=== PATIENT | female | born 1940 | race Caucasian/White ===

== ENCOUNTER 2020-06-10 11:17 | Outpatient (REF) | payer MEDICARE, SELFPAY | END 2020-06-10 11:18 | disposition home or self-care (01) | LOC: HO.LAB 11:17 | PROVIDERS: PCP Nurse Practitioner Adult Health; Referring Provider Nurse Practitioner Adult Health; Visit Provider Hospitalist | DX: J40 Bronchitis, not specified as acute or chronic (principal); J44.9 Chronic obstructive pulmonary disease, unspecified; K21.00 Gastro-esophageal reflux disease with esophagitis, without bleeding; R01.1 Cardiac murmur, unspecified; R05 Cough | CPT/HCPCS: 87070; 87205; 99202 ==

== ENCOUNTER 2020-06-11 08:41 | Outpatient (REF) | payer MEDICARE, SELFPAY ==
--- NOTE | 2020-06-11 10:20 | XR_ITS ---
EXAMINATION: XR CHEST CLINICAL INFORMATION: Bronchitis COMPARISON: Chest radiographs 08/15/2019 TECHNIQUE: 2 views of the chest were obtained. FINDINGS: There is no lobar or segmental airspace consolidation or groundglass opacity. Vague nodular opacity overlying right posterior fifth rib is similar to prior study given slight changes in positioning. The heart is normal in size. The vascularity is normal. The costophrenic sulci are clear. No acute bony abnormality. XR/XR chest 2V IMPRESSION: 1. No lobar or segmental airspace consolidation or groundglass opacity. 2. Small nodule apical right upper lobe, in retrospect likely stable from 08/15/2019. This could be further characterized with nonemergent noncontrast CT chest.
[2020-06-11 10:58] LABS: MANUAL DIFF FLAG NO
[2020-06-11 11:03] LABS: Basophils Percent Auto 0.2 % (0-2); Hematocrit 33.2 % (37-47); Hemoglobin 10.7 g/dl (12.0-16.0); Imm Gran Abs Auto 0.05 X10*3/uL (0.00-0.03); Imm Gran Pct Auto 0.8 % (0.0-0.4); Lymphocytes Absolute Auto 0.8 X10*3/uL (1.2-4.9); Lymphocytes Percent Auto 11.8 % (20-40); Mean Corpuscular HGB Conc 32.2 g/dl (31.0-35.0); Mean Corpuscular Hemoglobin 30.4 pg (27.0-33.0); Mean Corpuscular Volume 94.3 fL (80-98); Mean Platelet Volume 8.7 fL (9.4-12.3); Monocytes Absolute Auto 0.4 X10*3/uL (0.1-1.2); Monocytes Percent Auto 5.8 % (2-11); Neutrophils Absolute Auto 5.2 X10*3/uL (2.0-8.3); Neutrophils Percent Auto 81.4 % (45-73); Platelet Count 407 X10*3/uL (160-400); Red Blood Count 3.52 X10*6/uL (4.20-5.50); Red Cell Distribution Width 13.8 % (11.0-16.0); White Blood Count 6.3 X10*3/uL (4.8-10.8)
[2020-06-12 09:05] LABS: SARS COV2 IgG Negative (Negative)
[2020-06-12 22:27] LABS: Immunoglobulin E 22 kU/L (<OR=114)
[2020-06-13 13:52] LABS: Immunoglobulin A 110 mg/dL (70-320)
[2020-06-16 12:11] LABS: Immunoglobulin G Subclass 1 375 mg/dL (382-929); Immunoglobulin G Subclass 2 365 mg/dL (241-700); Immunoglobulin G Subclass 3 83 mg/dL (22-178); Immunoglobulin G Subclass 4 13.4 mg/dL (4-86); Immunoglobulin G Total 863 mg/dL (600-1540)
== END 2020-06-11 08:42 | disposition home or self-care (01) ==
LOC: HO.LAB 08:41
PROVIDERS: Hospitalist; PCP Nurse Practitioner Adult Health; Visit Provider Internal Medicine
DX: I35.0 Nonrheumatic aortic (valve) stenosis (principal); I48.0 Paroxysmal atrial fibrillation; I25.10 Atherosclerotic heart disease of native coronary artery without angina pectoris; I10 Essential (primary) hypertension; Z79.01 Long term (current) use of anticoagulants; Z79.899 Other long term (current) drug therapy; J44.9 Chronic obstructive pulmonary disease, unspecified; R05 Cough; Z20.828 Contact with and (suspected) exposure to other viral communicable diseases
CPT/HCPCS: 36415; 71046; 82784; 82785; 85025; 86003; 86769; 93005; 99212

== ENCOUNTER 2020-06-15 10:28 | Outpatient (REF) | payer MEDICARE, SELFPAY | END 2020-06-15 10:29 | disposition home or self-care (01) | LOC: HO.WFDLDS 10:28 | PROVIDERS: Visit Provider Internal Medicine | DX: Z20.828 Contact with and (suspected) exposure to other viral communicable diseases (principal) | CPT/HCPCS: U0003 ==

== ENCOUNTER → 2020-06-24 10:17 | Outpatient (BNVA) | payer MEDICARE, SELFPAY | PROVIDERS: PCP Nurse Practitioner Adult Health; Visit Provider Hospitalist | DX: J44.9 Chronic obstructive pulmonary disease, unspecified (principal); R05 Cough; K21.9 Gastro-esophageal reflux disease without esophagitis; R01.1 Cardiac murmur, unspecified; R93.89 Abnormal findings on diagnostic imaging of other specified body structures | CPT/HCPCS: 99212 ==

== ENCOUNTER 2020-08-26 08:00 | Outpatient (RCR) | payer MEDICARE, SELFPAY | END 2021-02-03 13:20 | disposition home or self-care (01) | LOC: HO.WCC 08:00 | PROVIDERS: Visit Provider Surgery | DX: I70.248 Atherosclerosis of native arteries of left leg with ulceration of other part of lower leg (principal); L97.822 Non-pressure chronic ulcer of other part of left lower leg with fat layer exposed | CPT/HCPCS: 11042; 15271; 15275; 97597; 99212; 99213; 99214; Q4187 ==

== ENCOUNTER → 2020-08-28 10:26 | Outpatient (REF) | payer MEDICARE, SELFPAY ==
--- NOTE | 2020-08-28 10:29 | CA_ITS ---
Transthoracic Echocardiogram Patient (Last, First, Middle): Lainey Floyd, Gender: Female Date of : 1940 Age: 80 Procedure Date: 08/28/2020 Procedure Type: Transthoracic Echocardiogram Location: OP Height: 160.02 cm Weight: 73.48 kg BSA: 1.77 m2 Heart Rate: bpm BP: 130 / 58 mmHg Net Lead Developer: MILTON Tobias MD: Chandler Cisneros MD Cessation Systems Outreach Specialist: Alex Alvarado MD Symptoms: I35.0 - Nonrheumatic aortic (valve) stenosis Study Quality: Good ECG Rhythm: Sinus Conclusions: - 1. Normal LV systolic function with impaired relaxation filling pattern 2. Moderate aortic stenosis 3. Moderate mitral and calcification with mild mitral regurgitation 4. Normal RV systolic pressure 5. No pericardial effusion Findings Left Ventricle Normal left ventricular size, thickness, and systolic function. The visually estimated ejection fraction is between 60-65%. Spectral Doppler is indicative of an impaired relaxation filling pattern. E/E prime ratio is between 8 and 15 consistent with indeterminate filling pressures. Right Ventricle Normal right ventricular cavity size and systolic function. Atria The left atrium is likely dilated. There is lipomatous hypertrophy of the interatrial septum. There is no evidence of interatrial shunt. The right atrium is normal in size. Aortic Valve There is moderate calcification of the aortic valve. There is moderate aortic valve stenosis. The peak aortic gradient is 33 mmHg.The mean gradient is 17 mmHg. The aortic valve area is 1.39 cm2. There is no aortic valve regurgitation. Mitral Valve There is mild anterior and moderate posterior mitral leaflet thickening. There is moderate mitral annular calcification. There is mild mitral valve regurgitation. There is no mitral valve stenosis. Pulmonic Valve The pulmonic valve was not well visualized. Tricuspid Valve Normal tricuspid valve structure. There is mild tricuspid valve regurgitation. The right ventricular systolic pressure is normal. The right ventricular systolic pressure is 26 mmHg. Normal right atrial pressure. There is no evidence of pulmonary hypertension. Great Vessels All visible segments of the aorta are normal in size. The pulmonary artery was not well visualized. Venous The inferior vena cava is normal in size and collapses greater than 50% with inspiration. Pericardium/Pleural There is no evidence of pericardial effusion. Prior Study Comparison Changes noted compared to prior study dated: 08/22/2019. aortic stenosis is is moderate Measurements 2D Linear Measurements IVSd: 0.90 0.6-0.9/0.6-1.0 cm LVIDd: 3.83 3.9-5.3/4.2-5.9 cm LVIDd Index: 2.16 2.4-3.2/2.2-3.1 cm/m2 LVIDs: 2.28 2.0-3.6 cm LVPWd: 0.92 0.7-1.1 cm Ao Root: 2.80 2.1-3.5 cm LA Diam: 3.20 2.7-3.8/3.0-4.0 cm LAIDs Index: 1.81 1.5-2.3 cm/m2 LV Mass: 129.15 67-162/88-224 g LV Mass Index: 72.96 43-95/49-115 g/m2 LVOT Diam: 2.00 3.0+(-)1.3 cm 2D Systolic Function EF 4C: 59.60 >55% EF 2C: 69.10 >55% EF BiP: 64.80 >55% Mitral Valve MV Pk E: 0.86 MV PK A: 1.07 MV Decel Time: 298.00 E/A: 0.80 E'Lateral: 7.51 E'Medial: 6.53 E/E' Med: 13.10 E/E' Lat: 11.40 PHT: 87.00 MVA PHT: 2.53 Decel Frontier: 2.88 Aortic Valve AoV Pk Bunny: 2.88 AoV Mn Bunny: 1.94 AoV VTI: 0.65 AoV Pk Grad: 33.00 Aov Mn Grad: 17.00 ELBERT Cont.VTI: 1.39 LVOT LVOT Pk Bunny: 1.21 LVOT Mn Bunny: 0.86 LVOT VTI: 0.29 LVOT Pk Grad: 6.00 LVOT Mn Grad: 3.00 LVOT Diam: 2.00 LVOT Area: 3.14 Diastolic Function MV Pk E: 0.86 MV Pk A: 1.07 E/A: 0.80 E'Medial: 6.53 E/E' Med: 13.10 E' Laterial: 7.51 E/E' Lat: 11.40 Tricuspid Valve TR Pk Bunny: 2.42 TR Pk Grad: 23.00 RA Press: 3.00 RVSP: 26.00 Great Vessels Aorta Ao Root-2D: 2.80 2.0-3.7 cm Ao Asc: 3.40 2.1-3.4 cm Ao Arch: 2.90 Updated in Other Vendor System with Status of Final Alex Alvarado MD electronically signed on 08/28/2020 3:56:29 PM with status of Final
== END ==
LOC: HO.CARD 10:26
PROVIDERS: PCP Nurse Practitioner Adult Health; Visit Provider Internal Medicine
DX: I51.3 Intracardiac thrombosis, not elsewhere classified (principal); I35.0 Nonrheumatic aortic (valve) stenosis
CPT/HCPCS: 93306

== ENCOUNTER 2020-09-03 13:54 | Outpatient (REF) | payer MEDICARE, SELFPAY ==
--- NOTE | 2020-09-03 | US_ITS ---
EXAMINATION: ANKLE-BRACHIAL INDICES SINGLE LEVEL PULSE VOLUME RECORDING ARTERIAL DUPLEX BILATERAL LEGS CLINICAL INFORMATION: Atherosclerosis. COMPARISON: None TECHNIQUE: Ankle-brachial indices and PVR at the ankle were obtained. Duplex Doppler of the bilateral lower extremity arterial systems was performed. FINDINGS: RIGHT: Ankle-brachial index: 1.5 with blood pressure greater than 200 consistent with heavily calcified arteries. PVR: Normal Common femoral: PSV 144 cm/s. Monophasic waveform. Deep femoral: PSV 143 cm/s. Triphase waveform. Proximal superficial femoral: PSV 137 cm/s. Triphasic waveform. Mid superficial femoral: PSV 109 cm/s. Triphasic waveform. Distal superficial femoral: PSV 70 cm/s. Triphasic waveform. Popliteal: PSV 117 cm/s. Triphasic waveform. Posterior tibial artery: PSV 79 cm/s. Monophasic waveform. LEFT: Ankle-brachial index: 1.5 with blood pressure greater than 200 consistent with heavily calcified arteries. PVR: Normal Common femoral: PSV 169 cm/s. Monophasic waveform. Deep femoral: PSV 140 cm/s. Triphasic waveform. Proximal superficial femoral: PSV 127 cm/s. Monophasic waveform. Mid superficial femoral: PSV 127 cm/s. Monophasic waveform. Distal superficial femoral: PSV 59 cm/s. Monophasic waveform. Popliteal: PSV 305 cm/s. Monophasic waveform. Posterior tibial artery: PSV 53 cm/s. Monophasic waveform. US/US arterial duplex LE BI IMPRESSION: The ankle-brachial indices are 1.5 bilaterally with blood pressure greater than 200 mmHg systolic consistent with heavily calcified arteries, therefore the indices are not reliable. Right lower extremity: diffuse atherosclerotic disease which is likely mild throughout the femoral and popliteal arteries and probably moderate in the posterior tibial artery. Left lower extremity: Diffuse atherosclerotic disease which is likely moderate in the SFA and posterior tibial artery and moderate to severe in the popliteal artery. MR angiography would be better than CT angiography if imaging is needed for surgical or endovascular planning. The calcified arteries would likely make CTA difficult to interpret, particularly below the knees.
== END 2020-09-03 13:55 | disposition home or self-care (01) ==
LOC: HO.US 13:54
PROVIDERS: Visit Provider Surgery
DX: I70.212 Atherosclerosis of native arteries of extremities with intermittent claudication, left leg (principal); L97.822 Non-pressure chronic ulcer of other part of left lower leg with fat layer exposed
CPT/HCPCS: 93923; 93925

== ENCOUNTER 2020-09-07 10:24 | Outpatient (REF) | payer MEDICARE, SELFPAY ==
--- NOTE | 2020-09-07 11:23 | XR_ITS ---
EXAMINATION: XR CHEST CLINICAL INFORMATION: Abnormal findings on diagnostic imaging of other sp COMPARISON: Previous chest x-ray most recent May 2020 TECHNIQUE: 2 views of the chest were obtained. FINDINGS: The cardiac and mediastinal contours are stable. There is mild right apical pleural thickening. Previously identified questioned right upper lung nodule is not appreciated. The lungs are clear. There is no pleural effusion or pneumothorax. There are is mild thoracolumbar scoliosis and degenerative change. XR/XR chest 2V IMPRESSION: Questioned right upper lobe nodule is not appreciated.
== END 2020-09-07 10:25 | disposition home or self-care (01) ==
LOC: HO.XRAY 10:24
PROVIDERS: Absent Provider Hospitalist; PCP Nurse Practitioner Adult Health; Visit Provider Internal Medicine
DX: I35.0 Nonrheumatic aortic (valve) stenosis (principal); I48.0 Paroxysmal atrial fibrillation; I25.10 Atherosclerotic heart disease of native coronary artery without angina pectoris; I10 Essential (primary) hypertension; Z78.9 Other specified health status; Z79.01 Long term (current) use of anticoagulants; Z79.899 Other long term (current) drug therapy
CPT/HCPCS: 71046; 99212

== ENCOUNTER → 2020-09-08 09:57 | Outpatient (BNVA) | payer MEDICARE, SELFPAY | PROVIDERS: PCP Nurse Practitioner Adult Health; Visit Provider Surgery Vascular Surgery | DX: Z13.89 Encounter for screening for other disorder (principal) | CPT/HCPCS: 99202 ==

== ENCOUNTER 2020-09-09 07:31 | Day surgery (SDC) | payer MEDICARE, SELFPAY ==
[2020-09-09] VITALS (7 sets, daily range): BP systolic 90–142; BP diastolic 36–55; PULSE 53–65; RESP 15–20; TEMP 36.8; O2SAT 97–100; BMI 28.5
[2020-09-09 08:12] LABS: MANUAL DIFF FLAG NO
[2020-09-09 08:17] LABS: Basophils Percent Auto 0.2 % (0-2); Eosinophils Absolute Auto 0.1 X10*3/uL (0.0-0.4); Eosinophils Percent Auto 1.3 % (0-4); Hematocrit 34.1 % (37-47); Hemoglobin 11.1 g/dl (12.0-16.0); Imm Gran Abs Auto 0.01 X10*3/uL (0.00-0.03); Imm Gran Pct Auto 0.2 % (0.0-0.4); Lymphocytes Absolute Auto 1.5 X10*3/uL (1.2-4.9); Lymphocytes Percent Auto 28.4 % (20-40); Mean Corpuscular HGB Conc 32.6 g/dl (31.0-35.0); Mean Corpuscular Hemoglobin 31.5 pg (27.0-33.0); Mean Corpuscular Volume 96.9 fL (80-98); Mean Platelet Volume 8.3 fL (9.4-12.3); Monocytes Absolute Auto 0.6 X10*3/uL (0.1-1.2); Monocytes Percent Auto 11.5 % (2-11); Neutrophils Absolute Auto 3.1 X10*3/uL (2.0-8.3); Neutrophils Percent Auto 58.4 % (45-73); Platelet Count 354 X10*3/uL (160-400); Red Blood Count 3.52 X10*6/uL (4.20-5.50); Red Cell Distribution Width 13.2 % (11.0-16.0); White Blood Count 5.3 X10*3/uL (4.8-10.8)
[2020-09-09 08:22] LABS: INTERNATIONAL NORM RATIO 0.9 (0.9-1.1); Prothrombin Time 11.1 SEC (10.8-13.0)
[2020-09-09 08:25] LABS: Partial Thromboplastin Time 35.9 SEC (24.1-38.0)
[2020-09-09 09:12] LABS: Anion Gap 11 (12-20); Blood Urea Nitrogen 17 mg/dL (9-16); Carbon Dioxide 26 mmol/L (22-29); Chloride 104 mmol/L (96-108); Creatinine Clr Calc Pharmacy 57.6; Estimated Glomerular Filt Rate > 60; Glucose Random 91 mg/dL (60-115); Potassium 4.3 mmol/l (3.3-5.1); Sodium 137 mmol/L (135-145)
[2020-09-09] MEDS: iohexoL 300 MG/ML 100 ML INFUS..BTL 150 ML IV (11:14)
[2020-09-09] MEDS: Lidocaine HCl 1 % MPF 5 ML VIAL 10 ML SUBCUT (11:18)
--- NOTE | 2020-09-09 13:20 | OP_ITS ---
SURGEON: Tio Andersen MD INDICATIONS: Lainey is a 80-year-old female, sent to us by the [facility]. Upon noninvasive testing, she was noted to have disease in the distal SFA and popliteal. She now presents for endovascular intervention. Risks, benefits, and complications were discussed in detail with the patient. The patient understood and consented. PREOPERATIVE DIAGNOSIS: POSTOPERATIVE DIAGNOSIS: PROCEDURE PERFORMED: ESTIMATED BLOOD LOSS: Minimal. COMPLICATIONS: ANESTHESIA: Local with moderate conscious sedation for a total of 46 minutes performed by me. ASSISTANTS: SPECIMENS: None. 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 PROCEDURES PERFORMED: 1. Ultrasound-guided right common femoral access. 2. Aortogram with left lower extremity runoff. 3. Angioplasty of left popliteal artery. 4. StarClose closure device placement. DESCRIPTION OF PROCEDURE: The patient was brought to the angiography suite, prior to which a timeout was called for patient identification and site verification. Bilateral groins were prepped and draped in standard surgical fashion. Under ultrasound guidance, right common femoral was accessed with micropuncture needle, wire, and subsequent 4-Micronesian sheath. Flush catheter was brought up to the level of the aorta. Aortogram was then undertaken. We brought it down to the level of the iliacs. Iliacs were subsequently imaged. Catheter was brought up and over into the left side and parked in the SFA, through which runoff study was then undertaken. At this point, 4000 units of systemic heparin was administered. Up and over 6-Micronesian sheath was then placed and the left lower extremity was then subsequently imaged. We then noted near occlusive lesion at the P1 segment of the popliteal. We were able to easily traverse this lesion. We confirmed true lumen through catheter. Once this was accomplished, we initially plastied this area with a 5 x 20 regular balloon and it required multiple insufflations to cover the area and once this was accomplished, we then brought in a 5 x 60 drug-coated balloon. This was brought into position and under 3 minutes and insufflated for a total of 3 minutes in duration. Once this was accomplished, excellent result was achieved. Catheter, wire, and sheath were brought back to the ipsilateral side. StarClose closure device was deployed. The patient tolerated the procedure well, returned to Recovery with stable vitals. INTERPRETATION OF FILMS: 1. Aortogram demonstrated normal-caliber aorta, good flow down to the iliacs. 2. Right side had good flow all the way down to the common femoral, left side, fair amount of tortuosity, almost 90 degrees angle in the iliac going down into the common femoral. SFA was patent all the way up through the proximal 2/3 behind-knee popliteal and distal 1/3 of the SFA had mild stenosis and behind-knee popliteal and the P1 segment had near occlusive disease. Below-knee popliteal was good in caliber and she did have 3-vessel runoff, posterior tibial being most dominant, peroneal went all the way down to the ankle. Anterior tibial was present, but it was quite diminutive throughout its entire length. CONCLUSION: Successful angiogram, successful left popliteal plasty. The patient is on formal anticoagulation and will not require additional anticoagulants. DRAINS: None. MD LOIS Tracey/LAURIE / [id number]
== END 2020-09-09 15:00 | disposition home or self-care (01) ==
PROVIDERS: Visit Provider Surgery Vascular Surgery
DX: I70.248 Atherosclerosis of native arteries of left leg with ulceration of other part of lower leg (principal); L97.829 Non-pressure chronic ulcer of other part of left lower leg with unspecified severity; I25.10 Atherosclerotic heart disease of native coronary artery without angina pectoris; J44.9 Chronic obstructive pulmonary disease, unspecified; I10 Essential (primary) hypertension; I48.0 Paroxysmal atrial fibrillation; Z79.51 Long term (current) use of inhaled steroids; Z79.899 Other long term (current) drug therapy
CPT/HCPCS: 36415; 37224; 76942; 80048; 85025; 85610; 85730; 99152; 99153; C1725; C1760; C1769; C1887; C1894; J2250; J3010; Q9967

== ENCOUNTER 2020-09-21 13:29 | Outpatient (REF) | payer MEDICARE, SELFPAY ==
--- NOTE | ~2020-09-21 | MM_ITS ---
EXAMINATION: MM SCREENING DIGITAL BREAST TOMOSYNTHESIS, BILATERAL CLINICAL INFORMATION: Screening. Asymptomatic. The lifetime risk of breast cancer based on the Tyrer-Cuzick Model is 6%. COMPARISON: Mammography: 06/25/2019, 06/01/2018, 05/09/2017 TECHNIQUE: Digital breast tomosynthesis is performed in both the craniocaudal and mediolateral oblique views along with computer-aided detection (CAD). Synthesized 2D images are generated from the tomosynthesis. FINDINGS: There are scattered areas of fibroglandular density (ACR BI-RADS breast composition Category b). There are no significant masses, abnormal calcifications, or other abnormalities. The axilla and skin contours are unremarkable. MM/MM tomosynthesis screening BI IMPRESSION: No mammographic evidence of malignancy. ASSESSMENT: BI-RADS 1: Negative RECOMMENDATION: Routine annual mammography screening. This patient's information was entered into a reminder system with a target due date for their next mammogram.
== END 2020-09-21 13:30 | disposition home or self-care (01) ==
LOC: HO.MAMMO 13:29
PROVIDERS: Visit Provider Nurse Practitioner Adult Health
DX: Z12.31 Encounter for screening mammogram for malignant neoplasm of breast (principal)
CPT/HCPCS: 77063; 77067

== ENCOUNTER → 2020-09-24 09:13 | Outpatient (BNVA) | payer MEDICARE, SELFPAY | PROVIDERS: PCP Nurse Practitioner Adult Health; Visit Provider Surgery Vascular Surgery | DX: I73.9 Peripheral vascular disease, unspecified (principal) | CPT/HCPCS: 99212 ==

== ENCOUNTER → 2020-10-06 10:58 | Outpatient (BNVA) | payer MEDICARE, SELFPAY | PROVIDERS: PCP Nurse Practitioner Adult Health; Visit Provider Hospitalist | DX: Z76.89 Persons encountering health services in other specified circumstances (principal) | CPT/HCPCS: Q3014 ==

== ENCOUNTER 2020-12-23 12:20 | Outpatient (REF) | payer MEDICARE, SELFPAY ==
--- NOTE | ~2020-12-23 | US_ITS ---
EXAMINATION: COLOR-FLOW DUPLEX IMAGING OF THE BILATERAL LOWER EXTREMITY ARTERIAL SYSTEM. VELOCITY MEASUREMENTS THROUGHOUT THE FEMORAL ARTERIES WITH ANKLE-BRACHIAL PERIPHERAL ARTERIAL TESTING. CLINICAL INFORMATION: This is a 80-year-old female with atherosclerotic disease. Peripheral vascular disease. Interventional Radiologist: Manish Ely M.D., F.S.I.R., FYaniC.Yeny. COMPARISON: Comparison is made to a previous study dated 09/03/2020. RIGHT FEMORAL RUNOFF VELOCITIES: The right common femoral artery measures 143 cm/s and triphasic. The right profunda femoral artery is 152 cm/s and is biphasic. Right proximal superficial femoral artery measures 126 cm/s and triphasic. Mid superficial femoral artery is 127 cm/s and triphasic. Distal right superficial femoral artery measures 76 cm/s and is triphasic. Right popliteal velocity measures 116 cm/s and is biphasic. The posterior tibial artery velocity measures 66 cm/s and was biphasic. The right ankle-brachial index is 1.29. LEFT FEMORAL RUNOFF VELOCITIES: The left common femoral artery measures 152 cm/s and triphasic. The left profunda femoral artery is 99 cm/s and is triphasic. Left proximal superficial femoral artery measures 128 cm/s and triphasic. Mid superficial femoral artery is 102 cm/s and triphasic. Distal left superficial femoral artery measures 132 cm/s and is triphasic. Left popliteal velocity measures 64 cm/s and is triphasic. The posterior tibial artery velocity measures 58 cm/s and was monophasic. The left ankle brachial index is 1.29. US/US arterial duplex LE BI IMPRESSION: 1. Although there is diffuse scattered atherosclerotic plaque in the blood pressures are greater than 200 mmHg which decreases the sensitivity examination, no hemodynamically significant stenosis is seen bilaterally.
--- NOTE | ~2020-12-23 | US_ITS ---
EXAMINATION: COLOR-FLOW DUPLEX IMAGING OF THE BILATERAL LOWER EXTREMITY ARTERIAL SYSTEM. VELOCITY MEASUREMENTS THROUGHOUT THE FEMORAL ARTERIES WITH ANKLE-BRACHIAL PERIPHERAL ARTERIAL TESTING. CLINICAL INFORMATION: This is a 80-year-old female with atherosclerotic disease. Peripheral vascular disease. Interventional Radiologist: Manish Ely M.D., F.S.I.R., FAlber.Yeny. COMPARISON: Comparison is made to a previous study dated 09/03/2020. RIGHT FEMORAL RUNOFF VELOCITIES: The right common femoral artery measures 143 cm/s and triphasic. The right profunda femoral artery is 152 cm/s and is biphasic. Right proximal superficial femoral artery measures 126 cm/s and triphasic. Mid superficial femoral artery is 127 cm/s and triphasic. Distal right superficial femoral artery measures 76 cm/s and is triphasic. Right popliteal velocity measures 116 cm/s and is biphasic. The posterior tibial artery velocity measures 66 cm/s and was biphasic. The right ankle-brachial index is 1.29. LEFT FEMORAL RUNOFF VELOCITIES: The left common femoral artery measures 152 cm/s and triphasic. The left profunda femoral artery is 99 cm/s and is triphasic. Left proximal superficial femoral artery measures 128 cm/s and triphasic. Mid superficial femoral artery is 102 cm/s and triphasic. Distal left superficial femoral artery measures 132 cm/s and is triphasic. Left popliteal velocity measures 64 cm/s and is triphasic. The posterior tibial artery velocity measures 58 cm/s and was monophasic. The left ankle brachial index is 1.29. US/US CARLOS complete IMPRESSION: 1. Although there is diffuse scattered atherosclerotic plaque in the blood pressures are greater than 200 mmHg which decreases the sensitivity examination, no hemodynamically significant stenosis is seen bilaterally.
== END 2020-12-23 12:21 | disposition home or self-care (01) ==
LOC: HO.US 12:20
PROVIDERS: PCP Nurse Practitioner Adult Health; Visit Provider Surgery Vascular Surgery
DX: I70.213 Atherosclerosis of native arteries of extremities with intermittent claudication, bilateral legs (principal)
CPT/HCPCS: 93923; 93925

== ENCOUNTER → 2021-01-07 09:37 | Outpatient (BNVA) | payer MEDICARE, SELFPAY | PROVIDERS: PCP Nurse Practitioner Adult Health; Visit Provider Surgery Vascular Surgery | DX: I73.9 Peripheral vascular disease, unspecified (principal); L97.929 Non-pressure chronic ulcer of unspecified part of left lower leg with unspecified severity; Z88.8 Allergy status to other drugs, medicaments and biological substances | CPT/HCPCS: 99212 ==

== ENCOUNTER → 2021-01-12 10:27 | Outpatient (BNVA) | payer MEDICARE, SELFPAY | PROVIDERS: PCP Nurse Practitioner Adult Health; Visit Provider Internal Medicine | DX: I35.0 Nonrheumatic aortic (valve) stenosis (principal); I48.0 Paroxysmal atrial fibrillation; I25.10 Atherosclerotic heart disease of native coronary artery without angina pectoris; I10 Essential (primary) hypertension; Z78.9 Other specified health status | CPT/HCPCS: 93005; 99212 ==

== ENCOUNTER → 2021-04-28 10:41 | Outpatient (BNVA) | payer MEDICARE, SELFPAY | PROVIDERS: PCP Nurse Practitioner Adult Health; Referring Provider Nurse Practitioner Adult Health; Visit Provider Internal Medicine | DX: I35.0 Nonrheumatic aortic (valve) stenosis (principal); I48.0 Paroxysmal atrial fibrillation; I25.10 Atherosclerotic heart disease of native coronary artery without angina pectoris; I10 Essential (primary) hypertension; Z78.9 Other specified health status | CPT/HCPCS: 99212 ==

== ENCOUNTER → 2021-04-29 12:51 | Outpatient (BNVA) | payer MEDICARE, SELFPAY | PROVIDERS: PCP Nurse Practitioner Adult Health; Visit Provider Hospitalist | DX: J44.9 Chronic obstructive pulmonary disease, unspecified (principal); R05 Cough | CPT/HCPCS: 99212 ==

== ENCOUNTER 2021-06-23 12:20 | Outpatient (REF) | payer MEDICARE, SELFPAY ==
--- NOTE | ~2021-06-23 | US_ITS ---
EXAMINATION: NONINVASIVE ASSESSMENT OF THE ARTERIES OF BOTH LOWER EXTREMITIES WITH ANKLE PRESSURE MEASUREMENTS, ANKLE BRACHIAL INDICES, PVR MEASUREMENTS AND BILATERAL LOWER EXTREMITY DUPLEX. CLINICAL INFORMATION: Peripheral vascular disease. History of hypertension and prior vascular surgery. TECHNIQUE: Ankle pressure measurements, ankle brachial indices and PVR tracings were obtained of the lower extremity arterial system bilaterally. In addition, duplex Doppler techniques with wave form analysis and measurement of velocities in the common femoral, profunda femoral, superficial femoral, popliteal and tibial arteries was performed. The study was performed only at rest. COMPARISON: 09/03/2020. FINDINGS: NONINVASIVE ASSESSMENT OF THE ARTERIES OF BOTH LOWER EXTREMITIES WITH ABIs: RIGHT LEG: Right ankle-brachial index: 1.36, likely artificially elevated due to vessel calcification. PVR (ankle): Abnormal LEFT LEG: Ankle-brachial index: 1.36, likely artificially elevated due to vessel calcification. PVR (ankle): Abnormal, dampened. BILATERAL LOWER EXTREMITY DUPLEX ULTRASOUND: RIGHT LEG: Common femoral artery: 181 cm/s, Diastolic flow reversal: Yes Profunda femoris artery: 94.4 cm/s, Diastolic flow reversal: Yes Superficial femoral artery (proximal): 113 cm/s, Diastolic flow reversal: Yes Superficial femoral artery (mid): 118 cm/s, Diastolic flow reversal: Yes Superficial femoral artery (distal): 86.8 cm/s, Diastolic flow reversal: Yes Popliteal artery: 132 cm/s, Diastolic flow reversal: Yes Posterior tibial artery: 67.6 cm/s, Diastolic flow reversal: Yes Peroneal artery: 50.3 cm/s, Diastolic flow reversal: Yes Collaterals: Arising from the distal SFA, 93.2 cm/s Arising from the posterior tibial artery, 34.3 cm/s LEFT LEG: Common femoral artery: 130 cm/s, Diastolic flow reversal: Yes Profunda femoris artery: 146 cm/s, Diastolic flow reversal: Yes Superficial femoral artery (proximal): 148 cm/s, Diastolic flow reversal: Yes Superficial femoral artery (mid): 149 cm/s, Diastolic flow reversal: Yes Superficial femoral artery (distal): 159 cm/s, Diastolic flow reversal: Yes Popliteal artery: 58.9 cm/s, Diastolic flow reversal: Yes Posterior tibial artery: 62.9 cm/s, Diastolic flow reversal: Yes Peroneal artery: 36.4 cm/s, Diastolic flow reversal: Yes Collaterals: Arising from the distal SFA, 71.1 cm/s Arising from the distal SFA, 80.1 cm/s US/US arterial duplex LE BI IMPRESSION: RIGHT LEG: CARLOS 1.36, likely artificially elevated due to vessel calcification/noncompressibility. Duplex exam reveals mild multifocal outflow stenosis. No hemodynamically significant lesions identified. Collateral vessels are seen within the thigh and calf. LEFT LEG: CARLOS 1.36, likely artificially elevated due to vessel calcification/noncompressibility. Duplex exam reveals mild multifocal outflow stenosis. No hemodynamically significant lesions identified. Collateral vessels are identified within the thigh. CARLOS Reference: - >0.97-1.25 = normal - no significant arterial disease - 0.75-0.96 = mild peripheral arterial disease - 0.5-0.74 = moderate peripheral arterial disease - <0.50 = severe peripheral arterial disease
== END 2021-06-23 12:21 | disposition home or self-care (01) ==
LOC: HO.US 12:20
PROVIDERS: PCP Nurse Practitioner Adult Health; Visit Provider Surgery Vascular Surgery
DX: I73.9 Peripheral vascular disease, unspecified (principal)
CPT/HCPCS: 93925

== ENCOUNTER → 2021-07-06 09:57 | Outpatient (BNVA) | payer MEDICARE, SELFPAY | PROVIDERS: PCP Nurse Practitioner Adult Health; Visit Provider Surgery Vascular Surgery | DX: I73.9 Peripheral vascular disease, unspecified (principal) | CPT/HCPCS: 99212 ==

== ENCOUNTER 2021-07-19 09:00 | Outpatient (RCR) | payer MEDICARE, SELFPAY ==
[2021-07-15 08:27] VITALS: BP 148/80
== END 2021-08-31 07:38 | disposition home or self-care (01) ==
LOC: HO.PTWFD 09:00
PROVIDERS: PCP Nurse Practitioner Adult Health; Visit Provider Otolaryngology
DX: H81.13 Benign paroxysmal vertigo, bilateral (principal)
CPT/HCPCS: 97116; 97162; 97530; 97535

== ENCOUNTER 2021-09-24 13:09 | Outpatient (REF) | payer MEDICARE, SELFPAY ==
--- NOTE | ~2021-09-24 | XR_ITS ---
EXAMINATION: XR CHEST CLINICAL INFORMATION: Bronchitis COMPARISON: 09/07/2020 TECHNIQUE: 2 views of the chest were obtained. FINDINGS: Normal symmetric lung volumes. No parenchymal consolidation. Stable biapical pleural-parenchymal scarring, right greater than left. No pleural effusion. No pneumothorax. Cardiomediastinal silhouette and pulmonary vascularity are within normal limits. Aorta is atherosclerotic. No acute osseous abnormalities. XR/XR chest 2V IMPRESSION: No acute findings.
== END 2021-09-24 13:10 | disposition home or self-care (01) ==
LOC: HO.XRAY 13:09
PROVIDERS: PCP Nurse Practitioner Adult Health; Visit Provider Hospitalist
DX: J40 Bronchitis, not specified as acute or chronic (principal); Z79.899 Other long term (current) drug therapy
CPT/HCPCS: 71046; 99212

== ENCOUNTER 2021-09-29 10:36 | Outpatient (REF) | payer MEDICARE, SELFPAY ==
--- NOTE | ~2021-09-29 | MM_ITS ---
EXAMINATION: MM SCREENING DIGITAL BREAST TOMOSYNTHESIS, BILATERAL CLINICAL INFORMATION: Screening. Asymptomatic. The lifetime risk of breast cancer based on the Tyrer-Cuzick Model is 6%. COMPARISON: Mammography: 09/21/2020, 06/25/2019, 06/01/2018 TECHNIQUE: Digital breast tomosynthesis is performed in both the craniocaudal and mediolateral oblique views along with computer-aided detection (CAD). Synthesized 2D images are generated from the tomosynthesis. FINDINGS: There are scattered areas of fibroglandular density (ACR BI-RADS breast composition Category b). There are no significant masses, abnormal calcifications, or other abnormalities. Parenchymal pattern is similar to prior studies. The axilla and skin contours are unremarkable. No significant changes. MM/MM tomosynthesis screening BI IMPRESSION: No mammographic evidence of malignancy. ASSESSMENT: BI-RADS 1: Negative RECOMMENDATION: Routine annual mammography screening. This patient's information was entered into a reminder system with a target due date for their next mammogram.
== END 2021-09-29 10:37 | disposition home or self-care (01) ==
LOC: HO.MAMMO 10:36
PROVIDERS: PCP Nurse Practitioner Adult Health; Visit Provider Nurse Practitioner Adult Health
DX: Z12.31 Encounter for screening mammogram for malignant neoplasm of breast (principal)
CPT/HCPCS: 77063; 77067

== ENCOUNTER → 2021-10-14 07:27 | Outpatient (REF) | payer MEDICARE, SELFPAY ==
--- NOTE | 2021-10-14 07:32 | CA_ITS ---
Transthoracic Echocardiogram Patient (Last, First, Middle): Lainey Floyd, Gender: Female Date of : 1940 Age: 81 Procedure Date: 10/14/2021 Procedure Type: Transthoracic Echocardiogram Location: OP Height: 160.02 cm Weight: 73.94 kg BSA: 1.77 m2 Heart Rate: bpm BP: 122 / 60 mmHg Program Attendant: MILENA Referring MD: Chandler Cisneros MD Software Program Manager: Alex Alvarado MD Symptoms: I35.0 - Nonrheumatic aortic (valve) stenosis Study Quality: Fair ECG Rhythm: Sinus Conclusions: - 1. Normal LV systolic function with impaired relaxation filling pattern 2. Moderate aortic stenosis 3. Normal RV systolic pressure 4. No pericardial effusion Findings Left Ventricle Normal left ventricular size, thickness, and systolic function. The visually estimated ejection fraction is between 55-60%. Spectral Doppler is indicative of an impaired relaxation filling pattern. E/E prime ratio is between 8 and 15 consistent with indeterminate filling pressures. Right Ventricle Normal right ventricular cavity size and systolic function. Atria The left atrium is normal in size. Interatrial shunt cannot be excluded. The right atrium is normal in size. Aortic Valve The aortic valve was not well visualized. There is moderate calcification of the aortic valve. There is moderate aortic valve stenosis. There is no aortic valve regurgitation. Mitral Valve There is mild anterior and posterior mitral leaflet thickening. There is moderate mitral annular calcification. There is trace mitral valve regurgitation. There is no mitral valve stenosis. Pulmonic Valve The pulmonic valve was not well visualized. Tricuspid Valve Likely normal tricuspid valve structure and function. There is mild tricuspid valve regurgitation. The right ventricular systolic pressure is normal. The right ventricular systolic pressure is 24 mmHg. Normal right atrial pressure. There is no evidence of pulmonary hypertension. Great Vessels All visible segments of the aorta are normal in size. The pulmonary artery was not well visualized. Venous The inferior vena cava is normal in size and collapses greater than 50% with inspiration. Pericardium/Pleural There is no evidence of pericardial effusion. Prior Study Comparison No significant change compared to prior study dated: 08/28/2020. Measurements 2D Linear Measurements IVSd: 0.93 0.6-0.9/0.6-1.0 cm LVIDd: 3.87 3.9-5.3/4.2-5.9 cm LVIDd Index: 2.19 2.4-3.2/2.2-3.1 cm/m2 LVIDs: 2.47 2.0-3.6 cm LVPWd: 1.05 0.7-1.1 cm LA Diam: 3.20 2.7-3.8/3.0-4.0 cm LAIDs Index: 1.81 1.5-2.3 cm/m2 LV Mass: 147.72 67-162/88-224 g LV Mass Index: 83.46 43-95/49-115 g/m2 LVOT Diam: 1.90 3.0+(-)1.3 cm 2D Systolic Function EF 4C: 55.70 >55% EF BiP: 52.40 >55% Mitral Valve MV Pk E: 0.85 MV PK A: 1.08 MV Decel Time: 245.00 E/A: 0.80 E'Lateral: 7.62 E'Medial: 7.51 E/E' Med: 11.30 E/E' Lat: 11.10 PHT: 72.00 MVA PHT: 3.06 Decel [place]: 3.46 Aortic Valve AoV Pk Bunny: 2.44 AoV Mn Bunny: 1.74 AoV VTI: 0.59 AoV Pk Grad: 24.00 Aov Mn Grad: 14.00 ELBERT Cont.VTI: 1.36 LVOT LVOT Pk Bunny: 1.18 LVOT Mn Bunny: 0.79 LVOT VTI: 0.32 LVOT Pk Grad: 6.00 LVOT Mn Grad: 3.00 LVOT Diam: 1.90 LVOT Area: 2.84 Diastolic Function MV Pk E: 0.85 MV Pk A: 1.08 E/A: 0.80 E'Medial: 7.51 E/E' Med: 11.30 E' Laterial: 7.62 E/E' Lat: 11.10 Right Ventricle TAPSE (mm): 2.56 TVS' Bunny: 15.90 Tricuspid Valve TR Pk Bunny: 2.28 TR Pk Grad: 21.00 RA Press: 3.00 RVSP: 24.00 Great Vessels Aorta Ao Asc: 3.40 2.1-3.4 cm Updated in Other Vendor System with Status of Final Alex Alvarado MD electronically signed on 10/15/2021 3:34:36 PM with status of Final
--- NOTE | 2021-10-14 07:32 | HM_ITS ---
Conclusion: 1. Patient was monitored for total period of 3 days and 4 hours 2. Baseline rhythm is normal sinus rhythm with average heart of 65 beats per minute 3. No significant pauses or bradycardia noted 4. Twenty short runs of SVTs consistent with SVT with longest episode lasting 9 beats 5. Total of 1500 PACs accounting for 0.5% total burden account for occasional PACs 6. No patient reported events MTDD
== END ==
LOC: HO.CARD 07:27
PROVIDERS: Visit Provider Internal Medicine
DX: I35.0 Nonrheumatic aortic (valve) stenosis (principal); R00.2 Palpitations; R94.31 Abnormal electrocardiogram [ECG] [EKG]
CPT/HCPCS: 93242; 93306

== ENCOUNTER → 2021-10-28 12:57 | Outpatient (BNVA) | payer MEDICARE, SELFPAY | PROVIDERS: PCP Nurse Practitioner Adult Health; Visit Provider Internal Medicine | DX: I35.0 Nonrheumatic aortic (valve) stenosis (principal); I48.0 Paroxysmal atrial fibrillation; I25.10 Atherosclerotic heart disease of native coronary artery without angina pectoris; I10 Essential (primary) hypertension; Z78.9 Other specified health status | CPT/HCPCS: 93005; 99212 ==

== ENCOUNTER → 2021-12-07 13:05 | Outpatient (BNVA) | payer MEDICARE, SELFPAY | PROVIDERS: PCP Nurse Practitioner Adult Health; Visit Provider Hospitalist | DX: J44.9 Chronic obstructive pulmonary disease, unspecified (principal); R05.9 Cough, unspecified | CPT/HCPCS: 99212 ==

== ENCOUNTER → 2022-05-16 08:49 | Outpatient (BNVA) | payer MEDICARE, SELFPAY | PROVIDERS: PCP Nurse Practitioner Adult Health; Visit Provider Internal Medicine | DX: I48.0 Paroxysmal atrial fibrillation (principal); I35.0 Nonrheumatic aortic (valve) stenosis; I25.10 Atherosclerotic heart disease of native coronary artery without angina pectoris; I10 Essential (primary) hypertension; Z79.01 Long term (current) use of anticoagulants; Z79.899 Other long term (current) drug therapy | CPT/HCPCS: 93005; 99212 ==

== ENCOUNTER → 2022-06-17 13:44 | Outpatient (BNVA) | payer MEDICARE, SELFPAY | PROVIDERS: PCP Nurse Practitioner Adult Health; Visit Provider Hospitalist | DX: J44.9 Chronic obstructive pulmonary disease, unspecified (principal); R05.9 Cough, unspecified | CPT/HCPCS: 99212 ==

== ENCOUNTER 2022-07-26 09:53 | Outpatient (REF) | payer MEDICARE, SELFPAY ==
--- NOTE | ~2022-07-26 | US_ITS ---
EXAMINATION: Noninvasive assessment of the bilateral lower extremities with ARTERIAL DUPLEX and ANKLE BRACHIAL INDICES (ABIs). CLINICAL INFORMATION: Peripheral vascular disease. History of prior left popliteal artery angioplasty TECHNIQUE: Duplex Doppler techniques with waveform analysis and measurement of velocities in the bilateral common femoral, profunda femoris, superficial femoral, popliteal and tibial arteries were performed. Additionally, ankle pulse volume recordings, ankle pressure measurements and ankle brachial indices were obtained of the lower extremity arterial system bilaterally. The study was performed only at rest. COMPARISON: 06/23/2021 FINDINGS: DIRECT DUPLEX DOPPLER FINDINGS: RIGHT LEG: Common femoral artery: 147 cm/s, phasicity: Biphasic Profunda femoris artery: 82.7 cm/s, phasicity: Biphasic Superficial femoral artery (proximal): 121 cm/s, phasicity: Triphasic Superficial femoral artery (mid): 97.9 cm/s, phasicity: Triphasic Superficial femoral artery (distal): 110 cm/s, phasicity: Triphasic Popliteal artery: 131 cm/s, phasicity: Triphasic Posterior tibial artery: 128 cm/s, phasicity: Monophasic Peroneal artery: 105 cm/s, phasicity: Triphasic LEFT LEG: Common femoral artery: 170 cm/s, phasicity: Triphasic Profunda femoris artery: 68.8 cm/s, phasicity: Triphasic Superficial femoral artery (proximal): 129 cm/s, phasicity: Triphasic Superficial femoral artery (mid): 121 cm/s, phasicity: Triphasic Superficial femoral artery (distal): 128 cm/s, phasicity: Triphasic Popliteal artery: 96.7 cm/s, phasicity: Triphasic Posterior tibial artery: 65.1 cm/s, phasicity: Monophasic Peroneal artery: 90.9 cm/s, phasicity: Biphasic ANKLE-BRACHIAL INDEX: Right: 1.04? Left: Not performed ANKLE PRESSURES: Right: PT 171 Left: Not performed ANKLE PVR WAVEFORMS: Right: Abnormal Left: Abnormal US/US arterial duplex LE BI IMPRESSION: Right leg: Normal ankle brachial index. Abnormal pulse volume waveform. Normal velocities and unremarkable waveforms in the right lower extremity without significant stenosis Left leg: Ankle-brachial index was not performed. Normal velocities with unremarkable waveforms. No significant stenosis. CARLOS Reference: - >1.4 = calcified vessels - 0.9 - 1.4 = normal - no significant arterial disease - 0.7 - 0.89 = mild peripheral arterial disease - 0.51 - 0.69 = moderate peripheral arterial disease - ? 0.50 = severe peripheral arterial disease - < .30 = critical arterial disease
== END 2022-07-26 09:54 | disposition home or self-care (01) ==
LOC: HO.US 09:53
PROVIDERS: Visit Provider Surgery Vascular Surgery
DX: I70.213 Atherosclerosis of native arteries of extremities with intermittent claudication, bilateral legs (principal)
CPT/HCPCS: 93925

== ENCOUNTER → 2022-08-09 13:52 | Outpatient (BNVA) | payer MEDICARE, SELFPAY | PROVIDERS: PCP Nurse Practitioner Adult Health; Visit Provider Surgery Vascular Surgery | DX: I73.9 Peripheral vascular disease, unspecified (principal) | CPT/HCPCS: 99212 ==

== ENCOUNTER 2022-09-30 13:31 | Outpatient (REF) | payer MEDICARE, SELFPAY ==
--- NOTE | ~2022-09-30 | MM_ITS ---
EXAMINATION: MM SCREENING DIGITAL BREAST TOMOSYNTHESIS, BILATERAL CLINICAL INFORMATION: Screening. Asymptomatic. The lifetime risk of breast cancer based on the Tyrer-Cuzick Model is 5%. COMPARISON: Mammography: 09/29/2021, 10/04/2010 08/02/2019, 06/01/2018 TECHNIQUE: Digital breast tomosynthesis is performed in both the craniocaudal and mediolateral oblique views along with computer-aided detection (CAD). Synthesized 2D images are generated from the tomosynthesis. FINDINGS: There are scattered areas of fibroglandular density (ACR BI-RADS breast composition Category b). There are no significant masses, abnormal calcifications, or other abnormalities. Parenchymal pattern is similar to prior studies. There is no developing density or architectural abnormality. Oval density posterior right breast on MLO view corresponds to a vein, similar to remote prior mammography. The axilla and skin contours are unremarkable. No significant changes. MM/MM tomosynthesis screening BI IMPRESSION: No mammographic evidence of malignancy. ASSESSMENT: BI-RADS 2: Benign RECOMMENDATION: Routine annual mammography screening. This patient's information was entered into a reminder system with a target due date for their next mammogram.
== END 2022-09-30 13:32 | disposition home or self-care (01) ==
LOC: HO.MAMMO 13:31
PROVIDERS: Visit Provider Nurse Practitioner Adult Health
DX: Z12.31 Encounter for screening mammogram for malignant neoplasm of breast (principal)
CPT/HCPCS: 77063; 77067

== ENCOUNTER → 2022-11-15 10:50 | Outpatient (REF) | payer MEDICARE, SELFPAY ==
--- NOTE | 2022-11-15 10:52 | CA_ITS ---
Transthoracic Echocardiogram Patient (Last, First, Middle): Lainey Floyd, Gender: Female Date of : 1940 Age: 82 Procedure Date: 11/15/2022 Procedure Type: Transthoracic Echocardiogram Location: OP Height: 160.02 cm Weight: 74.84 kg BSA: 1.78 m2 Heart Rate: bpm BP: 145 / 68 mmHg [employer] Underwriter: TO Referring MD: Chandler Cisneros MD Symptoms: I35.0 - Nonrheumatic aortic (valve) stenosis Study Quality: Fair ECG Rhythm: Sinus Conclusions: - The left ventricular systolic function is normal. The calculated ejection fraction is 58% by biplane method. - There is mild to moderate aortic valve stenosis. - There is moderate mitral annular calcification. Findings Left Ventricle Normal left ventricular cavity size. There is normal left ventricular wall thickness. The left ventricular systolic function is normal. The calculated ejection fraction is 58% by biplane method. There is no evidence of regional wall motion abnormalities. Evidence suggests grade I (mild) diastolic dysfunction. Right Ventricle Normal right ventricular cavity size and systolic function. Atria Both atria are normal in size. Aortic Valve There is moderate calcification of the aortic valve. There is mild to moderate aortic valve stenosis. The mean gradient is 14 mmHg. The aortic valve area is 1.23 cm2. There is no aortic valve regurgitation. Mitral Valve There is moderate mitral annular calcification. There is trace mitral valve regurgitation. There is no mitral valve stenosis. Pulmonic Valve The pulmonic valve is likely normal. Tricuspid Valve There is mild tricuspid valve regurgitation. There is no evidence of pulmonary hypertension. Great Vessels The asc aorta is normal in size. Venous The inferior vena cava is normal in size and collapses greater than 50% with inspiration. Pericardium/Pleural There is no evidence of pericardial effusion. Prior Study Comparison No significant change compared to prior study dated: 10/14/2021. Measurements 2D Linear Measurements IVSd: 0.94 0.6-0.9/0.6-1.0 cm LVIDd: 4.05 3.9-5.3/4.2-5.9 cm LVIDd Index: 2.28 2.4-3.2/2.2-3.1 cm/m2 LVIDs: 2.94 2.0-3.6 cm LVPWd: 0.81 0.7-1.1 cm LA Diam: 3.20 2.7-3.8/3.0-4.0 cm LAIDs Index: 1.80 1.5-2.3 cm/m2 LV Mass: 134.04 67-162/88-224 g LV Mass Index: 75.30 43-95/49-115 g/m2 LVOT Diam: 1.90 3.0+(-)1.3 cm 2D Systolic Function EF 4C: 56.80 >55% EF 2C: 58.80 >55% EF BiP: 57.50 >55% Mitral Valve MV Pk E: 0.87 MV PK A: 0.82 MV Decel Time: 271.00 E/A: 1.10 E'Lateral: 8.27 E'Medial: 6.74 E/E' Med: 13.00 E/E' Lat: 10.60 PHT: 79.00 MVA PHT: 2.78 Decel [place]: 3.23 Aortic Valve AoV Pk Bunny: 2.61 AoV Mn Bunny: 1.72 AoV VTI: 0.63 AoV Pk Grad: 27.00 Aov Mn Grad: 14.00 ELBERT Cont.VTI: 1.23 LVOT LVOT Pk Bunny: 1.08 LVOT Mn Bunny: 0.76 LVOT VTI: 0.28 LVOT Pk Grad: 5.00 LVOT Mn Grad: 3.00 LVOT Diam: 1.90 LVOT Area: 2.84 Diastolic Function MV Pk E: 0.87 MV Pk A: 0.82 E/A: 1.10 E'Medial: 6.74 E/E' Med: 13.00 E' Laterial: 8.27 E/E' Lat: 10.60 Right Ventricle TAPSE (mm): 28.90 TVS' Bunny: 11.60 Tricuspid Valve TR Pk Bunny: 2.33 TR Pk Grad: 22.00 RA Press: 3.00 RVSP: 25.00 Great Vessels Aorta Sinus of Valsalva: 2.80 2.0-3.5 cm Ao Asc: 2.90 2.1-3.4 cm Updated in Other Vendor System with Status of Final Chandler Cisneros MD electronically signed on 11/15/2022 5:02:09 PM with status of Final
== END ==
LOC: HO.CARD 10:50
PROVIDERS: PCP Nurse Practitioner Adult Health; Visit Provider Internal Medicine
DX: I35.0 Nonrheumatic aortic (valve) stenosis (principal)
CPT/HCPCS: 93306

== ENCOUNTER → 2022-12-05 12:20 | Outpatient (BNVA) | payer MEDICARE, SELFPAY | PROVIDERS: PCP Nurse Practitioner Adult Health; Referring Provider Nurse Practitioner Adult Health; Visit Provider Internal Medicine | DX: I35.0 Nonrheumatic aortic (valve) stenosis (principal); I48.0 Paroxysmal atrial fibrillation; I25.10 Atherosclerotic heart disease of native coronary artery without angina pectoris; I10 Essential (primary) hypertension; Z78.9 Other specified health status | CPT/HCPCS: 93005; 99212 ==

== ENCOUNTER → 2023-01-23 14:20 | Outpatient (BNVA) | payer MEDICARE, SELFPAY | PROVIDERS: PCP Nurse Practitioner Adult Health; Visit Provider Hospitalist | DX: J44.9 Chronic obstructive pulmonary disease, unspecified (principal); R93.89 Abnormal findings on diagnostic imaging of other specified body structures | CPT/HCPCS: 99212 ==

== ENCOUNTER 2023-02-22 13:31 | Outpatient (REF) | payer MEDICARE, SELFPAY ==
--- NOTE | ~2023-02-22 | XR_ITS ---
EXAMINATION: XR CHEST CLINICAL INFORMATION: Cough COMPARISON: 06/11/2020 TECHNIQUE: 2 views of the chest were obtained. FINDINGS: Stable biapical pleural and parenchymal changes. No new findings. No significant abnormality is noted involving the heart, lungs, mediastinum, bony thorax or soft tissues. XR/XR chest 2V IMPRESSION: No active chest disease.
== END 2023-02-22 13:32 | disposition home or self-care (01) ==
LOC: HO.XRAY 13:31
PROVIDERS: PCP Nurse Practitioner Adult Health; Visit Provider Hospitalist
DX: R05.9 Cough, unspecified (principal); R93.89 Abnormal findings on diagnostic imaging of other specified body structures
CPT/HCPCS: 71046

== ENCOUNTER 2023-06-15 12:39 | Outpatient (AMB) | payer MEDICARE, SELFPAY ==
[2023-06-15 12:40] VITALS: BP 158/80; PULSE 54; BMI 30.8
--- NOTE | 2023-06-15 12:40 | A.OFFVIS_ITS ---
Intake Vital Signs 06/15/23 12:40 Height 5 ft 3 in Weight 174 lb 2.643 oz BMI 30.8 BP 158/80 H Blood Pressure Location Lt brachial Position Sitting Pulse 54 Intake Visit Reasons: 6 month follow up Intake Note: 6 month follow up Conference Services Coordinator Required: No Accompanied by: Self / Same As Patient Allergies atorvastatin Adverse Reaction (Severe, Verified 06/15/23 12:46) muscle aches simvastatin Adverse Reaction (Severe, Verified 06/15/23 12:46) Muscles Aches Medication List - Last Reconciled 06/15/23 by Chandler Cisneros MD albuterol sulfate 90 mcg/actuation inhalation azelastine 2 sprays intranasal BID 30 days cholecalciferol (vitamin D3) 25 mcg PO DAILY coenzyme Q10 (Ultra CoQ10) 75 mg PO DAILY flecainide 50 mg PO BID fluticasone propion-salmeterol 250-50 mcg/dose 1 ea PO BID metoprolol succinate ER 12.5 mg (1/2 x 25 mg) PO DAILY 90 days nebulizers As directed rivaroxaban (Xarelto) 20 mg PO DAILY rosuvastatin 10 mg PO BEDTIME sodium chloride 7% 4 mL inhalation BID 30 days turmeric mg PO valsartan 160 mg PO DAILY HPI HPI Comments History of Present Illness Details Lainey returns for follow-up regarding atrial fibrillation, aortic stenosis, coronary artery disease. Overall, generally doing well. Chronic leg swelling, probably dependent edema. Otherwise, aches and pains as she has had before. Nothing specifically from cardiac. [facility] Medical History Abnormal chest x-ray Statin intolerance Essential hypertension Atherosclerotic cardiovascular disease PAF (paroxysmal atrial fibrillation) Non-rheumatic aortic stenosis Murmur, heart GERD (gastroesophageal reflux disease) Cough Asthma-COPD overlap syndrome Bronchitis Surgical History (Updated 12/05/22 @ 12:37 by Chantale Lui) History of left knee replacement History of carpal tunnel release Family History (Updated 12/05/22 @ 12:38 by Chantale Lui) Mother Breast cancer Father Heart attack Other Allergies Social History Patient Tobacco Use Status: Never used Tobacco Review of Systems Const Denies weakness ENT Denies dizziness Card Denies chest pain, Denies chest pain with activity, Denies syncope, Denies rapid heart rate, Denies pedal edema, Denies edema, Denies leg edema, Denies lightheadedness, Denies palpitations, Denies dyspnea, Denies dyspnea on exertion and Denies orthopnea Resp Denies cough, Denies dyspnea and Denies dyspnea on exertion GI Denies hematochezia and Denies change in stool character Musc Denies abnormal gait, Denies muscle cramps, Denies muscle weakness, Denies numbness, Denies radiating pain into limb and Denies tingling Neuro Denies abnormal gait, Denies dizziness, Denies syncope, Denies numbness, Denies tingling and Denies weakness Endo Denies palpitations Physical Exam Vital Signs: Last Vital Signs Pulse 54 06/15/23 12:40 BP 158/80 H 06/15/23 12:40 BMI result Body Mass Index 30.8 Const General: comfortable and no acute distress Orientation/consciousness: patient oriented x3 HEENT Other: Unremarkable Head: Yes normal to inspection Neck Neck: Yes normal visual inspection Chest Chest palpation & inspection: normal inspection of the chest Resp Auscultation: clear to auscultation bilaterally Cardio Palpation: normal PMI Heart sounds: S1 normal heart sound present, S2 normal heart sound present, no gallops, Murmur heart sound present systolic III/ and at the right sternal border and no rubs GI Palpation (GI): Soft to palpation Back/Spine/Pelvis Other: unremarkable Skin Other: Bruising related to anticoagulation and skin fragility. General skin exam: no rashes or lesions noted Neuro General: patient oriented x3 Extrem Other: 1+ L >R LE swelling. General: Yes normal to inspection Psych Mental Status: mental status grossly normal Office Procedures EKG Details: EKG with sinus bradycardia at 54/Min; no significant ST-T changes and otherwise unremarkable[place] [address][id number], Complete Assessment & Plan Assessment & Plan (1) Non-rheumatic aortic stenosis: Code(s): I35.0 - Nonrheumatic aortic (valve) stenosis Plan: Most recent echocardiogram suggestive of [id number] aortic stenosis. Can be monitored periodically. (2) PAF (paroxysmal atrial fibrillation): Code(s): I48.0 - Paroxysmal atrial fibrillation Plan: Continue flecainide. Continue beta-blockers. Continue anticoagulation. Check labs. (3) Atherosclerotic cardiovascular disease: Code(s): I25.10 - Atherosclerotic heart disease of [place] coronary artery without angina pectoris Plan: Coronary CTA - mild nonobstructive disease in the left main and moderate disease in the proximal circumflex. Continue statins. Most recent LDL 75mg/dl. Prior value 157 mg/dL. (4) Essential hypertension: Code(s): I10 - Essential (primary) hypertension Plan: Blood pressure on the higher side today. She is on valsartan. She has been on amlodipine as well as lisinopril in the past but not taking anymore due to intolerance. If blood pressure stays like this, probably go up on the valsartan. (5) Statin intolerance: Code(s): Z78.9 - Other specified health status Plan: Symptoms more likely from arthritic issues than statin tolerance. On a small dose of statin. No changes. Orders: Orders CA echo transthoracic complete 6 Months I35.0 - Nonrheumatic aortic (valve) stenosis Basic Metabolic Panel Today I48.0 - Paroxysmal atrial fibrillation B Type Natriuretic Peptide Today I48.0 - Paroxysmal atrial fibrillation, I50.9 - Heart failure, unspecified Coding Level of Care Code Est Pt Level 4 (85500) Diagnoses Non-rheumatic aortic stenosis I35.0 PAF (paroxysmal atrial fibrillation) I48.0 Atherosclerotic cardiovascular disease I25.10 Essential hypertension I10 Statin intolerance Z78.9 CPT Codes EKG - CPT: 75972-[id number], Complete ([id number])
== END 2023-06-15 13:07 | disposition home or self-care (01) ==
PROVIDERS: PCP Nurse Practitioner Adult Health; Visit Provider Internal Medicine
DX: I35.0 Nonrheumatic aortic (valve) stenosis (principal); I48.0 Paroxysmal atrial fibrillation; I25.10 Atherosclerotic heart disease of native coronary artery without angina pectoris; I10 Essential (primary) hypertension; Z78.9 Other specified health status
CPT/HCPCS: 93010; 99214

== ENCOUNTER 2023-06-15 12:39 | Outpatient (REF) | payer MEDICARE, SELFPAY ==
[2023-06-15 14:33] LABS: Anion Gap 11 (12-20); Blood Urea Nitrogen 19 mg/dL (9-16); Calcium 9.6 mg/dL (8.4-10.2); Carbon Dioxide 27 mmol/L (22-29); Chloride 103 mmol/L (96-108); Estimated Glomerular Filt Rate > 60; Glucose Random 87 mg/dL (60-115); Potassium 4.4 mmol/L (3.3-5.1); Sodium 137 mmol/L (135-145)
[2023-06-15 14:34] LABS: B Type Natriuretic Peptide 147 pg/mL (<100)
== END 2023-06-15 12:40 | disposition home or self-care (01) ==
LOC: HO.LAB 12:39
PROVIDERS: PCP Nurse Practitioner Adult Health; Visit Provider Internal Medicine
DX: I48.0 Paroxysmal atrial fibrillation (principal); I11.0 Hypertensive heart disease with heart failure; I50.9 Heart failure, unspecified; I25.10 Atherosclerotic heart disease of native coronary artery without angina pectoris; I35.0 Nonrheumatic aortic (valve) stenosis; Z78.9 Other specified health status; Z79.899 Other long term (current) drug therapy
CPT/HCPCS: 36415; 80048; 83880; 93005; 99212

== ENCOUNTER 2023-06-22 13:20 | Outpatient (REF) | payer MEDICARE, SELFPAY ==
--- NOTE | ~2023-06-22 | US_ITS ---
EXAMINATION: Noninvasive assessment of the bilateral lower extremities with ARTERIAL DUPLEX and ANKLE BRACHIAL INDICES (ABIs). CLINICAL INFORMATION: Peripheral vascular disease. History of left popliteal artery angioplasty TECHNIQUE: Duplex Doppler techniques with waveform analysis and measurement of velocities in the bilateral common femoral, profunda femoris, superficial femoral, popliteal and tibial arteries were performed. Additionally, ankle pulse volume recordings, ankle pressure measurements and ankle brachial indices were obtained/attempted of the lower extremity arterial system bilaterally. The study was performed only at rest. COMPARISON: 07/26/2022 FINDINGS: DIRECT DUPLEX DOPPLER FINDINGS: RIGHT LEG: Common femoral artery: 114 cm/s, phasicity: Triphasic. Mild calcified plaque Profunda femoris artery: 111 cm/s, phasicity: Biphasic Superficial femoral artery (proximal): 117 cm/s, phasicity: Triphasic Superficial femoral artery (mid): 102 cm/s, phasicity: Triphasic. Mild calcified plaque Superficial femoral artery (distal): 95.8 cm/s, phasicity: Triphasic Popliteal artery: 113 cm/s, phasicity: Triphasic. Mild calcified plaque Posterior tibial artery: 48.5 cm/s, phasicity: Monophasic Anterior tibial artery: 41.3 cm/s, phasicity: Monophasic Dorsalis pedis artery: Not visualized Note is made of a anechoic cyst along the dorsum of the foot measuring 0.7 x 0.5 x 0.7 cm. LEFT LEG: Common femoral artery: 141 cm/s, phasicity: Triphasic. Mild calcified plaque Profunda femoris artery: 141 cm/s, phasicity: Triphasic Superficial femoral artery (proximal): 108 cm/s, phasicity: Triphasic Superficial femoral artery (mid): 119 cm/s, phasicity: Triphasic Superficial femoral artery (distal): 143 cm/s, phasicity: Monophasic Popliteal artery: 88.4 cm/s, phasicity: Triphasic Posterior tibial artery: 28.0 cm/s, phasicity: Monophasic Anterior tibial artery: 33.8 cm/s, phasicity: Monophasic Dorsalis pedis artery: Not visualized ANKLE-BRACHIAL INDEX: The patient was only able to tolerate pressure measurements at the ankles and therefore ankle-brachial index was not obtained. ANKLE PRESSURES: Patient was unable to tolerate pressure measurements ANKLE PVR WAVEFORMS: Right: Abnormal Left: Abnormal US/US arterial duplex LE BI IMPRESSION: Right leg: Dampened pulse volume waveform. Duplex Doppler demonstrates monophasic waveforms in the below-knee runoff vessels consistent with small vessel disease. Scattered calcified plaque in the femoral and popliteal arteries without significant stenosis Left leg:Dampened pulse volume waveform. Duplex Doppler demonstrates monophasic waveforms in the below-knee runoff vessels consistent with small vessel disease. Scattered calcified plaque in the femoral and popliteal arteries without significant stenosis
== END 2023-06-22 13:21 | disposition home or self-care (01) ==
LOC: HO.US 13:20
PROVIDERS: PCP Nurse Practitioner Adult Health; Visit Provider Surgery Vascular Surgery
DX: I70.213 Atherosclerosis of native arteries of extremities with intermittent claudication, bilateral legs (principal)
CPT/HCPCS: 93925

== ENCOUNTER 2023-07-04 13:07 | Outpatient (AMB) | payer MEDICARE, SELFPAY ==
--- NOTE | 2023-07-04 13:23 | A.OFFVIS_ITS ---
Intake Vital Signs 07/04/23 13:26 Height 5 ft 3 in Weight 174 lb BMI 30.8 Intake Visit Reasons: 1 yr follow up Art US Intake Note: 1 yr follow up Arterial US 06/22/2023. Pt states that she has bilateral LE weakness but the distance she walks varies by the day. Sometimes its her back or knee that bothers her. Feet are always cold and white. Pt has discoloration on bilateral LE and swelling is worse on the left leg. Hx of Left Popliteal plasty 09/09/2020 Accompanied by: Self / Same As Patient Allergies atorvastatin Adverse Reaction (Severe, Verified 07/04/23 13:29) muscle aches simvastatin Adverse Reaction (Severe, Verified 07/04/23 13:29) Muscles Aches HPI 1 yr follow up Art US HPI Details Very pleasant 83-year-old female with prior history endovascular intervention in August of 2020. She reports that she has been doing fairly well but more recently has more of a back issue. After her knee replacement she reports that she has to often lean forward while walking. She root reports that she is able to go about a block. She now presents for routine surveillance follow-up with noninvasive arterial testing [facility] Medical History Abnormal chest x-ray Statin intolerance Essential hypertension Atherosclerotic cardiovascular disease PAF (paroxysmal atrial fibrillation) Non-rheumatic aortic stenosis Murmur, heart GERD (gastroesophageal reflux disease) Cough Asthma-COPD overlap syndrome Bronchitis Surgical History History of left knee replacement History of carpal tunnel release Family History Mother Breast cancer Father Heart attack Other Allergies Patient Tobacco Use Status: Never used Tobacco Review of Systems Const All systems reviewed & are unremarkable except as noted in HPI and below Reports no additional complaints ENT Reports Normal hearing present Card Denies chest pain, Denies chest pain at rest, Denies chest pain with activity and Denies pedal edema Resp Denies cough GI Denies abdominal pain Musc Denies abnormal gait, Denies muscle cramps and Denies radiating pain into limb Skin/Breast Denies skin ulcer and Denies wounds Neuro Reports Normal hearing present and Denies abnormal gait Psych Reports no additional complaints Physical Exam Vital Signs: BMI result Body Mass Index 30.8 Const General: cooperative, healthy appearing and comfortable Orientation/consciousness: oriented to person, oriented to place and oriented to time HEENT Head: Yes normal to inspection Neck Neck: Yes normal visual inspection Carotids: no bruits Chest Chest palpation & inspection: normal inspection of the chest Resp Effort & Inspection: normal respiratory effort and able to speak in complete sentences Auscultation: clear to auscultation bilaterally, no crackles, no rales, no rhonchi and no wheezes Cardio Other: Bilateral DP signals Rate: regular rate Rhythm: regular rhythm Heart sounds: S1 normal heart sound present and S2 normal heart sound present Bruits: no carotid bruits Peripheral pulses: Peripheral pulses 2+ throughout GI Inspection: Yes normal to inspection Skin Wounds: no wounds Hair: normal Neuro General: oriented to person, oriented to place and oriented to time Cranial nerves: Yes CN's II-XII intact bilaterally and Yes Normal hearing present Cognition (Neuro): normal cognition Motor exam (neuro): 5/5 motor strength present throughout Extrem Other: venous exam: No significant superficial varicosities or spider telangiectasias, minimal edema General: No clubbing, No cyanosis and No edema Psych Appearance: grossly normal Mental Status: mental status grossly normal Speech and movement: Normal speech and movement present Results Reviewed Results Reviewed: Arterial testing demonstrates below-knee monophasic flow. Small-vessel disease but appears to be reasonable flow throughout. Unfortunately CARLOS was not tolerated. Testing dated 06/21/2023 written report and images were reviewed. Assessment & Plan Assessment & Plan (1) PAD (peripheral artery disease): Comment: 09/09/2020 - left popliteal plasty. Code(s): I73.9 - Peripheral vascular disease, unspecified Plan: In short patient has stable claudication. I did review the pathophysiology of peripheral vascular disease with the patient. In addition we did discuss routine conservative measures including a healthy diet and the importance of exercise and ambulation. We did discuss risk factor modification. The patient will continue to to follow-up with surveillance follow-up in approximately 1 year. Thank you for allowing us to participate in this patient's care. If there are any questions or concerns please do not hesitate to contact us. Orders: Orders US arterial duplex LE BI 364 Days I73.9 - Peripheral vascular disease, unspecified Coding Level of Care Code Est Pt Level 4 (87904) Diagnoses PAD (peripheral artery disease) I73.9
[2023-07-04 13:26] VITALS: BMI 30.8
== END 2023-07-04 13:45 | disposition home or self-care (01) ==
PROVIDERS: PCP Nurse Practitioner Adult Health; Visit Provider Surgery Vascular Surgery
DX: I73.9 Peripheral vascular disease, unspecified (principal)
CPT/HCPCS: 99213

== ENCOUNTER → 2023-07-04 13:07 | Outpatient (BNVA) | payer MEDICARE, SELFPAY | PROVIDERS: PCP Nurse Practitioner Adult Health; Visit Provider Surgery Vascular Surgery | DX: I73.9 Peripheral vascular disease, unspecified (principal) | CPT/HCPCS: 99212 ==

== ENCOUNTER 2023-07-26 11:21 | Outpatient (AMB) | payer MEDICARE, SELFPAY ==
[2023-07-26 11:27] VITALS: PULSE 60; O2SAT 94; BMI 30.1
--- NOTE | 2023-07-26 11:27 | A.OFFVIS_ITS ---
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 apparently back in October her respiratory symptoms got much worse with productive cough and green sputum. She was having hard time breathing with shortness of breath and likely wheezing. She was initially evaluated and was she was given a Z-Joshua. And then subsequent after that she was given some prednisone. She was asked to call back if she had any difficulties. Months past and she has not called back. However, her breathing has gotten where were then productive sputum yellowish in color. Sometimes it does gag her with coughing. on further questioning the patient usually gets worse in October. She does have a living space in the basement that this been a good amount of time in. No obvious mold. No birds or animals. 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 Nobody smokes in the house. We did look at her last chest x-ray from August 2011 that she had for her cardiac issues. The time of that that she had some tram tracking suggesting some bronchiectatic changes in the right base. She has not had a x-ray for does prolonged bronchitis. On exam she does have some coarse BS, end exhalation wheezing and bronchospastic cough. 06/24/2020 the patient is here for sumi christine follow-up visit. Overall she is feeling a lot better. She has completed 2 weeks of doxycycline and completed the prednisone. Her cough is significantly improved and she is less congested. She has not received the nebulizer and or the flutter valve. We did call [facility] in apparently they have been trying to get in touch with her. She was given the number for her to call so she can receive the nebulizer. In the meantime he did have a Acapella valve in the office and did teach how to use it. 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 Her sputum culture was negative for any organisms. Her chest x-ray did demonstrate a slight small nodular opacity. I did recommend that we follow up with a CAT scan the put the patient was reluctant. Therefore we decided to follow-up with a repeat x-ray in the next 2 months. If the area still present which should definitely undergo a CT scan of the chest at that time. In the meantime I did emphasize the patient if she develops any worsening symptoms or any other concerning symptoms which she just go ahead and order the CT scan. The patient has completed the doxycycline. Impart to doxycycline was to treat her underlying bronchitis, but, also to treat potential Lyme disease she was exposed to tick bite. I have ever did not check her for any Lyme exposure. Otherwise the patient is without any other complaints. 09/24/2021 the patient is here for sick visit. For the last week she has been noticing worsening cough. Moderate severity. The cough has been congested and productive in nature. She is bringing up whitish and yellowish phlegm. In addition to that she had medication changes. Recently her Finesse inhibitor was increased to 40 mg. Explained to her that also can worsen cough. Although she states that her cough is different is more congested. Indeed on examination she does have rhonchi and wheezing. Therefore we will treated for lower respiratory infection resulting bronchospasms at this time. If however cough persists is not on reasonable to switch her Finesse inhibitor to an ARB. 12/07/2021 the patient is here for a pulmonary follow-up visit. Overall she is feeling a little better from the cough. Is not as severe. She is off the FINESSE- inhibitor. Although she still has a congested cough specially when she lays flat. Dsbz-gx-vjgwqmin severity. Typically worse at nighttime. On examination her lungs sound better. Does significant wheezing or rhonchi. I do believe she her symptoms may be precipitated by postnasal drip or upper airway cough syndrome. She is not getting any therapies for her nose. She does have known allergies. She is concerned about taking additional medications. In the meantime she was taken off the FINESSE-inhibitor placed on amlodipine and resulting lower extremity edema. Therefore she cannot tolerated. Now she is on hydralazine she is concerned about taking it. Today her blood pressure at least her diastolic pressures were in the 60s. Therefore I did request that she call her primary care doctor or procedure writer in order to make sure that her medications and her concerns are discussed. Will go ahead and start her on nasal therapies to try to improve and upper airway cough syndrome. Patient would like to avoid pill so therefore will use a couple different nasal sprays. She can also pick remover some rssk-gmq-xulaexd saline and perform nasal rinsing at nighttime to minimize the drippage and congestion when she is laying supine. 06/17/2022 the patient is here for a pulmonary follow-up visit. Overall the patient is doing well from a respiratory status. She has been using her respiratory therapy with good effect. She also continues with nasal therapy. She still complains of nasal congestion. She does not have any recent laboratories to review. Her last chest x-ray was from September 2021 demonstrating no acute disease. She continues with her hypertonic saline with good effect. 01/23/2023 the patient is here for pulmon lorrie follow-up visit. She has been complaining of a cough that is nonproductive in nature. Now for the last few months. Seems to be getting slightly better. The phlegm is yellowish in color. Initially she had a hard time sleeping because of the cough. This complained of sinusitis. The patient did try the nasal sprays but the nasal sprays cause a bleeding from the nose. Therefore she stopped them. She also has been using her inhalers with partial improvement of the symptoms. No significant wheezing on exam although she does have a productive cough. Will go and start her on a course of doxycycline to treat her for a lower respiratory infection. The patient also has been complaining of increased fatigue and daytime drowsiness. I did recommend she get a chest x-ray in 1-2 weeks. Will follow up with the results 07/26/2023 the patient is here for a pul monary follow-up visit. She is still having hard time with her breathing and her cough. Apparently it got worse again. Now with yellowish greenish phlegm. Very tenacious difficult to expectorate. She goes to coughing spells moderate severity. She has concerned that she continues to have this chronic bronchitis issue. Seems that she has a baseline chronic bronchitis but this is an exacerbation at this time. No significant wheezing although she does have rhonchi in a very bronchospastic cough at this time. We were able to get a sputum specimen for culture. The patient was start low-dose prednisone and doxycycline. She does take flecainide so she does have limited options when it comes to antibiotics. She also was prescribed Augmentin over the fall and she did develop significant diarrhea and she had to stop it. Her last chest x-ray back over the summer was okay. If she has any worsening symptoms and does not respond to the therapy she will get a repeat x-ray. If the x-ray is not helpful then consider additional imaging studies suggest a CT scan of the chest and also and or bronchoscopy. [facility] Medical History Abnormal chest x-ray Statin intolerance Essential hypertension Atherosclerotic cardiovascular disease PAF (paroxysmal atrial fibrillation) Non-rheumatic aortic stenosis Murmur, heart GERD (gastroesophageal reflux disease) Cough Asthma-COPD overlap syndrome Bronchitis Surgical History History of left knee replacement History of carpal tunnel release Family History Mother Breast cancer Father Heart attack Other Allergies Social History Comment: stiffness Patient Tobacco Use Status: Never used Tobacco Review of Systems Const Denies chills, Denies fatigue, Denies fever(s), Denies frequent falls, Denies weakness, Denies weight gain and Denies weight loss ENT Denies dizziness and Reports post nasal drip Card Denies chest pain, Denies leg edema, Denies lightheadedness, Denies palpitations, Denies dyspnea, Denies dyspnea on exertion, Denies orthopnea and Denies other (Loss of consciousness) Resp Reports change in phlegm color, Reports chest congestion, Reports cough, Denies dyspnea and Denies dyspnea on exertion GI Denies hematochezia and Denies change in bowel habits Musc Denies abnormal gait, Denies muscle weakness, Denies numbness, Denies radiating pain into limb and Denies tingling Neuro Denies abnormal gait, Denies dizziness, Denies frequent falls, Denies numbness, Denies tingling and Denies weakness Endo Denies fatigue and Denies palpitations Physical Exam Vital Signs: Last Vital Signs Pulse 60 07/26/23 11:27 Pulse Ox 94 07/26/23 11:27 Oxygen Delivery Method Room Air 07/26/23 11:27 BMI result Body Mass Index 30.1 Const General: alert Neck Neck: Yes normal visual inspection, Yes full ROM and Yes no lymphadenopathy Chest Chest palpation & inspection: normal inspection of the chest Resp Auscultation: no rhonchi, no wheezes and diminished lung sounds Cardio Rate: regular rate Rhythm: regular rhythm Heart sounds: S1 normal heart sound present and S2 normal heart sound present GI Palpation (GI): Soft to palpation and nontender Auscultation: normal bowel sounds Skin General skin exam: rashes and/or lesions noted Assessment & Plan Assessment & Plan (1) Bronchitis: Code(s): J40 - Bronchitis, not specified as acute or chronic (2) Asthma-COPD overlap syndrome: Code(s): J44.9 - Chronic obstructive pulmonary disease, unspecified (3) Cough: Code(s): R05 - Cough Qualifiers: Cough type: chronic Qualified Code(s): R05.3 - Chronic cough (4) Abnormal chest x-ray: Code(s): R93.89 - Abnormal findings on diagnostic imaging of other specified body structures Plan Start Doxycycline Start Prednisone taper sputum culture CXR if no better continue Flonase continue Astelin nasal spray nasal rinsing with saline Continue Advair ARELIS ass needed F/U 6-12 months Orders: Orders Sputum Cult + Gram stain Today J40 - Bronchitis, not specified as acute or chronic XR chest 2V Today J40 - Bronchitis, not specified as acute or chronic Medications: New doxycycline monohydrate 100 mg PO BID 14 days 28 tabs 0RF prednisone PO daily; Take 2 tablets daily x 5 days, then 1 tab daily x 5 days 10 days 15 tabs 0RF Coding Level of Care Code Est Pt Level 4 (36190) Diagnoses Bronchitis J40 Asthma-COPD overlap syndrome J44.9 Chronic cough R05.3 Cough type: chronic Abnormal chest x-ray R93.89 Time Spent (min) 17
== END 2023-07-26 11:54 | disposition home or self-care (01) ==
PROVIDERS: PCP Nurse Practitioner Adult Health; Visit Provider Hospitalist
DX: J40 Bronchitis, not specified as acute or chronic (principal); J44.9 Chronic obstructive pulmonary disease, unspecified; R05.3 Chronic cough; R93.89 Abnormal findings on diagnostic imaging of other specified body structures
CPT/HCPCS: 99214

== ENCOUNTER 2023-07-26 11:21 | Outpatient (REF) | payer MEDICARE, SELFPAY | END 2023-07-26 11:22 | disposition home or self-care (01) | LOC: CF 11:21 | PROVIDERS: PCP Nurse Practitioner Adult Health; Visit Provider Hospitalist | DX: J40 Bronchitis, not specified as acute or chronic (principal); R93.89 Abnormal findings on diagnostic imaging of other specified body structures; R05.3 Chronic cough | CPT/HCPCS: 87070; 87077; 87205; 99212 ==

== ENCOUNTER 2023-09-27 11:25 | Outpatient (AMB) | payer MEDICARE, SELFPAY ==
--- NOTE | 2023-09-27 11:42 | A.OFFVIS_ITS ---
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 apparently back in October her respiratory symptoms got much worse with productive cough and green sputum. She was having hard time breathing with shortness of breath and likely wheezing. She was initially evaluated and was she was given a Z-Joshua. And then subsequent after that she was given some prednisone. She was asked to call back if she had any difficulties. Months past and she has not called back. However, her breathing has gotten where were then productive sputum yellowish in color. Sometimes it does gag her with coughing. on further questioning the patient usually gets worse in October. She does have a living space in the basement that this been a good amount of time in. No obvious mold. No birds or animals. 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 Nobody smokes in the house. We did look at her last chest x-ray from August 2011 that she had for her cardiac issues. The time of that that she had some tram tracking suggesting some bronchiectatic changes in the right base. She has not had a x-ray for does prolonged bronchitis. On exam she does have some coarse BS, end exhalation wheezing and bronchospastic cough. 06/24/2020 the patient is here for sumi christine follow-up visit. Overall she is feeling a lot better. She has completed 2 weeks of doxycycline and completed the prednisone. Her cough is significantly improved and she is less congested. She has not received the nebulizer and or the flutter valve. We did call Annal[facility] in apparently they have been trying to get in touch with her. She was given the number for her to call so she can receive the nebulizer. In the meantime he did have a Acapella valve in the office and did teach how to use it. 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 Her sputum culture was negative for any organisms. Her chest x-ray did demonstrate a slight small nodular opacity. I did recommend that we follow up with a CAT scan the put the patient was reluctant. Therefore we decided to follow-up with a repeat x-ray in the next 2 months. If the area still present which should definitely undergo a CT scan of the chest at that time. In the meantime I did emphasize the patient if she develops any worsening symptoms or any other concerning symptoms which she just go ahead and order the CT scan. The patient has completed the doxycycline. Impart to doxycycline was to treat her underlying bronchitis, but, also to treat potential Lyme disease she was exposed to tick bite. I have ever did not check her for any Lyme exposure. Otherwise the patient is without any other complaints. 09/24/2021 the patient is here for sick visit. For the last week she has been noticing worsening cough. Moderate severity. The cough has been congested and productive in nature. She is bringing up whitish and yellowish phlegm. In addition to that she had medication changes. Recently her Finesse inhibitor was increased to 40 mg. Explained to her that also can worsen cough. Although she states that her cough is different is more congested. Indeed on examination she does have rhonchi and wheezing. Therefore we will treated for lower respiratory infection resulting bronchospasms at this time. If however cough persists is not on reasonable to switch her Finesse inhibitor to an ARB. 12/07/2021 the patient is here for a pulmonary follow-up visit. Overall she is feeling a little better from the cough. Is not as severe. She is off the FINESSE- inhibitor. Although she still has a congested cough specially when she lays flat. Gzau-hw-mthyioif severity. Typically worse at nighttime. On examination her lungs sound better. Does significant wheezing or rhonchi. I do believe she her symptoms may be precipitated by postnasal drip or upper airway cough syndrome. She is not getting any therapies for her nose. She does have known allergies. She is concerned about taking additional medications. In the meantime she was taken off the FINESSE-inhibitor placed on amlodipine and resulting lower extremity edema. Therefore she cannot tolerated. Now she is on hydralazine she is concerned about taking it. Today her blood pressure at least her diastolic pressures were in the 60s. Therefore I did request that she call her primary care doctor or box builder in order to make sure that her medications and her concerns are discussed. Will go ahead and start her on nasal therapies to try to improve and upper airway cough syndrome. Patient would like to avoid pill so therefore will use a couple different nasal sprays. She can also cigar packer and picker some taem-kls-fbhqpsm saline and perform nasal rinsing at nighttime to minimize the drippage and congestion when she is laying supine. 06/17/2022 the patient is here for a pulmonary follow-up visit. Overall the patient is doing well from a respiratory status. She has been using her respiratory therapy with good effect. She also continues with nasal therapy. She still complains of nasal congestion. She does not have any recent laboratories to review. Her last chest x-ray was from September 2021 demonstrating no acute disease. She continues with her hypertonic saline with good effect. 01/23/2023 the patient is here for pulmon lorrie follow-up visit. She has been complaining of a cough that is nonproductive in nature. Now for the last few months. Seems to be getting slightly better. The phlegm is yellowish in color. Initially she had a hard time sleeping because of the cough. This complained of sinusitis. The patient did try the nasal sprays but the nasal sprays cause a bleeding from the nose. Therefore she stopped them. She also has been using her inhalers with partial improvement of the symptoms. No significant wheezing on exam although she does have a productive cough. Will go and start her on a course of doxycycline to treat her for a lower respiratory infection. The patient also has been complaining of increased fatigue and daytime drowsiness. I did recommend she get a chest x-ray in 1-2 weeks. Will follow up with the results 07/26/2023 the patient is here for a pul monary follow-up visit. She is still having hard time with her breathing and her cough. Apparently it got worse again. Now with yellowish greenish phlegm. Very tenacious difficult to expectorate. She goes to coughing spells moderate severity. She has concerned that she continues to have this chronic bronchitis issue. Seems that she has a baseline chronic bronchitis but this is an exacerbation at this time. No significant wheezing although she does have rhonchi in a very bronchospastic cough at this time. We were able to get a sputum specimen for culture. The patient was start low-dose prednisone and doxycycline. She does take flecainide so she does have limited options when it comes to antibiotics. She also was prescribed Augmentin over the fall and she did develop significant diarrhea and she had to stop it. Her last chest x-ray back over the summer was okay. If she has any worsening symptoms and does not respond to the therapy she will get a repeat x-ray. If the x-ray is not helpful then consider additional imaging studies suggest a CT scan of the chest and also and or bronchoscopy. 09/27/2023 the patient is here for a pulm onary follow-up visit. The patient overall has been feeling a little better. She still coughing the cough is still productive in nature. Although significantly better than before. She has been using her inhalers although her adverse no longer available she is taking the generic that she is concerned because is very expensive. We did talk about the GoodRx card and AirDuo and she can get that for better walker and I did give her a script for that. In the meantime for chronic bronchitis she did have a culture for strep pneumo and therefore we did vaccinated for that with the Prevnar 20 vaccine today. She was also treated with Augmentin. Therefore, will go ahead and request she start Daliresp to treat her chronic bronchitis with the hope that there was decrease the chest congestion. If she continues to be congested then we should send sputum to make sure that we completely eradicated the strep pneumo. Her chest x-ray was read as clear back over the summer 2022. If her symptoms persist she will come back and get another x-ray. Now the option to get a CT scan of chest and or a bronchoscopy for both diagnostic and therapeutic interventions. [facility] Medical History Abnormal chest x-ray Statin intolerance Essential hypertension Atherosclerotic cardiovascular disease PAF (paroxysmal atrial fibrillation) Non-rheumatic aortic stenosis Murmur, heart GERD (gastroesophageal reflux disease) Cough Asthma-COPD overlap syndrome Bronchitis Surgical History History of left knee replacement History of carpal tunnel release Family History Mother Breast cancer Father Heart attack Other Allergies Social History Comment: stiffness Patient Tobacco Use Status: Never used Tobacco Review of Systems Const Denies chills, Denies fatigue, Denies fever(s), Denies frequent falls, Denies weakness, Denies weight gain and Denies weight loss ENT Denies dizziness and Reports post nasal drip Card Denies chest pain, Denies leg edema, Denies lightheadedness, Denies palpitations, Denies dyspnea, Denies dyspnea on exertion, Denies orthopnea and Denies other (Loss of consciousness) Resp Reports chest congestion, Reports cough, Denies dyspnea and Denies dyspnea on exertion GI Denies hematochezia and Denies change in bowel habits Musc Denies abnormal gait, Denies muscle weakness, Denies numbness, Denies radiating pain into limb and Denies tingling Neuro Denies abnormal gait, Denies dizziness, Denies frequent falls, Denies numbness, Denies tingling and Denies weakness Endo Denies fatigue and Denies palpitations Physical Exam Vital Signs: Last Vital Signs Pulse 63 09/27/23 11:43 Pulse Ox 94 09/27/23 11:43 Oxygen Delivery Method Room Air 09/27/23 11:43 BMI result Body Mass Index 31.0 Const General: alert Neck Neck: Yes normal visual inspection, Yes full ROM and Yes no lymphadenopathy Chest Chest palpation & inspection: normal inspection of the chest Resp Auscultation: rhonchi, wheezes and diminished lung sounds Cardio Rate: regular rate Rhythm: regular rhythm Heart sounds: S1 normal heart sound present and S2 normal heart sound present GI Palpation (GI): Soft to palpation and nontender Auscultation: normal bowel sounds Skin General skin exam: rashes and/or lesions noted Immunizations pneumoc 20-shaheed conj-dip cr(PF) 0.5 mL IM syringe Performing Provider: Gagan Ratliff MD Performing Location: [facility] [place] [facility] Administered by: Gagan Ratliff MD on 09/27/23 12:53 Dose Route Admin Location Dispensed Lot Number Expiration Date NDC Deputy Chief Sheriff 0.5 mL IM Left Deltoid 0.5 mL [id number] 09/14/24 7964-7537-00 [employer]/dINK VIS Given Date VIS Provided VIS Publication Date 09/27/23 Single Vaccine 21 Eligibility Eligibility Date Funding Source Not [facility] Eligible 09/27/23 Private Assessment & Plan Assessment & Plan (1) Bronchitis: Code(s): J40 - Bronchitis, not specified as acute or chronic (2) Asthma-COPD overlap syndrome: Code(s): J44.9 - Chronic obstructive pulmonary disease, unspecified (3) Cough: Code(s): R05 - Cough Qualifiers: Cough type: chronic Qualified Code(s): R05.3 - Chronic cough (4) Abnormal chest x-ray: Code(s): R93.89 - Abnormal findings on diagnostic imaging of other specified body structures Plan continue Flonase continue Astelin nasal spray nasal rinsing with saline Continue generic advair, will trial Airduo with [employer] card for better pricing start Daliresp consider repeating sputum cx prevnar 20 vaccine today ARELIS ass needed F/U 3-4 months Orders: Orders Pneumococcal 20 Immunization Today Z23 - Encounter for immunization Medications: New roflumilast (Daliresp) 250 mcg PO DAILY 30 days 30 tabs 11RF J44.9 - Chronic obstructive pulmonary disease, unspecified fluticasone propion-salmeterol 232-14 mcg/actuation (AirDuo RespiClick) 1 inh inhalation Q12H 30 days 1 ea 11RF fluticasone propion-salmeterol 232-14 mcg/actuation (AirDuo RespiClick) 1 inh inhalation Q12H 30 days 1 ea 11RF Coding Level of Care Code Est Pt Level 4 (73419) Diagnoses Bronchitis J40 Asthma-COPD overlap syndrome J44.9 Chronic cough R05.3 Cough type: chronic Abnormal chest x-ray R93.89 Time Spent (min) 16
[2023-09-27 11:43] VITALS: PULSE 63; O2SAT 94; BMI 31.0
== END 2023-09-27 12:15 | disposition home or self-care (01) ==
PROVIDERS: PCP Nurse Practitioner Adult Health; Visit Provider Hospitalist
DX: J40 Bronchitis, not specified as acute or chronic (principal); J44.9 Chronic obstructive pulmonary disease, unspecified; R05.3 Chronic cough; R93.89 Abnormal findings on diagnostic imaging of other specified body structures; Z23 Encounter for immunization
CPT/HCPCS: 99214

== ENCOUNTER → 2023-09-27 11:25 | Outpatient (BNVA) | payer MEDICARE, SELFPAY | PROVIDERS: PCP Nurse Practitioner Adult Health; Visit Provider Hospitalist | DX: Z23 Encounter for immunization (principal); R93.89 Abnormal findings on diagnostic imaging of other specified body structures; J40 Bronchitis, not specified as acute or chronic; R05.3 Chronic cough | CPT/HCPCS: 90471; 90677; 99212 ==

== ENCOUNTER 2023-11-07 12:18 | Outpatient (REF) | payer MEDICARE, SELFPAY | END 2023-11-07 12:19 | disposition home or self-care (01) | LOC: HO.MAMMO 12:18 | PROVIDERS: PCP Nurse Practitioner Adult Health; Visit Provider Nurse Practitioner Adult Health | DX: Z12.31 Encounter for screening mammogram for malignant neoplasm of breast (principal) | CPT/HCPCS: 77063; 77067 ==

== ENCOUNTER → 2023-11-07 12:30 | Outpatient (BNV) | payer MEDICARE, SELFPAY | PROVIDERS: PCP Nurse Practitioner Adult Health; Visit Provider Radiology Diagnostic Radiology | DX: Z12.31 Encounter for screening mammogram for malignant neoplasm of breast (principal) | CPT/HCPCS: 77063; 77067 ==

== ENCOUNTER → 2023-12-15 12:55 | Outpatient (REF) | payer MEDICARE, SELFPAY ==
--- NOTE | 2023-12-15 12:59 | CA_ITS ---
Transthoracic Echocardiogram Patient (Last, First, Middle): Lainey Floyd, Gender: Female Date of : 1940 Age: 83 Procedure Date: 12/15/2023 Procedure Type: Transthoracic Echocardiogram Location: OP Height: 160.02 cm Weight: 75.75 kg BSA: 1.79 m2 Heart Rate: bpm BP: 136 / 82 mmHg Newspaper Reporter: TO Referring MD: Chandler Cisneros MD Symptoms: I35.0 - Nonrheumatic aortic (valve) stenosis Study Quality: Fair ECG Rhythm: Sinus Conclusions: - The left ventricular systolic function is normal. The calculated ejection fraction is 63% by biplane method. - There is moderate calcification of the aortic valve. There is mild aortic valve stenosis. - There is severe mitral annular calcification. Findings Left Ventricle Normal left ventricular cavity size. There is normal left ventricular wall thickness. The left ventricular systolic function is normal. The calculated ejection fraction is 63% by biplane method. There is no evidence of regional wall motion abnormalities. There is mild septal asymmetric hypertrophy. Right Ventricle Mildly increased right ventricular cavity size. There is normal right ventricular systolic function. Atria The left atrium is mildly dilated. The right atrium is normal in size. Aortic Valve There is moderate calcification of the aortic valve. There is mild aortic valve stenosis. There is no aortic valve regurgitation. Mitral Valve There is severe mitral annular calcification. There is trace mitral valve regurgitation. There is no mitral valve stenosis. Pulmonic Valve The pulmonic valve is likely normal. Tricuspid Valve There is mild tricuspid valve regurgitation. There is no evidence of pulmonary hypertension. Great Vessels The asc aorta is normal in size. Venous The inferior vena cava is normal in size and collapses greater than 50% with inspiration. Pericardium/Pleural There is no evidence of pericardial effusion. Prior Study Comparison No significant change compared to prior study dated: 11/15/2022. Measurements 2D Linear Measurements IVSd: 1.08 0.6-0.9/0.6-1.0 cm LVIDd: 4.28 3.9-5.3/4.2-5.9 cm LVIDd Index: 2.39 2.4-3.2/2.2-3.1 cm/m2 LVIDs: 2.74 2.0-3.6 cm LVPWd: 0.83 0.7-1.1 cm LA Diam: 3.80 2.7-3.8/3.0-4.0 cm LAIDs Index: 2.12 1.5-2.3 cm/m2 LV Mass: 165.12 67-162/88-224 g LV Mass Index: 92.25 43-95/49-115 g/m2 LVOT Diam: 2.00 3.0+(-)1.3 cm 2D Systolic Function EF 4C: 61.80 >55% EF 2C: 63.40 >55% EF BiP: 62.50 >55% Mitral Valve MV VTI: 0.40 MV Pk Bunny: 1.13 MV Mn Bunny: 0.61 MV Pk Grad: 5.00 MV Mn Grad: 2.00 MVA Continuity: 2.40 Aortic Valve AoV Pk Bunny: 2.75 AoV Mn Bunny: 1.83 AoV VTI: 0.69 AoV Pk Grad: 30.00 Aov Mn Grad: 16.00 ELBERT Cont.VTI: 1.41 LVOT LVOT Pk Bunny: 1.19 LVOT Mn Bunny: 0.86 LVOT VTI: 0.31 LVOT Pk Grad: 6.00 LVOT Mn Grad: 3.00 LVOT Diam: 2.00 LVOT Area: 3.14 Right Ventricle TAPSE (mm): 27.70 TVS' Bunny: 12.00 Tricuspid Valve TR Pk Bunny: 2.49 TR Pk Grad: 25.00 RA Press: 8.00 RVSP: 33.00 Great Vessels Aorta Sinus of Valsalva: 2.99 2.0-3.5 cm Ao Asc: 3.00 2.1-3.4 cm Updated in Other Vendor System with Status of Final Chandler Cisneros MD electronically signed on 12/17/2023 11:36:27 AM with status of Final
== END ==
LOC: HO.CARD 12:55
PROVIDERS: PCP Nurse Practitioner Adult Health; Visit Provider Internal Medicine
DX: I35.0 Nonrheumatic aortic (valve) stenosis (principal)
CPT/HCPCS: 93306

== ENCOUNTER → 2023-12-15 12:59 | Outpatient (BNV) | payer MEDICARE, SELFPAY | PROVIDERS: PCP Nurse Practitioner Adult Health; Visit Provider Internal Medicine | DX: I35.1 Nonrheumatic aortic (valve) insufficiency (principal); I34.81 Nonrheumatic mitral (valve) annulus calcification; I36.1 Nonrheumatic tricuspid (valve) insufficiency | CPT/HCPCS: 93306 ==

== ENCOUNTER → 2024-01-01 13:30 | Outpatient (BNVA) | payer MEDICARE, SELFPAY | PROVIDERS: PCP Nurse Practitioner Adult Health; Visit Provider Internal Medicine ==

== ENCOUNTER 2024-01-31 11:20 | Outpatient (REF) | payer MEDICARE, SELFPAY ==
--- NOTE | ~2024-01-31 | XR_ITS ---
EXAMINATION: XR CHEST CLINICAL INFORMATION: Chronic cough. COMPARISON: February 22, 2023 TECHNIQUE: 2 views of the chest were obtained. FINDINGS: There is no gross pneumothorax. Dextroscoliosis of the thoracic spine with multilevel degenerative changes. Lungs are well inflated. Heart size is normal. Stable biapical pleural thickening. No pleural effusion. No new focal consolidation to suggest pneumonia. XR/XR chest 2V IMPRESSION: No evidence of pneumonia.
== END 2024-01-31 11:21 | disposition home or self-care (01) ==
LOC: HO.XRAY 11:20
PROVIDERS: PCP Nurse Practitioner Adult Health; Visit Provider Hospitalist
DX: R93.89 Abnormal findings on diagnostic imaging of other specified body structures (principal); J40 Bronchitis, not specified as acute or chronic; J44.9 Chronic obstructive pulmonary disease, unspecified; R05.3 Chronic cough
CPT/HCPCS: 71046; 87070; 87077; 87185; 87186; 87205; 99212

== ENCOUNTER 2024-01-31 11:20 | Outpatient (AMB) | payer MEDICARE, SELFPAY ==
[2024-01-31 11:25] VITALS: PULSE 69; O2SAT 99; BMI 30.4
--- NOTE | 2024-01-31 11:25 | A.OFFVIS_ITS ---
Vital Signs 01/31/24 11:25 Height 5 ft 2.5 in Weight 169 lb BMI 30.4 Pulse 69 Pulse Source Pulse Oximeter Pulse Oximetry (%) 99 Oxygen Delivery Method Room Air Intake Visit Reasons: COPD [employer] Member Required: No Allergies atorvastatin Adverse Reaction (Severe, Verified 01/31/24 11:26) muscle aches simvastatin Adverse Reaction (Severe, Verified 01/31/24 11:26) Muscles Aches HPI Comments Details: The patient is a 83-year-old woman with a known history of lifelong asthma. apparently back in October her respiratory symptoms got much worse with productive cough and green sputum. She was having hard time breathing with shortness of breath and likely wheezing. She was initially evaluated and was she was given a Z-Joshua. And then subsequent after that she was given some prednisone. She was asked to call back if she had any difficulties. Months past and she has not called back. However, her breathing has gotten where were then productive sputum yellowish in color. Sometimes it does gag her with coughing. on further questioning the patient usually gets worse in October. She does have a living space in the basement that this been a good amount of time in. No obvious mold. No birds or animals. 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 Nobody smokes in the house. We did look at her last chest x-ray from August 2011 that she had for her cardiac issues. The time of that that she had some tram tracking suggesting some bronchiectatic changes in the right base. She has not had a x-ray for does prolonged bronchitis. On exam she does have some coarse BS, end exhalation wheezing and bronchospastic cough. 06/24/2020 the patient is here for pulmonary follow-up visit. Overall she is feeling a lot better. She has completed 2 weeks of doxycycline and completed the prednisone. Her cough is significantly improved and she is less congested. She has not received the nebulizer and or the flutter valve. We did call An[facility] in apparently they have been trying to get in touch with her. She was given the number for her to call so she can receive the nebulizer. In the meantime he did have a Acapella valve in the office and did teach how to use it. 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 Her sputum culture was negative for any organisms. Her chest x-ray did demonstrate a slight small nodular opacity. I did recommend that we follow up with a CAT scan the put the patient was reluctant. Therefore we decided to follow-up with a repeat x-ray in the next 2 months. If the area still present which should definitely undergo a CT scan of the chest at that time. In the meantime I did emphasize the patient if she develops any worsening symptoms or any other concerning symptoms which she j ust go ahead and order the CT scan. The patient has completed the doxycycline. Impart to doxycycline was to treat her underlying bronchitis, but, also to treat potential Lyme disease she was exposed to tick bite. I have ever did not check her for any Lyme exposure. Otherwise the patient is without any other complaints. 09/24/2021 the patient is here for sick visit. For the last week she has been noticing worsening cough. Moderate severity. The cough has been congested and productive in nature. She is bringing up whitish and yellowish phlegm. In addition to that she had medication changes. Recently her Finesse inhibitor was increased to 40 mg. Explained to her that also can worsen cough. Although she states that her cough is different is more congested. Indeed on examination she does have rhonchi and wheezing. Therefore we will treated for lower respiratory infection resulting bronchospasms at this time. If however cough persists is not on reasonable to switch her Finesse inhibitor to an ARB. 12/07/2021 the patient is here for a pulmonary follow-up visit. Overall she is feeling a little better from the cough. Is not as severe. She is off the FINESSE- inhibitor. Although she still has a congested cough specially when she lays flat. [id number] severity. Typically worse at nighttime. On examination her lungs sound better. Does significant wheezing or rhonchi. I do believe she her symptoms may be precipitated by postnasal drip or upper airway cough syndrome. She is not getting any therapies for her nose. She does have known allergies. She is concerned about taking additional medications. In the meantime she was taken off the FINESSE-inhibitor placed on amlodipine and resulting lower extremity edema. Therefore she cannot tolerated. Now she is on hydrala zine she is concerned about taking it. Today her blood pressure at least her diastolic pressures were in the 60s. Therefore I did request that she call her primary care doctor or firer locomotive crane in order to make sure that her medications and her concerns are discussed. Will go ahead and start her on nasal therapies to try to improve and upper airway cough syndrome. Patient would like to avoid pill so therefore will use a couple different nasal sprays. She can also bulk picker some [id number] saline and perform nasal rinsing at nighttime to minimize the drippage and congestion when she is laying supine. 06/17/2022 the patient is here for a pulmonary follow-up visit. Overall the patient is doing well from a respiratory status. She has been using her respiratory therapy with good effect. She also continues with nasal therapy. She still complains of nasal congestion. She does not have any recent laboratories to review. Her last chest x-ray was from September 2021 demonstrating no acute disease. She continues with her hypertonic saline with good effect. 01/23/2023 the patient is here for pulmonary follow-up visit. She has been complaining of a cough that is nonproductive in nature. Now for the last few months. Seems to be getting slightly better. The phlegm is yellowish in color. Initially she had a hard time sleeping because of the cough. This complained of sinusitis. The patient did try the nasal sprays but the nasal sprays cause a bleeding from the nose. Therefore she stopped them. She also has been using her inhalers with partial improvement of the symptoms. No significant wheezing on exam although she does have a productive cough. Will go and start her on a course of doxycycline to treat her for a lower respiratory infection. The patient also has been complaining of increased fatigue and daytime drowsiness. I did recommend she get a chest x-ray in 1-2 weeks. Will follow up with the results 07/26/2023 the patient is here for a pulmonary follow-up visit. She is still having hard time with her breathing and her cough. Apparently it got worse again. Now with yellowish greenish phlegm. Very tenacious difficult to expectorate. She goes to coughing spells moderate severity. She has concerned that she continues to have this chronic bronchitis issue. Seems that she has a baseline chronic bronchitis but this is an exacerbation at this time. No significant wheezing although she does have rhonchi in a very bronchospastic cough at this time. We were able to get a sputum specimen for culture. The patient was start low-dose prednisone and doxycycline. She does take flecainide so she does have limited options when it comes to antibiotics. She also was prescribed Augmentin over the fall and she did develop significant diarrhea and she had to stop it. Her last chest x-ray back over the summer was okay. If she has any worsening symptoms and does not respond to the therapy she will get a repeat x-ray. If the x-ray is not helpful then consider additional imaging studies suggest a CT scan of the chest and also and or bronchoscopy. 09/27/2023 the patient is here for a pulmonary follow-up visit. The patient overall has been feeling a little better. She still coughing the cough is still productive in nature. Although significantly better than before. She has been using her inhalers although her adverse no longer available she is taking the generic that she is concerned because is very expensive. We did talk about the [employer] card and [employer] and she can get that for better walker and I did give her a script for that. In the meantime for chronic bronchitis she did have a culture for strep pneumo and therefore we did vaccinated for that with the Prevnar 20 vaccine today. She was also treated with Augmentin. Therefore, will go ahead and request she start Daliresp to treat her chronic bronchitis with the hope that there was decrease the chest congestion. If she continues to be congested then we should send sputum to make sure that we completely eradicated the strep pneumo. Her chest x-ray was read as clear back over the summer 2022. If her symptoms persist she will come back and get another x-ray. Now the option to get a CT scan of chest and or a bronchoscopy for both diagnostic and therapeutic interventions. 01/31/2024 the patient is here for a pulmonary follow-up visit. She is due struggling with a cough. Productive in nature yellowish phlegm. Worse at nighttime. Moderate severity. The patient did have a visit back in September where we did give her Prevnar 20 vaccine and then we did treat her with doxycycline and also treated her where a with Augmentin for the strep pneumo lung infection that cultured in her sputum. She initially did feel better but then again now symptoms are worsening again. Will go ahead and give her Augmentin again for couple weeks and then get another culture to make sure is clear. She was supposed to get an x-ray. Will go ahead and requested at this time prior to her leaving. And then if still abnormal consider a CT scan of the chest and also consider bronchoscopy for therapeutic and diagnostic interventions. She has worried about a which still inside the house. At this point would still is off so therefore believe that is affecting her breathing right now. But indeed it can affect her breathing and caused irritation to the airways during the winter months. Will follow-up in a couple months. If she has any worsening symptoms she will call for an earlier assessment. [facility] Medical History Abnormal chest x-ray Statin intolerance Essential hypertension Atherosclerotic cardiovascular disease PAF (paroxysmal atrial fibrillation) Non-rheumatic aortic stenosis Murmur, heart GERD (gastroesophageal reflux disease) Cough Asthma-COPD overlap syndrome Bronchitis Surgical History History of left knee replacement History of carpal tunnel release Family History Mother Breast cancer Father Heart attack Other Allergies Social History Comment: stiffness Patient Tobacco Use Status: Never used Tobacco Review of Systems Const Denies chills, Denies fatigue, Denies fever(s), Denies frequent falls, Denies weakness, Denies weight gain and Denies weight loss ENT Denies dizziness and Reports post nasal drip Card Denies chest pain, Denies leg edema, Denies lightheadedness, Denies palpitations, Denies dyspnea, Denies dyspnea on exertion, Denies orthopnea and Denies other (Loss of consciousness) Resp Reports chest congestion, Reports cough, Denies dyspnea and Denies dyspnea on exertion GI Denies hematochezia and Denies change in bowel habits Musc Denies abnormal gait, Denies muscle weakness, Denies numbness, Denies radiating pain into limb and Denies tingling Neuro Denies abnormal gait, Denies dizziness, Denies frequent falls, Denies numbness, Denies tingling and Denies weakness Endo Denies fatigue and Denies palpitations Physical Exam Vital Signs: Last Vital Signs Pulse 69 01/31/24 11:25 Pulse Ox 99 01/31/24 11:25 Oxygen Delivery Method Room Air 01/31/24 11:25 BMI result Body Mass Index 30.4 Const General: alert Neck Neck: Yes normal visual inspection, Yes full ROM and Yes no lymphadenopathy Chest Chest palpation & inspection: normal inspection of the chest Resp Effort & Inspection: Actively coughing Quality: productive Auscultation: rhonchi, no wheezes and diminished lung sounds Cardio Rate: regular rate Rhythm: regular rhythm Heart sounds: S1 normal heart sound present and S2 normal heart sound present GI Palpation (GI): Soft to palpation and nontender Auscultation: normal bowel sounds Skin General skin exam: rashes and/or lesions noted Assessment & Plan Assessment & Plan (1) Bronchitis: Code(s): J40 - Bronchitis, not specified as acute or chronic Category: Medical (2) Asthma-COPD overlap syndrome: Code(s): J44.9 - Chronic obstructive pulmonary disease, unspecified Category: Medical (3) Cough: Code(s): R05 - Cough Category: Medical Qualifiers: Cough type: chronic Qualified Code(s): R05.3 - Chronic cough (4) Abnormal chest x-ray: Code(s): R93.89 - Abnormal findings on diagnostic imaging of other specified body structures Category: Medical Plan continue Flonase continue Astelin nasal spray nasal rinsing with saline Continue Airduo with Smart[employer] card for better pricing sputum cx ARELIS ass needed restart Augmrntin for now CXR, if abnormal CT chest consider bronchoscopy F/U 2-3 months Orders: Orders Sputum Cult + Gram stain Today R05.3 - Chronic cough XR chest 2V Today R05.3 - Chronic cough Medications: New amoxicillin-pot clavulanate 875-125 mg 1 tab PO BID 28 tabs 0RF 14 days Coding Level of Care Code Est Pt Level 4 (46536) Diagnoses Bronchitis J40 Asthma-COPD overlap syndrome J44.9 Chronic cough R05.3 Cough type: chronic Abnormal chest x-ray R93.89 Time Spent (min) 17
== END 2024-01-31 13:23 | disposition home or self-care (01) ==
PROVIDERS: PCP Nurse Practitioner Adult Health; Visit Provider Hospitalist
DX: J40 Bronchitis, not specified as acute or chronic (principal); J44.9 Chronic obstructive pulmonary disease, unspecified; R05.3 Chronic cough; R93.89 Abnormal findings on diagnostic imaging of other specified body structures
CPT/HCPCS: 99214

== ENCOUNTER 2024-02-26 10:22 | Outpatient (AMB) | payer MEDICARE, SELFPAY ==
[2024-02-26 10:30] VITALS: BP 122/68; PULSE 67; BMI 30.1
--- NOTE | 2024-02-26 10:30 | A.OFFVIS_ITS ---
Vital Signs 02/26/24 10:30 Height 5 ft 3 in Weight 169 lb 12.095 oz BMI 30.1 BP 122/68 Blood Pressure Location Lt brachial Position Sitting Pulse 67 Pulse Source Monitor Intake Visit Reasons: 6 mth fu Allergies atorvastatin Adverse Reaction (Severe, Verified 01/31/24 11:26) muscle aches simvastatin Adverse Reaction (Severe, Verified 01/31/24 11:26) Muscles Aches Medication List - Last Reconciled 02/26/24 by Chandler Cisneros MD albuterol sulfate 90 mcg/actuation 2 inhalations inhalation Q6H PRN 30 days azelastine 2 sprays intranasal BID 30 days cholecalciferol (vitamin D3) 25 mcg PO DAILY coenzyme Q10 (Ultra CoQ10) 75 mg PO DAILY flecainide 50 mg PO BID 90 days fluticasone propion-salmeterol 232-14 mcg/actuation (AirDuo RespiClick) 1 inh inhalation Q12H 30 days fluticasone propion-salmeterol 250-50 mcg/dose (Advair Diskus) 1 ea PO BID metoprolol succinate ER 12.5 mg (1/2 x 25 mg) PO DAILY 90 days nebulizers As directed rivaroxaban (Xarelto) 20 mg PO DAILY rosuvastatin 10 mg PO BEDTIME tobramycin in 0.225 % NaCl 300 mg/5 mL (Marques) 300 mg (5 mL) inhalation BID 28 days turmeric mg PO valsartan 160 mg PO DAILY HPI Comments Details: Lainey returns for follow-up regarding atrial fibrillation, aortic stenosis, coronary artery disease. Lots of nonspecific complaints like aches and pains and constitutional symptoms. She states she is also dealing with respiratory issues. From cardiac, no chest pains or anything clear-cut cardiac sounding. She is thinking of going for hip surgery as well. [facility] Medical History (Updated 02/26/24 @ 11:28 by Chandler Cisneros MD) Pseudomonal pneumonia Abnormal chest x-ray Statin intolerance Essential hypertension Atherosclerotic cardiovascular disease PAF (paroxysmal atrial fibrillation) Non-rheumatic aortic stenosis Murmur, heart GERD (gastroesophageal reflux disease) Cough Asthma-COPD overlap syndrome Bronchitis Surgical History History of left knee replacement History of carpal tunnel release Family History Mother Breast cancer Father Heart attack Other Allergies Social History Comment: stiffness Patient Tobacco Use Status: Never used Tobacco Review of Systems Const Denies weakness ENT Denies dizziness Card Denies chest pain, Denies chest pain with activity, Denies syncope, Denies rapid heart rate, Denies pedal edema, Denies edema, Denies leg edema, Denies lightheadedness, Denies palpitations, Denies dyspnea, Denies dyspnea on exertion and Denies orthopnea Resp Denies cough, Denies dyspnea and Denies dyspnea on exertion GI Denies hematochezia and Denies change in stool character Musc Denies abnormal gait, Denies muscle cramps, Denies muscle weakness, Denies numbness, Denies radiating pain into limb and Denies tingling Neuro Denies abnormal gait, Denies dizziness, Denies syncope, Denies numbness, Denies tingling and Denies weakness Endo Denies palpitations Physical Exam Vital Signs: Last Vital Signs Pulse 67 02/26/24 10:30 BP 122/68 02/26/24 10:30 BMI result Body Mass Index 30.1 Const General: comfortable and no acute distress Orientation/consciousness: patient oriented x3 HEENT Other: Unremarkable Head: Yes normal to inspection Neck Neck: Yes normal visual inspection Chest Chest palpation & inspection: normal inspection of the chest Resp Auscultation: wheezes and diminished lung sounds Cardio Palpation: normal PMI Heart sounds: S1 normal heart sound present, S2 normal heart sound present, no gallops, Murmur heart sound present systolic III/ and at the right sternal border and no rubs GI Palpation (GI): Soft to palpation Back/Spine/Pelvis Other: unremarkable Skin Other: Bruising related to anticoagulation and skin fragility. General skin exam: no rashes or lesions noted Neuro General: patient oriented x3 Extrem Other: 1+ L >R LE swelling. General: Yes normal to inspection Psych Mental Status: mental status grossly normal Office Procedures EKG Details: EKG with sinus rhythm at 67/Min; no significant ST-T changes and otherwise unremarkable. [place] [id number], Complete Assessment & Plan Assessment & Plan (1) Non-rheumatic aortic stenosis: Code(s): I35.0 - Nonrheumatic aortic (valve) stenosis Category: Medical Plan: In the most recent echocardiogram, moderately calcified aortic valve with mild stenosis. Preserved LVEF at 63%. Will continue to follow. No interventions at this time. (2) PAF (paroxysmal atrial fibrillation): Code(s): I48.0 - Paroxysmal atrial fibrillation Category: Medical Plan: She remains in sinus rhythm. She has been stable on flecainide and beta- blockers. EKG is not showing any conduction system disease. Continue anticoagulation. Most recent creatinine is 0.84. (3) Atherosclerotic cardiovascular disease: Code(s): I25.10 - Atherosclerotic heart disease of [place] coronary artery without angina pectoris Category: Medical Plan: Coronary CTA in the past - mild nonobstructive disease in the left main and moderate disease in the proximal circumflex. Clinically, does not have any angina or ischemic sounding symptoms. She has unfortunately not suitable for a stress test as she has walking with a cane and can not do pharmacological with Lexiscan either due to wheezing. Will need to follow clinically. Continue statins. Most recent LDL 86 mg/dl. Previously, as much as 157 mg/dL. (4) Essential hypertension: Code(s): I10 - Essential (primary) hypertension Category: Medical Plan: Seems to be controlled today. On valsartan. She has been on amlodipine as well as lisinopril in the past but not taking anymore due to intolerance. (5) Statin intolerance: Code(s): Z78.9 - Other specified health status Category: Medical Plan: Symptoms more likely from arthritic issues than statin tolerance. On a small dose of statin. No changes. (6) Preoperative cardiovascular examination: Code(s): Z01.810 - Encounter for preprocedural cardiovascular examination Category: Medical Plan: She states that she is thinking of hip surgery but not definitive. With known coronary disease, atrial fibrillation, pulmonary issues including wheezing as well as other comorbidities, she would be at at least intermediate risk. Renuka- operative cardiac risks including myocardial infarction discussed. Coding Level of Care Code Est Pt Level 4 (95463) Diagnoses Non-rheumatic aortic stenosis I35.0 PAF (paroxysmal atrial fibrillation) I48.0 Atherosclerotic cardiovascular disease I25.10 Essential hypertension I10 Statin intolerance Z78.9 Preoperative cardiovascular examination Z01.810 CPT Codes EKG - CPT: 45236-[id number], Complete ([id number])
== END 2024-02-26 10:58 | disposition home or self-care (01) ==
PROVIDERS: PCP Nurse Practitioner Adult Health; Visit Provider Internal Medicine
DX: I35.0 Nonrheumatic aortic (valve) stenosis (principal); I48.0 Paroxysmal atrial fibrillation; I25.10 Atherosclerotic heart disease of native coronary artery without angina pectoris; I10 Essential (primary) hypertension; Z78.9 Other specified health status; Z01.810 Encounter for preprocedural cardiovascular examination
CPT/HCPCS: 93010; 99214

== ENCOUNTER → 2024-02-26 10:22 | Outpatient (BNVA) | payer MEDICARE, SELFPAY | PROVIDERS: PCP Nurse Practitioner Adult Health; Visit Provider Internal Medicine | DX: Z01.810 Encounter for preprocedural cardiovascular examination (principal); I35.0 Nonrheumatic aortic (valve) stenosis; I48.0 Paroxysmal atrial fibrillation; I25.10 Atherosclerotic heart disease of native coronary artery without angina pectoris; I10 Essential (primary) hypertension; Z78.9 Other specified health status | CPT/HCPCS: 93005; 99212 ==

== ENCOUNTER 2024-03-01 07:25 | Outpatient (REF) | payer MEDICARE, SELFPAY ==
--- NOTE | ~2024-03-01 | CT_ITS ---
EXAMINATION: CT CHEST WITHOUT CONTRAST CLINICAL INFORMATION: Bronchitis, not specified as acute or chronic COMPARISON: No prior chest CT. Chest x-ray 01/31/2024. TECHNIQUE: Multidetector volumetric CT imaging of the chest was done. Axial MIP volume rendering provided. Sagittal and coronal reformatted images were obtained. This CT examination was performed using dose optimization techniques as appropriate, variously including the following: *Automated exposure control *Adjustment of mA and/or kV according to patient size (this includes techniques or standardized protocols for targeted exams where dose is matched to indication/reason for exam; i.e. extremities or head) *Use of iterative reconstruction technique DLP: 202 mGy-cm FINDINGS: LUNGS: Diffuse mild airway wall thickening consistent with the given history of bronchitis. Tree-in-bud airspace disease in the left lower lobe consistent with bronchiolitis. Mosaic attenuation indicating air trapping, more prominent in the upper lobes. Small focus of atelectasis at the right lung base. Ossified granuloma left lower lobe series 5 image 264 3 mm angular subpleural nodule right lower lobe series 5 image 325 consistent with a parenchymal lymph node 6.4 mm subpleural groundglass nodule right lower lobe series 5 image 272 is nonspecific. MEDIASTINUM: No adenopathy. No aortic aneurysm. Significant mitral annular calcification. Aortic valve calcification. CORONARY ARTERY CALCIFICATION: Mild RCA coronary calcium. PLEURA: There is no pleural effusion. No pleural mass or thickening. AXILLA: No lymphadenopathy. UPPER ABDOMEN: Small hiatal hernia. Small simple cyst in segment 7 of the liver. No imaging follow-up is recommended. OSSEOUS STRUCTURES: Degenerative changes in the spine. CT/CT chest wo IV con IMPRESSION: Findings consistent with the clinical indication of bronchitis. Likely acute bronchiolitis in the left lower lobe. Nonspecific 6.4 mm groundglass nodule right lower lobe. 2017 Fleischner Society Recommendations for Lung Nodule(s): Follow-Up based on size (average of long- and short-axis diameters). Use most suspicious nodule for followup. Single GG lung nodule >= 6 mm: Recommend a non-contrast Chest CT at 6-12 months to confirm persistence, then additional non-contrast Chest CTs every 2 years until 5 years. These guidelines do not apply to patients younger than 35 years, immunocompromised patients, and patients with cancer. Follow up in patients with significant comorbidities as clinically warranted. For lung cancer screening, adhere to Lung-RADS guidelines. Reference: Radiology. 2017 [place]; 284(1):228-243 Fleischner guidelines were followed.
== END 2024-03-01 07:26 | disposition home or self-care (01) ==
LOC: HO.CT 07:25
PROVIDERS: Visit Provider Hospitalist
DX: J40 Bronchitis, not specified as acute or chronic (principal)
CPT/HCPCS: 71250

== ENCOUNTER 2024-04-17 11:09 | Outpatient (AMB) | payer MEDICARE, SELFPAY ==
[2024-04-17 11:30] VITALS: BP 128/60; PULSE 60; O2SAT 98; BMI 29.0
--- NOTE | 2024-04-17 11:30 | MHC.OFFVIS ---
Vital Signs 04/17/24 11:30 Height 5 ft 3 in Weight 164 lb BMI 29.0 BP 128/60 Blood Pressure Location Lt brachial Position Sitting Pulse 60 Pulse Source Pulse Oximeter Pulse Oximetry (%) 98 Oxygen Delivery Method Room Air Intake Visit Reasons: COPD Associate Director Of Development Required: No Allergies atorvastatin Adverse Reaction (Severe, Verified 04/17/24 11:34) muscle aches simvastatin Adverse Reaction (Severe, Verified 04/17/24 11:34) Muscles Aches HPI Comments Details: The patient is a 84-year-old woman with a known history of lifelong asthma. apparently back in October her respiratory symptoms got much worse with productive cough and green sputum. She was having hard time breathing with shortness of breath and likely wheezing. She was initially evaluated and was she was given a Z-Joshua. And then subsequent after that she was given some prednisone. She was asked to call back if she had any difficulties. Months past and she has not called back. However, her breathing has gotten where were then productive sputum yellowish in color. Sometimes it does gag her with coughing. on further questioning the patient usually gets worse in October. She does have a living space in the basement that this been a good amount of time in. No obvious mold. No birds or animals. 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 Nobody smokes in the house. We did look at her last chest x-ray from August 2011 that she had for her cardiac issues. The time of that that she had some tram tracking suggesting some bronchiectatic changes in the right base. She has not had a x-ray for does prolonged bronchitis. On exam she does have some coarse BS, end exhalation wheezing and bronchospastic cough. 01/23/2023 the patient is here for pulmonary follow-up visit. She has been complaining of a cough that is nonproductive in nature. Now for the last few months. Seems to be getting slightly better. The phlegm is yellowish in color. Initially she had a hard time sleeping because of the cough. This complained of sinusitis. The patient did try the nasal sprays but the nasal sprays cause a bleeding from the nose. Therefore she stopped them. She also has been using her inhalers with partial improvement of the symptoms. No significant wheezing on exam although she does have a productive cough. Will go and start her on a course of doxycycline to treat her for a lower respiratory infection. The patient also has been complaining of increased fatigue and daytime drowsiness. I did recommend she get a chest x-ray in 1-2 weeks. Will follow up with the results 07/26/2023 the patient is here for a pulmonary follow-up visit. She is still having hard time with her breathing and her cough. Apparently it got worse again. Now with yellowish greenish phlegm. Very tenacious difficult to expectorate. She goes to coughing spells moderate severity. She has concerned that she continues to have this chronic bronchitis issue. Seems that she has a baseline chronic bronchitis but this is an exacerbation at this time. No significant wheezing although she does have rhonchi in a very bronchospastic cough at this time. We were able to get a sputum specimen for culture. The patient was start low-dose prednisone and doxycycline. She does take flecainide so she does have limited options when it comes to antibiotics. She also was prescribed Augmentin over the fall and she did develop significant diarrhea and she had to stop it. Her last chest x-ray back over the summer was okay. If she has any worsening symptoms and does not respond to the therapy she will get a repeat x-ray. If the x-ray is not helpful then consider additional imaging studies suggest a CT scan of the chest and also and or bronchoscopy. 09/27/2023 the patient is here for a pulmonary follow-up visit. The patient overall has been feeling a little better. She still coughing the cough is still productive in nature. Although significantly better than before. She has been using her inhalers although her adverse no longer available she is taking the generic that she is concerned because is very expensive. We did talk about the [employer] card and [employer] and she can get that for better walker and I did give her a script for that. In the meantime for chronic bronchitis she did have a culture for strep pneumo and therefore we did vaccinated for that with the Prevnar 20 vaccine today. She was also treated with Augmentin. Therefore, will go ahead and request she start Daliresp to treat her chronic bronchitis with the hope that there was decrease the chest congestion. If she continues to be congested then we should send sputum to make sure that we completely eradicated the strep pneumo. Her chest x-ray was read as clear back over the summer 2022. If her symptoms persist she will come back and get another x-ray. Now the option to get a CT scan of chest and or a bronchoscopy for both diagnostic and therapeutic interventions. 01/31/2024 the patient is here for a pulmonary follow-up visit. She is due struggling with a cough. Productive in nature yellowish phlegm. Worse at nighttime. Moderate severity. The patient did have a visit back in September where we did give her Prevnar 20 vaccine and then we did treat her with doxycycline and also treated her where a with Augmentin for the strep pneumo lung infection that cultured in her sputum. She initially did feel better but then again now symptoms are worsening again. Will go ahead and give her Augmentin again for couple weeks and then get another culture to make sure is clear. She was supposed to get an x-ray. Will go ahead and requested at this time prior to her leaving. And then if still abnormal consider a CT scan of the chest and also consider bronchoscopy for therapeutic and diagnostic interventions. She has worried about a which still inside the house. At this point would still is off so therefore believe that is affecting her breathing right now. But indeed it can affect her breathing and caused irritation to the airways during the winter months. Will follow-up in a couple months. If she has any worsening symptoms she will call for an earlier assessment. 04/17/2024 the patient is here for a pulmonary follow-up visit. She is still struggling with breathing. She has had significant chest congestion. Suppurative airway disease. She did have a sputum culture done and was positive for Pseudomonas in addition to Haemophilus influenzae. She can not tolerate quinolones because she is on flecainide. Unfortunately. The patient ultimately had a CT scan of the chest which we personally reviewed demonstrating bilateral bronchiectasis some treating budding some mucus plugging. Based on the fact that she has bronchiectasis the patient was started on inhaled tobramycin 28 days on. She just completed 28 days. She feels like cough did get better. Although recently she started noticing increasing chest tightness and wheezing in addition to more chest congestion. We were able to get another sputum culture in the office. Unfortunately again she is on flecainide has limited antibiotic coverage. Will go ahead and treated with doxycycline for the possibility of recurrent Haemophilus and also will go ahead and give her some prednisone because she is having increased chest tightness and wheezing. Will continue to plan to continue the inhaled tobramycin 28 days on 20 days off. Although she did have some increased wheezing not sure if is related to the inhaled ZAK. We have to reassess when she restarts it. The other option 2 would be to consider bronchoscopy if the patient continues to be symptomatic for proper therapeutic cleaning of the airways assessing any airway disease or obstructions in addition to that making sure that we get the cultures. Therefore, go ahead and treat the patient now and consider bronchoscopy if the patient is no better. Also, will have the patient have some blood work including immune status to assess any potential etiology for her persistent lower respiratory infections. [facility] Medical History (Updated 04/17/24 @ 21:56 by Gagan Ratliff MD) Bronchiectasis Pseudomonal pneumonia Abnormal chest x-ray Statin intolerance Essential hypertension Atherosclerotic cardiovascular disease PAF (paroxysmal atrial fibrillation) Non-rheumatic aortic stenosis Murmur, heart GERD (gastroesophageal reflux disease) Cough Asthma-COPD overlap syndrome Bronchitis Surgical History History of left knee replacement History of carpal tunnel release Family History Mother Breast cancer Father Heart attack Other Allergies Social History Comment: stiffness Patient Tobacco Use Status: Never used Tobacco Review of Systems Const Denies chills, Denies fatigue, Denies fever(s), Denies frequent falls, Denies weakness, Denies weight gain and Denies weight loss ENT Denies dizziness and Reports post nasal drip Card Denies chest pain, Denies leg edema, Denies lightheadedness, Denies palpitations, Denies dyspnea, Denies dyspnea on exertion, Denies orthopnea and Denies other (Loss of consciousness) Resp Reports change in phlegm color, Reports chest congestion, Reports cough, Denies dyspnea, Denies dyspnea on exertion and Reports wheezing GI Denies hematochezia and Denies change in bowel habits Musc Denies abnormal gait, Denies muscle weakness, Denies numbness, Denies radiating pain into limb and Denies tingling Neuro Denies abnormal gait, Denies dizziness, Denies frequent falls, Denies numbness, Denies tingling and Denies weakness Endo Denies fatigue and Denies palpitations Aller/Immun Reports wheezing Physical Exam Vital Signs: Last Vital Signs Pulse 60 04/17/24 11:30 BP 128/60 04/17/24 11:30 Pulse Ox 98 04/17/24 11:30 Oxygen Delivery Method Room Air 04/17/24 11:30 BMI result Body Mass Index 29.0 Const General: alert Neck Neck: Yes normal visual inspection, Yes full ROM and Yes no lymphadenopathy Chest Chest palpation & inspection: normal inspection of the chest Resp Effort & Inspection: Actively coughing Quality: productive and prolonged expiratory phase Auscultation: rhonchi, wheezes and diminished lung sounds Cardio Rate: regular rate Rhythm: regular rhythm Heart sounds: S1 normal heart sound present and S2 normal heart sound present GI Palpation (GI): Soft to palpation and nontender Auscultation: normal bowel sounds Skin General skin exam: rashes and/or lesions noted Results Reviewed Results Reviewed: personally reviewd CT chest with bronchiectasis bilateral Assessment & Plan Assessment & Plan (1) Bronchiectasis: Code(s): J47.9 - Bronchiectasis, uncomplicated Category: Medical Qualifiers: Bronchiectasis type: with acute exacerbation Qualified Code(s): J47.1 - Bronchiectasis with (acute) exacerbation (2) Bronchitis: Code(s): J40 - Bronchitis, not specified as acute or chronic Category: Medical (3) Asthma-COPD overlap syndrome: Code(s): J44.9 - Chronic obstructive pulmonary disease, unspecified Category: Medical (4) Cough: Code(s): R05 - Cough Category: Medical Qualifiers: Cough type: chronic Qualified Code(s): R05.3 - Chronic cough Plan start Prednisone taper start Doxycycline nebs 2 times a day followed by [facility] for CPT continue inhaled Zak 28 days on/28 days off continue Flonase continue Astelin nasal spray nasal rinsing with saline Continue [employer] with [employer] card for better pricing sputum cx bloodwork ARELIS ass needed consider bronchoscopy F/U 4-6 weeks Orders: Orders Immunoglobulins,IgG IgA IgM Today J47.9 - Bronchiectasis, uncomplicated Immunoglobulin G Subclasses Today J47.9 - Bronchiectasis, uncomplicated Sputum Cult + Gram stain Today J47.9 - Bronchiectasis, uncomplicated Complete Blood Count Auto Diff Today J47.9 - Bronchiectasis, uncomplicated Basic Metabolic Panel Today J47.9 - Bronchiectasis, uncomplicated Immunoglobulin E Today J47.9 - Bronchiectasis, uncomplicated Erythrocyte Sedimentation Rate Today J47.9 - Bronchiectasis, uncomplicated Medications: New levalbuterol HCl 1.25 mg (3 mL) inhalation BID 180 mL 0RF 30 days J44.9 - Chronic obstructive pulmonary disease, unspecified doxycycline monohydrate 100 mg PO BID 28 tabs 0RF 14 days prednisone PO daily; Take 2 tabs daily x 5 days, then 1 tablet daily x 5 days 15 tabs 0RF 10 days Coding Level of Care Code Est Pt Level 5 (84383) Complex EM visit Add On G2211 Diagnoses Bronchiectasis with acute exacerbation J47.1 Bronchiectasis type: with acute exacerbation Bronchitis J40 Asthma-COPD overlap syndrome J44.9 Chronic cough R05.3 Cough type: chronic Time Spent (min) 60
== END 2024-04-17 12:03 | disposition home or self-care (01) ==
PROVIDERS: PCP Nurse Practitioner Adult Health; Visit Provider Hospitalist
DX: J47.1 Bronchiectasis with (acute) exacerbation (principal); J40 Bronchitis, not specified as acute or chronic; J44.9 Chronic obstructive pulmonary disease, unspecified; R05.3 Chronic cough
CPT/HCPCS: 99215; G2211; G2212

== ENCOUNTER 2024-04-17 11:09 | Outpatient (REF) | payer MEDICARE, SELFPAY ==
[2024-04-17 12:17] LABS: MANUAL DIFF FLAG NO
[2024-04-17 12:35] LABS: Basophils Percent Auto 0.1 % (0-2); Eosinophils Absolute Auto 0.1 X10*3/uL (0.0-0.4); Eosinophils Percent Auto 1.8 % (0-4); Hematocrit 36.6 % (37.0-47.0); Hemoglobin 12.2 g/dl (12.0-16.0); Imm Gran Abs Auto 0.03 X10*3/uL (0.00-0.03); Imm Gran Pct Auto 0.4 % (0.0-0.4); Lymphocytes Absolute Auto 1.9 X10*3/uL (1.2-4.9); Lymphocytes Percent Auto 23.9 % (20-40); Mean Corpuscular HGB Conc 33.3 g/dl (31.0-35.0); Mean Corpuscular Hemoglobin 31.4 pg (27.0-33.0); Mean Corpuscular Volume 94.1 fL (80.0-98.0); Mean Platelet Volume 8.3 fL (9.4-12.3); Monocytes Percent Auto 12.1 % (2-11); Neutrophils Absolute Auto 4.9 x10*3/uL (2.0-8.3); Neutrophils Percent Auto 61.7 % (45-73); Platelet Count 361 X10*3/uL (160-400); Red Blood Count 3.89 X10*6/uL (4.20-5.50); Red Cell Distribution Width 14.1 % (11.0-16.0); White Blood Count 7.9 X10*3/uL (4.8-10.8)
[2024-04-17 12:58] LABS: Anion Gap 14 (12-20); Blood Urea Nitrogen 20 mg/dL (9-16); Carbon Dioxide 25 mmol/L (22-29); Chloride 104 mmol/L (96-108); Estimated Glomerular Filt Rate > 60; Glucose Random 103 mg/dL (60-115); Potassium 5.2 mmol/L (3.3-5.1); Sodium 138 mmol/L (135-145)
[2024-04-17 13:10] LABS: Erythrocyte Sedimentation Rate 81 MM/HR (0-20)
[2024-04-19 01:54] LABS: IgA 148 mg/dL (70-320); IgG 1062 mg/dL (600-1540); IgM 126 mg/dL (50-300)
[2024-04-19 05:09] LABS: Immunoglobulin E 20 kU/L (<OR=114)
[2024-04-19 13:04] LABS: Immunoglobulin G Subclass 1 460 mg/dL (382-929); Immunoglobulin G Subclass 2 338 mg/dL (241-700); Immunoglobulin G Subclass 3 117 mg/dL (22-178); Immunoglobulin G Total 953 mg/dL (600-1540)
== END 2024-04-17 11:10 | disposition home or self-care (01) ==
LOC: HO.LAB 11:09
PROVIDERS: PCP Nurse Practitioner Adult Health; Visit Provider Hospitalist
DX: J47.1 Bronchiectasis with (acute) exacerbation (principal); J40 Bronchitis, not specified as acute or chronic; R05.3 Chronic cough
CPT/HCPCS: 36415; 80048; 82784; 82785; 85025; 85652; 87070; 87107; 87205; 99212

== ENCOUNTER 2024-05-16 11:10 | Outpatient (AMB) | payer MEDICARE, SELFPAY ==
[2024-05-16 11:13] VITALS: BP 128/70; PULSE 68; O2SAT 99; BMI 30.1
--- NOTE | 2024-05-16 11:13 | A.OFFVIS_ITS ---
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 apparently back in October her respiratory symptoms got much worse with productive cough and green sputum. She was having hard time breathing with shortness of breath and likely wheezing. She was initially evaluated and was she was given a Z-Joshua. And then subsequent after that she was given some prednisone. She was asked to call back if she had any difficulties. Months past and she has not called back. However, her breathing has gotten where were then productive sputum yellowish in color. Sometimes it does gag her with coughing. on further questioning the patient usually gets worse in October. She does have a living space in the basement that this been a good amount of time in. No obvious mold. No birds or animals. 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 Nobody smokes in the house. We did look at her last chest x-ray from August 2011 that she had for her cardiac issues. The time of that that she had some tram tracking suggesting some bronchiectatic changes in the right base. She has not had a x-ray for does prolonged bronchitis. On exam she does have some coarse BS, end exhalation wheezing and bronchospastic cough. 01/23/2023 the patient is here for pulmonary follow-up visit. She has been complaining of a cough that is nonproductive in nature. Now for the last few months. Seems to be getting slightly better. The phlegm is yellowish in color. Initially she had a hard time sleeping because of the cough. This complained of sinusitis. The patient did try the nasal sprays but the nasal sprays cause a bleeding from the nose. Therefore she stopped them. She also has been using her inhalers with partial improvement of the symptoms. No significant wheezing on exam although she does have a productive cough. Will go and start her on a course of doxycycline to treat her for a lower respiratory infection. The patient also has been complaining of increased fatigue and daytime drowsiness. I did recommend she get a chest x-ray in 1-2 weeks. Will follow up with the results 07/26/2023 the patient is here for a pulmonary follow-up visit. She is still having hard time with her breathing and her cough. Apparently it got worse again. Now with yellowish greenish phlegm. Very tenacious difficult to expectorate. She goes to coughing spells moderate severity. She has concerned that she continues to have this chronic bronchitis issue. Seems that she has a baseline chronic bronchitis but this is an exacerbation at this time. No significant wheezing although she does have rhonchi in a very bronchospastic cough at this time. We were able to get a sputum specimen for culture. The patient was start low-dose prednisone and doxycycline. She does take flecainide so she does have limited options when it comes to antibiotics. She also was prescribed Augmentin over the fall and she did develop significant diarrhea and she had to stop it. Her last chest x-ray back over the summer was okay. If she has any worsening symptoms and does not respond to the therapy she will get a repeat x-ray. If the x-ray is not helpful then consider additional imaging studies suggest a CT scan of the chest and also and or bronchoscopy. 09/27/2023 the patient is here for a pulmonary follow-up visit. The patient overall has been feeling a little better. She still coughing the cough is still productive in nature. Although significantly better than before. She has been using her inhalers although her adverse no longer available she is taking the generic that she is concerned because is very expensive. We did talk about the [employer] card and [employer] and she can get that for better walker and I did give her a script for that. In the meantime for chronic bronchitis she did have a culture for strep pneumo and therefore we did vaccinated for that with the Prevnar 20 vaccine today. She was also treated with Augmentin. Therefore, will go ahead and request she start Daliresp to treat her chronic bronchitis with the hope that there was decrease the chest congestion. If she continues to be congested then we should send sputum to make sure that we completely eradicated the strep pneumo. Her chest x-ray was read as clear back over the summer 2022. If her symptoms persist she will come back and get another x-ray. Now the option to get a CT scan of chest and or a bronchoscopy for both diagnostic and therapeutic interventions. 01/31/2024 the patient is here for a pulmonary follow-up visit. She is due struggling with a cough. Productive in nature yellowish phlegm. Worse at nighttime. Moderate severity. The patient did have a visit back in September where we did give her Prevnar 20 vaccine and then we did treat her with doxycycline and also treated her where a with Augmentin for the strep pneumo lung infection that cultured in her sputum. She initially did feel better but then again now symptoms are worsening again. Will go ahead and give her Augmentin again for couple weeks and then get another culture to make sure is clear. She was supposed to get an x-ray. Will go ahead and requested at this time prior to her leaving. And then if still abnormal consider a CT scan of the chest and also consider bronchoscopy for therapeutic and diagnostic interventions. She has worried about a which still inside the house. At this point would still is off so therefore believe that is affecting her breathing right now. But indeed it can affect her breathing and caused irritation to the airways during the winter months. Will follow-up in a couple months. If she has any worsening symptoms she will call for an earlier assessment. 04/17/2024 the patient is here for a pulmonary follow-up visit. She is still struggling with breathing. She has had significant chest congestion. Suppurative airway disease. She did have a sputum culture done and was positive for Pseudomonas in addition to Haemophilus influenzae. She can not tolerate quinolones because she is on flecainide. Unfortunately. The patient ultimately had a CT scan of the chest which we personally reviewed demonstrating bilateral bronchiectasis some treating budding some mucus plugging. Based on the fact that she has bronchiectasis the patient was started on inhaled tobramycin 28 days on. She just completed 28 days. She feels like cough did get better. Although recently she started noticing increasing chest tightness and wheezing in addition to more chest congestion. We were able to get another sputum culture in the office. Unfortunately again she is on flecainide has limited antibiotic coverage. Will go ahead and treated with doxycycline for the possibility of recurrent Haemophilus and also will go ahead and give her some prednisone because she is having increased chest tightness and wheezing. Will continue to plan to continue the inhaled tobramycin 28 days on 20 days off. Although she did have some increased wheezing not sure if is related to the inhaled ZAK. We have to reassess when she restarts it. The other option 2 would be to consider bronchoscopy if the patient continues to be symptomatic for proper therapeutic cleaning of the airways assessing any airway disease or obstructions in addition to that making sure that we get the cultures. Therefore, go ahead and treat the patient now and consider bronchoscopy if the patient is no better. Also, will have the patient have some blood work including immune status to assess any potential etiology for her persistent lower respiratory infections. 05/16/2024 the patient is here for a pulmonary follow-up visit. The patient overall is doing well from a respiratory status. She developed a rash however. Mainly affecting her neck area her hands and also her feet and heels. She is not sure if is related to the ZAK or after that she did take some doxycycline or his related to anything else. Will go ahead and request blood work to assess for any connective tissue conditions that may be doing this specially with her sedimentation rate of 82. Will hold off on antibiotics at this time based on the symptoms in the findings. However, if her chest congestion does reoccur she is to provide additional sputum culture to see the Pseudomonas is still present so we can treated. I do not feel strongly that the rash is related to the inhaled tobramycin. If anything I believe it may be for ototoxicity from the doxycycline. Although was in her feet she had been wearing sandals start the time. The patient should be using her nebulizer for chest PT followed by the Acapella valve. We did review her last CT scan of the chest demonstrating the bronchiectatic changes mucus plugging she also has some small pulmonary nodules that are subcentimeter in size and will require a follow-up CT scan sometime in the spring. [facility] Medical History (Updated 05/16/24 @ 11:34 by Gagan Ratliff MD) Rash Bronchiectasis Pseudomonal pneumonia Abnormal chest x-ray Statin intolerance Essential hypertension Atherosclerotic cardiovascular disease PAF (paroxysmal atrial fibrillation) Non-rheumatic aortic stenosis Murmur, heart GERD (gastroesophageal reflux disease) Cough Asthma-COPD overlap syndrome Bronchitis Surgical History History of left knee replacement History of carpal tunnel release Family History Mother Breast cancer Father Heart attack Other Allergies Social History Comment: stiffness Patient Tobacco Use Status: Never used Tobacco Review of Systems Const Denies chills, Denies fatigue, Denies fever(s), Denies frequent falls, Denies weakness, Denies weight gain and Denies weight loss ENT Denies dizziness and Reports post nasal drip Card Denies chest pain, Denies leg edema, Denies lightheadedness, Denies palpitations, Denies dyspnea, Denies dyspnea on exertion, Denies orthopnea and Denies other (Loss of consciousness) Resp Denies change in phlegm color, Denies chest congestion, Reports cough, Denies dyspnea, Denies dyspnea on exertion and Denies wheezing GI Denies hematochezia and Denies change in bowel habits Musc Reports myalgias, Reports arthralgias, Denies muscle weakness, Denies numbness, Denies radiating pain into limb and Denies tingling Skin/Breast Reports erythema and Reports rash Neuro Denies dizziness, Denies frequent falls, Denies numbness, Denies tingling and Denies weakness Endo Denies fatigue and Denies palpitations Aller/Immun Denies wheezing Physical Exam Vital Signs: Last Vital Signs Pulse 68 05/16/24 11:13 BP 128/70 05/16/24 11:13 Pulse Ox 99 05/16/24 11:13 Oxygen Delivery Method Room Air 05/16/24 11:13 BMI result Body Mass Index 30.1 Const General: alert Neck Neck: Yes normal visual inspection, Yes full ROM and Yes no lymphadenopathy Chest Chest palpation & inspection: normal inspection of the chest Resp Effort & Inspection: no cough Auscultation: no rhonchi, no wheezes and diminished lung sounds Cardio Rate: regular rate Rhythm: regular rhythm Heart sounds: S1 normal heart sound present and S2 normal heart sound present GI Palpation (GI): Soft to palpation and nontender Auscultation: normal bowel sounds Skin General skin exam: rashes and/or lesions noted Assessment & Plan Assessment & Plan (1) Bronchiectasis: Code(s): J47.9 - Bronchiectasis, uncomplicated Category: Medical Qualifiers: Bronchiectasis type: with acute exacerbation Qualified Code(s): J47.1 - Bronchiectasis with (acute) exacerbation (2) Asthma-COPD overlap syndrome: Code(s): J44.9 - Chronic obstructive pulmonary disease, unspecified Category: Medical (3) Cough: Code(s): R05 - Cough Category: Medical Qualifiers: Cough type: chronic Qualified Code(s): R05.3 - Chronic cough Plan nebs 2 times a day followed by [facility] for CPT holding inhaled Zak 28 days on/28 days off due to ?rash continue Flonase continue Astelin nasal spray nasal rinsing with saline Continue Airduo with Goodrx card for better pricing sputum cx bloodwork ARELIS ass needed F/U 3 months Orders: Orders 2 ANCA Vasculitides 05/16/24 J47.1 - Bronchiectasis with (acute) exacerbation, R21 - Rash and other nonspecific skin eruption Basic Metabolic Panel 05/16/24 J47.1 - Bronchiectasis with (acute) exacerbation, R21 - Rash and other nonspecific skin eruption CAROLIN Reflex Titer and Pattern 05/16/24 J47.1 - Bronchiectasis with (acute) exacerbation, R21 - Rash and other nonspecific skin eruption Erythrocyte Sedimentation Rate 05/16/24 J47.1 - Bronchiectasis with (acute) exacerbation, R21 - Rash and other nonspecific skin eruption Cyclic Citrullinated Peptide 05/16/24 J47.1 - Bronchiectasis with (acute) exacerbation, R21 - Rash and other nonspecific skin eruption Sputum Cult + Gram stain 05/16/24 J47.1 - Bronchiectasis with (acute) exacerbation Coding Level of Care Code Est Pt Level 4 (44821) Complex EM visit Add On G2211 Diagnoses Bronchiectasis with acute exacerbation J47.1 Bronchiectasis type: with acute exacerbation Asthma-COPD overlap syndrome J44.9 Chronic cough R05.3 Cough type: chronic Time Spent (min) 17
== END 2024-05-16 11:37 | disposition home or self-care (01) ==
PROVIDERS: PCP Nurse Practitioner Adult Health; Visit Provider Hospitalist
DX: J47.1 Bronchiectasis with (acute) exacerbation (principal); J44.9 Chronic obstructive pulmonary disease, unspecified; R05.3 Chronic cough
CPT/HCPCS: 99214; G2211

== ENCOUNTER → 2024-05-16 11:10 | Outpatient (BNVA) | payer MEDICARE, SELFPAY | PROVIDERS: PCP Nurse Practitioner Adult Health; Visit Provider Hospitalist | DX: J47.1 Bronchiectasis with (acute) exacerbation (principal); J44.9 Chronic obstructive pulmonary disease, unspecified; R05.3 Chronic cough | CPT/HCPCS: 99212 ==

== ENCOUNTER 2024-06-25 13:57 | Outpatient (AMB) | payer MEDICARE, SELFPAY ==
--- NOTE | 2024-06-25 14:04 | MHC.OFFVIS ---
Vital Signs 06/25/24 14:07 BP 122/64 Blood Pressure Location Lt brachial Position Sitting Pulse 86 Pulse Source Pulse Oximeter Pulse Oximetry (%) 97 Oxygen Delivery Method Room Air Intake Visit Reasons: Cough prod with yellow/green mucus Sports Instructor Required: No County Judge: County Judge offered & declined Accompanied by: Self / Same As Patient Allergies atorvastatin Adverse Reaction (Severe, Verified 06/25/24 14:05) muscle aches simvastatin Adverse Reaction (Severe, Verified 06/25/24 14:05) Muscles Aches Medication List - Last Reconciled 06/25/24 by Katlyn Bro LPN albuterol sulfate 90 mcg/actuation 2 inhalations inhalation Q6H PRN 30 days azelastine 2 sprays intranasal BID 30 days cholecalciferol (vitamin D3) 25 mcg PO DAILY coenzyme Q10 (Ultra CoQ10) 75 mg PO DAILY flecainide 50 mg PO BID 90 days fluticasone propion-salmeterol 250-50 mcg/dose (Advair Diskus) 1 ea PO BID levalbuterol HCl 1.25 mg (3 mL) inhalation BID 30 days metoprolol succinate ER 12.5 mg (1/2 x 25 mg) PO DAILY 90 days nebulizers As directed rivaroxaban (Xarelto) 20 mg PO DAILY rosuvastatin 10 mg PO BEDTIME sodium chloride 3% 4 mL inhalation BID 30 days valsartan 160 mg PO DAILY HPI Comments Details: The patient is a 84-year-old woman with a known history of lifelong asthma. apparently back in October her respiratory symptoms got much worse with productive cough and green sputum. She was having hard time breathing with shortness of breath and likely wheezing. She was initially evaluated and was she was given a Z-Joshua. And then subsequent after that she was given some prednisone. She was asked to call back if she had any difficulties. Months past and she has not called back. However, her breathing has gotten where were then productive sputum yellowish in color. Sometimes it does gag her with coughing. on further questioning the patient usually gets worse in October. She does have a living space in the basement that this been a good amount of time in. No obvious mold. No birds or animals. 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 Nobody smokes in the house. We did look at her last chest x-ray from August 2011 that she had for her cardiac issues. The time of that that she had some tram tracking suggesting some bronchiectatic changes in the right base. She has not had a x-ray for does prolonged bronchitis. On exam she does have some coarse BS, end exhalation wheezing and bronchospastic cough. 01/23/2023 the patient is here for pulmonary follow-up visit. She has been complaining of a cough that is nonproductive in nature. Now for the last few months. Seems to be getting slightly better. The phlegm is yellowish in color. Initially she had a hard time sleeping because of the cough. This complained of sinusitis. The patient did try the nasal sprays but the nasal sprays cause a bleeding from the nose. Therefore she stopped them. She also has been using her inhalers with partial improvement of the symptoms. No significant wheezing on exam although she does have a productive cough. Will go and start her on a course of doxycycline to treat her for a lower respiratory infection. The patient also has been complaining of increased fatigue and daytime drowsiness. I did recommend she get a chest x-ray in 1-2 weeks. Will follow up with the results 07/26/2023 the patient is here for a pulmonary follow-up visit. She is still having hard time with her breathing and her cough. Apparently it got worse again. Now with yellowish greenish phlegm. Very tenacious difficult to expectorate. She goes to coughing spells moderate severity. She has concerned that she continues to have this chronic bronchitis issue. Seems that she has a baseline chronic bronchitis but this is an exacerbation at this time. No significant wheezing although she does have rhonchi in a very bronchospastic cough at this time. We were able to get a sputum specimen for culture. The patient was start low-dose prednisone and doxycycline. She does take flecainide so she does have limited options when it comes to antibiotics. She also was prescribed Augmentin over the fall and she did develop significant diarrhea and she had to stop it. Her last chest x-ray back over the summer was okay. If she has any worsening symptoms and does not respond to the therapy she will get a repeat x-ray. If the x-ray is not helpful then consider additional imaging studies suggest a CT scan of the chest and also and or bronchoscopy. 09/27/2023 the patient is here for a pulmonary follow-up visit. The patient overall has been feeling a little better. She still coughing the cough is still productive in nature. Although significantly better than before. She has been using her inhalers although her adverse no longer available she is taking the generic that she is concerned because is very expensive. We did talk about the GoodRx card and AirDuo and she can get that for better walker and I did give her a script for that. In the meantime for chronic bronchitis she did have a culture for strep pneumo and therefore we did vaccinated for that with the Prevnar 20 vaccine today. She was also treated with Augmentin. Therefore, will go ahead and request she start Daliresp to treat her chronic bronchitis with the hope that there was decrease the chest congestion. If she continues to be congested then we should send sputum to make sure that we completely eradicated the strep pneumo. Her chest x-ray was read as clear back over the summer 2022. If her symptoms persist she will come back and get another x-ray. Now the option to get a CT scan of chest and or a bronchoscopy for both diagnostic and therapeutic interventions. 01/31/2024 the patient is here for a pulmonary follow-up visit. She is due struggling with a cough. Productive in nature yellowish phlegm. Worse at nighttime. Moderate severity. The patient did have a visit back in September where we did give her Prevnar 20 vaccine and then we did treat her with doxycycline and also treated her where a with Augmentin for the strep pneumo lung infection that cultured in her sputum. She initially did feel better but then again now symptoms are worsening again. Will go ahead and give her Augmentin again for couple weeks and then get another culture to make sure is clear. She was supposed to get an x-ray. Will go ahead and requested at this time prior to her leaving. And then if still abnormal consider a CT scan of the chest and also consider bronchoscopy for therapeutic and diagnostic interventions. She has worried about a which still inside the house. At this point would still is off so therefore believe that is affecting her breathing right now. But indeed it can affect her breathing and caused irritation to the airways during the winter months. Will follow-up in a couple months. If she has any worsening symptoms she will call for an earlier assessment. 04/17/2024 the patient is here for a pulmonary follow-up visit. She is still struggling with breathing. She has had significant chest congestion. Suppurative airway disease. She did have a sputum culture done and was positive for Pseudomonas in addition to Haemophilus influenzae. She can not tolerate quinolones because she is on flecainide. Unfortunately. The patient ultimately had a CT scan of the chest which we personally reviewed demonstrating bilateral bronchiectasis some treating budding some mucus plugging. Based on the fact that she has bronchiectasis the patient was started on inhaled tobramycin 28 days on. She just completed 28 days. She feels like cough did get better. Although recently she started noticing increasing chest tightness and wheezing in addition to more chest congestion. We were able to get another sputum culture in the office. Unfortunately again she is on flecainide has limited antibiotic coverage. Will go ahead and treated with doxycycline for the possibility of recurrent Haemophilus and also will go ahead and give her some prednisone because she is having increased chest tightness and wheezing. Will continue to plan to continue the inhaled tobramycin 28 days on 20 days off. Although she did have some increased wheezing not sure if is related to the inhaled ZAK. We have to reassess when she restarts it. The other option 2 would be to consider bronchoscopy if the patient continues to be symptomatic for proper therapeutic cleaning of the airways assessing any airway disease or obstructions in addition to that making sure that we get the cultures. Therefore, go ahead and treat the patient now and consider bronchoscopy if the patient is no better. Also, will have the patient have some blood work including immune status to assess any potential etiology for her persistent lower respiratory infections. 05/16/2024 the patient is here for a pulmonary follow-up visit. The patient overall is doing well from a respiratory status. She developed a rash however. Mainly affecting her neck area her hands and also her feet and heels. She is not sure if is related to the ZAK or after that she did take some doxycycline or his related to anything else. Will go ahead and request blood work to assess for any connective tissue conditions that may be doing this specially with her sedimentation rate of 82. Will hold off on antibiotics at this time based on the symptoms in the findings. However, if her chest congestion does reoccur she is to provide additional sputum culture to see the Pseudomonas is still present so we can treated. I do not feel strongly that the rash is related to the inhaled tobramycin. If anything I believe it may be for ototoxicity from the doxycycline. Although was in her feet she had been wearing sandals start the time. The patient should be using her nebulizer for chest PT followed by the Acapella valve. We did review her last CT scan of the chest demonstrating the bronchiectatic changes mucus plugging she also has some small pulmonary nodules that are subcentimeter in size and will require a follow-up CT scan sometime in the spring of 2024. 06/25/2024 the patient is here for sick visit. She started developing worsening respiratory symptoms last week. Started complaining of productive cough yellowish phlegm. The cough was really significant were to the point that she has not been able to sleep at nighttime. She has taken [id number] medications with minimal relief. She started developing some cold sensation some chills. She has also felt fatigued. She was given a sick visit today. The patient so respiratory exam is fairly good just with diminished breath sounds. I do not appreciate any pneumonia. However, with the chills I want to make sure we cover her for lower respiratory infection. The patient does not have any wheezing at this time. Her cough is significantly she is having hard time sleeping. She needs a cough medicine. Will provide her some codeine cough medication that she can use at nighttime. If the patient is no better she will come in have an x-ray and call me. [facility] Medical History (Updated 06/25/24 @ 20:32 by Gagan Ratliff MD) Rash Bronchiectasis Pseudomonal pneumonia Abnormal chest x-ray Statin intolerance Essential hypertension Atherosclerotic cardiovascular disease PAF (paroxysmal atrial fibrillation) Non-rheumatic aortic stenosis Murmur, heart GERD (gastroesophageal reflux disease) Cough Asthma-COPD overlap syndrome Bronchitis Surgical History History of left knee replacement History of carpal tunnel release Family History Mother Breast cancer Father Heart attack Other Allergies Social History Comment: stiffness Patient Tobacco Use Status: Never used Tobacco Review of Systems Const Reports chills, Reports fatigue, Reports fever(s), Denies frequent falls, Denies weakness, Denies weight gain and Denies weight loss ENT Denies dizziness and Reports post nasal drip Card Denies chest pain, Denies leg edema, Denies lightheadedness, Denies palpitations, Denies dyspnea, Reports dyspnea on exertion, Denies orthopnea and Denies other (Loss of consciousness) Resp Denies change in phlegm color, Reports chest congestion, Reports cough, Denies dyspnea, Reports dyspnea on exertion and Denies wheezing GI Denies hematochezia and Denies change in bowel habits Musc Reports myalgias, Reports arthralgias, Denies muscle weakness, Denies numbness, Denies radiating pain into limb and Denies tingling Skin/Breast Reports erythema and Reports rash Neuro Denies dizziness, Denies frequent falls, Denies numbness, Denies tingling and Denies weakness Endo Reports fatigue and Denies palpitations Aller/Immun Denies wheezing Physical Exam Vital Signs: Last Vital Signs Pulse 86 06/25/24 14:07 BP 122/64 06/25/24 14:07 Pulse Ox 97 06/25/24 14:07 Oxygen Delivery Method Room Air 06/25/24 14:07 Const General: alert Neck Neck: Yes normal visual inspection, Yes full ROM and Yes no lymphadenopathy Chest Chest palpation & inspection: normal inspection of the chest Resp Effort & Inspection: no cough Auscultation: no rhonchi, no wheezes and diminished lung sounds Cardio Rate: regular rate Rhythm: regular rhythm Heart sounds: S1 normal heart sound present and S2 normal heart sound present GI Palpation (GI): Soft to palpation and nontender Auscultation: normal bowel sounds Skin General skin exam: rashes and/or lesions noted Assessment & Plan Assessment & Plan (1) Bronchiectasis: Code(s): J47.9 - Bronchiectasis, uncomplicated Category: Medical Qualifiers: Bronchiectasis type: with acute exacerbation Qualified Code(s): J47.1 - Bronchiectasis with (acute) exacerbation (2) Asthma-COPD overlap syndrome: Code(s): J44.9 - Chronic obstructive pulmonary disease, unspecified Category: Medical (3) Cough: Code(s): R05 - Cough Category: Medical Qualifiers: Cough type: chronic Qualified Code(s): R05.3 - Chronic cough (4) Bronchopneumonia: Code(s): J18.0 - Bronchopneumonia, unspecified organism Category: Medical Plan nebs 2 times a day followed by [facility] for CPT holding inhaled Zak 28 days on/28 days off due to ?rash continue Flonase continue Astelin nasal spray nasal rinsing with saline Continue Airduo with Goodrx card for better pricing sputum cx bloodwork ARELIS ass needed F/U 3 months Orders: Orders XR chest 2V Today J47.1 - Bronchiectasis with (acute) exacerbation Medications: New codeine-guaifenesin 10-100 mg/5 mL 10 mL PO Q6H PRN 300 mL 0RF cough 10 days amoxicillin-pot clavulanate 875-125 mg 1 tab PO BID 20 tabs 0RF 10 days doxycycline hyclate 100 mg PO BID 20 caps 0RF 10 days Coding Level of Care Code Est Pt Level 4 (30035) Diagnoses Bronchiectasis with acute exacerbation J47.1 Bronchiectasis type: with acute exacerbation Asthma-COPD overlap syndrome J44.9 Chronic cough R05.3 Cough type: chronic Bronchopneumonia J18.0 Time Spent (min) 16
[2024-06-25 14:07] VITALS: BP 122/64; PULSE 86; O2SAT 97
== END 2024-06-25 15:51 | disposition home or self-care (01) ==
PROVIDERS: PCP Nurse Practitioner Adult Health; Visit Provider Hospitalist
DX: J47.1 Bronchiectasis with (acute) exacerbation (principal); J44.9 Chronic obstructive pulmonary disease, unspecified; R05.3 Chronic cough; J18.0 Bronchopneumonia, unspecified organism
CPT/HCPCS: 99214

== ENCOUNTER → 2024-06-25 13:57 | Outpatient (BNVA) | payer MEDICARE, SELFPAY | PROVIDERS: PCP Nurse Practitioner Adult Health; Visit Provider Hospitalist | DX: J44.9 Chronic obstructive pulmonary disease, unspecified (principal); J47.1 Bronchiectasis with (acute) exacerbation; J18.0 Bronchopneumonia, unspecified organism; R05.3 Chronic cough | CPT/HCPCS: 99212 ==

== ENCOUNTER 2024-08-20 10:57 | Outpatient (REF) | payer MEDICARE, SELFPAY ==
--- OUTSIDE RECORDS SUMMARY | 2024-08-20 13:57 | XMS_ITS ---
[facility] Organization [facility] Address [address] [place] [address] Care Team Providers Care Pump Mechanic Name Role Phone Luis Alfredo BRDOY, Yareli Primary Care Provider Unava ilable Black, Lani Unavailable [phone] Allergies No Known Allergies REASON FOR VISIT Painful nail(s) aggrevated by shoes causing difficulty standing/walking, Toe Pain, Possible Infection Medications Medication SIG (Take, Route, Frequency, Duration) Notes Start Date End Date Status Ciclopirox Not-Takin g Kenalog Not-Taking Multivitamin Not-Samuel ing Tolnaftate 1 % 1 application Externally Once a day for 30 days 07/05/2021 Not-Taking Urea 40 % 1 application to affected area Externally Twice a day for 30 days 07/12/2021 Not-Taking Tubular compression stockings as directed wear daily 10/11/2021 Activ e zzzCompression Stockings 20-30mm Hg . . . for . Active Biofreeze Cool The Pain XL 5 % 1 patch as needed Externally Three times a day 10/05/2023 Active Ketoconazole 2 % 1 application Externally Once a day for 30 days 12/01/2022 Not-Taking Betamethasone Dipropionate 0.05 % 1 application to affected area Externally Once a day for 30 days 02/25/2019 Not-Taking Advair Diskus Active Flecainide Acetate 50 MG as directed Ora lly twice a day Active Metoprolol Succinate ER Active Rosuvastatin Calcium Active Xarelto 25 Active Losartan Potassium 100 MG 1 tablet Orall y Once a day for 30 day(s) Active Calcium Not-Taking LamISIL 250 MG 1 tablet Orally Once a day for 90 days 02/28/2014 Not-Taking Doxycycline Not-Taki ng Clindamycin HCl 300 MG 1 capsule Orally every 12 hrs for 7 day(s) 05/06/2024 Active Ciclopirox Olamine N ot-Taking Ketoconazole 2 % 1 application to affected area Externally Once a day for 14 days 05/15/2017 Not-Taking Ciclopirox Olamine 0.77% external Apply to effected areas twice a day for 30 days 11/02/2016 Not-Taking Ketoconazole 2 % 1 application to affected area Externally Once a day for 30 days 11/02/2016 Not-Taking vitamin Not-Taking Lisinopril 5 MG 1 tablet Orally Once a day Not-Taking zzzCompression Stockings 20-30mm Hg . . . for . Not-Taking Skin Prep Wipes - as directed 06/01/2020 Not-Taking Ciclopirox Olamine 0.77% external Apply to effected areas twice a day for 30 days 06/01/2020 Not-Taking Betamethasone Dipropionate Not-Taking Roflumilast 250 MCG Oral for 14 Not-Taking amLODIPine Besylate 5 MG 1 tablet Orally Once a day for 30 day(s) Not-Taking Social History Tobacco Use: Social History Observation Description Date Details (start date - stop date) Never Smoker NA - NA Tobacco Use/Smoking Question Answer Notes Are you a: nonsmoker Additional Findings: Tobacco Non-User Current no n-smoker Tobacco use other than smoking: Question Answer Notes Are you an other tobacco user? No Problems Problem Type SNOMED Code ICD Code Onset Dates Problem Status W/U Status Risk Notes Problem [id number] Pressure injury of right foot, unstageable (L89.890) Active confirmed Vital Signs Height 5 ft 3 in in 05/06/2024 Weight 166 lbs 05/06/2024 BMI 29.4 kg/m2 05/06/2024 Procedures Procedure Date Ordered Date Performed Result Body Sit e 80849-EQUGYYO NAIL, 6 OR MORE 05/06/2024 N/A 27647 I&D ABSCESS- SIMPLE,SINGLE 05/06/2024 N/A Encounters Encounter Location Date Provider Diagnosis [facility] [address] [place] [address] 05/06/2024 Lani Ricketts Tinea unguium B35.1 ; Tinea pedis of both feet B35.3 ; Pain in right toe(s) M79.674 ; Pain in left toe(s) M79.675 ; Abscess of left foot L02.612 ; Pressure injury of left foot, stage 1 L89.891 and Pressure injury of right foot, stage 1 L89.891 Assessments Encounter Date Diagnosis (ICD Code) Assessment Notes Treatment Notes Treatment Clinical Notes Section Notes 05/06/2024 Tinea unguium (ICD-10 - B35.1) 05/06/2024 Tinea pedis of both feet (ICD-10 - B35.3) 05/06/2024 Pain in right toe(s) (ICD-10 - M79.674) 05/06/2024 Pain in left toe(s) (ICD-10 - M79.675) 05/06/2024 Abscess of left foot (ICD-10 - L02.612) Patient Educated with: WOUND CARE INSTRUCTIONS.p df (WOUND CARE INSTRUCTIONS.p df) 05/06/2024 Pressure injury of left foot, stage 1 (ICD-10 - L89.891) Response to treatment,Respo nse to treatment - worse Patient Educated with: WOUND CARE INSTRUCTIONS.p df (WOUND CARE INSTRUCTIONS.p df) 05/06/2024 Pressure injury of right foot, stage 1 (ICD-10 - L89.891) Response to treatment worse 05/06/2024 Other Plan Of Treatment Medication Medication Name Sig Start Date Stop Date Notes Clindamycin HCl 300 MG 1 capsule Orally every 12 hrs for 7 day(s) 05/06/2024 Treatment Notes Assessment Notes Abscess of left foot Patient Educated wi th: WOUND CARE INSTRUCTIONS.pdf (WOUND CARE INSTRUCTIONS.pdf) Pressure injury of left foot, stage 1 Pa tient Educated with: WOUND CARE INSTRUCTIONS.pdf (WOUND CARE INSTRUCTIONS.pdf) Pending Test Test Name Order Date *Wound Culture 05/06/2024 99248-[id number] NAIL, 6 OR MORE 05/06/2024 70395 I&D ABSCESS- SIMPLE,SINGLE 024 Next Appt Details Follow Up: 3-4w, Reason: Provider Name:Lani Ricketts , 08/26/2024 10:45:00 AM, [address] [place], [address], Procedure Notes * Category Sub-Category Detail Notes I & D Procedure: ABSCESS: Due to presence of unrelieved pain despite conservative measures taken, an Incision and Drainage was recommended. The area located as per exam was prepped with betadine/alcohol, The area was incised with use of sterile 15 blade or sterile tissue nipper. The wound, once opened, was drained of approximately ( .05) cc purulent fluid, and debrided of devitilized tissue using same instramentation. A dry sterile dressing with antibiotic ointment was applied. The patient tolerated the procedure well and related a decrease in symptoms upon discharge. Local wound care instructions were discussed and dispensed to the patient (25105) Location medial left heel Anesthesia was accomplished TOP ICALLY with Lidocaine Hydrochloride Jelly 2 percent, Debride Nail 6-10 Nail debridement Nail debridem ent performed extensively to reduce/remove overall nail length, girth, thickness, subungual debris, and necrotic tissue, by manual and electrical means through the use of a nail nipper and/or dremel, to more viable healthy nail plate or bed tissue 1-5. Silver nitrate used for any petechial bleeding as necessary. Patient chooses, no pharmaceutical tx (38268) Progress Notes * Lainey MORRELL RDOB:[birth year] (84 yo F)Acc No.[id number]:05/06/2024 Progress Note Patient:?Lainey Morrell R Provider:?Lani Ricketts DPM :1940???Age:84 Y???Sex:Female D ate:05/06/2024 Address:[address] [place], [place] [id number] Pcp:Yareli Lobato NP Subjective: * Chief Complaints: * ???Painful nail(s) aggrevate d by shoes causing difficulty standing/walkingToe PainPossible Infection * HPI: ???Painful Nails:?Pt States Last PCP Visit:?Date:?12/11/2023 ???Toe pain:?Nature:?tenderness , discoloration , inflammed.?Location:?, Tip , Great toe , B/L feet.?Duration:?, several weeks.?Onset/Cause:?sudden , denies trauma.?Course:?, worse.?Aggravated by:?any pressure, shoes.?Treatments:?rest/alter normal daily activity, change in shoes , soaks , inserts.?Possible Infection:?Treatments:?, none.? * ROS:?General/Constitutional:?Nausea?denies.?Vomiting?denies.?Hunger Thirst?denies.?Loss appetite?denies.?Chills?denies.?Fatigue?denies.?Fever?denies.?Night Sweats?denies.?Unexplained weight loss?denies.?Unexplained weight gain?denies.?HEENTM:?Dentures?denies.?Dizziness?denies.?Glasses/contacts?admits.?Retinopathy?de nies.?Blurred/double vision?denies.?TMJ?denies.?Discharge/drainage?denies.?Implants?denies.?Sore throat?denies.?Dental implants?denies.?Hard of hearing ?denies.?Difficulty chewing/swallowing/speaking?denies.?Nose bleeds?denies.?Sore mouth?denies.?Respiratory:?On Oxygen?denies.?Pneumonia/pleurisy?denies.?Bronchitis?denies.?Emphysema?denies.?C oughing?denies.?Cough blood?denies.?Shortness of breath?denies.?Wheezing?denies.?Cardiovascular:?Pacemaker?denies.?MVP?denies.?WPW?denies.?CHF?denies.?Heart attack?denies.?Septal defect?denies.?Rapid beat?denies.?Chest pain ?denies.?Atrial Fib.?denies.?Murmur/Palpitations?denies.?Gastrointestinal:?Hemorrhoids?denies.?Stomach/Abdominal pain?denies.?Dark blood stool?denies.?Irritable bowel ?denies.?Constipation?denies.?Diarrhea?denies.?Hematology:?Swelling?admits.?Clots?denies.?Varicose Veins?denies.?Bruising?denies.?Bleeding problem?denies.?Genitourinary:?Blood urine?denies.?Frequent/Painfu/urination/bladder control?denies.?Kidney stones?denies.?Infection (UTI)?denies.?Nephropathy?denies.?sex trans dis (STD)?denies.?Prostate?denies.?Musculoskeletal:?Hammertoes?admits.?Bunions?denies.?Back Pain?denies.?Muscle Cramps/ Resting?denies.?Muscle cramps / walking?denies.?Generalized aches and pains?denies.?Weakness?denies.?Integ.:?Mcmanus?denies.?Scars?denies.?Corns/calluses?admits.?Ingrown nails?denies.?Painful nails?admits.?Open Sores?denies.?Rashes?admits.?Neurologic:?Difficulty sleeping?denies.?Brain disorder?denies.?Numbness?denies.?Balance trouble?denies.?Confusion?denies.?Fainting/blackouts?denies.?Tingling?denies.?Tr emors?denies.? * Medical History:? * Surgical History:?appendecto my 1957carpal tunnel release 04/10/2017Left Knee replacement 02/02carpal tunnel surgery 01/04 * Hospitalization/Major Diagno stic Procedure:?Denies Past Hospitalization * Family History:?Mother: dece ased, foot problems, diagnosed with Family history of arthritis, Unspecified essential hypertension, Other malignant neoplasm of unspecified site.?Father: , diagnosed with Unspecified heart disease.? * Social History:?Tobacco Use:?Tobacco Use/Smoking?Are you a:?nonsmoker ?Additional Findings: Tobacco Non-User?Current non-smoker ?Tobacco use other than smoking?Are you an other tobacco user??No ???Miscellaneous:?Caffeine: yes, 2 cups per day. ?Children: yes. ?Exercise: yes, walking. ?Marital status: . 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 * Medications:?TakingLosartan Potassium 100 MG Tablet 1 tablet Orally Once a dayAdvair Diskus Flecainide Acetate 50 MG Tablet as directed Orally twice a dayMetoprolol Succinate ER Rosuvastatin Calcium Xarelto 25 Tubular compression stockings as directed wear dailyzzzCompression Stockings 20-30mm Hg 1 pair closed toe- knee high . . .Biofreeze Cool The Pain XL 5 % Patch 1 patch as needed Externally Three times a dayTaking Losartan Potassium 100 MG Tablet 1 tablet Orally Once a dayTaking Advair Diskus Taking Flecainide Acetate 50 MG Tablet as directed Orally twice a dayTaking Metoprolol Succinate ER Taking Rosuvastatin Calcium Taking Xarelto 25 Taking Tubular compression stockings as directed wear dailyTaking zzzCompression Stockings 20- 30mm Hg 1 pair closed toe- knee high . . .Taking Biofreeze Cool The Pain XL 5 % Patch 1 patch as needed Externally Three times a dayNot-Taking/PRNDoxycycline Ketoconazole 2 % Cream 1 application Externally Once a dayBetamethasone Dipropionate 0.05 % Cream 1 application to affected area Externally Once a dayCiclopirox Kenalog Multivitamin Tolnaftate 1 % Cream 1 application Externally Once a dayUrea 40 % Cream 1 application to affected area Externally Twice a dayRoflumilast 250 MCG Tablet Oral amLODIPine Besylate 5 MG Tablet 1 tablet Orally Once a dayLisinopril 5 MG Tablet 1 tablet Orally Once a dayzzzCompression Stockings 20-30mm Hg 1 pair closed toe- knee high . . .Skin Prep Wipes - Miscellaneous as directed Ciclopirox Olamine 0.77% Cream external Apply to effected areas twice a dayBetamethasone Dipropionate Ketoconazole 2 % Cream 1 application to affected area Externally Once a dayCiclopirox Olamine 0.77% Cream external Apply to effected areas twice a dayKetoconazole 2 % Cream 1 application to affected area Externally Once a dayvitamin Ciclopirox Olamine Calcium LamISIL 250 MG Tablet 1 tablet Orally Once a dayMedication List reviewed and reconciled with the patientNot-Taking/PRN Doxycycline Not-Taking/PRN Ketoconazole 2 % Cream 1 application Externally Once a dayNot-Taking/PRN Betamethasone Dipropionate 0.05 % Cream 1 application to affected area Externally Once a dayNot-Taking/PRN Ciclopirox Not-Taking/PRN Kenalog Not-Taking/PRN Multivitamin Not-Taking/PRN Tolnaftate 1 % Cream 1 application Externally Once a dayNot-Taking/PRN Urea 40 % Cream 1 application to affected area Externally Twice a dayNot-Taking/PRN Roflumilast 250 MCG Tablet Oral Not-Taking/PRN amLODIPine Besylate 5 MG Tablet 1 tablet Orally Once a dayNot-Taking/PRN Lisinopril 5 MG Tablet 1 tablet Orally Once a dayNot- Taking/PRN zzzCompression Stockings 20-30mm Hg 1 pair closed toe- knee high . . .Not- Taking/PRN Skin Prep Wipes - Miscellaneous as directed Not-Taking/PRN Ciclopirox Olamine 0.77% Cream external Apply to effected areas twice a dayNot-Taking/PRN Betamethasone Dipropionate Not-Taking/PRN Ketoconazole 2 % Cream 1 application to affected area Externally Once a dayNot-Taking/PRN Ciclopirox Olamine 0.77% Cream external Apply to effected areas twice a dayNot-Taking/PRN Ketoconazole 2 % Cream 1 application to affected area Externally Once a dayNot-Taking/PRN vitamin Not-Taking/PRN Ciclopirox Olamine Not-Taking/PRN Calcium Not-Taking/PRN LamISIL 250 MG Tablet 1 tablet Orally Once a dayMedication List reviewed and reconciled with the patient * Allergies:?N.K.D.A.yes[Aller gies Verified] Objective: * Vitals:?Ht: 5 ft 3 in, Wt: 1 66, BMI: 29.4, Shoe size: 9.5, Wt-k.3 kg. * Examination: ???General Examination: ?GENERAL APPEARANCE:?Reveals a pleasant, alert, well nourished, well- developed, well hydrated individual, who demonstrates proper attention to hygiene/body habitus, and is in no acute distress , Denies fever, chills, malaise, lymphadenopathy.?Nails: ?NAILS are:?Elongated, overgrown, dystrophic, lytic, greater than 3mm thick, discolored and friable with crumbly malodorous subungual debris, with pain on palpation , 1-5 B/L.?Orthopedic: ?BUNION:?Medially prominent 1st MPJ , ( + ) Hallux Interphalangeus , ( + ) Hallux extensus, (+) Pain on palpation , inflammation present , erythema at exostosis.at 60 percent LESS keratosis present. .?FOOTWEAR:? shoe gear properties exacerbate patients foot/toe deformity.?Dermatologic: ?SKIN FINDINGS:?Skin exam reveals Keratotic lesion(s) located at distal tip of TA dried blood evident, Skin shows sign(s) of, severely painful abscess of approximate size at ( 4 ) mm medial left heel , Skin shows sign(s) of, INCREASED erythema, scaling, in a moccasin fashion, no fissure(s) present, vesicles, inflammation, erythema, pruritus.?Vascular: ?DP PULSES(B):?2/4, B/L.?PT PULSES(B):?2/4, B/L.? Assessment: * Assessment: 1.?Tinea unguium - B35.1?2.? Tinea pedis of both feet - B35.3 (Primary)?3.?Pain in right toe(s) - M79.674?4.?Pain in left toe(s) - M79.675?5.?Abscess of left foot - L02.612, Painful, Resistant to conservative treatment?6.?Pressure injury of left foot, stage 1 - L89.891, Response to treatment,Response to treatment - worse?7.?Pressure injury of right foot, stage 1 - L89.891, Response to treatment worse? Plan: * Treatment: 2.?Tinea unguium?Procedure: [id number] NAIL, 6 OR MORE 3.?Abscess of left foot?LAB: *Wound Culture ?Procedure: 27616 I&D ABSCESS- SIMPLE,SINGLE Notes: Patient Educated with: WOUND CARE INSTRUCTIONS.pdf (WOUND CARE INSTRUCTIONS.pdf)?? 4.?Pressure injury of left f oot, stage 1? Notes: Patient Educated with: WOUND CARE INSTRUCTIONS.pdf (WOUND CARE INSTRUCTIONS.pdf)?? * Procedures:?Debride Nail 6-10:?Nail debridement?Nail debridement performed extensively to reduce/remove overall nail length, girth, thickness, subungual debris, and necrotic tissue, by manual and electrical means through the use of a nail nipper and/or dremel, to more viable healthy nail plate or bed tissue 1-5. Silver nitrate used for any petechial bleeding as necessary. Patient chooses, no pharmaceutical tx (64858).?I & D:?Procedure:?ABSCESS: Due to presence of unrelieved pain despite conservative measures taken, an Incision and Drainage was recommended. The area located as per exam was prepped with betadine/alcohol, The area was incised with use of sterile 15 blade or sterile tissue nipper. The wound, once opened, was drained of approximately ( .05) cc purulent fluid, and debrided of devitilized tissue using same instramentation. A dry sterile dressing with antibiotic ointment was applied. The patient tolerated the procedure well and related a decrease in symptoms upon discharge. Local wound care instructions were discussed and dispensed to the patient (67715).?Location?medial left heel.?Anesthesia?was accomplished TOPICALLY with Lidocaine Hydrochloride Jelly 2 percent, ?.? * Procedure Codes:?00762 DRAIN AGE OF SKIN ABSCESS, Modifiers: XS 57568 DEBRIDE NAIL, 6 OR MORE, Modifiers: XS * Preventive Medicine:? ??Counseling:?Discussion:?-14: Office or other outpatient visit for the evaluation and management of an established patient, which required a medically appropriate history and/or examination and MODERATE level of DECISION MAKING for: 1 OR MORE CHRONIC PROBLEM(S) THATS WORSENING, 2 STABLE CHRONIC PROBLEMS, A NEWLY DIAGNOSED PROBLEM WITH UNCERTAIN PROGNOSIS, AN ACUTE COMPLICATED INJURY WITH MULTIPLE TREATMENT OPTIONS, OR AN ACUTE PROBLEM WITH ACCOMPANYING SYSTEMIC SYMPTOMS, THAT POSE(S) A MODERATE RISK OF MORBIDITY. THIS CONDITION MAY ALSO INCLUDE RX DRUG MANAGEMENT, OR A DECISON FOR MINOR SURGERY. The visit on the day of the encounter encompassed interpreting the data and educating the patient as to the nature of their condition, treatment options available according to their individual PMH, meds, allergies, and overall health/living conditions, as well as any potential risks or complications that may occur from a failure to adhere to, and participate in, the recommended course of therapy. The discussion included a complete verbal, and/or written explanation of the examination results, any x-rays taken, the proposed diagnosis, and outline of the treatment plan. A schedule for future care needs was also explained. The patient verbalized an understanding of the instructions at this time and agreed to be an active participant in their treatment. If the patient should think of any questions or concerns after the visit, I have encouraged the patient to call the office.?Tinea Pedis:?Discussed the multiple treatment options that we have used in the past. Pt has had the best results with oral Lamisil however due to present medications' pt is not a candidate for the oral medication. Pt has an upcoming visit with dermatology, and she will speak to them about treatment. Discussed with pt prevent stages as well as present TX - continue with cream and wear socks with shoes.?Ulcer:?PREVENTIVE STRATEGIES were reviewed with the patient to avoid recurrent ulceration. A set of verbal and written instructions regarding proper daily diabetic footcare techniques was discussed and dispensed. The patient is to pay close attention to skin hydration by maintaining proper moisturization through correct water consumption and consistent application of skin lotions/creams/ointments. They are also to perform regular visual and tactile foot inspections for any interruption in skin integrity including cracks, open lesions, and immediately report to the office any sign of infection such as redness/malodor/drainage/swelling. We discussed and recommended practices and procedures regarding regular shoe and insert evaluations for the presence of foreign bodies as well as for any irregular shoe or insert wear. We reinforced the importance for the patient to adhere to wearing their orthopedic shoes and pressure accommodative innersoles whenever walking. We stressed the significant value for the patient to remain consistent concerning their medically prescribed diet, participate in regular nonweight-bearing exercise (seated weights, exercise bike, or swimming), and keep their scheduled at risk foot care podiatric appointments. We also reviewed the possible role for additional Rx foot/leg bracing or surgical intervention when/if medically warranted- Discussed present ffotwear with pt- friction being applied to sánchez tips.? * Follow Up:?3-4w * Images: * Sign off status: Completed true * Provider:?Lani Ricketts DPM Date:?2023 Generated for Violet desai/Sylvester/Dyllan on:?08/20/2024 01:56 PM EST History and Physical Notes * HPI (History of Present Illness) Category Sub-Category Detail Notes Category Not es Toe pain Nature: tenderness , discoloration , inflammed Location: , Tip , Great toe , B/L feet Duration: , several weeks Onset/Cause: sudden , denies trau ma Course: , worse Aggravated by: any pressure, shoes Treatments: rest/alter normal da juan activity, change in shoes , soaks , inserts Painful Nails Pt States Last PCP Visit: Date:: 12/11/2023 Possible Infection Treatments: , none Examination Category Sub-Category Detail Notes Category Not es Dermatologic SKIN FINDINGS: Skin exam reveal s Keratotic lesion(s) located at distal tip of TA dried blood evident, Skin shows sign(s) of, severely painful abscess of approximate size at ( 4 ) mm medial left heel , Skin shows sign(s) of, INCREASED erythema, scaling, in a moccasin fashion, no fissure(s) present, vesicles, inflammation, erythema, pruritus Orthopedic BUNION: Medially promine nt 1st MPJ , ( + ) Hallux Interphalangeus , ( + ) Hallux extensus, (+) Pain on palpation , inflammation present , erythema at exostosis.at 60 percent LESS keratosis present. FOOTWEAR: shoe gear properties exacerbate patients foot/toe deformity General Examination GENERAL APPEARANCE: Reveals a pleasant, alert, well nourished, well-developed, well hydrated individual, who demonstrates proper attention to hygiene/body habitus, and is in no acute distress , Denies fever, chills, malaise, lymphadenopathy Vascular DP PULSES (B): 2/4, B/L PT PULSES (B): 2/4, B/L Nails NAILS are: Elongated, overg rown, dystrophic, lytic, greater than 3mm thick, discolored and friable with crumbly malodorous subungual debris, with pain on palpation , 1-5 B/L
--- OUTSIDE RECORDS SUMMARY | 2024-08-20 13:57 | XMS_ITS ---
Author Organization [facility] Address [address] [place] [address] Care Team Providers Care Librarian School Name Role Phone Luis Alfredo SPANISH INTERPRETER, Yareli Primary Care Provider Unava ilable Jamarcus, Lani Unavailable [phone] REASON FOR VISIT Bako Encounters Encounter Location Date Provider Diagnosis [address] [address] 05/06/2024 Lani Ricketts Plan Of Treatment Next Appt Details Provider Name:Lani Ricketts , 08/26/2024 10:45:00 AM, [address] [place], [address], Progress Notes * Lainey MORRELL RDOB:[birth year] (84 yo F)Acc No.[id number]:05/06/2024 Patient:?Lainey Morrell :1940???Age:84 Y???Sex:Female Address:[address] [place] [address], [address] * true * Date:? Generated for Printi ng/Sylvester/eTransmitting on:?08/20/2024 01:56 PM EST
--- OUTSIDE RECORDS SUMMARY | 2024-08-20 13:57 | XMS_ITS | Patient Health Record ---
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 Name Role Phone Luis Alfredo BRODY, Yareli Primary Care Provider Unava ilable Black, Lani Unavailable [phone] Allergies No Known Allergies Results Component Value Reference Range Notes X ray : Foot, left 3V Reviewed date:10/05/2023 01:45:20 PM Interpretation:See Examination above Performing Lab: Notes/Report: See Examination above Reason For Referral No Information Medications Medication SIG (Take, Route, Frequency, Duration) Notes Start Date End Date Status Doxycycline Not-Taki ng Lisinopril 5 MG 1 tablet Orally Once a day Not-Taking LamISIL 250 MG 1 tablet Orally Once a day for 90 days 02/28/2014 Not-Taking amLODIPine Besylate 5 MG 1 tablet Orally Once a day for 30 day(s) Not-Taking Roflumilast 250 MCG Oral for 14 Not-Taking Urea 40 % 1 application to affected area Externally Twice a day for 30 days 07/12/2021 Not-Taking Tolnaftate 1 % 1 application Externally Once a day for 30 days 07/05/2021 Not-Taking Multivitamin Not-Samuel ing Kenalog Not-Taking Ciclopirox Not-Takin g Betamethasone Dipropionate 0.05 % 1 application to affected area Externally Once a day for 30 days 02/25/2019 Not-Taking Ketoconazole 2 % 1 application Externally Once a day for 30 days 12/01/2022 Not-Taking Losartan Potassium 100 MG 1 tablet Orall y Once a day for 30 day(s) Active Clindamycin HCl 300 MG 1 capsule Orally every 12 hrs for 7 day(s) 05/06/2024 Active Biofreeze Cool The Pain XL 5 % 1 patch as needed Externally Three times a day 10/05/2023 Active Calcium Not-Taking zzzCompression Stockings 20-30mm Hg . . . for . Active Ciclopirox Olamine N ot-Taking Tubular compression stockings as directed wear daily 10/11/2021 Activ e vitamin Not-Taking Xarelto 25 Active Ketoconazole 2 % 1 application to affected area Externally Once a day for 30 days 11/02/2016 Not-Taking Rosuvastatin Calcium Active Ciclopirox Olamine 0.77% external Apply to effected areas twice a day for 30 days 11/02/2016 Not-Taking Metoprolol Succinate ER Active Ketoconazole 2 % 1 application to affected area Externally Once a day for 14 days 05/15/2017 Not-Taking Flecainide Acetate 50 MG as directed Ora lly twice a day Active Betamethasone Dipropionate Not-Taking Advair Diskus Active Ciclopirox Olamine 0.77% external Apply to effected areas twice a day for 30 days 06/01/2020 Not-Taking Skin Prep Wipes - as directed 06/01/2020 Not-Taking zzzCompression Stockings 20-30mm Hg . . . for . Not-Taking Immunizations Vaccine Route Administration Date Status Comme nts COVID-19 Pfizer BioNTech Vaccine Unknown 05/07/2021 Administered 1st 10/14/20 2nd 11/04/20 Social History Tobacco Use: Social History Observation Description Date Details (start date - stop date) Never Smoker NA - NA Tobacco Use/Smoking Question Answer Notes Are you a: nonsmoker Additional Findings: Tobacco Non-User Current no n-smoker Alcohol Screen Question Answer Notes Did you have a drink containing alcohol in the p ast year? No Points 0 Interpretation Negative Tobacco use other than smoking: Question Answer Notes Are you an other tobacco user? No Problems Problem Type SNOMED Code ICD Code Onset Dates Problem Status W/U Status Risk Notes Problem Acquired hammer toe of right foot (1503703685730552) Other hammer toe(s) (acquired), right foot (M20.41) Active confirmed Problem Acquired hammer toe of left foot (8726255941462993) Other hammer toe(s) (acquired), left foot (M20.42) Active confirmed Problem Ulcer of toe (190754845) Non-pressure chronic ulcer of other part of right foot limited to breakdown of skin (L97.511) Active confirmed Problem Ulcer of toe (784339306) Non-pressure chronic ulcer of other part of left foot limited to breakdown of skin (L97.521) Active confirmed Problem Chronic ulcer of foot (477250882) 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) Active confirmed Problem Nonstageable pressure ulcer of left foot (69190797765151546) 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) Active confirmed Problem Localized, primary osteoarthritis of the ankle and/or foot (999331362) Primary osteoarthritis, right ankle and foot (M19.071) Active confirmed Problem Localized, primary osteoarthritis of the ankle and/or foot (303544288) Primary osteoarthritis, left ankle and foot (M19.072) Active confirmed Problem Acquired hammer toe of left foot (6681452196817493) Other hammer toe(s) (acquired), left foot (M20.42) Active confirmed Problem Arthritis (0220305) Arthritis (M19.90) Active confirmed Problem 08538194938891 Pressure ulcer, heel, left, unstageable (L89.620) Active confirmed Problem Acquired hallux valgus (67205006) 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 confirmed Response to treatment - Improvement Problem 52863771 Ulcer of left heel and midfoot, limited to breakdown of skin (L97.421) Active confirmed Problem Ulcer of toe of right foot (disorder) (34359573962827610) Skin ulcer of toe of right foot, limited to breakdown of skin (L97.511) Active confirmed Response to treatment Problem 012135155 Pressure ulcer, ankle, left, unstageable (L89.520) Active confirmed Problem 59101406212820606 Skin ulcer of left heel, limited to breakdown of skin (L97.421) Active confirmed Problem 414329831 Skin ulcer of right heel, limited to breakdown of skin (L97.411) Active confirmed Problem 118665824501135 Pressure injury of right foot, unstageable (L89.890) Active confirmed Problem Localized, primary osteoarthritis of the ankle and/or foot (289165172) Arthritis of joint of lesser toe, left (M19.072) Active confirmed Problem Pressure injury of left foot stage I (disorder) (420496629721725) Pressure injury of left foot, stage 1 (L89.891) Active confirmed Response to treatment,Re sponse to treatment - worse Problem Ulcer of toe of left foot (disorder) (40507766546253622) Skin ulcer of toe of left foot, limited to breakdown of skin (L97.521) Active confirmed Response to treatment Problem Pressure injury of right foot stage I (disorder) (807423562584718) Pressure injury of right foot, stage 1 (L89.891) Active confirmed Response to treatment worse Vital Signs Blood pressure diastolic 75 mm Hg 05/30/2024 Height 5 ft 3 in in 05/30/2024 Blood pressure systolic 128 mm Hg 05/30/2024 Weight 169 lbs 05/30/2024 BMI 29.93 kg/m2 05/30/2024 Procedures Procedure Date Ordered Date Performed Result Body Sit e 96697-HXWYGMB NAIL, 6 OR MORE 10/05/2023 N/A 30065- Debride <25 sq cm 12/14/2023 N/A 48578-WPCNNBI NAIL, 6 OR MORE 01/11/2024 N/A 71744-ISGLECP NAIL, 6 OR MORE 05/06/2024 N/A 75334 I&D ABSCESS- SIMPLE,SINGLE 05/06/2024 N/A 26827- Debride <25 sq cm 05/30/2024 N/A Encounters Encounter Location Date Provider Diagnosis [facility] [address] [address] 10/05/2023 Lani Black Tinea unguium B35.1 ; Arthritis M19.90 ; Pain in right toe(s) M79.674 ; Pain in left toe(s) M79.675 ; Acquired hallux extensus, left M20.5X2 ; Hallux varus, left M20.32 and Hypertrophy of bone of left foot M89.[address] [facility] [address] 11/08/2023 Lani Black Pain in left toe(s) M79.675 ; Acquired hallux interphalangeus of left foot M20.12 and Keratoma L57.[address] [address] 12/14/2023 Lani Black Pressure injury of l eft foot, stage 1 L89.891 ; Acquired hallux interphalangeus of left foot M20.12 and Pain in left toe(s) M79.[address] [address] 01/11/2024 Lani Black Tinea unguium B35.1 ; Pain in right toe(s) M79.674 ; Pain in left toe(s) M79.675 and Acquired hallux interphalangeus of left foot M20.[address] [address] 05/06/2024 Lani Black Tinea unguium B35.1 ; Tinea pedis of both feet B35.3 ; Pain in right toe(s) M79.674 ; Pain in left toe(s) M79.675 ; Abscess of left foot L02.612 ; Pressure injury of left foot, stage 1 L89.891 and Pressure injury of right foot, stage [address] [address] 05/30/2024 Lani Black Abscess of left foot L02.612 and Skin ulcer of left heel, limited to breakdown of skin L97.[address] [address] 11/16/2023 Lani Black [address] [address] 12/14/2023 Lani Black [address] [address] 05/06/2024 Lani Black Assessments Encounter Date Diagnosis (ICD Code) Assessment Notes Treatment Notes Treatment Clinical Notes Section Notes 10/05/2023 Tinea unguium (ICD-10 - B35.1) 10/05/2023 Arthritis (ICD-10 - M19.90) 11/08/2023 Pain in left toe(s) (ICD-10 - M79.675) 11/08/2023 Acquired hallux interphalangeus of left foot (ICD-10 - M20.12) 12/14/2023 Pressure injury of left foot, stage 1 (ICD-10 - L89.891) Response to treatment,Respo nse to treatment - Improvement Patient Educated with: WOUND CARE INSTRUCTIONS. pdf (WOUND CARE INSTRUCTIONS. pdf) 01/11/2024 Tinea unguium (ICD-10 - B35.1) 01/11/2024 Pain in right toe(s) (ICD-10 - M79.674) 05/06/2024 Tinea unguium (ICD-10 - B35.1) 05/06/2024 Tinea pedis of both feet (ICD-10 - B35.3) 05/30/2024 Abscess of left foot (ICD-10 - L02.612) 05/30/2024 Skin ulcer of left heel, limited to breakdown of skin (ICD-10 - L97.421) 05/06/2024 Pain in right toe(s) (ICD-10 - M79.674) 01/11/2024 Pain in left toe(s) (ICD-10 - M79.675) 12/14/2023 Acquired hallux interphalangeus of left foot (ICD-10 - M20.12) 11/08/2023 Keratoma (ICD-10 - L57.0) 10/05/2023 Pain in right toe(s) (ICD-10 - M79.674) 10/05/2023 Pain in left toe(s) (ICD-10 - M79.675) 12/14/2023 Pain in left toe(s) (ICD-10 - M79.675) 05/06/2024 Pain in left toe(s) (ICD-10 - M79.675) 01/11/2024 Acquired hallux interphalangeus of left foot (ICD-10 - M20.12) Response to treatment - Improvement 05/06/2024 Abscess of left foot (ICD-10 - L02.612) Patient Educated with: WOUND CARE INSTRUCTIONS. pdf (WOUND CARE INSTRUCTIONS. pdf) 10/05/2023 Acquired hallux extensus, left (ICD-10 - M20.5X2) 10/05/2023 Hallux varus, left (ICD-10 - M20.32) 05/06/2024 Pressure injury of left foot, stage 1 (ICD-10 - L89.891) Response to treatment,Respo nse to treatment - worse Patient Educated with: WOUND CARE INSTRUCTIONS. pdf (WOUND CARE INSTRUCTIONS. pdf) 05/06/2024 Pressure injury of right foot, stage 1 (ICD-10 - L89.891) Response to treatment worse 10/05/2023 Hypertrophy of bone of left foot (ICD-10 - M89.372) 10/05/2023 Other 12/14/2023 Other 05/06/2024 Other 05/30/2024 Other Plan Of Treatment Pending Test Test Name Order Date X ray : Ankle, left 2V 11/23/2020 *Wound Culture 05/06/2024 *Liver Function Test (LFT) 02/24/2014 X ray : Foot, left 3V 06/25/2013 X ray : Foot, right 3V 06/25/2013 90664-PLTVYBU NAIL, 6 OR MORE 06/21/2021 09636-QCWJHWA NAIL, 6 OR MORE 10/11/2021 56718-DUPJRML NAIL, 6 OR MORE 01/20/2022 70932-KAWKZPY NAIL, 6 OR MORE 04/28/2022 36252-IEBTREX NAIL, 6 OR MORE 06/01/2020 54592-RVUYNSS NAIL, 6 OR MORE 11/23/2020 44986-OGDYQKD NAIL, 6 OR MORE 03/01/2021 95886-EBJMFVX NAIL, 6 OR MORE 05/06/2024 46707-PMFBNPM NAIL, 6 OR MORE 08/25/2022 73046-MDYYLOS NAIL, 6 OR MORE 12/01/2022 78250-ISBKAQV NAIL, 6 OR MORE 03/13/2023 91826-THPXGHM NAIL, 6 OR MORE 06/26/2023 50139-TLDYLPW NAIL, 6 OR MORE 10/05/2023 90005-MJVOKUF NAIL, 6 OR MORE 01/11/2024 17001-FDZSIUS NAIL, 6 OR MORE 05/12/2014 46020-MDEQWPO NAIL, 6 OR MORE 08/18/2014 02660-HRBCEYE NAIL, 6 OR MORE 12/02/2014 97034-IRPTXFY NAIL, 6 OR MORE 05/06/2015 73820-FGGIJOP NAIL, 6 OR MORE 09/07/2015 62450-JFLYSNQ NAIL, 6 OR MORE 02/08/2016 74417-KGDCDLN NAIL, 6 OR MORE 06/09/2016 35566-UWAJBFC NAIL, 6 OR MORE 11/02/2016 99205-SEZAFTT NAIL, 6 OR MORE 03/07/2017 61997-VOGVXTR NAIL, 6 OR MORE 05/15/2017 88502-SEFVGCM NAIL, 6 OR MORE 08/21/2017 12979-KGERCFM NAIL, 6 OR MORE 11/23/2017 50672-ZWHAQJT NAIL, 6 OR MORE 02/05/2018 13549-XOJZOIN NAIL, 6 OR MORE 05/07/2018 38018-ZKJURGU NAIL, 6 OR MORE 08/20/2018 69106-WBNNKWE NAIL, 6 OR MORE 06/08/2011 02166-GJOWJNE NAIL, 6 OR MORE 09/07/2011 52068-SFQQXHK NAIL, 6 OR MORE 11/16/2011 42354-MTYGYEK NAIL, 6 OR MORE 02/01/2012 93527-ZQFANNQ NAIL, 6 OR MORE 04/11/2012 91097-AWYGERS NAIL, 6 OR MORE 05/07/2012 34067-AOWQAVA NAIL, 6 OR MORE 07/11/2012 15226-WEXDBVA NAIL, 6 OR MORE 10/10/2012 26201-MKECIKG NAIL, 6 OR MORE 12/17/2012 51712-AWVAVAK NAIL, 6 OR MORE 04/08/2013 96619-TPIRXTC NAIL, 6 OR MORE 06/25/2013 59265-ANKUXEO NAIL, 6 OR MORE 07/29/2013 01713-LRPNGXE NAIL, 6 OR MORE 09/24/2013 65306-BKSTYOS NAIL, 6 OR MORE 12/09/2013 20848-EHJXCFT NAIL, 6 OR MORE 02/24/2014 82630-UJJOQXL NAIL, 6 OR MORE 11/19/2018 37709-FETJHKA NAIL, 6 OR MORE 02/25/2019 02958-DAGDDZV NAIL, 6 OR MORE 06/03/2019 54350-RYNLJTP NAIL, 6 OR MORE 08/26/2019 43297-DHMCODW NAIL, 6 OR MORE 03/04/2020 62518-Imjpnpvy Plate 08/20/2018 56335-Psodcjri Plate 03/01/2021 98042-Jfcdqkjm Plate 06/21/2021 13430- Debride <25 sq cm 08/19/2021 70358- Debride <25 sq cm 10/11/2021 60869- Debride <25 sq cm 08/25/2022 67612- Debride <25 sq cm 06/21/2021 77239- Debride <25 sq cm 12/14/2023 85837- Debride <25 sq cm 06/26/2023 65201- Debride <25 sq cm 05/30/2024 14162- Debride <25 sq cm 03/04/2020 42137- Debride <25 sq cm 06/01/2020 34163 I&D ABSCESS- SIMPLE,SINGLE 024 , W5679-RIEEJ/INJECT, JOINT/BURSA 1 08/25/2012 Next Appt Details Provider Name:Lani Rodriguez Jamarcus , 08/26/2024 10:45:00 AM, [address] [place] [address], [phone], Insurance Providers Payer Name Payer Address Payer Phone Subscriber Number Group Number Insured Name Patient Relationship to Insured Coverage Start Date Coverage End Date Medicare National [employer] [address] [facility] [place] [address] [id number] Lainey Floyd Self - patient is the insured 7 [employer] [facility] [address] [place] [address] [id number] Lainey Floyd Self - patient is the insured Medical (General) History Medical History History ICD Code chicken pox asthma Surgical History Surgery Date(Month/Year) appendectomy 1957 carpal tunnel release 04/10/2017 Left Knee replacement 02/02 carpal tunnel surgery 01/04 Hospitalization History Reason Date(Month/Year)
== END 2024-08-20 10:58 | disposition home or self-care (01) ==
LOC: HO.LNP 10:57
PROVIDERS: PCP Nurse Practitioner Adult Health; Visit Provider Hospitalist
DX: J14 Pneumonia due to Hemophilus influenzae (principal); J47.1 Bronchiectasis with (acute) exacerbation; R21 Rash and other nonspecific skin eruption; J44.9 Chronic obstructive pulmonary disease, unspecified; R05.3 Chronic cough; J18.0 Bronchopneumonia, unspecified organism
CPT/HCPCS: 87070; 87077; 87116; 87185; 87205; 87206; 99212

== ENCOUNTER 2024-08-20 10:57 | Outpatient (AMB) | payer MEDICARE, SELFPAY ==
--- NOTE | 2024-08-20 11:03 | MHC.OFFVIS ---
Vital Signs 08/20/24 11:04 Height 5 ft 3 in Weight 169 lb 12.095 oz BMI 30.1 BP 120/68 Blood Pressure Location Lt brachial Position Sitting Pulse 62 Pulse Source Pulse Oximeter Pulse Oximetry (%) 99 Oxygen Delivery Method Room Air Intake Visit Reasons: COPD Allergies atorvastatin Adverse Reaction (Severe, Verified 08/20/24 11:09) muscle aches simvastatin Adverse Reaction (Severe, Verified 08/20/24 11:09) Muscles Aches HPI Comments Details: The patient is a 84-year-old woman with a known history of lifelong asthma. apparently back in October her respiratory symptoms got much worse with productive cough and green sputum. She was having hard time breathing with shortness of breath and likely wheezing. She was initially evaluated and was she was given a Z-Joshua. And then subsequent after that she was given some prednisone. She was asked to call back if she had any difficulties. Months past and she has not called back. However, her breathing has gotten where were then productive sputum yellowish in color. Sometimes it does gag her with coughing. on further questioning the patient usually gets worse in October. She does have a living space in the basement that this been a good amount of time in. No obvious mold. No birds or animals. 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 Nobody smokes in the house. We did look at her last chest x-ray from August 2011 that she had for her cardiac issues. The time of that that she had some tram tracking suggesting some bronchiectatic changes in the right base. She has not had a x-ray for does prolonged bronchitis. On exam she does have some coarse BS, end exhalation wheezing and bronchospastic cough. 01/23/2023 the patient is here for pulmonary follow-up visit. She has been complaining of a cough that is nonproductive in nature. Now for the last few months. Seems to be getting slightly better. The phlegm is yellowish in color. Initially she had a hard time sleeping because of the cough. This complained of sinusitis. The patient did try the nasal sprays but the nasal sprays cause a bleeding from the nose. Therefore she stopped them. She also has been using her inhalers with partial improvement of the symptoms. No significant wheezing on exam although she does have a productive cough. Will go and start her on a course of doxycycline to treat her for a lower respiratory infection. The patient also has been complaining of increased fatigue and daytime drowsiness. I did recommend she get a chest x-ray in 1-2 weeks. Will follow up with the results 07/26/2023 the patient is here for a pulmonary follow-up visit. She is still having hard time with her breathing and her cough. Apparently it got worse again. Now with yellowish greenish phlegm. Very tenacious difficult to expectorate. She goes to coughing spells moderate severity. She has concerned that she continues to have this chronic bronchitis issue. Seems that she has a baseline chronic bronchitis but this is an exacerbation at this time. No significant wheezing although she does have rhonchi in a very bronchospastic cough at this time. We were able to get a sputum specimen for culture. The patient was start low-dose prednisone and doxycycline. She does take flecainide so she does have limited options when it comes to antibiotics. She also was prescribed Augmentin over the fall and she did develop significant diarrhea and she had to stop it. Her last chest x-ray back over the summer was okay. If she has any worsening symptoms and does not respond to the therapy she will get a repeat x-ray. If the x-ray is not helpful then consider additional imaging studies suggest a CT scan of the chest and also and or bronchoscopy. 09/27/2023 the patient is here for a pulmonary follow-up visit. The patient overall has been feeling a little better. She still coughing the cough is still productive in nature. Although significantly better than before. She has been using her inhalers although her adverse no longer available she is taking the generic that she is concerned because is very expensive. We did talk about the [employer] card and [employer] and she can get that for better walker and I did give her a script for that. In the meantime for chronic bronchitis she did have a culture for strep pneumo and therefore we did vaccinated for that with the Prevnar 20 vaccine today. She was also treated with Augmentin. Therefore, will go ahead and request she start Daliresp to treat her chronic bronchitis with the hope that there was decrease the chest congestion. If she continues to be congested then we should send sputum to make sure that we completely eradicated the strep pneumo. Her chest x-ray was read as clear back over the summer 2022. If her symptoms persist she will come back and get another x-ray. Now the option to get a CT scan of chest and or a bronchoscopy for both diagnostic and therapeutic interventions. 01/31/2024 the patient is here for a pulmonary follow-up visit. She is due struggling with a cough. Productive in nature yellowish phlegm. Worse at nighttime. Moderate severity. The patient did have a visit back in September where we did give her Prevnar 20 vaccine and then we did treat her with doxycycline and also treated her where a with Augmentin for the strep pneumo lung infection that cultured in her sputum. She initially did feel better but then again now symptoms are worsening again. Will go ahead and give her Augmentin again for couple weeks and then get another culture to make sure is clear. She was supposed to get an x-ray. Will go ahead and requested at this time prior to her leaving. And then if still abnormal consider a CT scan of the chest and also consider bronchoscopy for therapeutic and diagnostic interventions. She has worried about a which still inside the house. At this point would still is off so therefore believe that is affecting her breathing right now. But indeed it can affect her breathing and caused irritation to the airways during the winter months. Will follow-up in a couple months. If she has any worsening symptoms she will call for an earlier assessment. 04/17/2024 the patient is here for a pulmonary follow-up visit. She is still struggling with breathing. She has had significant chest congestion. Suppurative airway disease. She did have a sputum culture done and was positive for Pseudomonas in addition to Haemophilus influenzae. She can not tolerate quinolones because she is on flecainide. Unfortunately. The patient ultimately had a CT scan of the chest which we personally reviewed demonstrating bilateral bronchiectasis some treating budding some mucus plugging. Based on the fact that she has bronchiectasis the patient was started on inhaled tobramycin 28 days on. She just completed 28 days. She feels like cough did get better. Although recently she started noticing increasing chest tightness and wheezing in addition to more chest congestion. We were able to get another sputum culture in the office. Unfortunately again she is on flecainide has limited antibiotic coverage. Will go ahead and treated with doxycycline for the possibility of recurrent Haemophilus and also will go ahead and give her some prednisone because she is having increased chest tightness and wheezing. Will continue to plan to continue the inhaled tobramycin 28 days on 20 days off. Although she did have some increased wheezing not sure if is related to the inhaled ZAK. We have to reassess when she restarts it. The other option 2 would be to consider bronchoscopy if the patient continues to be symptomatic for proper therapeutic cleaning of the airways assessing any airway disease or obstructions in addition to that making sure that we get the cultures. Therefore, go ahead and treat the patient now and consider bronchoscopy if the patient is no better. Also, will have the patient have some blood work including immune status to assess any potential etiology for her persistent lower respiratory infections. 05/16/2024 the patient is here for a pulmonary follow-up visit. The patient overall is doing well from a respiratory status. She developed a rash however. Mainly affecting her neck area her hands and also her feet and heels. She is not sure if is related to the ZAK or after that she did take some doxycycline or his related to anything else. Will go ahead and request blood work to assess for any connective tissue conditions that may be doing this specially with her sedimentation rate of 82. Will hold off on antibiotics at this time based on the symptoms in the findings. However, if her chest congestion does reoccur she is to provide additional sputum culture to see the Pseudomonas is still present so we can treated. I do not feel strongly that the rash is related to the inhaled tobramycin. If anything I believe it may be for ototoxicity from the doxycycline. Although was in her feet she had been wearing sandals start the time. The patient should be using her nebulizer for chest PT followed by the Acapella valve. We did review her last CT scan of the chest demonstrating the bronchiectatic changes mucus plugging she also has some small pulmonary nodules that are subcentimeter in size and will require a follow-up CT scan sometime in the spring. 06/25/2024 the patient is here for sick visit. She started developing worsening respiratory symptoms last week. Started complaining of productive cough yellowish phlegm. The cough was really significant were to the point that she has not been able to sleep at nighttime. She has taken [id number] medications with minimal relief. She started developing some cold sensation some chills. She has also felt fatigued. She was given a sick visit today. The patient so respiratory exam is fairly good just with diminished breath sounds. I do not appreciate any pneumonia. However, with the chills I want to make sure we cover her for lower respiratory infection. The patient does not have any wheezing at this time. Her cough is significantly she is having hard time sleeping. She needs a cough medicine. Will provide her some codeine cough medication that she can use at nighttime. If the patient is no better she will come in have an x-ray and call me. 08/20/2024 the patient is here for pulmonary follow-up visit. She continues to have productive cough and chest congestion and wheezing. She feels a little better than usual but she is still struggling with the on a daily basis. She also notices that she coughs a lot when she is laying flat and also when she is eating. She may have a component of micro aspirations. Will go ahead and request a barium swallow. In addition to that she has had multi polymicrobial infections likely secondary to her bronchiectasis and significant mucus burden. She is working with chest PT using hypertonic saline using the flutter valve. We did talk about considering bronchoscopy for therapeutic cleaning of the airways and also for deep cultures. She is going to consider it. In meantime we did get a sputum culture. Will wait for the culture to come back before treating her but if she feels like she is getting worse she can always call and we can send her empiric antibiotics. She will continue to use her respiratory therapy. She is concerned about using too much albuterol because of the issue of atrial fibrillation. Therefore she will monitor closely for any worsening symptoms. Will follow-up in a couple months. If she has any issues prior to that she will call. If she is agreeable to a bronchoscopy she can always call and we can set set one up. [facility] Medical History (Updated 06/25/24 @ 20:32 by Gagan Ratliff MD) Rash Bronchiectasis Pseudomonal pneumonia Abnormal chest x-ray Statin intolerance Essential hypertension Atherosclerotic cardiovascular disease PAF (paroxysmal atrial fibrillation) Non-rheumatic aortic stenosis Murmur, heart GERD (gastroesophageal reflux disease) Cough Asthma-COPD overlap syndrome Bronchitis Surgical History History of left knee replacement History of carpal tunnel release Family History Mother Breast cancer Father Heart attack Other Allergies Social History Comment: stiffness Patient Tobacco Use Status: Never used Tobacco Review of Systems Const Denies fever(s), Denies frequent falls, Denies weakness, Denies weight gain and Denies weight loss ENT Denies dizziness and Reports post nasal drip Card Denies chest pain, Denies leg edema, Denies lightheadedness, Denies palpitations, Denies dyspnea, Reports dyspnea on exertion, Denies orthopnea and Denies other (Loss of consciousness) Resp Reports change in phlegm color, Reports chest congestion, Reports cough, Denies dyspnea, Reports dyspnea on exertion and Reports wheezing GI Denies hematochezia and Denies change in bowel habits Musc Reports myalgias, Reports arthralgias, Denies muscle weakness, Denies numbness, Denies radiating pain into limb and Denies tingling Skin/Breast Reports erythema and Reports rash Neuro Denies dizziness, Denies frequent falls, Denies numbness, Denies tingling and Denies weakness Endo Denies palpitations Aller/Immun Reports wheezing Physical Exam Vital Signs: Last Vital Signs Pulse 62 08/20/24 11:04 BP 120/68 08/20/24 11:04 Pulse Ox 99 08/20/24 11:04 Oxygen Delivery Method Room Air 08/20/24 11:04 BMI result Body Mass Index 30.1 Const General: alert Neck Neck: Yes normal visual inspection, Yes full ROM and Yes no lymphadenopathy Chest Chest palpation & inspection: normal inspection of the chest Resp Effort & Inspection: no cough and prolonged expiratory phase Auscultation: rhonchi, wheezes and diminished lung sounds Cardio Rate: regular rate Rhythm: regular rhythm Heart sounds: S1 normal heart sound present and S2 normal heart sound present GI Palpation (GI): Soft to palpation and nontender Auscultation: normal bowel sounds Skin General skin exam: rashes and/or lesions noted Assessment & Plan Assessment & Plan (1) Bronchiectasis: Code(s): J47.9 - Bronchiectasis, uncomplicated Category: Medical Qualifiers: Bronchiectasis type: with acute exacerbation Qualified Code(s): J47.1 - Bronchiectasis with (acute) exacerbation (2) Asthma-COPD overlap syndrome: Code(s): J44.9 - Chronic obstructive pulmonary disease, unspecified Category: Medical (3) Cough: Code(s): R05 - Cough Category: Medical Qualifiers: Cough type: chronic Qualified Code(s): R05.3 - Chronic cough Plan nebs 2 times a day followed by [facility] for CPT holding inhaled Zak 28 days on/28 days off due to ?rash continue Flonase continue Astelin nasal spray nasal rinsing with saline Continue Airduo with Goodrx card for better pricing sputum cx consider bronchoscopy barium swallow ARELIS ass needed F/U 2-3 months Orders: Orders Acid-fast Culture + Smear Today J18.0 - Bronchopneumonia, unspecified organism, J47.1 - Bronchiectasis with (acute) exacerbation Sputum Cult + Gram stain Today J47.1 - Bronchiectasis with (acute) exacerbation [place] barium swallow Today K21.9 - Gastro-esophageal reflux disease without esophagitis Coding Level of Care Code Est Pt Level 4 (23012) Complex EM visit Add On G2211 Diagnoses Bronchiectasis with acute exacerbation J47.1 Bronchiectasis type: with acute exacerbation Asthma-COPD overlap syndrome J44.9 Chronic cough R05.3 Cough type: chronic Time Spent (min) 18
[2024-08-20 11:04] VITALS: BP 120/68; PULSE 62; O2SAT 99; BMI 30.1
== END 2024-08-20 11:42 | disposition home or self-care (01) ==
PROVIDERS: PCP Nurse Practitioner Adult Health; Visit Provider Hospitalist
DX: J47.1 Bronchiectasis with (acute) exacerbation (principal); J44.9 Chronic obstructive pulmonary disease, unspecified; R05.3 Chronic cough
CPT/HCPCS: 99214; G2211

== ENCOUNTER 2024-08-28 09:45 | Outpatient (AMB) | payer MEDICARE, SELFPAY ==
--- NOTE | 2024-08-28 09:55 | MHC.OFFVIS ---
Vital Signs 08/28/24 09:56 Height 5 ft 3 in Weight 171 lb 15.369 oz BMI 30.5 BP 140/58 H Blood Pressure Location Lt brachial Position Sitting Pulse 62 Intake Visit Reasons: 6 mth f/iup Ocularist Required: No Accompanied by: Self / Same As Patient Allergies atorvastatin Adverse Reaction (Severe, Verified 08/20/24 11:09) muscle aches simvastatin Adverse Reaction (Severe, Verified 08/20/24 11:09) Muscles Aches Medication List - Last Reconciled 08/28/24 by Chandler Cisneros MD albuterol sulfate 90 mcg/actuation 2 inhalations inhalation Q6H PRN 30 days amoxicillin-pot clavulanate 875-125 mg 1 tab PO BID 14 days azelastine 2 sprays intranasal BID cholecalciferol (vitamin D3) 25 mcg PO DAILY coenzyme Q10 (Ultra CoQ10) 75 mg PO DAILY flecainide 50 mg PO BID 90 days fluticasone propion-salmeterol 250-50 mcg/dose (Advair Diskus) 1 ea PO BID levalbuterol HCl 1.25 mg (3 mL) inhalation BID 30 days metoprolol succinate ER 12.5 mg (1/2 x 25 mg) PO DAILY 90 days nebulizers As directed rivaroxaban (Xarelto) 20 mg PO DAILY rosuvastatin 10 mg PO BEDTIME sodium chloride 3% 4 mL inhalation BID 30 days valsartan 160 mg PO DAILY HPI Comments Details: Lainey returns for follow-up regarding atrial fibrillation, aortic stenosis, coronary artery disease. She does not have any cardiac symptoms like angina. Continues to deal with respiratory issues including some infection, pacing extra. One episode of palpitations that she thinks was atrial fibrillation, listed for few hours. However, nothing recurrent. Continues to have aches and pains everywhere. [facility] Medical History (Updated 06/25/24 @ 20:32 by Gagan Ratliff MD) Rash Bronchiectasis Pseudomonal pneumonia Abnormal chest x-ray Statin intolerance Essential hypertension Atherosclerotic cardiovascular disease PAF (paroxysmal atrial fibrillation) Non-rheumatic aortic stenosis Murmur, heart GERD (gastroesophageal reflux disease) Cough Asthma-COPD overlap syndrome Bronchitis Surgical History History of left knee replacement History of carpal tunnel release Family History Mother Breast cancer Father Heart attack Other Allergies Social History (Updated 08/28/24 @ 10:01 by Leslie Meraz CMA) Alcohol intake: former Comment: stiffness Patient Tobacco Use Status: Never used Tobacco Review of Systems Const Denies chills, Denies fatigue, Denies fever(s), Denies weight gain and Denies weight loss ENT Denies dizziness Card Denies chest pain, Denies leg edema, Denies lightheadedness, Denies palpitations, Denies dyspnea on exertion, Denies orthopnea and Denies other Resp Denies cough and Denies dyspnea on exertion GI Denies hematochezia and Denies change in stool character Musc Denies abnormal gait, Denies muscle weakness, Denies numbness, Denies radiating pain into limb and Denies tingling Neuro Denies abnormal gait, Denies dizziness, Denies numbness and Denies tingling Endo Denies fatigue and Denies palpitations Physical Exam Vital Signs: Last Vital Signs Pulse 62 08/28/24 09:56 BP 140/58 H 08/28/24 09:56 BMI result Body Mass Index 30.5 Const General: comfortable and no acute distress Orientation/consciousness: patient oriented x3 HEENT Other: Unremarkable Head: Yes normal to inspection Neck Neck: Yes normal visual inspection Chest Chest palpation & inspection: normal inspection of the chest Resp Auscultation: wheezes Cardio Palpation: normal PMI Heart sounds: S1 normal heart sound present, S2 normal heart sound present, no gallops, Murmur heart sound present systolic II/ and at the right sternal border and no rubs GI Palpation (GI): Soft to palpation Back/Spine/Pelvis Other: unremarkable Skin Other: Bruising related to anticoagulation and skin fragility. General skin exam: no rashes or lesions noted Neuro General: patient oriented x3 Extrem Other: Chronic changes Psych Mental Status: mental status grossly normal Office Procedures EKG Details: EKG with underlying sinus rhythm at 62/Min; no significant ST-T changes; [place]. [address]-Qjrihlhvyezvdekep, Complete Assessment & Plan Assessment & Plan (1) Non-rheumatic aortic stenosis: Code(s): I35.0 - Nonrheumatic aortic (valve) stenosis Category: Medical Plan: In the last echocardiogram, moderately calcified aortic valve with mild stenosis. Preserved LVEF at 63%. We can recheck in due course. (2) PAF (paroxysmal atrial fibrillation): Code(s): I48.0 - Paroxysmal atrial fibrillation Category: Medical Plan: On flecainide and metoprolol at low doses. As she had a recent episode of atrial fibrillation, we can increase the metoprolol to 25 mg daily. Hopefully, wheezing does not get worse. Continue anticoagulation. (3) Atherosclerotic cardiovascular disease: Code(s): I25.10 - Atherosclerotic heart disease of ambler coronary artery without angina pectoris Category: Medical Plan: Coronary CTA in the past - mild nonobstructive disease in the left main and moderate disease in the proximal circumflex. Clinically, does not have any angina or ischemic sounding symptoms. She is not suitable for a stress test as she is walking with a cane and cannot do pharmacological with Lexiscan either due to wheezing. Will need to follow clinically. Continue statins. Last available LDL 86 mg/dl. Previously, as much as 157 mg/dL. (4) Essential hypertension: Code(s): I10 - Essential (primary) hypertension Category: Medical Plan: Borderline high today. On valsartan. She has been on amlodipine as well as lisinopril in the past but not taking anymore due to intolerance. (5) Statin intolerance: Code(s): Z78.9 - Other specified health status Category: Medical Plan: Symptoms more likely from arthritic issues than statin tolerance. On a small dose of statin. No changes. Medications: New metoprolol succinate ER (Toprol XL) 25 mg PO DAILY 90 tabs 3RF Discontinued metoprolol succinate ER Discontinued Reason: Doctor's Order 12.5 mg (1/2 x 25 mg) PO DAILY 90 days 45 tabs 3RF Coding Level of Care Code Est Pt Level 4 (11928) Diagnoses Non-rheumatic aortic stenosis I35.0 PAF (paroxysmal atrial fibrillation) I48.0 Atherosclerotic cardiovascular disease I25.10 Essential hypertension I10 Statin intolerance Z78.9 CPT Codes EKG - CPT: 63415-Muxnpiwuyimoimejf, Complete ([id number])
[2024-08-28 09:56] VITALS: BP 140/58; PULSE 62; BMI 30.5
--- OUTSIDE RECORDS SUMMARY | 2024-08-28 10:35 | XMS_ITS | Continuity of Care Document ---
Author Organization [facility] Adult Address [address] [place] [id number]- Care Team Providers Care Warp Yarn Sorter Name Role Phone Sarah BRODY, Arielle Kim Primary Care [id number] Date(s): 07/29/24 - 08/05/[address] [address]- Attending Physician: Yareli Lobato NP Encounter Type: Office Visit Allergies, Adverse Reactions, Alerts No Known Allergies Immunizations Given and Recorded Vaccine Date Status Refusal Reason influenza virus vaccine, inactivated 05/21/24 Jose Manuel rded influenza virus vaccine, inactivated 05/16/23 Jose Manuel rded influenza virus vaccine, inactivated 06/14/22 Jose Manuel rded influenza virus vaccine, inactivated 05/13/21 Jose Manuel rded influenza virus vaccine, inactivated 1 04/18/20 Re corded influenza virus vaccine, inactivated 2 04/15/20 Re corded influenza virus vaccine, inactivated 3 05/18/18 Gi lamberto influenza virus vaccine, inactivated 4 05/01/17 Gi lamberto influenza virus vaccine, inactivated 5 06/25/14 Re corded influenza virus vaccine, inactivated 04/26/10 Give n SARS-CoV-2(COVID-19)mRNA-LNP vac([id number]) 05/21/24 Recorded SARS-CoV-2(COVID-19)mRNA-LNP vac([id number]) 05/16/23 Recorded pneumococcal 20-valent conjugate vaccine 09/27/23 Recorded [id number] 12y+ bivalent booster vax 07/13/22 Recorded SARS-CoV-2 mRNA (isazdji-ifgm-opoth) vax 12/09/21 Recorded SARS-CoV-2 (COVID-19) mRNA BNT-162b2 vac 05/10/21 Recorded SARS-CoV-2 (COVID-19) mRNA BNT-162b2 vac 10/07/20 Recorded SARS-CoV-2 (COVID-19) mRNA BNT-162b2 vac 09/16/20 Recorded pneumococcal 23-valent vaccine 08/15/19 Recorded Influenza Virus Vaccine (oldterm) 06/02/19 Recorde d pneumococcal 13-valent vaccine 10/27/15 Given Fluzone (oldterm) 6 06/10/15 Recorded Boostrix (Tdap) (oldterm) 7 06/10/15 Recorded tetanus/diphtheria/pertussis, acel(Tdap) 06/10/15 Recorded FluLaval (oldterm) 8 07/11/12 Given FluLaval (oldterm) 9 06/07/11 Given Pneumococcal Poly (PPV23) (oldterm) 12/19/05 Given 1Result Comment: recieved at [facility] 2Result Comment: [facility] at [facility] 3Result Comment: [05/28/2018] Administered at [facility] Note: [facility] 5Location History: [facility] 6Location History: [facility] 7Location History: [facility] Note: [facility] info given to pt. 9Admin Note: [facility] info given to pt. Medications Advair Diskus 500 mcg-50 mcg inhalation powder 1, puffs, Inhalation, 2 times a day, # 60 each, Refills 0, Tot. Refills 0, Maintenance, 12/02/22 11:05:00 AM EDT, Powder, Route to Pharmacy Electronically, NCPDP_[id number], [facility] #[id number], 159, cm, 12/02/22 10:24:00 EDT, Height, 74.1, kg, 02/01/22 9:22:00 EDT, Dry Weight Start Date: 12/02/22 Status: Ordered Quantity: 60.0 Unit: each Repeat number: 1 albuterol CFC free 90 mcg/inh inhalation aerosol 2, puffs, Inhalation, Every 4 hours, PRN, # 1 each, Refills 1, Tot. Refills 1, Maintenance, :15:00 PM EDT, Aerosol, Route to Pharmacy Electronically, NCPDP_[id number], [facility] #[id number], 159, cm, 08/23/19 10:57:00 EST, Height, 78, kg, 02/06/18 11:57:00 EDT, Dry Weight Start Date: 11/25/19 Stop Date: 01/24/20 Status: Ordered Quantity: 1.0 Unit: each Repeat number: 2 bacillus coagulans-inulin oral capsule 1 capsule, By Mouth, Daily, # 30 capsule, 0 Refills, Maintenance, 02/02/22 8:36:00 AM EDT, Capsule, Partial fill upon patient request if the prescription is for a schedule II opioid drug. Start Date: 02/02/22 Status: Ordered Quantity: 30.0 Unit: capsule Repeat number: 1 D3-50 oral capsule 1 capsule = 1,250 mcg, By Mouth, Every 30 days, # 100 capsule, 0 Refills, Maintenance, 08/18/21 8:36:00 AM EST, Capsule, Partial fill upon patient request if the prescription is for a schedule II opioid drug. Start Date: 08/18/21 Status: Ordered Quantity: 100.0 Unit: capsule Repeat number: 1 flecainide 50 mg oral tablet 50 mg, 1, tablet, By Mouth, Every 12 hours, Refills 0, Maintenance, 08/20/19 11:53:00 AM EST Start Date: 08/20/19 Status: Ordered Repeat number: 1 JUXTA LITE leg wraps JUXTA LITE leg wraps, See Instructions, # 1 each, Refills 0, Tot. Refills 0, Maintenance, use dailyon legs, 07/29/24 3:13:00 PM EST, Supply Start Date: 07/29/24 Status: Ordered Quantity: 1.0 Unit: each Repeat number: 1 Indication: Venous insufficiency (chronic) (peripheral) metoprolol 25 mg oral tablet, extended release 12.5 mg, 0.5, tablet, By Mouth, Daily, # 30 tablet, Refills 0, Maintenance, 08/18/21 8:37:00 AM EST, Partial fill upon patient request if the prescription is for a schedule II opioid drug. Start Date: 08/18/21 Status: Ordered Quantity: 30.0 Unit: tablet Repeat number: 1 pantoprazole 40 mg oral delayed release tablet = 40 mg, By Mouth, Daily, # 30 tablet, 0 Refills, Maintenance, 02/02/22 8:28:00 AM EDT, EC Tablet, 159, cm, 02/02/22 6:37:00 EDT, Height, 74.1, kg, 02/01/22 9:22:00 EDT, Dry Weight Start Date: 02/02/22 Stop Date: 03/04/22 Status: Ordered Quantity: 30.0 Unit: tablet Repeat number: 1 rivaroxaban 10 mg oral tablet 1 tablet = 10 mg, By Mouth, Daily at supper, # 7 tablet, 0 Refills, Maintenance, 02/02/22 8:25:00 AMEDT, Tablet, [facility], Partial fill upon patient request if the prescription is fora schedule II opioid drug., 159, cm, 02/02/22 6:37:00 EDT, Height, 74.1, kg, 02/01/22 9:22:00 EDT, Dry Weight Start Date: 02/02/22 Stop Date: 02/09/22 Status: Ordered Quantity: 7.0 Unit: tablet Repeat number: 1 rosuvastatin 10 mg oral tablet 1 tablet = 10 mg, By Mouth, Daily, 0 Refills, Maintenance, 10/21/20 11:18:00 AM EST, Partial fill upon patient request if the prescription is for a schedule II opioid drug. Start Date: 10/21/20 Status: Ordered Repeat number: 1 valsartan 160 mg oral tablet See Instructions, TAKE 1 TABLET BY MOUTH DAILY, # 90 tablet, Refills 3, Tot. Refills 3, Maintenance, 12/09/23 12:47:00 PM EDT, Instructions Replace Required Details, Route to Pharmacy Electronically, [facility] #[id number], 159, cm, 12/08/23 16:00:00 EDT, Height, 74.1, kg, 02/01/22 9:22:00 EDT,Dry Weight Start Date: 12/09/23 Status: Ordered Quantity: 90.0 Unit: tablet Repeat number: 4 valsartan 160 mg oral tablet 1, tablet, By Mouth, Daily, # 90 tablet, Refills 1, Tot. Refills 1, Maintenance, 07/29/24 3:25:00 PM EST, Route to Pharmacy Electronically, [facility] #[id number], 159, cm, 07/29/24 14:39:00 EST, Height Start Date: 07/29/24 Stop Date: 01/25/25 Status: Ordered Quantity: 90.0 Unit: tablet Repeat number: 2 Xarelto 20 mg oral tablet 1 tablet = 20 mg, By Mouth, Daily before dinner, Start on POD # 7 after finishing 10mg daily for 7 days., # 30 tablet, 0 Refills, Maintenance, 02/02/22 8:34:00 AM EDT, Partial fill upon patient request if the prescription is for a schedule II opioid drug. Start Date: 02/02/22 Status: Ordered Quantity: 30.0 Unit: tablet Repeat number: 1 Xopenex 0.63 mg/3 mL inhalation solution 3 mL = 0.63 mg, Neb, 3 times a day, # 270 mL, 0 Refills, Maintenance, 11/09/20 8:15:00 PM EDT, Solution, [facility] #[id number], Partial fill upon patient request if the prescription is for a schedule II opioid drug., 155, cm, 11/09/20 13:00:00 EDT, Height Start Date: 11/09/20 Stop Date: 12/09/20 Status: Ordered Quantity: 270.0 Unit: mL Repeat number: 1 Indication: Unspecified asthma, uncomplicated Problem List Condition Confirmation Course Effective Dates Status Health Status Informant Adult bronchiectasis Confirmed Active Aortic stenosis Confirmed Active Asthma Confirmed Active Atrial fibrillation Confirmed Active CAD (coronary artery disease) Confirmed Active 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 Diverticulosis Confirmed Active Anticoagulated Confirmed Active History of squamous cell carcinoma Confirmed Active Hypercholesterolemia Confirmed 2004 Active Hypertension Confirmed Active 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 PVD (peripheral vascular disease) Confirmed Active Vital Signs Most recent to oldest [Reference Range]: 1 2 Height 159 cm (07/29/24 3:30 PM) 159 cm (07/29/24 2:39 PM) Weight 80.4 kg (07/29/24 2:39 PM) Oxygen Saturation [94-100 %] 100 % (07/29/24 2:39 PM) Pulse Rate [55-90 bpm] 80 bpm (12/16/24 2:39 PM) Body Mass Index [18.5-24.99 kg/m2] 31.8 kg/m2 *>HHI* (07/29/24 2:39 PM) Blood Pressure [90-138/55-84 mm Hg] 126/ 60mm Hg (07/29/24 3:30 PM) 146/68mm Hg *H* (07/29/24 2:39 PM) Mode of Delivery (Oxygen) Room air (07/29/24 2:39 PM) Blood pressure sites Arm, left (07/29/24 3:30 PM) Arm, right (07/29/24 2:39 PM) Weight Obtained Via Standing scale (07/29/24 2:39 PM) Social History Social History Type Response Smoking Status Never smoker entered on: 12/12/14 Sex Sex Representation Female (finding) Note * Chano Fry: PERFORM Event Display: Patient Education/Instruction Authored Date: [id number] Ambulatory [place] [address] Name: FABIO MORRELL : 1940?? Visit: 07/29/2024 14:37?? Ambulatory Visit Instructions ?? Your Care Team Primary Care Provider Yareli Lobato NP? This Visit Provider Yareli Lobato NP Your Diagnosis Venous insufficiency of leg Vitals Signs Pulse Rate: 80 bpm Height: 159 cm Systolic Blood Pressure: 126 mm Hg Weight: 80.4 kg Diastolic Blood Pressure: 60 mm Hg Body Mass Index:??31.8 kg/m2??Critical Oxygen Saturation: 100 % Body surface area: 1.88 Medications The list below reflects the information in our records and provided by you today along with any changes made during this visit. Please continue your medications until treatment is completed or stopped by your provider. If this is different from the information you have or there are other questions,please contact the prescribing provider. What How Much When Why Instructions New Durable Medical Equipment (JUXTA LITE leg wraps) See instructions Venous insufficiency of leg use daily on legs ?? Printed Prescription Changed Valsartan (valsartan 160 mg oral tablet) See instructions TAKE 1 TABLET BY MOUTH DAILY ?? Changed Valsartan (valsartan 160 mg oral tablet) 1 tab(s) Oral Daily Duration: 90 Days Pickup at [facility] #[id number] Unchanged Albuterol (albuterol CFC free 90 mcg/ inh inhalation aerosol) 2 puff(s) Inhalation Every 4 hours as needed for Cough Duration: 30 Days Unchanged bacillus coagulans-inulin (bacillus coagulans-inulin oral capsule) 1 capsule Oral Daily Unchanged Cholecalciferol (D3-50 oral capsule) 1 capsule Oral Every 30 days Unchanged Flecainide (flecainide 50 mg oral tablet) 1 tab(s) Oral Every 12 hours Unchanged Fluticasone-Salmeterol (Advair Diskus 500 mcg-50 mcg inhalation powder) 1 puff(s) Inhalation Twice a day Unchanged Levalbuterol (Xopenex 0.63 mg/ 3 mL inhalation solution) 3 Milliliter Nebulized inhalation 3 times a day Asthma Duration: 30 Days Unchanged Metoprolol (metoprolol 25 mg oral tablet, extended release) 0.5 tab(s) Oral Daily Unchanged Pantoprazole (pantoprazole 40 mg oral delayed release tablet) 40 Milligram Oral Daily Duration: 30 Days Unchanged rivaroxaban (rivaroxaban 10 mg oral tablet) 1 tab(s) Oral Daily at supper Duration: 7 Days Unchanged rivaroxaban (Xarelto 20 mg oral tablet) 1 tab(s) Oral Daily before dinner Start on POD # 7 after finishing 10mg daily for 7 days. ?? Unchanged Rosuvastatin (rosuvastatin 10 mg oral tablet) 1 tab(s) Oral Daily [id number] [address], [place] [id number] [phone] Medications and Immunizations Administered Medications Given During Visit No medications given during this visit.?? Allergies (NKA means No Known Allergies) NKA Common Emergency Awareness Tips IS IT A STROKE? Act FAST and Check for these signs: FACE Does the face look uneven? ARM Does one arm drift down? SPEECH Does their speech sound strange? TIME Call at any sign of stroke ?? Heart Attack Signs Chest discomfort: Most heart attacks involve discomfort in the center of the chest and lasts more than a few minutes, or goes away and comes back. It can feel like uncomfortable pressure, squeezing, fullness or pain. Discomfort in upper body: Symptoms can include pain or discomfort in one or both arms, back, neck, jaw or stomach. Shortness of breath: With or without discomfort. Other signs: Breaking out in a cold sweat, nausea, or lightheaded. Remember, MINUTES DO MATTER. If you experience any of these heart attack warning signs, call to get immediate medical attention! ?? Smoking can increase your chances of developing chronic health problems and can cause harmful effects to other family members in your house. If you smoke, you are strongly encouraged to quit. Please call [email or web address] Link at [phone] or [phone] Taste Eat ([phone]) or log in to [email or web address] for referrals to smoking cessation programs. ?? The National Suicide Prevention Hotline is available 06/03 if you or someone you know needs to find a reason to keep living. By calling 4-783-273-Webcrumbz (7167) you'll be connected to a skilled, trained counselor at a crisis center in your area. [facility] Portal You can view and manage your care through the patient portal or by using a health care ilda of your choosing. [employer] is a website that allows you to securely view your medical information including your hospital discharge summary, office visit summaries, medications and follow-up visits. You can also request appointments, renew medications, and request access to your medical information using a health care ilda of your choosing, or just ask a question. You can enroll at [email or web address] or register during your next office visit. [facility], in keeping with [facility] guidance, no longer requires face masks for staff, patientsor visitors in most situations. Similiar to time spent indoors at other locations, there is the chance that you were exposed to repiratory viruses during your time with us (such as flu or COVID-19). If you develop symptoms concerning for a viral respiratory infection, please seek testing (and treatment if indicated) from your medical provider or home test kit. ?? Disclaimer: The information provided is of a general nature and is intended to be used in conjunction with the recommendations and advice of your health care practitioner. Every effort has been made to ensure that the information provided is accurate and complete at the time it is provided to you however, as your needs change, or, as new information becomes available, different or additional instructions may be required. ?? If you have questions, please consult with your primary care provider or pharmacist, as appropriate. This information is not intended to serve as substitution for assessment and evaluation by a qualified health care provider. If you do not have a primary care provider, you may find a [facility] provider by calling [facility] at [phone]. Patient Care team information Care Team Personnel Name: Vanessa David RN Position: [facility] Onco RN Member Role: Primary Care Nurse Name: Bailey Jim RN Position: S RN Member Role: Primary Care Nurse Name: Sarah BRODY, Arielle Kim Position: [facility] PCO Associate Professional Member Role: PCP Address: [address] [place] [address] Telecom: Name: Alannah Brink RN Position: [facility] RN Member Role: Primary Care Nurse Care Team Related Persons Name: JACINTO MORRELL Insurance Providers Guarantor name: FABIO MORRELL Health Plan Information #: 2 Payer: MED[employer] Member Number: [id number] Policy Number: NA Group Number: NA Health Plan Information #: 1 Payer: MEDICARE PART B OUTPT Member Number: [id number] Policy Number: NA Group Number: NA
== END 2024-08-28 10:28 | disposition home or self-care (01) ==
PROVIDERS: PCP Nurse Practitioner Adult Health; Visit Provider Internal Medicine
DX: I35.0 Nonrheumatic aortic (valve) stenosis (principal); I48.0 Paroxysmal atrial fibrillation; I25.10 Atherosclerotic heart disease of native coronary artery without angina pectoris; I10 Essential (primary) hypertension; Z78.9 Other specified health status
CPT/HCPCS: 93010; 99214

== ENCOUNTER → 2024-08-28 09:45 | Outpatient (BNVA) | payer MEDICARE, SELFPAY | PROVIDERS: PCP Nurse Practitioner Adult Health; Visit Provider Internal Medicine | DX: I35.0 Nonrheumatic aortic (valve) stenosis (principal); I48.0 Paroxysmal atrial fibrillation; I25.10 Atherosclerotic heart disease of native coronary artery without angina pectoris; I10 Essential (primary) hypertension; Z78.9 Other specified health status | CPT/HCPCS: 93005; 99212 ==

== ENCOUNTER 2024-10-23 11:12 | Outpatient (AMB) | payer MEDICARE, SELFPAY ==
[2024-10-23 11:21] VITALS: BP 130/66; PULSE 61; O2SAT 98; BMI 30.3
--- NOTE | 2024-10-23 11:21 | A.OFFVIS_ITS ---
Vital Signs 10/23/24 11:21 Height 5 ft 3 in Weight 170 lb 13.732 oz BMI 30.3 BP 130/66 Blood Pressure Location Rt brachial Position Sitting Pulse 61 Pulse Source Pulse Oximeter Pulse Oximetry (%) 98 Oxygen Delivery Method Room Air Intake Visit Reasons: COPD Allergies atorvastatin Adverse Reaction (Severe, Verified 10/23/24 11:24) muscle aches simvastatin Adverse Reaction (Severe, Verified 10/23/24 11:24) Muscles Aches HPI Comments Details: The patient is a 84-year-old woman with a known history of lifelong asthma. a pparently back in October her respiratory symptoms got much worse with productive cough and green sputum. She was having hard time breathing with shortness of breath and likely wheezing. She was initially evaluated and was she was given a Z-Joshua. And then subsequent after that she was given some prednisone. She was asked to call back if she had any difficulties. Months past and she has not called back. However, her breathing has gotten where were then productive sputum yellowish in color. Sometimes it does gag her with coughing. on further questioning the patient usually gets worse in October. She does have a living space in the basement that this been a good amount of time in. No obvious mold. No birds or animals. 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 Nobody smokes in the house. We did look at her last chest x-ray from August 2011 that she had for her cardiac issues. The time of that that she had some tram tracking suggesting some bronchiectatic changes in the right base. She has not had a x-ray for does prolonged bronchitis. On exam she does have some coarse BS, end exhalation wheezing and bronchospastic cough. 01/23/2023 the patient is here for pulmonary follow-up visit. She has been complaining of a cough that is nonproductive in nature. Now for the last few months. Seems to be getting slightly better. The phlegm is yellowish in color. Initially she had a hard time sleeping because of the cough. This complained of sinusitis. The patient did try the nasal sprays but the nasal sprays cause a bleeding from the nose. Therefore she stopped them. She also has been using her inhalers with partial improvement of the symptoms. No significant wheezing on exam although she does have a productive cough. Will go and start her on a course of doxycycline to treat her for a lower respiratory infection. The patient also has been complaining of increased fatigue and daytime drowsiness. I did recommend she get a chest x-ray in 1-2 weeks. Will follow up with the results 07/26/2023 the patient is here for a pulmonary follow-up visit. She is still having hard time with her breathing and her cough. Apparently it got worse again. Now with yellowish greenish phlegm. Very tenacious difficult to expectorate. She goes to coughing spells moderate severity. She has concerned that she continues to have this chronic bronchitis issue. Seems that she has a baseline chronic bronchitis but this is an exacerbation at this time. No significant wheezing although she does have rhonchi in a very bronchospastic cough at this time. We were able to get a sputum specimen for culture. The patient was start low-dose prednisone and doxycycline. She does take flecainide so she does have limited options when it comes to antibiotics. She also was prescribed Augmentin over the fall and she did develop significant diarrhea and she had to stop it. Her last chest x-ray back over the summer was okay. If she has any worsening symptoms and does not respond to the therapy she will get a repeat x-ray. If the x-ray is not helpful then consider additional imaging studies suggest a CT scan of the chest and also and or bronchoscopy. 09/27/2023 the patient is here for a pulmonary follow-up visit. The patient overall has been feeling a little better. She still coughing the cough is still productive in nature. Although significantly better than before. She has been using her inhalers although her adverse no longer available she is taking the generic that she is concerned because is very expensive. We did talk about the Agent Panda card and Br[employer] and she can get that for better walker and I did give her a script for that. In the meantime for chronic bronchitis she did have a culture for strep pneumo and therefore we did vaccinated for that with the Prevnar 20 vaccine today. She was also treated with Augmentin. Therefore, will go ahead and request she start Daliresp to treat her chronic bronchitis with the hope that there was decrease the chest congestion. If she continues to be congested then we should send sputum to make sure that we completely eradicated the strep pneumo. Her chest x-ray was read as clear back over the summer 2022. If her symptoms persist she will come back and get another x-ray. Now the option to get a CT scan of chest and or a bronchoscopy for both diagnostic and therapeutic interventions. 01/31/2024 the patient is here for a pulmonary follow-up visit. She is due struggling with a cough. Productive in nature yellowish phlegm. Worse at nighttime. Moderate severity. The patient did have a visit back in September where we did give her Prevnar 20 vaccine and then we did treat her with doxycycline and also treated her where a with Augmentin for the strep pneumo lung infection that cultured in her sputum. She initially did feel better but then again now symptoms are worsening again. Will go ahead and give her Augmentin again for couple weeks and then get another culture to make sure is clear. She was supposed to get an x-ray. Will go ahead and requested at this time prior to her leaving. And then if still abnormal consider a CT scan of the chest and also consider bronchoscopy for therapeutic and diagnostic interventions. She has worried about a which still inside the house. At this point would still is off so therefore believe that is affecting her breathing right now. But indeed it can affect her breathing and caused irritation to the airways during the winter months. Will follow-up in a couple months. If she has any worsening symptoms she will call for an earlier assessment. 04/17/2024 the patient is here for a pulmonary follow-up visit. She is still struggling with breathing. She has had significant chest congestion. Suppurative airway disease. She did have a sputum culture done and was positive for Pseudomonas in addition to Haemophilus influenzae. She can not tolerate quinolones because she is on flecainide. Unfortunately. The patient ultimately had a CT scan of the chest which we personally reviewed demonstrating bilateral bronchiectasis some treating budding some mucus plugging. Based on the fact that she has bronchiectasis the patient was started on inhaled tobramycin 28 days on. She just completed 28 days. She feels like cough did get better. Although recently she started noticing increasing chest tightness and wheezing in addition to more chest congestion. We were able to get another sputum culture in the office. Unfortunately again she is on flecainide has limited antibiotic coverage. Will go ahead and treated with doxycycline for the possibility of recurrent Haemophilus and also will go ahead and give her some prednisone because she is having increased chest tightness and wheezing. Will continue to plan to continue the inhaled tobramycin 28 days on 20 days off. Although she did have some increased wheezing not sure if is related to the inhaled ZAK. We have to reassess when she restarts it. The other option 2 would be to consider bronchoscopy if the patient continues to be symptomatic for proper therapeutic cleaning of the airways assessing any airway disease or obstructions in addition to that making sure that we get the cultures. Therefore, go ahead and treat the patient now and consider bronchoscopy if the patient is no better. Also, will have the patient have some blood work including immune status to assess any potential etiology for her persistent lower respiratory infections. 05/16/2024 the patient is here for a pulmonary follow-up visit. The patient overall is doing well from a respiratory status. She developed a rash however. Mainly affecting her neck area her hands and also her feet and heels. She is not sure if is related to the ZAK or after that she did take some doxycycline or his related to anything else. Will go ahead and request blood work to assess for any connective tissue conditions that may be doing this specially with her sedimentation rate of 82. Will hold off on antibiotics at this time based on the symptoms in the findings. However, if her chest congestion does reoccur she is to provide additional sputum culture to see the Pseudomonas is still present so we can treated. I do not feel strongly that the rash is related to the inhaled tobramycin. If anything I believe it may be for ototoxicity from the doxycycline. Although was in her feet she had been wearing sandals start the time. The patient should be using her nebulizer for chest PT followed by the Acapella valve. We did review her last CT scan of the chest demonstrating the bronchiectatic changes mucus plugging she also has some small pulmonary nodules that are subcentimeter in size and will require a follow-up CT scan sometime in the spring of 2024. 06/25/2024 the patient is here for sick visit. She started developing worsening respiratory symptoms last week. Started complaining of productive cough yellowish phlegm. The cough was really significant were to the point that she has not been able to sleep at nighttime. She has taken ilcr-vcy-zozlusx medications with minimal relief. She started developing some cold sensation some chills. She has also felt fatigued. She was given a sick visit today. The patient so respiratory exam is fairly good just with diminished breath sounds. I do not appreciate any pneumonia. However, with the chills I want to make sure we cover her for lower respiratory infection. The patient does not have any wheezing at this time. Her cough is significantly she is having hard time sleeping. She needs a cough medicine. Will provide her some codeine cough medication that she can use at nighttime. If the patient is no better she will come in have an x-ray and call me. 08/20/2024 the patient is here for pulmonary follow-up visit. She continues to have productive cough and chest congestion and wheezing. She feels a little better than usual but she is still struggling with the on a daily basis. She also notices that she coughs a lot when she is laying flat and also when she is eating. She may have a component of micro aspirations. Will go ahead and request a barium swallow. In addition to that she has had multi polymicrobial infections likely secondary to her bronchiectasis and significant mucus burden. She is working with chest PT using hypertonic saline using the flutter valve. We did talk about considering bronchoscopy for therapeutic cleaning of the airways and also for deep cultures. She is going to consider it. In meantime we did get a sputum culture. Will wait for the culture to come back before treating her but if she feels like she is getting worse she can always call and we can send her empiric antibiotics. She will continue to use her respiratory therapy. She is concerned about using too much albuterol because of the issue of atrial fibrillation. Therefore she will monitor closely for any worsening symptoms. Will follow-up in a couple months. If she has any issues prior to that she will call. If she is agreeable to a bronchoscopy she can always call and we can set set one up. 10/23/2024 the patient is here for a pulmonary follow-up visit. She continues to cough. But 2 weeks ago she started developing a raspy voice some laryngitis. Likely she picked up a respiratory illness and then worsening respiratory disease. She has increased chest congestion and burden. The mucus is yellowish in color. We had multiple cultures previously demonstrating multiple organisms. She has underlying bronchiectasis on exam. She is using the nebulizer and also CPT with flutter valve and also with hypertonic saline. The issue is that she takes flecainide and therefore she is limited as far as some of the therapies that could be provided for her bronchiectasis. Will go ahead and start her on doxycycline and she can start that twice a day and then hopefully we can wean her down to once a day for prophylactic dose. She continue with the therapy. If she is not better she will call back otherwise follow-up in a couple months and assess her progress. [facility] Medical History (Updated 06/25/24 @ 20:32 by Gagan Ratliff MD) Rash Bronchiectasis Pseudomonal pneumonia Abnormal chest x-ray Statin intolerance Essential hypertension Atherosclerotic cardiovascular disease PAF (paroxysmal atrial fibrillation) Non-rheumatic aortic stenosis Murmur, heart GERD (gastroesophageal reflux disease) Cough Asthma-COPD overlap syndrome Bronchitis Surgical History History of left knee replacement History of carpal tunnel release Family History Mother Breast cancer Father Heart attack Other Allergies Social History Alcohol intake: former Comment: stiffness Patient Tobacco Use Status: Never used Tobacco Review of Systems Const Denies fever(s), Denies frequent falls, Denies weakness, Denies weight gain and Denies weight loss ENT Denies dizziness and Reports post nasal drip Card Denies chest pain, Denies leg edema, Denies lightheadedness, Denies palpitations , Denies dyspnea, Reports dyspnea on exertion, Denies orthopnea and Denies other (Loss of consciousness) Resp Reports change in phlegm color, Reports chest congestion, Reports cough, Denies dyspnea, Reports dyspnea on exertion and Reports wheezing GI Denies hematochezia and Denies change in bowel habits Musc Reports myalgias, Reports arthralgias, Denies muscle weakness, Denies numbness, Denies radiating pain into limb and Denies tingling Skin/Breast Reports erythema and Reports rash Neuro Denies dizziness, Denies frequent falls, Denies numbness, Denies tingling and Denies weakness Endo Denies palpitations Aller/Immun Reports wheezing Physical Exam Vital Signs: Last Vital Signs Pulse 61 10/23/24 11:21 BP 130/66 10/23/24 11:21 Pulse Ox 98 10/23/24 11:21 Oxygen Delivery Method Room Air 10/23/24 11:21 BMI result Body Mass Index 30.3 Const General: alert Neck Neck: Yes normal visual inspection, Yes full ROM and Yes no lymphadenopathy Chest Chest palpation & inspection: normal inspection of the chest Resp Effort & Inspection: no cough and prolonged expiratory phase Auscultation: rhonchi, wheezes and diminished lung sounds Cardio Rate: regular rate Rhythm: regular rhythm Heart sounds: S1 normal heart sound present and S2 normal heart sound present GI Palpation (GI): Soft to palpation and nontender Auscultation: normal bowel sounds Skin General skin exam: rashes and/or lesions noted Assessment & Plan Assessment & Plan (1) Bronchiectasis: Code(s): J47.9 - Bronchiectasis, uncomplicated Category: Medical Qualifiers: Bronchiectasis type: with acute exacerbation Qualified Code(s): J47.1 - Bronchiectasis with (acute) exacerbation (2) Asthma-COPD overlap syndrome: Code(s): J44.9 - Chronic obstructive pulmonary disease, unspecified Category: Medical (3) Cough: Code(s): R05 - Cough Category: Medical Qualifiers: Cough type: chronic Qualified Code(s): R05.3 - Chronic cough Plan nebs 2 times a day followed by [employer] for CPT holding inhaled Zak 28 days on/28 days off due to ?rash start Doxycycline start Prednisone taper continue Flonase continue Astelin nasal spray nasal rinsing with saline Continue Advair consider bronchoscopy barium swallow ARELIS ass needed F/U 2-3 months Medications: New doxycycline monohydrate 100 mg PO BID 56 tabs 2RF 28 days sodium chloride 7% 4 mL inhalation BID 240 mL 10RF 30 days J47.1 - Bronchiectasis with (acute) exacerbation prednisone PO daily; Take 2 tabs daily x 5 days, then 1 tablet daily x 5 days 15 tabs 0RF 10 days Changed From fluticasone propion-salmeterol 250-50 mcg/dose (Advair Diskus) 1 ea PO BID 180 ea 3RF J44.9 - Chronic obstructive pulmonary disease, unspecified To fluticasone propion-salmeterol 250-50 mcg/dose (Advair Diskus) 1 ea inhalation BID 180 ea 3RF 90 days J44.9 - Chronic obstructive pulmonary disease, unspecified Coding Level of Care Code Est Pt Level 4 (46139) Complex EM visit Add On G2211 Diagnoses Bronchiectasis with acute exacerbation J47.1 Bronchiectasis type: with acute exacerbation Asthma-COPD overlap syndrome J44.9 Chronic cough R05.3 Cough type: chronic Time Spent (min) 17
--- OUTSIDE RECORDS SUMMARY | 2024-10-23 13:13 | XMS_ITS | Data Portability ---
Author Organization [facility], [facility] [place] Address [address] [place] [address] Care Team Providers Care Telescope Maintenance Name Role Phone HAYDEE ARENAS Referring Provider Assessment No assessment recorded. Plan of Treatment Reminders Order Date Submit Date Provider Last Modified By Organization Details Last Modified Time Details Appointments NEW PATIENT 15 2024 01:15P M Farhan Brito PA-C Not available Not available Not available RECHECK 15 2024 11:30A M Laney Cagle PA-C Not available Not available Not available Lab None recorded. Referral physical therapist referral - (THIS PRESCRIPT ION EXPIRES 30 DAYS FROM DATE LISTED)PH YSICAL THERAPY REFERRAL ICD-10: M70.62(Le ft)1. Core stabiliza tion, hip abductor strengthe pedro with focus on eccentric strengthe pedro and balance training. 2. Soft tissue modalitie s including foam rollers as needed.3. Home exercise and stretchin g program.A llow 2-3 visits a week for 6 weeks.Com pleted by: 2023 024 Not available 05/14/2024 14:59:32 Procedures None recorded. Surgeries None recorded. Imaging XR, shoulder, 2 or more view - rm 1. 4V right shoulder pain 2023 024 [facility], [address], [address], [place], [address], 06/18/2024 15:51:40 XR, hip + pelvis, unilatera l, 2 or 3 view - room 210 lt hip 2023 024 [email or web address] [facility], [address], [address], [place], [address], 05/14/2024 14:59:32 Medication Orders None recorded. Patient TargetsNo targets recorded. Patient InstructionsNo instructions recorded. Reason for Referral Physical Therapist Referral for Trochanteric bursitis of left hip (THIS PRESCRIPTION EXPIRES 30 DAYS FROM DATE LISTED)PHYSICAL THERAPY REFERRAL ICD-10: M70.62(Left)1. Core stabilization, hip abductor strengthening with focus on eccentric strengthening and balance training.2. Soft tissue modalities including foam rollers as needed.3. Home exercise and stretching program.Allow 2-3 visits a week for 6 weeks.Completed by: Referring Physician: Laney Cagle, Orthopedic Surgery, [id number] Encounter Date: 04/23/2024 Results Created Date Observation Date Name Description Value Unit Range Abnormal Flag Note LastModifiedBy Organization Detail LastModifiedTime 04/12/20 24 02/01/2022 imagi lloyd/shirlene padilla tic resul t No observ ation record ed. [email or web address] Not Available 03/16 01:35:20 04/23/20 24 04/23/2024 XR, hip + pelvi s, unila teral , 2 or 3 view http:/ [email or web address] ?Encry pted=s hAaTro YD8dLq bEUv6g %2BXZw aYqtaq 0bqfl% 2Fg9IQ a4ajBk vP9nXo QUaueC m3YtLR FvZlgJ JJ8mAn HZtai3 8a7537 AC0Kqa n%2BEU KehKiQ trMwF INTERFACE [facility] [address], [place], [address], 04/23/2024 10:14:38 04/23/20 24 04/23/2024 XR, hip + pelvi s, unila teral , 2 or 3 view http:/ [email or web address] ?Encry pted=s hAaTro YD8dLq bEUv6g %2BXZw aYqtaq 0bqfl% 2Fg9IQ a4ajBk vP9nXo QUaueC m3YtLR FvZlNav[facility] Hospitaltai[facility] 8c2967 AC0Kqa n%2BEU KehKiQ trMwF INTERFACE [facility] [address], [place], [address], 04/23/2024 10:14:40 06/18/20 24 06/18/2024 XR, shoul mallika, 2 or more view http:/ [email or web address] ?Encry pted=s hAaTro YD8dLq bEUv6g %2BXZw aYqtaq 0bqfl% 2Fg9IQ a4ajBk vP9nXo QUaueC m3YtLR FvZlNaval [facility] [place]8[facility] HZtai3 4u2705 AC0Kqa HiMVKW iKiQtr MwF INTERFACE [facility] [address], [place], [address], 06/18/2024 14:13:21 06/18/20 24 06/18/2024 XR, nancyul mallika, 2 or more view http:/ [email or web address] ?Encry pted=s hAaTro YD8dLq bEUv6g %2BXZw aYqtaq 0bqfl% 2Fg9IQ a4ajBk vP9nXo QUaueC m3YtLR FvZl14 Avery Streettai3 9d2013 AC0Kqa HiMVKW iKiQtr MwF INTERFACE [facility] [address], [place], [address], 06/18/2024 14:13:23 Result Notes None recorded. Problems Name Problem SNOMED Code Status Onset Date Resolution Date Notes Provider Name and Address Organization Details Recorded Time No complaint s [id number] Active Status: 'I'; Not Available [facility] 09:12:33 Pain of left hip joint 138017236179 100 Active 2023 nikole peters [facility] 4 10:06:48 History of major orthopedi c surgery 300620974 Active 2021 Status: 'A'; Not Available formerly [facility] 4 11:14:12 Pain in right hip joint 771121193480 102 Active 2020 Problem Code: M25.551; Problem Code Type: ICD-10; Status: 'A'; Not Available formerly [facility] 4 11:14:12 Problem Notes None recorded. Procedures Surgical History Date Name Laterality Status Provider Name and Address Organization Details Recorded Time 5 Hip Kenalog 1cc Injection, L/R completed Laney Cagle PA-C [address] [place] [address], [address], [facility] 10/15/2024 14:50:11 4 Sports Shoulder Bilateral completed Shantanu Fall MD [address] [facility], [place], [address], [facility] 06/18/2024 16:07:51 4 Sports Knee 4&1 completed Arnie Peace PA-C [address] [facility], [place], [address], [facility] 04/30/2024 12:46:43 4 Hip Kenalog 1cc Injection, L/R completed Laney Cagle PA-C [address] [facility], [place], [address], [facility] 04/23/2024 22:38:34 4 Knee Kenalog 40mg 2cc Injection, L/R completed Bk Christina MD [address] [facility], [place], [address], [facility] 01/23/2024 12:26:32 4 CARPAL TUNNEL RELEASE (SURG) completed COLE RAMOS [facility] 12/27/2023 11:02:48 Imaging Results Imaging Date Name Status LastModified by [facility] Details LastModified Time 02/01/2022 imaging/diag nostic result completed [email or web address] Information not available 04/12/2024 01:35:20 04/23/2024 XR, hip + pelvis, unilateral, 2 or 3 view completed INTERFACE [facility] [address], [place], [address], 04/23/2024 10:14:38 04/23/2024 XR, hip + pelvis, unilateral, 2 or 3 view completed INTERFACE [facility] [address], [place], [address], 04/23/2024 10:14:40 06/18/2024 XR, shoulder, 2 or more view completed INTERFACE [facility] [address], [place], [address], 06/18/2024 14:13:21 06/18/2024 XR, shoulder, 2 or more view completed INTERFACE [facility] [address], [place], [address], 06/18/2024 14:13:23 Procedure Notes None recorded. Medical Equipment None Reported. Allergies Allergen ID Allergen Name Allergen Category Reaction Reaction Severity Criticality Documentation Date Start Date Code Code System Note Provider Name and Address Organization Details Recorded Time 402506 Product containin g 3-hydroxy -3-methyl glutaryl- coenzyme A reductase inhibitor (product) medicatio n Not available Not available Not available 10/16/20232019 28395 009 SNOMED Aller gyNam e: 'Stat ins'; Not Available [facility] 15:26:51 Medications Name Sig Start Date Stop Date Status Note LastModified by Organization Details LastModified Time fluticasone 250 mcg-salmete rol 50 mcg/dose blistr powdr for inhalation INHALE 1 PUFF BY MOUTH TWICE DAILY active Not Available Not Available No t Available prednisone 10 mg tablet TAKE 2 TABLETS BY MOUTH DAILY FOR 5 DAYS AND THEN 1 TABLET DAILY FOR 5 DAYS 04/23 completed Not Available Not Available Not Available doxycycline hyclate 100 mg capsule TAKE 1 CAPSULE BY MOUTH TWICE DAILY FOR 10 DAYS 07/02 completed Not Available Not Available Not Available sodium chloride 3 % for nebulizatio n INHALE 4 ML BY MOUTH VIA NEBULIZAT ION TWICE DAILY active Not Available Not Available No t Available prednisone 20 mg tablet 07/02 completed Not Available Not Available Not Available doxycycline monohydrate 100 mg tablet TAKE 1 TABLET BY MOUTH TWICE DAILY FOR 14 DAYS 07/02 completed Not Available Not Available Not Available flecainide 50 mg tablet TAKE 1 TABLET BY MOUTH TWICE DAILY active Not Available Not Available No t Available Advair Diskus 500 mcg-50 mcg/dose powder for inhalation INHALE 1 PUFF BY MOUTH TWICE DAILY active Not Available Not Available No t Available betamethaso ne dipropionat e 0.05 % topical cream APPLY A THIN LAYER TO AFFECTED AREA ON BACK TWICE DAILY FOR 2 WEEKS THEN STOP. TAKE 1 WEEK OFF AND REPEAT NEEDED active Not Available Not Available No t Available gabapentin 300 mg capsule TAKE 1 CAPSULE BY MOUTH THREE TIMES DAILY active Not Available Not Available No t Available codeine 10 mg-guaifene sin 100 mg/5 mL oral liquid TAKE 10 ML BY MOUTH EVERY 6 HOURS NEEDED FOR COUGH FOR 10 DAYS 10/15 completed Not Available Not Available Not Available metoprolol succinate ER 25 mg tablet,exte nded release 24 hr TAKE ONE-HALF TABLET BY MOUTH EVERY DAY active Not Available Not Available No t Available levalbutero l 1.25 mg/3 mL solution for nebulizatio n INHALE 1 VIAL VIA NEBULIZER TWICE DAILY active Not Available Not Available No t Available azelastine 137 mcg (0.1 %) nasal spray USE 2 SPRAYS IN EACH NOSTRIL TWICE DAILY active Not Available Not Available No t Available albuterol sulfate HFA 90 mcg/actuati on aerosol inhaler INHALE 2 PUFFS EVERY 6 HOURS NEEDED FOR SHORTNESS OF BREATH OR WHEEZING 10/15 completed Not Available Not Available Not Available ketoconazol e 2 % topical cream APPLY TOPICALLY TO THE AFFECTED AREA ONCE DAILY 10/15 completed Not Available Not Available Not Available amoxicillin 875 mg-potassiu m clavulanate 125 mg tablet TAKE 1 TABLET BY MOUTH TWICE DAILY FOR 14 DAYS 10/15 completed Not Available Not Available Not Available oxycodone 5 mg tablet TAKE 1 TABLET BY MOUTH EVERY 6 HOURS NEEDED FOR PAIN 04/23 completed Not Available Not Available Not Available valsartan 160 mg tablet TAKE 1 TABLET BY MOUTH DAILY active Not Available Not Available No t Available ciclopirox 0.77 % topical cream active Not Available Not Available Not Available rosuvastati n 10 mg tablet TAKE 1 TABLET BY MOUTH AT BEDTIME active Not Available Not Available No t Available Xarelto 20 mg tablet TAKE 1 TABLET BY MOUTH DAILY active Not Available Not Available No t Available roflumilast 250 mcg tablet TAKE 1 TABLET BY MOUTH DAILY 04/23 completed Not Available Not Available Not Available Vitals Date Recorded Body height Body mass index (BMI) Body weight Provider Name and Address Organization Details Last Updated DateTime 04/23/2024 158.75 cm 29.9 kg/m2 02676.33 g [facility] 04/23/2024 10:04:30 Date Recorded Body height Provider Name an d Address Organization Details Last Updated DateTime 04/29/2024 158.75 cm [facility] 04/29/2024 15:33:28 Date Recorded Body height Body mass index (BMI) Body weight Provider Name and Address Organization Details Last Updated DateTime 06/18/2024 158.75 cm 30.4 kg/m2 52136.11 g [facility] 06/18/2024 14:03:03 Date Recorded Body height Body mass index (BMI) Body weight Provider Name and Address Organization Details Last Updated DateTime 07/02/2024 158.75 cm 30.4 kg/m2 08256.11 g [facility] 07/02/2024 09:33:59 Date Recorded Body height Body mass index (BMI) Body weight Provider Name and Address Organization Details Last Updated DateTime 10/15/2024 158.75 cm 30.4 kg/m2 04119.11 g [facility] 10/15/2024 10:59:24 Social History None recorded. Functional Status None recorded. Mental Status None recorded. Family History Nothing Reported. Medical History No medical history recorded. Gynecological HistoryNo gynecological history recorded. Obstetrics History GPAL:G 0 P 0 0 0 0 Past Encounters Encounter ID Performer Location Encounter Start Date Encounter Closed Date Diagnosis/Indication Diagnosis SNOMED-CT Code Diagnosis ICD10 Code Diagnosis Note [id number] [facility] [address] [place] [address] 11/13/2023 11:27:33 12/06/2023 14:18:12 Carpal tunnel syndrome of left wrist 4518757587 39447 G56.02 [id number] Rukhsana Rodriguez, [facility] [address] [place] [address] 01/09/2024 09:01:00 01/09/2024 12:20:23 Postoperative visit [id number] Z48.89 Sutures are removed today without complicati on. Education regarding the involved anatomy and the surgical procedure was well received. Scar massage was demonstrat ed including a variety of movements to disperse the fibrotic tissue which, if untouched, would create a thickened area of scar. This is instructed with a handout given to the patient. Additional home exercises including tendon gliding and median nerve gliding were demonstrat ed in the office today with a handout also provided. A small amount of therapy putty was introduced and demonstrat ed with the correspond ing worksheet was provided as well. Further discussion about the MELT technique using a small ball for pillar pain with informatio n was provided. Per the surgeon , since there are no wound care complicati ons or concerns, no follow up appointmen t needed. The patient has been educated with a significan t Home Exercise Program to be completed over the next 2 weeks. The patient was instructed to contact the office if there should arise any concerns with the surgical site or if there is not sufficient functional recovery. All questions, with regards to return to functional activities , are answered prior to leaving the office today. This office visit was complete at 30 minutes. Carpal sierar katie syndrome of left wrist 4150683906 52990 G56.02 Upon welcoming the patient from the waiting room into the clinic, I am able to observe how the involved extremity is used functional ly. The patient demonstrat es light avoids use of the surgical hand for such activities as gathering personal items, and adjusting the chair. The patient shared their personal experience over the last 2 weeks living with a postoperat santos hand and modifying activities around the house. Fluctuatio ns in pain levels and the use of medication is also reviewed. The postoperat santos dressing Band-Aid is removed. The surgical wound is inspected and found to be clean and dry. The edges of the incision are approximat ed with intact sutures. Patient has intact neurovascu lar structures with only slight tenderness at the incision. No surroundin g erythema, wound drainage, warmth or signs of infection. The patient states no pain when palpating around the surgical site and the surroundin g structures . The digits on the involved hand are able to demonstrat e a nearly full composite fist. Thumb is able to flex and oppose to the small finger. Digits are able to demonstrat e full extension/ hyperexten ashley to open and flatten the palm. The wrist has nearly full flexion /extension /circumduc tion range of motion. The patient is able to demonstrat e both tip, tripod, and lateral pinch. The thenar muscle shows atrophy approximat john 50%; hypothenar at 25%. Strength of the first dorsal interossei /adductor is 3/5. The distal sensation for light touch is assessed. The patient is able to demonstrat e a positive response to light touch. The patient reports difficulti es with fine sensation as related to dexterity tasks with the thumb, index, middle fingers. [id number] MD [facility] [address] [place] [address] [address] [place] [address] 01/23/2024 08:52:43 02/26/2024 12:10:09 Osteoarthritis of right knee joint 9259147124 26723 M17.11 Osteoarthr itis of right hip joint 5720652777 16517 M16.11 [id number] IRENE Wild [address] [place] [address] [address] [place] [address] 04/23/2024 09:34:09 05/14/2024 14:59:31 Pain of left hip joint 9134764652 11603 M25.552 Trochanter ic bursitis of left hip 8394698277 16176 M70.62 Osteoarthr itis of left hip joint 4075370929 65067 M16.12 [id number] IRENE Epps [address] [place] [address] [address] [place] [address] 04/29/2024 15:20:32 05/20/2024 15:23:03 Osteoarthritis of right knee joint 7354515886 38756 M17.11 [id number] Shantanu Fall MD [facility] [address] [place] [address] 06/18/2024 13:57:46 07/15/2024 11:29:30 History of major orthopedic surgery 864657440 Z98.890 Pain of ri ght shoulder region 4973655648 M25.511 Bilateral rotator cuff arthropathy of shoulder 2535899258 2325010 M75.101 M12.811 M12.812 M75.449 [id number] Laney Cagle PA-C [facility] [address] [place] [address] 07/02/2024 09:28:35 07/26/2024 11:05:02 Trochanteric bursitis of left hip 5984139283 48737 M70.62 Osteoarthr itis of left hip joint 3094853123 85278 M16.12 [id number] Laney Cagle PA-C [facility] [address] [place] [address] 10/15/2024 10:22:37 10/15/2024 14:50:28 Trochanteric bursitis of left hip 4769854158 57435 M70.62 Osteoarthr itis of left hip joint 1245886751 46724 M16.12 Health Concerns Section Related Observation LastModified by Organization Detai ls LastModified Time None Recorded Concern Status LastModified by Organization Details LastModified Time None Recorded Advance Directives Directive None Recorded Payers Encounter Date Sequence Insurance Name Policy Number Policy Barragan Covered Member ID Barragan Member ID Guarantor Name 04/23/2024 1 [place] [employer] [place] Lainey Floyd [id number] 3 Lainey Floyd 04/23/2024 2 [place] [id number] Lainey Floyd [id number] Lainey Floyd 04/29/2024 1 [place] Lainey Floyd [id number] 3 Lainey Floyd 04/29/2024 2 [place] [id number] Lainey Floyd [id number] Lainey Floyd 06/18/2024 1 [place] Lainey Floyd [id number] 3 Lainey Floyd 06/18/2024 2 [place] [id number] Lainey Limonon [id number] Lainey Limonon 07/02/2024 1 [place] Lainey Floyd [id number] 3 Lainey Limonon 07/02/2024 2 [place] [id number] Lainey Limonon [id number] Lainey Limonon 10/15/2024 1 [place] Lainey Floyd [id number] 3 Lainey Limonon 10/15/2024 2 [place] [id number] Lainey Limonon [id number] Lainey Floyd Notes Date Note Type Note Provider Name and Address Organization Details Recorded Time 04/23/2024 text/html I am seeing the patient today under the supervision of Dr. Jerez who was available but who did not see the patient. HPI: Lainey presents to the office today for an evaluation of her left hip. She has known end-stage osteoarthritis of the right hip. She indicates that recently she began to notice lateral sided hip discomfort. Her symptoms began after she was on vacation. She indicates that she was sitting in the low beachchair for an extended period of time and also climbed more stairs than normal. Her left hip is most painful with sleeping at night, prolonged sitting, and getting up from a seated position. She denies any groin pain or radicular symptoms. She takes gmft-zsg-rjvital medication intermittently for her pain. She is here today for treatment recommendations. PMH/PSH/MEDS/ALL/FMH/S OC HX/ROS are reviewed in detail per my medical intake sheet. General Exam: Vital signs are as noted below Mental status: Alert and lucid. Normal insight, affect and grooming. OBSTETRICS TECH: Gross motor coordination is intact. No spasticity or clonus noted. EXAMINATION: The patient is well appearing and in no apparent distress. Alert and oriented x3. Gait is antalgic. {{Right hip reveals Left hip reveals* Bilateral hips reveal}} no obvious deformity upon inspection. No edema, erythema, ecchymosis, or lesions. Neurovascularly intact. Tenderness present over the greater trochanter. ROM slightly restricted endrange. Negative impingement sign, Hollis's, Stinchfield test, and straight leg raise. No instability. 5/5 strength. Calf/leg compartments soft and compressible. {{Right hip* Left hip}} hip reveals no obvious deformity upon inspection. No edema, erythema, ecchymosis, or lesions. Neurovascularly intact. No localized tenderness. ROM is restricted with internal and external rotation. Impingement, Hollis's, and Stinchfield tests are positive. Straight leg raise negative. No instability. 5/5 strength. Calf/leg compartments soft and compressible. Lumbar spine reveals no obvious deformities upon inspection. No edema, erythema, ecchymosis, or lesions. ROM is full and pain free. Straight leg raise is negative in the sitting and supine position. No focal neurologic deficits in the lower extremities. X-rays ordered, obtained and reviewed at [facility] today include an AP pelvis and lateral view of {{right hip left hip* bilateral hips}}. Images reveal mild to moderate osteoarthritis of the left hip joint. There is severe end-stage osteoarthritis of the right hip joint. No acute fracture or lesion. IMPRESSION: {{Right Left* Bilatera l}} hip greater trochanteric bursitis and osteoarthritis PLAN: The patient was thoroughly counseled today regarding their hip condition, its natural history, and the treatment options including physical therapy, medication, and a corticosteroid injection. The patient is interested in receiving an injection with corticosteroid. {{Right trochanteric region was Left trochanteric region was* Bilateral trochanteric regions were}} prepped sterilely, and injection was administered at the point of maximum tenderness utilizing 40mg of Kenalog and 4cc of 0.25% Marcaine. The patient tolerated the procedure well. Post-injection precautions were discussed. A prescription for physical therapy was also provided. I will see her back in the office in 2 months for recheck. All questions answered. Laney Cagle PA-C [address] [place] [address] [address], [place], [address], [facility] 04/24/2024 15:23:30 04/29/2024 text/html I am seeing the patient today under the supervision of Dr. Dos Santos who was available but who did not see the patient. HPI:Patient presents today follow-up regarding their {{Left Right* Bi-later al}} knee. They have had difficulty up and down stairs sitting standing.Previous injection 3 months ago which gave good relief until recently. Problems ambulating. Dgqj-nfe-fzmqgns medications are helping somewhat but not significantly. Pain is constant aching sometimes sharp pain with giving out sensations. Past family, medical, social history and review of systems has been reviewed, updated and is located in the patient? s chart. Examination:The patient is well appearing and in no apparent distress. Alert and oriented x3. Gait is symmetric. Examination of the {{Left Right* Bi-later al}} knee reveals no evidence of any edema, erythema, or warmth. No Deformity. Range of motion of the knee limited with mild discomfort at the end ranges. No effusion. Does have some tenderness to palpation about the medial hemijoint line. No tenderness to palpation about the lateral hemijoint line. Patellofemoral crepitus is noted. mild lateral ligamentous laxity. Negative Maury? s . Calf is supple and nontender. Neurovascularly intact distally. Impression:{{Left Righ t* Bi-lateral}} Knee osteoarthritis Plan:We discussed the role of conservative management including medications, physical therapy, injection and bracing. At this point the patient was to proceed with injection. Please see procedure note. They will follow up with us as scheduled. Arnie Peace PA-C [address], [place], [address], [facility] 04/30/2024 12:47:00 06/18/2024 text/html Chief complaint: Bilateral shoulder painInterval history: Patient last seen in September 2023. Bilateral subacromial steroid injections were administered at that visit. She reports the injections were helpful. Shoulder started to become painful about 2 weeks prior after using lawnmower. To recap last visit from September 2023:: Patient following up today for bilateral shoulder pain. She was last seen for this condition March 09, 2023. She has bilateral chronic rotator cuff tears. Kimberly had several injections which have been helpful. She complains of bilateralshoulder pain along with left-hand numbness. She has been following with Dr. Shannan fernandes had 2 injections for carpal tunnel Past family, medical, social history and review of systems has been reviewed,updated and signed by me and is located in the patient? s chart. Examination:The patient is well appearing and in no apparent distress. Alert andoriented x3. Gait is symmetric. Vital signs per intake sheet.Examination of the right shoulder reveals no effusion erythema or warmth. Rotatorcuff atrophy Forward flexion to 40 abduction [id number] rotation to 20 internalrotation to 20. Has 3/5 strength of the supraspinatus, 3/5 strength of theinfraspinatus, 3/5 strength of the subscap, 5/5 strength in the biceps tendon. Positiveimpingement arc and - cross body. No tenderness of the AC joint or in the bicipitalgroove.Examin ation of the left shoulder reveals no effusion erythema or warmth. Rotator cuffatrophy.. Forward flexion 120 abduction to 80 external rotation to 50 internal rotationto 40. Significant crepitus with passive range of motion Has 3/5 strength of thesupraspinatus, 3/5strength of the infraspinatus, 35 strength of the subscap, 5/5strength in the biceps tendon. Positive impingement arc and - cross body. Notenderness of the AC joint or in the bicipital groove. X-rays 4 views {{ordered, obtained, and personally reviewed today* previously obtained and personally reviewed today}} AP, Grashey, scapular Y, axillary views {{right* left}} shoulder demonstrate: Cranial migration humeral head consistent with rotator cuff tear arthropathy with advanced glenohumeral arthritis Impression: Bilateral shoulder pain-rotator cuff tear arthropathyPlan: Patient presents today with recurrent bilateral shoulder pain after previous good response to steroid injection. We discussed options including continued conservative care, activity modification, home exercises, PT, injections, or surgery: Reverse total shoulder arthroplasty. Patient requested to continue with nonop treatment. Home exercise program was provided and bilateral steroid injections were administered. We discussed the injections can be repeated up to 4 times per year as symptoms dictate. All questions answered. Follow-up as symptoms dictate. Shantanu Fall MD [address] [facility] [address], [place], [address], [facility] 06/18/2024 16:08:47 07/02/2024 text/html I am seeing the patient today under the supervision of Dr. Jerez who was available but who did not see the patient. HPI: Lainey presents to the office today for a recheck of her left hip. She has known end-stage osteoarthritis of the right hip. She was diagnosed with left hip greater trochanteric bursitis and osteoarthritis at her last visit in April. At that time she received a cortisone injection for bursitis and was provided with a physical therapy prescription. She indicates that her symptoms are greatly improved. She is not noticing much discomfort in the left hip currently. She denies any new systemic complaints. PMH/PSH/MEDS/ALL/FMH/S OC HX/ROS are reviewed in detail per my medical intake sheet. General Exam: Vital signs are as noted below Mental status: Alert and lucid. Normal insight, affect and grooming. OBSTETRICS TECH: Gross motor coordination is intact. No spasticity or clonus noted. EXAMINATION: The patient is well appearing and in no apparent distress. Alert and oriented x3. Gait is antalgic. {{Right hip reveals Left hip reveals* Bilateral hips reveal}} no obvious deformity upon inspection. No edema, erythema, ecchymosis, or lesions. Neurovascularly intact. Tenderness present over the greater trochanter. ROM slightly restricted endrange. Negative impingement sign, Hollis's, Stinchfield test, and straight leg raise. No instability. 5/5 strength. Calf/leg compartments soft and compressible. {{Right hip* Left hip}} hip reveals no obvious deformity upon inspection. No edema, erythema, ecchymosis, or lesions. Neurovascularly intact. No localized tenderness. ROM is restricted with internal and external rotation. Impingement, Hollis's, and Stinchfield tests are positive. Straight leg raise negative. No instability. 5/5 strength. Calf/leg compartments soft and compressible. Lumbar spine reveals no obvious deformities upon inspection. No edema, erythema, ecchymosis, or lesions. ROM is full and pain free. Straight leg raise is negative in the sitting and supine position. No focal neurologic deficits in the lower extremities. X-rays ordered, obtained and reviewed at [facility] previously include an AP pelvis and lateral view of {{right hip left hip* bilateral hips}}. Images reveal mild to moderate osteoarthritis of the left hip joint. There is severe end-stage osteoarthritis of the right hip joint. No acute fracture or lesion. IMPRESSION: {{Right Left* Bilatera l}} hip greater trochanteric bursitis and osteoarthritis PLAN: The patient has responded favorably to conservative treatment for her hip. She is not having much pain in her left hip currently. She does not feel as if she needs a repeat cortisone injection. I informed her to monitor her symptoms and if her pain returns she may call the office to schedule a bursa cortisone injection. All questions answered. Laney Cagle PA-C [address] [place] [address] [address], [place], [address], [facility] 07/02/2024 10:14:35 10/15/2024 text/html I am seeing the patient today under the supervision of Dr. Jerez who was available but who did not see the patient. HPI: Lainey presents to the office today for a recheck of her left hip. She has known end-stage osteoarthritis of the right hip. She was diagnosed with left hip greater trochanteric bursitis and osteoarthritis at a previous visit. Her most recent bursa cortisone injection was in April. She recently began noticing discomfort over the lateral hip which is most bothersome at night. She is here for repeat cortisone injection. PMH/PSH/MEDS/ALL/FMH/S OC HX/ROS are reviewed in detail per my medical intake sheet. General Exam: Vital signs are as noted below Mental status: Alert and lucid. Normal insight, affect and grooming. OBSTETRICS TECH: Gross motor coordination is intact. No spasticity or clonus noted. EXAMINATION: The patient is well appearing and in no apparent distress. Alert and oriented x3. Gait is antalgic. {{Right hip reveals Left hip reveals* Bilateral hips reveal}} no obvious deformity upon inspection. No edema, erythema, ecchymosis, or lesions. Neurovascularly intact. Tenderness present over the greater trochanter. ROM slightly restricted endrange. Negative impingement sign, Hollis's, Stinchfield test, and straight leg raise. No instability. 5/5 strength. Calf/leg compartments soft and compressible. {{Right hip* Left hip}} hip reveals no obvious deformity upon inspection. No edema, erythema, ecchymosis, or lesions. Neurovascularly intact. No localized tenderness. ROM is restricted with internal and external rotation. Impingement, Hollis's, and Stinchfield tests are positive. Straight leg raise negative. No instability. 5/5 strength. Calf/leg compartments soft and compressible. Lumbar spine reveals no obvious deformities upon inspection. No edema, erythema, ecchymosis, or lesions. ROM is full and pain free. Straight leg raise is negative in the sitting and supine position. No focal neurologic deficits in the lower extremities. X-rays ordered, obtained and reviewed at [facility] previously include an AP pelvis and lateral view of {{right hip left hip* bilateral hips}}. Images reveal mild to moderate osteoarthritis of the left hip joint. There is severe end-stage osteoarthritis of the right hip joint. No acute fracture or lesion. IMPRESSION: {{Right Left* Bilatera l}} hip greater trochanteric bursitis and osteoarthritis PLAN: The patient was thoroughly counseled today regarding their hip condition, its natural history, and the treatment options including physical therapy, medication, and a corticosteroid injection. The patient is interested in receiving an injection with corticosteroid. {{Right trochanteric region was Left trochanteric region was* Bilateral trochanteric regions were}} prepped sterilely, and injection was administered at the point of maximum tenderness utilizing 40mg of Kenalog and 4cc of 0.25% Marcaine. The patient tolerated the procedure well. Post-injection precautions were discussed. She is aware that this injection can be repeated in 3 months if needed. All questions answered. Laney Cagle PA-C [address], [place], [address], [place] [facility] 10/15/2024 14:50:25 OBGyn Episode No OBEpisode recorded.
--- OUTSIDE RECORDS SUMMARY | 2024-10-23 13:13 | XMS_ITS ---
[facility] Address [address] [place] [address] Care Team Providers Care Podiatric Surgeon Name Role Phone Luis Alfredo BRODY, Yareli Primary Care Provider Unava ilable Black, Lani Unavailable [phone] Allergies No Known Allergies REASON FOR VISIT Painful nail(s) aggrevated by shoes causing difficulty standing/walking, Ingrown Nail, heel pain Medications Medication SIG (Take, Route, Frequency, Duration) Notes Start Date End Date Status Betamethasone Dipropionate 0.05 % 1 application to affected area Externally Once a day for 30 days 02/25/2019 Not-Taking Ketoconazole 2 % 1 application Externally Once a day for 30 days 12/01/2022 Not-Taking Ciclopirox Not-Takin g Clindamycin HCl 300 MG 1 capsule Orally every 12 hrs for 7 day(s) 05/06/2024 Not-Taking Doxycycline Not-Taki ng Xarelto 25 Active Rosuvastatin Calcium Active Biofreeze Cool The Pain XL 5 % 1 patch as needed Externally Three times a day 10/05/2023 Active Tubular compression stockings as directed wear daily 10/11/2021 Activ e zzzCompression Stockings 20-30mm Hg . . . for . Not-Taking Advair Diskus Active Losartan Potassium 100 MG 1 tablet Orall y Once a day for 30 day(s) Active Metoprolol Succinate ER Active Flecainide Acetate 50 MG as directed Ora lly twice a day Active Ampicillin Active Ciclopirox Olamine N ot-Taking vitamin Not-Taking Albuterol PRN Active Calcium Not-Taking LamISIL 250 MG 1 tablet Orally Once a day for 90 days 02/28/2014 Not-Taking Ciclopirox Olamine 0.77% external Apply to effected areas twice a day for 30 days 06/01/2020 Not-Taking Ketoconazole 2 % 1 application to affected area Externally Once a day for 14 days 05/15/2017 Not-Taking Betamethasone Dipropionate Not-Taking Ketoconazole 2 % 1 application to affected area Externally Once a day for 30 days 11/02/2016 Not-Taking Ciclopirox Olamine 0.77% external Apply to effected areas twice a day for 30 days 11/02/2016 Not-Taking Skin Prep Wipes - as directed 06/01/2020 Not-Taking Roflumilast 250 MCG Oral for 14 Not-Taking amLODIPine Besylate 5 MG 1 tablet Orally Once a day for 30 day(s) Not-Taking zzzCompression Stockings 20-30mm Hg . . . for . 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) Active confirmed Vital Signs Blood pressure systolic 120 mm Hg 08/26/19 25 Blood pressure diastolic 68 mm Hg 025 Height 5 ft 3 in in 08/26/2024 Weight 166 lbs 08/26/2024 BMI 29.4 kg/m2 08/26/2024 Procedures Procedure Date Ordered Date Performed Result Body Sit e 30400-XYKYWJV NAIL, 6 OR MORE 08/26/2024 N/A 77985-Zrnwsntb Plate 08/26/2024 N/A Encounters Encounter Location Date Provider Diagnosis [facility] [place] [address] [place] [address] 08/26/2024 Lani Ricketts Tinea unguium B35.1 ; Pressure injury of right heel, unstageable L89.610 ; Pain in right toe(s) M79.674 ; Pain in left toe(s) M79.675 and Ingrown nail L60.0 Assessments Encounter Date Diagnosis (ICD Code) Assessment Notes Treatment Notes Treatment Clinical Notes Section Notes 08/26/2024 Tinea unguium (ICD-10 - B35.1) 08/26/2024 Pressure injury of right heel, unstageable (ICD-10 - L89.610) 08/26/2024 Pain in right toe(s) (ICD-10 - M79.674) 08/26/2024 Pain in left toe(s) (ICD-10 - M79.675) 08/26/2024 Ingrown nail (ICD-10 - L60.0) 08/26/2024 Other Plan Of Treatment Pending Test Test Name Order Date [id number]-MJWWREB NAIL, 6 OR MORE 08/26/2024 [id number]-Nccptucn Plate 08/26/2024 Next Appt Details Follow Up: prn, Reason: Provider Name:Lani Ricketts , 11/25/2024 02:30:00 PM, [address] [place] [address], [phone], Procedure Notes * Category Sub-Category Detail Notes Nail Avulsion Procedure A fine sterile e levator was placed between the eponychium, nail fold, and nail plate to separate the structures. A sterile nail splitter, and/or sterile 316 blade, was then used to longitudinally section the nail along its entire length through the eponychium to the area under the nail fold. The offending portion of nail was from the nail bed with a rolling action and then removed with a hemostat. No underlying bone was identified. There was minimal bleeding as hemostasis was achieved through the temporary use of either a digital tourniquet or the aforementioned local with epinephrine. A bacitracin sterile dressing was applied. Local wound aftercare instructions were discussed and dispensed. The patient was informed of both conservative and future surgical procedures to prevent recurrence. Tylenol or Motrin was recommended for pain or discomfort (37663), Pt DEFERS matricectomy Anesthesia , was accomplished T OPICALLY with Lidocaine Hydrochloride Jelly 2 percent Location , Medial nail border , TA Debride Nail 6-10 Nail debridement Due to the cl inical pathology outlined in the exam findings, performance of this nail treatment is medically necessary as its management by an unskilled/untrained nonprofessional would put this patients foot and overall health at risk. Therefore, debridement to affected nail(s), as described in exam ( T1, T2, T3, T4, T5, T6, T7, T8, T9,), was performed exclusively by the physician of record to reduce/remove overall nail length, girth, thickness, subungual debris, and necrotic tissue, by manual and/or electrical means through the use of a nail nipper and/or dremel-type precision thread grinder operator, to a more viable healthy nail plate or bed tissue 6-10 nails in total. Silver nitrate was used for any petechial bleeding as necessary. Definitive antifungal treatment options, both pharmaceutical and surgical, have been reviewed and discussed with the patient. The patient solely prefers the use of intermittent/as needed professional debridement services for their nail condition and understands the need for additional periodic treatments to maintain effectiveness in symptomatic relief - 63471 Patient chooses debridement treatmen t only; no pharmaceutical tx Progress Notes * Lainey MORRELL RDOB:[birth year] (84 yo F)Acc No.[id number]:08/26/2024 Progress Note Patient:?EVERETT Lainey R Provider:?Lani Ricketts DPM :1940???Age:84 Y???Sex:Female D ate:08/26/2024 Address:[address] [place] [id number] Pcp:Yareli Lobato NP Subjective: * Chief Complaints: * ???Painful nail(s) aggrevate d by shoes causing difficulty standing/walkingIngrown NailHeel pain * HPI: ???Painful Nails:?Pt States Last PCP Visit:?Date:?08/01/2024 ???Heel pain:?Location:?LEFT.?Aggravated:?any pressure when in bed.? * ROS:?General/Constitutional:?Nausea?denies.?Vomiting?denies.?Hunger Thirst?denies.?Loss appetite?denies.?Chills?denies.?Fatigue?denies.?Fever?denies.?Night Sweats?denies.?Unexplained weight loss?denies.?Unexplained [...] History:?Mother: dece ased, foot problems, diagnosed with Other malignant neoplasm of unspecified site, Unspecified essential hypertension, Family history of arthritis.?Father: , diagnosed with Unspecified heart disease.? * Social History:?Tobacco Use:?Tobacco Use/Smoking?Are you a:?nonsmoker ?Additional Findings: Tobacco Non-User?Current non-smoker ?Tobacco use other than smoking?Are you an other tobacco user??No * Medications:?TakingAlbuterol , Notes to Pharmacist: PRNAmpicillin Losartan Potassium 100 MG Tablet 1 tablet Orally Once a day Advair Diskus Flecainide Acetate 50 MG Tablet as directed Orally twice a day Metoprolol Succinate ER Rosuvastatin Calcium Xarelto 25 Tubular compression stockings as directed wear daily Biofreeze Cool The Pain XL 5 % Patch 1 patch as needed Externally Three times a day Taking Albuterol , Notes to Pharmacist: PRNTaking Ampicillin Taking Losartan Potassium 100 MG Tablet 1 tablet Orally Once a day Taking Advair Diskus Taking Flecainide Acetate 50 MG Tablet as directed Orally twice a day Taking Metoprolol Succinate ER Taking Rosuvastatin Calcium Taking Xarelto 25 Taking Tubular compression stockings as directed wear daily Taking Biofreeze Cool The Pain XL 5 % Patch 1 patch as needed Externally Three times a day Not-Taking/PRNzzzCompression Stockings 20-30mm Hg 1 pair closed toe- knee high . . . Clindamycin HCl 300 MG Capsule 1 capsule Orally every 12 hrs Doxycycline Ketoconazole 2 % Cream 1 application Externally Once a day Betamethasone Dipropionate 0.05 % Cream 1 application to affected area Externally Once a day Ciclopirox Kenalog Multivitamin Tolnaftate 1 % Cream 1 application Externally Once a day Urea 40 % Cream 1 application to affected area Externally Twice a day Roflumilast 250 MCG Tablet Oral amLODIPine Besylate 5 MG Tablet 1 tablet Orally Once a day Lisinopril 5 MG Tablet 1 tablet Orally Once a day zzzCompression Stockings 20-30mm Hg 1 pair closed toe- knee high . . . Skin Prep Wipes - Miscellaneous as directed Ciclopirox Olamine 0.77% Cream external Apply to effected areas twice a day Betamethasone Dipropionate Ketoconazole 2 % Cream 1 application to affected area Externally Once a day Ciclopirox Olamine 0.77% Cream external Apply to effected areas twice a day Ketoconazole 2 % Cream 1 application to affected area Externally Once a day vitamin Ciclopirox Olamine Calcium LamISIL 250 MG Tablet 1 tablet Orally Once a day Medication List reviewed and reconciled with the patientNot-Taking/PRN zzzCompression Stockings 20-30mm Hg 1 pair closed toe- knee high . . . Not-Taking/PRN Clindamycin HCl 300 MG Capsule 1 capsule Orally every 12 hrs Not-Taking/PRN Doxycycline Not-Taking/PRN Ketoconazole 2 % Cream 1 application Externally Once a day Not-Taking/PRN Betamethasone Dipropionate 0.05 % Cream 1 application to affected area Externally Once a day Not-Taking/PRN Ciclopirox Not-Taking/PRN Kenalog Not-Taking/PRN Multivitamin Not-Taking/PRN Tolnaftate 1 % Cream 1 application Externally Once a day Not-Taking/PRN Urea 40 % Cream 1 application to affected area Externally Twice a day Not-Taking/PRN Roflumilast 250 MCG Tablet Oral Not-Taking/PRN amLODIPine Besylate 5 MG Tablet 1 tablet Orally Once a day Not-Taking/PRN Lisinopril 5 MG Tablet 1 tablet Orally Once a day Not- Taking/PRN zzzCompression Stockings 20-30mm Hg 1 pair closed toe- knee high . . . Not- Taking/PRN Skin Prep Wipes - Miscellaneous as directed Not-Taking/PRN Ciclopirox Olamine 0.77% Cream external Apply to effected areas twice a day Not-Taking/PRN Betamethasone Dipropionate Not-Taking/PRN Ketoconazole 2 % Cream 1 application to affected area Externally Once a day Not-Taking/PRN Ciclopirox Olamine 0.77% Cream external Apply to effected areas twice a day Not-Taking/PRN Ketoconazole 2 % Cream 1 application to affected area Externally Once a day Not-Taking/PRN vitamin Not-Taking/PRN Ciclopirox Olamine Not-Taking/PRN Calcium Not-Taking/PRN LamISIL 250 MG Tablet 1 tablet Orally Once a day Medication List reviewed and reconciled with the patient * Allergies:?N.K.D.A.yes[Aller gies Verified] Objective: * Vitals:?Ht: 5 ft 3 in, Wt: 1 66, BMI: 29.4, Shoe size: 9.5, BP: 120/68 mm Hg, Wt- k.3 kg. * Examination: ???General Examination: ?GENERAL APPEARANCE:?Reveals a pleasant, alert, well nourished, well- developed, well hydrated individual, who demonstrates proper attention to hygiene/body habitus, and is in no acute distress ,.?Nails: ?NAILS are:?Elongated, overgrown, dystrophic, lytic, greater than 3mm thick, discolored and friable with crumbly malodorous subungual debris, with pain on palpation , T1, T2, T3, T4, T5, T6, T7, T8, T9.?Dermatologic: ?SKIN FINDINGS:?Skin shows sign(s) of localized erythema mild edema with POP right plantar heel, no break in the integument noted no fissures noted.?Vascular: ?DP PULSES (B):?2/4, B/L.?PT PULSES (B):?2/4, B/L.?Ingrown Nail: ?INSPECTION:?Reveals nail incurvation, pain on palpation, groove hypertrophy, groove ischemia, Medial nail border, TA.? Assessment: * Assessment: 1.?Tinea unguium - B35.1???2 .?Pressure injury of right heel, unstageable - L89.610 (Primary)???3.?Pain in right toe(s) - M79.674???4.?Pain in left toe(s) - M79.675???5.?Ingrown nail - L60.0??? Plan: * Treatment: 2.?Ingrown nail?Procedure: [id number]-Vxkfuxrn Plate * Procedures:?Debride Nail 6-10:?Nail debridement?Due to the clinical pathology outlined in the exam findings, performance of this nail treatment is medically necessary as its management by an unskilled/untrained nonprofessional would put this patients foot and overall health at risk. Therefore, debridement to affected nail(s), as described in exam ( ?T1, T2, T3, T4, T5, T6, T7, T8, T9,), was performed exclusively by the physician of record to reduce/remove overall nail length, girth, thickness, subungual debris, and necrotic tissue, by manual and/or electrical means through the use of a nail nipper and/or dremel-type precision thread grinder operator, to a more viable healthy nail plate or bed tissue 6-10 nails in total. Silver nitrate was used for any petechial bleeding as necessary. Definitive antifungal treatment options, both pharmaceutical and surgical, have been reviewed and discussed with the patient. The patient solely prefers the use of intermittent/as needed professional debridement services for their nail condition and understands the need for additional periodic treatments to maintain effectiveness in symptomatic relief - 73146.?Patient chooses ?debridement treatment only; no pharmaceutical tx.?Nail Avulsion:?Location?, Medial nail border, TA.?Anesthesia?, was accomplished TOPICALLY with Lidocaine Hydrochloride Jelly 2 percent.?Procedure?A fine sterile elevator was placed between the eponychium, nail fold, and nail plate to separate the structures. A sterile nail splitter, and/or sterile 316 blade, was then used to longitudinally section the nail along its entire length through the eponychium to the area under the nail fold. The offending portion of nail was from the nail bed with a rolling action and then removed with a hemostat. No underlying bone was identified. There was minimal bleeding as hemostasis was achieved through the temporary use of either a digital tourniquet or the aforementioned local with epinephrine. A bacitracin sterile dressing was applied. Local wound aftercare instructions were discussed and dispensed. The patient was informed of both conservative and future surgical procedures to prevent recurrence. Tylenol or Motrin was recommended for pain or discomfort (63639), Pt DEFERS matricectomy.? * Procedure Codes:?61474 Avuls ion Plate, [place]: [place] [address] DEBRIDE NAIL, 6 OR MORE, Modifiers: XS * Preventive Medicine:? ??Counseling:?Discussion:?-13: Office or other outpatient visit for the evaluation and management of an established patient, which required a medically appropriate history and/or examination and LOW level of DECISION MAKING for: 1 STABLE ACUTE UNCOMPLICATED PROBLEM, 2 OR MORE MINOR PROBLEMS, OR 1 STABLE CHRONIC PROBLEM, THAT POSE(S) A LOW RISK FOR MORBIDITY/MORTALITY. The visit on the day of the [...] have encouraged the patient to call the office.?Treatment:?The plan is to treat this patient with conservative and restorative nonsurgical treatment to help alleviate the patient's symptomatology by utilizing some or all of the standard podiatric medical care - e.g.- palliation, orthotics, injections, physical therapy and the use of padding and strapping.Short term goals: Our plan is to decrease pain and inflammation, to improve ambulation, to allow the patient to return to normal activities and work, and to prevent further disability.FPC goals: Our plan is for the patient to resume normal foot function, be weight bearing, and to prevent surgical intervention. We will reevaluate the patients progress as needed until symptoms complex subsides or is resolved- recomm gel socks to reduce the presure when pt is in bed - socks are found on [employer] for the pt.? ??Screening/Special Tests:?Fall Risk?Screening:?No falls in the past year ?FALLS: Screening for Future Fall Risk?Have you had any falls with injury in the past year??No * Follow Up:?prn * Images: * Sign off status: Completed true * Provider:?Lani Ricketts DPM Date:?2024 Generated for Violet desai/Sylvester/Dyllan on:?10/23/2024 01:13 PM EDT History and Physical Notes * HPI (History of Present Illness) Category Sub-Category Detail Notes Category Not es Heel pain Location: LEFT Aggravated: any pressure when in bed Painful Nails Pt States Last PCP Visit: Date:: 08/01/2024 Examination Category Sub-Category Detail Notes Category Not es Ingrown Nail INSPECTION: Reveals nail inc urvation, pain on palpation, groove hypertrophy, groove ischemia, Medial nail border, TA Dermatologic SKIN FINDINGS: Skin shows sign( s) of localized erythema mild edema with POP right plantar heel, no break in the integument noted no fissures noted General Examination GENERAL APPEARANCE: Reveals a pleasant, alert, well nourished, well-developed, well hydrated individual, who demonstrates proper attention to hygiene/body habitus, and is in no acute distress , Vascular DP PULSES (B): 2/4, B/L PT PULSES (B): 2/4, B/L Nails NAILS are: Elongated, overg rown, dystrophic, lytic, greater than 3mm thick, discolored and friable with crumbly malodorous subungual debris, with pain on palpation , T1, T2, T3, T4, T5, T6, T7, T8, T9
--- OUTSIDE RECORDS SUMMARY | 2024-10-23 13:13 | XMS_ITS ---
Author Organization [facility] Re[address] [place] Address [address] [place] [address] Care Team Providers Care Admissions Counselor Name Role Phone Luis Alfredo BRODY, Yareli Primary Care Provider Unava ilable Black, Lani Unavailable [phone] Allergies No Known Allergies REASON FOR VISIT Possible Infection, open sore left heel, Open sore - Toe Medications Medication SIG (Take, Route, Frequency, Duration) Notes Start Date End Date Status LamISIL 250 MG 1 tablet Orally Once a day for 90 days 02/28/2014 Not-Taking Calcium Not-Taking Ciclopirox Olamine N ot-Taking vitamin Not-Taking Ketoconazole 2 % 1 application to affected area Externally Once a day for 30 days 11/02/2016 Not-Taking Ciclopirox Olamine 0.77% external Apply to effected areas twice a day for 30 days 11/02/2016 Not-Taking Ketoconazole 2 % 1 application to affected area Externally Once a day for 14 days 05/15/2017 Not-Taking Betamethasone Dipropionate Not-Taking Ciclopirox Olamine 0.77% external Apply to effected areas twice a day for 30 days 06/01/2020 Not-Taking Skin Prep Wipes - as directed 06/01/2020 Not-Taking Lisinopril 5 MG 1 tablet Orally Once a day Not-Taking amLODIPine Besylate 5 MG 1 tablet Orally Once a day for 30 day(s) Not-Taking Roflumilast 250 MCG Oral for 14 Not-Taking Urea 40 % 1 application to affected area Externally Twice a day for 30 days 07/12/2021 Not-Taking zzzCompression Stockings 20-30mm Hg . . . for . Not-Taking Tolnaftate 1 % 1 application Externally Once a day for 30 days 07/05/2021 Not-Taking Multivitamin Not-Samuel ing Kenalog Not-Taking Ciclopirox Not-Takin g Betamethasone Dipropionate 0.05 % 1 application to affected area Externally Once a day for 30 days 02/25/2019 Not-Taking Clindamycin HCl 300 MG 1 capsule Orally every 12 hrs for 7 day(s) 05/06/2024 Active Biofreeze Cool The Pain XL 5 % 1 patch as needed Externally Three times a day 10/05/2023 Active zzzCompression Stockings 20-30mm Hg . . . for . Active Ketoconazole 2 % 1 application Externally Once a day for 30 days 12/01/2022 Not-Taking Doxycycline Not-Taki ng Tubular compression stockings as directed wear daily 10/11/2021 Activ e Xarelto 25 Active Rosuvastatin Calcium Active Metoprolol Succinate ER Active Flecainide Acetate 50 MG as directed Ora lly twice a day Active Advair Diskus Active Losartan Potassium 100 MG 1 tablet Orall y Once a day for 30 day(s) Active Social History Tobacco Use: Social History Observation Description Date Details (start date - stop date) Never Smoker NA - NA Tobacco Use/Smoking Question Answer Notes Are you a: nonsmoker Additional Findings: Tobacco Non-User Current no n-smoker Tobacco use other than smoking: Question Answer Notes Are you an other tobacco user? No Vital Signs Blood pressure systolic 128 mm Hg 05/30/20 24 Blood pressure diastolic 75 mm Hg 024 Height 5 ft 3 in in 05/30/2024 Weight 169 lbs 05/30/2024 BMI 29.93 kg/m2 05/30/2024 Procedures Procedure Date Ordered Date Performed Result Body Sit e 74681- Debride <25 sq cm 05/30/2024 N/A Encounters Encounter Location Date Provider Diagnosis [facility] [place] [address] [place] [address] 05/30/2024 Lani Black Abscess of left foot L02.612 and Skin ulcer of left heel, limited to breakdown of skin L97.421 Assessments Encounter Date Diagnosis (ICD Code) Assessment Notes Treatment Notes Treatment Clinical Notes Section Notes 05/30/2024 Abscess of left foot (ICD-10 - L02.612) 05/30/2024 Skin ulcer of left heel, limited to breakdown of skin (ICD-10 - L97.421) 05/30/2024 Other Plan Of Treatment Pending Test Test Name Order Date 23015- Debride <25 sq cm 05/30/2024 Next Appt Details Follow Up: 3-4w, Reason: Provider Name:Lani Ricketts , 11/25/2024 02:30:00 PM, [address] [place], [address], Procedure Notes * Category Sub-Category Detail Notes Debride skin< 25 sq cm Open wound Physician of record performed open wound selective debridement of first 25 sq cm or less, of devitilized necrotic/nonviable soft tissue, fibrin, and exudate extending from the epidermis through the dermis, utilizing sharp dissection with sterile 15 blade, and/or tissue nippers. Hemostasis was controlled through direct pressure. Sterile antibiotic dressing applied, ANESTHESIA was not required due to presence of NEUROPATHY. Character of the wound post debridement is stable (29941) Progress Notes * Lainey MORRELL RDOB:[birth year] (84 yo F)Acc No.[id number]:05/30/2024 Progress Notes Patient:?Everett Lainey R Provider:?Lani FILIBERTO Ricketts :1940???Age:84 Y???Sex:Female D ate:05/30/2024 Address:[address] [place], [place] [address] Pcp:Yareli Lobato NP Subjective: * Chief Complaints: * ???Possible InfectionOpen so re left heelOpen sore - Toe * HPI: ???Skin problems:?Treatments:?none.?Possible Infection:?Course:?improved.?Treatments:?medication ( clindamycin ),woundcare.? * ROS:?General/Constitutional:?Nausea?denies.?Vomiting?denies.?Hunger Thirst?denies.?Loss appetite?denies.?Chills?denies.?Fatigue?denies.?Fever?denies.?Night Sweats?denies.?Unexplained weight loss?denies.?Unexplained [...] walking. ?Marital status: . 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 * Medications:?TakingLosartan Potassium 100 MG Tablet 1 [...] patch as needed Externally Three times a dayClindamycin HCl 300 MG Capsule 1 capsule Orally every 12 hrsTaking Losartan Potassium 100 MG Tablet 1 tablet [...] as needed Externally Three times a dayTaking Clindamycin HCl 300 MG Capsule 1 capsule Orally every 12 hrsNot-Taking/PRNDoxycycline Ketoconazole 2 % Cream 1 application Externally [...] Vitals:?Ht: 5 ft 3 in, Wt: 1 69, BMI: 29.93, Shoe size: 9.5, BP: 128/75 mm Hg, Wt-k.66 kg. * Examination: ???General Examination: ?GENERAL APPEARANCE:?Reveals a pleasant, alert, well nourished, well- developed, well hydrated individual, who demonstrates proper attention to hygiene/body habitus, and is in no acute distress , Denies fever, chills, malaise, lymphadenopathy.?Dermatologic: ?SKIN FINDINGS:?Resolved , localized cellulitis without lymphangitis.?ULCER:? LOCATION, left heel (2)??SIZE, (A)5mm X 4mm X 2mm,(B) 10mm A4jbB1rf BASE, granular, RIM, hyperkeratotic, UNDERMINING, absent, TRACKING, Full thickness breakdown of skin, DRAINAGE, serosanguineous, mild, NECROTIC TISSUE, loosely-adherent, yellow slough, MALODOR, absent, CALOR, absent, ERYTHEMA, absent, PAIN ON PALPATION, present, active bleeding? (A).?Vascular: ?DP PULSES(B):?2/4, B/L.?PT PULSES(B):?2/4, B/L.? Assessment: * Assessment: 1.?Abscess of left foot - L0 2.612, Response to treatment - Improvement?2.?Skin ulcer of left heel, limited to breakdown of skin - L97.421, X 2? Plan: * Treatment: * Procedures:?Debride skin< 25 sq cm:?Open wound?Physician of record performed open wound selective debridement of first 25 sq cm or less, of devitilized necrotic/nonviable soft tissue, fibrin, and exudate extending from the epidermis through the dermis, utilizing sharp dissection with sterile 15 blade, and/or tissue nippers. Hemostasis was controlled through direct pressure. Sterile antibiotic dressing applied, ANESTHESIA was not required due to presence of NEUROPATHY. Character of the wound post debridement is stable (99629).? * Procedure Codes:?28462 ACTIV E WOUND CARE/20 CM OR <, Modifiers: XS * Preventive Medicine:? ??Counseling:?Discussion:?-12: Office or other outpatient visit for the evaluation and management of an established patient, which required a medically appropriate history and/or examination and STRAIGHTFORWARD level of MEDICAL DECISION MAKING, 1 SELF-LIMITED OR MINOR PROBLEM, MINIMAL- NO AMOUNT/COMPLEXITY OF DATA TO BE REVIEWED/ANALYZED, AND MINIMAL RISK OF COMPLICATION/MORBIDITY. The visit on the day of the [...] have encouraged the patient to call the office, Patients podiatric issue has improved, they should call the office with any future issues or concerns.? * Follow Up:?3-4w * Images: * Sign off status: Completed true * Provider:?Lani Ricketts DPM Date:?2023 Generated for Violet desai/Sylvester/eTransmitting on:?10/23/2024 01:13 PM EDT History and Physical Notes * HPI (History of Present Illness) Category Sub-Category Detail Notes Category Not es Skin problems Treatments: none Possible Infection Course: improved Treatments: medication ( clindam ycin ),woundcare Examination Category Sub-Category Detail Notes Category Not es Dermatologic SKIN FINDINGS: Resolved , local ized cellulitis without lymphangitis ULCER: LOCATION, left heel (2) SIZE, (A)5mm X 4mm X 2mm,(B) 10mm T9wwV1ss BASE, granular, RIM, hyperkeratotic, UNDERMINING, absent, TRACKING, Full thickness breakdown of skin, DRAINAGE, serosanguineous, mild, NECROTIC TISSUE, loosely-adherent, yellow slough, MALODOR, absent, CALOR, absent, ERYTHEMA, absent, PAIN ON PALPATION, present, active bleeding (A) Orthopedic FOOTWEAR: General Examination GENERAL APPEARANCE: Reveals a pleasant, alert, well nourished, well-developed, well hydrated individual, who demonstrates proper attention to hygiene/body habitus, and is in no acute distress , Denies fever, chills, malaise, lymphadenopathy Vascular DP PULSES (B): 2/4, B/L PT PULSES (B): 2/4, B/L Nails NAILS are:
--- OUTSIDE RECORDS SUMMARY | 2024-10-23 13:13 | XMS_ITS ---
Author Organization [facility] Address [address] [place] [address] Care Team Providers Care Youth Advocate Name Role Phone Luis Alfredo DRY ICE MACHINE OPERATOR, Yareli Primary Care Provider Unava ilable Jamarcus, Lani Unavailable [phone] REASON FOR VISIT Bako Encounters Encounter Location Date Provider Diagnosis [address] [address] 05/06/2024 Lani Ricketts Plan Of Treatment Next Appt Details Provider Name:Lani Ricketts , 11/25/2024 02:30:00 PM, [address] [place], [address], Progress Notes * Lainey MORRELL RDOB:[birth year] (84 yo F)Acc No.[id number]:05/06/2024 Patient:?Lainey Morrell :1940???Age:84 Y???Sex:Female Address:[address] [place] [address], [address] * true * Date:? Generated for Printi ng/Fanayg/eTransmitting on:?10/23/2024 01:12 PM EDT
== END 2024-10-23 11:53 | disposition home or self-care (01) ==
LOC: HO.HPS 11:13
PROVIDERS: PCP Nurse Practitioner Adult Health; Visit Provider Hospitalist
DX: J47.1 Bronchiectasis with (acute) exacerbation (principal); J44.9 Chronic obstructive pulmonary disease, unspecified; R05.3 Chronic cough
CPT/HCPCS: 99214; G2211

== ENCOUNTER → 2024-10-23 11:12 | Outpatient (BNVA) | payer MEDICARE, SELFPAY | PROVIDERS: PCP Nurse Practitioner Adult Health; Visit Provider Hospitalist | DX: J47.1 Bronchiectasis with (acute) exacerbation (principal); J44.9 Chronic obstructive pulmonary disease, unspecified; R05.3 Chronic cough | CPT/HCPCS: 99212 ==

== ENCOUNTER 2024-11-06 08:10 | Outpatient (REF) | payer MEDICARE, SELFPAY ==
--- NOTE | ~2024-11-06 | FL_ITS ---
EXAMINATION: XR FLUOROSCOPY ESOPHAGRAM. CLINICAL INFORMATION: 84-year-old female, complaining of coughing after eating. Gastroesophageal reflux disease without esophagitis. COMPARISON: None TECHNIQUE: Fluoroscopic air contrast upper GI examination was performed utilizing standard techniques with thin and thick barium and effervescent granules. Numerous spot images were obtained. Several fluoroscopic image hold cine sequences were also obtained. FINDINGS: Somewhat limited exam due to patient inability to tolerate prone and the majority of supine imaging due to back pain/arthritis. This limits the sensitivity of the exam. ESOPHAGRAM: Lateral cine images of the oropharynx and hypopharynx demonstrate normal swallow mechanism with normal epiglottic inversion and soft palate elevation. Trace laryngeal penetration, without glottic or subglottic aspiration identified. No nasopharyngeal reflux present. Persistent contrast pooling present in the vallecula and piriform sinuses, which cleared upon subsequent swallow. Hypopharyngeal structures appear normal without evidence of mass or diverticulum. There was no significant cricopharyngeal achalasia. Dual and single contrast images of the esophagus demonstrate normal caliber, contour, and mucosal pattern. No evidence of stricture, mass, or ulcerations identified. Esophageal peristalsis was mildly to moderately disordered. Small type I hiatus hernia present. Evaluation for reflux was limited, although no gross reflux was observed during the examination. Dual contrast and single contrast images of the stomach demonstrated suboptimal coating of the superior wall and lesser curvature due to limitations. Grossly normal contour and mucosal pattern without evidence of mass, ulceration, or other significant abnormality. Contrast freely passed into the gastric antrum and duodenal bulb without delay. Single and air-contrast images of the duodenal bulb demonstrate no abnormality. The duodenal sweep has a normal appearance, course, and mucosal fold appearance. FLUOROSCOPY TIME: 1 minutes, 45 seconds Number of Spot Images:4 Number of cines obtained: 7 DOSE AREA PRODUCT: 90.2 uGy-m2 (microgray-meter squared) FL/FL barium swallow with air IMPRESSION: 1. Somewhat limited exam due to patient inability to tolerate prone and supine positioning as detailed. 2. Trace laryngeal penetration without glottic or subglottic aspiration observed. Persistent contrast pooling present in the vallecula and piriform sinuses, which did clear upon subsequent swallows. 3. Mild to moderate esophageal dysmotility. 4. Evaluation for reflux was limited, although no gross reflux observed during the course of the exam. 5. Small type I hiatus hernia. Electronically signed by: Vincenzo Howard MD 11/06/2024 10:13 AM EDT
--- OUTSIDE RECORDS SUMMARY | 2024-11-06 08:24 | XMS_ITS | Data Portability ---
Author Organization [facility], [facility] [place] Address [address] [place] [address] Care Team Providers Care Engraving Press Operator Name Role Phone HAYDEE ARENAS Referring Provider [...] for 6 weeks.Com pleted by: 2023 024 [email or web address] Not available 05/14/2024 14:59:32 Procedures None recorded. Surgeries None recorded. Imaging XR, shoulder, 2 or more view - rm 1. 4V right shoulder pain 2023 024 [email or web address] [facility], [address], [place], [address], 06/18/2024 15:51:40 XR, hip + pelvis, unilatera l, 2 or 3 view - room 210 lt hip 2023 024 [email or web address] [facility] [place], [address], [place], [address], 05/14/2024 14:59:32 Medication Orders None recorded. Patient [...] by: Referring Physician: Laney Cagle, Orthopedic Surgery, [id number] Encounter Date: 04/23/2024 Results Created Date Observation [...] a4ajBk vP9nXo QUaueC m3YtLR FvZlgJ JJ8mAn HZtai3 3c1921 AC0Kqa n%2BEU KehKiQ trMwF INTERFACE [facility] [address], [place], [address], 04/23/2024 10:14:38 04/23/20 24 04/23/2024 XR, hip + pelvi s, unila teral , 2 or 3 view [email or web address] ?Encry pted=s hAaTro YD8dLq bEUv6g %2BXZw aYqtaq 0bqfl% 2Fg9IQ a4ajBk vP9nXo QUaueC m3YtLR FvZlAdventHealth Lake Wales8[facility] Clinictai3 3q6250 AC0Kqa n%2BEU KehKiQ trMwF INTERFACE [facility] [address], [place], [address], 04/23/2024 10:14:40 06/18/20 24 06/18/2024 XR, shoul mallika, 2 or more view [email or web address]:[email or web address] ?Encry pted=s hAaTro YD8dLq bEUv6g %2BXZw aYqtaq 0bqfl% 2Fg9IQ a4ajBk vP9nXo QUaueC m3YtLR FvZlAdventHealth [place] Wales8[place] HZtai3 0f1986 AC0Kqa HiMVKW iKiQtr MwF INTERFACE [facility] [address], [place], [address], 06/18/2024 14:13:21 06/18/20 24 06/18/2024 XR, nancyul mallika, 2 or more view [email or web address]:[email or web address] ?Encry pted=s hAaTro YD8dLq bEUv6g %2BXZw aYqtaq 0bqfl% 2Fg9IQ a4ajBk vP9nXo QUaueC m3YtLR FvZl41 [address] Streettai3 4d2271 AC0Kqa HiMVKW iKiQtr MwF INTERFACE [facility] [address], [place], [address], 06/18/2024 14:13:23 Result Notes None recorded. Problems Name Problem SNOMED Code Status Onset Date Resolution Date Notes Provider Name and Address Organization Details Recorded Time No complaint s 147285433 Active Status: 'I'; Not Available [facility] 09:12:33 Pain of left hip joint 713358590055 100 Active 2023 nikole peters [facility] 4 10:06:48 History of major orthopedi c surgery 375734747 Active 2021 Status: 'A'; Not Available [facility] 4 11:14:12 Pain in right hip joint 965280239252 102 Active 2020 Problem Code: M25.551; Problem Code Type: ICD-10; Status: 'A'; Not Available [facility] 4 11:14:12 Problem Notes None recorded. Procedures Surgical History Date Name Laterality Status Provider Name and Address Organization Details Recorded Time 5 Hip Kenalog 1cc Injection, L/R completed Laney Cagle PA-C [address] [place] [address], [address], [facility] 10/15/2024 14:50:11 4 Sports Shoulder Bilateral completed Shantanu Fall MD [address] [facility], [place], [address], [facility] 06/18/2024 16:07:51 4 Sports Knee 4&1 completed Arnie Peace PA-C [address] [facility], [place], [address], [facility] 04/30/2024 12:46:43 4 Hip Kenalog 1cc Injection, L/R completed Laney Cagle PA-C [address] [facility], [place], [address], [facility] 04/23/2024 22:38:34 4 Knee Kenalog 40mg 2cc Injection, L/R completed Bk Christina MD [address] [facility], [place], [address], [facility] 01/23/2024 12:26:32 4 CARPAL TUNNEL RELEASE (SURG) completed COLE RAMOS [facility] 12/27/2023 11:02:48 Imaging Results Imaging Date Name Status LastModified by [facility]iz [facility] Details LastModified Time 02/01/2022 imaging/diag nostic result completed [email or web address] Information not available 04/12/2024 01:35:20 04/23/2024 XR, hip + pelvis, unilateral, 2 or 3 view completed INTERFACE [facility] [address], [place], [address], 04/23/2024 10:14:38 04/23/2024 XR, hip + pelvis, unilateral, 2 or 3 view completed INTERFACE [facility] [address], [place], [address], 04/23/2024 10:14:40 06/18/2024 XR, shoulder, 2 or more view completed INTERFACE [facility] [address], [place], [address], 06/18/2024 14:13:21 06/18/2024 XR, shoulder, 2 or more view completed INTERFACE [facility] [address] [employer], [place], [address], 06/18/2024 14:13:23 Procedure Notes None recorded. Medical Equipment None Reported. Allergies Allergen ID Allergen Name Allergen Category Reaction Reaction Severity Criticality Documentation Date Start Date Code Code System Note Provider Name and Address Organization Details Recorded Time 009051 Product containin g 3-hydroxy -3-methyl glutaryl- coenzyme A reductase inhibitor (product) medicatio n Not available Not available Not available 10/16/20232019 78652 009 SNOMED Aller gyNam e: 'Stat ins'; [...] No t Available prednisone 20 mg tablet active Not Available Not Available Not Available doxycycline monohydrate 100 mg tablet TAKE 1 TABLET BY MOUTH TWICE DAILY active Not Available Not Available No t Available flecainide 50 mg tablet TAKE 1 [...] Not Available Not Available No t Available sodium chloride 7 % for nebulizatio n USE 1 VIAL VIA NEBULIZER TWICE DAILY active [...] Updated DateTime 04/23/2024 158.75 cm 29.9 kg/m2 50810.33 g [facility] 04/23/2024 10:04:30 Date Recorded Body height Provider Name an d Address Organization Details Last Updated DateTime 04/29/2024 158.75 cm [facility] 04/29/2024 15:33:28 Date Recorded Body height Body mass index (BMI) Body weight Provider Name and Address Organization Details Last Updated DateTime 06/18/2024 158.75 cm 30.4 kg/m2 42629.11 g [facility] 06/18/2024 14:03:03 Date Recorded Body height Body mass index (BMI) Body weight Provider Name and Address Organization Details Last Updated DateTime 07/02/2024 158.75 cm 30.4 kg/m2 13149.11 g [facility] 07/02/2024 09:33:59 Date Recorded Body height Body mass index (BMI) Body weight Provider Name and Address Organization Details Last Updated DateTime 10/15/2024 158.75 cm 30.4 kg/m2 98161.11 g [facility] 10/15/2024 10:59:24 Social History None recorded. Functional Status None recorded. Mental Status None recorded. Family History Nothing Reported. Medical History No medical history recorded. Gynecological HistoryNo gynecological history recorded. Obstetrics History GPAL:G 0 P 0 0 0 0 Past Encounters Encounter ID Performer Location Encounter Start Date Encounter Closed Date Diagnosis/Indication Diagnosis SNOMED-CT Code Diagnosis ICD10 Code Diagnosis Note [id number] [facility] [address], [place] [address] 11/13/2023 11:27:33 12/06/2023 14:18:12 Carpal tunnel syndrome of left wrist 3107365913 12101 G56.02 [id number] Rukhsana Rodriguez, OTR/L,CHT [facility] [address], [place] [address] 01/09/2024 09:01:00 01/09/2024 12:20:23 Postoperative visit 699848395 Z48.89 Sutures are removed today without complicati [...] visit was complete at 30 minutes. Carpal sierra katie syndrome of left wrist 3627545362 G56.02 Upon welcoming the patient from the [...] tasks with the thumb, index, middle fingers. [id number] MD [facility] [address] [place] [address] [address] [place] [address] 01/23/2024 08:52:43 02/26/2024 12:10:09 Osteoarthritis of right knee joint 5071048531 18678 M17.11 Osteoarthr itis of right hip joint 3888128105 85230 M16.11 [id number] IRENE Wild [address] [place] [address] [address] [place] [address] 04/23/2024 09:34:09 05/14/2024 14:59:31 Pain of left hip joint 2918013602 27985 M25.552 Trochanter ic bursitis of left hip 2903029036 65976 M70.62 Osteoarthr itis of left hip joint 5474199955 52202 M16.12 [id number] IRENE Epps [address] [place] [address] [address] [place] [address] 04/29/2024 15:20:32 05/20/2024 15:23:03 Osteoarthritis of right knee joint 8069907475 59506 M17.11 [id number] Shantanu Fall MD [facility] [address] [place] [address] 06/18/2024 13:57:46 07/15/2024 11:29:30 History of major orthopedic surgery 850454489 Z98.890 Pain of ri ght shoulder region 0690448834 M25.511 Bilateral rotator cuff arthropathy of shoulder 2462016141 8029673 M75.101 M12.811 M12.812 M75.666 [id number] Laney Cagle PA-C [facility] [address] [place] [address] 07/02/2024 09:28:35 07/26/2024 11:05:02 Trochanteric bursitis of left hip 0863691140 07549 M70.62 Osteoarthr itis of left hip joint 9675279361 58391 M16.12 [id number] Laney Cagle PA-C [facility] - [facility] [address] [place] [address] 10/15/2024 10:22:37 10/28/2024 13:10:29 Trochanteric bursitis of left hip 5953509407 92407 M70.62 Osteoarthr itis of left hip joint 5224876801 41508 M16.12 Health Concerns Section Related Observation LastModified by Organization Detai ls LastModified Time None Recorded Concern Status LastModified by Organization Details LastModified Time None Recorded Advance Directives Directive None Recorded Payers Encounter Date Sequence Insurance Name Policy Number Policy Barragan Covered Member ID Barragan Member ID Guarantor Name 04/23/2024 1 [place] Lainey Floyd [id number] Lainey Floyd 04/23/2024 2 [place] [id number] Lainey Floyd [id number] Lainey Floyd 04/29/2024 1 [place] Lainey Floyd [id number] 3 Lainey Floyd 04/29/2024 2 [place] [id number] Lainey Floyd [id number] Lainey Floyd 06/18/2024 1 [place] Lainey Floyd [id number] 3 Lainey Floyd 06/18/2024 2 [place] [id number] Lainey Limonon [id number] Lainey Limonon 07/02/2024 1 [place] Lainey Floyd [id number] 3 Lainey Limonon 07/02/2024 2 [place] [id number] Lainey Limonon [id number] Lainey Limonon 10/15/2024 1 [place] Lainey Floyd [id number] 3 Lainey Floyd 10/15/2024 2 [place] [id number] Lainey Floyd [id number] Lainey Floyd Notes Date Note Type [...] groin pain or radicular symptoms. She takes tigh-fwj-grujfdf medication intermittently for her pain. She is here today for treatment recommendations. PMH/PSH/MEDS/ALL/FMH/S OC HX/ROS are reviewed in detail per my medical intake sheet. General Exam: Vital signs are as noted below Mental status: Alert and lucid. Normal insight, affect and grooming. 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 No spasticity [...] extremities. X-rays ordered, obtained and reviewed at [facility] today include an AP pelvis and lateral [...] recheck. All questions answered. Laney Cagle PA-C [address], [place], [address], [facility] 04/24/2024 15:23:30 04/29/2024 [...] gave good relief until recently. Problems ambulating. Jofg-qeu-hmzpdgl medications are helping somewhat but not significantly. [...] noted. mild lateral ligamentous laxity. Negative Maury? s. Calf is supple and nontender. Neurovascularly intact distally. Impression:{{Left Righ t* Bi-lateral}} Knee osteoarthritis Plan:We discussed the role of conservative management including medications, physical therapy, injection and bracing. At this point the patient was to proceed with injection. Please see procedure note. They will follow up with us as scheduled. Arnie Peace PA-C [address], [place], [address], [facility] 04/30/2024 12:47:00 06/18/2024 [...] Rotatorcuff atrophy Forward flexion to 40 abduction gb72dqfhsewp rotation to 20 internalrotation to 20. Has [...] as symptoms dictate. Shantanu Fall MD [address] [facility] [address], [place], [address], [facility] 06/18/2024 16:08:47 07/02/2024 text/html [...] and lucid. Normal insight, affect and grooming. 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 No spasticity [...] extremities. X-rays ordered, obtained and reviewed at [facility] previously include an AP pelvis and lateral [...] injection. All questions answered. Laney Cagle PA-C [address] [facility] [address], [place], [address], [facility] 07/02/2024 10:14:35 10/15/2024 text/html I am seeing [...] and lucid. Normal insight, affect and grooming. 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 No spasticity [...] extremities. X-rays ordered, obtained and reviewed at [facility] previously include an AP pelvis and lateral [...] All questions answered. Laney Cagle PA-C [address] [facility] [address], [place], [address], [facility] 10/15/2024 14:50:25 OBGyn Episode No OBEpisode recorded.
--- OUTSIDE RECORDS SUMMARY | 2024-11-06 08:24 | XMS_ITS ---
Author Organization [facility] Address [address] [place] [address] Care Team Providers Care Irrigation Supervisor Name Role Phone Luis Alfredo DIABETES EDUCATOR, Yareli Primary Care Provider Unava ilable Jamarcus, Lani Unavailable [phone] REASON FOR VISIT Bako Encounters Encounter Location Date Provider Diagnosis [address] [address] 05/06/2024 Lani Ricketts Plan Of Treatment Next Appt Details Provider Name:Lani Ricketts , 11/25/2024 02:30:00 PM, [address] [place], [address], Progress Notes * Lainey MORRELL RDOB:[birth year] (84 yo F)Acc No.[id number]:05/06/2024 Patient:?Lainey Morrell :1940???Age:84 Y???Sex:Female Address:[address] [place] [address], [address] * true * Date:? Generated for Printi ng/Fanayg/eTransmitting on:?11/06/2024 08:24 AM EDT
--- OUTSIDE RECORDS SUMMARY | 2024-11-06 08:24 | XMS_ITS | Continuity of Care Document ---
Author Organization [facility], CARLO Gonzalezjes[address]s 2nd floor Address [address] [place] [address] Care Team Providers Care Motor Grader Rough Grade Name Role Phone HAYDEE ARENAS Referring Provider Assessment No assessment recorded. Plan of Treatment Reminders Order Date Submit Date Provider Last Modified By Organization Details Last Modified Time Details Appointments NEW PATIENT 15 2024 01:15P M Farhan Brito PA-C Not available Not available Not available RECHECK 15 2024 11:30A M Laney Cagle PA-C Not available Not available Not available Lab None recorded . Referral None recorded . Procedures None recorded . Surgeries None recorded . Imaging None recorded . Medication Orders None recorded . Patient TargetsNo targets recorded. Patient InstructionsNo instructions recorded. Reason for Referral None Reported. Problems Name Problem SNOMED Code Status Onset Date Resolution Date Notes Provider Name and Address Organization Details Recorded Time No complaint s 935161700 Active Status: 'I'; Not Available [facility] 4 09:12:33 Pain of left hip joint 864932308590 100 Active 2023 nikole peters [facility] 4 10:06:48 History of major orthopedi c surgery 602400160 Active 2021 Status: 'A'; Not Available [facility] 4 11:14:12 Pain in right hip joint 798807688088 102 Active 2020 Problem Code: M25.551; Problem Code Type: ICD-10; Status: 'A'; Not Available [facility] 4 11:14:12 Problem Notes None recorded. Procedures Surgical History Date Name Laterality Status Provider Name and Address Organization Details Recorded Time 5 Hip Kenalog 1cc Injection, L/R completed Laney Cagle PA-C [address] [facility], [place], [address], [facility] 10/15/2024 14:50:11 4 Sports Shoulder Bilateral completed Shantanu Fall MD [address], [place], [address], [facility] 06/18/2024 16:07:51 4 Sports Knee 4&1 completed Arnie Peace PA-C [address] [facility], [place], [address], [facility] 04/30/2024 12:46:43 4 Hip Kenalog 1cc Injection, L/R completed Laney Cagle PA-C [address] [facility], [place], [address], [facility] 04/23/2024 22:38:34 4 Knee Kenalog 40mg 2cc Injection, L/R completed Bk Christina MD [address] [facility], [place], [address], [facility] 01/23/2024 12:26:32 4 CARPAL TUNNEL RELEASE (SURG) completed COLE RAMOS [facility] 12/27/2023 11:02:48 Imaging Results None recorded. Procedure Notes None recorded. Medical Equipment None Reported. Allergies Allergen ID Allergen Name Allergen Category Reaction Reaction Severity Criticality Documentation Date Start Date Code Code System Note Provider Name and Address Organization Details Recorded Time 349526 Product containin g 3-hydroxy -3-methyl glutaryl- coenzyme A reductase inhibitor (product) medicatio n Not available Not available Not available 10/16/20232019 87266 009 SNOMED Aller gyNam e: 'Stat ins'; [...] Updated DateTime 10/15/2024 158.75 cm 30.4 kg/m2 92277.11 g nikole francois [facility] 10/15/2024 10:59:24 Social History None recorded. Functional Status None recorded. Mental Status None recorded. Family History Nothing Reported. Medical History No medical history recorded. Gynecological HistoryNo gynecological history recorded. Obstetrics History GPAL:G 0 P 0 0 0 0 Past Encounters Encounter ID Performer Location Encounter Start Date Encounter Closed Date Diagnosis/Indication Diagnosis SNOMED-CT Code Diagnosis ICD10 Code Diagnosis Note [id number] IRENE Wild 2nd floor [address] [facility] [place] [address] 10/15/2024 10:22:37 10/28/2024 13:10:29 Trochanteric bursitis of left hip 4364882270 40460 M70.62 Osteoarthr itis of left hip joint 7298371055 92161 M16.12 Health Concerns Section Related Observation LastModified by Organization Detai ls LastModified Time None Recorded Concern Status LastModified by Organization Details LastModified Time None Recorded Payers Encounter Date Sequence Insurance Name Policy Number Policy Barragan Covered Member ID Barragan Member ID Guarantor Name 10/15/2024 1 [place] [employer] Lainey Floyd [id number] Lainey Floyd 10/15/2024 2 [place] [id number] Lainey Floyd [id number] Lainey Floyd Notes Date Note Type Note Provider Name and Address Organization Details Recorded Time 10/15/2024 text/html I am seeing the patient [...] She is here for repeat cortisone injection. PMH/PSH/MEDS/ALL/FMH/ SOC HX/ROS are reviewed in detail per my medical intake sheet. General Exam: Vital signs are as noted below Mental status: Alert and lucid. Normal insight, affect and grooming. LEAD POURER: Gross motor coordination is intact. No spasticity [...] extremities. X-rays ordered, obtained and reviewed at [facility] previously include an AP pelvis and lateral view of {{right hip left hip* bilateral hips}}. Images reveal mild to moderate osteoarthritis of the left hip joint. There is severe end-stage osteoarthritis of the right hip joint. No acute fracture or lesion. IMPRESSION: {{Right Left* Bilater al}} hip greater trochanteric bursitis and osteoarthritis PLAN: [...] All questions answered. Laney Cagle PA-C [address] [facility] [address], [place], [address], [place] [facility] 10/15/2024 14:50:25 OBGyn Episode No OBEpisode recorded.
--- OUTSIDE RECORDS SUMMARY | 2024-11-06 08:25 | XMS_ITS ---
Author Organization [facility] [place] Address [address] [place] [address] Care Team Providers Care Radiology Specialist Name Role Phone Luis Alfredo BRODY, Yareli Primary Care Provider Unava ilable Black, Lani Unavailable [phone] Allergies No Known Allergies REASON FOR VISIT [...] an other tobacco user? No Vital Signs Height 5 ft 3 in in 05/30/2024 Weight 169 lbs 05/30/2024 BMI 29.93 kg/m2 05/30/2024 Blood pressure systolic 128 mm Hg 05/30/20 24 Blood pressure diastolic 75 mm Hg 024 Procedures Procedure Date Ordered Date Performed Result Body [place] e 77054- Debride <25 sq cm 05/30/2024 N/A Encounters Encounter Location Date Provider Diagnosis [facility] [place] [address] [place] [address] 05/30/2024 Lani Black Abscess of left foot [...] Treatment Pending Test Test Name Order Date 69350- Debride <25 sq cm 05/30/2024 Next Appt Details Follow Up: 3-4w, Reason: Provider Name:Lani Ricketts , 11/25/2024 02:30:00 PM, [address] [place], [address], Procedure Notes * Category Sub-Category Detail Notes [...] of the wound post debridement is stable (11117) Progress Notes * Lainey MORRELL RDOB:[birth year] (84 yo F)Acc No.[id number]:05/30/2024 Progress Notes Patient:?Everett Lainey R Provider:?Lani FILIBERTO Ricketts :1940???Age:84 Y???Sex:Female D ate:05/30/2024 Address:[address] [place], [place] [address] Pcp:Yareli Lobato NP Subjective: * Chief Complaints: [...] walking. ?Marital status: . 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 * Medications:?TakingLosartan Potassium 100 MG Tablet 1 [...] (2)??SIZE, (A)5mm X 4mm X 2mm,(B) 10mm P6eqL1kz BASE, granular, RIM, hyperkeratotic, UNDERMINING, absent, TRACKING, [...] of the wound post debridement is stable (79718).? * Procedure Codes:?51393 ACTIV E WOUND CARE/20 CM OR <, [...] Ricketts DPM Date:?2023 Generated for Violet desai/Sylvester/eTransmitting on:?11/06/2024 08:25 AM EDT History and Physical Notes * HPI (History of Present Illness) Category Sub-Category Detail Notes Category Not es Skin problems Treatments: none Possible Infection Course: improved Treatments: medication ( clindam ycin ),woundcare Examination Category Sub-Category Detail Notes Category Not es Dermatologic SKIN FINDINGS: Resolved , local ized cellulitis without lymphangitis ULCER: LOCATION, left heel (2) SIZE, (A)5mm X 4mm X 2mm,(B) 10mm P3qyS3xi BASE, granular, RIM, hyperkeratotic, UNDERMINING, absent, TRACKING, [...]
--- OUTSIDE RECORDS SUMMARY | 2024-11-06 08:25 | XMS_ITS ---
Author Organization [facility] Address [address] [place] [address] Care Team Providers Care Sales Operations Consultant Name Role Phone Luis Alfredo RBODY, Yareli Primary Care Provider Unava ilable Black, Lani Unavailable [phone] Allergies No Known Allergies REASON FOR VISIT [...] Problem Status W/U Status Risk Notes Problem 87671334673982000 Pressure injur y of right heel, unstageable (L89.610) Active confirmed Vital Signs Height 5 ft 3 in in 08/26/2024 Weight 166 lbs 08/26/2024 BMI 29.4 kg/m2 08/26/2024 Blood pressure systolic 120 mm Hg 08/26/19 25 Blood pressure diastolic 68 mm Hg 025 Procedures Procedure Date Ordered Date Performed Result Body Sit e 99108-IYMLDJT NAIL, 6 OR MORE 08/26/2024 N/A 94416-Zodauyry Plate 08/26/2024 N/A Encounters Encounter Location Date Provider Diagnosis [facility] [place] [address] [place] [address] 08/26/2024 Lani Ricketts Tinea unguium B35.1 ; [...] Treatment Pending Test Test Name Order Date 30779-IVKRKDL NAIL, 6 OR MORE 08/26/2024 22415-Ctwynlie Plate 08/26/2024 Next Appt Details Follow Up: prn, Reason: Provider Name:Lani Ricketts , 11/25/2024 02:30:00 PM, [address] [place] [address], [phone], Procedure Notes * Category Sub-Category Detail Notes [...] Motrin was recommended for pain or discomfort (80213), Pt DEFERS matricectomy Anesthesia , was accomplished [...] use of a nail nipper and/or dremel-type hull grinder, to a more viable healthy nail plate [...] to maintain effectiveness in symptomatic relief - 13789 Patient chooses debridement treatmen t only; no pharmaceutical tx Progress Notes * Lainey MORRELL RDOB:[birth year] (84 yo F)Acc No.[id number]:08/26/2024 Progress Note Patient:?EVERETT Lainey R Provider:?Lani Ricketts DPM :1940???Age:84 Y???Sex:Female D ate:08/26/2024 Address:[address] [place] [address] Pcp:Yareli Lobato NP Subjective: * Chief Complaints: [...] - L60.0??? Plan: * Treatment: 2.?Ingrown nail?Procedure: 97759-Zyymphsf Plate * Procedures:?Debride Nail 6-10:?Nail debridement?Due to [...] use of a nail nipper and/or dremel-type hull grinder, to a more viable healthy nail plate [...] to maintain effectiveness in symptomatic relief - 65490.?Patient chooses ?debridement treatment only; no pharmaceutical tx.?Nail [...] Motrin was recommended for pain or discomfort (45746), Pt DEFERS matricectomy.? * Procedure Codes:?13938 Avuls ion Plate, [place]: [place] [address] DEBRIDE NAIL, 6 OR MORE, Modifiers: XS [...] activities and work, and to prevent further disability.group home goals: Our plan is for the patient [...] Ricketts DPM Date:?2024 Generated for Violet desai/Sylvester/Dyllan on:?11/06/2024 08:25 AM EDT History and Physical [...]
== END 2024-11-06 08:11 | disposition home or self-care (01) ==
LOC: HO.XRAY 08:10
PROVIDERS: PCP Nurse Practitioner Adult Health; Visit Provider Hospitalist
DX: K21.9 Gastro-esophageal reflux disease without esophagitis (principal)
CPT/HCPCS: 74221

== ENCOUNTER → 2024-11-06 08:12 | Outpatient (BNV) | payer MEDICARE, SELFPAY | PROVIDERS: PCP Nurse Practitioner Adult Health; Visit Provider Radiology Diagnostic Radiology | DX: K22.4 Dyskinesia of esophagus (principal); K21.9 Gastro-esophageal reflux disease without esophagitis | CPT/HCPCS: 74246 ==

== ENCOUNTER 2024-12-10 13:08 | Outpatient (REF) | payer MEDICARE, SELFPAY ==
--- OUTSIDE RECORDS SUMMARY | 2024-12-10 15:09 | XMS_ITS ---
Author Organization [facility] Address [address] [place] [address] Care Team Providers Care Copper Miner Name Role Phone Luis Alfredo BRODY, Yareli Primary Care Provider Unava ilable Black, Lani Unavailable [phone] Allergies No Known Allergies REASON FOR VISIT [...] Problem Status W/U Status Risk Notes Problem 82215526015736571 Pressure injur y of right heel, unstageable (L89.610) Active confirmed Vital Signs Height 5 ft 3 in in 08/26/2024 Weight 166 lbs 08/26/2024 BMI 29.4 kg/m2 08/26/2024 Blood pressure systolic 120 mm Hg 08/26/19 25 Blood pressure diastolic 68 mm Hg 025 Procedures Procedure Date Ordered Date Performed Result Body Sit e 03380-JFRTBDM NAIL, 6 OR MORE 08/26/2024 N/A 34609-Vklpanet Plate 08/26/2024 N/A Encounters Encounter Location Date Provider Diagnosis [facility] [place] [address] [place] [address] 08/26/2024 Lani Ricketts Tinea unguium B35.1 ; [...] Treatment Pending Test Test Name Order Date 00244-DJBKRUY NAIL, 6 OR MORE 08/26/2024 94684-Xbrxhdbz Plate 08/26/2024 Next Appt Details Follow Up: prn, Reason: Provider Name:Lani Ricketts , 03/03/2025 02:30:00 PM, [address] [place] [address], [address], Procedure Notes * Category Sub-Category Detail Notes [...] Motrin was recommended for pain or discomfort (46847), Pt DEFERS matricectomy Anesthesia , was accomplished [...] use of a nail nipper and/or dremel-type abrasive grinder, to a more viable healthy nail [...] to maintain effectiveness in symptomatic relief - 93426 Patient chooses debridement treatmen t only; no pharmaceutical tx Progress Notes * Lainey MORRELL RDOB:[birth year] (84 yo F)Acc No.[id number]:08/26/2024 Progress Note Patient:?EVERETT Lainey R Provider:?Lani Ricketts DPM :1940???Age:84 Y???Sex:Female D ate:08/26/2024 Address:[address] [place] [address] Pcp:Yareli Lobato NP Subjective: * Chief Complaints: [...] - L60.0??? Plan: * Treatment: 2.?Ingrown nail?Procedure: 05995-Fosasvdm Plate * Procedures:?Debride Nail 6-10:?Nail debridement?Due to [...] use of a nail nipper and/or dremel-type abrasive grinder, to a more viable healthy nail [...] to maintain effectiveness in symptomatic relief - 60423.?Patient chooses ?debridement treatment only; no pharmaceutical tx.?Nail [...] Motrin was recommended for pain or discomfort (55258), Pt DEFERS matricectomy.? * Procedure Codes:?32105 Avuls ion Plate, [place]: [place] [address] DEBRIDE NAIL, 6 OR MORE, Modifiers: XS [...] activities and work, and to prevent further disability.FCI goals: Our plan is for the patient [...] Ricketts DPM Date:?2024 Generated for Violet desai/Sylvester/Dyllan on:?12/10/2024 03:09 PM EDT History and Physical Notes * [...]
--- OUTSIDE RECORDS SUMMARY | 2024-12-10 15:09 | XMS_ITS | Patient Health Record ---
Author Organization [facility] Rebekah hatch Sullivan Address [address] [place] [address] Care Team Providers Care Nick Setter Name Role Phone Luis Alfredo BRODY, Yareli Primary Care Provider Unava ilable Black, Lani Unavailable [phone] Allergies No Known Allergies Reason For Referral No Information Medications Medication SIG (Take, Route, Frequency, Duration) Notes Start Date End Date Status Ciclopirox Olamine 0.77% external Apply to effected areas twice a day for 30 days 06/01/2020 Not-Taking Skin Prep Wipes - as directed 06/01/2020 Not-Taking Ketoconazole 2 % 1 application Externally Once a day for 30 days 12/01/2022 Not-Taking Doxycycline Not-Taki ng Metoprolol Succinate ER Active Ketoconazole 2 % 1 application to affected area Externally Once a day for 14 days 05/15/2017 Not-Taking Night Splint AFO - L1930 1 wear at rest for 30 days Active Flecainide Acetate 50 MG as directed Ora lly twice a day Active Betamethasone Dipropionate Not-Taking Xarelto 25 Active Ketoconazole 2 % 1 application to affected area Externally Once a day for 30 days 11/02/2016 Not-Taking Rosuvastatin Calcium Active Ciclopirox Olamine 0.77% external Apply to effected areas twice a day for 30 days 11/02/2016 Not-Taking Biofreeze Cool The Pain XL 5 % 1 patch as needed Externally Three times a day 10/05/2023 Active Ciclopirox Olamine N ot-Taking Tubular compression stockings as directed wear daily 10/11/2021 Activ e vitamin Not-Taking Clindamycin HCl 300 MG 1 capsule Orally every 12 hrs for 7 day(s) 05/06/2024 Not-Taking LamISIL 250 MG 1 tablet Orally Once a day for 90 days 02/28/2014 Not-Taking zzzCompression Stockings 20-30mm Hg . . . for . Not-Taking Calcium Not-Taking Gabapentin 300 MG TAKE 1 CAPSULE BY MOUTH THREE TIMES DAILY Oral for 30 Days Active Betamethasone Dipropionate 0.05 % 1 application to affected area Externally Once a day for 30 days 02/25/2019 Not-Taking Losartan Potassium 100 MG 1 tablet Orall y Once a day for 30 day(s) Active Ampicillin Active zzzCompression Stockings 20-30mm Hg . . . for . Not-Taking Advair Diskus Active Kenalog Not-Taking Ciclopirox Not-Takin g Tolnaftate 1 % 1 application Externally Once a day for 30 days 07/05/2021 Not-Taking Multivitamin Not-Samuel ing Roflumilast 250 MCG Oral for 14 Not-Taking Urea 40 % 1 application to affected area Externally Twice a day for 30 days 07/12/2021 Not-Taking Albuterol PRN Active Lisinopril 5 MG 1 tablet Orally Once a day Not-Taking amLODIPine Besylate 5 MG 1 tablet Orally Once a day for 30 day(s) Not-Taking Immunizations Vaccine Route Administration Date Status [...] Problem Acquired hammer toe of right foot (7317474749170001) Other hammer toe(s) (acquired), right foot (M20.41) Active confirmed Problem Acquired hammer toe of left foot (8653966793226908) Other hammer toe(s) (acquired), left foot (M20.42) Active confirmed Problem Ulcer of toe (840604006) Non-pressure chronic ulcer of other part of right foot limited to breakdown of skin (L97.511) Active confirmed Problem Ulcer of toe (652491225) Non-pressure chronic ulcer of other part of left foot limited to breakdown of skin (L97.521) Active confirmed Problem Chronic ulcer of foot (041630869) 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) Active confirmed Problem Nonstageable pressure ulcer of left foot (80218338843994629) 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) Active confirmed Problem Localized, primary osteoarthritis of the ankle and/or foot (185218699) Primary osteoarthritis, right ankle and foot (M19.071) Active confirmed Problem Localized, primary osteoarthritis of the ankle and/or foot (932460658) Primary osteoarthritis, left ankle and foot (M19.072) Active confirmed Problem Acquired hammer toe of left foot (5857352738253274) Other hammer toe(s) (acquired), left foot (M20.42) Active confirmed Problem Arthritis (7648703) Arthritis (M19.90) Active confirmed Problem 40202420502169 Pressure ulcer, heel, left, unstageable (L89.620) Active confirmed Problem Acquired hallux valgus (01512908) 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 confirmed Response to treatment - Improvement Problem Plantar fasciitis of right foot (31833889786727544) Plantar fasciitis of right foot (M72.2) Active confirmed Problem Interstitial myositis (20232504) 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) Active confirmed Problem 18349714 Ulcer of left heel and midfoot, limited to breakdown of skin (L97.421) Active confirmed Problem 35703791755576492 Pressure injur y of right heel, unstageable (L89.610) Active confirmed Problem Ulcer of toe of right foot (disorder) (31974846223925335) Skin ulcer of toe of right foot, limited to breakdown of skin (L97.511) Active confirmed Response to treatment Problem 293001088 Pressure ulcer, ankle, left, unstageable (L89.520) Active confirmed Problem 30005067438303737 Skin ulcer of left heel, limited to breakdown of skin (L97.421) Active confirmed Problem 594082610 Skin ulcer of right heel, limited to breakdown of skin (L97.411) Active confirmed Problem 972103332264436 Pressure injury of right foot, unstageable (L89.890) Active confirmed Problem Localized, primary osteoarthritis of the ankle and/or foot (363397680) Arthritis of joint of lesser toe, left (M19.072) Active confirmed Problem Pressure injury of left foot stage I (disorder) (748483835813047) Pressure injury of left foot, stage 1 (L89.891) Active confirmed Response to treatment,Re sponse to treatment - worse Problem Ulcer of toe of left foot (disorder) (49596914776375524) Skin ulcer of toe of left foot, limited to breakdown of skin (L97.521) Active confirmed Response to treatment Problem Pressure injury of right foot stage I (disorder) (605356883677814) Pressure injury of right foot, stage 1 (L89.891) Active confirmed Response to treatment worse Vital Signs Blood pressure diastolic 70 mm Hg 11/25/2024 Height 5 ft 3 in in 11/25/2024 Blood pressure systolic 120 mm Hg 11/25/2024 Weight 166 lbs 11/25/2024 BMI 29.4 kg/m2 11/25/2024 Procedures Procedure Date Ordered Date Performed Result Body Sit e 97064- Debride <25 sq cm 12/14/2023 N/A 98415-ZYYSYHM NAIL, 6 OR MORE 01/11/2024 N/A 38261-UORVARO NAIL, 6 OR MORE 05/06/2024 N/A 53714 I&D ABSCESS- SIMPLE,SINGLE 05/06/2024 N/A 03474- Debride <25 sq cm 05/30/2024 N/A 67387-BFFZDCD NAIL, 6 OR MORE 08/26/2024 N/A 90917-Dvmxcyfo Plate 08/26/2024 N/A 76935-BGQYHCT NAIL, 6 OR MORE 11/25/2024 N/A 65125,O8008-XOG TENDON SHEATH/LIGAMENT 11/25/2024 N/A Encounters Encounter Location Date Provider Diagnosis [facility] [address] [place] [address] 12/14/2023 Lani Black Pressure injury of l eft foot, stage 1 L89.891 ; Acquired hallux interphalangeus of left foot M20.12 and Pain in left toe(s) M79.[address] [address] 01/11/2024 Lani Black Tinea unguium B35.1 ; Pain in right toe(s) M79.674 ; Pain in left toe(s) M79.675 and Acquired hallux interphalangeus of left foot M20.[address] [address] 05/06/2024 Lani Black Tinea unguium B35.1 ; Tinea pedis of both feet B35.3 ; Pain in right toe(s) M79.674 ; Pain in left toe(s) M79.675 ; Abscess of left foot L02.612 ; Pressure injury of left foot, stage 1 L89.891 and Pressure injury of right foot, stage [address] [address] 05/30/2024 Lani Black Abscess of left foot L02.612 and Skin ulcer of left heel, limited to breakdown of skin L97.[address] [address] 08/26/2024 Lani Black Tinea unguium B35.1 ; Pressure injury of right heel, unstageable L89.610 ; Pain in right toe(s) M79.674 ; Pain in left toe(s) M79.675 and Ingrown nail L60.[address] [address] 11/25/2024 Lani Black Tinea unguium B35.1 ; Bursitis of right foot M77.51 ; Pain in right toe(s) M79.674 ; Pain in left toe(s) M79.675 ; Pain in right foot M79.671 ; Plantar fasciitis of right foot M72.2 and 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 [facility] [place] [address] [place] [address] 12/14/2023 Lani Ricketts [facility] [address] [address] 05/06/2024 Lani Ricketts Assessments Encounter Date Diagnosis (ICD Code) Assessment Notes Treatment Notes Treatment Clinical Notes Section Notes 12/14/2023 Pressure injury of left foot, stage [...] to breakdown of skin (ICD-10 - L97.421) 08/26/2024 Tinea unguium (ICD-10 - B35.1) 08/26/2024 Pressure injury of right heel, unstageable (ICD-10 - L89.610) 11/25/2024 Tinea unguium (ICD-10 - B35.1) 11/25/2024 Bursitis of right foot (ICD-10 - M77.51) 11/25/2024 Pain in right toe(s) (ICD-10 - M79.674) 08/26/2024 Pain in right toe(s) (ICD-10 - M79.674) 05/06/2024 Pain in right toe(s) (ICD-10 - M79.674) 01/11/2024 Pain in left toe(s) (ICD-10 - M79.675) 12/14/2023 Acquired hallux interphalangeus of left foot (ICD-10 - M20.12) 12/14/2023 Pain in left toe(s) (ICD-10 - M79.675) 05/06/2024 Pain in left toe(s) (ICD-10 - M79.675) 01/11/2024 Acquired hallux interphalangeus of left foot (ICD-10 - M20.12) Response to treatment - Improvement 11/25/2024 Pain in left toe(s) (ICD-10 - M79.675) 08/26/2024 Pain in left toe(s) (ICD-10 - M79.675) 08/26/2024 Ingrown nail (ICD-10 - L60.0) 05/06/2024 Abscess of left foot (ICD-10 - L02.612) Patient Educated with: WOUND CARE INSTRUCTIONS. pdf (WOUND CARE INSTRUCTIONS. pdf) 11/25/2024 Pain in right foot (ICD-10 - M79.671) 11/25/2024 Plantar fasciitis of right foot (ICD-10 - M72.2) Patient Educated with: HEEL CORD STRETCHES.pdf (HEEL CORD STRETCHES.pdf ) Patient Educated with: RICE THERAPY.pdf (RICE THERAPY.pdf) Patient Educated with: HEEL CORD STRETCHES.pdf (HEEL CORD STRETCHES.pdf ) Patient Educated with: INJECTIONTHER APY.pdf (INJECTIONTHE RAPY.pdf) 05/06/2024 Pressure injury of left foot, stage 1 (ICD-10 - L89.891) Response to treatment,Respo nse to treatment - worse Patient Educated with: WOUND CARE INSTRUCTIONS. pdf (WOUND CARE INSTRUCTIONS. pdf) 05/06/2024 Pressure injury of right foot, stage 1 (ICD-10 - L89.891) Response to treatment worse 11/25/2024 Interstitial myositis of right foot (ICD-10 - M60.171) 12/14/2023 Other 05/06/2024 Other 05/30/2024 Other 08/26/2024 Other Plan Of Treatment Pending Test Test Name Order Date X ray : Ankle, left 2V 11/23/2020 *Wound Culture 05/06/2024 *Liver Function Test (LFT) 02/24/2014 X ray : Foot, left 3V 06/25/2013 X ray : Foot, right 3V 06/25/2013 52591-FRKYZTI NAIL, 6 OR MORE 06/21/2021 26913-QTRFRMG NAIL, 6 OR MORE 10/11/2021 33293-JKYICRO NAIL, 6 OR MORE 01/20/2022 49036-UQFCKWZ NAIL, 6 OR MORE 04/28/2022 72809-OUKCDEP NAIL, 6 OR MORE 06/01/2020 00484-HLBAQWQ NAIL, 6 OR MORE 11/23/2020 22554-ERYOXQY NAIL, 6 OR MORE 03/01/2021 02998-XQIVXCS NAIL, 6 OR MORE 05/06/2024 16823-QNBIKDL NAIL, 6 OR MORE 08/26/2024 94587-CWZJKWW NAIL, 6 OR MORE 11/25/2024 62039-VYINZUL NAIL, 6 OR MORE 08/25/2022 71869-DBKMTVE NAIL, 6 OR MORE 12/01/2022 59760-QZTSGNO NAIL, 6 OR MORE 03/13/2023 78212-BCXWSKF NAIL, 6 OR MORE 06/26/2023 09154-AVSRCSS NAIL, 6 OR MORE 10/05/2023 27475-LCFAPLU NAIL, 6 OR MORE 01/11/2024 49441-HHBLJZB NAIL, 6 OR MORE 05/12/2014 30413-EBASXJO NAIL, 6 OR MORE 08/18/2014 65730-GZRCUDR NAIL, 6 OR MORE 12/02/2014 93155-TZRXPUS NAIL, 6 OR MORE 05/06/2015 88567-CZMQBVV NAIL, 6 OR MORE 09/07/2015 96204-GMIKUSY NAIL, 6 OR MORE 02/08/2016 38373-MSLGGDP NAIL, 6 OR MORE 06/09/2016 63153-OWDNXJO NAIL, 6 OR MORE 11/02/2016 45858-KMIETXP NAIL, 6 OR MORE 03/07/2017 72029-VOBOLTG NAIL, 6 OR MORE 05/15/2017 09096-YRIHRWJ NAIL, 6 OR MORE 08/21/2017 00812-EUZXWIL NAIL, 6 OR MORE 11/23/2017 15524-MMMITZQ NAIL, 6 OR MORE 02/05/2018 59812-HVRSXWR NAIL, 6 OR MORE 05/07/2018 41306-HHLLNHT NAIL, 6 OR MORE 08/20/2018 63446-WSXXPPI NAIL, 6 OR MORE 06/08/2011 04016-CGEPQUL NAIL, 6 OR MORE 09/07/2011 23552-SEAHJAV NAIL, 6 OR MORE 11/16/2011 12955-RIJKOWP NAIL, 6 OR MORE 02/01/2012 49640-JOEGMQS NAIL, 6 OR MORE 04/11/2012 44502-GKBPMLB NAIL, 6 OR MORE 05/07/2012 70024-FSZQXFM NAIL, 6 OR MORE 07/11/2012 34794-PTRZJTF NAIL, 6 OR MORE 10/10/2012 22754-IZWDBUS NAIL, 6 OR MORE 12/17/2012 29534-OGXMGQQ NAIL, 6 OR MORE 04/08/2013 10701-LBJTWKL NAIL, 6 OR MORE 06/25/2013 11025-CJBQDEX NAIL, 6 OR MORE 07/29/2013 86300-VYKWAUX NAIL, 6 OR MORE 09/24/2013 35901-LCVRBRO NAIL, 6 OR MORE 12/09/2013 95252-YXOMRPZ NAIL, 6 OR MORE 02/24/2014 36399-IEOIJRX NAIL, 6 OR MORE 11/19/2018 06573-CSJTSRY NAIL, 6 OR MORE 02/25/2019 79643-SQERQNT NAIL, 6 OR MORE 06/03/2019 58829-BCPRUKT NAIL, 6 OR MORE 08/26/2019 74863-WTVYAMB NAIL, 6 OR MORE 03/04/2020 30434-Tjrrptjd Plate 08/20/2018 53208-Vuafzlpu Plate 08/26/2024 88049-Uwbrreuo Plate 03/01/2021 66126-Rzbzxseg Plate 06/21/2021 27341- Debride <25 sq cm 08/19/2021 89510- Debride <25 sq cm 10/11/2021 02727- Debride <25 sq cm 08/25/2022 98657- Debride <25 sq cm 06/21/2021 65327- Debride <25 sq cm 05/30/2024 03661- Debride <25 sq cm 12/14/2023 22210- Debride <25 sq cm 06/26/2023 07760- Debride <25 sq cm 03/04/2020 96357- Debride <25 sq cm 06/01/2020 21515 I&D ABSCESS- SIMPLE,SINGLE 024 07575, N3283-SARUO/INJECT, JOINT/BURSA 1 08/25/201215932,O2658-VBL TENDON SHEATH/LIGAMENT 0 11/25/2024 Next Appt Details Provider Name:Lani Ricketts , 03/03/2025 02:30:00 PM, [address] [place], [address], Insurance Providers Payer Name Payer Address Payer Phone Subscriber Number Group Number Insured Name Patient Relationship to Insured Coverage Start Date Coverage End Date Medicare National Govt [facility] [address] [place] [address] [id number] Lainey Floyd Self - patient is the insured 7 [employer] [address] [place] [address] [id number] Lainey Floyd Self - patient is the insured Medical (General) History Medical History History ICD Code chicken pox asthma Surgical History Surgery Date(Month/Year) appendectomy 1957 carpal tunnel release 04/10/2017 Left Knee replacement 02/02 carpal tunnel surgery 01/04 Hospitalization History Reason Date(Month/Year)
--- OUTSIDE RECORDS SUMMARY | 2024-12-10 15:10 | XMS_ITS ---
Author [facility] Address [address] [place] [address] Care Team Providers Care Patient Service Associate Name Role Phone Luis Alfredo BRODY, Yareli Primary Care Provider Unava ilable Black, Lani Unavailable [phone] Allergies No Known Allergies REASON FOR VISIT Painful nail(s) aggrevated by shoes causing difficulty standing/walking, Heel pain Medications Medication SIG (Take, Route, Frequency, Duration) Notes Start Date End Date Status zzzCompression Stockings 20-30mm Hg . . . for . Not-Taking Roflumilast 250 MCG Oral for 14 Not-Taking Urea 40 % 1 application to affected area Externally Twice a day for 30 days 07/12/2021 Not-Taking Lisinopril 5 MG 1 tablet Orally Once a day Not-Taking amLODIPine Besylate 5 MG 1 tablet Orally Once a day for 30 day(s) Not-Taking Betamethasone Dipropionate 0.05 % 1 application to affected area Externally Once a day for 30 days 02/25/2019 Not-Taking Kenalog Not-Taking Ciclopirox Not-Takin g Tolnaftate 1 % 1 application Externally Once a day for 30 days 07/05/2021 Not-Taking Multivitamin Not-Samuel ing Ketoconazole 2 % 1 application Externally Once a day for 30 days 12/01/2022 Not-Taking Doxycycline Not-Taki ng Biofreeze Cool The Pain XL 5 % 1 patch as needed Externally Three times a day 10/05/2023 Active Clindamycin HCl 300 MG 1 capsule Orally every 12 hrs for 7 day(s) 05/06/2024 Not-Taking zzzCompression Stockings 20-30mm Hg . . . for . Not-Taking Metoprolol Succinate ER Active Flecainide Acetate 50 MG as directed Ora lly twice a day Active Xarelto 25 Active Rosuvastatin Calcium Active Tubular compression stockings as directed wear daily 10/11/2021 Activ e Losartan Potassium 100 MG 1 tablet Orall y Once a day for 30 day(s) Active Ampicillin Active Advair Diskus Active Night Splint AFO - L1930 1 wear at rest for 30 days Active Albuterol PRN Active Gabapentin 300 MG TAKE 1 CAPSULE BY MOUTH THREE TIMES DAILY Oral for 30 Days Active Ciclopirox Olamine N ot-Taking vitamin Not-Taking LamISIL 250 MG 1 tablet Orally Once a day for 90 days 02/28/2014 Not-Taking Calcium Not-Taking Ciclopirox Olamine 0.77% external Apply to [...] Prep Wipes - as directed 06/01/2020 Not-Taking Social History Tobacco Use: Social History [...] Problem Status W/U Status Risk Notes Problem Plantar fasciitis of right foot (760608786632611 ) Plantar fasciitis of right foot (M72.2) Active confirmed Problem Interstitial myositis (44657011) 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) Active confirmed Vital Signs Height 5 ft 3 in in 11/25/2024 Weight 166 lbs 11/25/2024 BMI 29.4 kg/m2 11/25/2024 Blood pressure systolic 120 mm Hg 11/26/19 25 Blood pressure diastolic 70 mm Hg 025 Procedures Procedure Date Ordered Date Performed Result Body Sit e 19699-FXHNIWJ NAIL, 6 OR MORE 11/25/2024 N/A 04814,[id number]-PQC TENDON SHEATH/LIGAMENT 11/25/2024 N/A Encounters Encounter Location Date Provider Diagnosis [facility] [address] [place] [address] 11/25/2024 Lani Black Tinea unguium B35.1 ; Bursitis of right foot M77.51 ; Pain in right toe(s) M79.674 ; Pain in left toe(s) M79.675 ; Pain in right foot M79.671 ; Plantar fasciitis of right foot M72.2 and 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 Assessments Encounter Date Diagnosis (ICD Code) Assessment Notes Treatment Notes Treatment Clinical Notes Section Notes 11/25/2024 Tinea unguium (ICD-10 - B35.1) 11/25/2024 Bursitis of right foot (ICD-10 - M77.51) 11/25/2024 Pain in right toe(s) (ICD-10 - M79.674) 11/25/2024 Pain in left toe(s) (ICD-10 - M79.675) 11/25/2024 Pain in right foot (ICD-10 - M79.671) 11/25/2024 Plantar fasciitis of right foot (ICD-10 - M72.2) Patient Educated with: HEEL CORD STRETCHES.pdf (HEEL CORD STRETCHES.pdf) Patient Educated with: RICE THERAPY.pdf (RICE THERAPY.pdf) Patient Educated with: HEEL CORD STRETCHES.pdf (HEEL CORD STRETCHES.pdf) Patient Educated with: INJECTIONTHERA PY.pdf (INJECTIONTHER APY.pdf) 11/25/2024 Interstitial myositis of right foot (ICD-10 - M60.171) Plan Of Treatment Medication Medication Name Sig Start Date Stop Date Notes Night Splint AFO - L1930 1 wear at rest for 30 days Treatment Notes Assessment Notes Plantar fasciitis of right foot Patient Educated with: HEEL CORD STRETCHES.pdf (HEEL CORD STRETCHES.pdf) Patient Educated with: RICE THERAPY.pdf (RICE THERAPY.pdf) Patient Educated with: HEEL CORD STRETCHES.pdf (HEEL CORD STRETCHES.pdf) Patient Educated with: INJECTIONTHERAPY.pdf (INJECTIONTHERAPY.pdf) Pending Test Test Name Order Date 30960-MHNZERR NAIL, 6 OR MORE 11/25/2024 54800,[id number] TENDON SHEATH/LIGAMENT 0 11/25/2024 Next Appt Details Follow Up: 2 Months, Reason: Provider Name:Lani Ricketts , 03/03/2025 02:30:00 PM, [address] [place] [address], [phone], Procedure Notes * Category Sub-Category Detail Notes Debride Nail 6-10 Nail debridement Due to [...] use of a nail nipper and/or dremel-type pulp grinder and blender, to a more viable healthy nail plate [...] to maintain effectiveness in symptomatic relief - Patient chooses debridement treatmen t only; no pharmaceutical tx Progress Notes * Lainey MORRELL RDOB:[birth year] (84 yo F)Acc No.[id number]:11/25/2024 Progress Note Patient:?Lainey MORRELL R Provider:?Lani Ricketts DPM :1940???Age:84 Y???Sex:Female D ate:11/25/2024 Address:[address] [place], [place] [id number] Pcp:Yareli Lobato NP Subjective: * Chief Complaints: * ???Painful nail(s) aggrevate d by shoes causing difficulty standing/walkingHeel pain * HPI: ???Painful Nails:?Pt States Last PCP Visit:?Date:?08/01/2024 ???Heel pain:?Location:?LEFT , Proximal plantar aspect of Heel, RIGHT.?Duration:?, several weeks.?Course:?worse.?Aggravated:?any pressure when in bed , standing, walking, walking first thing in the morning/after rest.?Treatments:?rest/alter normal daily activity, stretching, change in shoes.? * ROS:?General/Constitutional:?Nausea?denies.?Vomiting?denies.?Hunger Thirst?denies.?Loss appetite?denies.?Chills?denies.?Fatigue?denies.?Fever?denies.?Night Sweats?denies.?Unexplained weight loss?denies.?Unexplained [...] walking. ?Marital status: . 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 * Medications:?TakingAlbuterol , Notes to Pharmacist: PRNAmpicillin Losartan Potassium 100 MG Tablet 1 tablet Orally Once a day Advair Diskus Flecainide Acetate 50 MG Tablet as directed Orally twice a day Metoprolol Succinate ER Rosuvastatin Calcium Xarelto 25 Tubular compression stockings as directed wear daily Biofreeze Cool The Pain XL 5 % Patch 1 patch as needed Externally Three times a day Gabapentin 300 MG Capsule TAKE 1 CAPSULE BY MOUTH THREE TIMES DAILY Oral Taking Albuterol , Notes to Pharmacist: PRNTaking [...] needed Externally Three times a day Taking Gabapentin 300 MG Capsule TAKE 1 CAPSULE BY MOUTH THREE TIMES DAILY Oral Not-Taking/PRNzzzCompression Stockings 20-30mm Hg 1 pair closed [...] 68, BMI: 29.4, Shoe size: 9.5, BP: 120/70 mm Hg, Wt- k.3 kg. * Examination: ???General Examination: ?GENERAL APPEARANCE:?Reveals a pleasant, alert, well nourished, well- developed, well hydrated individual, who demonstrates proper attention to hygiene/body habitus, and is in no acute distress ,.?Nails: ?NAILS are:?Elongated, overgrown, dystrophic, lytic, greater than 3mm thick, discolored and friable with crumbly malodorous subungual debris, with pain on palpation , , TA, T1, T2, T3, T4, T5, T6, T7, T8, T9.?Dermatologic: ?SKIN FINDINGS:?Skin shows sign(s) of, erythema, scaling, in a moccasin fashion, no fissure(s) present, B/L.?Vascular: ?DP PULSES (B):?2/4, B/L.?PT PULSES (B):?2/4, B/L.?Heel Pain: ?INSPECTION:? Pain on Palpation to Plantar Fascia med. and central bands, intrinsic musc., infra-calcaneal bursa, and med calc tubercle , RIGHT foot, No pain: posterior/superior heel, achilles bursa/tendon, sinus tarsi, peroneals, or with lateral heel compression; no limited STJ ROM, calor, or ecchymosis,RIGHT foot.?Orthopedic: ?GAIT ABNORMALITY:?antalgic.?FOOT MORPHOLOGY:? Pes Planus structure, Decreased Ankle joint dorsiflexion ROM, knee extended.?FOOTWEAR EVALUATION:?shoe gear properties exacerbate patients foot/toe deformity.?Neurological: ?TINEL'S COMPRESSION:?Negative tarsal tunnel, ubaldo pedis, and medial calcaneal nerves.? Assessment: * Assessment: 1.?Tinea unguium - B35.1???2 .?Bursitis of right foot - M77.51 (Primary)???Specify :Acute problem, Uncomplicated (3)???3.?Pain in right toe(s) - M79.674???4.?Pain in left toe(s) - M79.675???5.?Pain in right foot - M79.671???6.?Plantar fasciitis of right foot - M72.2???Specify :Acute problem, Complicated w/ Multiple Tx Options(4),Dx New problem, Prognosis Uncertain (4)???7.?Interstitial myositis of right foot - M60.171??? Plan: * Treatment: 2.?Plantar fasciitis of righ t foot? Start Night Splint AFO - L1930, 1, wear, at rest, 30 days, 1, Refills 0.?Procedure: 90486,A2254-DKM TENDON SHEATH/LIGAMENT Notes: Patient Educated with: HEEL CORD STRETCHES.pdf (HEEL CORD STRETCHES.pdf) Patient Educated with: RICE THERAPY.pdf (RICE THERAPY.pdf) Patient Educated with: HEEL CORD STRETCHES.pdf (HEEL CORD STRETCHES.pdf) Patient Educated with: INJECTIONTHERAPY.pdf (INJECTIONTHERAPY.pdf)?? * Procedures:?Debride Nail 6-10:?Nail debridement?Due to the [...] use of a nail nipper and/or dremel-type pulp grinder and blender, to a more viable healthy nail plate [...] to maintain effectiveness in symptomatic relief - 57950.?Patient chooses ?debridement treatment only; no pharmaceutical tx.? * Procedure Codes:?65032 DEBRI DE NAIL, 6 OR MORE, Modifiers: XS 92223 INJ TENDON SHEATH/LIGAMENT, Modifiers: XS J0702 INJ BETAMETHSN ACTAT&SOD PHOSPH-3MG * Preventive Medicine:? ??Counseling:?Discussion:?-13: Office or other [...] have encouraged the patient to call the office.?Myositis/Tendonitis:?MYOSITIS/BURSITIS: We reviewed the causes of the patients pain and inflammation as a result of their myositis condition, which may include, but not be limited to, injury, overuse, fatigue, strain due to activity/shoegear/foot structure. We also discussed other sources of myositis including auto-immune disease, or the use of drugs such as statins/colchicine/excess alcohol consumption. We discussed several treatment options which include rest, ice, topical anti-inflammatories such as Biofreexe gel/Aspercream/Voltaren gel, oral anti-inflammatories (if medically appropriate), oral steroid therapy such as prednisone, muscle relaxers such as Valium, stretching, deep tissue massage, proper hydration, tonic quinine water as needed, mineral supplements such as Co-Q 10/Mg, and Physical Therapy. The advantages and disadvantages of each option were discussed and the patients questions re: shoegear, inserts, activity level, PO vs Topical medications (and their respective potential complications/drug interactions/side effects), consistency in home treatment regimens for optimal succes. Answers to patient questions and treatment options were understood to their verbally confirmed satisfaction.?Stretching Exercises:?Stretching and deep tissue massage exercises for the patients injury/diagnosis were discussed and demonstrated.? ??Screening/Special Tests:?Fall Risk?Screening:?No falls in the past year ?FALLS: Screening for Future Fall Risk?Have you had any falls with injury in the past year??No * Follow Up:?2 Months * Images: * Sign off status: Completed true * Provider:?Lani Ricketts DPM Date:?2024 Generated for Violet desai/Sylvester/Dyllan on:?12/10/2024 03:09 PM EDT History and Physical Notes * HPI (History of Present Illness) Category Sub-Category Detail Notes Category Not es Heel pain Duration: , several weeks Location: LEFT , Proximal plan tar aspect of Heel, RIGHT Aggravated: any pressure when in bed , standing, walking, walking first thing in the morning/after rest Course: worse Treatments: rest/alter normal da juan activity, stretching, change in shoes Painful Nails Pt States Last PCP Visit: Date:: 08/01/2024 Examination Category Sub-Category Detail Notes Category Not es Ingrown Nail INSPECTION: Neurological TINEL'S COMPRESSION: Negative ta rsal tunnel, ubaldo pedis, and medial calcaneal nerves Dermatologic SKIN FINDINGS: Skin shows sign( s) of, erythema, scaling, in a moccasin fashion, no fissure(s) present, B/L Orthopedic GAIT ABNORMALITY: antalgic FOOT MORPHOLOGY: Pes Planus structure , Decreased Ankle joint dorsiflexion ROM, knee extended FOOTWEAR EVALUATION: shoe gear propertie s exacerbate patients foot/toe deformity General Examination GENERAL [...] subungual debris, with pain on palpation , , TA, T1, T2, T3, T4, T5, T6, T7, T8, T9 Heel Pain INSPECTION: Pain on Palpatio n to Plantar Fascia med. and central bands, intrinsic musc., infra-calcaneal bursa, and med calc tubercle , RIGHT foot, No pain: posterior/superior heel, achilles bursa/tendon, sinus tarsi, peroneals, or with lateral heel compression; no limited STJ ROM, calor, or ecchymosis,RIGHT foot
--- OUTSIDE RECORDS SUMMARY | 2024-12-10 15:10 | XMS_ITS ---
Author Organization [facility] Address [address] [place] [address] Care Team Providers Care Drilling Contractor Name Role Phone Luis Alfredo BRODY, Yareli Primary Care Provider Unava ilable Black, Lani Unavailable [phone] Allergies No Known Allergies REASON FOR VISIT [...] Ordered Date Performed Result Body Sit e 97873- Debride <25 sq cm 05/30/2024 N/A Encounters Encounter Location Date Provider Diagnosis [facility] [address] [place] [address] 05/30/2024 Lani Black Abscess of left foot [...] Treatment Pending Test Test Name Order Date 55466- Debride <25 sq cm 05/30/2024 Next Appt Details Follow Up: 3-4w, Reason: Provider Name:Lani Ricketts , 03/03/2025 02:30:00 PM, [address] [place], [address], Procedure Notes * Category Sub-Category Detail Notes [...] of the wound post debridement is stable (36923) Progress Notes * Lainey MORRELL RDOB:[birth year] (84 yo F)Acc No.[id number]:05/30/2024 Progress Notes Patient:?Everett Lainey R Provider:?Lani FILIBERTO Ricketts :1940???Age:84 Y???Sex:Female D ate:05/30/2024 Address:[address] [place], [place] [phone] Pcp:Yareli Lobato NP Subjective: * Chief Complaints: [...] walking. ?Marital status: . 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 * Medications:?TakingLosartan Potassium 100 MG Tablet 1 [...] stockings as directed wear dailyTaking zzzCompression Stockings 20-30mm Hg 1 pair closed [...] (2)??SIZE, (A)5mm X 4mm X 2mm,(B) 10mm [id number] BASE, granular, RIM, hyperkeratotic, UNDERMINING, absent, TRACKING, [...] of the wound post debridement is stable (77722).? * Procedure Codes:?79559 ACTIV E WOUND CARE/20 CM OR <, [...] Ricketts DPM Date:?2023 Generated for Violet desai/Sylvester/eTransmitting on:?12/10/2024 03:09 PM EDT History and Physical [...] SIZE, (A)5mm X 4mm X 2mm,(B) 10mm [id number] BASE, granular, RIM, hyperkeratotic, UNDERMINING, absent, TRACKING, Full thickness breakdown of skin, DRAINAGE, serosanguineous, mild, NECROTIC TISSUE, loosely-adherent, yellow slough, MALODOR, absent, CALOR, absent, ERYTHEMA, absent, PAIN ON PALPATION, present, active bleeding (A) Orthopedic FOOTWEAR EVALUATION: General Examination GENERAL APPEARANCE: Reveals a pleasant, alert, well nourished, well-developed, well hydrated individual, who demonstrates proper attention to hygiene/body habitus, and is in no acute distress , Denies fever, chills, malaise, lymphadenopathy Vascular DP PULSES (B): 2/4, B/L PT PULSES (B): 2/4, B/L Nails NAILS are:
== END 2024-12-10 13:09 | disposition home or self-care (01) ==
LOC: HO.MAMMO 13:08
PROVIDERS: PCP Nurse Practitioner Family; Visit Provider Nurse Practitioner Family
DX: Z12.31 Encounter for screening mammogram for malignant neoplasm of breast (principal)
CPT/HCPCS: 77063; 77067

== ENCOUNTER → 2024-12-10 13:30 | Outpatient (BNV) | payer MEDICARE, SELFPAY | PROVIDERS: PCP Nurse Practitioner Family; Visit Provider Internal Medicine | DX: Z12.31 Encounter for screening mammogram for malignant neoplasm of breast (principal) | CPT/HCPCS: 77063; 77067 ==

== ENCOUNTER 2024-12-26 13:35 | Outpatient (AMB) | payer MEDICARE, SELFPAY ==
[2024-12-26 13:39] VITALS: BP 128/50; PULSE 66; O2SAT 96; BMI 32.2
--- NOTE | 2024-12-26 13:39 | A.OFFVIS_ITS ---
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 apparently back in October her respiratory symptoms got much worse with productive cough and green sputum. She was having hard time breathing with shortness of breath and likely wheezing. She was initially evaluated and was she was given a Z-Joshua. And then subsequent after that she was given some prednisone. She was asked to call back if she had any difficulties. Months past and she has not called back. However, her breathing has gotten where were then productive sputum yellowish in color. Sometimes it does gag her with coughing. on further questioning the patient usually gets worse in October. She does have a living space in the basement that this been a good amount of time in. No obvious mold. No birds or animals. 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 Nobody smokes in the house. We did look at her last chest x-ray from August 2011 that she had for her cardiac issues. The time of that that she had some tram tracking suggesting some bronchiectatic changes in the right base. She has not had a x-ray for does prolonged bronchitis. On exam she does have some coarse BS, end exhalation wheezing and bronchospastic cough. 01/23/2023 the patient is here for pulmonary follow-up visit. She has been complaining of a cough that is nonproductive in nature. Now for the last few months. Seems to be getting slightly better. The phlegm is yellowish in color. Initially she had a hard time sleeping because of the cough. This complained of sinusitis. The patient did try the nasal sprays but the nasal sprays cause a bleeding from the nose. Therefore she stopped them. She also has been using her inhalers with partial improvement of the symptoms. No significant wheezing on exam although she does have a productive cough. Will go and start her on a course of doxycycline to treat her for a lower respiratory infection. The patient also has been complaining of increased fatigue and daytime drowsiness. I did recommend she get a chest x-ray in 1-2 weeks. Will follow up with the results 07/26/2023 the patient is here for a pulmonary follow-up visit. She is still having hard time with her breathing and her cough. Apparently it got worse again. Now with yellowish greenish phlegm. Very tenacious difficult to expectorate. She goes to coughing spells moderate severity. She has concerned that she continues to have this chronic bronchitis issue. Seems that she has a baseline chronic bronchitis but this is an exacerbation at this time. No significant wheezing although she does have rhonchi in a very bronchospastic cough at this time. We were able to get a sputum specimen for culture. The patient was start low-dose prednisone and doxycycline. She does take flecainide so she does have limited options when it comes to antibiotics. She also was prescribed Augmentin over the fall and she did develop significant diarrhea and she had to stop it. Her last chest x-ray back over the summer was okay. If she has any worsening symptoms and does not respond to the therapy she will get a repeat x-ray. If the x-ray is not helpful then consider additional imaging studies suggest a CT scan of the chest and also and or bronchoscopy. 09/27/2023 the patient is here for a pulmonary follow-up visit. The patient overall has been feeling a little better. She still coughing the cough is still productive in nature. Although significantly better than before. She has been using her inhalers although her adverse no longer available she is taking the generic that she is concerned because is very expensive. We did talk about the [employer] card and [employer] and she can get that for better walker and I did give her a script for that. In the meantime for chronic bronchitis she did have a culture for strep pneumo and therefore we did vaccinated for that with the Prevnar 20 vaccine today. She was also treated with Augmentin. Therefore, will go ahead and request she start Daliresp to treat her chronic bronchitis with the hope that there was decrease the chest congestion. If she continues to be congested then we should send sputum to make sure that we completely eradicated the strep pneumo. Her chest x-ray was read as clear back over the summer 2022. If her symptoms persist she will come back and get another x-ray. Now the option to get a CT scan of chest and or a bronchoscopy for both diagnostic and therapeutic interventions. 01/31/2024 the patient is here for a pulmonary follow-up visit. She is due struggling with a cough. Productive in nature yellowish phlegm. Worse at nighttime. Moderate severity. The patient did have a visit back in September where we did give her Prevnar 20 vaccine and then we did treat her with doxycycline and also treated her where a with Augmentin for the strep pneumo lung infection that cultured in her sputum. She initially did feel better but then again now symptoms are worsening again. Will go ahead and give her Augmentin again for couple weeks and then get another culture to make sure is clear. She was supposed to get an x-ray. Will go ahead and requested at this time prior to her leaving. And then if still abnormal consider a CT scan of the chest and also consider bronchoscopy for therapeutic and diagnostic interventions. She has worried about a which still inside the house. At this point would still is off so therefore believe that is affecting her breathing right now. But indeed it can affect her breathing and caused irritation to the airways during the winter months. Will follow-up in a couple months. If she has any worsening symptoms she will call for an earlier assessment. 04/17/2024 the patient is here for a pulmonary follow-up visit. She is still struggling with breathing. She has had significant chest congestion. Suppurative airway disease. She did have a sputum culture done and was positive for Pseudomonas in addition to Haemophilus influenzae. She can not tolerate quinolones because she is on flecainide. Unfortunately. The patient ultimately had a CT scan of the chest which we personally reviewed demonstrating bilateral bronchiectasis some treating budding some mucus plugging. Based on the fact that she has bronchiectasis the patient was started on inhaled tobramycin 28 days on. She just completed 28 days. She feels like cough did get better. A lthough recently she started noticing increasing chest tightness and wheezing in addition to more chest congestion. We were able to get another sputum culture in the office. Unfortunately again she is on flecainide has limited antibiotic coverage. Will go ahead and treated with doxycycline for the possibility of recurrent Haemophilus and also will go ahead and give her some prednisone because she is having increased chest tightness and wheezing. Will continue to plan to continue the inhaled tobramycin 28 days on 20 days off. Although she did have some increased wheezing not sure if is related to the inhaled ZAK. We have to reassess when she restarts it. The other option 2 would be to consider bronchoscopy if the patient continues to be symptomatic for proper therapeutic cleaning of the airways assessing any airway disease or obstructions in addition to that making sure that we get the cultures. Therefore, go ahead and treat the patient now and consider bronchoscopy if the patient is no better. Also, will have the patient have some blood work including immune status to assess any potential etiology for her persistent lower respiratory infections. 05/16/2024 the patient is here for a pulmonary follow-up visit. The patient overall is doing well from a respiratory status. She developed a rash however. Mainly affecting her neck area her hands and also her feet and heels. She is not sure if is related to the ZAK or after that she did take some doxycycline or his related to anything else. Will go ahead and request blood work to assess for any connective tissue conditions that may be doing this specially with her sedimentation rate of 82. Will hold off on antibiotics at this time based on the symptoms in the findings. However, if her chest congestion does reoccur she is to provide additional sputum culture to see the Pseudomonas is still present so we can treated. I do not feel strongly that the rash is related to the inhaled tobramycin. If anything I believe it may be for ototoxicity from the doxycycline. Although was in her feet she had been wearing sandals start the time. The patient should be using her nebulizer for chest PT followed by the Ac apella valve. We did review her last CT scan of the chest demonstrating the bronchiectatic changes mucus plugging she also has some small pulmonary nodules that are subcentimeter in size and will require a follow-up CT scan sometime in the spring. 06/25/2024 the patient is here for sick visit. She started developing worsening respiratory symptoms last week. Started complaining of productive cough yellowish phlegm. The cough was really significant were to the point that she has not been able to sleep at nighttime. She has taken [id number]-[id number] medications with minimal relief. She started developing some cold sensation some chills. She has also felt fatigued. She was given a sick visit today. The patient so respiratory exam is fairly good just with diminished breath sound s. I do not appreciate any pneumonia. However, with the chills I want to make sure we cover her for lower respiratory infection. The patient does not have any wheezing at this time. Her cough is significantly she is having hard time sleeping. She needs a cough medicine. Will provide her some codeine cough medication that she can use at nighttime. If the patient is no better she will come in have an x-ray and call me. 08/20/2024 the patient is here for pulmonary follow-up visit. She continues to have productive cough and chest congestion and wheezing. She feels a little better than usual but she is still struggling with the on a daily basis. She also notices that she coughs a lot when she is laying flat and also when she is eating. She may have a component of micro aspirations. Will go ahead and request a barium swallow. In addition to that she has had multi polymicrobial infections likely secondary to her bronchiectasis and significant mucus burden. She is working with chest PT using hypertonic saline using the flutter valve. We did talk about considering bronchoscopy for therapeutic cleaning of the airways and also for deep cultures. She is going to consider it. In meantime we did get a sputum culture. Will wait for the culture to come back before treating her but if she feels like she is getting worse she can always call and we can send her empiric antibiotics. She will continue to use her respiratory therapy. She is concerned about using too much albuterol because of the issue of atrial fibrillation. Therefore she will monitor closely for any worsening symptoms. Will follow-up in a couple months. If she has any issues prior to that she will call. If she is agreeable to a bronchoscopy she can always call and we can set set one up. 10/23/2024 the patient is here for a pulmonary follow-up visit. She continues to cough. But 2 weeks ago she started developing a raspy voice some laryngitis. Likely she picked up a respiratory illness and then worsening respiratory disease. She has increased chest congestion and burden. The mucus is yellowish in color. We had multiple cultures previously demonstrating multiple organisms. She has underlying bronchiectasis on exam. She is using the nebulizer and also CPT with flutter valve and also with hypertonic saline. The issue is that she takes flecainide and therefore she is limited as far as some of the therapies that could be provided for her bronchiectasis. Will go ahead and start her on doxycycline and she can start that twice a day and then hopefully we can wean her down to once a day for prophylactic dose. She continue with the therapy. If she is not better she will call back otherwise follow-up in a couple months and assess her progress. 12/26/2024 the patient is here for pulmonary follow-up visit. Overall she is feeling better. She is tolerating the doxycycline. Although she was outside and she did get some photo toxicity. It is only minimal to the hand. Her chest congestion significantly improved. She still coughing up some phlegm but usually light yellowish in color unless in amount. She is also performing well with her nebulized therapy and CPT therapy. She did undergo the barium swallow. We did review it. Seems like she does have some penetration to the larynx although no obvious aspiration. Likely that she does have some degree of aspirations of micro aspirations as leading to the recurrent bronchitis and recurrent infections. Therefore, we did talk about different swallowing techniques such chin talk, alternate liquids and solids and also double swallowing. She is going to attempt to follow these instructions since if she does better with swallowing. She does have concerns about lower extremity edema. Seems to be getting worse. She is wondering if gabapentin can cause swelling. She does not take a big dose though. She is going to see a primary care doctor on Monday. He is going to also get a lower extremity ultrasound sometime next week. She will follow-up with them. She maintain a low-sodium diet. We did talk about considering the compression stockings or compression pneumonic device and or elevating the legs. Diuretics may be also helpful for few days to try to improve her fluid status. 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 FORMERLY [facility], [facility] Medical History (Updated 06/25/24 @ 20:32 by Gagan Ratliff MD) Rash Bronchiectasis Pseudomonal pneumonia Abnormal chest x-ray Statin intolerance Essential hypertension Atherosclerotic cardiovascular disease PAF (paroxysmal atrial fibrillation) Non-rheumatic aortic stenosis Murmur, heart GERD (gastroesophageal reflux disease) Cough Asthma-COPD overlap syndrome Bronchitis Surgical History History of left knee replacement History of carpal tunnel release Family History Mother Breast cancer Father Heart attack Other Allergies Social History Alcohol intake: former Comment: stiffness Patient Tobacco Use Status: Never used Tobacco Review of Systems Const Denies chills, Denies fatigue, Denies fever(s), Denies weight gain and Denies weight loss ENT Denies dizziness Card Denies chest pain, Denies leg edema, Denies lightheadedness, Denies palpitations, Denies dyspnea on exertion, Denies orthopnea and Denies other Resp Denies cough, Denies dyspnea on exertion and Reports wheezing GI Denies hematochezia and Denies change in stool character Musc Denies abnormal gait, Denies muscle weakness, Denies numbness, Denies radiating pain into limb and Denies tingling Skin/Breast Reports erythema and Reports rash Neuro Denies abnormal gait, Denies dizziness, Denies numbness and Denies tingling Endo Denies fatigue and Denies palpitations Aller/Immun Reports wheezing Physical Exam Vital Signs: Last Vital Signs Pulse 66 12/26/24 13:39 BP 128/50 L 12/26/24 13:39 Pulse Ox 96 12/26/24 13:39 Oxygen Delivery Method Room Air 12/26/24 13:39 BMI result Body Mass Index 32.2 Const General: alert Neck Neck: Yes normal visual inspection, Yes full ROM and Yes no lymphadenopathy Chest Chest palpation & inspection: normal inspection of the chest Resp Effort & Inspection: no cough and prolonged expiratory phase Auscultation: no rhonchi, no wheezes and diminished lung sounds Cardio Rate: regular rate Rhythm: regular rhythm Heart sounds: S1 normal heart sound present and S2 normal heart sound present GI Palpation (GI): Soft to palpation and nontender Auscultation: normal bowel sounds Skin General skin exam: rashes and/or lesions noted Assessment & Plan Assessment & Plan (1) Bronchiectasis: Code(s): J47.9 - Bronchiectasis, uncomplicated Category: Medical Qualifiers: Bronchiectasis type: with acute exacerbation Qualified Code(s): J47.1 - Bronchiectasis with (acute) exacerbation (2) Asthma-COPD overlap syndrome: Code(s): J44.9 - Chronic obstructive pulmonary disease, unspecified Category: Medical (3) Cough: Code(s): R05 - Cough Category: Medical Qualifiers: Cough type: chronic Qualified Code(s): R05.3 - Chronic cough Plan nebs 2 times a day followed by [facility] for CPT decrease Doxycycline BID->daily continue Flonase continue Astelin nasal spray nasal rinsing with saline Continue Advair barium swallow, dysphagia +dysphagia diet recs given ARELIS as needed F/U 3-4 months Coding Level of Care Code Est Pt Level 4 (12670) Complex EM visit Add On G2211 Diagnoses Bronchiectasis with acute exacerbation J47.1 Bronchiectasis type: with acute exacerbation Asthma-COPD overlap syndrome J44.9 Chronic cough R05.3 Cough type: chronic Time Spent (min) 17
--- OUTSIDE RECORDS SUMMARY | 2024-12-26 14:13 | XMS_ITS | Patient Health Record ---
Author Organization [facility] Re[facility] [place] Address [address] [place] [address] Care Team Providers Care Wax Blender Name Role Phone Luis Alfredo BRODY, Yareli Primary Care Provider Unava ilable Black, Lani Unavailable [phone] Allergies No Known Allergies Reason For Referral [...] Problem Acquired hammer toe of right foot (9234095566494752) Other hammer toe(s) (acquired), right foot (M20.41) Active confirmed Problem Acquired hammer toe of left foot (5634194934674140) Other hammer toe(s) (acquired), left foot (M20.42) Active confirmed Problem Ulcer of toe (282951618) Non-pressure chronic ulcer of other part of right foot limited to breakdown of skin (L97.511) Active confirmed Problem Ulcer of toe (517086591) Non-pressure chronic ulcer of other part of left foot limited to breakdown of skin (L97.521) Active confirmed Problem Chronic ulcer of foot (581485248) 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) Active confirmed Problem Nonstageable pressure ulcer of left foot (26288832790028425) 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) Active confirmed Problem Localized, primary osteoarthritis of the ankle and/or foot (984993084) Primary osteoarthritis, right ankle and foot (M19.071) Active confirmed Problem Localized, primary osteoarthritis of the ankle and/or foot (779523845) Primary osteoarthritis, left ankle and foot (M19.072) Active confirmed Problem Acquired hammer toe of left foot (8758946913342917) Other hammer toe(s) (acquired), left foot (M20.42) Active confirmed Problem Arthritis (1545432) Arthritis (M19.90) Active confirmed Problem 99224575157183 Pressure ulcer, heel, left, unstageable (L89.620) Active confirmed Problem Acquired hallux valgus (18536395) 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 confirmed Response to treatment - Improvement Problem Plantar fasciitis of right foot (67222474782056258) Plantar fasciitis of right foot (M72.2) Active confirmed Problem Interstitial myositis (25970596) 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) Active confirmed Problem 56366617 Ulcer of left heel and midfoot, limited to breakdown of skin (L97.421) Active confirmed Problem 28609343620813742 Pressure injur y of right heel, unstageable (L89.610) Active confirmed Problem Ulcer of toe of right foot (disorder) (76872281740930837) Skin ulcer of toe of right foot, limited to breakdown of skin (L97.511) Active confirmed Response to treatment Problem 868787023 Pressure ulcer, ankle, left, unstageable (L89.520) Active confirmed Problem 80894476600586841 Skin ulcer of left heel, limited to breakdown of skin (L97.421) Active confirmed Problem 074208339 Skin ulcer of right heel, limited to breakdown of skin (L97.411) Active confirmed Problem 917354596121652 Pressure injury of right foot, unstageable (L89.890) Active confirmed Problem Localized, primary osteoarthritis of the ankle and/or foot (649140820) Arthritis of joint of lesser toe, left (M19.072) Active confirmed Problem Pressure injury of left foot stage I (disorder) (028586830393817) Pressure injury of left foot, stage 1 (L89.891) Active confirmed Response to treatment,Re sponse to treatment - worse Problem Ulcer of toe of left foot (disorder) (46247996756100387) Skin ulcer of toe of left foot, limited to breakdown of skin (L97.521) Active confirmed Response to treatment Problem Pressure injury of right foot stage I (disorder) (131757061248848) Pressure injury of right foot, stage 1 (L89.891) Active confirmed Response to treatment worse Vital Signs Blood pressure diastolic 70 mm Hg 11/25/2024 Height 5 ft 3 in in 11/25/2024 Blood pressure systolic 120 mm Hg 11/25/2024 Weight 166 lbs 11/25/2024 BMI 29.4 kg/m2 11/25/2024 Procedures Procedure Date Ordered Date Performed Result Body Sit e 80904-XAOXCRZ NAIL, 6 OR MORE 01/11/2024 N/A 42295-MDQPQQI NAIL, 6 OR MORE 05/06/2024 N/A 66352 I&D ABSCESS- SIMPLE,SINGLE 05/06/2024 N/A 94423- Debride <25 sq cm 05/30/2024 N/A 80839-ADJYJRS NAIL, 6 OR MORE 08/26/2024 N/A 49272-Rpkvjios Plate 08/26/2024 N/A 04176-RKNRHQG NAIL, 6 OR MORE 11/25/2024 N/A 56731,Q7171-DNM TENDON SHEATH/LIGAMENT 11/25/2024 N/A Encounters Encounter Location Date Provider Diagnosis [facility] [place] [address] [place] [address] 01/11/2024 Lani Black Tinea unguium B35.1 ; Pain in right toe(s) M79.674 ; Pain in left toe(s) M79.675 and Acquired hallux interphalangeus of left foot M20.[address] [address] 05/06/2024 Lani Black Tinea unguium B35.1 ; Tinea pedis of both feet B35.3 ; Pain in right toe(s) M79.674 ; Pain in left toe(s) M79.675 ; Abscess of left foot L02.612 ; Pressure injury of left foot, stage 1 L89.891 and Pressure injury of right foot, stage [address] [address] 05/30/2024 Lani Black Abscess of left foot L02.612 and Skin ulcer of left heel, limited to breakdown of skin L97.[address] [address] 08/26/2024 Lani Black Tinea unguium B35.1 ; Pressure injury of right heel, unstageable L89.610 ; Pain in right toe(s) M79.674 ; Pain in left toe(s) M79.675 and Ingrown nail L60.[address] [address] 11/25/2024 Lani Black Tinea unguium B35.1 ; Bursitis of right foot M77.51 ; Pain in right toe(s) M79.674 ; Pain in left toe(s) M79.675 ; Pain in right foot M79.671 ; Plantar fasciitis of right foot M72.2 and 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 [address] 05/06/2024 Lani Black Assessments Encounter Date Diagnosis (ICD Code) Assessment Notes Treatment Notes Treatment Clinical Notes Section Notes 01/11/2024 Tinea unguium (ICD-10 - B35.1) 01/11/2024 [...] myositis of right foot (ICD-10 - M60.171) 05/06/2024 Other 05/30/2024 Other 08/26/2024 Other Plan Of Treatment Pending Test Test Name Order Date X ray : Ankle, left 2V 11/23/2020 *Wound Culture 05/06/2024 *Liver Function Test (LFT) 02/24/2014 X ray : Foot, left 3V 06/25/2013 X ray : Foot, right 3V 06/25/2013 15995-MAYADBH NAIL, 6 OR MORE 06/21/2021 39230-VDJNXRC NAIL, 6 OR MORE 10/11/2021 88863-IIMFUOO NAIL, 6 OR MORE 01/20/2022 13245-NEZOEGK NAIL, 6 OR MORE 04/28/2022 66853-IYJFKEG NAIL, 6 OR MORE 06/01/2020 73602-HOAWJWX NAIL, 6 OR MORE 11/23/2020 83011-QFIGVZZ NAIL, 6 OR MORE 03/01/2021 23732-NELSNRZ NAIL, 6 OR MORE 05/06/2024 38798-JDUTDCF NAIL, 6 OR MORE 08/26/2024 07718-NYCADSU NAIL, 6 OR MORE 11/25/2024 64270-RUZRKQO NAIL, 6 OR MORE 08/25/2022 45669-BERZIZC NAIL, 6 OR MORE 12/01/2022 86315-ODFNWJD NAIL, 6 OR MORE 03/13/2023 29583-YLGMYQA NAIL, 6 OR MORE 06/26/2023 65996-ITVBCDX NAIL, 6 OR MORE 10/05/2023 79315-PJXBYRJ NAIL, 6 OR MORE 01/11/2024 49294-PPBBUQX NAIL, 6 OR MORE 05/12/2014 95728-BUKVHWW NAIL, 6 OR MORE 08/18/2014 65368-QMVVMFY NAIL, 6 OR MORE 12/02/2014 94984-FCAZSIC NAIL, 6 OR MORE 05/06/2015 39283-UILFNIL NAIL, 6 OR MORE 09/07/2015 72461-QJMLTMV NAIL, 6 OR MORE 02/08/2016 98686-ZTPKYQL NAIL, 6 OR MORE 06/09/2016 14448-XKEGTLC NAIL, 6 OR MORE 11/02/2016 21505-UPGURDL NAIL, 6 OR MORE 03/07/2017 43610-IZVZQUI NAIL, 6 OR MORE 05/15/2017 72064-YZRVKVR NAIL, 6 OR MORE 08/21/2017 94839-QJGPJZR NAIL, 6 OR MORE 11/23/2017 46160-IGBOQFU NAIL, 6 OR MORE 02/05/2018 30324-WTAKDBZ NAIL, 6 OR MORE 05/07/2018 30164-QEECRXM NAIL, 6 OR MORE 08/20/2018 56006-SFIJTEP NAIL, 6 OR MORE 06/08/2011 89071-XKAIAHW NAIL, 6 OR MORE 09/07/2011 88227-AFRBBGJ NAIL, 6 OR MORE 11/16/2011 72439-KQYWSPE NAIL, 6 OR MORE 02/01/2012 01615-OKNJRRO NAIL, 6 OR MORE 04/11/2012 03414-QFETYOY NAIL, 6 OR MORE 05/07/2012 48693-BRASUCC NAIL, 6 OR MORE 07/11/2012 36090-VJXZQGU NAIL, 6 OR MORE 10/10/2012 99374-QRXOYDO NAIL, 6 OR MORE 12/17/2012 89290-HNQWPKU NAIL, 6 OR MORE 04/08/2013 07053-MSPIXNK NAIL, 6 OR MORE 06/25/2013 87123-AMIJIDX NAIL, 6 OR MORE 07/29/2013 74627-PCHXFEB NAIL, 6 OR MORE 09/24/2013 30301-PLYLRED NAIL, 6 OR MORE 12/09/2013 34967-CRTLQSX NAIL, 6 OR MORE 02/24/2014 50845-NPKNEQG NAIL, 6 OR MORE 11/19/2018 19857-SKDNDMD NAIL, 6 OR MORE 02/25/2019 61713-OVAPSJC NAIL, 6 OR MORE 06/03/2019 68890-ETUOZPN NAIL, 6 OR MORE 08/26/2019 22255-ZFLZJDJ NAIL, 6 OR MORE 03/04/2020 84485-Abmdpfcq Plate 08/20/2018 07836-Fzqkelpe Plate 08/26/2024 96587-Ipkzostg Plate 03/01/2021 34620-Gfftldfm Plate 06/21/2021 71109- Debride <25 sq cm 08/19/2021 95519- Debride <25 sq cm 10/11/2021 61797- Debride <25 sq cm 08/25/2022 43655- Debride <25 sq cm 06/21/2021 51237- Debride <25 sq cm 05/30/2024 54736- Debride <25 sq cm 12/14/2023 59656- Debride <25 sq cm 06/26/2023 28721- Debride <25 sq cm 03/04/2020 49975- Debride <25 sq cm 06/01/2020 31209 I&D ABSCESS- SIMPLE,SINGLE 024 , V2230-OUHWP/INJECT, JOINT/BURSA 1 08/25/201216905,G5496-THO TENDON SHEATH/LIGAMENT 0 11/25/2024 Next Appt Details Provider Name:Lani Ricketts , 03/03/2025 02:30:00 PM, [address] [place], [address], Insurance Providers Payer Name Payer Address Payer Phone Subscriber Number Group Number Insured Name Patient Relationship to Insured Coverage Start Date Coverage End Date Medicare National Govt [facility] [address] [place] [address] [id number] Lainey Floyd Self - patient is the insured 7 [employer] [address] [place] [address] [id number] Lainey Floyd Self - patient is the insured Medical (General) History Medical History History ICD Code chicken pox asthma Surgical History Surgery Date(Month/Year) appendectomy 1957 carpal tunnel release 04/10/2017 Left Knee replacement 02/02 carpal tunnel surgery 01/04 Hospitalization History Reason Date(Month/Year)
--- OUTSIDE RECORDS SUMMARY | 2024-12-26 14:13 | XMS_ITS ---
Author [facility] Address [address] [place] [address] Care Team Providers Care It Operations Manager Name Role Phone Luis Alfredo BRODY, Yareli Primary Care Provider Unava ilable Black, Lani Unavailable [phone] Allergies No Known Allergies REASON FOR VISIT [...] Problem Status W/U Status Risk Notes Problem 23059499344484099 Pressure injur y of right heel, unstageable (L89.610) Active confirmed Vital Signs Height 5 ft 3 in in 08/26/2024 Weight 166 lbs 08/26/2024 BMI 29.4 kg/m2 08/26/2024 Blood pressure systolic 120 mm Hg 08/26/19 25 Blood pressure diastolic 68 mm Hg 025 Procedures Procedure Date Ordered Date Performed Result Body Sit e 37606-WTBIUOK NAIL, 6 OR MORE 08/26/2024 N/A 36441-Roofnkan Plate 08/26/2024 N/A Encounters Encounter Location Date Provider Diagnosis [facility] [place] [address] [place] [address] 08/26/2024 Lani Ricketts Tinea unguium B35.1 ; [...] Treatment Pending Test Test Name Order Date 25056-ADAHEZG NAIL, 6 OR MORE 08/26/2024 16981-Zivvkxlp Plate 08/26/2024 Next Appt Details Follow Up: prn, Reason: Provider Name:Lani Ricketts , 03/03/2025 02:30:00 PM, [address] [place] [address], [phone], Procedure Notes * Category Sub-Category Detail Notes [...] Motrin was recommended for pain or discomfort (89569), Pt DEFERS matricectomy Anesthesia , was accomplished [...] use of a nail nipper and/or dremel-type rubber roller grinder, to a more viable healthy nail [...] to maintain effectiveness in symptomatic relief - 63977 Patient chooses debridement treatmen t only; no pharmaceutical tx Progress Notes * Lainey MORRELL RDOB:[birth year] (84 yo F)Acc No.[id number]:08/26/2024 Progress Note Patient:?EVERETT Lainey R Provider:?Lani Ricketts DPM :1940???Age:84 Y???Sex:Female D ate:08/26/2024 Address:[address] [place] [phone] Pcp:Yareli Lobato NP Subjective: * Chief Complaints: [...] - L60.0??? Plan: * Treatment: 2.?Ingrown nail?Procedure: 33133-Epbswpox Plate * Procedures:?Debride Nail 6-10:?Nail debridement?Due to [...] use of a nail nipper and/or dremel-type rubber roller grinder, to a more viable healthy nail [...] to maintain effectiveness in symptomatic relief - 82048.?Patient chooses ?debridement treatment only; no pharmaceutical tx.?Nail [...] Motrin was recommended for pain or discomfort (31745), Pt DEFERS matricectomy.? * Procedure Codes:?41434 Avuls ion Plate, [place]: [place] [address] DEBRIDE NAIL, 6 OR MORE, Modifiers: XS [...] activities and work, and to prevent further disability.retirement goals: Our plan is for the patient [...] Ricketts DPM Date:?2024 Generated for Violet desai/Sylvester/Dyllan on:?12/26/2024 02:13 PM EDT History and Physical Notes * [...]
--- OUTSIDE RECORDS SUMMARY | 2024-12-26 14:14 | XMS_ITS ---
Author Organization 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) Active confirmed Vital Signs Height 5 ft 3 in in 11/25/2024 Weight 166 lbs 11/25/2024 BMI 29.4 kg/m2 11/25/2024 Blood pressure systolic 120 mm Hg 11/26/19 25 Blood pressure diastolic 70 mm Hg 025 Procedures Procedure Date Ordered Date Performed Result Body Sit e 57914-ISOYKFF NAIL, 6 OR MORE 11/25/2024 N/A 80916,D1178-HEY TENDON SHEATH/LIGAMENT 11/25/2024 N/A Encounters Encounter Location Date Provider Diagnosis [facility] [place] [address] [place] [address] 11/25/2024 Lani Black Tinea unguium B35.1 ; [...] (INJECTIONTHERAPY.pdf) Pending Test Test Name Order Date 24032-HADMSJN NAIL, 6 OR MORE 11/25/2024 80763,L1708-FXC TENDON SHEATH/LIGAMENT 0 11/25/2024 Next Appt Details Follow Up: 2 Months, Reason: Provider Name:Lani Ricketts , 03/03/2025 02:30:00 PM, [address] [place] [address], [phone], Procedure Notes * Category Sub-Category Detail [...] use of a nail nipper and/or dremel-type fiberglass grinder, to a more viable healthy nail [...] Lainey MORRELL RDOB:[birth year] (84 yo F)Acc No.[id number]:11/25/2024 Progress Note Patient:?Lainey MORRELL R Provider:?Lani Ricketts DPM :1940???Age:84 Y???Sex:Female D ate:11/25/2024 Address:[address] [place], [place] [phone] Pcp:Yareli Lobato NP Subjective: * Chief Complaints: [...] walking. ?Marital status: . 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 * Medications:?TakingAlbuterol , Notes to Pharmacist: PRNAmpicillin [...] at rest, 30 days, 1, Refills 0.?Procedure: 29819,Q3617-NIW TENDON SHEATH/LIGAMENT Notes: Patient Educated with: HEEL [...] use of a nail nipper and/or dremel-type fiberglass grinder, to a more viable healthy nail [...] to maintain effectiveness in symptomatic relief - 17741.?Patient chooses ?debridement treatment only; no pharmaceutical tx.? * Procedure Codes:?12184 DEBRI DE NAIL, 6 OR MORE, Modifiers: XS 29741 INJ TENDON SHEATH/LIGAMENT, Modifiers: XS J0702 INJ [...]
--- OUTSIDE RECORDS SUMMARY | 2024-12-26 14:14 | XMS_ITS ---
Author Organization [facility] [place] Address [address] [place] [address] Care Team Providers Care Motor And Generator Assembler Name Role Phone Luis Alfredo BRODY, Yareli Primary Care Provider Unava ilable Black, Lani Unavailable [phone] Allergies No Known Allergies REASON FOR VISIT [...] Ordered Date Performed Result Body Sit e 39452- Debride <25 sq cm 05/30/2024 N/A Encounters Encounter Location Date Provider Diagnosis [facility] [place] [address] [place] [address] 05/30/2024 Lani Black Abscess of left foot [...] Treatment Pending Test Test Name Order Date 79942- Debride <25 sq cm 05/30/2024 Next Appt Details Follow Up: 3-4w, Reason: Provider Name:Lani Ricketts , 03/03/2025 02:30:00 PM, [address] [place], [address], Procedure Notes * Category Sub-Category Detail Notes [...] of the wound post debridement is stable (47338) Progress Notes * Lainey MORRELL RDOB:[birth year] (84 yo F)Acc No.[id number]:05/30/2024 Progress Notes Patient:?Everett Lainey R Provider:?Lani FILIBERTO Ricketts :1940???Age:84 Y???Sex:Female D ate:05/30/2024 Address:[address] [place], [place] [phone] Pcp:Yareli Lobato NP Subjective: * Chief Complaints: [...] walking. ?Marital status: . 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 * Medications:?TakingLosartan Potassium 100 MG Tablet 1 [...] (2)??SIZE, (A)5mm X 4mm X 2mm,(B) 10mm [id number] BASE, granular, RIM, hyperkeratotic, UNDERMINING, absent, TRACKING, [...] of the wound post debridement is stable (00607).? * Procedure Codes:?57545 ACTIV E WOUND CARE/20 CM OR <, [...] Ricketts DPM Date:?2023 Generated for Violet desai/Sylvester/eTransmitting on:?12/26/2024 02:13 PM EDT History and Physical [...] SIZE, (A)5mm X 4mm X 2mm,(B) 10mm [id number] BASE, granular, RIM, hyperkeratotic, UNDERMINING, absent, TRACKING, [...]
== END 2024-12-26 14:09 | disposition home or self-care (01) ==
LOC: HO.HPS 13:36
PROVIDERS: PCP Nurse Practitioner Adult Health; Visit Provider Hospitalist
DX: J47.1 Bronchiectasis with (acute) exacerbation (principal); J44.9 Chronic obstructive pulmonary disease, unspecified; R05.3 Chronic cough
CPT/HCPCS: 99214; G2211

== ENCOUNTER → 2024-12-26 13:35 | Outpatient (BNVA) | payer MEDICARE, SELFPAY | PROVIDERS: PCP Nurse Practitioner Adult Health; Visit Provider Hospitalist | DX: J47.1 Bronchiectasis with (acute) exacerbation (principal); J44.89 Other specified chronic obstructive pulmonary disease; R05.3 Chronic cough | CPT/HCPCS: 99212 ==

== ENCOUNTER 2024-12-31 14:10 | Outpatient (REF) | payer MEDICARE, SELFPAY ==
--- NOTE | ~2024-12-31 | US_ITS ---
EXAMINATION: Noninvasive assessment of the bilateral lower extremities . CLINICAL INFORMATION: Status post angioplasty, left popliteal artery. TECHNIQUE: Duplex Doppler techniques with waveform analysis and measurement of velocities in the bilateral common femoral, profunda femoris, superficial femoral, popliteal and tibial arteries were performed. The study was performed only at rest. Patient refused analysis of the ankle brachial indices. COMPARISON: June 22, 2023 FINDINGS: DIRECT DUPLEX DOPPLER FINDINGS: RIGHT LEG: Common femoral artery: 163 cm/s, phasicity: Triphasic Profunda femoris artery: 142 cm/s, phasicity: Triphasic. Superficial femoral artery (proximal): 113 cm/s, phasicity: Triphasic. Superficial femoral artery (mid): 106 cm/s, phasicity: Triphasic. Superficial femoral artery (distal): 81 cm/s, phasicity: Monophasic. Popliteal artery: 96 cm/s, phasicity: Monophasic. Posterior tibial artery: 67 cm/s, phasicity: Monophasic. Peroneal artery: No color Doppler flow. Anterior tibial artery: 80 cm/s, phasicity: Monophasic. Dorsalis pedis artery: 40 cm/s, phasicity:Monophasic. LEFT LEG: Common femoral artery: 203 cm/s, phasicity: Triphasic. Profunda femoris artery: 155 cm/s, phasicity: Triphasic. Superficial femoral artery (proximal): 122 cm/s, phasicity: Monophasic. Superficial femoral artery (mid): 106 cm/s, phasicity: Monophasic. Superficial femoral artery (distal): 142 cm/s, phasicity: Monophasic. Popliteal artery: 115 cm/s, phasicity: Monophasic. Posterior tibial artery: No color Doppler flow. Peroneal artery: No color Doppler flow. Anterior tibial artery: 54 cm/s, phasicity: Monophasic. Dorsalis pedis artery: 42 cm/s, phasicity: Monophasic. Edema pattern in the soft tissues left lower extremity. US/US arterial duplex LE BI IMPRESSION: Right leg: Severe inflow disease below the knee. Concerning occluded peroneal artery. Left leg: Severe inflow disease from the proximal superficial femoral artery to dorsalis pedis. Concerning occluded posterior tibialis artery. Electronically signed by: Campos Hernandez MD 12/31/2024 03:59 PM EDT
--- OUTSIDE RECORDS SUMMARY | 2024-12-31 15:33 | XMS_ITS | Patient Health Record ---
Author Organization [facility] Re[facility] [place] Address [address] [place] [address] Care Team Providers Care Environment Artist Name Role Phone Luis Alfredo BRODY, Yareli Primary Care Provider Unava ilable Black, Lani Unavailable [phone] Allergies No Known Allergies Reason For Referral [...] Problem Acquired hammer toe of right foot (9083921165789029) Other hammer toe(s) (acquired), right foot (M20.41) Active confirmed Problem Acquired hammer toe of left foot (1192955570591802) Other hammer toe(s) (acquired), left foot (M20.42) Active confirmed Problem Ulcer of toe (922434803) Non-pressure chronic ulcer of other part of right foot limited to breakdown of skin (L97.511) Active confirmed Problem Ulcer of toe (702004164) Non-pressure chronic ulcer of other part of left foot limited to breakdown of skin (L97.521) Active confirmed Problem Chronic ulcer of foot (034317683) 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) Active confirmed Problem Nonstageable pressure ulcer of left foot (05091346851123932) 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) Active confirmed Problem Localized, primary osteoarthritis of the ankle and/or foot (810134560) Primary osteoarthritis, right ankle and foot (M19.071) Active confirmed Problem Localized, primary osteoarthritis of the ankle and/or foot (069173742) Primary osteoarthritis, left ankle and foot (M19.072) Active confirmed Problem Acquired hammer toe of left foot (0356225759583625) Other hammer toe(s) (acquired), left foot (M20.42) Active confirmed Problem Arthritis (4911891) Arthritis (M19.90) Active confirmed Problem 36352504180955 Pressure ulcer, heel, left, unstageable (L89.620) Active confirmed Problem Acquired hallux valgus (28334634) 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 confirmed Response to treatment - Improvement Problem Plantar fasciitis of right foot (82843147811339157) Plantar fasciitis of right foot (M72.2) Active confirmed Problem Interstitial myositis (10777236) 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) Active confirmed Problem 68058399 Ulcer of left heel and midfoot, limited to breakdown of skin (L97.421) Active confirmed Problem 59621504603929105 Pressure injur y of right heel, unstageable (L89.610) Active confirmed Problem Ulcer of toe of right foot (disorder) (57489230284862508) Skin ulcer of toe of right foot, limited to breakdown of skin (L97.511) Active confirmed Response to treatment Problem 870368745 Pressure ulcer, ankle, left, unstageable (L89.520) Active confirmed Problem 67126148412584097 Skin ulcer of left heel, limited to breakdown of skin (L97.421) Active confirmed Problem 959050348 Skin ulcer of right heel, limited to breakdown of skin (L97.411) Active confirmed Problem 266349096531277 Pressure injury of right foot, unstageable (L89.890) Active confirmed Problem Localized, primary osteoarthritis of the ankle and/or foot (944986901) Arthritis of joint of lesser toe, left (M19.072) Active confirmed Problem Pressure injury of left foot stage I (disorder) (739860693135011) Pressure injury of left foot, stage 1 (L89.891) Active confirmed Response to treatment,Re sponse to treatment - worse Problem Ulcer of toe of left foot (disorder) (97717615104332401) Skin ulcer of toe of left foot, limited to breakdown of skin (L97.521) Active confirmed Response to treatment Problem Pressure injury of right foot stage I (disorder) (951740293090768) Pressure injury of right foot, stage 1 (L89.891) Active confirmed Response to treatment worse Vital Signs Blood pressure diastolic 70 mm Hg 11/25/2024 Height 5 ft 3 in in 11/25/2024 Blood pressure systolic 120 mm Hg 11/25/2024 Weight 166 lbs 11/25/2024 BMI 29.4 kg/m2 11/25/2024 Procedures Procedure Date Ordered Date Performed Result Body Sit e 35664-LJGNVLV NAIL, 6 OR MORE 01/11/2024 N/A 53770-IMCMDYG NAIL, 6 OR MORE 05/06/2024 N/A 86976 I&D ABSCESS- SIMPLE,SINGLE 05/06/2024 N/A 25889- Debride <25 sq cm 05/30/2024 N/A 10125-SFBKKSQ NAIL, 6 OR MORE 08/26/2024 N/A 45476-Cogpbxdu Plate 08/26/2024 N/A 52482-LBMKWIP NAIL, 6 OR MORE 11/25/2024 N/A 80773,G9935-VTU TENDON SHEATH/LIGAMENT 11/25/2024 N/A Encounters Encounter Location Date Provider Diagnosis [facility] [place] [address] [place] [address] 01/11/2024 Lani Black Tinea unguium B35.1 ; Pain in right toe(s) M79.674 ; Pain in left toe(s) M79.675 and Acquired hallux interphalangeus of left foot M20.[address] [address] 05/06/2024 Lani Black Tinea unguium B35.1 ; Tinea pedis of both feet B35.3 ; Pain in right toe(s) M79.674 ; Pain in left toe(s) M79.675 ; Abscess of left foot L02.612 ; Pressure injury of left foot, stage 1 L89.891 and Pressure injury of right foot, stage [address] [address] 05/30/2024 Lani Black Abscess of left foot L02.612 and Skin ulcer of left heel, limited to breakdown of skin L97.[address] [address] 08/26/2024 Lani Black Tinea unguium B35.1 ; Pressure injury of right heel, unstageable L89.610 ; Pain in right toe(s) M79.674 ; Pain in left toe(s) M79.675 and Ingrown nail L60.[address] [address] 11/25/2024 Lani Black Tinea unguium B35.1 ; Bursitis of right foot M77.51 ; Pain in right toe(s) M79.674 ; Pain in left toe(s) M79.675 ; Pain in right foot M79.671 ; Plantar fasciitis of right foot M72.2 and 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 [address] 05/06/2024 Lani Black Assessments Encounter Date Diagnosis [...] X ray : Foot, right 3V 06/25/2013 40488-WKKLKOB NAIL, 6 OR MORE 06/21/2021 85711-DIJSHQT NAIL, 6 OR MORE 10/11/2021 40580-GSDXMES NAIL, 6 OR MORE 01/20/2022 99447-RGOWISQ NAIL, 6 OR MORE 04/28/2022 38693-CVEKNTK NAIL, 6 OR MORE 06/01/2020 75598-OBTKWED NAIL, 6 OR MORE 11/23/2020 84550-UOZLYVZ NAIL, 6 OR MORE 03/01/2021 64199-FTUEFSI NAIL, 6 OR MORE 05/06/2024 02429-ZYZBKBU NAIL, 6 OR MORE 08/26/2024 30765-JTAMRIF NAIL, 6 OR MORE 11/25/2024 69516-ONZXCMW NAIL, 6 OR MORE 08/25/2022 94403-OTVESQS NAIL, 6 OR MORE 12/01/2022 57480-EXBECZP NAIL, 6 OR MORE 03/13/2023 48428-KLLUPIU NAIL, 6 OR MORE 06/26/2023 79369-GZRSXQR NAIL, 6 OR MORE 10/05/2023 03962-JHWUGZK NAIL, 6 OR MORE 01/11/2024 32528-XYGMNYR NAIL, 6 OR MORE 05/12/2014 87218-GCDHCYC NAIL, 6 OR MORE 08/18/2014 70636-XNYYMDI NAIL, 6 OR MORE 12/02/2014 25570-FNHICFX NAIL, 6 OR MORE 05/06/2015 80873-IDUSKEB NAIL, 6 OR MORE 09/07/2015 65249-BLKSALW NAIL, 6 OR MORE 02/08/2016 96128-MLOUEJE NAIL, 6 OR MORE 06/09/2016 53361-YCVAWOE NAIL, 6 OR MORE 11/02/2016 08123-ABNHGPE NAIL, 6 OR MORE 03/07/2017 17913-GWXJZXQ NAIL, 6 OR MORE 05/15/2017 91805-SUVGXPT NAIL, 6 OR MORE 08/21/2017 16918-FZTANWU NAIL, 6 OR MORE 11/23/2017 35050-FMXOQMS NAIL, 6 OR MORE 02/05/2018 87664-EACWKRD NAIL, 6 OR MORE 05/07/2018 77361-OPBHRDM NAIL, 6 OR MORE 08/20/2018 47654-NOYLFFG NAIL, 6 OR MORE 06/08/2011 84341-XNQKIAS NAIL, 6 OR MORE 09/07/2011 02171-KWJEEMK NAIL, 6 OR MORE 11/16/2011 14986-DAGXLPF NAIL, 6 OR MORE 02/01/2012 58113-FDVNJKS NAIL, 6 OR MORE 04/11/2012 96832-CITTNNI NAIL, 6 OR MORE 05/07/2012 64621-PHHNPQP NAIL, 6 OR MORE 07/11/2012 67020-ZQSWCBK NAIL, 6 OR MORE 10/10/2012 65258-AEWTZTP NAIL, 6 OR MORE 12/17/2012 78278-ZXHXAYH NAIL, 6 OR MORE 04/08/2013 11736-NLLSZMV NAIL, 6 OR MORE 06/25/2013 71582-IFRKDLX NAIL, 6 OR MORE 07/29/2013 04252-FZQLKRJ NAIL, 6 OR MORE 09/24/2013 34052-QRBXMHK NAIL, 6 OR MORE 12/09/2013 70780-KJBGKXJ NAIL, 6 OR MORE 02/24/2014 79751-UJZCSHX NAIL, 6 OR MORE 11/19/2018 77850-ATLUHGC NAIL, 6 OR MORE 02/25/2019 67293-DNMIKIY NAIL, 6 OR MORE 06/03/2019 52218-RWUAXPB NAIL, 6 OR MORE 08/26/2019 93194-MVFBTBT NAIL, 6 OR MORE 03/04/2020 76080-Brhjrklj Plate 08/20/2018 94717-Ubvgchmk Plate 08/26/2024 77789-Wyenvdoi Plate 03/01/2021 28891-Ylxhmdpb Plate 06/21/2021 03468- Debride <25 sq cm 08/19/2021 80426- Debride <25 sq cm 10/11/2021 14128- Debride <25 sq cm 08/25/2022 32047- Debride <25 sq cm 06/21/2021 90050- Debride <25 sq cm 05/30/2024 19395- Debride <25 sq cm 12/14/2023 19023- Debride <25 sq cm 06/26/2023 09556- Debride <25 sq cm 03/04/2020 60341- Debride <25 sq cm 06/01/2020 78980 I&D ABSCESS- SIMPLE,SINGLE 024 , X9838-ZBPJK/INJECT, JOINT/BURSA 1 08/25/201247734,R6934-VBU TENDON SHEATH/LIGAMENT 0 11/25/2024 Next Appt Details Provider Name:Lani Ricketts , 03/03/2025 02:30:00 PM, [address] [place], [address], Insurance Providers Payer Name Payer Address Payer Phone Subscriber Number Group Number Insured Name Patient Relationship to Insured Coverage Start Date Coverage End Date Medicare National Govt [facility] [address] [place] [address] [id number] Lainey Floyd Self - patient is the insured 7 [employer] [address] [place] [address] [id number] Lainey Floyd Self - patient is the insured Medical (General) History Medical History History ICD Code chicken pox asthma Surgical History Surgery Date(Month/Year) appendectomy 1957 carpal tunnel release 04/10/2017 Left Knee replacement 02/02 carpal tunnel surgery 01/04 Hospitalization History Reason Date(Month/Year)
--- OUTSIDE RECORDS SUMMARY | 2024-12-31 15:33 | XMS_ITS ---
Author Organization [facility] [place] Address [address] [place] [address] Care Team Providers Care Manager Utilization Management Name Role Phone Luis Alfredo BRODY, Yareli Primary Care Provider Unava ilable Black, Lani Unavailable [phone] Allergies No Known Allergies REASON FOR VISIT [...] Ordered Date Performed Result Body Sit e 95206- Debride <25 sq cm 05/30/2024 N/A Encounters Encounter Location Date Provider Diagnosis [facility] [place] [address] [place] [address] 05/30/2024 Lani Black Abscess of left foot [...] Treatment Pending Test Test Name Order Date 50676- Debride <25 sq cm 05/30/2024 Next Appt Details Follow Up: 3-4w, Reason: Provider Name:Lani Ricketts , 03/03/2025 02:30:00 PM, [address] [place], [address], Procedure Notes * Category Sub-Category Detail Notes [...] of the wound post debridement is stable (65726) Progress Notes * Lainey MORRELL RDOB:[birth year] (84 yo F)Acc No.[id number]:05/30/2024 Progress Notes Patient:?Everett Lainey R Provider:?Lani FILIBERTO Ricketts :1940???Age:84 Y???Sex:Female D ate:05/30/2024 Address:[address] [place], [place] [address] Pcp:Yareli Lobato NP Subjective: * Chief Complaints: [...] walking. ?Marital status: . 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 * Medications:?TakingLosartan Potassium 100 MG Tablet 1 [...] (2)??SIZE, (A)5mm X 4mm X 2mm,(B) 10mm F5osM9aj BASE, granular, RIM, hyperkeratotic, UNDERMINING, absent, TRACKING, [...] of the wound post debridement is stable (58671).? * Procedure Codes:?09694 ACTIV E WOUND CARE/20 CM OR <, [...] Ricketts DPM Date:?2023 Generated for Violet desai/Sylvester/eTransmitting on:?12/31/2024 03:33 PM EDT History and Physical Notes * HPI (History of Present Illness) Category Sub-Category Detail Notes Category Not es Skin problems Treatments: none Possible Infection Course: improved Treatments: medication ( clindam ycin ),woundcare Examination Category Sub-Category Detail Notes Category Not es Dermatologic SKIN FINDINGS: Resolved , local ized cellulitis without lymphangitis ULCER: LOCATION, left heel (2) SIZE, (A)5mm X 4mm X 2mm,(B) 10mm J4yvQ7rm BASE, granular, RIM, hyperkeratotic, UNDERMINING, absent, TRACKING, [...]
--- OUTSIDE RECORDS SUMMARY | 2024-12-31 15:33 | XMS_ITS ---
Author Organization [facility] Address [address] [place] [address] Care Team Providers Care Digital Color Press Operator Name Role Phone Luis Alfredo BRODY, Yareli Primary Care Provider Unava ilable Black, Lani Unavailable [phone] Allergies No Known Allergies REASON FOR VISIT [...] Problem Status W/U Status Risk Notes Problem 89939832418340525 Pressure injur y of right heel, unstageable (L89.610) Active confirmed Vital Signs Height 5 ft 3 in in 08/26/2024 Weight 166 lbs 08/26/2024 BMI 29.4 kg/m2 08/26/2024 Blood pressure systolic 120 mm Hg 08/26/19 25 Blood pressure diastolic 68 mm Hg 025 Procedures Procedure Date Ordered Date Performed Result Body Sit e 52036-AKFWFJW NAIL, 6 OR MORE 08/26/2024 N/A 33661-Acnvfqxw Plate 08/26/2024 N/A Encounters Encounter Location Date Provider Diagnosis [facility] [place] [address] [place] [address] 08/26/2024 Lani Ricketts Tinea unguium B35.1 ; [...] Treatment Pending Test Test Name Order Date 27388-VDYCINW NAIL, 6 OR MORE 08/26/2024 19598-Hutogllq Plate 08/26/2024 Next Appt Details Follow Up: prn, Reason: Provider Name:aLni Ricketts , 03/03/2025 02:30:00 PM, [address] [place] [address], [address], Procedure Notes * Category Sub-Category Detail Notes [...] Motrin was recommended for pain or discomfort (33968), Pt DEFERS matricectomy Anesthesia , was accomplished [...] use of a nail nipper and/or dremel-type carbon grinder, to a more viable healthy nail [...] to maintain effectiveness in symptomatic relief - 25840 Patient chooses debridement treatmen t only; no pharmaceutical tx Progress Notes * Lainey MORRELL RDOB:[birth year] (84 yo F)Acc No.[id number]:08/26/2024 Progress Note Patient:?EVERETT Lainey R Provider:?Lani Ricketts DPM :1940???Age:84 Y???Sex:Female D ate:08/26/2024 Address:[address] [place] [address] Pcp:Yareli Lobato NP Subjective: * Chief Complaints: [...] - L60.0??? Plan: * Treatment: 2.?Ingrown nail?Procedure: 56178-Cwysbdnt Plate * Procedures:?Debride Nail 6-10:?Nail debridement?Due to [...] use of a nail nipper and/or dremel-type carbon grinder, to a more viable healthy nail [...] to maintain effectiveness in symptomatic relief - 72272.?Patient chooses ?debridement treatment only; no pharmaceutical tx.?Nail [...] Motrin was recommended for pain or discomfort (37232), Pt DEFERS matricectomy.? * Procedure Codes:?74754 Avuls ion Plate, [place]: [place] [address] DEBRIDE NAIL, 6 OR MORE, Modifiers: XS [...] activities and work, and to prevent further disability.[facility] goals: Our plan is for the patient [...] Ricketts DPM Date:?2024 Generated for Violet desai/Sylvester/Dyllan on:?12/31/2024 03:32 PM EDT History and Physical Notes * [...]
--- OUTSIDE RECORDS SUMMARY | 2024-12-31 15:33 | XMS_ITS ---
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) Active confirmed Vital Signs Height 5 ft 3 in in 11/25/2024 Weight 166 lbs 11/25/2024 BMI 29.4 kg/m2 11/25/2024 Blood pressure systolic 120 mm Hg 11/26/19 25 Blood pressure diastolic 70 mm Hg 025 Procedures Procedure Date Ordered Date Performed Result Body Sit e 22942-YMPQQLC NAIL, 6 OR MORE 11/25/2024 N/A 95825,C2744-NWX TENDON SHEATH/LIGAMENT 11/25/2024 N/A Encounters Encounter Location Date Provider Diagnosis [facility] [place] [address] [place] [address] 11/25/2024 Lani Black Tinea unguium B35.1 ; [...] (INJECTIONTHERAPY.pdf) Pending Test Test Name Order Date 31286-KHDLZEH NAIL, 6 OR MORE 11/25/2024 35501,A9133-ZUS TENDON SHEATH/LIGAMENT 0 11/25/2024 Next Appt Details Follow Up: 2 Months, Reason: Provider Name:Lani Ricketts , 03/03/2025 02:30:00 PM, [address] [place] [address], [address], Procedure Notes * Category Sub-Category Detail [...] use of a nail nipper and/or dremel-type grinder set up operator gear tool, to a more viable healthy nail plate [...] Lainey MORRELL RDOB:[birth year] (84 yo F)Acc No.[id number]:11/25/2024 Progress Note Patient:?Lainey MORRELL R Provider:?Lani Ricketts DPM :1940???Age:84 Y???Sex:Female D ate:11/25/2024 Address:[address] [place], [place] [address] Pcp:Yareli Lobato NP Subjective: * Chief Complaints: [...] walking. ?Marital status: . 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 * Medications:?TakingAlbuterol , Notes to Pharmacist: PRNAmpicillin [...] at rest, 30 days, 1, Refills 0.?Procedure: 05448,N1775-AST TENDON SHEATH/LIGAMENT Notes: Patient Educated with: HEEL [...] use of a nail nipper and/or dremel-type grinder set up operator gear tool, to a more viable healthy nail plate [...] to maintain effectiveness in symptomatic relief - 76437.?Patient chooses ?debridement treatment only; no pharmaceutical tx.? * Procedure Codes:?94016 DEBRI DE NAIL, 6 OR MORE, Modifiers: XS 71856 INJ TENDON SHEATH/LIGAMENT, Modifiers: XS J0702 INJ [...] DPM Date:?2024 Generated for Violet desai/Sylvester/Dyllan on:?12/31/2024 03:33 PM EDT History and Physical [...]
== END 2024-12-31 14:11 | disposition home or self-care (01) ==
LOC: HO.US 14:10
PROVIDERS: PCP Nurse Practitioner Adult Health; Visit Provider Surgery Vascular Surgery
DX: I73.9 Peripheral vascular disease, unspecified (principal)
CPT/HCPCS: 93925

== ENCOUNTER → 2024-12-31 14:14 | Outpatient (BNV) | payer MEDICARE, SELFPAY | PROVIDERS: PCP Nurse Practitioner Adult Health; Visit Provider Radiology Diagnostic Radiology | DX: I73.9 Peripheral vascular disease, unspecified (principal) | CPT/HCPCS: 93925 ==

== ENCOUNTER 2025-01-07 10:48 | Outpatient (AMB) | payer MEDICARE, SELFPAY ==
[2025-01-07 10:52] VITALS: BMI 32.1
--- NOTE | 2025-01-07 10:52 | A.OFFVIS_ITS ---
Vital Signs 01/07/25 10:52 Height 5 ft 3 in Weight 181 lb BMI 32.1 Intake Visit Reasons: overdue 1y follow up s/p Arterial US 12/31/24 Intake Note: follow up ARterial US 12/31/24 w/ hx of Left popliteal plasty 09/09/20. Pt states bilateral LE swelling w/ discoloration. States its started about a month ago on [place]. [employer] Analyst Required: No Accompanied by: Self / Same As Patient Allergies atorvastatin Adverse Reaction (Severe, Verified 01/07/25 10:55) muscle aches simvastatin Adverse Reaction (Severe, Verified 01/07/25 10:55) Muscles Aches HPI HPI overdue 1y follow up s/p Arterial US 12/31/24: Details: Very complex 84-year-old female presents for evaluation regarding her lower extremities. She had a prior endovascular intervention back in August of 2020. She has had significant edema of the lower extremities. She reports that she dates it back to around [facility] tack it at that time she began using gabapentin as well. She now presents for routine arterial follow-up and evaluation of her lower extremities. Patient denies any previous venous surgery or injections. Patient denies any history of DVT/ PE. Patient denies any history of phlebitis. Trial of compression includes - unable to tolerate compression They now present for vascular evaluation regarding their varicose veins. [facility] Medical History Rash Bronchiectasis Pseudomonal pneumonia Abnormal chest x-ray Statin intolerance Essential hypertension Atherosclerotic cardiovascular disease PAF (paroxysmal atrial fibrillation) Non-rheumatic aortic stenosis Murmur, heart GERD (gastroesophageal reflux disease) Cough Asthma-COPD overlap syndrome Bronchitis Surgical History History of left knee replacement History of carpal tunnel release Family History Mother Breast cancer Father Heart attack Other Allergies Social History Alcohol intake: former Comment: stiffness Patient Tobacco Use Status: Never used Tobacco Review of Systems Const All systems reviewed & are unremarkable except as noted in HPI and below Reports no additional complaints ENT Reports Normal hearing present Card Denies chest pain, Denies chest pain at rest, Denies chest pain with activity and Denies pedal edema Resp Denies cough GI Denies abdominal pain Musc Denies abnormal gait, Denies muscle cramps and Denies radiating pain into limb Skin/Breast Denies skin ulcer and Denies wounds Neuro Reports Normal hearing present and Denies abnormal gait Psych Reports no additional complaints Physical Exam Vital Signs: BMI result Body Mass Index 32.1 Const General: cooperative, healthy appearing and comfortable Orientation/consciousness: oriented to person, oriented to place and oriented to time HEENT Head: Yes normal to inspection Neck Neck: Yes normal visual inspection Carotids: no bruits Chest Chest palpation & inspection: normal inspection of the chest Resp Effort & Inspection: normal respiratory effort and able to speak in complete sentences Auscultation: clear to auscultation bilaterally, no crackles, no rales, no rhonchi and no wheezes Cardio Other: Bilateral DP signals Rate: regular rate Rhythm: regular rhythm Heart sounds: S1 normal heart sound present and S2 normal heart sound present Bruits: no carotid bruits GI Inspection: Yes normal to inspection Skin Wounds: no wounds Hair: normal Neuro General: oriented to person, oriented to place and oriented to time Cranial nerves: Yes CN's II-XII intact bilaterally and Yes Normal hearing present Cognition (Neuro): normal cognition Motor exam (neuro): 5/5 motor strength present throughout Extrem Other: venous exam: +2 edema right greater than left General: No clubbing, No cyanosis and Yes edema Psych Appearance: grossly normal Mental Status: mental status grossly normal Speech and movement: Normal speech and movement present Results Reviewed Results Reviewed: Noninvasive testing dated 12/31/2024 demonstrates bilateral lower extremity disease below-knee. Where it has monophasic. We were unable to get ABIs. Assessment & Plan Assessment & Plan (1) Varicose veins of right lower extremity with inflammation: Code(s): I83.11 - Varicose veins of right lower extremity with inflammation Category: Medical Plan: In short patient has significant lower extremity swelling. This may be multifactorial in nature. She does have asthma COPD overlap syndrome along with coronary artery disease. I have taken the liberty of ordering venous insufficiency testing to rule that out. She will follow up with us after testing. Thank you for allowing us to assist in her care. (2) PAD (peripheral artery disease): Comment: 09/09/2020 - left popliteal plasty. Code(s): I73.9 - Peripheral vascular disease, unspecified Category: Medical Plan: She does have stable arterial disease. At the current time I think her venous status is more of concern as she does have a significant amount of edema. She will be scheduled for annual arterial surveillance as well. Thank you for allowing us to assist in her care. Orders: Orders US venous duplex LE BI 1 Week I83.11 - Varicose veins of right lower extremity with inflammation US arterial duplex LE BI 1 Year I73.9 - Peripheral vascular disease, unspecified Coding Level of Care Code Est Pt Level 4 (01486) Diagnoses Varicose veins of right lower extremity with inflammation I83.11 PAD (peripheral artery disease) I73.9
--- OUTSIDE RECORDS SUMMARY | 2025-01-07 11:38 | XMS_ITS | Patient Health Record ---
Author Organization [facility] [address] Address [address] [place] [address] Care Team Providers Care Highway Engineering Teacher Name Role Phone Luis Alfredo BRODY, Yareli Primary Care Provider Unava ilable Black, Lani Unavailable [phone] Allergies No Known Allergies Reason For Referral [...] Problem Acquired hammer toe of right foot (0636690744969350) Other hammer toe(s) (acquired), right foot (M20.41) Active confirmed Problem Acquired hammer toe of left foot (1542596463457036) Other hammer toe(s) (acquired), left foot (M20.42) Active confirmed Problem Ulcer of toe (706551807) Non-pressure chronic ulcer of other part of right foot limited to breakdown of skin (L97.511) Active confirmed Problem Ulcer of toe (023187131) Non-pressure chronic ulcer of other part of left foot limited to breakdown of skin (L97.521) Active confirmed Problem Chronic ulcer of foot (725203121) 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) Active confirmed Problem Nonstageable pressure ulcer of left foot (85012651637210836) 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) Active confirmed Problem Localized, primary osteoarthritis of the ankle and/or foot (188731398) Primary osteoarthritis, right ankle and foot (M19.071) Active confirmed Problem Localized, primary osteoarthritis of the ankle and/or foot (375210795) Primary osteoarthritis, left ankle and foot (M19.072) Active confirmed Problem Acquired hammer toe of left foot (6543702694024519) Other hammer toe(s) (acquired), left foot (M20.42) Active confirmed Problem Arthritis (6745011) Arthritis (M19.90) Active confirmed Problem 96910512941335 Pressure ulcer, heel, left, unstageable (L89.620) Active confirmed Problem Acquired hallux valgus (41066676) 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 confirmed Response to treatment - Improvement Problem Plantar fasciitis of right foot (59617346529194801) Plantar fasciitis of right foot (M72.2) Active confirmed Problem Interstitial myositis (85228178) 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) Active confirmed Problem 86162791 Ulcer of left heel and midfoot, limited to breakdown of skin (L97.421) Active confirmed Problem 63073554525743604 Pressure injur y of right heel, unstageable (L89.610) Active confirmed Problem Ulcer of toe of right foot (disorder) (67074230978327752) Skin ulcer of toe of right foot, limited to breakdown of skin (L97.511) Active confirmed Response to treatment Problem 018694234 Pressure ulcer, ankle, left, unstageable (L89.520) Active confirmed Problem 54122420553873799 Skin ulcer of left heel, limited to breakdown of skin (L97.421) Active confirmed Problem 771822588 Skin ulcer of right heel, limited to breakdown of skin (L97.411) Active confirmed Problem 102596788802195 Pressure injury of right foot, unstageable (L89.890) Active confirmed Problem Localized, primary osteoarthritis of the ankle and/or foot (162597054) Arthritis of joint of lesser toe, left (M19.072) Active confirmed Problem Pressure injury of left foot stage I (disorder) (446668882776271) Pressure injury of left foot, stage 1 (L89.891) Active confirmed Response to treatment,Re sponse to treatment - worse Problem Ulcer of toe of left foot (disorder) (87945145450531672) Skin ulcer of toe of left foot, limited to breakdown of skin (L97.521) Active confirmed Response to treatment Problem Pressure injury of right foot stage I (disorder) (648555384879400) Pressure injury of right foot, stage 1 (L89.891) Active confirmed Response to treatment worse Vital Signs Blood pressure diastolic 70 mm Hg 11/25/2024 Height 5 ft 3 in in 11/25/2024 Blood pressure systolic 120 mm Hg 11/25/2024 Weight 166 lbs 11/25/2024 BMI 29.4 kg/m2 11/25/2024 Procedures Procedure Date Ordered Date Performed Result Body Sit e 70179-SKGRSLL NAIL, 6 OR MORE 01/11/2024 N/A 18901-MYMAOWQ NAIL, 6 OR MORE 05/06/2024 N/A 01670 I&D ABSCESS- SIMPLE,SINGLE 05/06/2024 N/A 78068- Debride <25 sq cm 05/30/2024 N/A 41937-FKKSHEI NAIL, 6 OR MORE 08/26/2024 N/A 25871-Buonehxc Plate 08/26/2024 N/A 83631-SIWQUYS NAIL, 6 OR MORE 11/25/2024 N/A 67039,O2819-URG TENDON SHEATH/LIGAMENT 11/25/2024 N/A Encounters Encounter Location Date Provider Diagnosis [facility] [place] [address] [place] [address] 01/11/2024 Lani Black Tinea unguium B35.1 ; Pain in right toe(s) M79.674 ; Pain in left toe(s) M79.675 and Acquired hallux interphalangeus of left foot M20.[address] [address] 05/06/2024 Lani Black Tinea unguium B35.1 ; Tinea pedis of both feet B35.3 ; Pain in right toe(s) M79.674 ; Pain in left toe(s) M79.675 ; Abscess of left foot L02.612 ; Pressure injury of left foot, stage 1 L89.891 and Pressure injury of right foot, stage [address] [address] 05/30/2024 Lani Black Abscess of left foot L02.612 and Skin ulcer of left heel, limited to breakdown of skin L97.[address] [address] 08/26/2024 Lani Black Tinea unguium B35.1 ; Pressure injury of right heel, unstageable L89.610 ; Pain in right toe(s) M79.674 ; Pain in left toe(s) M79.675 and Ingrown nail L60.[address] [address] 11/25/2024 Lani Black Tinea unguium B35.1 ; Bursitis of right foot M77.51 ; Pain in right toe(s) M79.674 ; Pain in left toe(s) M79.675 ; Pain in right foot M79.671 ; Plantar fasciitis of right foot M72.2 and 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 [address] 05/06/2024 Lani Black Assessments Encounter Date Diagnosis (ICD Code) Assessment Notes Treatment Notes Treatment Clinical Notes Section Notes 01/11/2024 Tinea unguium (ICD-10 - B35.1) 01/11/2024 Pain in right toe(s) (ICD-10 - M79.674) 05/06/2024 Tinea unguium (ICD-10 - B35.1) 05/30/2024 Abscess of left foot (ICD-10 - L02.612) 05/30/2024 Skin ulcer of left heel, limited to breakdown of skin (ICD-10 - L97.421) 08/26/2024 Tinea unguium (ICD-10 - B35.1) 05/06/2024 Tinea pedis of both feet (ICD-10 - B35.3) 08/26/2024 Pressure injury of right heel, unstageable [...] M20.12) Response to treatment - Improvement 05/06/2024 Pain in left toe(s) (ICD-10 - M79.675) 08/26/2024 Pain in left toe(s) (ICD-10 - M79.675) 11/25/2024 Pain in left toe(s) (ICD-10 - M79.675) 11/25/2024 Pain in right foot (ICD-10 - M79.671) 08/26/2024 Ingrown nail (ICD-10 - L60.0) 05/06/2024 Abscess of left foot (ICD-10 - L02.612) Patient Educated with: WOUND CARE INSTRUCTIONS. pdf (WOUND CARE INSTRUCTIONS. pdf) 05/06/2024 Pressure injury of left foot, stage 1 (ICD-10 - L89.891) Response to treatment,Respo nse to treatment - worse Patient Educated with: WOUND CARE INSTRUCTIONS. pdf (WOUND CARE INSTRUCTIONS. pdf) 11/25/2024 Plantar fasciitis of right foot (ICD-10 - M72.2) Patient Educated with: HEEL CORD STRETCHES.pdf (HEEL CORD STRETCHES.pdf ) Patient Educated with: RICE THERAPY.pdf (RICE THERAPY.pdf) Patient Educated with: HEEL CORD STRETCHES.pdf (HEEL CORD STRETCHES.pdf ) Patient Educated with: INJECTIONTHER APY.pdf (INJECTIONTHE RAPY.pdf) 11/25/2024 Interstitial myositis of right foot (ICD-10 - M60.171) 05/06/2024 Pressure injury of right foot, stage 1 (ICD-10 - L89.891) Response to treatment worse 05/06/2024 Other 05/30/2024 Other 08/26/2024 Other Plan Of Treatment Pending Test Test Name Order Date X ray : Ankle, left 2V 11/23/2020 *Wound Culture 05/06/2024 *Liver Function Test (LFT) 02/24/2014 X ray : Foot, left 3V 06/25/2013 X ray : Foot, right 3V 06/25/2013 47494-BHEYMSB NAIL, 6 OR MORE 12/09/2013 85726-UJEBPEK NAIL, 6 OR MORE 09/24/2013 05721-HCWQXOV NAIL, 6 OR MORE 07/29/2013 35792-SALSWLI NAIL, 6 OR MORE 06/25/2013 61608-MPYGLFN NAIL, 6 OR MORE 04/08/2013 11235-FCIXECH NAIL, 6 OR MORE 12/17/2012 66500-OWMRDBJ NAIL, 6 OR MORE 02/01/2012 47056-LYNRHWZ NAIL, 6 OR MORE 09/07/2011 20383-DLUKUOM NAIL, 6 OR MORE 05/06/2024 08990-ORNSUYG NAIL, 6 OR MORE 06/26/2023 46434-ODZNOMX NAIL, 6 OR MORE 10/05/2023 25613-WHZIFPX NAIL, 6 OR MORE 01/11/2024 38044-UQEWCXB NAIL, 6 OR MORE 08/26/2024 92969-EVPWSQS NAIL, 6 OR MORE 11/25/2024 28090-KZAOMNN NAIL, 6 OR MORE 11/19/2018 71176-BNDYMMD NAIL, 6 OR MORE 08/20/2018 01392-UDSZJEK NAIL, 6 OR MORE 11/23/2017 85332-UUDVWWI NAIL, 6 OR MORE 09/07/2015 03568-SECODTZ NAIL, 6 OR MORE 05/06/2015 84343-DCFTZIL NAIL, 6 OR MORE 12/02/2014 46627-UTOTFGT NAIL, 6 OR MORE 08/18/2014 29003-OGXHHWR NAIL, 6 OR MORE 02/24/2014 97554-PPBUPNZ NAIL, 6 OR MORE 06/01/2020 26436-WQJNJIZ NAIL, 6 OR MORE 11/23/2020 86447-YFTRWOV NAIL, 6 OR MORE 03/01/2021 07269-NDQYZNX NAIL, 6 OR MORE 06/21/2021 81159-MUTSZOH NAIL, 6 OR MORE 10/11/2021 51617-AASFUXS NAIL, 6 OR MORE 01/20/2022 51328-IZKTWWG NAIL, 6 OR MORE 04/28/2022 49830-VWQTKHK NAIL, 6 OR MORE 08/25/2022 92587-NNNVJJO NAIL, 6 OR MORE 12/01/2022 06398-UBVBTAK NAIL, 6 OR MORE 03/13/2023 34738-VCUQMIG NAIL, 6 OR MORE 06/08/2011 63463-UWBGIVH NAIL, 6 OR MORE 11/16/2011 40823-TMEWGRW NAIL, 6 OR MORE 04/11/2012 51875-IHTQOWF NAIL, 6 OR MORE 05/07/2012 91329-SOEXBYJ NAIL, 6 OR MORE 07/11/2012 84563-PDLSFQP NAIL, 6 OR MORE 10/10/2012 20373-RKHGMOH NAIL, 6 OR MORE 05/12/2014 22377-RYTTEVM NAIL, 6 OR MORE 02/08/2016 31101-ZJWFYNH NAIL, 6 OR MORE 06/09/2016 90150-XQRJGOX NAIL, 6 OR MORE 11/02/2016 84802-VYPPLYZ NAIL, 6 OR MORE 03/07/2017 13014-PMJGJWC NAIL, 6 OR MORE 05/15/2017 13287-MPESUQI NAIL, 6 OR MORE 08/21/2017 49678-RMLBYHP NAIL, 6 OR MORE 02/05/2018 12429-ZBUYVFX NAIL, 6 OR MORE 05/07/2018 80756-HLMFBPQ NAIL, 6 OR MORE 02/25/2019 09791-SMOGBIP NAIL, 6 OR MORE 06/03/2019 81902-SZEAQNG NAIL, 6 OR MORE 08/26/2019 96577-ECBCLKR NAIL, 6 OR MORE 03/04/2020 38682-Rhloaaff Plate 03/01/2021 19960-Vvuqlqok Plate 08/20/2018 23700-Fkjoynag Plate 06/21/2021 78703-Zcpkvkzf Plate 08/26/2024 08495- Debride <25 sq cm 05/30/2024 50916- Debride <25 sq cm 12/14/2023 63778- Debride <25 sq cm 08/19/2021 60409- Debride <25 sq cm 10/11/2021 92815- Debride <25 sq cm 06/21/2021 43521- Debride <25 sq cm 06/26/2023 07968- Debride <25 sq cm 08/25/2022 20689- Debride <25 sq cm 03/04/2020 00998- Debride <25 sq cm 06/01/2020 23889 I&D ABSCESS- SIMPLE,SINGLE 024 , K6524-PZCEP/INJECT, JOINT/BURSA 1 08/25/201204832,N9902-RYZ TENDON SHEATH/LIGAMENT 0 11/25/2024 Next Appt Details Provider Name:Lani Ricketts , 03/03/2025 02:30:00 PM, [address] [place], [address], Insurance Providers Payer Name Payer Address Payer Phone Subscriber Number Group Number Insured Name Patient Relationship to Insured Coverage Start Date Coverage End Date Medicare National Govt [facility] [address] [facility] [place] [address] [id number] Lainey Floyd Self - patient is the insured 7 [employer] [address] [place] [address] [id number] Lainey Floyd Self - patient is the insured Medical (General) History Medical History History ICD Code chicken pox asthma Surgical History Surgery Date(Month/Year) appendectomy 1957 carpal tunnel release 04/10/2017 Left Knee replacement 02/02 carpal tunnel surgery 01/04 Hospitalization History Reason Date(Month/Year)
== END 2025-01-07 11:20 | disposition home or self-care (01) ==
LOC: HO.HVS 10:49
PROVIDERS: PCP Nurse Practitioner Family; Visit Provider Surgery Vascular Surgery
DX: I83.11 Varicose veins of right lower extremity with inflammation (principal); I73.9 Peripheral vascular disease, unspecified
CPT/HCPCS: 99214

== ENCOUNTER → 2025-01-07 10:48 | Outpatient (BNVA) | payer MEDICARE, SELFPAY | PROVIDERS: PCP Nurse Practitioner Family; Visit Provider Surgery Vascular Surgery | DX: I83.11 Varicose veins of right lower extremity with inflammation (principal); I73.9 Peripheral vascular disease, unspecified | CPT/HCPCS: 99212 ==

== ENCOUNTER 2025-03-04 10:29 | Outpatient (AMB) | payer MEDICARE, SELFPAY ==
--- NOTE | 2025-03-04 10:32 | A.OFFVIS_ITS ---
Vital Signs 03/04/25 10:33 Height 5 ft Weight 165 lb 5.547 oz BMI 32.3 BP 118/60 Blood Pressure Location Lt brachial Position Sitting Pulse 66 Pulse Source Monitor Intake Visit Reasons: 6m follow up Allergies atorvastatin Adverse Reaction (Severe, Verified 01/07/25 10:55) muscle aches simvastatin Adverse Reaction (Severe, Verified 01/07/25 10:55) Muscles Aches Medication List - Last Reconciled 03/04/25 by Chandler Cisneros MD albuterol sulfate 90 mcg/actuation 2 inhalations inhalation Q6H PRN 30 days azelastine 2 sprays intranasal BID cholecalciferol (vitamin D3) 25 mcg PO DAILY coenzyme Q10 (Ultra CoQ10) 75 mg PO DAILY doxycycline monohydrate 100 mg PO BID 28 days flecainide 50 mg PO BID fluticasone propion-salmeterol 250-50 mcg/dose (Advair Diskus) 1 ea inhalation BID 90 days levalbuterol HCl 1.25 mg (3 mL) inhalation BID 30 days metoprolol succinate ER (Toprol XL) 25 mg PO DAILY nebulizers As directed rivaroxaban (Xarelto) 20 mg PO DAILY rosuvastatin 10 mg PO BEDTIME sodium chloride 7% 4 mL inhalation BID 30 days sodium chloride 3% 4 mL inhalation BID 30 days valsartan 160 mg PO DAILY HPI Comments Details: Lainey returns for follow-up regarding atrial fibrillation, aortic stenosis, coronary artery disease. From the cardiac standpoint, she does not have any clear-cut symptoms like angina. She gets intermittent wheezing and still has the same. She also developed some leg swelling and she strongly believes it is because of Gabapentin, as apparently it started after starting the medication; once she stopped the medication, the swelling went away. [facility] Medical History Rash Bronchiectasis Pseudomonal pneumonia Abnormal chest x-ray Statin intolerance Essential hypertension Atherosclerotic cardiovascular disease PAF (paroxysmal atrial fibrillation) Non-rheumatic aortic stenosis Murmur, heart GERD (gastroesophageal reflux disease) Cough Asthma-COPD overlap syndrome Bronchitis Surgical History History of left knee replacement History of carpal tunnel release Family History Mother Breast cancer Father Heart attack Other Allergies Social History Alcohol intake: former Comment: stiffness Patient Tobacco Use Status: Never used Tobacco Review of Systems Const Denies weakness ENT Denies dizziness Card Denies chest pain, Denies chest pain with activity, Denies syncope, Denies rapid heart rate, Denies pedal edema, Denies edema, Denies leg edema, Denies lightheadedness, Denies palpitations, Denies dyspnea, Denies dyspnea on exertion and Denies orthopnea Resp Denies cough, Denies dyspnea and Denies dyspnea on exertion GI Denies hematochezia and Denies change in stool character Musc Denies abnormal gait, Denies muscle cramps, Denies muscle weakness, Denies numbness, Denies radiating pain into limb and Denies tingling Neuro Denies abnormal gait, Denies dizziness, Denies syncope, Denies numbness, Denies tingling and Denies weakness Endo Denies palpitations Physical Exam Vital Signs: Last Vital Signs Pulse 66 03/04/25 10:33 BP 118/60 03/04/25 10:33 BMI result Body Mass Index 32.3 Const General: comfortable and no acute distress Orientation/consciousness: patient oriented x3 HEENT Other: Unremarkable Head: Yes normal to inspection Neck Neck: Yes normal visual inspection Chest Chest palpation & inspection: normal inspection of the chest Resp Auscultation: wheezes Cardio Palpation: normal PMI Heart sounds: S1 normal heart sound present, S2 normal heart sound present, no gallops, Murmur heart sound present systolic II/ and at the right sternal border and no rubs GI Palpation (GI): Soft to palpation Back/Spine/Pelvis Other: unremarkable Skin Other: Bruising related to anticoagulation and skin fragility. General skin exam: no rashes or lesions noted Neuro General: patient oriented x3 Extrem Other: Chronic changes Psych Mental Status: mental status grossly normal Office Procedures EKG Details: EKG with underlying sinus rhythm at 66/Min; no ischemic findings; [place]. [address]-Eczbfmdtsczacpawm, Complete Assessment & Plan Assessment & Plan (1) Non-rheumatic aortic stenosis: Code(s): I35.0 - Nonrheumatic aortic (valve) stenosis Category: Medical Plan: In the last echocardiogram, moderately calcified aortic valve with mild stenosis. Preserved LVEF at 63%. We will recheck before next visit. (2) PAF (paroxysmal atrial fibrillation): Code(s): I48.0 - Paroxysmal atrial fibrillation Category: Medical Plan: Continue current regimen including flecainide/metoprolol. She has been stable within this. Continue anticoagulation. (3) Atherosclerotic cardiovascular disease: Code(s): I25.10 - Atherosclerotic heart disease of [place] coronary artery without angina pectoris Category: Medical Plan: Coronary CTA in the past - mild nonobstructive disease in the left main and moderate disease in the proximal circumflex. Clinically, does not have any angina or ischemic sounding symptoms. She is not suitable for a stress test as she is walking with a cane and cannot do pharmacological with Lexiscan either due to wheezing. Will need to follow clinically. Continue statins. Last available LDL 86 mg/dl. Previously, as much as 157 mg/dL. (4) Essential hypertension: Code(s): I10 - Essential (primary) hypertension Category: Medical Plan: Stable. On valsartan. She has been on Amlodipine as well as Lisinopril in the past but not taking anymore due to intolerance. (5) Statin intolerance: Code(s): Z78.9 - Other specified health status Category: Medical Plan: Musculoskeletal symptoms more likely from arthritic issues than statin tolerance. On a small dose of statin. No changes. Plan Discussion Notes I reassured her about her current medication regimen, including flecainide, metoprolol, Xarelto, and statins, and confirmed her blood pressure is stable. We also discussed the plan to perform an echocardiogram to evaluate for aortic stenosis in the future. Patient was informed and verbally consented to the use of an ambient scribe for clinic note documentation during this visit. Orders: Orders CA echo transthoracic complete 6 Months I35.0 - Nonrheumatic aortic (valve) stenosis Coding Level of Care Code Est Pt Level 4 (19710) Complex EM visit Add On G2211 Diagnoses Non-rheumatic aortic stenosis I35.0 PAF (paroxysmal atrial fibrillation) I48.0 Atherosclerotic cardiovascular disease I25.10 Essential hypertension I10 Statin intolerance Z78.9 CPT Codes EKG - CPT: 30053-Yxuadoliwbfgtfplx, Complete ([id number])
[2025-03-04 10:33] VITALS: BP 118/60; PULSE 66; BMI 32.3
--- OUTSIDE RECORDS SUMMARY | 2025-03-04 11:39 | XMS_ITS | Encounter Summary ---
Author Organization [facility] Address [address] [place] [id number] Phone Care Team Providers Care Flavor Tank Tender Name Role Phone Yareli Lobato [employer] MANAGER Primary Care Provider + Reason for Referral * Physical Therapy (Routine) - Closed Specialty Diagnoses / Procedures Referred By Stu quijano Referred To Contact Physical Therapy Diagnoses Encounter for rehabilitation System, Provider Not In, [facility] [id number] [place] [address] Phone: tel: Referral ID Status Reason Start Date Expiration Date Visits Re quested Visits Authorized [id number] Closed 10/30/2018 08/13/2019 99 [phone] Encounter Details Date Type Department Care Team (Latest Contact Info) Description 10/11/2018 Transcribe Orders [facility] [address] [place] [id number] Yareli Lobato, REGIONAL PRODUCTION MANAGER [address] [place] [address] Encounter for rehabilitation (Primary Dx) Social History Tobacco Use Types Packs/Day Years Used Date Smoking Tobacco: Never Assessed Comments Unknown Sex and Gender Information Value Date Recorded Sex Assigned at Not on file Legal Sex Female 10:11 PM EDT Gender Identity Not on file Sexual Orientation Not on file documented as of this encounter Plan of Treatment Scheduled Referrals Name Type Priority Associated Diagnoses Orde r Schedule Ambulatory referral to [facility] Physical Therapy Outpatient Referral Routine Encounter for rehabilitation Ordered: 10/11/2018 documented as of this encounter Visit Diagnoses Diagnosis Encounter for rehabilitation- Primary documented in this encounter Care Teams Flavor Tank Tender Relationship Specialty Start Date End Date Yareli Lobato NP [address] [place] [address] PCP - General Nurse Practitioner 10/11/18 documented as of this encounter Additional Source Comments The information contained in this document represents components of the legal health record. It is not the complete legal health record.[facility]
--- OUTSIDE RECORDS SUMMARY | 2025-03-04 11:39 | XMS_ITS | Patient Health Record ---
Author Organization [facility] Address [address] [place] [address] Care Team Providers Care Box Inspector Name Role Phone Sarah Arielle Primary Care Provider Unavailabl e Black, Lani Unavailable [phone] Allergies No Known Allergies Reason For Referral No Information Medications Medication SIG (Take, Route, Frequency, Duration) Notes Start Date End Date Status Ciclopirox Olamine N ot-Taking Metoprolol Succinate ER Active Kenalog Not-Taking Rosuvastatin Calcium Active Xarelto 25 Active Multivitamin Not-Samuel ing Tubular compression stockings as directed wear daily 10/11/2021 Activ e Calcium Not-Taking LamISIL 250 MG 1 tablet Orally Once a day; Duration: 90 days 02/28/2014 Not-Takin g Ciclopirox Not-Takin g Flecainide Acetate 50 MG as directed Ora lly twice a day Active Night Splint AFO - L1930 1 wear at rest; Duration: 30 days Active Biofreeze Cool The Pain XL 5 % 1 patch as needed Externally Three times a day 10/05/2023 Active Tolnaftate 1 % 1 application Externally Once a day; Duration: 30 days 07/05/2021 Not-Taking Urea 40 % 1 application to affected area Externally Twice a day; Duration: 30 days 07/12/2021 Not-Takin g Gabapentin 300 MG TAKE 1 CAPSULE BY MOUTH THREE TIMES DAILY Oral; Duration: 30 Days Not-Taking Roflumilast 250 MCG Oral; Duration: 14 Not-Taking Ciclopirox Olamine 0.77% external Apply to effected areas twice a day; Duration: 30 days 06/01/2020 Not-Takin g Clindamycin HCl 300 MG 1 capsule Orally every 12 hrs; Duration: 7 day(s) 05/06/2024 Not-Taking Betamethasone Dipropionate Not-Taking Ketoconazole 2 % 1 application to affected area Externally Once a day; Duration: 14 days 05/15/2017 Not-Taking Doxycycline Not-Taki ng Ciclopirox Olamine 0.77% external Apply to effected areas twice a day; Duration: 30 days 11/02/2016 Not-Takin g amLODIPine Besylate 5 MG 1 tablet Orally Once a day; Duration: 30 day(s) Not-Taking Lisinopril 5 MG 1 tablet Orally Once a day Not-Taking zzzCompression Stockings 20-30mm Hg . . .; Duration: . Not-Takin g zzzCompression Stockings 20-30mm Hg . . .; Duration: . Not-Takin g Skin Prep Wipes - as directed 06/01/2020 Not-Taking Losartan Potassium 100 MG 1 tablet Orall y Once a day; Duration: 30 day(s) Active Advair Diskus Active Ketoconazole 2 % 1 application to affected area Externally Once a day; Duration: 30 days 11/02/2016 Not-Taking Ketoconazole 2 % 1 application Externally Once a day; Duration: 30 days 12/01/2022 Not-Taking vitamin Not-Taking Albuterol PRN Active Ampicillin Active Betamethasone Dipropionate 0.05 % 1 application to affected area Externally Once a day; Duration: 30 days 02/25/2019 Not-Taking Immunizations Vaccine Route Administration Date Status Comme nts Influenza Unknown 04/14/2024 Administered COVID-19 Pfizer BioNTech Vaccine Unknown 05/07/2021 Administered [...] Are you an other tobacco user? No AUDIT-C (Standard) Question Answer Notes Did you have a drink containing alcohol in the p ast year? No Points 0 Interpretation Negative Problems Problem Type SNOMED Code ICD Code Onset Dates Problem Status W/U Status Risk Notes Problem Information temporarily unavailable Other hammer toe(s) (acquired), right foot (M20.41) Active confirmed Problem Information temporarily unavailable Other hammer toe(s) (acquired), left foot (M20.42) Active confirmed Problem Information temporarily unavailable Non-pressure chronic ulcer of other part of right foot limited to breakdown of skin (L97.511) Active confirmed Problem Information temporarily unavailable Non-pressure chronic ulcer of other part of left foot limited to breakdown of skin (L97.521) Active confirmed Problem Information temporarily unavailable 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) Active confirmed Problem Information temporarily unavailable 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) Active confirmed Problem Information temporarily unavailable Primary osteoarthritis, right ankle and foot (M19.071) Active confirmed Problem Information temporarily unavailable Primary osteoarthritis, left ankle and foot (M19.072) Active confirmed Problem Information temporarily unavailable Other hammer toe(s) (acquired), left foot (M20.42) Active confirmed Problem Information temporarily unavailable Arthritis (M19.90) Active confirmed Problem Information temporarily unavailable Pressure ulcer, heel, left, unstageable (L89.620) Active confirmed Problem Information temporarily unavailable 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 confirmed Response to treatment - Improvement Problem Information temporarily unavailable Plantar fasciitis of right foot (M72.2) Active confirmed Problem Information temporarily unavailable 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) Active confirmed Problem Information temporarily unavailable Ulcer of left heel and midfoot, limited to breakdown of skin (L97.421) Active confirmed Problem Information temporarily unavailable Pressure injury of right heel, unstageable (L89.610) Active confirmed Problem Information temporarily unavailable Skin ulcer of toe of right foot, limited to breakdown of skin (L97.511) Active confirmed Response to treatment Problem Information temporarily unavailable Pressure ulcer, ankle, left, unstageable (L89.520) Active confirmed Problem Information temporarily unavailable Skin ulcer of left heel, limited to breakdown of skin (L97.421) Active confirmed Problem Information temporarily unavailable Skin ulcer of right heel, limited to breakdown of skin (L97.411) Active confirmed Problem Information temporarily unavailable Pressure injury of right foot, unstageable (L89.890) Active confirmed Problem Information temporarily unavailable Arthritis of joint of lesser toe, left (M19.072) Active confirmed Problem Information temporarily unavailable Pressure injury of left foot, stage 1 (L89.891) Active confirmed Response t o treatment,Res ponse to treatment - worse Problem Information temporarily unavailable Skin ulcer of toe of left foot, limited to breakdown of skin (L97.521) Active confirmed Response to treatment Problem Information temporarily unavailable Pressure injury of right foot, stage 1 (L89.891) Active confirmed Response t o treatment worse Vital Signs Blood pressure diastolic 70 mm Hg 03/03/2025 Height 5 ft 3 in in 03/03/2025 Blood pressure systolic 120 mm Hg 03/03/2025 Weight 168 lbs 03/03/2025 BMI 29.76 kg/m2 03/03/2025 Procedures Procedure Date Ordered Date Performed Result Body Sit e 40919-NKHNYUP NAIL, 6 OR MORE 05/06/2024 N/A 32409 I&D ABSCESS- SIMPLE,SINGLE 05/06/2024 N/A 98075- Debride <25 sq cm 05/30/2024 N/A 42407-NXATULE NAIL, 6 OR MORE 08/26/2024 N/A 31270-Vnqbhhgi Plate 08/26/2024 N/A 53375-DNNKEMW NAIL, 6 OR MORE 11/25/2024 N/A 90251,Z4790-BIZ TENDON SHEATH/LIGAMENT 11/25/2024 N/A 94216-XJQGOVO NAIL, 6 OR MORE 03/03/2025 N/A Encounters Encounter [facility] Date [facility] [address] [facility]/06/2024 Lani Black Tinea unguium B35.1 ; Tinea pedis of both feet B35.3 ; Pain in right toe(s) M79.674 ; Pain in left toe(s) M79.675 ; Abscess of left foot L02.612 ; Pressure injury of left foot, stage 1 L89.891 and Pressure injury of right foot, stage 1 L89.891 [facility] [address] 05/30/2024 Lani Black Abscess of left foot L02.612 and Skin ulcer of left heel, limited to breakdown of skin L97.[address] [address] 08/26/2024 Lani Black Tinea unguium B35.1 ; Pressure injury of right heel, unstageable L89.610 ; Pain in right toe(s) M79.674 ; Pain in left toe(s) M79.675 and Ingrown nail L60.[address] [address] 11/25/2024 Lani Black Tinea unguium B35.1 ; Bursitis of right foot M77.51 ; Pain in right toe(s) M79.674 ; Pain in left toe(s) M79.675 ; Pain in right foot M79.671 ; Plantar fasciitis of right foot M72.2 and 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 [address] 03/03/2025 Lani Black Tinea unguium B35.1 ; Bursitis of right foot M77.51 ; Pain in right toe(s) M79.674 ; Pain in left toe(s) M79.675 ; Pain in right foot M79.671 ; Plantar fasciitis of right foot M72.2 and 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 [address] 05/06/2024 Lani Black Assessments Encounter Date Diagnosis [...] Bursitis of right foot (ICD-10 - M77.51) 03/03/2025 Tinea unguium (ICD-10 - B35.1) 03/03/2025 Bursitis of right foot (ICD-10 - M77.51) 03/03/2025 Pain in right toe(s) (ICD-10 - M79.674) 11/25/2024 Pain in right toe(s) (ICD-10 - M79.674) 08/26/2024 Pain in right toe(s) (ICD-10 - M79.674) 05/06/2024 Pain in right toe(s) (ICD-10 - M79.674) 05/06/2024 Pain in left toe(s) (ICD-10 - M79.675) 11/25/2024 Pain in left toe(s) (ICD-10 - M79.675) 08/26/2024 Pain in left toe(s) (ICD-10 - M79.675) 03/03/2025 Pain in left toe(s) (ICD-10 - M79.675) 03/03/2025 Pain in right foot (ICD-10 - M79.671) 11/25/2024 Pain in right foot (ICD-10 - M79.671) 08/26/2024 Ingrown nail (ICD-10 - L60.0) 05/06/2024 Abscess of left foot (ICD-10 - L02.612) Patient Educated with: WOUND CARE INSTRUCTIONS.p df (WOUND CARE INSTRUCTIONS.p df) 05/06/2024 Pressure injury of left foot, stage 1 (ICD-10 - L89.891) Response to treatment,Respo nse to treatment - worse Patient Educated with: WOUND CARE INSTRUCTIONS.p df (WOUND CARE INSTRUCTIONS.p df) 11/25/2024 Plantar fasciitis of right foot (ICD-10 - M72.2) Patient Educated with: HEEL CORD STRETCHES.pdf (HEEL CORD STRETCHES.pdf) Patient Educated with: RICE THERAPY.pdf (RICE THERAPY.pdf) Patient Educated with: HEEL CORD STRETCHES.pdf (HEEL CORD STRETCHES.pdf) Patient Educated with: INJECTIONTHERA PY.pdf (INJECTIONTHER APY.pdf) 03/03/2025 Plantar fasciitis of right foot (ICD-10 - M72.2) 11/25/2024 Interstitial myositis of right foot (ICD-10 - M60.171) 03/03/2025 Interstitial myositis of right foot (ICD-10 - [...] X ray : Foot, right 3V 06/25/2013 65344-EDIMSQF NAIL, 6 OR MORE 06/21/2021 51320-YLRWHDJ NAIL, 6 OR MORE 10/11/2021 07559-VISXSLG NAIL, 6 OR MORE 01/20/2022 56959-NYIAMSN NAIL, 6 OR MORE 04/28/2022 29256-CMYZLTJ NAIL, 6 OR MORE 06/01/2020 92182-AWXZXQT NAIL, 6 OR MORE 11/23/2020 14215-NVGKMYB NAIL, 6 OR MORE 03/01/2021 15001-ELXMOIV NAIL, 6 OR MORE 05/06/2024 34569-OZSSBNA NAIL, 6 OR MORE 08/26/2024 00974-HMBQYMK NAIL, 6 OR MORE 11/25/2024 71257-FKFNQOP NAIL, 6 OR MORE 03/03/2025 47427-PJOOWUV NAIL, 6 OR MORE 08/25/2022 59294-UQERENR NAIL, 6 OR MORE 12/01/2022 83476-POENSIU NAIL, 6 OR MORE 03/13/2023 10963-KHGBKXZ NAIL, 6 OR MORE 06/26/2023 88699-IROQHHN NAIL, 6 OR MORE 10/05/2023 97820-FPIEASW NAIL, 6 OR MORE 01/11/2024 65602-ZQSODZX NAIL, 6 OR MORE 05/12/2014 44599-QEXBRIX NAIL, 6 OR MORE 08/18/2014 06311-XVEFHHD NAIL, 6 OR MORE 12/02/2014 99807-FLIBDEQ NAIL, 6 OR MORE 05/06/2015 19487-DJKZTVR NAIL, 6 OR MORE 09/07/2015 74711-NIZULHU NAIL, 6 OR MORE 02/08/2016 21325-YZAYLXL NAIL, 6 OR MORE 06/09/2016 65800-SNCIYUX NAIL, 6 OR MORE 11/02/2016 09961-ZIGZUVJ NAIL, 6 OR MORE 03/07/2017 81057-YPRRHVB NAIL, 6 OR MORE 05/15/2017 16226-ZXMTDXE NAIL, 6 OR MORE 08/21/2017 33196-NPFITIM NAIL, 6 OR MORE 11/23/2017 29909-OCUSMGL NAIL, 6 OR MORE 02/05/2018 01963-HOLQTRV NAIL, 6 OR MORE 05/07/2018 17157-LHYGTBZ NAIL, 6 OR MORE 08/20/2018 02091-KWHHWHZ NAIL, 6 OR MORE 06/08/2011 01134-VLFTATL NAIL, 6 OR MORE 09/07/2011 34257-HIIMMHH NAIL, 6 OR MORE 11/16/2011 59629-BAGNEYE NAIL, 6 OR MORE 02/01/2012 94512-XKJUDWY NAIL, 6 OR MORE 04/11/2012 63338-OFFWUBI NAIL, 6 OR MORE 05/07/2012 56302-JTRIEGY NAIL, 6 OR MORE 07/11/2012 34268-FBVZTFA NAIL, 6 OR MORE 10/10/2012 23237-TXLRLNM NAIL, 6 OR MORE 12/17/2012 87905-VCHROUW NAIL, 6 OR MORE 04/08/2013 59294-ZNLXYKO NAIL, 6 OR MORE 06/25/2013 79318-FLDCJZQ NAIL, 6 OR MORE 07/29/2013 23874-FKEBNGJ NAIL, 6 OR MORE 09/24/2013 44150-TOECFFP NAIL, 6 OR MORE 12/09/2013 12344-IQFVHMH NAIL, 6 OR MORE 02/24/2014 49274-QJTNVSK NAIL, 6 OR MORE 11/19/2018 80831-JHYOQYG NAIL, 6 OR MORE 02/25/2019 89016-JPDFMRU NAIL, 6 OR MORE 06/03/2019 40620-WWSPCCT NAIL, 6 OR MORE 08/26/2019 34888-MWREOPW NAIL, 6 OR MORE 03/04/2020 44118-Wukwxijn Plate 08/20/2018 70103-Wsnfqjft Plate 08/26/2024 66329-Mgcdchhz Plate 03/01/2021 64027-Mhhpgzyr Plate 06/21/2021 42109- Debride <25 sq cm 08/19/2021 59127- Debride <25 sq cm 10/11/2021 26909- Debride <25 sq cm 08/25/2022 70379- Debride <25 sq cm 06/21/2021 68226- Debride <25 sq cm 05/30/2024 39326- Debride <25 sq cm 12/14/2023 89545- Debride <25 sq cm 06/26/2023 96440- Debride <25 sq cm 03/04/2020 53045- Debride <25 sq cm 06/01/2020 31687 I&D ABSCESS- SIMPLE,SINGLE 024 , H8273-HEZWT/INJECT, JOINT/BURSA 1 08/25/201288978,O6502-GQP TENDON SHEATH/LIGAMENT 0 11/25/2024 Next Appt Details Provider Name:Lani Ricketts , 06/09/2025 03:00:00 PM, [address] [facility], [place], [address], Insurance Providers Payer Name Payer Address Payer Phone Subscriber Number Group Number Insured Name Patient Relationship to Insured Coverage Start Date Coverage End Date Medicare National Govt [facility] [address] [facility] [address] [id number] Lainey Floyd Self - patient is the insured 7 [employer] [address] [place] [address] [phone] [id number] Lainey Floyd Self - patient is the insured Medical (General) History Medical History History ICD Code chicken pox asthma Surgical History Surgery Date(Month/Year) appendectomy 1957 carpal tunnel release 04/10/2017 Left Knee replacement 02/02 carpal tunnel surgery 01/04 Hospitalization History Reason Date(Month/Year)
--- OUTSIDE RECORDS SUMMARY | 2025-03-04 11:40 | XMS_ITS | Data Portability ---
Author Organization [facility] [employer] [facility]geons [facility], [facility] Address [address] [place] [address] Care Team Providers Care Reading Recovery Teacher Name Role Phone HAYDEE ARENAS Referring Provider BETHANIE PETERS Primary Care Provider Assessment Encounter Date Assessment Date Assessment LastModified by Organization Details LastModified Time 11/06/2024 11/06/2024 Patient seen under general supervision of Dr. Gómez who was available but who did not see the patient. HPI: 84-year-old seen today for follow-up regarding right knee arthritis. Patient received previous injection which worked well until recently. Has had recurrence of pain. Denies any injuries, falls or trauma. Examination: 84-year-old no acute distress alert and oriented. On examination of the right knee no erythema or warmth noted. Tenderness to palpation appreciated. Calf is soft Impression: Right Knee arthritis Plan: Treatment options are discussed. Role of total knee arthroplasty reviewed. Patient has been doing well with conservative management therefore was offered repeat injection which they accepted, following sterile preparation and informed consent 40 mg Kenalog and 5 cc 1% lidocaine injected into the knee. Patient tolerated procedure well. Postinjection precautions reviewed. Follow-up on a p.r.n. basis. [facility] speech recognition diesel bus mechanic software was used to create portions of this document. An attempt at proofreading has been made to minimize errors. Please call for corrections. [email or web address] Not available 11/06/2024 13:43:17 Plan of Treatment Reminders Order Date Submit Date Provider Last Modified By Organization Details Last Modified Time Details Appointments None recorded. Lab None recorded. Referral None recorded. Procedures None recorded. Surgeries None recorded. Imaging XR, shoulder, 2 or more view - rm 1. 4V right shoulder pain 2023 024 0 [facility], [address], [facility] [address], [place], [address], 15:51:40 Medication Orders None recorded. Patient TargetsNo targets recorded. Patient InstructionsNo instructions recorded. Reason for Referral None Reported. Results Created Date Observation Date Name Description Value Unit Range Abnormal Flag Note LastModifiedBy Organization Detail LastModifiedTime 06/18/20 24 06/18/2024 XR, shoul mallika, 2 or more view http:/ [email or web address] ?Encry pted=s hAaTro YD8dLq bEUv6g %2BXZw aYqtaq 0bqfl% 2Fg9IQ a4ajBk vP9nXo QUaueC m3YtLR FvZlg J8mAn HZtai3 1w5452 AC0Kqa HiMVKW iKiQtr MwF INTERFACE [facility] [address] [facility] [address], [place], [address], 06/18/2024 14:13:21 06/18/20 24 06/18/2024 XR, shoul mallika, 2 or more view http:/ [email or web address] ?Encry pted=s hAaTro YD8dLq bEUv6g %2BXZw aYqtaq 0bqfl% 2Fg9IQ a4ajBk vP9nXo QUaueC m3YtLR FvZl [facility] 7a0310 AC0Kqa HiMVKW iKiQtr MwF INTERFACE [facility] Office [address] [facility] [address], [place], [address], 06/18/2024 14:13:23 Result Notes Documentation Provider Name and Address Organization Details Recorded Time Xr, Shoulder, 2 Or More View : [email or web address] Encrypted=pbBkZwjHT1pOaxJ Uv6g%0ATOniDyedf9zlji%2Fg 1KNm2jzLtnB1fHjJAyhkVz4Um KAJvXaeNZC7hFeXQaue93u257 7OK8SspHgKCEAhJtIzrSwA Not Available [facility] 06/18/2024 14:13: 22 Xr, Shoulder, 2 Or More View : [email or web address] Encrypted=nbDxMenUR5zYjaR Uv6g%8DDTvpAnvub5ntfe%2Fg 3DYb6cfIjxU3cOdBIbogVx9Zr RCWjEtlUNF3aKuIZazn06x266 6OW9QhyEtJFOHvDxKppFoQ Not Available [facility] 06/18/2024 14:13: 24 Problems Name Problem SNOMED Code Status Onset Date Resolution Date Notes Provider Name and Address Organization Details Recorded Time No complaint s 110287216 Active Status: 'I'; Not Available [facility] 4 09:12:33 Pain of right hip joint 510973270225 102 Active 2020 Problem Code: M25.551; Problem Code Type: ICD-10; Status: 'A'; Not Available [facility] 4 11:14:12 History of major orthopedi c surgery 714110116 Active 2021 Status: 'A'; Not Available [facility] 4 11:14:12 Pain of left hip joint 215318533512 100 Active 2023 nikole peters [place] - [facility] 4 10:06:48 Trochante valerio bursitis of left hip 661028337497 103 Active 2024 Laney Cagle PA-C [address], [place], [address] , [facility] - [facility] 5 12:43:57 Osteoarth ritis of left hip joint 065611554979 108 Active 2024 Laney Cagle PA-C [address], [place], [address] , [facility] - [facility] 12:43:57 Problem Notes None recorded. Procedures Surgical History Date Name Laterality Status Provider Name and Address Organization Details Recorded Time 5 Hip Kenalog 1cc Injection, L/R completed Laney Calge PA-C [address] [facility], [place], [address], [facility] 01/15/2025 12:43:59 5 JZKNEE INJ completed Farhan Brito PA-C [address] [facility], [place], [address], [facility] 11/06/2024 13:42:41 5 Hip Kenalog 1cc Injection, L/R completed Laney Cagle PA-C [address] [facility], [place], [address], [facility] 10/15/2024 14:50:11 4 Sports Shoulder Bilateral completed Shantanu Fall MD [address] [facility], [place], [address], [facility] 06/18/2024 16:07:51 4 Sports Knee 4&1 completed Arnie Peace PA-C [address] [facility], [place], [address], [facility] 04/30/2024 12:46:43 4 Hip Kenalog 1cc Injection, L/R completed Laney Cagle PA-C [address] [facility], [place], [address], [facility] 04/23/2024 22:38:34 4 Knee Kenalog 40mg 2cc Injection, L/R completed Bk Christina MD [address] [facility], [place], [address], [facility] 01/23/2024 12:26:32 4 CARPAL TUNNEL RELEASE (SURG) completed COLE RAMOS [facility] 12/27/2023 11:02:48 Imaging Results None recorded. Procedure Notes None recorded. Medical Equipment None Reported. Allergies Allergen ID Allergen Name Allergen Category Reaction Reaction Severity Criticality Documentation Date Start Date Code Code System Note Provider Name and Address Organization Details Recorded Time 459128 Product containin g 3-hydroxy -3-methyl glutaryl- coenzyme A reductase inhibitor (product) medicatio n Not available Not available Not available 10/16/20232019 28140 009 SNOMED Aller gyNam e: 'Stat ins'; Not Available [facility] 15:26:51 Medications Name Sig Start Date Stop [...] 1 CAPSULE BY MOUTH THREE TIMES DAILY 01/15 completed Not Available Not Available Not Available codeine 10 mg-guaifene sin 100 mg/5 mL oral liquid TAKE 10 ML BY MOUTH EVERY 6 HOURS NEEDED FOR COUGH FOR 10 DAYS 10/15 completed Not Available Not Available Not Available furosemide 20 mg tablet TAKE 1 TABLET BY MOUTH DAILY FOR 7 DAYS active Not Available Not Available No t Available metoprolol succinate ER 25 mg tablet,exte [...] Updated DateTime 10/15/2024 158.75 cm 30.4 kg/m2 99355.11 g nikole francois [facility] 10/15/2024 10:59:24 Date Recorded Body height Body mass index (BMI) Body weight Provider Name and Address Organization Details Last Updated DateTime 11/06/2024 158.75 cm 30.4 kg/m2 60883.11 g LAWRENCE KEYS [place] [facility] 11/06/2024 13:00:59 Date Recorded Body height Body mass index (BMI) Body weight Provider Name and Address Organization Details Last Updated DateTime 01/15/2025 158.75 cm 30.4 kg/m2 74831.11 g [facility] 01/15/2025 11:31:38 Date Recorded Body height Body mass index (BMI) Body weight Provider Name and Address Organization Details Last Updated DateTime 06/18/2024 158.75 cm 30.4 kg/m2 39121.11 g JEREMIAS MOSES [facility] 06/18/2024 14:03:03 Date Recorded Body height Body mass index (BMI) Body weight Provider Name and Address Organization Details Last Updated DateTime 07/02/2024 158.75 cm 30.4 kg/m2 31191.11 g [facility] 07/02/2024 09:33:59 Social History None recorded. Functional Status None recorded. Mental Status None recorded. Family History Nothing Reported. Medical History No medical history recorded. Gynecological HistoryNo gynecological history recorded. Obstetrics History GPAL:G 0 P 0 0 0 0 Past Encounters Encounter ID Performer Location Encounter Start Date Encounter Closed Date Diagnosis/Indication Diagnosis SNOMED-CT Code Diagnosis ICD10 Code Diagnosis Note [id number] Tena avelar MD [address] [place] [address] 11/13/2023 11:27:33 12/06/2023 14:18:12 Carpal tunnel syndrome of left wrist 3879590151 11981 G56.02 [id number] Rukhsana Rodriguez OTR/L,CHT [address] [place] [address] 01/09/2024 09:01:00 01/09/2024 12:20:23 Postoperative visit 451815711 Z48.89 Sutures are removed today without complicati [...] a small ball for pillar pain with benedict n was provided. Per the surgeon , [...] Carpal sierra katie syndrome of left wrist 7710609683 01982 G56.02 Upon welcoming the patient from the [...] tasks with the thumb, index, middle fingers. [id number] MD Joe Turner [address] [place] [address] 01/23/2024 08:52:43 02/26/2024 12:10:09 Osteoarthritis of right knee joint 9307710559 51842 M17.11 Osteoarthr itis of right hip joint 8876001342 69882 M16.11 [id number] IRENE Wild [address] [place] [address] 04/23/2024 09:34:09 05/14/2024 14:59:31 Pain of left hip joint 9097602565 61234 M25.552 Trochanter ic bursitis of left hip 6261260770 43072 M70.62 Osteoarthr itis of left hip joint 8675358411 29504 M16.12 [id number] IRENE Epps [address] [place] [address] 04/29/2024 15:20:32 05/20/2024 15:23:03 Osteoarthritis of right knee joint 4383954009 92676 M17.[id number] MD [facility] [address] [place] [address] 06/18/2024 13:57:46 07/15/2024 11:29:30 History of major orthopedic surgery 548655468 Z98.890 Pain of [facility] shoulder region 2997536449 M25.511 Bilateral rotator cuff arthropathy of shoulder 0148290009 5829993 M75.101 M12.811 M12.812 M75.640 [id number] IRENE Wild [address] [place] [address] 07/02/2024 09:28:35 07/26/2024 11:05:02 Trochanteric bursitis of left hip 9837350991 59975 M70.62 Osteoarthr itis of left hip joint 7556071337 54504 M16.12 [id number] Laney Cagle PA-C [facility] [address] [place] [address] 10/15/2024 10:22:37 10/28/2024 13:10:29 Trochanteric bursitis of left hip 9592571675 69633 M70.62 Osteoarthr itis of left hip joint 4166290065 33448 M16.12 [id number] Farhan Brito PA-C [facility] [address] [place] [address] 11/06/2024 12:52:55 11/20/2024 10:47:48 Osteoarthritis of right knee joint 3374119867 10495 M17.11 [id number] Laney Cagle PA-C [facility] [address] [place] [address] 01/15/2025 11:10:23 01/21/2025 11:49:32 Trochanteric bursitis of left hip 3232457723 23975 M70.62 Osteoarthr itis of left hip joint 6326702095 89684 M16.12 Health Concerns Section Related Observation LastModified by Organization Detai ls LastModified Time None Recorded Concern Status LastModified by Organization Details LastModified Time None Recorded Advance Directives Directive None Recorded Payers Insurance Date Sequence Insurance Name Policy Number Policy Barragan Covered Member ID Barragan Member ID Guarantor Name 01/27/2025 1 [place] [employer] Lainey Floyd [id number] Lainey Floyd 01/27/2025 2 [place] [id number] Lainey Floyd [id number] Lainey Floyd Notes Date Note Type Note Provider Name and Address Organization Details Recorded Time 06/18/2024 text/html Chief complaint: Bilateral shoulder painInterval [...] by me and is located in the patient s chart. Examination:The patient is well appearing and in no apparent distress. Alert andoriented x3. Gait is symmetric. Vital signs per intake sheet.Examination of the right shoulder reveals no effusion erythema or warmth. Rotatorcuff atrophy Forward flexion to 40 abduction [id number] rotation to 20 internalrotation to 20. Has [...] in the bicipital groove. X-rays 4 views ordered, obtained, and personally reviewed today AP, Grashey, scapular Y, axillary views right shoulder demonstrate: Cranial migration humeral head consistent [...] as symptoms dictate. Shantanu Fall MD [address], [place], [address], [facility] - [facility] 06/18/2024 16:08:47 07/02/2024 text/html I am seeing [...] and lucid. Normal insight, affect and grooming. HEAD COOK: Gross motor coordination is intact. No spasticity or clonus noted. EXAMINATION: The patient is well appearing and in no apparent distress. Alert and oriented x3. Gait is antalgic. Left hip reveals no obvious deformity upon inspection. No edema, erythema, ecchymosis, or lesions. Neurovascularly intact. Tenderness present over the greater trochanter. ROM slightly restricted endrange. Negative impingement sign, Hollis's, Stinchfield test, and straight leg raise. No instability. 5/5 strength. Calf/leg compartments soft and compressible. Right hip hip reveals no obvious deformity upon inspection. [...] extremities. X-rays ordered, obtained and reviewed at [facility] previously include an AP pelvis and lateral view of left hip. Images reveal mild to moderate osteoarthritis of the left hip joint. There is severe end-stage osteoarthritis of the right hip joint. No acute fracture or lesion. IMPRESSION: Left hip greater trochanteric bursitis and osteoarthritis PLAN: [...] All questions answered. Laney Cagle PA-C [address] [facility] [address], [place], [address], [facility] - [facility] 07/02/2024 [...] and lucid. Normal insight, affect and grooming. HEAD COOK: Gross motor coordination is intact. No spasticity or clonus noted. EXAMINATION: The patient is well appearing and in no apparent distress. Alert and oriented x3. Gait is antalgic. Left hip reveals no obvious deformity upon inspection. No edema, erythema, ecchymosis, or lesions. Neurovascularly intact. Tenderness present over the greater trochanter. ROM slightly restricted endrange. Negative impingement sign, Hollis's, Stinchfield test, and straight leg raise. No instability. 5/5 strength. Calf/leg compartments soft and compressible. Right hip hip reveals no obvious deformity upon inspection. [...] extremities. X-rays ordered, obtained and reviewed at [facility] previously include an AP pelvis and lateral view of left hip. Images reveal mild to moderate osteoarthritis of the left hip joint. There is severe end-stage osteoarthritis of the right hip joint. No acute fracture or lesion. IMPRESSION: Left hip greater trochanteric bursitis and osteoarthritis PLAN: The patient was thoroughly counseled today regarding their hip condition, its natural history, and the treatment options including physical therapy, medication, and a corticosteroid injection. The patient is interested in receiving an injection with corticosteroid. Left trochanteric region was prepped sterilely, and injection was administered at the point of maximum tenderness utilizing 40mg of Kenalog and 4cc of 0.25% Marcaine. The patient tolerated the procedure well. Post-injection precautions were discussed. She is aware that this injection can be repeated in 3 months if needed. All questions answered. Laney Cagle PA-C [address] [place] [address] [address], [place], [address], [facility] - [facility] 10/15/2024 14:50:25 01/15/2025 text/html I am seeing the patient today under the supervision of Dr. Christina who was available but who did not see the patient. HPI: Lainey presents to the office today for a recheck of her left hip. She has known end-stage osteoarthritis of the right hip. She was diagnosed with left hip greater trochanteric bursitis and osteoarthritis at a previous visit. Her most recent bursa cortisone injection was in October. She recently began noticing discomfort over the lateral hip which is most bothersome at night. She is here for repeat cortisone injection. PMH/PSH/MEDS/ALL/FMH/S OC HX/ROS are reviewed in detail per my medical intake sheet. General Exam: Vital signs are as noted below Mental status: Alert and lucid. Normal insight, affect and grooming. HEAD COOK: Gross motor coordination is intact. No spasticity or clonus noted. EXAMINATION: The patient is well appearing and in no apparent distress. Alert and oriented x3. Gait is antalgic. Left hip reveals no obvious deformity upon inspection. No edema, erythema, ecchymosis, or lesions. Neurovascularly intact. Tenderness present over the greater trochanter. ROM slightly restricted endrange. Negative impingement sign, Hollis's, Stinchfield test, and straight leg raise. No instability. 5/5 strength. Calf/leg compartments soft and compressible. Right hip hip reveals no obvious deformity upon inspection. [...] extremities. X-rays ordered, obtained and reviewed at [facility] previously include an AP pelvis and lateral view of left hip. Images reveal mild to moderate osteoarthritis of the left hip joint. There is severe end-stage osteoarthritis of the right hip joint. No acute fracture or lesion. IMPRESSION: Left hip greater trochanteric bursitis and osteoarthritis PLAN: The patient was thoroughly counseled today regarding their hip condition, its natural history, and the treatment options including physical therapy, medication, and a corticosteroid injection. The patient is interested in receiving an injection with corticosteroid. Left trochanteric region was prepped sterilely, and injection was administered at the point of maximum tenderness utilizing 40mg of Kenalog and 4cc of 0.25% Marcaine. The patient tolerated the procedure well. Post-injection precautions were discussed. She is aware that this injection can be repeated in 3 months if needed. All questions answered. IRENE [address], [place], [address], [facility] - [facility] 01/15/2025 12:44:38 OBGyn Episode No OBEpisode recorded.
== END 2025-03-04 10:56 | disposition home or self-care (01) ==
LOC: HO.HCS 10:29
PROVIDERS: PCP Nurse Practitioner Adult Health; Visit Provider Internal Medicine
DX: I35.0 Nonrheumatic aortic (valve) stenosis (principal); I48.0 Paroxysmal atrial fibrillation; I25.10 Atherosclerotic heart disease of native coronary artery without angina pectoris; I10 Essential (primary) hypertension; Z78.9 Other specified health status
CPT/HCPCS: 93010; 99214; G2211

== ENCOUNTER → 2025-03-04 10:29 | Outpatient (BNVA) | payer MEDICARE, SELFPAY | PROVIDERS: PCP Nurse Practitioner Adult Health; Visit Provider Internal Medicine | DX: I35.0 Nonrheumatic aortic (valve) stenosis (principal); I48.0 Paroxysmal atrial fibrillation; I25.10 Atherosclerotic heart disease of native coronary artery without angina pectoris; I10 Essential (primary) hypertension; Z78.9 Other specified health status | CPT/HCPCS: 93005; 99212 ==

== ENCOUNTER 2025-03-05 08:22 | Outpatient (AMB) | payer MEDICARE, SELFPAY ==
[2025-03-05 08:26] VITALS: BP 110/70; PULSE 68; BMI 30.3
--- NOTE | 2025-03-05 08:26 | MHC.OFFVIS ---
Vital Signs 03/05/25 08:26 Height 5 ft 3 in Weight 170 lb 13.732 oz BMI 30.3 BP 110/70 Blood Pressure Location Lt brachial Position Sitting Pulse 68 Pulse Source Palpation Intake Visit Reasons: cough and wheeze Counter Weigher Required: No Accompanied by: Self / Same As Patient Allergies atorvastatin Adverse Reaction (Severe, Verified 03/05/25 08:29) muscle aches simvastatin Adverse Reaction (Severe, Verified 03/05/25 08:29) Muscles Aches HPI Comments Details: The patient is a 84-year-old woman with a known history of lifelong asthma. apparently back in October her respiratory symptoms got much worse with productive cough and green sputum. She was having hard time breathing with shortness of breath and likely wheezing. She was initially evaluated and was she was given a Z-Joshua. And then subsequent after that she was given some prednisone. She was asked to call back if she had any difficulties. Months past and she has not called back. However, her breathing has gotten where were then productive sputum yellowish in color. Sometimes it does gag her with coughing. on further questioning the patient usually gets worse in October. She does have a living space in the basement that this been a good amount of time in. No obvious mold. No birds or animals. 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 Nobody smokes in the house. We did look at her last chest x-ray from August 2011 that she had for her cardiac issues. The time of that that she had some tram tracking suggesting some bronchiectatic changes in the right base. She has not had a x-ray for does prolonged bronchitis. On exam she does have some coarse BS, end exhalation wheezing and bronchospastic cough. 01/23/2023 the patient is here for pulmonary follow-up visit. She has been complaining of a cough that is nonproductive in nature. Now for the last few months. Seems to be getting slightly better. The phlegm is yellowish in color. Initially she had a hard time sleeping because of the cough. This complained of sinusitis. The patient did try the nasal sprays but the nasal sprays cause a bleeding from the nose. Therefore she stopped them. She also has been using her inhalers with partial improvement of the symptoms. No significant wheezing on exam although she does have a productive cough. Will go and start her on a course of doxycycline to treat her for a lower respiratory infection. The patient also has been complaining of increased fatigue and daytime drowsiness. I did recommend she get a chest x-ray in 1-2 weeks. Will follow up with the results 07/26/2023 the patient is here for a pulmonary follow-up visit. She is still having hard time with her breathing and her cough. Apparently it got worse again. Now with yellowish greenish phlegm. Very tenacious difficult to expectorate. She goes to coughing spells moderate severity. She has concerned that she continues to have this chronic bronchitis issue. Seems that she has a baseline chronic bronchitis but this is an exacerbation at this time. No significant wheezing although she does have rhonchi in a very bronchospastic cough at this time. We were able to get a sputum specimen for culture. The patient was start low-dose prednisone and doxycycline. She does take flecainide so she does have limited options when it comes to antibiotics. She also was prescribed Augmentin over the fall and she did develop significant diarrhea and she had to stop it. Her last chest x-ray back over the summer was okay. If she has any worsening symptoms and does not respond to the therapy she will get a repeat x-ray. If the x-ray is not helpful then consider additional imaging studies suggest a CT scan of the chest and also and or bronchoscopy. 09/27/2023 the patient is here for a pulmonary follow-up visit. The patient overall has been feeling a little better. She still coughing the cough is still productive in nature. Although significantly better than before. She has been using her inhalers although her adverse no longer available she is taking the generic that she is concerned because is very expensive. We did talk about the [employer] card and [employer] and she can get that for better walker and I did give her a script for that. In the meantime for chronic bronchitis she did have a culture for strep pneumo and therefore we did vaccinated for that with the Prevnar 20 vaccine today. She was also treated with Augmentin. Therefore, will go ahead and request she start Daliresp to treat her chronic bronchitis with the hope that there was decrease the chest congestion. If she continues to be congested then we should send sputum to make sure that we completely eradicated the strep pneumo. Her chest x-ray was read as clear back over the summer 2022. If her symptoms persist she will come back and get another x-ray. Now the option to get a CT scan of chest and or a bronchoscopy for both diagnostic and therapeutic interventions. 01/31/2024 the patient is here for a pulmonary follow-up visit. She is due struggling with a cough. Productive in nature yellowish phlegm. Worse at nighttime. Moderate severity. The patient did have a visit back in September where we did give her Prevnar 20 vaccine and then we did treat her with doxycycline and also treated her where a with Augmentin for the strep pneumo lung infection that cultured in her sputum. She initially did feel better but then again now symptoms are worsening again. Will go ahead and give her Augmentin again for couple weeks and then get another culture to make sure is clear. She was supposed to get an x-ray. Will go ahead and requested at this time prior to her leaving. And then if still abnormal consider a CT scan of the chest and also consider bronchoscopy for therapeutic and diagnostic interventions. She has worried about a which still inside the house. At this point would still is off so therefore believe that is affecting her breathing right now. But indeed it can affect her breathing and caused irritation to the airways during the winter months. Will follow-up in a couple months. If she has any worsening symptoms she will call for an earlier assessment. 04/17/2024 the patient is here for a pulmonary follow-up visit. She is still struggling with breathing. She has had significant chest congestion. Suppurative airway disease. She did have a sputum culture done and was positive for Pseudomonas in addition to Haemophilus influenzae. She can not tolerate quinolones because she is on flecainide. Unfortunately. The patient ultimately had a CT scan of the chest which we personally reviewed demonstrating bilateral bronchiectasis some treating budding some mucus plugging. Based on the fact that she has bronchiectasis the patient was started on inhaled tobramycin 28 days on. She just completed 28 days. She feels like cough did get better. Although recently she started noticing increasing chest tightness and wheezing in addition to more chest congestion. We were able to get another sputum culture in the office. Unfortunately again she is on flecainide has limited antibiotic coverage. Will go ahead and treated with doxycycline for the possibility of recurrent Haemophilus and also will go ahead and give her some prednisone because she is having increased chest tightness and wheezing. Will continue to plan to continue the inhaled tobramycin 28 days on 20 days off. Although she did have some increased wheezing not sure if is related to the inhaled ZAK. We have to reassess when she restarts it. The other option 2 would be to consider bronchoscopy if the patient continues to be symptomatic for proper therapeutic cleaning of the airways assessing any airway disease or obstructions in addition to that making sure that we get the cultures. Therefore, go ahead and treat the patient now and consider bronchoscopy if the patient is no better. Also, will have the patient have some blood work including immune status to assess any potential etiology for her persistent lower respiratory infections. 05/16/2024 the patient is here for a pulmonary follow-up visit. The patient overall is doing well from a respiratory status. She developed a rash however. Mainly affecting her neck area her hands and also her feet and heels. She is not sure if is related to the ZAK or after that she did take some doxycycline or his related to anything else. Will go ahead and request blood work to assess for any connective tissue conditions that may be doing this specially with her sedimentation rate of 82. Will hold off on antibiotics at this time based on the symptoms in the findings. However, if her chest congestion does reoccur she is to provide additional sputum culture to see the Pseudomonas is still present so we can treated. I do not feel strongly that the rash is related to the inhaled tobramycin. If anything I believe it may be for ototoxicity from the doxycycline. Although was in her feet she had been wearing sandals start the time. The patient should be using her nebulizer for chest PT followed by the Acapella valve. We did review her last CT scan of the chest demonstrating the bronchiectatic changes mucus plugging she also has some small pulmonary nodules that are subcentimeter in size and will require a follow-up CT scan sometime in the spring of 2024. 06/25/2024 the patient is here for sick visit. She started developing worsening respiratory symptoms last week. Started complaining of productive cough yellowish phlegm. The cough was really significant were to the point that she has not been able to sleep at nighttime. She has taken [id number] medications with minimal relief. She started developing some cold sensation some chills. She has also felt fatigued. She was given a sick visit today. The patient so respiratory exam is fairly good just with diminished breath sounds. I do not appreciate any pneumonia. However, with the chills I want to make sure we cover her for lower respiratory infection. The patient does not have any wheezing at this time. Her cough is significantly she is having hard time sleeping. She needs a cough medicine. Will provide her some codeine cough medication that she can use at nighttime. If the patient is no better she will come in have an x-ray and call me. 08/20/2024 the patient is here for pulmonary follow-up visit. She continues to have productive cough and chest congestion and wheezing. She feels a little better than usual but she is still struggling with the on a daily basis. She also notices that she coughs a lot when she is laying flat and also when she is eating. She may have a component of micro aspirations. Will go ahead and request a barium swallow. In addition to that she has had multi polymicrobial infections likely secondary to her bronchiectasis and significant mucus burden. She is working with chest PT using hypertonic saline using the flutter valve. We did talk about considering bronchoscopy for therapeutic cleaning of the airways and also for deep cultures. She is going to consider it. In meantime we did get a sputum culture. Will wait for the culture to come back before treating her but if she feels like she is getting worse she can always call and we can send her empiric antibiotics. She will continue to use her respiratory therapy. She is concerned about using too much albuterol because of the issue of atrial fibrillation. Therefore she will monitor closely for any worsening symptoms. Will follow-up in a couple months. If she has any issues prior to that she will call. If she is agreeable to a bronchoscopy she can always call and we can set set one up. 10/23/2024 the patient is here for a pulmonary follow-up visit. She continues to cough. But 2 weeks ago she started developing a raspy voice some laryngitis. Likely she picked up a respiratory illness and then worsening respiratory disease. She has increased chest congestion and burden. The mucus is yellowish in color. We had multiple cultures previously demonstrating multiple organisms. She has underlying bronchiectasis on exam. She is using the nebulizer and also CPT with flutter valve and also with hypertonic saline. The issue is that she takes flecainide and therefore she is limited as far as some of the therapies that could be provided for her bronchiectasis. Will go ahead and start her on doxycycline and she can start that twice a day and then hopefully we can wean her down to once a day for prophylactic dose. She continue with the therapy. If she is not better she will call back otherwise follow-up in a couple months and assess her progress. 12/26/2024 the patient is here for pulmonary follow-up visit. Overall she is feeling better. She is tolerating the doxycycline. Although she was outside and she did get some photo toxicity. It is only minimal to the hand. Her chest congestion significantly improved. She still coughing up some phlegm but usually light yellowish in color unless in amount. She is also performing well with her nebulized therapy and CPT therapy. She did undergo the barium swallow. We did review it. Seems like she does have some penetration to the larynx although no obvious aspiration. Likely that she does have some degree of aspirations of micro aspirations as leading to the recurrent bronchitis and recurrent infections. Therefore, we did talk about different swallowing techniques such chin talk, alternate liquids and solids and also double swallowing. She is going to attempt to follow these instructions since if she does better with swallowing. She does have concerns about lower extremity edema. Seems to be getting worse. She is wondering if gabapentin can cause swelling. She does not take a big dose though. She is going to see a primary care doctor on Monday. He is going to also get a lower extremity ultrasound sometime next week. She will follow-up with them. She maintain a low-sodium diet. We did talk about considering the compression stockings or compression pneumonic device and or elevating the legs. Diuretics may be also helpful for few days to try to improve her fluid status. She did not have an echocardiogram this year she will talk to her small lot operator specially if her symptoms persist or worsen. 03/05/2025 the patient is here for a sick visit. She started developing worsening cough chest congestion. Last night she was dreaming she could not breathe and indeed she woke up she could not breathe. She did see her small lot operator recently and told her she will having significant wheezing. Moderate severity. She has been using the doxycycline twice a day without any significant improvement. The mucus tends to be still can yellowish in clear but the frequency is more. She is using the nebulizer at times. I did ask her to increase the nebulizer. In the meantime the patient will go ahead and start some prednisone for an asthma exacerbation along with that will switch over her doxycycline to Augmentin. Unfortunately she is on flecainide so therefore will need to avoid quinolones. The patient does have a trip scheduled for the end of February she is going to be away indicate. Therefore will give her enough medicine for the trip. She has a follow-up in April which will keep right now. She has any worsening issues her symptoms she can always call for further recommendations. [facility] Medical History Rash Bronchiectasis Pseudomonal pneumonia Abnormal chest x-ray Statin intolerance Essential hypertension Atherosclerotic cardiovascular disease PAF (paroxysmal atrial fibrillation) Non-rheumatic aortic stenosis Murmur, heart GERD (gastroesophageal reflux disease) Cough Asthma-COPD overlap syndrome Bronchitis Surgical History History of left knee replacement History of carpal tunnel release Family History Mother Breast cancer Father Heart attack Other Allergies Social History Alcohol intake: former Comment: stiffness Patient Tobacco Use Status: Never used Tobacco Review of Systems Const Denies chills, Denies fatigue, Denies fever(s), Denies weight gain and Denies weight loss ENT Denies dizziness Card Denies chest pain, Denies leg edema, Denies lightheadedness, Denies palpitations, Denies dyspnea on exertion, Denies orthopnea and Denies other Resp Reports change in phlegm color, Reports chest congestion, Reports cough, Reports excessive phlegm production, Denies dyspnea on exertion and Reports wheezing GI Denies hematochezia and Denies change in stool character Musc Denies abnormal gait, Denies muscle weakness, Denies numbness, Denies radiating pain into limb and Denies tingling Skin/Breast Reports erythema and Reports rash Neuro Denies abnormal gait, Denies dizziness, Denies numbness and Denies tingling Endo Denies fatigue and Denies palpitations Aller/Immun Reports wheezing Physical Exam Vital Signs: Last Vital Signs Pulse 68 03/05/25 08:26 BP 110/70 03/05/25 08:26 BMI result Body Mass Index 30.3 Const General: alert Neck Neck: Yes normal visual inspection, Yes full ROM and Yes no lymphadenopathy Chest Chest palpation & inspection: normal inspection of the chest Resp Effort & Inspection: no cough and prolonged expiratory phase Auscultation: rhonchi, wheezes and diminished lung sounds Cardio Rate: regular rate Rhythm: regular rhythm Heart sounds: S1 normal heart sound present and S2 normal heart sound present GI Palpation (GI): Soft to palpation and nontender Auscultation: normal bowel sounds Skin General skin exam: rashes and/or lesions noted Assessment & Plan Assessment & Plan (1) Bronchiectasis: Code(s): J47.9 - Bronchiectasis, uncomplicated Category: Medical Qualifiers: Bronchiectasis type: with acute exacerbation Qualified Code(s): J47.1 - Bronchiectasis with (acute) exacerbation (2) Asthma-COPD overlap syndrome: Code(s): J44.9 - Chronic obstructive pulmonary disease, unspecified Category: Medical (3) Cough: Code(s): R05 - Cough Category: Medical Qualifiers: Cough type: chronic Qualified Code(s): R05.3 - Chronic cough Plan nebs 2 times a day followed by [facility] for CPT hold Doxycycline BID start Augmentin Prednisone taper continue Flonase continue Astelin nasal spray nasal rinsing with saline Continue Advair barium swallow, dysphagia +dysphagia diet recs given ARELIS as needed F/U 1-2 months Medications: New prednisone PO daily; Take 4 tabs x 4 days, then 3 tabs x 4 days, then 2 tabs daily x 4 days, then 1 tab x 4 days to complete. 40 tabs 1RF 16 days amoxicillin-pot clavulanate 875-125 mg 1 tab PO BID 20 tabs 0RF 10 days Coding Level of Care Code Est Pt Level 4 (36375) Complex EM visit Add On G2211 Diagnoses Bronchiectasis with acute exacerbation J47.1 Bronchiectasis type: with acute exacerbation Asthma-COPD overlap syndrome J44.9 Chronic cough R05.3 Cough type: chronic Time Spent (min) 16
--- OUTSIDE RECORDS SUMMARY | 2025-03-05 08:34 | XMS_ITS | Patient Health Record ---
Author Organization [facility] Rebekah [facility] Address [address] [place] [address] Care Team Providers Care Digital Coordinator Name Role Phone Sarah Arielle Primary Care Provider Unavailabl e Black, Lani Unavailable [phone] Allergies No Known Allergies Reason For Referral [...] Ordered Date Performed Result Body Sit e 91537-EHOBMWE NAIL, 6 OR MORE 05/06/2024 N/A 11107 I&D ABSCESS- SIMPLE,SINGLE 05/06/2024 N/A 37242- Debride <25 sq cm 05/30/2024 N/A 40932-ENITYRV NAIL, 6 OR MORE 08/26/2024 N/A 87504-Ewcvwkfj Plate 08/26/2024 N/A 21171-OIOLWEK NAIL, 6 OR MORE 11/25/2024 N/A 55695,K7632-FFX TENDON SHEATH/LIGAMENT 11/25/2024 N/A 43499-ZGVXHZG NAIL, 6 OR MORE 03/03/2025 N/A Encounters Encounter Location Date Provider [facility] [address] 05/06/2024 Lani Black Tinea unguium B35.1 ; Tinea pedis of both feet B35.3 ; Pain in right toe(s) M79.674 ; Pain in left toe(s) M79.675 ; Abscess of left foot L02.612 ; Pressure injury of left foot, stage 1 L89.891 and Pressure injury of right foot, stage 1 L89.891 [facility] [address] 05/30/2024 Lani Black Abscess of left foot L02.612 and Skin ulcer of left heel, limited to breakdown of skin L97.[address] [address] 08/26/2024 Lani Black Tinea unguium B35.1 ; Pressure injury of right heel, unstageable L89.610 ; Pain in right toe(s) M79.674 ; Pain in left toe(s) M79.675 and Ingrown nail L60.[address] [address] 11/25/2024 Lani Black Tinea unguium B35.1 ; Bursitis of right foot M77.51 ; Pain in right toe(s) M79.674 ; Pain in left toe(s) M79.675 ; Pain in right foot M79.671 ; Plantar fasciitis of right foot M72.2 and 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 [address] 03/03/2025 Lani Black Tinea unguium B35.1 ; Bursitis of right foot M77.51 ; Pain in right toe(s) M79.674 ; Pain in left toe(s) M79.675 ; Pain in right foot M79.671 ; Plantar fasciitis of right foot M72.2 and 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 [address] 05/06/2024 Lani Black Assessments Encounter Date Diagnosis [...] X ray : Foot, right 3V 06/25/2013 50738-BQCZEGS NAIL, 6 OR MORE 06/21/2021 32793-NWPZAOM NAIL, 6 OR MORE 10/11/2021 56265-HWLSCTD NAIL, 6 OR MORE 01/20/2022 48860-WGTHHNS NAIL, 6 OR MORE 04/28/2022 46505-GDFIOFQ NAIL, 6 OR MORE 06/01/2020 37516-YBPFQXS NAIL, 6 OR MORE 11/23/2020 99644-WAHPZXA NAIL, 6 OR MORE 03/01/2021 43320-QPREMCC NAIL, 6 OR MORE 05/06/2024 54677-ISSZNNE NAIL, 6 OR MORE 08/26/2024 23264-UCAXDDF NAIL, 6 OR MORE 11/25/2024 72915-QAAPQSN NAIL, 6 OR MORE 03/03/2025 64735-MURXGCG NAIL, 6 OR MORE 08/25/2022 45588-CYWNVZC NAIL, 6 OR MORE 12/01/2022 06165-NVWARQA NAIL, 6 OR MORE 03/13/2023 46633-IKSHCVC NAIL, 6 OR MORE 06/26/2023 53786-AWRKRVH NAIL, 6 OR MORE 10/05/2023 18423-LZLQPYA NAIL, 6 OR MORE 01/11/2024 33677-DABYIGT NAIL, 6 OR MORE 05/12/2014 80664-XNWYUZQ NAIL, 6 OR MORE 08/18/2014 67772-HNAIMHZ NAIL, 6 OR MORE 12/02/2014 33522-ZYJXJYQ NAIL, 6 OR MORE 05/06/2015 15185-CFJJCSQ NAIL, 6 OR MORE 09/07/2015 73105-KDRDTRF NAIL, 6 OR MORE 02/08/2016 84955-NNIZMYI NAIL, 6 OR MORE 06/09/2016 01494-JYOTTGO NAIL, 6 OR MORE 11/02/2016 88139-IPEQVTN NAIL, 6 OR MORE 03/07/2017 06874-SAGIKHB NAIL, 6 OR MORE 05/15/2017 63882-EJPXEAU NAIL, 6 OR MORE 08/21/2017 59438-LLCBJLU NAIL, 6 OR MORE 11/23/2017 00610-OUXOEQS NAIL, 6 OR MORE 02/05/2018 49091-ZURKTTH NAIL, 6 OR MORE 05/07/2018 78529-SBZZVOJ NAIL, 6 OR MORE 08/20/2018 70269-EUPIIGJ NAIL, 6 OR MORE 06/08/2011 37001-QXREAOV NAIL, 6 OR MORE 09/07/2011 23381-XCYASBM NAIL, 6 OR MORE 11/16/2011 64467-IYUQXJY NAIL, 6 OR MORE 02/01/2012 56176-WHAJGIM NAIL, 6 OR MORE 04/11/2012 64594-SEFEDFP NAIL, 6 OR MORE 05/07/2012 45369-MQRSCMU NAIL, 6 OR MORE 07/11/2012 85333-SKXOHSA NAIL, 6 OR MORE 10/10/2012 72323-BJRDIXP NAIL, 6 OR MORE 12/17/2012 96811-XVNEYTI NAIL, 6 OR MORE 04/08/2013 10927-LLTWQUZ NAIL, 6 OR MORE 06/25/2013 91404-PPADJJY NAIL, 6 OR MORE 07/29/2013 58147-YCXNCQL NAIL, 6 OR MORE 09/24/2013 50891-HLOXOOG NAIL, 6 OR MORE 12/09/2013 22930-WUWUBLV NAIL, 6 OR MORE 02/24/2014 09007-SGWUPJC NAIL, 6 OR MORE 11/19/2018 39477-YRKYUEF NAIL, 6 OR MORE 02/25/2019 96428-FYBEPXR NAIL, 6 OR MORE 06/03/2019 96608-TUBNASE NAIL, 6 OR MORE 08/26/2019 72327-KWAUCNH NAIL, 6 OR MORE 03/04/2020 96980-Kkzynfmj Plate 08/20/2018 42020-Tblmrblb Plate 08/26/2024 69321-Iktrzbqf Plate 03/01/2021 76273-Buniokzm Plate 06/21/2021 54372- Debride <25 sq cm 08/19/2021 02184- Debride <25 sq cm 10/11/2021 88368- Debride <25 sq cm 08/25/2022 49900- Debride <25 sq cm 06/21/2021 62921- Debride <25 sq cm 05/30/2024 73546- Debride <25 sq cm 12/14/2023 56692- Debride <25 sq cm 06/26/2023 41103- Debride <25 sq cm 03/04/2020 94162- Debride <25 sq cm 06/01/2020 81170 I&D ABSCESS- SIMPLE,SINGLE 024 , M6620-OLAJL/INJECT, JOINT/BURSA 1 08/25/201260973,G0589-EGN TENDON SHEATH/LIGAMENT 0 11/25/2024 Next Appt Details Provider Name:Lani Ricketts , 06/09/2025 03:00:00 PM, [address] [facility], [place], [address], Insurance Providers Payer Name Payer Address Payer Phone Subscriber Number Group Number Insured Name Patient Relationship to Insured Coverage Start Date Coverage End Date Medicare National Govt [facility] [address] [place] [address] [id number] Lainey Floyd Self - patient is the insured 7 [employer] [address] [place] [address] [id number] Lainey Floyd Self - patient is the insured Medical (General) History Medical History History ICD Code chicken pox asthma Surgical History Surgery Date(Month/Year) appendectomy 1957 carpal tunnel release 04/10/2017 Left Knee replacement 02/02 carpal tunnel surgery 01/04 Hospitalization History Reason Date(Month/Year)
--- OUTSIDE RECORDS SUMMARY | 2025-03-05 08:34 | XMS_ITS | Encounter Summary ---
Author Organization [facility] Address [address] [place] [phone] Phone Care Team Providers Care Administrative Job Titles Name Role Phone Yareli Lobato STEEL FITTER Primary Care Provider + Reason for Referral * Physical Therapy (Routine) - Closed Specialty Diagnoses / Procedures Referred By Stu quijano Referred To Contact Physical Therapy Diagnoses Encounter for rehabilitation System, Provider Not In, [facility] [id number] [place] [address] Phone: tel: Referral ID Status Reason Start Date Expiration Date Visits Re quested Visits Authorized [id number] Closed 10/30/2018 08/13/2019 99 99 Encounter Details Date Type Department Care Team (Latest Contact Info) Description 10/11/2018 Transcribe Orders [facility] [address] [place] [phone] Yareli Lobato, STEEL FITTER [address] [place] [address] Encounter for rehabilitation (Primary Dx) Social History [...] Diagnoses Orde r Schedule Ambulatory referral to [facility] Physical Therapy Outpatient Referral Routine Encounter for rehabilitation Ordered: 10/11/2018 documented as of this encounter Visit Diagnoses Diagnosis Encounter for rehabilitation- Primary documented in this encounter Care Teams Administrative Job Titles Relationship Specialty Start Date End Date Yareli Lobato NP [address] [place] [phone] PCP - General Nurse Practitioner 10/11/18 documented as of this encounter Additional Source Comments The information contained in this document represents components of the legal health record. It is not the complete legal health record.[facility]
== END 2025-03-05 08:46 | disposition home or self-care (01) ==
LOC: HO.HPS 08:22
PROVIDERS: PCP Nurse Practitioner Adult Health; Visit Provider Hospitalist
DX: J47.1 Bronchiectasis with (acute) exacerbation (principal); J44.9 Chronic obstructive pulmonary disease, unspecified; R05.3 Chronic cough
CPT/HCPCS: 99214; G2211

== ENCOUNTER → 2025-03-05 08:22 | Outpatient (BNVA) | payer MEDICARE, SELFPAY | PROVIDERS: PCP Nurse Practitioner Adult Health; Visit Provider Hospitalist | DX: J47.1 Bronchiectasis with (acute) exacerbation (principal); R05.3 Chronic cough; Z79.899 Other long term (current) drug therapy | CPT/HCPCS: 99212 ==

== ENCOUNTER 2025-04-25 10:58 | Outpatient (AMB) | payer MEDICARE, SELFPAY ==
--- OUTSIDE RECORDS SUMMARY | 2021-02-04 11:39 | XMS_ITS | Encounter Summary ---
Author Organization [facility] Address [address] [place] [address] Phone Care Team Providers Care Manager Product Support Name Role Phone Yareli Lobato DELI BAKERY CLERK Primary Care Provider + Encounter Details Date Type Department Care Team (Late st Contact Info) Description 02/04/2021 11:39 AM EDT Hospital Encounter [facility] [address] [place] [address] Mia Danielle FNP [address] [place] [phone] JOANNE@[email or web address] Social History Tobacco Use Types Packs/Day [...] reportoriginally created by Onel Powers. Mia Danielle EVAPORATIVE COOLER INSTALLER IMG XR PELVIS Final Resul t documented in this encounter Visit Diagnoses Not on filedocumented in this encounter Care Teams Manager Product Support Relationship Specialty Start Date End Date Yareli Lobato NP [address] [place] [address] PCP - General Nurse Practitioner 10/11/18 documented as of this encounter Additional Source Comments The information contained in this document represents components of the legal health record. It is not the complete legal health record.[facility]
--- OUTSIDE RECORDS SUMMARY | 2021-02-04 11:39 | XMS_ITS | Encounter Summary ---
Author Organization [facility] Address [address] [place] [address] Phone Care Team Providers Care Intelligence Operations Name Role Phone Yareli Lobato SPECTROSCOPIST Primary Care Provider + Encounter Details Date Type Department Care Team (Late st Contact Info) Description 02/04/2021 11:39 AM EDT Hospital Encounter [facility] [address] [place] [address] Mia Danielle FNP [address] [place] [phone] [email or web address] Social History Tobacco Use Types Packs/Day Years [...] reportoriginally created by Onel Powers. Mia Danielle TROLLEY OPERATOR IMG XR UPPER EXTREMITY Ana l Result documented in this encounter Visit Diagnoses Not on filedocumented in this encounter Care Teams Intelligence Operations Relationship Specialty Start Date End Date Yareli Lobato NP [address] [place] [address] [phone] PCP - General Nurse Practitioner 10/11/18 documented as of this encounter Additional Source Comments The information contained in this document represents components of the legal health record. It is not the complete legal health record.[facility]
[2025-04-25 11:00] VITALS: BP 140/70; PULSE 67; O2SAT 95; BMI 31.2
--- NOTE | 2025-04-25 11:00 | MHC.OFFVIS ---
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 apparently back in October her respiratory symptoms got much worse with productive cough and green sputum. She was having hard time breathing with shortness of breath and likely wheezing. She was initially evaluated and was she was given a Z-Joshua. And then subsequent after that she was given some prednisone. She was asked to call back if she had any difficulties. Months past and she has not called back. However, her breathing has gotten where were then productive sputum yellowish in color. Sometimes it does gag her with coughing. on further questioning the patient usually gets worse in October. She does have a living space in the basement that this been a good amount of time in. No obvious mold. No birds or animals. 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 Nobody smokes in the house. We did look at her last chest x-ray from August 2011 that she had for her cardiac issues. The time of that that she had some tram tracking suggesting some bronchiectatic changes in the right base. She has not had a x-ray for does prolonged bronchitis. On exam she does have some coarse BS, end exhalation wheezing and bronchospastic cough. 01/23/2023 the patient is here for pulmonary follow-up visit. She has been complaining of a cough that is nonproductive in nature. Now for the last few months. Seems to be getting slightly better. The phlegm is yellowish in color. Initially she had a hard time sleeping because of the cough. This complained of sinusitis. The patient did try the nasal sprays but the nasal sprays cause a bleeding from the nose. Therefore she stopped them. She also has been using her inhalers with partial improvement of the symptoms. No significant wheezing on exam although she does have a productive cough. Will go and start her on a course of doxycycline to treat her for a lower respiratory infection. The patient also has been complaining of increased fatigue and daytime drowsiness. I did recommend she get a chest x-ray in 1-2 weeks. Will follow up with the results 07/26/2023 the patient is here for a pulmonary follow-up visit. She is still having hard time with her breathing and her cough. Apparently it got worse again. Now with yellowish greenish phlegm. Very tenacious difficult to expectorate. She goes to coughing spells moderate severity. She has concerned that she continues to have this chronic bronchitis issue. Seems that she has a baseline chronic bronchitis but this is an exacerbation at this time. No significant wheezing although she does have rhonchi in a very bronchospastic cough at this time. We were able to get a sputum specimen for culture. The patient was start low-dose prednisone and doxycycline. She does take flecainide so she does have limited options when it comes to antibiotics. She also was prescribed Augmentin over the fall and she did develop significant diarrhea and she had to stop it. Her last chest x-ray back over the summer was okay. If she has any worsening symptoms and does not respond to the therapy she will get a repeat x-ray. If the x-ray is not helpful then consider additional imaging studies suggest a CT scan of the chest and also and or bronchoscopy. 09/27/2023 the patient is here for a pulmonary follow-up visit. The patient overall has been feeling a little better. She still coughing the cough is still productive in nature. Although significantly better than before. She has been using her inhalers although her adverse no longer available she is taking the generic that she is concerned because is very expensive. We did talk about the [facility] card and [employer] and she can get that for better walker and I did give her a script for that. In the meantime for chronic bronchitis she did have a culture for strep pneumo and therefore we did vaccinated for that with the Prevnar 20 vaccine today. She was also treated with Augmentin. Therefore, will go ahead and request she start Daliresp to treat her chronic bronchitis with the hope that there was decrease the chest congestion. If she continues to be congested then we should send sputum to make sure that we completely eradicated the strep pneumo. Her chest x-ray was read as clear back over the summer 2022. If her symptoms persist she will come back and get another x-ray. Now the option to get a CT scan of chest and or a bronchoscopy for both diagnostic and therapeutic interventions. 01/31/2024 the patient is here for a pulmonary follow-up visit. She is due struggling with a cough. Productive in nature yellowish phlegm. Worse at nighttime. Moderate severity. The patient did have a visit back in September where we did give her Prevnar 20 vaccine and then we did treat her with doxycycline and also treated her where a with Augmentin for the strep pneumo lung infection that cultured in her sputum. She initially did feel better but then again now symptoms are worsening again. Will go ahead and give her Augmentin again for couple weeks and then get another culture to make sure is clear. She was supposed to get an x-ray. Will go ahead and requested at this time prior to her leaving. And then if still abnormal consider a CT scan of the chest and also consider bronchoscopy for therapeutic and diagnostic interventions. She has worried about a which still inside the house. At this point would still is off so therefore believe that is affecting her breathing right now. But indeed it can affect her breathing and caused irritation to the airways during the winter months. Will follow-up in a couple months. If she has any worsening symptoms she will call for an earlier assessment. 04/17/2024 the patient is here for a pulmonary follow-up visit. She is still struggling with breathing. She has had significant chest congestion. Suppurative airway disease. She did have a sputum culture done and was positive for Pseudomonas in addition to Haemophilus influenzae. She can not tolerate quinolones because she is on flecainide. Unfortunately. The patient ultimately had a CT scan of the chest which we personally reviewed demonstrating bilateral bronchiectasis some treating budding some mucus plugging. Based on the fact that she has bronchiectasis the patient was started on inhaled tobramycin 28 days on. She just completed 28 days. She feels like cough did get better. Although recently she started noticing increasing chest tightness and wheezing in addition to more chest congestion. We were able to get another sputum culture in the office. Unfortunately again she is on flecainide has limited antibiotic coverage. Will go ahead and treated with doxycycline for the possibility of recurrent Haemophilus and also will go ahead and give her some prednisone because she is having increased chest tightness and wheezing. Will continue to plan to continue the inhaled tobramycin 28 days on 20 days off. Although she did have some increased wheezing not sure if is related to the inhaled ZAK. We have to reassess when she restarts it. The other option 2 would be to consider bronchoscopy if the patient continues to be symptomatic for proper therapeutic cleaning of the airways assessing any airway disease or obstructions in addition to that making sure that we get the cultures. Therefore, go ahead and treat the patient now and consider bronchoscopy if the patient is no better. Also, will have the patient have some blood work including immune status to assess any potential etiology for her persistent lower respiratory infections. 05/16/2024 the patient is here for a pulmonary follow-up visit. The patient overall is doing well from a respiratory status. She developed a rash however. Mainly affecting her neck area her hands and also her feet and heels. She is not sure if is related to the ZAK or after that she did take some doxycycline or his related to anything else. Will go ahead and request blood work to assess for any connective tissue conditions that may be doing this specially with her sedimentation rate of 82. Will hold off on antibiotics at this time based on the symptoms in the findings. However, if her chest congestion does reoccur she is to provide additional sputum culture to see the Pseudomonas is still present so we can treated. I do not feel strongly that the rash is related to the inhaled tobramycin. If anything I believe it may be for ototoxicity from the doxycycline. Although was in her feet she had been wearing sandals start the time. The patient should be using her nebulizer for chest PT followed by the Acapella valve. We did review her last CT scan of the chest demonstrating the bronchiectatic changes mucus plugging she also has some small pulmonary nodules that are subcentimeter in size and will require a follow-up CT scan sometime in the spring. 06/25/2024 the patient is here for sick visit. She started developing worsening respiratory symptoms last week. Started complaining of productive cough yellowish phlegm. The cough was really significant were to the point that she has not been able to sleep at nighttime. She has taken iwua-ovf-jklubgt medications with minimal relief. She started developing some cold sensation some chills. She has also felt fatigued. She was given a sick visit today. The patient so respiratory exam is fairly good just with diminished breath sounds. I do not appreciate any pneumonia. However, with the chills I want to make sure we cover her for lower respiratory infection. The patient does not have any wheezing at this time. Her cough is significantly she is having hard time sleeping. She needs a cough medicine. Will provide her some codeine cough medication that she can use at nighttime. If the patient is no better she will come in have an x-ray and call me. 08/20/2024 the patient is here for pulmonary follow-up visit. She continues to have productive cough and chest congestion and wheezing. She feels a little better than usual but she is still struggling with the on a daily basis. She also notices that she coughs a lot when she is laying flat and also when she is eating. She may have a component of micro aspirations. Will go ahead and request a barium swallow. In addition to that she has had multi polymicrobial infections likely secondary to her bronchiectasis and significant mucus burden. She is working with chest PT using hypertonic saline using the flutter valve. We did talk about considering bronchoscopy for therapeutic cleaning of the airways and also for deep cultures. She is going to consider it. In meantime we did get a sputum culture. Will wait for the culture to come back before treating her but if she feels like she is getting worse she can always call and we can send her empiric antibiotics. She will continue to use her respiratory therapy. She is concerned about using too much albuterol because of the issue of atrial fibrillation. Therefore she will monitor closely for any worsening symptoms. Will follow-up in a couple months. If she has any issues prior to that she will call. If she is agreeable to a bronchoscopy she can always call and we can set set one up. 10/23/2024 the patient is here for a pulmonary follow-up visit. She continues to cough. But 2 weeks ago she started developing a raspy voice some laryngitis. Likely she picked up a respiratory illness and then worsening respiratory disease. She has increased chest congestion and burden. The mucus is yellowish in color. We had multiple cultures previously demonstrating multiple organisms. She has underlying bronchiectasis on exam. She is using the nebulizer and also CPT with flutter valve and also with hypertonic saline. The issue is that she takes flecainide and therefore she is limited as far as some of the therapies that could be provided for her bronchiectasis. Will go ahead and start her on doxycycline and she can start that twice a day and then hopefully we can wean her down to once a day for prophylactic dose. She continue with the therapy. If she is not better she will call back otherwise follow-up in a couple months and assess her progress. 12/26/2024 the patient is here for pulmonary follow-up visit. Overall she is feeling better. She is tolerating the doxycycline. Although she was outside and she did get some photo toxicity. It is only minimal to the hand. Her chest congestion significantly improved. She still coughing up some phlegm but usually light yellowish in color unless in amount. She is also performing well with her nebulized therapy and CPT therapy. She did undergo the barium swallow. We did review it. Seems like she does have some penetration to the larynx although no obvious aspiration. Likely that she does have some degree of aspirations of micro aspirations as leading to the recurrent bronchitis and recurrent infections. Therefore, we did talk about different swallowing techniques such chin talk, alternate liquids and solids and also double swallowing. She is going to attempt to follow these instructions since if she does better with swallowing. She does have concerns about lower extremity edema. Seems to be getting worse. She is wondering if gabapentin can cause swelling. She does not take a big dose though. She is going to see a primary care doctor on Monday. He is going to also get a lower extremity ultrasound sometime next week. She will follow-up with them. She maintain a low-sodium diet. We did talk about considering the compression stockings or compression pneumonic device and or elevating the legs. Diuretics may be also helpful for few days to try to improve her fluid status. She did not have an echocardiogram this year she will talk to her roofing sales representative specially if her symptoms persist or worsen. 03/05/2025 the patient is here for a sick visit. She started developing worsening cough chest congestion. Last night she was dreaming she could not breathe and indeed she woke up she could not breathe. She did see her roofing sales representative recently and told her she will having significant wheezing. Moderate severity. She has been using the doxycycline twice a day without any significant improvement. The mucus tends to be still can yellowish in clear but the frequency is more. She is using the nebulizer at times. I did ask her to increase the nebulizer. In the meantime the patient will go ahead and start some prednisone for an asthma exacerbation along with that will switch over her doxycycline to Augmentin. Unfortunately she is on flecainide so therefore will need to avoid quinolones. The patient does have a trip scheduled for the end of February she is going to be away indicate. Therefore will give her enough medicine for the trip. She has a follow-up in April which will keep right now. She has any worsening issues her symptoms she can always call for further recommendations. 04/25/2025 the patient is here for pulmonary follow-up visit. The patient continues to complain of productive cough. She does have significant chest congestion. Her CAT scan we did review again demonstrating significant bronchiectatic looking airways and bronchitis. She has had Pseudomonas issue. She did need a 2nd course of Augmentin while she was at the [facility]. She also responded well to prednisone. She continues on the flecainide. The patient is willing to try Daliresp to see if we can improve her chronic bronchitis. Will start her on a small dose of 250 mcg and then increase it accordingly. The patient also is currently on Advair. Will switch her over to Trelegy to see if we can provide her with more effective inhaler therapy. If her respiratory symptoms worsen if her productive cough worsens she can always call further recommendations. For now will hold off on the doxycycline. [facility] Medical History Rash Bronchiectasis Pseudomonal pneumonia Abnormal chest x-ray Statin intolerance Essential hypertension Atherosclerotic cardiovascular disease PAF (paroxysmal atrial fibrillation) Non-rheumatic aortic stenosis Murmur, heart GERD (gastroesophageal reflux disease) Cough Asthma-COPD overlap syndrome Bronchitis Surgical History History of left knee replacement History of carpal tunnel release Family History Mother Breast cancer Father Heart attack Other Allergies Social History Alcohol intake: former Comment: stiffness Patient Tobacco Use Status: Never used Tobacco Review of Systems Const Denies chills, Denies fatigue, Denies fever(s), Denies weight gain and Denies weight loss ENT Denies dizziness Card Denies chest pain, Denies leg edema, Denies lightheadedness, Denies palpitations, Denies dyspnea on exertion, Denies orthopnea and Denies other Resp Reports change in phlegm color, Reports chest congestion, Reports cough, Reports excessive phlegm production, Denies dyspnea on exertion and Reports wheezing GI Denies hematochezia and Denies change in stool character Musc Denies abnormal gait, Denies muscle weakness, Denies numbness, Denies radiating pain into limb and Denies tingling Skin/Breast Reports erythema and Reports rash Neuro Denies abnormal gait, Denies dizziness, Denies numbness and Denies tingling Endo Denies fatigue and Denies palpitations Aller/Immun Reports wheezing Physical Exam Vital Signs: Last Vital Signs Pulse 67 04/25/25 11:00 BP 140/70 H 04/25/25 11:00 Pulse Ox 95 04/25/25 11:00 Oxygen Delivery Method Room Air 04/25/25 11:00 BMI result Body Mass Index 31.2 Const General: alert Neck Neck: Yes normal visual inspection, Yes full ROM and Yes no lymphadenopathy Chest Chest palpation & inspection: normal inspection of the chest Resp Effort & Inspection: no cough and prolonged expiratory phase Auscultation: rhonchi and diminished lung sounds Cardio Rate: regular rate Rhythm: regular rhythm Heart sounds: S1 normal heart sound present and S2 normal heart sound present GI Palpation (GI): Soft to palpation and nontender Auscultation: normal bowel sounds Skin General skin exam: rashes and/or lesions noted Assessment & Plan Assessment & Plan (1) Bronchiectasis: Code(s): J47.9 - Bronchiectasis, uncomplicated Category: Medical Qualifiers: Bronchiectasis type: with acute exacerbation Qualified Code(s): J47.1 - Bronchiectasis with (acute) exacerbation (2) Asthma-COPD overlap syndrome: Code(s): J44.9 - Chronic obstructive pulmonary disease, unspecified Category: Medical (3) Cough: Code(s): R05 - Cough Category: Medical Qualifiers: Cough type: chronic Qualified Code(s): R05.3 - Chronic cough Plan nebs 2 times a day followed by [facility] for CPT continue Flonase continue Astelin nasal spray nasal rinsing with saline Continue Advair start Trelegy consider Daliresp barium swallow, dysphagia +dysphagia diet recs given start Chlorhexadine MW x 1 month start Fluticasone and astelin nasal spray ARELIS as needed F/U 2-3 months Medications: New chlorhexidine gluconate 0.12% 15 mL buccal DAILY 473 mL 11RF 30 days fluticasone propionate 50 mcg/actuation 2 sprays intranasal DAILY 15.8 mL 11RF 30 days J31.0 - Chronic rhinitis zqganhufnge-cniasngkq-xrghcdab 200-62.5-25 mcg (Trelegy Ellipta) 1 inh inhalation DAILY 60 ea 12RF 30 days roflumilast (Daliresp) 250 mcg PO DAILY 30 tabs 11RF 30 days J44.9 - Chronic obstructive pulmonary disease, unspecified Refilled azelastine 2 sprays intranasal BID 30 mL 11RF Coding Level of Care Code Est Pt Level 4 (67484) Complex EM visit Add On G2211 Diagnoses Bronchiectasis with acute exacerbation J47.1 Bronchiectasis type: with acute exacerbation Asthma-COPD overlap syndrome J44.9 Chronic cough R05.3 Cough type: chronic Time Spent (min) 17
--- OUTSIDE RECORDS SUMMARY | 2025-04-25 12:45 | XMS_ITS | Encounter Summary ---
Author Organization Formerly [facility] Address [address] [place] [phone] Phone Care Team Providers Care [employer] Dist[employer] Name Role Phone Yareli Lobato CATTLE SORTER Primary Care Provider + Reason for Referral * Physical Therapy (Routine) - Closed Specialty Diagnoses / Procedures Referred By Stu quijano Referred To Contact Physical Therapy Diagnoses Encounter for rehabilitation System, Provider Not In, [facility] [id number] [place] [id number] Phone: tel: Referral ID Status Reason Start Date Expiration Date Visits Re quested Visits Authorized [id number] Closed 10/30/2018 08/13/2019 99 [phone] Encounter Details Date Type Department Care Team (Latest Contact Info) Description 10/11/2018 Transcribe Orders [facility] [address] [place] [id number] Yareli Lobato, CATTLE SORTER [address] [place] [address] Encounter for rehabilitation (Primary Dx) Social History [...] Diagnoses Orde r Schedule Ambulatory referral to [facility] Physical Therapy Outpatient Referral Routine Encounter for rehabilitation Ordered: 10/11/2018 documented as of this encounter Visit Diagnoses Diagnosis Encounter for rehabilitation- Primary documented in this encounter Care Teams [employer] Relationship Specialty Start Date End Date Yareli Lobato NP [address] [place] [id number] PCP - General Nurse Practitioner 10/11/18 documented as of this encounter Additional Source Comments The information contained in this document represents components of the legal health record. It is not the complete legal health record.[facility]
--- OUTSIDE RECORDS SUMMARY | 2025-04-25 12:45 | XMS_ITS | Patient Health Record ---
Author Organization [facility] Address [address] [place] [address] Care Team Providers Care Auto Servicer Name Role Phone Sarah Arielle Primary Care Provider Unavailabl e Black, Lani Unavailable [phone] Allergies No Known Allergies Reason For Referral [...] Ordered Date Performed Result Body Sit e 37154-NFCJJQC NAIL, 6 OR MORE 05/06/2024 N/A 01382 I&D ABSCESS- SIMPLE,SINGLE 05/06/2024 N/A 64460- Debride <25 sq cm 05/30/2024 N/A 14566-TWIWPDV NAIL, 6 OR MORE 08/26/2024 N/A 76064-Jjbmdzmw Plate 08/26/2024 N/A 03110-PABHFCF NAIL, 6 OR MORE 11/25/2024 N/A 37841,B3081-QKW TENDON SHEATH/LIGAMENT 11/25/2024 N/A 46511-BVFJUMC NAIL, 6 OR MORE 03/03/2025 N/A Encounters Encounter Location Date Provider Diagnosis [facility] [address] 05/06/2024 Lani Black Tinea unguium B35.1 ; Tinea pedis of both feet B35.3 ; Pain in right toe(s) M79.674 ; Pain in left toe(s) M79.675 ; Abscess of left foot L02.612 ; Pressure injury of left foot, stage 1 L89.891 and Pressure injury of right foot, stage 1 L89.891 [facility] [address] 05/30/2024 Lani Black Abscess of left foot L02.612 and Skin ulcer of left heel, limited to breakdown of skin L97.[address] [address] 08/26/2024 Lani Black Tinea unguium B35.1 ; Pressure injury of right heel, unstageable L89.610 ; Pain in right toe(s) M79.674 ; Pain in left toe(s) M79.675 and Ingrown nail L60.[address] [address] 11/25/2024 Lani Black Tinea unguium B35.1 ; Bursitis of right foot M77.51 ; Pain in right toe(s) M79.674 ; Pain in left toe(s) M79.675 ; Pain in right foot M79.671 ; Plantar fasciitis of right foot M72.2 and 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 [address] 03/03/2025 Lani Black Tinea unguium B35.1 ; Bursitis of right foot M77.51 ; Pain in right toe(s) M79.674 ; Pain in left toe(s) M79.675 ; Pain in right foot M79.671 ; Plantar fasciitis of right foot M72.2 and 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 [address] 05/06/2024 Lani Black Assessments Encounter Date Diagnosis [...] X ray : Foot, right 3V 06/25/2013 74024-XVDAJQP NAIL, 6 OR MORE 06/21/2021 35990-GKELGIY NAIL, 6 OR MORE 10/11/2021 98619-FRYPKPE NAIL, 6 OR MORE 01/20/2022 33486-AXFGYKM NAIL, 6 OR MORE 04/28/2022 16981-TEJSIHM NAIL, 6 OR MORE 06/01/2020 56277-EHHVQKN NAIL, 6 OR MORE 11/23/2020 79622-RUHMXYG NAIL, 6 OR MORE 03/01/2021 33587-LMWYFJC NAIL, 6 OR MORE 05/06/2024 85583-MQGIKCM NAIL, 6 OR MORE 08/26/2024 62170-KHMESIV NAIL, 6 OR MORE 11/25/2024 25902-PBSOXRE NAIL, 6 OR MORE 03/03/2025 03387-FLOGQID NAIL, 6 OR MORE 08/25/2022 28020-EZKFGOG NAIL, 6 OR MORE 12/01/2022 29888-KQCVQUF NAIL, 6 OR MORE 03/13/2023 66270-UBPZRHH NAIL, 6 OR MORE 06/26/2023 37067-VXOFLWF NAIL, 6 OR MORE 10/05/2023 62812-WJFYNQS NAIL, 6 OR MORE 01/11/2024 31269-KMGAIGJ NAIL, 6 OR MORE 05/12/2014 99200-ICQOXQP NAIL, 6 OR MORE 08/18/2014 86074-RBFGNGA NAIL, 6 OR MORE 12/02/2014 03609-SACCXIY NAIL, 6 OR MORE 05/06/2015 87016-EKTPTMY NAIL, 6 OR MORE 09/07/2015 99106-OBWSNXR NAIL, 6 OR MORE 02/08/2016 53215-CETJDYS NAIL, 6 OR MORE 06/09/2016 77149-CQQPEHC NAIL, 6 OR MORE 11/02/2016 60557-JKIAVRI NAIL, 6 OR MORE 03/07/2017 30770-IIXECQY NAIL, 6 OR MORE 05/15/2017 35884-FJATRBA NAIL, 6 OR MORE 08/21/2017 40643-AAWZXGJ NAIL, 6 OR MORE 11/23/2017 43359-ISNNJQV NAIL, 6 OR MORE 02/05/2018 60421-TPFDQXT NAIL, 6 OR MORE 05/07/2018 35195-CCQNHWJ NAIL, 6 OR MORE 08/20/2018 51814-MQGUUHZ NAIL, 6 OR MORE 06/08/2011 77672-NSJNFGB NAIL, 6 OR MORE 09/07/2011 33786-AQMMVGV NAIL, 6 OR MORE 11/16/2011 27172-ACJOIYO NAIL, 6 OR MORE 02/01/2012 53494-HERYDXU NAIL, 6 OR MORE 04/11/2012 99301-KIVESOO NAIL, 6 OR MORE 05/07/2012 53741-TJQBKWE NAIL, 6 OR MORE 07/11/2012 36726-PEXHFBL NAIL, 6 OR MORE 10/10/2012 64940-ZQBQUDB NAIL, 6 OR MORE 12/17/2012 67614-MHKZZKN NAIL, 6 OR MORE 04/08/2013 38379-RTVBOLE NAIL, 6 OR MORE 06/25/2013 79731-WPGPCWU NAIL, 6 OR MORE 07/29/2013 19248-VDXZZCV NAIL, 6 OR MORE 09/24/2013 70733-WHYQMAX NAIL, 6 OR MORE 12/09/2013 59939-CZIDKWB NAIL, 6 OR MORE 02/24/2014 59200-TKLOJKF NAIL, 6 OR MORE 11/19/2018 65137-TAVZWEN NAIL, 6 OR MORE 02/25/2019 99182-IRHCGHL NAIL, 6 OR MORE 06/03/2019 69778-RAEDQGZ NAIL, 6 OR MORE 08/26/2019 57516-CCWCCNI NAIL, 6 OR MORE 03/04/2020 24136-Fhjkrfog Plate 08/20/2018 21645-Cvbxiokf Plate 08/26/2024 99730-Fpaahpsk Plate 03/01/2021 25535-Pfghygzu Plate 06/21/2021 34784- Debride <25 sq cm 08/19/2021 95674- Debride <25 sq cm 10/11/2021 12470- Debride <25 sq cm 08/25/2022 98616- Debride <25 sq cm 06/21/2021 69778- Debride <25 sq cm 05/30/2024 94269- Debride <25 sq cm 12/14/2023 83924- Debride <25 sq cm 06/26/2023 84671- Debride <25 sq cm 03/04/2020 68884- Debride <25 sq cm 06/01/2020 63641 I&D ABSCESS- SIMPLE,SINGLE 024 , S5313-QMIJQ/INJECT, JOINT/BURSA 1 08/25/201215941,U5379-TGL TENDON SHEATH/LIGAMENT 0 11/25/2024 Next Appt Details Provider Name:Lani Ricketts , 06/09/2025 03:00:00 PM, [address] [facility], [place], [address], Insurance Providers Payer Name Payer Address Payer Phone Subscriber Number Group Number Insured Name Patient Relationship to Insured Coverage Start Date Coverage End Date Medicare National Govt [facility] [address] [facility] [place] [address] [id number] Lainey Floyd Self - patient is the insured 7 [employer] [address] [place] [address] [id number] Lainey Floyd Self - patient is the insured Medical (General) History Medical History History ICD Code chicken pox asthma Surgical History Surgery Date(Month/Year) appendectomy 1957 carpal tunnel release 04/10/2017 Left Knee replacement 02/02 carpal tunnel surgery 01/04 Hospitalization History Reason Date(Month/Year)
--- OUTSIDE RECORDS SUMMARY | 2025-04-25 12:45 | XMS_ITS | Clinical Summary ---
Author Organization [facility] Address [address] [facility] [address] [place] [address] Phone Care Team Providers Care Inspector Exhaust Emissions Name Role Phone Yareli Lobato NP Primary Care Provider + Allergies Active Allergy Reactions Criticality Noted Date Comments Adhesive Tape-Silicones 10/22/2019 Medications metoprolol succinate (TOPROL-XL) 25 MG 24 hr tabletIndications :hypertension Take 25 mg by mouth daily. 1/2 qd Indications: high blood pressure Active rivaroxaban (XARELTO) 20 mg Tab Take by mouth daily with dinner. Active albuterol (VENTOLIN HFA) 90 mcg/actuation inhaler 2 (two) times a day as needed. 2 Active coenzyme Q10 100 mg capsule Take 100 mg by mouth daily. Active TURMERIC ORAL Take by mouth. A ctive multivitamin-mine rals-lutein (MULTIVITAMIN 50 PLUS) Tab Take 1 tablet by mouth daily. Active b complex vitamins capsule Take 1 capsule by mouth daily. Active cholecalciferol (VITAMIN D3) 25 MCG (1,000 unit) tablet Take 1,000 Units by mouth daily. Active ascorbic acid, vitamin C, (VITAMIN C) 250 MG tablet Take 250 mg by mouth daily. Active acetaminophen (TYLENOL) 650 MG CR tablet Take 650 mg by mouth every 8 (eight) hours as needed for pain (specific location in comments). 2 qam and 1qpm Active flecainide (TAMBOCOR) 50 MG tablet Take 50 mg by mouth 2 (two) times a day. 0 Active cetirizine (ZYRTEC) 10 MG tablet Take 10 mg by mouth daily. 0 Active ADVAIR DISKUS 250-50 mcg/dose DISKUS INL 1 PUFF PO BID 0 Active rosuvastatin (CRESTOR) 10 MG tablet Take 10 mg by mouth daily. 0 Active betamethasone dipropionate 0.05 % cream APPLY EXTERNALLY TO THE AFFECTED AREA EVERY DAY 1 Active clotrimazole-beta methasone (LOTRISONE) cream APPLY TO INTACT SKIN AROUND LEFT LOWER LEG WOUND WITH EACH DRESSING CHANGE 1 Active ketoconazole 2 % cream 1 Active levalbuterol (XOPENEX) 0.63 mg/3 mL nebulizer solution USE 3 ML VIA NEBULIZER THREE TIMES DAILY 1 Active lisinopril (PRINIVIL,ZESTRIL ) 20 MG tablet 1 Active Active Problems Problem Noted Date Diagnosed Date Atrial fibrillation 10/22/2019 Hypertension 10/22/2019 Essential familial hyperlipidemia 10/22/2019 Other asthma 10/22/2019 Osteoarthritis 10/22/2019 Encounters Date Type Department Care Team Description 04/15/2025 Transcribe Orders [facility] [address] [place] [address] [place] [address] Jennifer Kuhn Encounter for rehabilitation (Primary Dx) from Last 3 Months Social History Tobacco Use Types Packs/Day Years [...] on file Sexual Orientation Not on file Last Filed Vital Signs Vital Sign Reading Time Taken Comments Blood Pressure 161/68 02/04/2021 11:26 AM EDT Pulse 64 02/04/2021 11:26 AM EDT Temperature 36.6 C (97.9 F) 02/04/2021 11:26 AM EDT Respiratory Rate 18 02/04/2021 11:26 AM EDT Oxygen Saturation 100% 02/04/2021 11:26 AM EDT Inhaled Oxygen Concentration - - Weight 74.8 kg (165 lb) 02/04/2021 11:26 AM EDT Height 160 cm (5' 3 ) 02/04/2021 11:26 AM EDT Body Mass Index 29.23 02/04/2021 11:26 AM EDT Plan of Treatment Health Maintenance Due Date Last Done Comments BLOOD PRESSURE 1942 CREATININE LEVEL 1942 POTASSIUM LEVEL 1942 DEPRESSION SCREENING 1954 ZOSTER VACCINES (1 of 2) 1992 OSTEOPOROSIS SCREENING INITIAL (ONE-TIME) 2007 RSV VACCINE (1 - 1-dose 75+ series) 2017 INFLUENZA VACCINE (#1) 2025 , 04/18/2020, 04/15/2020, Additional history exists COVID-19 VACCINE ( season) 2025 12/09/2021, 05/10/2021, 10/07/2020, Additional history exists Adult Td,Tdap Booster 06/10/2025 06/10/2015 PNEUMOCOCCAL VACCINES (50+ years) Completed 08/15/2019, 10/27/2015, 12/19/2005 HEPATITIS A VACCINES Aged Out No long er eligible based on patient's age to complete this topic HIB VACCINES Aged Out No longer eligi ble based on patient's age to complete this topic MENINGOCOCCAL VACCINES (ACWY) Aged Out No longer eligible based on patient's age to complete this topic MENINGOCOCCAL VACCINES (B) Aged Out N o longer eligible based on patient's age to complete this topic Medical Devices Not on file Insurance MEDICARE PART A & [employer]OSS MEDEX SUPPLEMENT MEDICARE PART A & [employer]OSS MEDEX SUPPLEMENT MEDICARE PART A & [employer]OSS MEDEX SUPPLEMENT MEDICARE PART A & B [employer] MEDEX SUPPLEMENT MEDICARE PART A & B [employer] MEDEX SUPPLEMENT MEDICARE PART A & B [employer] MEDEX SUPPLEMENT MEDICARE PART A & B MEDEX SUPPLEMENT MEDICARE PART A & B [place] MEDEX SUPPLEMENT MEDICARE PART A & [employer] CROSS MEDEX SUPPLEMENT Care Teams Inspector Exhaust Emissions Relationship Specialty Start Date End Date Yareli Lobato NP [address] [place] [address] PCP - General Nurse Practitioner 10/11/18 Additional Source Comments The information contained in this document represents components of the legal health record. It is not the complete legal health record.[facility]
== END 2025-04-25 11:35 | disposition home or self-care (01) ==
LOC: HO.HPS 10:58
PROVIDERS: PCP Nurse Practitioner Adult Health; Visit Provider Hospitalist
DX: J47.1 Bronchiectasis with (acute) exacerbation (principal); J44.9 Chronic obstructive pulmonary disease, unspecified; R05.3 Chronic cough
CPT/HCPCS: 99214; G2211

== ENCOUNTER → 2025-04-25 10:58 | Outpatient (BNVA) | payer MEDICARE, SELFPAY | PROVIDERS: PCP Nurse Practitioner Adult Health; Visit Provider Hospitalist | DX: J47.1 Bronchiectasis with (acute) exacerbation (principal); R05.3 Chronic cough | CPT/HCPCS: 99212 ==

== ENCOUNTER 2025-06-05 14:35 | Inpatient (IN) | payer MEDICARE, SELFPAY ==
--- OUTSIDE RECORDS SUMMARY | 2021-02-04 11:39 | XMS_ITS | Encounter Summary ---
Author Organization [facility] Address [address] [place] [address] Phone Care Team Providers Care Awning Finisher Name Role Phone Yareli Lobato SHINGLES ROOFER Primary Care Provider + Encounter Details Date Type Department Care Team (Late st Contact Info) Description 02/04/2021 11:39 AM EDT Hospital Encounter [facility] [address] [place] [address] Mia Danielle FNP [address] [place] [phone] [email or web address] Social History Tobacco Use Types Packs/Day [...] reportoriginally created by Onel Powers. Mia Danielle PERSONALIZED LIVING MANAGER NURSE IMG XR PELVIS Final Resul t documented in this encounter Visit Diagnoses Not on filedocumented in this encounter Care Teams Awning Finisher Relationship Specialty Start Date End Date Yareli Lobato NP [address] [place] [phone] PCP - General Nurse Practitioner 10/11/18 documented as of this encounter Additional Source Comments The information contained in this document represents components of the legal health record. It is not the complete legal health record.[facility]
--- OUTSIDE RECORDS SUMMARY | 2021-02-04 11:39 | XMS_ITS | Encounter Summary ---
Author Organization [facility] Address [address] [place] [address] Phone Care Team Providers Care Accounts Manager Name Role Phone Yareli Lobato SQL SSIS DEVELOPER Primary Care Provider + Encounter Details Date Type Department Care Team (Late st Contact Info) Description 02/04/2021 11:39 AM EDT Hospital Encounter [facility] [address] [place] [address] Mia Danielle FNP [address] [place] [phone] JOANNE@[email or web address] Social History Tobacco Use Types Packs/Day Years [...] reportoriginally created by Onel Powers. Mia Danielle LOADING MACHINE ADJUSTER IMG XR UPPER EXTREMITY Ana l Result documented in this encounter Visit Diagnoses Not on filedocumented in this encounter Care Teams Accounts Manager Relationship Specialty Start Date End Date Yareli Lobato NP [address] [place] [phone] PCP - General Nurse Practitioner 10/11/18 documented as of this encounter Additional Source Comments The information contained in this document represents components of the legal health record. It is not the complete legal health record.[facility]
--- OUTSIDE RECORDS SUMMARY | 2024-05-02 10:30 | XMS_ITS ---
Author Organization [facility] Address [address] [place] [address] Care Team Providers Care Dairy Lab Technician Name Role Phone Arielle Smith Primary Care Provider Lani Chester [phone] Encounters Encounter Location Date Provider Diagnosis [address] [address] 05/02/2024 Lani Ricketts Plan Of Treatment Next Appt Details Provider Name:Lani Ricketts , 06/09/2025 03:00:00 PM, [address] [place] [address], [phone], Progress Notes * Lainey MORRELL RDOB:[birth year] (85 yo F)Acc No.[id number]:05/02/2024 Progress Note Patient: Lainey MCNAIR Provider: Chanda Ricketts DPM :1940 A ge:84 Y S ex:Female Date:05/02/2024 Address:[address] [place] [phone] Pcp:Arielle Smith Subjective: * Chief Complaints: * * Medical History: Objective: * Vitals: Assessment: Plan: * Treatment: * Images: * The named appointment provid er may or may not be the originator of this progress note, and it is not deemed complete until electronically signed by the appointment provider. Sign off status: Pending * Provider: Chanda Ricektts DPNargis Date: 0 05/02/2024 Generated for Violet desai/Sylvester/Dyllan on: 1 07:00 PM EDT
--- NOTE | ~2025-06-05 | XR_ITS ---
EXAMINATION: XR FOREARM, LEFT CLINICAL INFORMATION: Fall COMPARISON: None available. TECHNIQUE: AP and lateral views of the left forearm were obtained. FINDINGS: There is a fracture through the distal diaphysis of the ulna. There is minimal cortical step-off. There is likely osteopenia. XR/XR forearm LT 2V IMPRESSION: There is an acute fracture involving the distal diaphysis of the left ulna. Electronically signed by: Simon Cam MD 06/05/2025 04:43 PM EDT
--- NOTE | ~2025-06-05 | XR_ITS ---
CLINICAL HISTORY: cough 1 view chest x-ray. Comparison: 06/05/2025 Findings: No consolidation or effusion. Cardiac and mediastinal contours appear stable. Bones unremarkable. Impression: 1. No acute pulmonary disease. This document has been electronically signed by: Raheem Bergeron MD on 06/07/2025 16:01:21
--- NOTE | ~2025-06-05 | XR_ITS ---
EXAMINATION: XR CHEST CLINICAL INFORMATION: SOB COMPARISON: June 07, 2025. TECHNIQUE: Frontal view of the chest was obtained. FINDINGS: Pulmonary reticular pattern. No gross consolidation pleural effusion or pneumothorax. No hyperinflation. Cardiomediastinal silhouette size is normal. Calcified plaque thoracic aorta. Multilevel thoracolumbar spondylosis. S-shaped curvature of the thoracolumbar spine. Desiccation seen in the mitral valve region. Osteopenia versus osteoporosis. Degenerative changes in the shoulders. Patient's large body habitus/obesity. XR/XR chest 1V IMPRESSION: Chronic interstitial lung disease without overt acute airspace disease. Electronically signed by: Campos Hernandez MD 06/09/2025 09:09 AM EDT
--- NOTE | ~2025-06-05 | CT_ITS ---
CLINICAL HISTORY: Fall CT cervical spine without contrast Comparison: None provided Findings: Mild anterolisthesis of C7 on T1, likely degenerative. Multilevel degenerative change of the cervical spine. No acute fractures or dislocations. Visualized intracranial contents are unremarkable. Soft tissues of the neck are normal. Lung apices are clear. Dense calcification of the bilateral carotid bulbs. IMPRESSION: No acute findings. This document has been electronically signed by: Allen Yeboah MD on 06/05/2025 20:36:27
--- NOTE | ~2025-06-05 | XR_ITS ---
EXAMINATION: XR WRIST, LEFT CLINICAL INFORMATION: Fall, pain COMPARISON: None available. TECHNIQUE: PA and lateral views of the left wrist. FINDINGS: There is diffuse osteopenia. There is severe degenerative change involving the first carpal metacarpal joint with joint space narrowing, subchondral sclerosis, and marginal osteophytes. On lateral, there is soft tissue calcification dorsal and volar to the carpus. Calcifications likely represent chondrocalcinosis. There is fracture of the distal ulnar diaphysis. XR/XR wrist LT 2V IMPRESSION: There is an acute fracture of the distal left ulnar diaphysis. 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 Suspected chondrocalcinosis. Electronically signed by: Simon Cam MD 06/05/2025 04:45 PM EDT
--- NOTE | ~2025-06-05 | XR_ITS ---
EXAMINATION: XR CHEST CLINICAL INFORMATION: Fall COMPARISON: January 31 2024 TECHNIQUE: Frontal view of the chest was obtained. FINDINGS: Coarse lung markings and biapical pleural thickening is similar to the prior study. No acute pulmonary changes are noted. There is elevation of the distal left clavicle XR/XR chest 1V IMPRESSION: No acute disease. Left AC joint separation appears new since the prior study. Electronically signed by: Simon Cam MD 06/05/2025 04:48 PM EDT
--- NOTE | ~2025-06-05 | CT_ITS ---
CLINICAL HISTORY: Fall on Xarelto CT head without contrast Comparison: None provided Findings: No intra-axial mass, midline shift, hydrocephalus, or acute hemorrhage. Moderate atrophy and compensatory ventriculomegaly. There is no sinus or mastoid fluid. The orbits are unremarkable. There is no acute fracture. IMPRESSION: 1. No acute intracranial findings. This document has been electronically signed by: Allen Yeboah MD on 06/05/2025 20:39:23
--- NOTE | ~2025-06-05 | XR_ITS ---
CLINICAL HISTORY: fall 2 view left knee Comparison: None provided Findings: Bones intact. No dislocations. Left knee total arthroplasty in anatomic alignment without evidence of hardware loosening or periprosthetic fracture. No significant arthritic change or erosions. No joint effusion. No radiopaque foreign body. Soft tissue irregularity over the anterior and lateral knee. IMPRESSION: 1. No acute findings. 2. Soft tissue injury over the anterior and lateral left knee. This document has been electronically signed by: Allen Yeboah MD on 06/05/2025 20:47:06
--- NOTE | ~2025-06-05 | XR_ITS ---
EXAMINATION: XR ELBOW, LEFT CLINICAL INFORMATION: Fall COMPARISON: None available. TECHNIQUE: AP, lateral, and oblique views of the left elbow. FINDINGS: The bones and soft tissues are normal. No fracture or joint effusion. Alignment is anatomic. Joint spaces are maintained. Fat pads are not displaced. XR/XR elbow LT 2V IMPRESSION: No acute abnormality. Electronically signed by: Simon Cam MD 06/05/2025 04:46 PM EDT
[2025-06-05 14:43] VITALS: BP 120/60; PULSE 80; O2SAT 98; BMI 32.2
--- NOTE | 2025-06-05 14:53 | ECG_ITS ---
Test Reason : FALL Blood Pressure : */* mmHG Vent. Rate : 67 BPM Atrial Rate : 67 BPM P-R Int : 188 ms QRS Dur : 84 ms QT Int : 410 ms P-R-T Axes : 66 -15 26 degrees QTcB Int : 433 ms Normal sinus rhythm Low voltage QRS Inferior infarct , age undetermined Abnormal ECG When compared with ECG of 16-Aug-2019 11:28, No significant change was found Referred By: Flory Ramirez Electronically Signed By: RUDI KUNZ MD
[2025-06-05 14:55] VITALS: BP 145/84; PULSE 82; RESP 18; TEMP 36.6; O2SAT 98
--- NOTE | 2025-06-05 14:57 | ED.FALL ---
HPI - Fall General Chief Complaint: Fall Stated Complaint: TRIP/FALL TO KNEES/L ARM W/SKIN TEARS,+THINNER Time Seen by Provider: 06/05/25 14:42 Source: patient, EMS and old records reviewed Mode of arrival: EMS Limitations: no limitations History of Present Illness ED Provider: DR. Ramirez HPI Narrative: 85-year-old female came in by ambulance for evaluation after sustained a mechanical fall at home, patient with history of atrial fibrillation on Xarelto stated that she got up and turned to her left side very quick tripped on her own feet and fell down complaining of multiple skin tear on her left forearm, left aguero, and right knee, declined hitting her head, no LOC, no headache. No LOC, no CP, no SOB. Related Data Home Medications ?Medication ?Instructions ?Recorded ?Confirmed cholecalciferol (vitamin D3) 25 25 mcg PO DAILY 06/10/20 03/04/25 mcg (1,000 unit) capsule coenzyme Q10 75 mg capsule (Ultra 75 mg PO DAILY 05/16/22 03/04/25 CoQ10) valsartan 160 mg tablet 160 mg PO DAILY 05/16/22 03/04/25 nebulizers 01/23/23 03/04/25 Previous Rx's ?Medication ?Instructions ?Recorded levalbuterol HCl 1.25 mg/3 mL 1.25 mg (3 mL) inhalation BID 04/17/24 solution for nebulization days #180 mL metoprolol succinate 25 mg 25 mg PO DAILY #90 tabs 08/28/24 tablet,extended release 24 hr (Toprol XL) fluticasone 250 mcg-salmeterol 50 1 ea inhalation BID 90 days #180 ea 10/23/24 mcg/dose blistr powdr for inhalation (Advair Diskus) sodium chloride 7 % for 4 ml inhalation BID 30 days #240 mL 10/23/24 nebulization rivaroxaban 20 mg tablet (Xarelto) 20 mg PO DAILY #90 tabs 12/09/24 albuterol sulfate 90 mcg/actuation 2 inh inhalation Q6H PRN shortness 02/03/25 aerosol inhaler of breath or wheezing 30 days #18 grams doxycycline monohydrate 100 mg 100 mg PO BID 28 days #56 tabs 02/03/25 tablet rosuvastatin 10 mg tablet 10 mg PO BEDTIME #90 tabs 03/18/25 azelastine 137 mcg (0.1 %) nasal 2 spray intranasal BID #30 mL 04/25/25 spray chlorhexidine gluconate 0.12 % 15 ml buccal DAILY 30 days #473 mL 04/25/25 mouthwash fluticasone fur. 200 mcg-umeclid 1 inh inhalation DAILY 30 days #60 04/25/25 62.5 mcg-vilant 25 mcg ea inhalat.powder (Trelegy Ellipta) fluticasone propionate 50 2 spray intranasal DAILY 30 days 04/25/25 mcg/actuation nasal #15.8 mL spray,suspension roflumilast 250 mcg tablet 250 mcg PO DAILY 30 days #30 tabs 04/25/25 (Daliresp) flecainide 50 mg tablet 50 mg PO BID #180 tabs 04/28/25 amoxicillin 875 mg-potassium 1 tab PO BID 10 days #20 tabs 05/09/25 clavulanate 125 mg tablet prednisone 20 mg tablet See Rx Instructions PO DAILY 10 05/09/25 days #15 tabs roflumilast 500 mcg tablet 250 mcg (1/2 x 500 mcg) PO DAILY 05/13/25 (Daliresp) 30 days #15 tabs Allergies Allergy/AdvReac Type Severity Reaction Status Date / Time atorvastatin AdvReac Severe muscle Verified 06/05/25 14:53 aches simvastatin AdvReac Severe Muscles Verified 06/05/25 14:53 Aches Review of Systems Review of Systems: All other systems are reviewed and are negative Constitutional: Reports as per HPI and Reports no additional constitutional complaints Eyes: Reports as per HPI and Reports no additional eye complaints Reports system reviewed and no additional complaints, except as documented Cardiovascular: Reports as per HPI and Reports no additional cardiovascular complaints Respiratory: Reports as per HPI and Reports no additional respiratory complaints Gastrointestinal: Reports as per HPI and Reports no additional gastrointestinal complaints Genitourinary: Reports no additional female genitourinary complaints Musculoskeletal: Reports no additional musculoskeletal complaints Skin/Breast: Reports system reviewed and no additional complaints, except as docu Psychiatric: Reports no additional psychiatric complaints Endocrine: Reports no additional endocrine complaints Hematologic/Lymphatic: Reports no additional hematologic/lymphatic complaints Allergic/Immunologic: Reports no additional allergic/immunologic complaints Reports system reviewed and no additional complaints, except as documented and Reports Abnormal speech present PMFSH Past Medical History Medical History Rash Bronchiectasis Pseudomonal pneumonia Abnormal chest x-ray Statin intolerance Essential hypertension Atherosclerotic cardiovascular disease PAF (paroxysmal atrial fibrillation) Non-rheumatic aortic stenosis Murmur, heart GERD (gastroesophageal reflux disease) Cough Asthma-COPD overlap syndrome Bronchitis Surgical History History of left knee replacement History of carpal tunnel release Family History Family History Mother Breast cancer Father Heart attack Other Allergies Social History Social History Unable to assess alcohol history related to: Unknown Alcohol intake: former Comment: stiffness Patient Tobacco Use Status: Never used Tobacco Smoked in Last 30 Days: No Use of substances other than those prescribed or required for medical reasons: Unknown Advance Directives: No Advance Directives Information Provided: Yes Do you have a plan to hurt others: No Plan Physical Exam Vital Signs: Vital Signs: Last Vital Signs Temp 98.3 F 06/05/25 19:13 Pulse 78 06/05/25 19:13 Resp 16 06/05/25 19:13 BP 137/71 06/05/25 19:13 Pulse Ox 96 06/05/25 19:13 O2 Del Method Room Air 06/05/25 19:13 BMI result Body Mass Index 32.2 Vital signs have been reviewed and appear to be correct. Blood pressure elevated. Heart rate normal. Respiratory rate normal. Temperature normal. Oxygen saturation normal. Appearance: Alert. Oriented X3. No acute distress. Head: Normal external exam. Normocephalic. Atraumatic. No Langley signs noted. No raccoon eyes noted Eyes: PERRLA. EOMI. Conjunctiva and sclera normal. Eyelids normal. ENT: TM's Normal. Pharynx normal. Uvula midline. Moist mucous membranes. No trismus noted. No drooling noted. No muffled voice noted. Neck: Normal inspection. Neck supple. FROM. No adenopathy. Thyroid Normal. No meningeal signs. No neck mass noted. CVS: Normal heart rate and rhythm. Heart sound normal. No murmurs noted. Pulses normal throughout. Respiratory: No respiratory distress. Painless inspiration. Breath sounds normal. No wheezes/rales/rhonchi noted. Chest nontender. No accessory muscle usage noted or decreased air movement noted. Abdomen: Soft and nontender. Bowel sounds normal in all 4 quadrants. No distention noted. No organomegaly noted. No visible injury noted. Back: No CVA tenderness. Full range of motion noted. Skin: Skin warm and dry. Normal skin color. Normal skin turgor. No rashes/lesions/lacerations noted. Extremities: 5 x 5 cm skin tear to the left forearm, tenderness over upper part of the on the with no deformity. otherwise neurovascularly intact. Left knee: Complicated skin tear that require only 3 sutures, skin is very delicate making laceration is nonsuturable Right knee: Superficial skin tear. Neuro: Oriented X 3. Cranial nerve exam: II-XII are grossly intact No motor deficit. No sensory deficit. Reflexes normal. Course Reevaluation(s) Reevaluation #1: 85-year-old female came in after sustained a mechanical fall. 1. Left AC separation. Will provide shoulder sling. 2. Left forearm skin tear and left ulnar fracture. The skin is very delicate and the tear is nonsuturable, will clean and dress with dry clean dressing. And will apply ulnar splint. 3. Very complicated skin tear over the left knee area was able to suture upper part of the laceration with 3 sutures but the rest of the want is nonsuturable secondary to very delicate skin. 4. Skin care over right knee skin tear. Time: 20:46 Medications Administered Discontinued Medications Generic Name Dose Route Start Last Admin Trade Name Freq PRN Reason Stop Dose Admin Bacitracin 5 appl 06/05/25 14:55 06/05/25 15:08 Bacitracin Oint 0.9 Gm Packet TOPICAL 06/05/25 14:56 5 appl ONCE ONE Administration Protocol Acetaminophen 1,000 mg in 100 mls @ 400 mls/hr 06/05/25 15:01 06/05/25 15:30 Ofirmev IV 06/05/25 15:15 Infused ONCE ONE Infusion Sodium Chloride 1,000 mls @ 999 mls/hr 06/05/25 18:22 06/05/25 20:15 Ns IV 06/05/25 19:22 Infused .Q1H1M ONE Infusion Lidocaine HCl 10 ml 06/05/25 16:04 06/05/25 17:09 Lidocaine Hcl 1 % Mpf 5 Ml Vial SUBCUT 06/05/25 16:05 10 ml ONCE ONE Administration Morphine Sulfate 2 mg 06/05/25 15:01 06/05/25 15:07 Morphine Sulfate 4 Mg/Ml Cartridge IVPUSH 06/05/25 15:02 2 mg ONCE ONE Administration Protocol Morphine Sulfate 2 mg 06/05/25 18:34 06/05/25 18:38 Morphine Sulfate 4 Mg/Ml Cartridge IVPUSH 06/05/25 18:35 2 mg ONCE ONE Administration Protocol Medical Decision Making Differential Diagnosis Differential Diagnoses: The differential diagnosis associated with the presentation includes (Closed head injury, intracranial bleed, cervical spine injury, skin tear care, left wrist fracture, left knee fracture, right knee fraction.) Admission/Observation Consideration of admission/observation: Escalation of care including admission/observation considered Consult Healthcare Provider Management of the patient was discussed with: Hospitalist (Dr. Ross) Lab Data MDM Lab Attestation statement: I reviewed the patient's lab results. 06/05/25 15:19 06/05/25 15:19 Labs: Lab Results 06/05/25 Range/Units 15:19 WBC 7.8 (4.8-10.8) X10*3/uL RBC 3.12 L (4.20-5.50) X10*6/uL Hgb 9.9 L (12.0-16.0) g/dl Hct 29.1 L D (37.0-47.0) % MCV 93.3 (80.0-98.0) fL MCH 31.7 (27.0-33.0) pg MCHC 34.0 (31.0-35.0) g/dl RDW 14.8 (11.0-16.0) % Plt Count 310 (160-400) X10*3/uL MPV 8.3 L (9.4-12.3) fL Immature Gran % (Auto) 0.4 (0.0-0.4) % Neut % (Auto) 67.3 (45-73) % Lymph % (Auto) 20.1 (20-40) % [place] % (Auto) 10.5 (2-11) % Eos % (Auto) 1.4 (0-4) % Baso % (Auto) 0.3 (0-2) % Lymph # (Auto) 1.6 (1.2-4.9) X10*3/uL [place] # (Auto) 0.8 (0.1-1.2) X10*3/uL Eos # (Auto) 0.1 (0.0-0.4) X10*3/uL Baso # (Auto) 0.0 (0.0-0.2) X10*3/uL Abs Immat Gran (auto) 0.03 (0.00-0.03) X10*3/uL Absolute Neuts (auto) 5.3 (2.0-8.3) x10*3/uL Absolute Nucleated RBC 0.000 (0.0-0.012) X10*3/uL Nucleated RBC % (auto) 0.0 (0.0-0.2) /100WBC PT 14.6 H (10.9-12.4) SEC INR 1.3 H (0.9-1.1) Sodium 129 L (135-145) mmol/L Potassium 4.4 (3.3-5.1) mmol/L Chloride 98 (96-108) mmol/L Carbon Dioxide 25 (22-29) mmol/L Anion Gap 10 L (12-20) BUN 14 (9-16) mg/dL Creatinine 0.69 (0.5-1.4) mg/dL Estim Creat Clear Calc 55.8 Estimated GFR > 60 Random Glucose 147 H (60-115) mg/dL Calcium 8.7 D (8.4-10.2) mg/dL Total Bilirubin 0.3 (0.0-1.0) mg/dL Direct Bilirubin 0.1 (0.0-0.5) mg/dL AST 32 H (5-31) U/L ALT 18 (0-31) U/L Alkaline Phosphatase 75 (39-117) U/L Troponin I High Sens 3.2 (<3.5-17.0) ng/L Total Protein 6.1 L (6.5-8.0) g/dL Albumin 3.7 (3.5-5.0) g/dL Lipase 27 (8-78) U/L Independent Interpretation I performed an independent interpretation of an: Plain X-Ray (Left knee, chest/left wrist/left forearm/left elbow:There is an acute fracture involving the distal diaphysis of the left ulna. ) and CT Scan (Head and neck: No acute intracranial pathology/no acute cervical spine fracture.) Radiology Impression Discussion of test interpretation with radiology: I have reviewed the radiologist's reading. Discharge Plan Discharge Clinical Impression: Separation of left acromioclavicular joint, Acute hyponatremia, Fall, Fracture of left ulna, Skin tear of forearm without complication, Laceration of skin of left knee without complication Patient Disposition: Admitted As Inpatient Print Language: Albanian
[2025-06-05 15:25] LABS: MANUAL DIFF FLAG NO
[2025-06-05 15:27] LABS: Hematocrit 29.1 % (37.0-47.0); Hemoglobin 9.9 g/dl (12.0-16.0); Imm Gran Abs Auto 0.03 X10*3/uL (0.00-0.03); Imm Gran Pct Auto 0.4 % (0.0-0.4); Lymphocytes Absolute Auto 1.6 X10*3/uL (1.2-4.9); Mean Corpuscular HGB Conc 34.0 g/dl (31.0-35.0); Mean Corpuscular Hemoglobin 31.7 pg (27.0-33.0); Mean Corpuscular Volume 93.3 fL (80.0-98.0); NRBC Abs Auto 0.000 X10*3/uL (0.0-0.012); NRBC Pct Auto 0.0 /100WBC (0.0-0.2); Platelet Count 310 X10*3/uL (160-400); Red Blood Count 3.12 X10*6/uL (4.20-5.50); White Blood Count 7.8 X10*3/uL (4.8-10.8)
[2025-06-05 15:35] LABS: INTERNATIONAL NORM RATIO 1.3 (0.9-1.1); Prothrombin Time 14.6 SEC (10.9-12.4)
[2025-06-05 15:46] LABS: Alanine Aminotransferase 18 U/L (0-31); Albumin Level 3.7 g/dL (3.5-5.0); Alkaline Phosphatase 75 U/L (39-117); Anion Gap 10 (12-20); Aspartate Amino Transferase 32 U/L (5-31); Blood Urea Nitrogen 14 mg/dL (9-16); Calcium 8.7 mg/dL (8.4-10.2); Carbon Dioxide 25 mmol/L (22-29); Chloride 98 mmol/L (96-108); Creatinine Clr Calc Pharmacy 55.8; Estimated Glomerular Filt Rate > 60; Lipase 27 U/L (8-78); Potassium 4.4 mmol/L (3.3-5.1); Sodium 129 mmol/L (135-145); Total Protein 6.1 g/dL (6.5-8.0)
[2025-06-05 15:53] LABS: Troponin-I High Sensitivity 3.2 ng/L (<3.5-17.0)
[2025-06-05 16:40] VITALS: BP 129/38; PULSE 69; RESP 16; TEMP 36.9
[2025-06-05] MEDS: Lidocaine HCl 1 % MPF 5 ML VIAL 10 ML SUBCUT (17:09)
--- OUTSIDE RECORDS SUMMARY | 2025-06-05 19:00 | XMS_ITS | Patient Health Record ---
Author Organization [facility] Address [address] [place] [address] Care Team Providers Care Data Analysis Intern Name Role Phone Sarah Arielle Primary Care Provider Unavailabl e Black, Lani Unavailable [phone] Allergies No Known Allergies Reason For Referral [...] Ordered Date Performed Result Body Sit e 56439-DNFZLBV NAIL, 6 OR MORE 08/26/2024 N/A 76675-Veptolqn Plate 08/26/2024 N/A 50544-SUTLNEE NAIL, 6 OR MORE 11/25/2024 N/A 44905,H7468-RDQ TENDON SHEATH/LIGAMENT 11/25/2024 N/A 99291-LIRYLWR NAIL, 6 OR MORE 03/03/2025 N/A Encounters Encounter Location Date Provider [facility] [address] [address] 08/26/2024 Lani Black Tinea unguium B35.1 ; Pressure injury of right heel, unstageable L89.610 ; Pain in right toe(s) M79.674 ; Pain in left toe(s) M79.675 and Ingrown nail L60.[address] 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 [facility] [address] [place] [address] 03/03/2025 Lani Black Tinea unguium B35.1 ; [...] M79.671) 08/26/2024 Ingrown nail (ICD-10 - L60.0) 11/25/2024 Plantar fasciitis of right foot (ICD-10 [...] myositis of right foot (ICD-10 - M60.171) 08/26/2024 Other Plan Of Treatment Pending Test Test Name Order Date X ray : Ankle, left 2V 11/23/2020 *Wound Culture 05/06/2024 *Liver Function Test (LFT) 02/24/2014 X ray : Foot, left 3V 06/25/2013 X ray : Foot, right 3V 06/25/2013 90591-CMSTLNY NAIL, 6 OR MORE 06/21/2021 95406-WBNXXFE NAIL, 6 OR MORE 10/11/2021 81467-GHPYALB NAIL, 6 OR MORE 01/20/2022 55365-JUZTQDI NAIL, 6 OR MORE 04/28/2022 65190-SSHQPIF NAIL, 6 OR MORE 06/01/2020 58395-GYMIMEI NAIL, 6 OR MORE 11/23/2020 71727-TNXECWH NAIL, 6 OR MORE 03/01/2021 70589-KVWYZAT NAIL, 6 OR MORE 05/06/2024 11971-AJDALWD NAIL, 6 OR MORE 08/26/2024 95563-FJYIKIZ NAIL, 6 OR MORE 11/25/2024 01088-CVSBJFV NAIL, 6 OR MORE 03/03/2025 16236-AOAAQYA NAIL, 6 OR MORE 08/25/2022 04548-VRVLSCY NAIL, 6 OR MORE 12/01/2022 91873-TFGNSWW NAIL, 6 OR MORE 03/13/2023 20127-ZIKVNJB NAIL, 6 OR MORE 06/26/2023 92181-ORWDSJS NAIL, 6 OR MORE 10/05/2023 34345-GTKARGI NAIL, 6 OR MORE 01/11/2024 76457-TKBSJGM NAIL, 6 OR MORE 05/12/2014 98248-YCEPBFT NAIL, 6 OR MORE 08/18/2014 73674-KQEHWBT NAIL, 6 OR MORE 12/02/2014 06508-NZFZAXD NAIL, 6 OR MORE 05/06/2015 86409-CKYSMKO NAIL, 6 OR MORE 09/07/2015 18431-QGITPLI NAIL, 6 OR MORE 02/08/2016 98777-CREKCHS NAIL, 6 OR MORE 06/09/2016 18400-ZSRASFM NAIL, 6 OR MORE 11/02/2016 94055-XHYFYXT NAIL, 6 OR MORE 03/07/2017 55669-XQSXJZU NAIL, 6 OR MORE 05/15/2017 57418-SWYKJSA NAIL, 6 OR MORE 08/21/2017 91002-RJPDGAE NAIL, 6 OR MORE 11/23/2017 56006-ZJSGPEU NAIL, 6 OR MORE 02/05/2018 22280-NMMGFAG NAIL, 6 OR MORE 05/07/2018 34783-WKMOXHE NAIL, 6 OR MORE 08/20/2018 80096-JVKCTVU NAIL, 6 OR MORE 06/08/2011 56966-KGNWHSR NAIL, 6 OR MORE 09/07/2011 78185-RWDSZKH NAIL, 6 OR MORE 11/16/2011 34647-FCAHBBC NAIL, 6 OR MORE 02/01/2012 04139-SCJTJTJ NAIL, 6 OR MORE 04/11/2012 07949-AWOCLDW NAIL, 6 OR MORE 05/07/2012 47554-XSKHRPR NAIL, 6 OR MORE 07/11/2012 40574-YTEXBGL NAIL, 6 OR MORE 10/10/2012 01491-ZKIMTAS NAIL, 6 OR MORE 12/17/2012 25629-CESZUYD NAIL, 6 OR MORE 04/08/2013 91601-JPTGUXQ NAIL, 6 OR MORE 06/25/2013 57028-VWIEQVJ NAIL, 6 OR MORE 07/29/2013 98287-AUMPSMW NAIL, 6 OR MORE 09/24/2013 08614-BMRBKWY NAIL, 6 OR MORE 12/09/2013 63169-HJJABSD NAIL, 6 OR MORE 02/24/2014 72011-EGNQEEE NAIL, 6 OR MORE 11/19/2018 44741-RRZSRDT NAIL, 6 OR MORE 02/25/2019 17969-CDUWALE NAIL, 6 OR MORE 06/03/2019 73554-QBOINBO NAIL, 6 OR MORE 08/26/2019 13366-XVOGCAV NAIL, 6 OR MORE 03/04/2020 59616-Zeawizmg Plate 08/20/2018 23669-Mrirtfuk Plate 08/26/2024 24945-Drivywto Plate 03/01/2021 88935-Gjemyqzg Plate 06/21/2021 28866- Debride <25 sq cm 08/19/2021 09279- Debride <25 sq cm 10/11/2021 56597- Debride <25 sq cm 08/25/2022 46466- Debride <25 sq cm 06/21/2021 17559- Debride <25 sq cm 05/30/2024 54103- Debride <25 sq cm 12/14/2023 76345- Debride <25 sq cm 06/26/2023 70114- Debride <25 sq cm 03/04/2020 43789- Debride <25 sq cm 06/01/2020 20631 I&D ABSCESS- SIMPLE,SINGLE 024 , Z3807-LBXUA/INJECT, JOINT/BURSA 1 08/25/201265174,X7869-XKC TENDON SHEATH/LIGAMENT 0 11/25/2024 Next Appt Details Provider Name:Lani Ricketts , 06/09/2025 03:00:00 PM, [address] [place] [address], [phone], Insurance Providers Payer Name Payer Address Payer Phone Subscriber Number Group Number Insured Name Patient Relationship to Insured Coverage Start Date Coverage End Date Medicare National [employer]t [employer] [address] [place] [address] [id number] Lainey Floyd Self - patient is the insured 7 [employer] [facility] [address] [place] [address] [id number] Lainey Floyd Self - patient is the insured Medical (General) History Medical History History ICD Code chicken pox asthma Surgical History Surgery Date(Month/Year) appendectomy 1957 carpal tunnel release 04/10/2017 Left Knee replacement 02/02 carpal tunnel surgery 01/04 Hospitalization History Reason Date(Month/Year)
--- OUTSIDE RECORDS SUMMARY | 2025-06-05 19:00 | XMS_ITS | Clinical Summary ---
Author Organization [facility] Address [address] [place] [address] Phone Care Team Providers Care Personal Financial Planner Name Role Phone Yareli Lobato NP Primary [...] Department Care Team Description 04/15/2025 Transcribe Orders [facility] [address] [place] [address] [place] [address] Jennifer Kuhn Encounter for rehabilitation (Primary Dx) [...] file Insurance MEDICARE PART A & B [employer] SUPPLEMENT MEDICARE PART A & B [employer] SUPPLEMENT MEDICARE PART A & B [employer] SUPPLEMENT MEDICARE PART A & B [employer] MED[employer] SUPPLEMENT MEDICARE PART A & B [employer] SUPPLEMENT MEDICARE PART A & B [employer] SUPPLEMENT MEDICARE PART A & B MEDEX SUPPLEMENT MEDICARE PART A & B [employer] MED[employer] SUPPLEMENT MEDICARE PART A & B [employer] MEDEX SUPPLEMENT Care Teams Personal Financial Planner Relationship Specialty Start Date End Date Yareli Lobato NP [address] [place] [phone] PCP - General Nurse Practitioner 10/11/18 Additional Source Comments The information contained in this document represents components of the legal health record. It is not the complete legal health record.[facility]
--- OUTSIDE RECORDS SUMMARY | 2025-06-05 19:00 | XMS_ITS | Encounter Summary ---
Author Organization [facility] Address [address] [place] [phone] Phone Care Team Providers Care Field Supervisor Name Role Phone Yareli Lobato NURSING HOME PHYSICIAN Primary Care Provider + Reason for Referral * Physical Therapy (Routine) - Closed Specialty Diagnoses / Procedures Referred By Stu quijano Referred To Contact Physical Therapy Diagnoses Encounter for rehabilitation System, Provider Not In, [facility] [id number] [place] [address] Phone: tel: Referral ID Status Reason Start Date Expiration Date Visits Re quested Visits Authorized [id number] Closed 10/30/2018 08/13/2019 99 99 Encounter Details Date Type Department Care Team (Latest Contact Info) Description 10/11/2018 Transcribe Orders [facility] [address] [place] [phone] Yareli Lobato, NURSING HOME PHYSICIAN [address] [place] [address] Encounter for rehabilitation (Primary Dx) Social History [...] Diagnoses Orde r Schedule Ambulatory referral to [facility] Physical Therapy Outpatient Referral Routine Encounter for rehabilitation Ordered: 10/11/2018 documented as of this encounter Visit Diagnoses Diagnosis Encounter for rehabilitation- Primary documented in this encounter Care Teams Field Supervisor Relationship Specialty Start Date End Date Yareli Lobato NP [address] [place] [address] PCP - General Nurse Practitioner 10/11/18 documented as of this encounter Additional Source Comments The information contained in this document represents components of the legal health record. It is not the complete legal health record.[facility]
[2025-06-05 19:13] VITALS: BP 137/71; PULSE 78; RESP 16; TEMP 36.8; O2SAT 96
--- NOTE | 2025-06-05 20:13 | PC.NURSE ---
Took over care at 23:00, wound dressing applied, pt taken to CT Scan and x-ray taken at the bed side, provider into discuss plan of care.
--- NOTE | 2025-06-05 20:57 | PM.IMHP ---
History of Present Illness Date of Service: 06/05/25 Attending physician on admission: Kurt Ross Chief Complaint: fall Pt is an 85 yo female with a pmhx signficant for PAD, bronchiectasis, HTN, paroxysmal a fib on xarelto, GERD, asthma/COPD overlap, and class 1 obesity, who presented to the ED due to a mechanical fall with HS and severe skin tears. the pt states that she tripped over her feet and was not feeling SOB, dizziness or chest pain. she has been going to PT for hip bursitis and her son notes that he does not feel that she can ambulate safely at home. she lives in a 2 story home and he is concerned for her safety at home and the severe skin tears on her legs and L arm. the pt is complaining of L wrist pain, 10/10, left knee pain and L shoulder pain. no headache, visual changes or confusion. she has a chronic cough, which is at baseline. Review of Systems Constitutional: Constitutional: Denies body ache(s), Denies chills, Denies fatigue, Denies fever(s) and Denies headache(s) Eyes: Eyes: Denies change in vision ENT: Denies headache(s), Denies nasal congestion, Denies nasal discharge and Denies sore throat Cardiovascular: Cardiovascular: Denies chest pain, Denies rapid heart rate, Reports leg edema, Denies lightheadedness and Denies dyspnea Respiratory: Respiratory: Denies chest congestion, Reports cough, Denies dyspnea and Denies wheezing Gastrointestinal: Gastrointestinal: Denies abdominal pain, Denies diarrhea, Denies nausea and Denies vomiting Genitourinary: Genitourinary: Denies dysuria Musculoskeletal: Musculoskeletal: Reports as per HPI Integumentary/Breasts: Skin/Breast: Reports as per HPI Neurologic: Denies confusion and Denies headache(s) Psychiatric: Psychiatric: Denies confusion Endocrine: Endocrine: Denies fatigue Hematologic/Lymphatic: Hematologic/Lymphatic: Denies easy bleeding and Denies easy bruising Allergic/Immunologic: Allergic/Immunologic: Denies wheezing [facility] Medical History Rash Bronchiectasis Pseudomonal pneumonia Abnormal chest x-ray Statin intolerance Essential hypertension Atherosclerotic cardiovascular disease PAF (paroxysmal atrial fibrillation) Non-rheumatic aortic stenosis Murmur, heart GERD (gastroesophageal reflux disease) Cough Asthma-COPD overlap syndrome Bronchitis Family History Mother Breast cancer Father Heart attack Other Allergies Surgical History History of left knee replacement History of carpal tunnel release Social History Unable to assess alcohol history related to: Unknown Alcohol intake: former Comment: stiffness Patient Tobacco Use Status: Never used Tobacco Smoked in Last 30 Days: No Use of substances other than those prescribed or required for medical reasons: Unknown Advance Directives: No Advance Directives Information Provided: Yes Do you have a plan to hurt others: No Plan Meds Allergies Allergy/AdvReac Type Severity Reaction Status Date / Time atorvastatin AdvReac Severe muscle Verified 06/05/25 14:53 aches simvastatin AdvReac Severe Muscles Verified 06/05/25 14:53 Aches Active Medications: Current Medications Acetaminophen (Acetaminophen 325 Mg Tablet) 650 mg PO Q6H PRN PRN Reason: Pain, Mild 1-3,fever,headache Calcium Carbonate (Calcium Carbonate 750 Mg Tab.Chew) 750 mg PO Q4H PRN PRN Reason: Heartburn Magnesium Hydroxide (Milk Of Magnesia 30 Ml Oral.Susp) 30 ml PO DAILY PRN PRN Reason: Constipation Melatonin (Melatonin 3 Mg Tablet) 6 mg PO BEDTIME PRN PRN Reason: Insomnia Ondansetron HCl (Ondansetron Hcl 4 Mg/2 Ml Vial) 4 mg IVPUSH Q8H PRN PRN Reason: Nausea and Vomiting Oxycodone HCl (Oxycodone Hcl Immed Release 5 Mg Tablet) 5 mg PO Q6H PRN PRN Reason: Pain, Severe (Pain Scale 7-10) Rivaroxaban (Rivaroxaban 20 Mg Tablet) 20 mg PO DAILY@1700 RICHA Sodium Chloride (0.9 % Sodium Chloride Flush 3 Ml Syringe) 3 ml IVFLUSH QSHIFT RICHA Tramadol HCl (Tramadol Hcl 50 Mg Tablet) 50 mg PO Q6H PRN PRN Reason: Pain, Moderate(Pain Scale 4-6) Home Medications ?Medication ?Instructions ?Recorded ?Confirmed ?Last Taken ?Type cholecalciferol (vitamin D3) 25 25 mcg PO DAILY 06/10/20 06/05/25 06/05/25 History mcg (1,000 unit) capsule coenzyme Q10 75 mg capsule (Ultra 75 mg PO DAILY 05/16/22 06/05/25 06/05/25 History CoQ10) valsartan 160 mg tablet 160 mg PO DAILY 05/16/22 06/05/25 06/05/25 History nebulizers 01/23/23 03/04/25 Unknown History acetaminophen 500 mg tablet 1,000 mg PO Q6H PRN Pain 06/05/25 06/05/25 Unknown History gabapentin 300 mg capsule 300 mg PO TID 06/05/25 06/05/25 06/05/25 History metoprolol succinate 25 mg 12.5 mg PO DAILY 06/05/25 06/05/25 06/05/25 History tablet,extended release 24 hr (Toprol XL) rivaroxaban 20 mg tablet (Xarelto) 20 mg PO BEDTIME 06/05/25 06/05/25 06/04/25 History roflumilast 500 mcg tablet 500 mcg PO BEDTIME 06/05/25 06/05/25 06/04/25 History (Daliresp) sodium chloride 7 % for 4 ml inhalation BID 06/05/25 06/05/25 06/05/25 History nebulization vitamin B complex 1 tab PO DAILY 06/05/25 06/05/25 06/05/25 History Physical Exam Vital Signs and Narrative: Vital Signs: Last Vital Signs Temp 98.3 F 06/05/25 19:13 Pulse 78 06/05/25 19:13 Resp 16 06/05/25 19:13 BP 137/71 06/05/25 19:13 Pulse Ox 96 06/05/25 19:13 O2 Del Method Room Air 06/05/25 19:13 BMI result Body Mass Index 32.2 General: AOx3, no acute distress, seen with and son bedside Resp: CTA bilaterally CVS: S1, S2, RRR GI: +BS, NT, no distention Skin: Warm, dry. severe skin tear L aguero, R knee and LUE, did not uncover bandages but photos shared from pt's son and evaluated by ED provider Neuro: Cranial nerves II-XII grossly intact bilaterally. Motor grossly intact bilaterally Extremities: 1-2+ pitting edema, painful legs (chronic). Psych: Appropriate affect Const: General: No confusion Orientation/consciousness: No confusion Neuro: General: No confusion Results Labs 06/05/25 15:19 06/05/25 15:19 Labs: Laboratory Results - last 24 hr 06/05/25 15:19 MCV 93.3 MCH 31.7 MCHC 34.0 RDW 14.8 Plt Count 310 MPV 8.3 L Immature Gran % (Auto) 0.4 Neut % (Auto) 67.3 Lymph % (Auto) 20.1 Preston % (Auto) 10.5 Eos % (Auto) 1.4 Baso % (Auto) 0.3 Lymph # (Auto) 1.6 Preston # (Auto) 0.8 Eos # (Auto) 0.1 Baso # (Auto) 0.0 Abs Immat Gran (auto) 0.03 Absolute Neuts (auto) 5.3 Absolute Nucleated RBC 0.000 Nucleated RBC % (auto) 0.0 PT 14.6 H INR 1.3 H Anion Gap 10 L Estim Creat Clear Calc 55.8 Estimated GFR > 60 Random Glucose 147 H Calcium 8.7 D Total Bilirubin 0.3 Direct Bilirubin 0.1 AST 32 H ALT 18 Alkaline Phosphatase 75 Troponin I High Sens 3.2 Total Protein 6.1 L Albumin 3.7 Lipase 27 Imaging Radiologist's Impressions: Impressions Elbow X-Ray 06/05/25 16:03 IMPRESSION: No acute abnormality. Electronically signed by: Simon Cam MD 06/05/2025 04:46 PM EDT RP Forearm X-Ray 06/05/25 16:05 IMPRESSION: There is an acute fracture involving the distal diaphysis of the left ulna. Electronically signed by: Simon Cam MD 06/05/2025 04:43 PM EDT RP Wrist X-Ray 06/05/25 16:06 IMPRESSION: There is an acute fracture of the distal left ulnar diaphysis. 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 Suspected chondrocalcinosis. Electronically signed by: Simon Cam MD 06/05/2025 04:45 PM EDT RP Chest X-Ray 06/05/25 16:20 IMPRESSION: No acute disease. Left AC joint separation appears new since the prior study. Electronically signed by: Simon Cam MD 06/05/2025 04:48 PM EDT RP Assessment and Plan (1) Fall: Status: Acute (2) Skin tear of forearm without complication: Status: Acute (3) Skin tear of left lower leg without complication: Status: Acute (4) Fracture of left ulna: Status: Acute (5) Separation of left acromioclavicular joint: Status: Acute (6) Acute hyponatremia: Status: Acute Plan Pt is an 85 yo female with a pmhx signficant for PAD, bronchiectasis, HTN, paroxysmal a fib on xarelto, GERD, asthma/COPD overlap, and class 1 obesity, who presented to the ED due to a mechanical fall with HS and severe skin tears. mechanical fall with significant skin tears L ulnar fx and L AC separation - split and sling - ortho consult - pain management - PT eval - wound care consult weakness/physical deconditioning - echo due to pedal edema and weakness assess for CHF - PT eval as above anemia, normocytic - B12, folate, iron profile, OBS x1 acute hyponatremia - repeat BMP after IVF bronchiectasis/asthma/COPD - continue home regimen paroxysmal a fib, rate controlled - xarelto - continue rate control HTN - continue home therapies class 1 obesity - weight loss encouraged med rec pending full code VTE prophy: xarelto pt with mechanical fall, fractues, weakness and hyponatremia, requiring admission for at least 2 midnights stay for further evaluation and monitoring. Quality Stroke Does the patient have a stroke diagnosis?: No VTE Prior VTE?: No VTE Risk Level:: Medical - moderate - high VTE Device Contraindication: Treatment Not Indicated VTE Drug Contraindication: N/A - Med Ordered
--- NOTE | 2025-06-05 21:22 | PHA.MEDREC ---
Addendum entered by Milvia Senior RPh 06/05/25 21:47: [facility] reviewed Original Note: Pharmacy Consult ? Medication Reconciliation Pharmacy has completed the medication reconciliation. Spoke with pt and she confirmed her medications. Pt confirmed she no longer takes Advair and is now taking Trellegy one puff daily, she takes her Metoprolol 25mg tab 1/2 tab (12.5mg) daily; claims shows that was just changed 04/28 to 1 tab daily but pt not aware of that change and pt taking her Deliresp 500mg tab 1 tab (500mg) at bedtime.
[2025-06-05] MEDS: oxyCODONE HCl Immed Release 5 MG TABLET PO (21:25)
--- NOTE | 2025-06-05 21:27 | PC.NURSE ---
Provider into see pt, medicated for pain management. family at the bedside
--- NOTE | 2025-06-05 21:54 | MHC.EDTECH ---
Patient unable to do othro vitals due to leg wound and excessive bleeding
[2025-06-05 22:01] LABS: MANUAL DIFF FLAG NO
[2025-06-05 22:03] LABS: Hematocrit 28.2 % (37.0-47.0); Hemoglobin 9.2 g/dl (12.0-16.0); Imm Gran Abs Auto 0.02 X10*3/uL (0.00-0.03); Imm Gran Pct Auto 0.2 % (0.0-0.4); Lymphocytes Absolute Auto 1.6 X10*3/uL (1.2-4.9); Mean Corpuscular HGB Conc 32.6 g/dl (31.0-35.0); Mean Corpuscular Hemoglobin 31.0 pg (27.0-33.0); Mean Corpuscular Volume 94.9 fL (80.0-98.0); NRBC Abs Auto 0.000 X10*3/uL (0.0-0.012); NRBC Pct Auto 0.0 /100WBC (0.0-0.2); Platelet Count 298 X10*3/uL (160-400); Red Blood Count 2.97 X10*6/uL (4.20-5.50); White Blood Count 8.7 X10*3/uL (4.8-10.8)
[2025-06-05 22:14] VITALS: BP 108/34; PULSE 64; RESP 16; TEMP 36.9
[2025-06-05 22:18] LABS: Anion Gap 13 (12-20); Blood Urea Nitrogen 13 mg/dL (9-16); Calcium 8.5 mg/dL (8.4-10.2); Carbon Dioxide 20 mmol/L (22-29); Chloride 101 mmol/L (96-108); Creatinine Clr Calc Pharmacy 59.2; Estimated Glomerular Filt Rate > 60; Iron 38 mcg/dL (30-160); Percent Iron Saturation 17 % (15-50); Potassium 4.6 mmol/L (3.3-5.1); Sodium 129 mmol/L (135-145); Total Iron Binding Capacity 221 mcg/dL (228-428); Unsaturated Iron Binding 183 ug/dL
[2025-06-05 22:51] LABS: Folate 12.9 ng/mL (> or = 4.0); Vitamin B12 1108 pg/mL (200-900)
[2025-06-06] VITALS (7 sets, daily range): BP systolic 112–139; BP diastolic 46–58; PULSE 66–80; RESP 18–20; TEMP 36.3–36.7; O2SAT 90–99; BMI 37.7
--- NOTE | 2025-06-06 02:17 | PC.NURSE ---
pt unable to stand at this time, unable to do orthos, pt is sleeping at this time.
[2025-06-06 04:21] LABS: Hematocrit 24.3 % (37.0-47.0); Hemoglobin 8.1 g/dl (12.0-16.0); Mean Corpuscular HGB Conc 33.3 g/dl (31.0-35.0); Mean Corpuscular Hemoglobin 31.2 pg (27.0-33.0); Mean Corpuscular Volume 93.5 fL (80.0-98.0); NRBC Abs Auto 0.000 X10*3/uL (0.0-0.012); NRBC Pct Auto 0.0 /100WBC (0.0-0.2); Platelet Count 266 X10*3/uL (160-400); Red Blood Count 2.60 X10*6/uL (4.20-5.50); White Blood Count 7.6 X10*3/uL (4.8-10.8)
[2025-06-06 04:44] LABS: Anion Gap 11 (12-20); Blood Urea Nitrogen 12 mg/dL (9-16); Calcium 8.2 mg/dL (8.4-10.2); Carbon Dioxide 21 mmol/L (22-29); Chloride 101 mmol/L (96-108); Creatinine Clr Calc Pharmacy 66.4; Estimated Glomerular Filt Rate > 60; Potassium 4.5 mmol/L (3.3-5.1); Sodium 128 mmol/L (135-145)
--- NOTE | 2025-06-06 04:56 | HO.NURTONUR ---
Pt biba from home. PMH CHF, afib on xarelto, GERD, and COPD. Mechanical ground level fall at home. Witnessed by . Pt denied CP/SOB/dizziness. Has been seen by PT recently for left hip bursitis. Pt has complex skin tear to left knee/aguero. Only able to use 3 sutures above left knee d/t fragile skin. Rt knee skin tear. 5x5cm skin tear to left forearm. Fx of left ulna and left AC joint separation. Ortho consulted. Plan to admit for pain management, PT eval and wound care. Pt is alert and oriented x4. Neuro intact however cannot stand d/t extensive leg wounds. Afib on the monitor, controlled rate. BP stable. Afebrile. Sats mid90s on RA. Clear BBS. 20g RAC placed by EMS. Garcia catheter placed d/t immobility and urinary retention. Pt given PO pain meds with some effect. Able to sleep for a few hours over night. Family to come back to hospital today.
--- NOTE | 2025-06-06 07:00 | CA_ITS ---
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 Normal LV ejection fraction of 60-65% with pseudonormal filling pattern 2. Moderate biatrial enlargement 3. Moderate calcific aortic stenosis 4. Severe mitral annular calcification, mitral stenosis can not be entirely ruled out 5. Moderately elevated right ventricular systolic pressure 6. No gross pericardial effusion Findings Left Ventricle Normal left ventricular size, thickness, and systolic function. The visually estimated ejection fraction is between 60-65%. Spectral Doppler is indicative of a pseudonormal filling pattern. Right Ventricle Moderately increased right ventricular cavity size. There is normal right ventricular systolic function. Atria Moderate biatrial enlargement. There is no evidence of interatrial shunt. Aortic Valve The aortic valve was not well visualized. There is moderate calcification of the aortic valve. There is moderate aortic valve stenosis. The peak aortic gradient is 48 mmHg.The mean gradient is 26 mmHg. The aortic valve area is 1.24 cm2. There is no aortic valve regurgitation. Mitral Valve The mitral valve was not well visualized. There is moderate anterior and posterior mitral leaflet thickening. There is severe mitral annular calcification. There is no mitral valve regurgitation. Pulmonic Valve The pulmonic valve is likely normal. Tricuspid Valve Normal tricuspid valve structure. There is mild to moderate tricuspid valve regurgitation. Normal right atrial pressure. Moderate pulmonary hypertension is present. Great Vessels The aorta was not well visualized. The pulmonary artery was not well visualized. Venous The inferior vena cava is normal in size and collapses greater than 50% with inspiration. Pericardium/Pleural There is no evidence of pericardial effusion. Prior Study Comparison Changes noted compared to prior study dated: 12/15/2023. RV systolic pressure is elevated. Aortic stenosis is now moderate Measurements 2D Linear Measurements IVSd: 0.98 0.6-0.9/0.6-1.0 cm LVIDd: 3.21 3.9-5.3/4.2-5.9 cm LVIDd Index: 1.87 2.4-3.2/2.2-3.1 cm/m2 LVIDs: 2.33 2.0-3.6 cm LVPWd: 0.99 0.7-1.1 cm LA Diam: 3.80 2.7-3.8/3.0-4.0 cm LAIDs Index: 2.21 1.5-2.3 cm/m2 LV Mass: 110.49 67-162/88-224 g LV Mass Index: 64.24 43-95/49-115 g/m2 LVOT Diam: 1.90 3.0+(-)1.3 cm 2D Systolic Function EF Teich: 54.00 >55% Mitral Valve MV VTI: 0.41 MV Pk Bunny: 1.14 MV Mn Bunny: 0.77 MV Pk Grad: 5.00 MV Mn Grad: 3.00 MV Pk E: 1.04 MV PK A: 0.99 MV Decel Time: 243.00 E/A: 1.10 E'Lateral: 8.27 E'Medial: 7.94 E/E' Med: 13.10 E/E' Lat: 12.60 PHT: 71.00 MVA PHT: 3.10 MVA Continuity: 2.34 Decel Coamo: 4.29 Aortic Valve AoV Pk Bunny: 3.47 AoV Mn Bunny: 2.36 AoV VTI: 0.77 AoV Pk Grad: 48.00 Aov Mn Grad: 26.00 ELBERT Cont.VTI: 1.24 LVOT LVOT Pk Bunny: 1.39 LVOT Mn Bunny: 1.00 LVOT VTI: 0.34 LVOT Pk Grad: 8.00 LVOT Mn Grad: 5.00 LVOT Diam: 1.90 LVOT Area: 2.84 Diastolic Function MV Pk E: 1.04 MV Pk A: 0.99 E/A: 1.10 E'Medial: 7.94 E/E' Med: 13.10 E' Laterial: 8.27 E/E' Lat: 12.60 Right Ventricle TAPSE (mm): 28.60 Tricuspid Valve TR Pk Bunny: 3.60 TR Pk Grad: 52.00 RA Press: 3.00 RVSP: 55.00 Great Vessels Aorta Sinus of Valsalva: 2.60 2.0-3.5 cm Pulmonary Valve PV Pk Bunny: 1.03 Peak PV Grad: 4.00 Updated in Other Vendor System with Status of Final Alex Alvarado MD electronically signed on 06/06/2025 3:26:11 PM with status of Final
[2025-06-06] MEDS: oxyCODONE HCl Immed Release 5 MG TABLET PO (08:41)
[2025-06-06 08:48] LABS: Reticulocytes Absolute 0.054 X10*6/uL (0.026-0.095)
--- NOTE | 2025-06-06 08:55 | PM.CNOR ---
History of Present Illness HPI Consult date: 06/06/25 Chief complaint: fall, fractures, hyponatremia Narrative: Ms. Floyd is an 85-year-old female who presented to ED via EMS for evaluation after sustaining a mechanical fall at home. She has a past medical history significant for atrial fibrillation on Xarelto, GERD, asthma/COPD, PAD, in HTN. She reports that she stood up and turned to her left side very quick tripped on her own feet and fell down. She sustained multiple skin tears on her left forearm, left aguero, and right knee. X-rays obtained in the emergency department are significant for a left distal ulnar shaft fracture. She was placed into a short-arm volar splint and admitted to the medicine service. Review of Systems Review of Systems: Yes all other systems are reviewed and are negative PMF Past Medical History Medical History Rash Bronchiectasis Pseudomonal pneumonia Abnormal chest x-ray Statin intolerance Essential hypertension Atherosclerotic cardiovascular disease PAF (paroxysmal atrial fibrillation) Non-rheumatic aortic stenosis Murmur, heart GERD (gastroesophageal reflux disease) Cough Asthma-COPD overlap syndrome Bronchitis Family History Family History Mother Breast cancer Father Heart attack Other Allergies Surgical History Surgical History History of left knee replacement History of carpal tunnel release Social History Social History Household Members: Spouse Housing: House Do you presently have visiting nurse or other home services: No Unable to assess alcohol history related to: Unknown Alcohol intake: former Comment: stiffness Patient Tobacco Use Status: Never used Tobacco Smoked in Last 30 Days: No Use of substances other than those prescribed or required for medical reasons: Unknown Have you been hit, kicked, punched, or otherwise hurt by someone within the past year? If so, by whom?: No Do you feel safe in your current relationship?: Yes Is there a partner from a previous relationship who is making you feel unsafe now?: No Are you made to feel afraid or neglected: No Advance Directives: No Advance Directives Information Provided: Yes Do you have a plan to hurt others: No Plan Recently lost weight without trying: No Nutrition Risks: Dental problems Patient : No Meds Allergies Allergy/AdvReac Type Severity Reaction Status Date / Time atorvastatin AdvReac Severe muscle Verified 06/05/25 14:53 aches simvastatin AdvReac Severe Muscles Verified 06/05/25 14:53 Aches Active Medications: Current Medications Acetaminophen (Acetaminophen 325 Mg Tablet) 650 mg PO Q6H PRN PRN Reason: Pain, Mild 1-3,fever,headache Albuterol Sulfate (Albuterol Sulfate 90 Mcg 8 Gm Inhaler) 2 puff INHALE Q6H PRN PRN Reason: shortness of breath or wheezing Atorvastatin Calcium (Atorvastatin Calcium 40 Mg Tablet) 40 mg PO BEDTIME [facility] Azelastine HCl (Azelastine Hcl Nasal 137 Mcg/[place] 30 Ml) 2 spray NOSTRIL-B BID [facility] Calcium Carbonate (Calcium Carbonate 750 Mg Tab.Chew) 750 mg PO Q4H PRN PRN Reason: Heartburn Chlorhexidine Gluconate (Chlorhexidine Gluc Oral Rinse 15 Ml Mouthwash) 15 ml BUCCAL DAILY [facility] Flecainide Acetate (Flecainide Acetate 50 Mg Tablet) 50 mg PO BID [facility] Fluticasone Propionate (Fluticasone Propionate Nasal 16 Gm [place]) 2 spray NOSTRIL-B DAILY [facility] Fluticasone/Umeclidinium/Vilanterol (Fluticasone/Umeclidinium/Vilanterol 200/62.5/25 Blst.W.Dev) 1 puff INHALE RDAILY [facility] Gabapentin (Gabapentin 300 Mg Capsule) 300 mg PO TID [facility] Sodium Chloride (Ns) 1,000 mls @ 75 mls/hr IVCONT .[id number] [facility] Magnesium Hydroxide (Milk Of Magnesia 30 Ml Oral.Susp) 30 ml PO DAILY PRN PRN Reason: Constipation Melatonin (Melatonin 3 Mg Tablet) 6 mg PO BEDTIME PRN PRN Reason: Insomnia Metoprolol Succinate (Metoprolol Succinate Er 12.5 Mg Halftab.Er.24h) 12.5 mg PO DAILY [facility]; Protocol Multivitamins/Vitamin C (Multivitamin Tablet) 1 tab PO DAILY [facility] Non-Formulary Medication (Sodium Chloride) 4 ml INHALE BID [facility] Ondansetron HCl (Ondansetron Hcl 4 Mg/2 Ml Vial) 4 mg IVPUSH Q8H PRN PRN Reason: Nausea and Vomiting Oxycodone HCl (Oxycodone Hcl Immed Release 5 Mg Tablet) 5 mg PO Q6H PRN PRN Reason: Pain, Severe (Pain Scale 7-10) Last Admin: 06/06/25 08:41 Dose: 5 mg Rivaroxaban (Rivaroxaban 20 Mg Tablet) 20 mg PO DAILY@1700 [facility] Roflumilast (Roflumilast 500 Mcg Tablet) 500 mcg PO BEDTIME [facility] Sodium Chloride (0.9 % Sodium Chloride Flush 3 Ml Syringe) 3 ml IVFLUSH QSHIFT [facility] Last Admin: 06/06/25 05:46 Dose: Not Given Tramadol HCl (Tramadol Hcl 50 Mg Tablet) 50 mg PO Q6H PRN PRN Reason: Pain, Moderate(Pain Scale 4-6) Last Admin: 06/06/25 07:25 Dose: 50 mg Valsartan (Valsartan 160 Mg Tablet) 160 mg PO DAILY [facility]; Protocol Vitamin D (Cholecalciferol (Vitamin D3) 25 Mcg Tablet) 25 mcg PO DAILY [facility] Home Medications ?Medication ?Instructions ?Recorded ?Confirmed ?Last Taken ?Type cholecalciferol (vitamin D3) 25 25 mcg PO DAILY 06/10/20 06/05/25 06/05/25 History mcg (1,000 unit) capsule coenzyme Q10 75 mg capsule (Ultra 75 mg PO DAILY 05/16/22 06/05/25 06/05/25 History CoQ10) valsartan 160 mg tablet 160 mg PO DAILY 05/16/22 06/05/25 06/05/25 History nebulizers 01/23/23 03/04/25 Unknown History acetaminophen 500 mg tablet 1,000 mg PO Q6H PRN Pain 06/05/25 06/05/25 Unknown History gabapentin 300 mg capsule 300 mg PO TID 06/05/25 06/05/25 06/05/25 History metoprolol succinate 25 mg 12.5 mg PO DAILY 06/05/25 06/05/25 06/05/25 History tablet,extended release 24 hr (Toprol XL) rivaroxaban 20 mg tablet (Xarelto) 20 mg PO BEDTIME 06/05/25 06/05/25 06/04/25 History roflumilast 500 mcg tablet 500 mcg PO BEDTIME 10/06/05/25 06/04/25 History (Daliresp) sodium chloride 7 % for 4 ml inhalation BID 06/05/25 06/05/25 06/05/25 History nebulization vitamin B complex 1 tab PO DAILY 06/05/25 06/05/25 06/05/25 History Physical Exam Vital Signs: Vital Signs: Last Vital Signs Temp 98.4 F 06/05/25 22:14 Pulse 71 06/06/25 06:18 Resp 20 06/06/25 06:18 BP 112/51 L 06/06/25 06:18 Pulse Ox 96 06/06/25 06:18 O2 Del Method Room Air 06/06/25 06:18 BMI result Body Mass Index 37.7 Const: General: cooperative, healthy appearing and no acute distress Resp: Effort & Inspection: normal respiratory effort and able to speak in complete sentences Extrem: Other: Left hand: Volar splint is clean dry and intact. Patient is able to slightly move all digits. She reports sensation is intact. Capillary refill is brisk. Left knee bandage is clean dry and intact. Psych: Appearance: grossly normal Mental Status: mental status grossly normal Attitude: cooperative Results Labs 06/06/25 03:57 06/06/25 03:57 Labs: Abnormal lab results 06/05/25 06/05/25 06/06/25 Range/Units 15:19 21:50 03:57 RBC 3.12 L 2.97 L 2.60 L (4.20-5.50) X10*6/uL Hgb 9.9 L 9.2 L 8.1 L (12.0-16.0) g/dl Hct 29.1 L D 28.2 L 24.3 L (37.0-47.0) % MPV 8.3 L 8.5 L 8.4 L (9.4-12.3) fL Lymph % (Auto) 17.9 L (20-40) % Percent Retic 2.1 H (0.5-1.8) % Immature Retic Fraction 17.5 H (3.0-15.9) % PT 14.6 H (10.9-12.4) SEC INR 1.3 H (0.9-1.1) Sodium 129 L 129 L 128 L (135-145) mmol/L Carbon Dioxide 20 L 21 L (22-29) mmol/L Anion Gap 10 L 11 L (12-20) Random Glucose 147 H 118 H 122 H (60-115) mg/dL Calcium 8.2 L (8.4-10.2) mg/dL TIBC 221 L (228-428) mcg/dL AST 32 H (5-31) U/L Total Protein 6.1 L (6.5-8.0) g/dL Vitamin B12 1108 H (200-900) pg/mL H & H 06/05/25 06/05/25 06/06/25 Range/Units 15:19 21:50 03:57 Hgb 9.9 L 9.2 L 8.1 L (12.0-16.0) g/dl Hct 29.1 L D 28.2 L 24.3 L (37.0-47.0) % Coagulation 06/05/25 Range/Units 15:19 INR 1.3 H (0.9-1.1) All other labs normal. Assessment and Plan (1) Fracture of left ulna: Status: Acute (2) Skin tear of left lower leg without complication: Status: Acute Plan Ms. Floyd is an 85-year-old female who presented to ED via EMS for evaluation after sustaining a mechanical fall at home. She has a past medical history significant for atrial fibrillation on Xarelto, GERD, asthma/COPD, PAD, in HTN. She reports that she stood up and turned to her left side very quick tripped on her own feet and fell down. She sustained multiple skin tears on her left forearm, left aguero, and right knee. X-rays obtained in the emergency department are significant for a left distal ulnar shaft fracture. She was placed into a short-arm volar splint and admitted to the medicine service. Patient will remain in the volar splint with sling. Nonweightbearing left upper extremity. Recommend gentle range of motion of all digits to avoid stiffness and reduce edema. Elevation above heart level is recommended. Follow up outpatient with orthopedics. Procedures Date of Service Date of Service: 06/06/25
[2025-06-06 08:59] LABS: NT Pro B Type Natriuretic Pept 540.5 pg/mL (<300)
[2025-06-06] MEDS: oxyCODONE HCl Immed Release 5 MG TABLET 7.5 MG PO ×2 (10:19→22:58)
[2025-06-06] MEDS: Metoprolol Succinate ER 12.5 MG HALFTAB.ER.24H PO (10:20)
[2025-06-06 10:38] LABS: Osmolality, Serum 272 mosm/kg (281-305)
--- NOTE | 2025-06-06 10:59 | PM.EVENT ---
Event Note Date of Service: 06/06/25 Event Note: A 5-year-old female admitted to the hospital after a fall Patient has a left distal ulnar shaft fracture on x-ray Splinted in the ED No acute orthopedic intervention indicated at this time Remain in splint, keep clean, dry, intact at all times Nonweightbearing in the left upper extremity Follow-up outpatient upon discharge for further treatment Time Spent With Patient Time: Total time managing care of this patient today ____ minutes.
--- NOTE | 2025-06-06 11:01 | P.CONNP_ITS ---
History of Present Illness Reason for Consult Consult date: 06/06/25 Reason for consult: Hyponatremia Chief Complaint Chief complaint: fall, fractures, hyponatremia History of Present Illness Narrative: Lainey is a 85-year-old lady with past medical history of COPD, hypertension, atrial fibrillation, GERD, obesity, significant bilateral lower extremity venous insufficiency leading to chronic edema, erythema and pain in the lower extremities is admitted to the hospital following an episode of mechanical fall after tripping on 06/05/2025. 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 In the morning the usually eat a old male, in the afternoon salad and in the evening some sandwiches but she eats very less. Does not drink alcohol. Her sodium upon admission is noted to be 129, decreased to 128 today so nephrology is consulted Review of Systems Review of Systems Const : no body aches, no chills, no excessive sweating and no fatigue Eyes: no blurry vision and no change in vision ENT: no bleeding gums and no change in voice, no dizziness Card: no chest pain, no shortness of breath, no orthopnea, no PND Resp: no cough, no excessive phlegm production, no SOB GI: no abdominal pain and no nausea, no vomiting, + poor appetite : no hematuria, no urinary frequency and no difficulty voiding Musc: no abnormal gait, no bone pain, + in and erythema in bilateral lower extremities Neuro: no abnormal movements, no weakness Psych: no behavioral changes and no change in appetite Endo: no change in body appearance, no cold intolerance, no excessive sweating and no fatigue PMFSH Past Medical History Medical History Rash Bronchiectasis Pseudomonal pneumonia Abnormal chest x-ray Statin intolerance Essential hypertension Atherosclerotic cardiovascular disease PAF (paroxysmal atrial fibrillation) Non-rheumatic aortic stenosis Murmur, heart GERD (gastroesophageal reflux disease) Cough Asthma-COPD overlap syndrome Bronchitis Family History Family History Mother Breast cancer Father Heart attack Other Allergies Surgical History Surgical History History of left knee replacement History of carpal tunnel release Social History Social History Household Members: Spouse Housing: House Do you presently have visiting nurse or other home services: No Unable to assess alcohol history related to: Unknown Alcohol intake: former Comment: stiffness Patient Tobacco Use Status: Never used Tobacco Smoked in Last 30 Days: No Use of substances other than those prescribed or required for medical reasons: Unknown Have you been hit, kicked, punched, or otherwise hurt by someone within the past year? If so, by whom?: No Do you feel safe in your current relationship?: Yes Is there a partner from a previous relationship who is making you feel unsafe now?: No Are you made to feel afraid or neglected: No Advance Directives: No Advance Directives Information Provided: Yes Do you have a plan to hurt others: No Plan Recently lost weight without trying: No Nutrition Risks: Dental problems Patient : No Meds Allergies Allergy/AdvReac Type Severity Reaction Status Date / Time atorvastatin AdvReac Severe muscle Verified 06/05/25 14:53 aches simvastatin AdvReac Severe Muscles Verified 06/05/25 14:53 Aches Active Medications: Current Medications Acetaminophen (Acetaminophen 325 Mg Tablet) 650 mg PO Q6H PRN PRN Reason: Pain, Mild 1-3,fever,headache Albuterol Sulfate (Albuterol Sulfate 90 Mcg 8 Gm Inhaler) 2 puff INHALE Q6H PRN PRN Reason: shortness of breath or wheezing Azelastine HCl (Azelastine Hcl Nasal 137 Mcg/[place] 30 Ml) 2 spray NOSTRIL-B BID [facility] Last Admin: 06/06/25 10:25 Dose: Not Given Calcium Carbonate (Calcium Carbonate 750 Mg Tab.Chew) 750 mg PO Q4H PRN PRN Reason: Heartburn Chlorhexidine Gluconate (Chlorhexidine Gluc Oral Rinse 15 Ml Mouthwash) 15 ml BUCCAL DAILY [facility] Last Admin: 06/06/25 10:20 Dose: Not Given Flecainide Acetate (Flecainide Acetate 50 Mg Tablet) 50 mg PO BID [facility] Last Admin: 06/06/25 10:20 Dose: 50 mg Fluticasone Propionate (Fluticasone Propionate Nasal 16 Gm [place]) 2 spray NOSTRIL-B DAILY [facility] Last Admin: 06/06/25 10:25 Dose: Not Given Fluticasone/Umeclidinium/Vilanterol (Fluticasone/Umeclidinium/Vilanterol 200/62.5/25 Blst.W.Dev) 1 puff INHALE RDAILY [facility] Gabapentin (Gabapentin 300 Mg Capsule) 300 mg PO TID [facility] Last Admin: 06/06/25 10:20 Dose: 300 mg Sodium Chloride (Ns) 1,000 mls @ 75 mls/hr IVCONT .[id number] [facility] Last Admin: 06/06/25 10:19 Dose: 75 mls/hr Magnesium Hydroxide (Milk Of Magnesia 30 Ml Oral.Susp) 30 ml PO DAILY PRN PRN Reason: Constipation Melatonin (Melatonin 3 Mg Tablet) 6 mg PO BEDTIME PRN PRN Reason: Insomnia Metoprolol Succinate (Metoprolol Succinate Er 12.5 Mg Halftab.Er.24h) 12.5 mg PO DAILY [facility]; Protocol Last Admin: 06/06/25 10:20 Dose: 12.5 mg Multivitamins/Vitamin C (Multivitamin Tablet) 1 tab PO DAILY [facility] Last Admin: 06/06/25 10:20 Dose: 1 tab Patient Own Medication ( Rosuvastatin 10 Mg) 1 each PO BEDTIME [facility] Ondansetron HCl (Ondansetron Hcl 4 Mg/2 Ml Vial) 4 mg IVPUSH Q8H PRN PRN Reason: Nausea and Vomiting Oxycodone HCl (Oxycodone Hcl Immed Release 5 Mg Tablet) 7.5 mg PO Q6H PRN PRN Reason: Pain, Severe (Pain Scale 7-10) Last Admin: 06/06/25 10:19 Dose: 7.5 mg Rivaroxaban (Rivaroxaban 20 Mg Tablet) 20 mg PO DAILY@1700 [facility] Roflumilast (Roflumilast 500 Mcg Tablet) 500 mcg PO BEDTIME [facility] Sodium Chloride (0.9 % Sodium Chloride Flush 3 Ml Syringe) 3 ml IVFLUSH QSHIFT [facility] Last Admin: 06/06/25 10:10 Dose: Not Given Sodium Chloride (Sodium Chloride 3 % Inhalation 15 Ml Vial.Neb) 15 ml INHALE RBID [facility] Valsartan (Valsartan 160 Mg Tablet) 160 mg PO DAILY [facility]; Protocol Last Admin: 06/06/25 10:19 Dose: 160 mg Vitamin D (Cholecalciferol (Vitamin D3) 25 Mcg Tablet) 25 mcg PO DAILY [facility] Last Admin: 06/06/25 10:20 Dose: 25 mcg Home Medications ?Medication ?Instructions ?Recorded ?Confirmed ?Last Taken ?Type cholecalciferol (vitamin D3) 25 25 mcg PO DAILY 06/05/25 06/05/25 History mcg (1,000 unit) capsule coenzyme Q10 75 mg capsule (Ultra 75 mg PO DAILY 05/1606/05/25 06/05/25 History CoQ10) valsartan 160 mg tablet 160 mg PO DAILY 05/16/2206/05/25 History nebulizers 01/23/23 03/04/25 Unknown H istory acetaminophen 500 mg tablet 1,000 mg PO Q6H PRN Pain 1 06/05/25 Unknown History gabapentin 300 mg capsule 300 mg PO TID 06/05/2506/0506/05/25 History metoprolol succinate 25 mg 12.5 mg PO DAILY 06/05/25 1 06/05/25 History tablet,extended release 24 hr (Toprol XL) rivaroxaban 20 mg tablet (Xarelto) 20 mg PO BEDTIME 06/05/25 06/04/25 History roflumilast 500 mcg tablet 500 mcg PO BEDTIME 06/05/25 06/05/25 06/04/25 History (Daliresp) sodium chloride 7 % for 4 ml inhalation BID 06/05/25 06/05/25 06/05/25 History nebulization vitamin B complex 1 tab PO DAILY 06/05/2505/1506/05/25 History Physical Exam Vital Signs: Last Vital Signs Temp 98.1 F 06/06/25 08:00 Pulse 78 06/06/25 08:00 Resp 18 06/06/25 08:00 BP 134/56 L 06/06/25 08:00 Pulse Ox 99 06/06/25 08:00 O2 Del Method Room Air 06/06/25 08:00 BMI result Body Mass Index 37.7 General: not in any acute distress, ill appearing Nutritional Appearance: well nourished and overweight Eyes: appearance normal, both eyes and all related structures; Alignment and Position: alignment normal and position normal Neck: No lymphadenopathy, no thyromegaly Resp: bilateral air entry equal, no added sounds present Cardio: Regular rate, regular rhythm; Heart sounds: S1 normal heart sound present and S2 normal heart sound present GI: soft, nontender, no guarding, no hepatosplenomegaly : bladder normal to inspection, bladder normal to palpation, no renal angle tenderness Skin: no rashes or lesions noted and elasticity normal, erythema of bilateral lower extremities Neuro: alert, oriented x 3, moves all extremities, very tender to touch both the legs left more than right Results Lab Results 06/06/25 03:57 06/06/25 03:57 Lab results: Chemistry 06/05/25 06/05/25 06/06/25 15:19 21:50 03:57 Sodium 129 L 129 L 128 L Potassium 4.4 4.6 4.5 Carbon Dioxide 25 20 L 21 L BUN 14 13 12 Creatinine 0.69 0.65 0.58 Calcium 8.7 D 8.5 8.2 L Hematology 06/05/25 06/05/25 06/06/25 15:19 21:50 03:57 WBC 7.8 8.7 7.6 Hgb 9.9 L 9.2 L 8.1 L Plt Count [phone] Assessment and Plan (1) Acute hyponatremia: Status: Acute (2) Essential hypertension: Status: Acute Plan Acute hyponatremia: Sodium 128 this morning Possibly secondary to combination of poor solute intake leading to decreased water excretion, along with pain induced ADH secretion. We will get urine sodium, urine osmolality Free water restriction to less than 1.2 L in a day We will add salt tablets 1 g TID Needs good control of her pain Hypertension: Well-controlled, blood pressure is mild slightly increased after the salt tablets Continue valsartan 160 mg daily, metoprolol 12.5 mg daily Procedures Date of Service Date of Service: 06/06/25
--- NOTE | 2025-06-06 11:23 | MHC.CM.PN ---
IMM 06/05/25 S/P fall L Ulnar FX TIO LE skin tears. She lives with her . She is independent with all functional mobility. DME Cane, used PRN A HCP has been documented + scanned into the EMR. Copies provided to Patient. PCP Arielle PETERS PT eval rec is STR. Met with Pt+ family to discuss discharge plan. [facility]st choice is [facility] [place] in [place]. A referral has been sent. Clinical info has been sent. PT eval documentation is still pending. Patient will transport via BLS.
[2025-06-06] MEDS: Sodium Chloride Tab 1 GM TABLET PO ×2 (11:26→20:54)
--- NOTE | 2025-06-06 14:49 | HO.WOUND ---
Wound Consult: Initial 85 yr old female admitted to [facility] [place] on [place]05[place]25- See progress notes and H&P for detailed history. Wound consult placed for multiple skin tears after fall. Patient agreeable to assessment and photo documentation. Patient was pre-medicated for pain by direct care RN, see MAR. Daughter and at bedside. patient tolerated dressing change well, she was sleeping upon arrival and did wake with grimacing upon dressing removal. Patient with fall at home, noted by providers with multiple skin tears to left forearm, left forearm fx, put into short arm volar splint by ortho - dressing was not removed today. Left knee Right knee Etiology: Large skin tears- partial skin flaps remaining- viable appearing Measurements: see assessment Wound Bed: miost pink/red, adipose tissue in left knee Drainage / Odor: bloody drainage, clots noted to left knee Edges: ? open Raya wound: ? No Induration, Fluctuance or Warmth noted - bruising noted raya wound Pain: yes- tolerated dressing change with pre-medication by direct care RN Goals of Treatment: ? moist wound healing and atraumatic removal with hydro gel, cuticerin contact layer Right heel - intact red and blanching - heel foams applied Left heel - intact red and blanching - heel foams applied- pts daughter and reports that she gets splits in her heels at times Left posterior leg - area of intact deep purple- likely bruising Recommendations: 1. Turn and Reposition every 2 hours and as needed for patient comfort. Use pillows or wedges to support off loading positions. 2. Off Load all bony prominences with use of pillows and heel boots if needed. Apply Preventative foams where needed. 3. Monitor for incontinence and moisture control, use barrier creams when needed for prevention and treatment. 4. Provide adequate and supplemental nutrition. 5. Order or Continue low air loss mattress. 6. When applicable maintain blood glucose levels per Providers order. Bilateral knees: cleanse with saline, pat dry, apply skin prep raya wound, apply wound gel (hydrogel) to wound bed, cover with cuticerin oil emulsion dressing (nonadherent contact layer), cover with ABD pads, wrap with kerlix, change daily and PRN Bilateral Heels - Elevate heels off of bed surface with pillows. Float heels off of pillows. Apply skin prep allow to dry. Apply heel foam dressings, peel back and assess Q shift and change every 3-5 days and PRN. Re-consult wound care Nurse for wound deterioration or wound changes.
--- NOTE | 2025-06-06 15:33 | HO.PM.IMPN ---
Subjective Subjective Date of Service: 06/06/25 Interval History: c/o severe pain from skin tears wrist pain under control no LOC or lightheadedness around time of fall Review of Systems Review of Systems: Yes all other systems are reviewed and are negative Physical Exam Vital Signs: Vital Signs: Last Vital Signs Temp 98.1 F 06/06/25 08:00 Pulse 78 06/06/25 08:00 Resp 18 06/06/25 08:00 BP 134/56 L 06/06/25 08:00 Pulse Ox 99 06/06/25 08:00 O2 Del Method Room Air 06/06/25 08:00 BMI result Body Mass Index 37.7 Gen: in no acute distress HEENT: sclera anicteric, moist mucus membranes Neck: supple Lungs: clear to auscultation bilaterally Heart: regular rate and rhythm, no murmurs Abd: soft, non-tender, non-distended Ext: bilateral leg swelling, RUE in sling with forearm splint, distally NV intact Skin: venous insufficiency in legs, large skin tears on knees [reference made to Wound Care documentation] Neuro: alert and oriented x3, no focal findings Psych: appropriate affect Objective Data Active Medications Acetaminophen (Acetaminophen 325 Mg Tablet) 650 mg PO Q6H PRN PRN Reason: Pain, Mild 1-3,fever,headache Albuterol Sulfate (Albuterol Sulfate 90 Mcg 8 Gm Inhaler) 2 puff INHALE Q6H PRN PRN Reason: shortness of breath or wheezing Azelastine HCl (Azelastine Hcl Nasal 137 Mcg/[place] 30 Ml) 2 spray NOSTRIL-B BID [facility] Last Admin: 06/06/25 10:25 Dose: Not Given Documented By: BLANCA Non-Admin Reason: Med Not Available Calcium Carbonate (Calcium Carbonate 750 Mg Tab.Chew) 750 mg PO Q4H PRN PRN Reason: Heartburn Chlorhexidine Gluconate (Chlorhexidine Gluc Oral Rinse 15 Ml Mouthwash) 15 ml BUCCAL DAILY [facility] Last Admin: 06/06/25 10:20 Dose: Not Given Documented By: BLANCA Non-Admin Reason: Patient Refused Flecainide Acetate (Flecainide Acetate 50 Mg Tablet) 50 mg PO BID [facility] Last Admin: 06/06/25 10:20 Dose: 50 mg Documented By: BLANCA Fluticasone Propionate (Fluticasone Propionate Nasal 16 Gm [place]) 2 spray NOSTRIL-B DAILY [facility] Last Admin: 06/06/25 10:25 Dose: Not Given Documented By: BLANCA Non-Admin Reason: Med Not Available Fluticasone/Umeclidinium/Vilanterol (Fluticasone/Umeclidinium/Vilanterol 200/62.5/25 Blst.W.Dev) 1 puff INHALE RDAILY [facility] Last Admin: 06/06/25 11:37 Dose: Not Given Documented By: UZAIR Non-Admin Reason: Patient Asleep Gabapentin (Gabapentin 300 Mg Capsule) 300 mg PO TID [facility] Last Admin: 06/06/25 10:20 Dose: 300 mg Documented By: BLANCA Magnesium Hydroxide (Milk Of Magnesia 30 Ml Oral.Susp) 30 ml PO DAILY PRN PRN Reason: Constipation Melatonin (Melatonin 3 Mg Tablet) 6 mg PO BEDTIME PRN PRN Reason: Insomnia Metoprolol Succinate (Metoprolol Succinate Er 12.5 Mg Halftab.Er.24h) 12.5 mg PO DAILY [facility]; Protocol Last Admin: 06/06/25 10:20 Dose: 12.5 mg Documented By: BLANCA Multivitamins/Vitamin C (Multivitamin Tablet) 1 tab PO DAILY [facility] Last Admin: 06/06/25 10:20 Dose: 1 tab Documented By: BLANCA Patient Own Medication ( Rosuvastatin 10 Mg) 1 each PO BEDTIME [facility] Ondansetron HCl (Ondansetron Hcl 4 Mg/2 Ml Vial) 4 mg IVPUSH Q8H PRN PRN Reason: Nausea and Vomiting Oxycodone HCl (Oxycodone Hcl Immed Release 5 Mg Tablet) 7.5 mg PO Q6H PRN PRN Reason: Pain, Severe (Pain Scale 7-10) Last Admin: 06/06/25 10:19 Dose: 7.5 mg Documented By: BLANCA Rivaroxaban (Rivaroxaban 20 Mg Tablet) 20 mg PO DAILY@1700 [facility] Roflumilast (Roflumilast 500 Mcg Tablet) 500 mcg PO BEDTIME [facility] Sodium Chloride (0.9 % Sodium Chloride Flush 3 Ml Syringe) 3 ml IVFLUSH QSHIFT [facility] Last Admin: 06/06/25 10:10 Dose: Not Given Documented By: BLANCA Non-Admin Reason: IV Running Sodium Chloride (Sodium Chloride 3 % Inhalation 15 Ml Vial.Neb) 15 ml INHALE RBID [facility] Sodium Chloride (Sodium Chloride Tab 1 Gm Tablet) 1 gm PO TID [facility] Last Admin: 06/06/25 11:26 Dose: 1 gm Documented By: BLANCA Valsartan (Valsartan 160 Mg Tablet) 160 mg PO DAILY [facility]; Protocol Last Admin: 06/06/25 10:19 Dose: 160 mg Documented By: BLANCA Vitamin D (Cholecalciferol (Vitamin D3) 25 Mcg Tablet) 25 mcg PO DAILY [facility] Last Admin: 06/06/25 10:20 Dose: 25 mcg Documented By: BLANCA Labs 06/06/25 03:57 06/06/25 03:57 Labs: Laboratory Results - last 24 hr 06/05/25 06/05/25 06/06/25 15:19 21:50 03:57 MCV 93.3 94.9 93.5 MCH 31.7 31.0 31.2 MCHC 34.0 32.6 33.3 RDW 14.8 14.8 14.8 Plt Count 310 298 266 MPV 8.3 L 8.5 L 8.4 L Immature Gran % (Auto) 0.4 0.2 Neut % (Auto) 67.3 70.3 Lymph % (Auto) 20.1 17.9 L Graves % (Auto) 10.5 10.0 Eos % (Auto) 1.4 1.4 Baso % (Auto) 0.3 0.2 Lymph # (Auto) 1.6 1.6 Graves # (Auto) 0.8 0.9 Eos # (Auto) 0.1 0.1 Baso # (Auto) 0.0 0.0 Abs Immat Gran (auto) 0.03 0.02 Absolute Neuts (auto) 5.3 6.1 Absolute Nucleated RBC 0.000 0.000 0.000 Nucleated RBC % (auto) 0.0 0.0 0.0 Absolute Retic 0.054 Percent Retic 2.1 H Immature Retic Fraction 17.5 H Retic Hgb Equivalent 33.5 PT 14.6 H INR 1.3 H Anion Gap 10 L 13 11 L Estim Creat Clear Calc 55.8 59.2 66.4 Estimated GFR > 60 > 60 > 60 Random Glucose 147 H 118 H 122 H Osmolality Calcium 8.7 D 8.5 8.2 L Iron 38 TIBC 221 L % Saturation 17 Unsat Iron Binding 183 Total Bilirubin 0.3 Direct Bilirubin 0.1 AST 32 H ALT 18 Alkaline Phosphatase 75 Lactate Dehydrogenase 210 Troponin I High Sens 3.2 NT-Pro-B Natriuret Pep 540.5 H Total Protein 6.1 L Albumin 3.7 Lipase 27 Vitamin B12 1108 H Folate 12.9 TSH 0.98 Random Cortisol 5.7 Urine Osmolality Ur Random Sodium 06/06/25 06/06/25 06/06/25 10:30 10:30 21:50 MCV MCH MCHC RDW Plt Count MPV Immature Gran % (Auto) Neut % (Auto) Lymph % (Auto) Graves % (Auto) Eos % (Auto) Baso % (Auto) Lymph # (Auto) Graves # (Auto) Eos # (Auto) Baso # (Auto) Abs Immat Gran (auto) Absolute Neuts (auto) Absolute Nucleated RBC Nucleated RBC % (auto) Absolute Retic Percent Retic Immature Retic Fraction Retic Hgb Equivalent PT INR Anion Gap Estim Creat Clear Calc Estimated GFR Random Glucose Osmolality 272 L Calcium Iron TIBC % Saturation Unsat Iron Binding Total Bilirubin Direct Bilirubin AST ALT Alkaline Phosphatase Lactate Dehydrogenase Troponin I High Sens NT-Pro-B Natriuret Pep Total Protein Albumin Lipase Vitamin B12 Folate TSH Random Cortisol Urine Osmolality 557 Ur Random Sodium Cancelled 114.0 Assessment and Plan (1) Acute hyponatremia: Status: Acute Plan d2, 85yo F with PAD, bronchiectasis, HTN, pAF on rivaroxaban, GERD presenting after mechanical fall, found to have L ulnar fracture, L AC separation, severe skin tears, and hypoNa acute fracture of the distal left ulnar diaphysis - in splint, Ortho consulted, follow up in 2 wk for casting, no operative intervention indicated L AC separation - sling acute hypoNa - likely poor solute intake and ADH secretion from pain; Nephro consulted, started NaCl tabs, fluid restriction 1.5L/d, recheck BMP tomorrow pedal edema - likely due to venous insufficiency; TTE 06/06: 1. Normal LV ejection fraction of 60-65% with pseudonormal filling pattern 2. Moderate biatrial enlargement 3. Moderate calcific aortic stenosis 4. Severe mitral annular calcification, mitral stenosis can not be entirely ruled out 5. Moderately elevated right ventricular systolic pressure 6. No gross pericardial effusion severe skin tears - Wound Care: Bilateral knees: cleanse with saline, pat dry, apply skin prep raya wound, apply wound gel (hydrogel) to wound bed, cover with cuticerin oil emulsion dressing (nonadherent contact layer), cover with ABD pads, wrap with kerlix, change daily and PRN - pain control with oxycodone anemia, normocytic: B12/folate/iron normal, retic/LDH normal, likely anemia of chronic disease; will check FOBT bronchiectasis/asthma/COPD: roflumiliast, Trelegy, albuterol pAF: flecainide, metoprolol succinate, rivaroxaban HTN: metoprolol succinate, valsartan HLD: statin VTE ppx: rivaroxaban dispo: PT and I recommend STR In my clinical judgment, the patient requires continued inpatient hospitalization for the following reasons: hypoNa Total time managing care of this patient today: 45 minutes. Quality Stroke Does the patient have a stroke diagnosis?: No VTE Prior VTE?: No VTE Risk Level:: Medical - moderate - high VTE Device Contraindication: Treatment Not Indicated VTE Drug Contraindication: N/A - Med Ordered
--- NOTE | 2025-06-06 16:14 | PC.NURSE ---
pt too drowsy to take meds, daughter at bedside and patient didnt sleep all night and recieved morphine prior to dsg change. she wanted to make sure mom was comfortable but pt still too drowsy to recieve any other pain meds
[2025-06-06] MEDS: 0.9 % Sodium Chloride Flush 3 ML SYRINGE IVFLUSH (21:03)
[2025-06-06] MEDS: Azelastine HCl Nasal 137 MCG/Spray 30 ML 2 SPRAY NOSTRIL-B (21:06)
[2025-06-06] MEDS: Sodium Chloride 3 % Inhalation 15 ML VIAL.NEB INHALE (22:56)
[2025-06-07] VITALS (7 sets, daily range): BP systolic 98–121; BP diastolic 46–57; PULSE 73–88; RESP 14–20; TEMP 36.4–36.9; O2SAT 95–98
[2025-06-07] MEDS: oxyCODONE HCl Immed Release 5 MG TABLET 7.5 MG PO (06:32)
[2025-06-07 07:03] LABS: Anion Gap 11 (12-20); Blood Urea Nitrogen 11 mg/dL (9-16); Calcium 8.4 mg/dL (8.4-10.2); Carbon Dioxide 24 mmol/L (22-29); Chloride 98 mmol/L (96-108); Creatinine Clr Calc Pharmacy 63.5; Estimated Glomerular Filt Rate > 60; Potassium 4.6 mmol/L (3.3-5.1); Sodium 128 mmol/L (135-145)
[2025-06-07 07:05] LABS: Hematocrit 23.9 % (37.0-47.0); Hemoglobin 7.8 g/dl (12.0-16.0); Mean Corpuscular HGB Conc 32.6 g/dl (31.0-35.0); Mean Corpuscular Hemoglobin 31.0 pg (27.0-33.0); Mean Corpuscular Volume 94.8 fL (80.0-98.0); NRBC Abs Auto 0.000 X10*3/uL (0.0-0.012); NRBC Pct Auto 0.0 /100WBC (0.0-0.2); Platelet Count 283 X10*3/uL (160-400); Red Blood Count 2.52 X10*6/uL (4.20-5.50); White Blood Count 8.9 X10*3/uL (4.8-10.8)
[2025-06-07] MEDS: Sodium Chloride 3 % Inhalation 15 ML VIAL.NEB INHALE ×2 (07:48→19:21)
[2025-06-07] MEDS: 0.9 % Sodium Chloride Flush 3 ML SYRINGE IVFLUSH (08:44)
[2025-06-07] MEDS: Sodium Chloride Tab 1 GM TABLET PO (09:33)
--- NOTE | 2025-06-07 10:34 | P.PNIM_ITS ---
Subjective Subjective Date of Service: 06/07/25 Interval History: family at bedside pt sleepy; concern for oversedation from oxycodone but she c/o severe pain in L wrist; skin tears less painful Na unchanged chronic cough from bronchiectasis Review of Systems Review of Systems: Yes all other systems are reviewed and are negative Physical Exam 2 Vital Signs: Vital Signs: Last Vital Signs Temp 98.5 F 06/07/25 07:46 Pulse 88 06/07/25 07:54 Resp 18 06/07/25 07:54 BP 98/49 L 06/07/25 07:46 Pulse Ox 97 06/07/25 07:46 O2 Del Method Nasal Cannula 06/07/25 07:46 O2 Flow Rate 2 06/07/25 07:46 BMI result Body Mass Index 37.7 Gen: sleepy but arousable HEENT: sclera anicteric, moist mucus membranes Neck: supple Lungs: clear to auscultation bilaterally, wet cough Heart: regular rate and rhythm, no murmurs Abd: soft, non-tender, non-distended Ext: bilateral leg swelling [chronic], RUE in sling with forearm splint, distally NV intact Skin: venous insufficiency in legs, large skin tears on knees [reference made to Wound Care documentation] Neuro: sleepy but arousable, oriented, no focal findings Psych: appropriate affect Objective Data Active Medications Acetaminophen (Acetaminophen 325 Mg Tablet) 650 mg PO Q6H PRN PRN Reason: Pain, Mild 1-3,fever,headache Albuterol Sulfate (Albuterol Sulfate 90 Mcg 8 Gm Inhaler) 2 puff INHALE Q6H PRN PRN Reason: shortness of breath or wheezing Azelastine HCl (Azelastine Hcl Nasal 137 Mcg/[place] 30 Ml) 2 spray NOSTRIL-B BID [facility] Last Admin: 06/06/25 21:06 Dose: 2 spray Documented By: SAMMIE Calcium Carbonate (Calcium Carbonate 750 Mg Tab.Chew) 750 mg PO Q4H PRN PRN Reason: Heartburn Chlorhexidine Gluconate (Chlorhexidine Gluc Oral Rinse 15 Ml Mouthwash) 15 ml BUCCAL DAILY [facility] Last Admin: 06/07/25 09:39 Dose: Not Given Documented By: RIKA Non-Admin Reason: Patient Refused Flecainide Acetate (Flecainide Acetate 50 Mg Tablet) 50 mg PO BID [facility] Last Admin: 06/07/25 09:40 Dose: 50 mg Documented By: RIKA Fluticasone Propionate (Fluticasone Propionate Nasal 16 Gm [place]) 2 spray NOSTRIL-B DAILY [facility] Last Admin: 06/06/25 10:25 Dose: Not Given Documented By: BLANCA Non-Admin Reason: Med Not Available Fluticasone/Umeclidinium/Vilanterol (Fluticasone/Umeclidinium/Vilanterol 200/62.5/25 Blst.W.Dev) 1 puff INHALE RDAILY [facility] Last Admin: 06/06/25 11:37 Dose: Not Given Gabapentin (Gabapentin 300 Mg Capsule) 300 mg PO TID [facility] Last Admin: 06/07/25 09:34 Dose: 300 mg Documented By: RIKA Acetaminophen (Ofirmev) 1,000 mg in 100 mls @ 400 mls/hr IV Q6H [facility] Stop: 06/08/25 04:29 Magnesium Hydroxide (Milk Of Magnesia 30 Ml Oral.Susp) 30 ml PO DAILY PRN PRN Reason: Constipation Melatonin (Melatonin 3 Mg Tablet) 6 mg PO BEDTIME PRN PRN Reason: Insomnia Metoprolol Succinate (Metoprolol Succinate Er 12.5 Mg Halftab.Er.24h) 12.5 mg PO DAILY [facility]; Protocol Last Admin: 06/07/25 09:42 Dose: Not Given Documented By: RIKA Non-Admin Reason: Patient Refused Multivitamins/Vitamin C (Multivitamin Tablet) 1 tab PO DAILY [facility] Last Admin: 06/07/25 09:38 Dose: Not Given Documented By: RIKA Non-Admin Reason: Patient Refused Patient Own Medication ( Rosuvastatin 10 Mg) 1 each PO BEDTIME [facility] Ondansetron HCl (Ondansetron Hcl 4 Mg/2 Ml Vial) 4 mg IVPUSH Q8H PRN PRN Reason: Nausea and Vomiting Oxycodone HCl (Oxycodone Hcl Immed Release 5 Mg Tablet) 2.5 mg PO Q4H PRN PRN Reason: Pain, Severe (Pain Scale 7-10) Rivaroxaban (Rivaroxaban 20 Mg Tablet) 20 mg PO DAILY@1700 [facility] Last Admin: 06/06/25 16:14 Dose: Not Given Documented By: BLANCA Non-Admin Reason: too drowsy Roflumilast (Roflumilast 500 Mcg Tablet) 500 mcg PO BEDTIME [facility] Last Admin: 06/06/25 20:54 Dose: 500 mcg Documented By: SAMMIE Sodium Chloride (0.9 % Sodium Chloride Flush 3 Ml Syringe) 3 ml IVFLUSH QSHIFT [facility] Last Admin: 06/07/25 08:44 Dose: 3 ml Documented By: RIKA Sodium Chloride (Sodium Chloride 3 % Inhalation 15 Ml Vial.Neb) 15 ml INHALE RBID [facility] Last Admin: 06/07/25 07:48 Dose: 15 ml Documented By: ANUPAM Sodium Chloride (Sodium Chloride Tab 1 Gm Tablet) 2 gm PO TID RICHA Urea (Urea 15 Gm Powder) 15 gm PO TID [facility] Valsartan (Valsartan 160 Mg Tablet) 160 mg PO DAILY [facility]; Protocol Last Admin: 06/07/25 09:32 Dose: 160 mg Documented By: RIKA Vitamin D (Cholecalciferol (Vitamin D3) 25 Mcg Tablet) 25 mcg PO DAILY [facility] Last Admin: 06/07/25 09:38 Dose: Not Given Documented By: RIKA Non-Admin Reason: Patient Refused Labs 06/07/25 05:21 06/07/25 05:21 Labs: Laboratory Results - last 24 hr 06/05/25 06/06/25 06/06/25 21:50 10:30 10:30 MCV MCH MCHC RDW Plt Count MPV Absolute Nucleated RBC Nucleated RBC % (auto) Anion Gap Estim Creat Clear Calc Estimated GFR Random Glucose Osmolality Calcium Random Cortisol 5.7 Urine Osmolality 557 Ur Random Sodium Cancelled 114.0 Urine Creatinine 74.48 06/06/25 06/07/25 21:50 05:21 MCV 94.8 MCH 31.0 MCHC 32.6 RDW 14.8 Plt Count 283 MPV 8.8 L Absolute Nucleated RBC 0.000 Nucleated RBC % (auto) 0.0 Anion Gap 11 L Estim Creat Clear Calc 63.5 Estimated GFR > 60 Random Glucose 96 Osmolality 272 L Calcium 8.4 Random Cortisol Urine Osmolality Ur Random Sodium Urine Creatinine Assessment and Plan (1) Acute hyponatremia: Status: Acute Plan d3, 85yo F with PAD, bronchiectasis, HTN, pAF on rivaroxaban, GERD presenting after mechanical fall, found to have L ulnar fracture, L AC separation, severe skin tears, and hypoNa acute hypoNa - likely poor solute intake and ADH secretion from pain; Nephro consulted, started NaCl tabs, fluid restriction 1.5L/d, added urea today, recheck BMP tomorrow normocytic anemia - ?chronic inflammation. check FOBT; recheck H+H tomorrow and T+S, if Hb <7 needs transfusion acute fracture of the distal left ulnar diaphysis - in splint, Ortho consulted, follow up in 2 wk for casting, no operative intervention indicated. for pain control will give 1 dose ketorolac then 24h of IV APAP; reduce oxycodone dose due to oversedation L AC separation - sling severe skin tears - Wound Care: Bilateral knees: cleanse with saline, pat dry, apply skin prep raya wound, apply wound gel (hydrogel) to wound bed, cover with cuticerin oil emulsion dressing (nonadherent contact layer), cover with ABD pads, wrap with kerlix, change daily and PRN pedal edema - likely due to venous insufficiency; TTE 06/06: 1. Normal LV ejection fraction of 60-65% with pseudonormal filling pattern 2. Moderate biatrial enlargement 3. Moderate calcific aortic stenosis 4. Severe mitral annular calcification, mitral stenosis can not be entirely ruled out 5. Moderately elevated right ventricular systolic pressure 6. No gross pericardial effusion bronchiectasis/asthma/COPD: roflumiliast, Trelegy, albuterol; add IS + Aerobika pAF: flecainide, metoprolol succinate, rivaroxaban HTN: metoprolol succinate, valsartan HLD: statin VTE ppx: rivaroxaban dispo: PT and I recommend STR In my clinical judgment, the patient requires continued inpatient hospitalization for the following reasons: hypoNa, anemia Total time managing care of this patient today: 45 minutes. Quality Stroke Does the patient have a stroke diagnosis?: No VTE Prior VTE?: No VTE Risk Level:: Medical - moderate - high VTE Device Contraindication: Treatment Not Indicated VTE Drug Contraindication: N/A - Med Ordered
--- NOTE | 2025-06-07 10:39 | MHC.CM.PN ---
CM MET W/FAMILY PER REQUEST, FAMILY MAY WANT REF [facility] HOWEVER WANT TO WAIT FOR [facility] TO RESPOND AFTER W/E. PER MD PT WILL REMAIN INPT THROUGH W/E, CM WILL CONT TO FOLLOW.
[2025-06-07] MEDS: Fluticasone/Umeclidinium/Vilanterol 200/62.5/25 BLST.W.DEV 1 PUFF INHALE (11:17)
[2025-06-07 11:24] LABS: Ferritin 179 ng/mL (10-250)
--- NOTE | 2025-06-07 12:56 | P.PNNP_ITS ---
Subjective Subjective Date of Service: 06/07/25 Interval history: Sodium remains unchanged Urine sodium 114, urine osmoles 557 suggestive of SIADH Physical Exam 2 Vital Signs: Vital Signs: Last Vital Signs Temp 98.5 F 06/07/25 07:46 Pulse 75 06/07/25 11:19 Resp 20 06/07/25 11:19 BP 98/49 L 06/07/25 07:46 Pulse Ox 97 06/07/25 07:46 O2 Del Method Nasal Cannula 06/07/25 07:46 O2 Flow Rate 2 06/07/25 07:46 BMI result Body Mass Index 37.7 General: not in any acute distress, ill appearing Nutritional Appearance: well nourished and obese Eyes: appearance normal, both eyes and all related structures; Alignment and Position: alignment normal and position normal Neck: No lymphadenopathy, no thyromegaly Resp: bilateral air entry equal, no added sounds present Cardio: Regular rate, regular rhythm; Heart sounds: S1 normal heart sound present and S2 normal heart sound present GI: soft, nontender, no guarding, no hepatosplenomegaly : bladder normal to inspection, bladder normal to palpation, no renal angle tenderness Skin: no rashes or lesions noted and elasticity normal, rashes in bilateral lower extremities Neuro: alert, oriented x 3, moves all extremities Objective Data Labs 06/07/25 05:21 06/07/25 05:21 Labs: Laboratory Results - last 24 hr 06/06/25 06/07/25 10:30 05:21 WBC 8.9 RBC 2.52 L Hgb 7.8 L Hct 23.9 L MCV 94.8 MCH 31.0 MCHC 32.6 RDW 14.8 Plt Count 283 MPV 8.8 L Absolute Nucleated RBC 0.000 Nucleated RBC % (auto) 0.0 Sodium 128 L Potassium 4.6 Chloride 98 Carbon Dioxide 24 Anion Gap 11 L BUN 11 Creatinine 0.66 Estim Creat Clear Calc 63.5 Estimated GFR > 60 Random Glucose 96 Calcium 8.4 Ferritin 179 Urine Creatinine 74.48 Procedures Date of Service Date of Service: 06/07/25 Assessment & Plan Assessment and plan (1) SIADH (syndrome of inappropriate ADH production): Status: Acute (2) Essential hypertension: Status: Acute Plan Acute hyponatremia: Urine sodium 114, urine osmoles 557 suggesting hyponatremia secondary to SIADH possibly pain induced; she also has poor solute intake leading to decreased water excretion. Given very high urine osmoles she needs more stricter free water restrictions. We will increase the salt tablets to 2 g TID and also we will add urea tablets. If the blood pressures are more better can add some Lasix to decrease the urine osmoles and free water excretion. Hypertension: On the lower side Can withhold valsartan 160 mg daily for now, continue metoprolol 12.5 mg daily if systolics are above 100 given her history atrial fibrillation Time Spent With Patient Time: Total time managing care of this patient today ____ minutes. Progress Note: Quality Stroke Does the patient have a stroke diagnosis?: No
[2025-06-07] MEDS: Sodium Chloride Tab 1 GM TABLET 2 GM PO ×2 (15:19→21:54)
[2025-06-07] MEDS: Azelastine HCl Nasal 137 MCG/Spray 30 ML 2 SPRAY NOSTRIL-B (21:56)
[2025-06-08] VITALS (7 sets, daily range): BP systolic 101–118; BP diastolic 46–56; PULSE 77–103; RESP 15–20; TEMP 36.4–37.1; O2SAT 94–98
[2025-06-08] MEDS: 0.9 % Sodium Chloride Flush 3 ML SYRINGE IVFLUSH ×3 (00:35→17:14)
[2025-06-08] MEDS: oxyCODONE HCl Immed Release 5 MG TABLET 2.5 MG PO ×2 (06:26→11:30)
[2025-06-08 06:35] LABS: Hematocrit 22.9 % (37.0-47.0); Hemoglobin 7.7 g/dl (12.0-16.0); Mean Corpuscular HGB Conc 33.6 g/dl (31.0-35.0); Mean Corpuscular Hemoglobin 31.6 pg (27.0-33.0); Mean Corpuscular Volume 93.9 fL (80.0-98.0); NRBC Abs Auto 0.000 X10*3/uL (0.0-0.012); NRBC Pct Auto 0.0 /100WBC (0.0-0.2); Platelet Count 298 X10*3/uL (160-400); Red Blood Count 2.44 X10*6/uL (4.20-5.50); White Blood Count 9.9 X10*3/uL (4.8-10.8)
[2025-06-08 06:48] LABS: Anion Gap 10 (12-20); Blood Urea Nitrogen 27 mg/dL (9-16); Calcium 8.4 mg/dL (8.4-10.2); Carbon Dioxide 24 mmol/L (22-29); Chloride 100 mmol/L (96-108); Creatinine Clr Calc Pharmacy 53.7; Estimated Glomerular Filt Rate > 60; Potassium 4.2 mmol/L (3.3-5.1); Sodium 130 mmol/L (135-145)
[2025-06-08] MEDS: Sodium Chloride 3 % Inhalation 15 ML VIAL.NEB INHALE ×2 (08:20→20:19)
[2025-06-08] MEDS: Fluticasone/Umeclidinium/Vilanterol 200/62.5/25 BLST.W.DEV 1 PUFF INHALE (08:20)
[2025-06-08] MEDS: Sodium Chloride Tab 1 GM TABLET 2 GM PO ×2 (09:25→15:25)
--- NOTE | 2025-06-08 11:18 | P.PNNP_ITS ---
Subjective Subjective Date of Service: 06/08/25 Interval history: Sodium improving, up to 130 this morning Physical Exam 2 Vital Signs: Vital Signs: Last Vital Signs Temp 97.8 F 06/08/25 07:38 Pulse 79 06/08/25 08:22 Resp 18 06/08/25 08:22 BP 101/46 L 06/08/25 07:38 Pulse Ox 96 06/08/25 07:38 O2 Del Method Room Air 06/08/25 07:38 O2 Flow Rate 2 06/07/25 15:48 BMI result Body Mass Index 37.7 General: not in any acute distress, ill appearing Nutritional Appearance: well nourished and overweight Eyes: appearance normal, both eyes and all related structures; Alignment and Position: alignment normal and position normal Neck: No lymphadenopathy, no thyromegaly Resp: bilateral air entry equal, no added sounds present Cardio: Regular rate, regular rhythm; Heart sounds: S1 normal heart sound present and S2 normal heart sound present GI: soft, nontender, no guarding, no hepatosplenomegaly : bladder normal to inspection, bladder normal to palpation, no renal angle tenderness Skin: no rashes or lesions noted and elasticity normal, significant erythema of bilateral lower extremities, chronic edema in lower extremities Neuro: alert, oriented x 3, moves all extremities Objective Data Labs 06/08/25 05:47 06/08/25 05:47 Labs: Laboratory Results - last 24 hr 06/07/25 06/08/25 05:21 05:47 WBC 9.9 RBC 2.44 L Hgb 7.7 L Hct 22.9 L MCV 93.9 MCH 31.6 MCHC 33.6 RDW 14.7 Plt Count 298 MPV 8.6 L Absolute Nucleated RBC 0.000 Nucleated RBC % (auto) 0.0 Sodium 130 L Potassium 4.2 Chloride 100 Carbon Dioxide 24 Anion Gap 10 L BUN 27 H Creatinine 0.78 Estim Creat Clear Calc 53.7 Estimated GFR > 60 Random Glucose 103 Calcium 8.4 Ferritin 179 Blood Type O Positive Antibody Screen NEGATIVE Procedures Date of Service Date of Service: 06/08/25 Assessment & Plan Assessment and plan (1) Essential hypertension: Status: Acute (2) SIADH (syndrome of inappropriate ADH production): Status: Acute Plan Acute hyponatremia: Urine sodium 114, urine osmoles 557 suggesting hyponatremia secondary to SIADH possibly pain induced; she also has poor solute intake leading to decreased water excretion. Given very high urine osmoles she needs strict free water restrictions. Sodium improved from 128 to 130; Continue salt tablets 2 g TID and urea tablets. If the sodium decreases or if patient becomes hypotensive can add some Lasix to decrease the urine osmoles and increase free water excretion. Hypertension: On the lower side Can withhold valsartan 160 mg daily for now, continue metoprolol 12.5 mg daily if systolics are above 100 given her history atrial fibrillation Time Spent With Patient Time: Total time managing care of this patient today ____ minutes. Progress Note: Quality Stroke Does the patient have a stroke diagnosis?: No
--- NOTE | 2025-06-08 13:40 | P.PNIM_ITS ---
Subjective Subjective Date of Service: 06/08/25 Interval History: Pain control adequate with adjustment of oxycodone dose. Much more alert Review of Systems Denies chest pain Denies shortness of breath Admits nausea without vomiting or diarrhea Admits right-sided back pain (present prior to admission) Denies fever chills Physical Exam 2 Vital Signs: Vital Signs: Last Vital Signs Temp 97.8 F 06/08/25 07:38 Pulse 79 06/08/25 08:22 Resp 18 06/08/25 08:22 BP 101/46 L 06/08/25 07:38 Pulse Ox 96 06/08/25 07:38 O2 Del Method Room Air 06/08/25 07:38 O2 Flow Rate 2 06/07/25 15:48 BMI result Body Mass Index 37.7 Const: Other: Awake alert no acute distress Resp: Other: Scattered expiratory wheezes upper angulo consistent with bronchiectasis Cardio: Other: No S4; positive S1-S2; no S3 murmurs rubs or gallops GI: Other: Soft nontender nondistended normoactive bowel sounds Extrem: Other: No edema bilaterally. Dressings on bilateral lower extremities (please see wound care notes for details) Objective Data Active Medications Acetaminophen (Acetaminophen 325 Mg Tablet) 650 mg PO Q6H PRN PRN Reason: Pain, Mild 1-3,fever,headache Albuterol Sulfate (Albuterol Sulfate 90 Mcg 8 Gm Inhaler) 2 puff INHALE Q6H PRN PRN Reason: shortness of breath or wheezing Azelastine HCl (Azelastine Hcl Nasal 137 Mcg/[place] 30 Ml) 2 spray NOSTRIL-B BID [facility] Last Admin: 06/08/25 09:22 Dose: Not Given Documented By: RIKA Non-Admin Reason: Patient Refused Calcium Carbonate (Calcium Carbonate 750 Mg Tab.Chew) 750 mg PO Q4H PRN PRN Reason: Heartburn Chlorhexidine Gluconate (Chlorhexidine Gluc Oral Rinse 15 Ml Mouthwash) 15 ml BUCCAL DAILY [facility] Last Admin: 06/08/25 09:26 Dose: Not Given Documented By: RIKA Non-Admin Reason: Patient Refused Flecainide Acetate (Flecainide Acetate 50 Mg Tablet) 50 mg PO BID [facility] Last Admin: 06/08/25 09:23 Dose: 50 mg Documented By: RIKA Fluticasone Propionate (Fluticasone Propionate Nasal 16 Gm [place]) 2 spray NOSTRIL-B DAILY [facility] Last Admin: 06/08/25 09:32 Dose: Not Given Documented By: RIKA Non-Admin Reason: Patient Refused Fluticasone/Umeclidinium/Vilanterol (Fluticasone/Umeclidinium/Vilanterol 200/62.5/25 Blst.W.Dev) 1 puff INHALE RDAILY [facility] Last Admin: 06/08/25 08:20 Dose: 1 puff Documented By: ANUPAM Gabapentin (Gabapentin 300 Mg Capsule) 300 mg PO TID [facility] Last Admin: 06/08/25 09:23 Dose: 300 mg Documented By: RIKA Magnesium Hydroxide (Milk Of Magnesia 30 Ml Oral.Susp) 30 ml PO DAILY PRN PRN Reason: Constipation Melatonin (Melatonin 3 Mg Tablet) 6 mg PO BEDTIME PRN PRN Reason: Insomnia Metoprolol Succinate (Metoprolol Succinate Er 12.5 Mg Halftab.Er.24h) 12.5 mg PO DAILY [facility]; Protocol Last Admin: 06/08/25 09:25 Dose: Not Given Documented By: RIKA Non-Admin Reason: Patient Refused Multivitamins/Vitamin C (Multivitamin Tablet) 1 tab PO DAILY [facility] Last Admin: 06/08/25 09:23 Dose: 1 tab Documented By: RIKA Patient Own Medication ( Rosuvastatin 10 Mg) 1 each PO BEDTIME [facility] Ondansetron HCl (Ondansetron Hcl 4 Mg/2 Ml Vial) 4 mg IVPUSH Q8H PRN PRN Reason: Nausea and Vomiting Last Admin: 06/08/25 10:04 Dose: 4 mg Documented By: RIKA Oxycodone HCl (Oxycodone Hcl Immed Release 5 Mg Tablet) 2.5 mg PO Q4H PRN PRN Reason: Pain, Severe (Pain Scale 7-10) Last Admin: 06/08/25 11:30 Dose: 2.5 mg Documented By: RIKA Rivaroxaban (Rivaroxaban 20 Mg Tablet) 20 mg PO DAILY@1700 [facility] Last Admin: 06/07/25 22:34 Dose: 20 mg Documented By: SAMMIE Roflumilast (Roflumilast 500 Mcg Tablet) 500 mcg PO BEDTIME [facility] Last Admin: 06/07/25 21:54 Dose: 500 mcg Documented By: SAMMIE Sodium Chloride (0.9 % Sodium Chloride Flush 3 Ml Syringe) 3 ml IVFLUSH QSHIFT [facility] Last Admin: 06/08/25 09:22 Dose: 3 ml Documented By: RIKA Sodium Chloride (Sodium Chloride 3 % Inhalation 15 Ml Vial.Neb) 15 ml INHALE RBID [facility] Last Admin: 06/08/25 08:20 Dose: 15 ml Documented By: ANUPAM Sodium Chloride (Sodium Chloride Tab 1 Gm Tablet) 2 gm PO TID [facility] Last Admin: 06/08/25 09:25 Dose: 2 gm Documented By: RIKA Urea (Urea 15 Gm Powder) 15 gm PO TID [facility] Stop: 06/08/25 23:59 Last Admin: 06/08/25 09:26 Dose: 15 gm Documented By: RIKA Valsartan (Valsartan 160 Mg Tablet) 160 mg PO DAILY [facility]; Protocol On Hold: 06/07/25 16:20 Last Admin: 06/07/25 09:32 Dose: 160 mg Documented By: RIKA Vitamin D (Cholecalciferol (Vitamin D3) 25 Mcg Tablet) 25 mcg PO DAILY [facility] Last Admin: 06/08/25 09:23 Dose: 25 mcg Documented By: RIKA Labs 06/08/25 05:47 06/08/25 05:47 Labs: Laboratory Results - last 24 hr 06/08/25 05:47 MCV 93.9 MCH 31.6 MCHC 33.6 RDW 14.7 Plt Count 298 MPV 8.6 L Absolute Nucleated RBC 0.000 Nucleated RBC % (auto) 0.0 Anion Gap 10 L Estim Creat Clear Calc 53.7 Estimated GFR > 60 Random Glucose 103 Calcium 8.4 Blood Type O Positive Antibody Screen NEGATIVE Assessment and Plan (1) Acute hyponatremia: Status: Acute (2) SIADH (syndrome of inappropriate ADH production): Status: Acute (3) PAF (paroxysmal atrial fibrillation): Status: Acute (4) Fracture of left ulna: Status: Acute Plan 85yo F with PAD, bronchiectasis, HTN, pAF on rivaroxaban, GERD presenting after mechanical fall, found to have L ulnar fracture, L AC separation, severe skin tears, and hypoNa. Sodium slowly improving. Pain meds adjusted 1.Acute hypoNa - likely poor solute intake and ADH secretion from pain - NaCl tabs, fluid restriction 1.5L/d, added urea (patient extremely nauseous with this treatment) -follow renals/divalent -sodium continues to improve . . . We will DC urea and follow 2.Normocytic anemia -hemoglobin stable at this time at 7.7 -follow CBC in a.m. -transfuse for hemoglobin less than 7 3.Acute fracture of the distal left ulnar diaphysis -pain meds adjusted secondary to over-sedation -pain control adequate -outpatient ortho follow up -short-term rehab 4.Severe skin tears - Wound Care: Bilateral knees: cleanse with saline, pat dry, apply skin prep raya wound, apply wound gel (hydrogel) to wound bed, cover with cuticerin oil emulsion dressing (nonadherent contact layer), cover with ABD pads, wrap with kerlix, change daily and PRN 5.Bronchiectasis/asthma/COPD -stable and well compensated -continue outpatient therapies 6.HTN -acceptable control on current therapies -adjust as indicated rivaroxaban Full code Patient requires continued inpatient hospitalization for the following reasons: hypoNa, anemia Quality Stroke Does the patient have a stroke diagnosis?: No VTE Prior VTE?: No VTE Risk Level:: Medical - moderate - high VTE Device Contraindication: Treatment Not Indicated VTE Drug Contraindication: N/A - Med Ordered
--- NOTE | 2025-06-08 14:57 | MHC.CM.PN ---
Met with patients oldest dtr. She states that the family has decided on a local facility for STR. 1st + 2nd choice [facility] and [facility]. [facility] is following. [facility] has not opened the referral yet. DP STR via BLS once medically cleared and a bed is available.
--- NOTE | 2025-06-08 16:13 | PC.NURSE ---
Dressing change of skin tears to bilateral shins completed. Very painful process for patient, and family. Tissue does appear to be healing.
--- NOTE | 2025-06-08 16:19 | PC.NURSE ---
Assisted Primary RN with wound care, patient tolerated poorly, Family and daughter at bedside to attempt to calm patient. See primary RN note for more details.
--- NOTE | 2025-06-08 17:51 | PC.NURSE ---
Pt received 2.5mg oxi at 11:30 for pain. 1600 pt very groggy and unable to stay awake, though VSS. Unable to give 1700 medication as pt too groggy to eat or take meds. Dressing change at 1600 was very exhausting for pt, and no other pain medications were given before or after dressing change. MD biswas.
[2025-06-09] MEDS: 0.9 % Sodium Chloride Flush 3 ML SYRINGE IVFLUSH ×4 (00:12→21:54)
[2025-06-09] MEDS: oxyCODONE HCl Immed Release 5 MG TABLET 2.5 MG PO ×3 (03:17→10:54)
[2025-06-09 03:47] VITALS: BP 106/53; PULSE 100; RESP 16; TEMP 37.1; O2SAT 96
[2025-06-09 07:12] VITALS: BP 99/49; PULSE 99; RESP 18; TEMP 37.3; O2SAT 96
[2025-06-09] MEDS: Sodium Chloride Tab 1 GM TABLET 2 GM PO ×3 (07:20→20:34)
[2025-06-09] MEDS: Sodium Chloride 3 % Inhalation 15 ML VIAL.NEB INHALE (07:59)
[2025-06-09] MEDS: Fluticasone/Umeclidinium/Vilanterol 200/62.5/25 BLST.W.DEV 1 PUFF INHALE (08:02)
[2025-06-09 08:05] VITALS: PULSE 100; RESP 18; O2SAT 97
--- NOTE | 2025-06-09 12:30 | HO.WOUND ---
Wound Consult: Follow up 85 yr old female admitted to [facility] on 06/05/25- See progress notes and H&P for detailed history. Wound consult placed for multiple skin tears after fall. Patient agreeable to assessment and photo documentation. Patient was pre-medicated for pain by direct care RN, see MAR. patient tolerated dressing change well. Patient with fall at home, noted by providers with multiple skin tears to left forearm, left forearm fx, put into short arm volar splint by ortho - dressing was not removed today. will add durafiber to skin tear treatment for drainage absorption, atraumatic removal Left knee 06/06 Left knee 06/09 Right knee 06/06 Right knee 06/09 Etiology: Large skin tears- partial skin flaps remaining- viable appearing Measurements: see assessment Wound Bed: miost pink/red, adipose tissue in left knee Drainage / Odor: bloody drainage, clots noted to left knee Edges: ? open Raya wound: ? No Induration, Fluctuance or Warmth noted - bruising noted raya wound Pain: yes- tolerated dressing change with pre-medication by direct care RN Goals of Treatment: ? moist wound healing and atraumatic removal with hydro gel, cuticerin contact layer, durafiber Left medial leg- area of irregular purple discoloration, pale center. leave open to air monitor for changes Right anterior ankle- two irregular areas with purple edges, pale white center - no induration, no fluctuance. - leave open to air monitor for changes Recommendations: 1. Turn and Reposition every 2 hours and as needed for patient comfort. Use pillows or wedges to support off loading positions. 2. Off Load all bony prominences with use of pillows and heel boots if needed. Apply Preventative foams where needed. 3. Monitor for incontinence and moisture control, use barrier creams when needed for prevention and treatment. 4. Provide adequate and supplemental nutrition. 5. Order or Continue low air loss mattress. 6. When applicable maintain blood glucose levels per Providers order. Bilateral knees: cleanse with saline, pat dry, apply skin prep raya wound, apply wound gel (hydrogel) to wound bed, cover with cuticerin oil emulsion dressing (nonadherent contact layer), followed by durafiber ag, cover with ABD pads, wrap with kerlix, change daily and PRN Bilateral Heels - Elevate heels off of bed surface with pillows. Float heels off of pillows. Apply skin prep allow to dry. Apply heel foam dressings, peel back and assess Q shift and change every 3-5 days and PRN. Re-consult wound care Nurse for wound deterioration or wound changes.
--- NOTE | 2025-06-09 14:17 | MHC.SLORD ---
Speech Language Pathology Order Status: Pt is tolerating diet as ordered, bedside swallow evaluation no longer indicated, MD notified.
--- NOTE | 2025-06-09 14:53 | P.PNIM_ITS ---
Subjective Subjective Date of Service: 06/09/25 Interval History: More alert this a.m.. Still with limited p.o. intake Review of Systems Denies chest pain Denies shortness of breath Admits nausea without vomiting or diarrhea Admits right-sided back pain (present prior to admission) Denies fever chills Physical Exam 2 Vital Signs: Vital Signs: Last Vital Signs Temp 99.1 F 06/09/25 07:12 Pulse 100 06/09/25 08:05 Resp 18 06/09/25 08:05 BP 99/49 L 06/09/25 07:12 Pulse Ox 96 06/09/25 07:12 O2 Del Method Room Air 06/09/25 07:12 O2 Flow Rate 2 06/07/25 15:48 BMI result Body Mass Index 37.7 Const: Other: Awake alert no acute distress Resp: Other: Scattered expiratory wheezes upper angulo consistent with bronchiectasis Cardio: Other: No S4; positive S1-S2; no S3 murmurs rubs or gallops GI: Other: Soft nontender nondistended normoactive bowel sounds Extrem: Other: No edema bilaterally. Dressings on bilateral lower extremities (please see wound care notes for details) Objective Data Active Medications Acetaminophen (Acetaminophen 325 Mg Tablet) 650 mg PO Q6H PRN PRN Reason: Pain, Mild 1-3,fever,headache Last Admin: 06/09/25 14:37 Dose: 650 mg Documented By: CARLI Albuterol Sulfate (Albuterol Sulfate 90 Mcg 8 Gm Inhaler) 2 puff INHALE Q6H PRN PRN Reason: shortness of breath or wheezing Azelastine HCl (Azelastine Hcl Nasal 137 Mcg/[place] 30 Ml) 2 spray NOSTRIL-B BID [facility] Last Admin: 06/09/25 07:15 Dose: Not Given Documented By: BLANCA Non-Admin Reason: Patient Refused Calcium Carbonate (Calcium Carbonate 750 Mg Tab.Chew) 750 mg PO Q4H PRN PRN Reason: Heartburn Chlorhexidine Gluconate (Chlorhexidine Gluc Oral Rinse 15 Ml Mouthwash) 15 ml BUCCAL DAILY [facility] Last Admin: 06/09/25 07:15 Dose: Not Given Documented By: BLANCA Non-Admin Reason: Patient Refused Flecainide Acetate (Flecainide Acetate 50 Mg Tablet) 50 mg PO BID [facility] Last Admin: 06/09/25 07:16 Dose: 50 mg Documented By: BLANCA Fluticasone Propionate (Fluticasone Propionate Nasal 16 Gm [place]) 2 spray NOSTRIL-B DAILY [facility] Last Admin: 06/09/25 07:16 Dose: Not Given Documented By: BLANCA Non-Admin Reason: Patient Refused Fluticasone/Umeclidinium/Vilanterol (Fluticasone/Umeclidinium/Vilanterol 200/62.5/25 Blst.W.Dev) 1 puff INHALE RDAILY [facility] Last Admin: 06/09/25 08:02 Dose: 1 puff Documented By: JESSICALDiogenes Piperacillin Sod/Tazobactam (Sod 3.375 gm/ Sodium Chloride) 50 mls @ 100 mls/hr IV Q6H [facility] Last Infusion: 06/09/25 09:47 Dose: Infused Documented By: BLANCA Magnesium Hydroxide (Milk Of Magnesia 30 Ml Oral.Susp) 30 ml PO DAILY PRN PRN Reason: Constipation Melatonin (Melatonin 3 Mg Tablet) 6 mg PO BEDTIME PRN PRN Reason: Insomnia Metoprolol Succinate (Metoprolol Succinate Er 12.5 Mg Halftab.Er.24h) 12.5 mg PO DAILY [facility]; Protocol Last Admin: 06/09/25 07:19 Dose: Not Given Documented By: BLANCA Non-Admin Reason: Decreased Blood Pressure Multivitamins/Vitamin C (Multivitamin Tablet) 1 tab PO DAILY [facility] Last Admin: 06/09/25 07:16 Dose: 1 tab Documented By: BLANCA Patient Own Medication ( Rosuvastatin 10 Mg) 1 each PO BEDTIME [facility] Ondansetron HCl (Ondansetron Hcl 4 Mg/2 Ml Vial) 4 mg IVPUSH Q8H PRN PRN Reason: Nausea and Vomiting Last Admin: 06/08/25 10:04 Dose: 4 mg Documented By: RIKA Oxycodone HCl (Oxycodone Hcl Immed Release 5 Mg Tablet) 2.5 mg PO Q4H PRN PRN Reason: Pain, Severe (Pain Scale 7-10) Last Admin: 06/09/25 10:54 Dose: 2.5 mg Documented By: BLANCA Rivaroxaban (Rivaroxaban 20 Mg Tablet) 20 mg PO DAILY@1600 RICHA Roflumilast (Roflumilast 500 Mcg Tablet) 500 mcg PO BEDTIME [facility] Last Admin: 06/08/25 21:44 Dose: 500 mcg Documented By: NATHALIA Sodium Chloride (0.9 % Sodium Chloride Flush 3 Ml Syringe) 3 ml IVFLUSH QSHIFT [facility] Last Admin: 06/09/25 07:20 Dose: 3 ml Documented By: BLANCA Sodium Chloride (Sodium Chloride 3 % Inhalation 15 Ml Vial.Neb) 15 ml INHALE RBID [facility] Last Admin: 06/09/25 07:59 Dose: 15 ml Documented By: SCLIBIA Sodium Chloride (Sodium Chloride Tab 1 Gm Tablet) 2 gm PO TID [facility] Last Admin: 06/09/25 14:21 Dose: 2 gm Documented By: BLANCA Valsartan (Valsartan 160 Mg Tablet) 160 mg PO DAILY [facility]; Protocol On Hold: 06/07/25 16:20 Last Admin: 06/07/25 09:32 Dose: 160 mg Documented By: RIKA Vitamin D (Cholecalciferol (Vitamin D3) 25 Mcg Tablet) 25 mcg PO DAILY [facility] Last Admin: 06/09/25 07:17 Dose: 25 mcg Documented By: BLANCA Labs 06/08/25 05:47 06/08/25 05:47 Assessment and Plan (1) Acute hyponatremia: Status: Acute (2) SIADH (syndrome of inappropriate ADH production): Status: Acute (3) Fracture of left ulna: Status: Acute Plan 85yo F with PAD, bronchiectasis, HTN, pAF on rivaroxaban, GERD presenting after mechanical fall, found to have L ulnar fracture, L AC separation, severe skin tears, and hypoNa. Sodium slowly improving. Pain meds adjusted 1.Acute hypoNa -NaCl tabs, fluid restriction 1.5L/d, added urea (patient extremely nauseous with this treatment) -follow renals/divalent -sodium continues to improve . . . We will DC urea and follow 2.Normocytic anemia -hemoglobin stable -follow CBC in a.m. -transfuse for hemoglobin less than 7 3.Acute fracture of the distal left ulnar diaphysis -pain meds adjusted secondary to over-sedation -pain control adequate -short-term rehab... When appropriate 4.Severe skin tears - Wound Care: Bilateral knees: cleanse with saline, pat dry, apply skin prep raya wound, apply wound gel (hydrogel) to wound bed, cover with cuticerin oil emulsion dressing (nonadherent contact layer), cover with ABD pads, wrap with kerlix, change daily and PRN 5.Bronchiectasis/asthma/COPD -given low-grade fever and overall fatigue will empirically treat for aspiration with Zosyn 6.HTN -acceptable control on current therapies -adjust as indicated rivaroxaban Full code Patient requires continued inpatient hospitalization for the following reasons: hypoNa, anemia Quality Stroke Does the patient have a stroke diagnosis?: No VTE Prior VTE?: No VTE Risk Level:: Medical - moderate - high VTE Device Contraindication: Treatment Not Indicated VTE Drug Contraindication: N/A - Med Ordered
[2025-06-09 15:15] VITALS: BP 119/52; PULSE 92; RESP 18; TEMP 37.3; O2SAT 95
--- NOTE | 2025-06-09 15:51 | MHC.CM.PN ---
[facility] declined to offer a bed. [facility] is following. She is not medically clear to discharge. DP STR via BLS.
--- NOTE | 2025-06-09 15:59 | P.PNNP_ITS ---
Subjective Subjective Date of Service: 06/09/25 Interval history: Events noted Physical Exam 2 Vital Signs: Vital Signs: Last Vital Signs Temp 99.1 F 06/09/25 15:15 Pulse 92 06/09/25 15:15 Resp 18 06/09/25 15:15 BP 119/52 L 06/09/25 15:15 Pulse Ox 95 06/09/25 15:15 O2 Del Method Room Air 06/09/25 15:15 O2 Flow Rate 2 06/07/25 15:48 BMI result Body Mass Index 37.7 Comfortable Neck supple no JVD. Lungs entry equal no rales. Heart S1-S2 heard no gallop or rub. Abdomen soft nontender. Neuro alert awake oriented. No asterixis. Extremities no edema. Objective Data Labs 06/08/25 05:47 06/08/25 05:47 Procedures Date of Service Date of Service: 06/09/25 Assessment & Plan Assessment and plan (1) Acute hyponatremia: Status: Acute Plan Hyponatremia due to non osmotic ADH release. Serum sodium is at 130 Rate of correction acceptable. Restrict hypotonic fluids. Goal is to maintain serum sodium more than 130 millimoles. Renal function is at baseline. Time Spent With Patient Time: Total time managing care of this patient today ____ minutes. Progress Note: Quality Stroke Does the patient have a stroke diagnosis?: No
[2025-06-09 18:52] VITALS: BP 111/49; PULSE 92; RESP 18; TEMP 36.8; O2SAT 94
[2025-06-09] MEDS: Azelastine HCl Nasal 137 MCG/Spray 30 ML 2 SPRAY NOSTRIL-B (20:34)
--- NOTE | 2025-06-09 21:45 | PC.NURSE ---
Respiratory contacted re: scheduled sodium inhalation. Busy in ICU at this time, will follow up on medication.
--- NOTE | 2025-06-09 22:39 | PC.NURSE ---
contact info daughter Leann, tel [phone]
[2025-06-10] VITALS (11 sets, daily range): BP systolic 99–141; BP diastolic 44–63; PULSE 74–93; RESP 15–20; TEMP 36.6–37.3; O2SAT 9–98
[2025-06-10] MEDS: guaiFENesin 200 MG/10 ML 10 ML LIQUID PO (05:35)
[2025-06-10 05:57] LABS: Hematocrit 21.8 % (37.0-47.0); Imm Gran Abs Auto 0.05 X10*3/uL (0.00-0.03); Imm Gran Pct Auto 0.6 % (0.0-0.4); Lymphocytes Absolute Auto 1.4 X10*3/uL (1.2-4.9); MANUAL DIFF FLAG SCAN; Mean Corpuscular HGB Conc 32.1 g/dl (31.0-35.0); Mean Corpuscular Hemoglobin 29.9 pg (27.0-33.0); Mean Corpuscular Volume 93.2 fL (80.0-98.0); NRBC Abs Auto 0.000 X10*3/uL (0.0-0.012); NRBC Pct Auto 0.0 /100WBC (0.0-0.2); Platelet Count 343 X10*3/uL (160-400); Red Blood Count 2.34 X10*6/uL (4.20-5.50); SCAN SMEAR FLAG 1; White Blood Count 8.1 X10*3/uL (4.8-10.8)
[2025-06-10 06:30] LABS: Alanine Aminotransferase 14 U/L (0-31); Albumin Level 2.6 g/dL (3.5-5.0); Alkaline Phosphatase 67 U/L (39-117); Anion Gap 9 (12-20); Aspartate Amino Transferase 49 U/L (5-31); Blood Urea Nitrogen 19 mg/dL (9-16); Calcium 8.1 mg/dL (8.4-10.2); Carbon Dioxide 25 mmol/L (22-29); Chloride 103 mmol/L (96-108); Creatinine Clr Calc Pharmacy 60.7; Estimated Glomerular Filt Rate > 60; Potassium 4.1 mmol/L (3.3-5.1); Sodium 133 mmol/L (135-145); Total Protein 5.0 g/dL (6.5-8.0)
[2025-06-10 06:50] LABS: Hemoglobin 7.0 g/dl (12.0-16.0)
[2025-06-10] MEDS: Sodium Chloride 3 % Inhalation 15 ML VIAL.NEB 4 ML INHALE (07:49)
[2025-06-10] MEDS: Fluticasone/Umeclidinium/Vilanterol 200/62.5/25 BLST.W.DEV 1 PUFF INHALE (07:49)
[2025-06-10] MEDS: oxyCODONE HCl Immed Release 5 MG TABLET 2.5 MG PO ×2 (08:18→14:00)
[2025-06-10] MEDS: Sodium Chloride Tab 1 GM TABLET 2 GM PO ×2 (08:19→14:00)
[2025-06-10] MEDS: 0.9 % Sodium Chloride Flush 3 ML SYRINGE IVFLUSH ×3 (08:19→19:35)
--- NOTE | 2025-06-10 10:59 | HO.WOUND ---
Wound Consult: Follow up 85 yr old female admitted to [facility] on 06/05/25- See progress notes and H&P for detailed history. Wound consult placed for multiple skin tears after fall. Patient agreeable to assessment and photo documentation. Patient was pre-medicated for pain by direct care RN, see MAR. patient tolerated dressing change with some pain, family at bedside. Patient with fall at home, noted by providers with multiple skin tears to left forearm, left forearm fx, put into short arm volar splint by ortho - dressing was not removed today. will continue wound gel, cuticerin, durafiber to skin tears treatment for drainage absorption, atraumatic removal. Left knee 06/06 Left knee 06/09 Left knee 06/10 Right knee 06/06 Right knee 06/09 Etiology: Large skin tears- partial skin flaps remaining- viable appearing Measurements: see assessment Wound Bed: miost pink/red, adipose tissue in left knee Drainage / Odor: bloody drainage, clots noted to left knee Edges: ? open Raya wound: ? No Induration, Fluctuance or Warmth noted - bruising noted raya wound Pain: yes- tolerated dressing change with pre-medication by direct care RN Goals of Treatment: ? moist wound healing and atraumatic removal with hydro gel, cuticerin contact layer, durafiber Buttocks Etiology: intact blanchable redness Wound Bed: intact blanchable redness Drainage / Odor: none Raya wound: ? No Induration, Fluctuance or Warmth noted Pain: none at buttocks Goals of Treatment: ?offloading and pressure redistribution with foam dressing and q2h turns bilateral heels intact pink and blanching, patient complaining of pain to heels. offloading heel boots applied with foam dressings Recommendations: 1. Turn and Reposition every 2 hours and as needed for patient comfort. Use pillows or wedges to support off loading positions. 2. Off Load all bony prominences with use of pillows and heel boots if needed. Apply Preventative foams where needed. 3. Monitor for incontinence and moisture control, use barrier creams when needed for prevention and treatment. 4. Provide adequate and supplemental nutrition. 5. Order or Continue low air loss mattress. 6. When applicable maintain blood glucose levels per Providers order. Bilateral knees: cleanse with saline, pat dry, apply skin prep raya wound, apply wound gel (hydrogel) to wound bed, cover with cuticerin oil emulsion dressing (nonadherent contact layer), followed by durafiber ag, cover with ABD pads, wrap with kerlix, change daily and PRN Bilateral Heels - Elevate heels off of bed surface with pillows. Float heels off of pillows. Apply skin prep allow to dry. Apply heel foam dressings, peel back and assess Q shift and change every 3-5 days and PRN. Bilateral buttocks/coccyx: Off Load Pressure with Q2 hr turns and use of pillows - Routine cleansing. Apply skin prep allow to dry. Cover with foam dressing to aid in off loading and protection from friction. Change every 3 days and PRN. Re-consult wound care Nurse for wound deterioration or wound changes.
--- NOTE | 2025-06-10 13:02 | P.PNNP_ITS ---
Subjective Subjective Date of Service: 06/10/25 Interval history: Events noted Physical Exam 2 Vital Signs: Vital Signs: Last Vital Signs Temp 98.3 F 06/10/25 10:08 Pulse 80 06/10/25 10:08 Resp 16 06/10/25 10:08 BP 102/46 L 06/10/25 10:08 Pulse Ox 95 06/10/25 08:00 O2 Del Method Room Air 06/10/25 08:00 O2 Flow Rate 2 06/07/25 15:48 BMI result Body Mass Index 37.7 Comfortable Neck supple no JVD. Lungs entry equal no rales. Heart S1-S2 heard no gallop or rub. Abdomen soft nontender. Neuro alert awake oriented. No asterixis. Extremities no edema. Objective Data Labs 06/10/25 05:15 06/10/25 05:15 Labs: Laboratory Results - last 24 hr 06/08/25 06/10/25 05:47 05:15 WBC 8.1 RBC 2.34 L Hgb 7.0 L* Hct 21.8 L MCV 93.2 MCH 29.9 MCHC 32.1 RDW 15.0 Plt Count 343 MPV 8.3 L Immature Gran % (Auto) 0.6 H Neut % (Auto) 60.8 Lymph % (Auto) 17.6 L [place] % (Auto) 19.1 H Eos % (Auto) 1.7 Baso % (Auto) 0.2 Lymph # (Auto) 1.4 [place] # (Auto) 1.6 H Eos # (Auto) 0.1 Baso # (Auto) 0.0 Abs Immat Gran (auto) 0.05 H Absolute Neuts (auto) 4.9 Absolute Nucleated RBC 0.000 Nucleated RBC % (auto) 0.0 Smear Tech's Comments VERIFIED Sodium 133 L Potassium 4.1 Chloride 103 Carbon Dioxide 25 Anion Gap 9 L BUN 19 H Creatinine 0.69 Estim Creat Clear Calc 60.7 Estimated GFR > 60 Fasting Glucose 105 H Calcium 8.1 L Total Bilirubin 0.5 AST 49 H ALT 14 Alkaline Phosphatase 67 Total Protein 5.0 L Albumin 2.6 L Blood Type O Positive Antibody Screen NEGATIVE Crossmatch See Detail Procedures Date of Service Date of Service: 06/10/25 Assessment & Plan Assessment and plan (1) Acute hyponatremia: Status: Acute Plan Hyponatremia due to non osmotic ADH release. Serum sodium is at 133 Rate of correction acceptable. Restrict hypotonic fluids. Goal is to maintain serum sodium more than 130 millimoles. Renal function is at baseline. Time Spent With Patient Time: Total time managing care of this patient today ____ minutes. Progress Note: Quality Stroke Does the patient have a stroke diagnosis?: No
--- NOTE | 2025-06-10 14:25 | P.PNIM_ITS ---
Subjective Subjective Date of Service: 06/10/25 Interval History: Markedly improved this a.m.. Hemoglobin noted to be 7 in the absence of active bleeding. Review of Systems Denies chest pain Denies shortness of breath Admits nausea without vomiting or diarrhea Admits right-sided back pain (present prior to admission) Denies fever chills Physical Exam 2 Vital Signs: Vital Signs: Last Vital Signs Temp 99.1 F 06/10/25 14:09 Pulse 88 06/10/25 14:09 Resp 16 06/10/25 14:09 BP 116/58 L 06/10/25 14:09 Pulse Ox 95 06/10/25 08:00 O2 Del Method Room Air 06/10/25 08:00 O2 Flow Rate 2 06/07/25 15:48 BMI result Body Mass Index 37.7 Const: Other: Awake alert no acute distress Resp: Other: Scattered expiratory wheezes upper angulo consistent with bronchiectasis Cardio: Other: No S4; positive S1-S2; no S3 murmurs rubs or gallops GI: Other: Soft nontender nondistended normoactive bowel sounds Extrem: Other: No edema bilaterally. Dressings on bilateral lower extremities (please see wound care notes for details) Objective Data Active Medications Acetaminophen (Acetaminophen 325 Mg Tablet) 650 mg PO Q6H PRN PRN Reason: Pain, Mild 1-3,fever,headache Last Admin: 06/10/25 01:00 Dose: 650 mg Documented By: ASA Albuterol Sulfate (Albuterol Sulfate (0.083%) 2.5 Mg/3 Ml Vial.Neb) 2.5 mg INHALE Q6H PRN PRN Reason: Shortness of Breath/Wheezing Azelastine HCl (Azelastine Hcl Nasal 137 Mcg/[place] 30 Ml) 2 spray NOSTRIL-B BID [facility] Last Admin: 06/10/25 08:31 Dose: Not Given Documented By: TANK Non-Admin Reason: Patient Refused Calcium Carbonate (Calcium Carbonate 750 Mg Tab.Chew) 750 mg PO Q4H PRN PRN Reason: Heartburn Chlorhexidine Gluconate (Chlorhexidine Gluc Oral Rinse 15 Ml Mouthwash) 15 ml BUCCAL DAILY [facility] Last Admin: 06/10/25 08:19 Dose: Not Given Documented By: TANK Non-Admin Reason: Patient Refused Flecainide Acetate (Flecainide Acetate 50 Mg Tablet) 50 mg PO BID [facility] Last Admin: 06/10/25 08:19 Dose: 50 mg Documented By: TANK Fluticasone Propionate (Fluticasone Propionate Nasal 16 Gm [place]) 2 spray NOSTRIL-B DAILY [facility] Last Admin: 06/10/25 08:32 Dose: Not Given Documented By: TANK Non-Admin Reason: Patient Refused Fluticasone/Umeclidinium/Vilanterol (Fluticasone/Umeclidinium/Vilanterol 200/62.5/25 Blst.W.Dev) 1 puff INHALE RDAILY [facility] Last Admin: 06/10/25 07:49 Dose: 1 puff Documented By: LAURE Guaifenesin (Guaifenesin 200 Mg/10 Ml 10 Ml Liquid) 10 ml PO Q4H PRN PRN Reason: Cough Last Admin: 06/10/25 05:35 Dose: 10 ml Documented By: ASA Piperacillin Sod/Tazobactam (Sod 3.375 gm/ Sodium Chloride) 50 mls @ 100 mls/hr IV Q6H [facility] Last Infusion: 06/10/25 12:00 Dose: Infused Documented By: TANK Magnesium Hydroxide (Milk Of Magnesia 30 Ml Oral.Susp) 30 ml PO DAILY PRN PRN Reason: Constipation Melatonin (Melatonin 3 Mg Tablet) 6 mg PO BEDTIME PRN PRN Reason: Insomnia Metoprolol Succinate (Metoprolol Succinate Er 12.5 Mg Halftab.Er.24h) 12.5 mg PO DAILY [facility]; Protocol Last Admin: 06/10/25 09:43 Dose: Not Given Documented By: TANK Non-Admin Reason: held Multivitamins/Vitamin C (Multivitamin Tablet) 1 tab PO DAILY [facility] Last Admin: 06/10/25 08:18 Dose: 1 tab Documented By: TANK Patient Own Medication ( Rosuvastatin 10 Mg) 1 each PO BEDTIME [facility] Ondansetron HCl (Ondansetron Hcl 4 Mg/2 Ml Vial) 4 mg IVPUSH Q8H PRN PRN Reason: Nausea and Vomiting Last Admin: 06/10/25 11:32 Dose: 4 mg Documented By: TANK Oxycodone HCl (Oxycodone Hcl Immed Release 5 Mg Tablet) 2.5 mg PO Q4H PRN PRN Reason: Pain, Severe (Pain Scale 7-10) Last Admin: 06/10/25 14:00 Dose: 2.5 mg Documented By: TANK Rivaroxaban (Rivaroxaban 20 Mg Tablet) 20 mg PO DAILY@1600 [facility] Last Admin: 06/09/25 16:46 Dose: 20 mg Documented By: CHITRA Roflumilast (Roflumilast 500 Mcg Tablet) 500 mcg PO BEDTIME [facility] Last Admin: 06/09/25 20:34 Dose: 500 mcg Documented By: NATHALIA Sodium Chloride (0.9 % Sodium Chloride Flush 3 Ml Syringe) 3 ml IVFLUSH QSHIFT [facility] Last Admin: 06/10/25 08:19 Dose: 3 ml Documented By: TANK Sodium Chloride (Sodium Chloride Tab 1 Gm Tablet) 2 gm PO TID [facility] Last Admin: 06/10/25 14:00 Dose: 2 gm Documented By: TANK Sodium Chloride (Sodium Chloride 3 % Inhalation 15 Ml Vial.Neb) 4 ml INHALE RBID [facility] Last Admin: 06/10/25 07:49 Dose: 4 ml Documented By: LAURE Valsartan (Valsartan 160 Mg Tablet) 160 mg PO DAILY [facility]; Protocol On Hold: 06/07/25 16:20 Last Admin: 06/07/25 09:32 Dose: 160 mg Documented By: RIKA Vitamin D (Cholecalciferol (Vitamin D3) 25 Mcg Tablet) 25 mcg PO DAILY [facility] Last Admin: 06/10/25 08:18 Dose: 25 mcg Documented By: TANK Labs 06/10/25 05:15 06/10/25 05:15 Labs: Laboratory Results - last 24 hr 06/08/25 06/10/25 05:47 05:15 MCV 93.2 MCH 29.9 MCHC 32.1 RDW 15.0 Plt Count 343 MPV 8.3 L Immature Gran % (Auto) 0.6 H Neut % (Auto) 60.8 Lymph % (Auto) 17.6 L [place] % (Auto) 19.1 H Eos % (Auto) 1.7 Baso % (Auto) 0.2 Lymph # (Auto) 1.4 [place] # (Auto) 1.6 H Eos # (Auto) 0.1 Baso # (Auto) 0.0 Abs Immat Gran (auto) 0.05 H Absolute Neuts (auto) 4.9 Absolute Nucleated RBC 0.000 Nucleated RBC % (auto) 0.0 Smear Tech's Comments VERIFIED Anion Gap 9 L Estim Creat Clear Calc 60.7 Estimated GFR > 60 Fasting Glucose 105 H Calcium 8.1 L Total Bilirubin 0.5 AST 49 H ALT 14 Alkaline Phosphatase 67 Total Protein 5.0 L Albumin 2.6 L Blood Type O Positive Antibody Screen NEGATIVE Crossmatch See Detail Assessment and Plan (1) Acute hyponatremia: Status: Acute (2) Anemia: Status: Acute Plan 85yo F with PAD, bronchiectasis, HTN, pAF on rivaroxaban, GERD presenting after mechanical fall, found to have L ulnar fracture, L AC separation, severe skin tears, and hypoNa. Sodium slowly improving. Pain meds adjusted 1.Acute hypoNa -discussed with nursing. Patient has been refusing all sodium repletion orally. -we will formally DC and follow -follow renals/divalent 2.Normocytic anemia -hemoglobin 7.0 this a.m. -transfuse 2 units packed red cells with Lasix after 1st unit -follow CBC in a.m. 3.Acute fracture of the distal left ulnar diaphysis -pain meds adjusted secondary to over-sedation -pain control adequate -short-term rehab... When appropriate 4.Severe skin tears - Wound Care: Bilateral knees: cleanse with saline, pat dry, apply skin prep raya wound, apply wound gel (hydrogel) to wound bed, cover with cuticerin oil emulsion dressing (nonadherent contact layer), cover with ABD pads, wrap with kerlix, change daily and PRN -less painful per patient since antibiotic 5.Bronchiectasis/asthma/COPD -improvement noted in cough/respiratory status -given low-grade fever and overall fatigue will empirically treat for aspiration with Zosyn 6.HTN -acceptable control on current therapies -adjust as indicated rivaroxaban Full code Patient requires continued inpatient hospitalization for the following reasons: hypoNa, anemia Quality Stroke Does the patient have a stroke diagnosis?: No VTE Prior VTE?: No VTE Risk Level:: Medical - moderate - high VTE Device Contraindication: Treatment Not Indicated VTE Drug Contraindication: N/A - Med Ordered
[2025-06-10 17:01] LABS: Chlamydia pneumoniae PCR Not Detected (Not Detect.); Coronavirus 229E PCR Not Detected (Not Detect.); Coronavirus HKU1 PCR Not Detected (Not Detect.); Coronavirus NL63 PCR Not Detected (Not Detect.); Coronavirus OC43 PCR Not Detected (Not Detect.); RSV PCR Not Detected (Not Detect.); Rhino/Enterovirus PCR Not Detected (Not Detect.)
[2025-06-10 17:14] LABS: SARS-CoV-2 PCR Not Detected (Not Detect.)
[2025-06-10 17:19] LABS: Influenza A H1 PCR Not Detected (Not Detect.); Influenza A H1-2009 PCR Not Detected (Not Detect.); Influenza A H3 PCR Not Detected (Not Detect.)
[2025-06-10] MEDS: Albuterol Sulfate (0.083%) 2.5 MG/3 ML VIAL.NEB INHALE (22:23)
[2025-06-11 03:39] VITALS: BP 118/58; PULSE 78; RESP 20; TEMP 37.1; O2SAT 94
[2025-06-11 06:51] LABS: MANUAL DIFF FLAG NO
[2025-06-11 07:05] LABS: Hematocrit 28.7 % (37.0-47.0); Hemoglobin 9.6 g/dl (12.0-16.0); Imm Gran Abs Auto 0.08 X10*3/uL (0.00-0.03); Imm Gran Pct Auto 0.9 % (0.0-0.4); Lymphocytes Absolute Auto 1.6 X10*3/uL (1.2-4.9); Mean Corpuscular HGB Conc 33.4 g/dl (31.0-35.0); Mean Corpuscular Hemoglobin 30.0 pg (27.0-33.0); Mean Corpuscular Volume 89.7 fL (80.0-98.0); NRBC Abs Auto 0.000 X10*3/uL (0.0-0.012); NRBC Pct Auto 0.0 /100WBC (0.0-0.2); Platelet Count 356 X10*3/uL (160-400); Red Blood Count 3.20 X10*6/uL (4.20-5.50); White Blood Count 8.5 X10*3/uL (4.8-10.8)
[2025-06-11 07:14] LABS: Alanine Aminotransferase 19 U/L (0-31); Albumin Level 2.8 g/dL (3.5-5.0); Alkaline Phosphatase 79 U/L (39-117); Anion Gap 13 (12-20); Aspartate Amino Transferase 47 U/L (5-31); Blood Urea Nitrogen 16 mg/dL (9-16); Calcium 8.3 mg/dL (8.4-10.2); Carbon Dioxide 23 mmol/L (22-29); Chloride 102 mmol/L (96-108); Creatinine Clr Calc Pharmacy 66.5; Estimated Glomerular Filt Rate > 60; Potassium 4.1 mmol/L (3.3-5.1); Sodium 134 mmol/L (135-145); Total Protein 5.4 g/dL (6.5-8.0)
[2025-06-11 07:41] VITALS: BP 144/61; PULSE 75; RESP 20; TEMP 37; O2SAT 94
[2025-06-11] MEDS: Sodium Chloride 3 % Inhalation 15 ML VIAL.NEB 4 ML INHALE (08:24)
[2025-06-11 08:25] VITALS: PULSE 71; RESP 12; O2SAT 99
[2025-06-11] MEDS: Fluticasone/Umeclidinium/Vilanterol 200/62.5/25 BLST.W.DEV 1 PUFF INHALE (08:25)
--- NOTE | 2025-06-11 08:29 | P.CDIM_ITS ---
PROVIDER RESPONSE TEXT: To clarify, the appropriate diagnosis supported by the clinical indicators: Bronchiectasis with acute bronchitis QUERY TEXT: PHYSICIAN'S DOCUMENTATION REQUEST Date of Query: 06/10/2025 10:28 AM EDT Patient Name: Lainey Floyd Admit Date: 06/06/2025 Dear Mahin Tinoco DO, A review of the medical record indicates additional documentation may be needed. Please review below and update the documentation accordingly. Clinical Indicators: Bronchiectasis/asthma/COPD IV Zosyn for empiric treatment of aspiration, fever, fatigue Please clarify which of the following accurately represents the patient's respiratory status: Bronchiectasis with acute bronchitis Bronchiectasis with acute lower respiratory infection Bronchiectasis with acute exacerbation COPD with acute exacerbation COPD with acute lower respiratory infection Asthma, please specify severity Other (explain) Clinically unable to determine (explain) Thank you, Sahlonda Peck RN Use of terms such as suspected, likely, concern for, or probable (associated with a specific diagnosis that is being evaluated, monitored, or treated as if it exists) are acceptable and can be coded in the inpatient setting, when documented at the time of discharge. Please use your independent medical judgment in providing your response. THIS QUERY IS PART OF THE PERMANENT MEDICAL RECORD
[2025-06-11 08:52] VITALS: BP 144/61; PULSE 71
[2025-06-11] MEDS: Metoprolol Succinate ER 12.5 MG HALFTAB.ER.24H PO (08:52)
[2025-06-11] MEDS: 0.9 % Sodium Chloride Flush 3 ML SYRINGE IVFLUSH (08:53)
--- NOTE | 2025-06-11 11:59 | MHC.CM.PN ---
pt to [facility] today at 3
--- NOTE | 2025-06-11 12:25 | PM.DS ---
DS: Providers Provider Date of Service: 06/11/25 Date of admission: 06/05/25 20:51 Date of discharge: 06/11/25 Primary care physician: Arielle Smith NP Consults: 06/05/25 20:56 Consult to Wound Care Routine Consulting Provider: [facility] Reason for consultation: fall, multiple wounds 06/05/25 21:09 Consult to Orthopedics Routine Consulting Provider: [facility] Reason for consultation: L distal ulnar fx, L AC joint separation, L knee soft tissue injury Has provider been notified: No 06/06/25 08:17 Consult to Nephrology Routine Consulting Provider: [facility] Reason for consultation: hypoNa DS: Diagnosis Discharge Diagnosis (1) Acute hyponatremia: Status: Acute (2) Anemia: Status: Acute DS: Summary Hospital Course Hospital Course: 85 yo female with a pmhx signficant for PAD, bronchiectasis, HTN, paroxysmal a fib on xarelto, GERD, asthma/COPD overlap, and class 1 obesity, who presented to the ED due to a mechanical fall with HS and severe skin tears. the pt states that she tripped over her feet and was not feeling SOB, dizziness or chest pain. she has been going to PT for hip bursitis and her son notes that he does not feel that she can ambulate safely at home. she lives in a 2 story home and he is concerned for her safety at home and the severe skin tears on her legs and L arm. the pt is complaining of L wrist pain, 10/10, left knee pain and L shoulder pain. no headache, visual changes or confusion. she has a chronic cough, which is at baseline. Hospital Course Admitted to general medical floor and seen in consultation by Orthopedics. Orthopedics recommended a volar splint with a sling and gentle range of motion. She was also seen in consultation by Wound Care: Recommendations: 1. Turn and Reposition every 2 hours and as needed for patient comfort. Use pillows or wedges to support off loading positions. 2. Off Load all bony prominences with use of pillows and heel boots if needed. Apply Preventative foams where needed. 3. Monitor for incontinence and moisture control, use barrier creams when needed for prevention and treatment. 4. Provide adequate and supplemental nutrition. 5. Order or Continue low air loss mattress. 6. When applicable maintain blood glucose levels per Providers order. Bilateral knees: cleanse with saline, pat dry, apply skin prep raya wound, apply wound gel (hydrogel) to wound bed, cover with cuticerin oil emulsion dressing (nonadherent contact layer), followed by durafiber ag, cover with ABD pads, wrap with kerlix, change daily and PRN Bilateral Heels - Elevate heels off of bed surface with pillows. Float heels off of pillows. Apply skin prep allow to dry. Apply heel foam dressings, peel back and assess Q shift and change every 3-5 days and PRN. Bilateral buttocks/coccyx: Off Load Pressure with Q2 hr turns and use of pillows - Routine cleansing. Apply skin prep allow to dry. Cover with foam dressing to aid in off loading and protection from friction. Change every 3 days and PRN. She was noted to have acute on chronic kidney disease with hyponatremia. Seen in consultation by renal who felt this was an SIADH phenomena secondary to pain. She was fluid restricted and salt supplementation. Over the course of her hospitalization, her sodium continued to normalize despite the fact that she consistently refused sodium supplements. She was found to be chronically anemic however her hemoglobin dropped to 7.0 secondary to poor intake. She was transfused 2 units of packed red cells with good results. At this point in time she is medically acceptable for transfer to SNF Time Attestation Discharge Coordination Time (in mins): 35 Quality: Safe Use of Opioids Does Pt have an Active Cancer Diagnosis on the Problem List?: No Quality: Stroke Does the patient have a stroke diagnosis?: No Physical Exam Vital Signs: Vital Signs: Last Vital Signs Temp 98.6 F 06/11/25 07:41 Pulse 71 06/11/25 08:52 Resp 12 06/11/25 08:25 BP 144/61 H 06/11/25 08:52 Pulse Ox 94 06/11/25 07:41 O2 Del Method Room Air 06/11/25 07:41 O2 Flow Rate 2 06/07/25 15:48 BMI result Body Mass Index 37.7 Const: Other: Awake alert no acute distress Resp: Other: Scattered expiratory wheezes upper angulo consistent with bronchiectasis Cardio: Other: No S4; positive S1-S2; no S3 murmurs rubs or gallops GI: Other: Soft nontender nondistended normoactive bowel sounds Extrem: Other: No edema bilaterally. Dressings on bilateral lower extremities (please see wound care notes for details) DS: Data Data Completed and Pending Labs on day of discharge: Laboratory Results - last 24 hr 06/08/25 06/10/25 06/11/25 05:47 15:23 06:44 WBC 8.5 RBC 3.20 L D Hgb 9.6 L D Hct 28.7 L D MCV 89.7 MCH 30.0 MCHC 33.4 RDW 16.2 H Plt Count 356 MPV 8.1 L Immature Gran % (Auto) 0.9 H Neut % (Auto) 61.1 Lymph % (Auto) 19.3 L [place] % (Auto) 16.7 H Eos % (Auto) 1.8 Baso % (Auto) 0.2 Lymph # (Auto) 1.6 [place] # (Auto) 1.4 H Eos # (Auto) 0.2 Baso # (Auto) 0.0 Abs Immat Gran (auto) 0.08 H Absolute Neuts (auto) 5.2 Absolute Nucleated RBC 0.000 Nucleated RBC % (auto) 0.0 Sodium 134 L Potassium 4.1 Chloride 102 Carbon Dioxide 23 Anion Gap 13 BUN 16 Creatinine 0.63 Estim Creat Clear Calc 66.5 Estimated GFR > 60 Fasting Glucose 101 H Calcium 8.3 L Total Bilirubin 0.8 AST 47 H ALT 19 Alkaline Phosphatase 79 Total Protein 5.4 L Albumin 2.8 L Respiratory Panel Trent See Note Adenovirus (Rapid PCR) Not Detected B.pert (TEM-PCR) Not Detected B.parapertussis DNA PCR Not Detected C. pneumoniae DNA (PCR) Not Detected Coronavirus OC43 (PCR) Not Detected Coronavirus HKU1 (PCR) Not Detected Coronavirus 229E (PCR) Not Detected Coronavirus NL63 (PCR) Not Detected Human Metapneumovir PCR Not Detected Influenza A (RT-PCR) Not Detected Influenza A (H1) PCR Not Detected Influ A (H1/09) PCR Not Detected Influenza A (H3) PCR Not Detected Influenza B (RT-PCR) Not Detected M. pneumoniae (PCR) Not Detected Parainfluenza 1 (PCR) Not Detected Parainfluenza 2 (PCR) Not Detected Parainfluenza 3 (PCR) Not Detected Parainfluenza 4 (PCR) Not Detected RSV (PCR) Not Detected Entero/Rhino (PCR) Not Detected SARS-CoV-2 RNA (RT-PCR) Not Detected Blood Type O Positive Antibody Screen NEGATIVE Crossmatch See Detail Discharge Plan Discharge Anticipated Discharge Date/Time: 06/11/25 11:58 Patient Disposition: Xfer Inpatient Rehab Fac Discharge Diagnosis: left ulnar fracture [facility]errals: [facility] [Other] - 1 Week Arielle Smith NP [Primary Care Provider, Internal Medicine] - 1 Week Discharge Medications: New lidocaine [Lidocaine Pain Relief] 4 % Adhesive Patch,Medicated 1 patch transdermal DAILY PRN (Reason: Pain, Mild (Pain Scale 1-3)) Qty: 3 0RF Protocol: Apply to: Apply to: lower back tramadol 50 mg Tablet 50 mg PO Q4H PRN (Reason: Pain, Moderate(Pain Scale 4-6)) Qty: 30 0RF amoxicillin-pot clavulanate 875-125 mg tablet 1 tab PO BID Qty: 14 0RF Continued albuterol sulfate 90 mcg/actuation HFA aerosol inhaler 2 inh inhalation Q6H PRN (Reason: shortness of breath or wheezing) 30 Days Qty: 18 12RF rosuvastatin 10 mg tablet 10 mg PO BEDTIME Qty: 90 3RF flecainide 50 mg tablet 50 mg PO BID Qty: 180 3RF gabapentin 300 mg capsule 300 mg PO TID sodium chloride 7 % solution for nebulization 4 ml inhalation BID roflumilast [Daliresp] 500 mcg tablet 500 mcg PO BEDTIME acetaminophen 500 mg Tablet 1,000 mg PO Q6H PRN (Reason: Pain) vitamin B complex Tablet 1 tab PO DAILY metoprolol succinate [Toprol XL] 25 mg tablet extended release 24 hr 12.5 mg PO DAILY Xarelto 20 mg tablet 20 mg PO BEDTIME cholecalciferol (vitamin D3) 25 mcg (1,000 unit) capsule 25 mcg PO DAILY valsartan 160 mg tablet 160 mg PO DAILY Ultra CoQ10 75 mg capsule 75 mg PO DAILY (DME) nebulizers Misc See Rx Instructions .Route Rx Instructions: As directed chlorhexidine gluconate 0.12 % mouthwash 15 ml buccal DAILY 30 Days Qty: 473 11RF azelastine 137 mcg (0.1 %) spray,non-aerosol 2 spray intranasal BID Qty: 30 11RF fluticasone propionate 50 mcg/actuation spray,suspension 2 spray intranasal DAILY 30 Days Qty: 15.8 11RF Trelegy Ellipta 200-62.5-25 mcg blister with device 1 inh inhalation DAILY 30 Days Qty: 60 12RF Discharge Orders: Discharge Order (Routine); Ordered 06/11/25 Ordered By: Mahin Tinoco Diet: Advance to usual diet Activity on Discharge: As tolerated Stand Alone Forms: Patient Portal Discharge page Print Language: Kittitian Care Plan Goals: Complete course of Augmentin as ordered. Tramadol as needed for pain Health Concerns: Resume all other meds as outlined on transfer sheet Plan of Treatment: As per receiving facility Assessment: See discharge summary
--- NOTE | 2025-06-11 14:11 | PC.NURSE ---
Wound care per order, pt tolerated well, slightly tearful, family at bedside to provide support and comfort. Bilateral Knee wounds with granulation tissue, no odor, bloody drainage, moderate, raya wound slight redness, no s/s infection, plan d/c today to rehab.
[2025-06-11 15:20] VITALS: BP 116/57; PULSE 75; RESP 18; TEMP 36; O2SAT 96
--- NOTE | 2025-06-11 15:43 | PC.NURSE ---
Family concern about patient splint from ortho, expressed for HCP to call Ortho Office tomorrow to make follow up appointment for splint that Ortho placed. HCP in agreement with this plan.
== END 2025-06-11 15:44 | DRG 563 ==
LOC: HO.ED 20:55 → HO.EDOVER 20:56 → HO.S3 06-06 07:30
PROVIDERS: Family Medicine; Internal Medicine Critical Care Medicine; Admitting Provider Physician Assistant; Emergency Provider Emergency Medicine; PCP Nurse Practitioner Family; Visit Provider Hospitalist
DX: S52.602A Unspecified fracture of lower end of left ulna, initial encounter for closed fracture (principal); J21.9 Acute bronchiolitis, unspecified; J47.0 Bronchiectasis with acute lower respiratory infection; E87.1 Hypo-osmolality and hyponatremia; S81.012A Laceration without foreign body, left knee, initial encounter; I25.10 Atherosclerotic heart disease of native coronary artery without angina pectoris; D64.9 Anemia, unspecified; S43.102A Unspecified dislocation of left acromioclavicular joint, initial encounter; I48.0 Paroxysmal atrial fibrillation; W19.XXXA Unspecified fall, initial encounter; Z20.822 Contact with and (suspected) exposure to COVID-19; Z79.01 Long term (current) use of anticoagulants; Z79.51 Long term (current) use of inhaled steroids; Z79.899 Other long term (current) drug therapy
CPT/HCPCS: 36415; 70450; 71045; 72125; 73070; 73090; 73100; 73560; 80048; 80053; 80076; 82533; 82570; 82607; 82728; 82746; 83540; 83615; 83690; 83880; 83930; 83935; 84300; 84443; 84484; 85025; 85027; 85045; 85610; 86850; 86900; 86901; 86923; 87633; 93005; 93306; 94640; 97110; 97162; 97530; 99285; J0131; J1885; J2003; J2270; J2405; J2543; P9016; Q9957

== ENCOUNTER → 2025-06-05 14:53 | Outpatient (BNV) | payer MEDICARE, SELFPAY | PROVIDERS: Admitting Provider Physician Assistant; Emergency Provider Emergency Medicine; PCP Nurse Practitioner Family; Visit Provider Internal Medicine Cardiovascular Disease | DX: R94.31 Abnormal electrocardiogram [ECG] [EKG] (principal); Z04.3 Encounter for examination and observation following other accident | CPT/HCPCS: 93010 ==

== ENCOUNTER → 2025-06-05 14:53 | Outpatient (BNV) | payer MEDICARE, SELFPAY | PROVIDERS: Emergency Provider Emergency Medicine; PCP Nurse Practitioner Family; Visit Provider Radiology Diagnostic Radiology | DX: Z04.3 Encounter for examination and observation following other accident (principal); S80.912A Unspecified superficial injury of left knee, initial encounter; S52.602A Unspecified fracture of lower end of left ulna, initial encounter for closed fracture; M18.12 Unilateral primary osteoarthritis of first carpometacarpal joint, left hand; W19.XXXA Unspecified fall, initial encounter | CPT/HCPCS: 70450; 71045; 72125; 73070; 73090; 73100; 73560 ==

== ENCOUNTER 2025-06-05 20:51 | Outpatient (BNV) | payer MEDICARE, SELFPAY | END 2025-06-09 08:44 | PROVIDERS: Admitting Provider Physician Assistant; Emergency Provider Emergency Medicine; PCP Nurse Practitioner Family; Visit Provider Radiology Diagnostic Radiology | DX: J84.9 Interstitial pulmonary disease, unspecified (principal) | CPT/HCPCS: 71045 ==

== ENCOUNTER 2025-06-05 20:51 | Outpatient (BNV) | payer MEDICARE, SELFPAY | END 2025-06-06 07:00 | PROVIDERS: Admitting Provider Physician Assistant; Emergency Provider Emergency Medicine; PCP Nurse Practitioner Family; Visit Provider Internal Medicine Cardiovascular Disease | DX: I51.7 Cardiomegaly (principal); I35.0 Nonrheumatic aortic (valve) stenosis; I34.81 Nonrheumatic mitral (valve) annulus calcification | CPT/HCPCS: 93306 ==

== ENCOUNTER → 2025-06-05 20:51 | Outpatient (BNV) | payer MEDICARE, SELFPAY | PROVIDERS: Admitting Provider Physician Assistant; Emergency Provider Emergency Medicine; PCP Nurse Practitioner Family; Visit Provider Internal Medicine Critical Care Medicine | DX: I10 Essential (primary) hypertension (principal); E22.2 Syndrome of inappropriate secretion of antidiuretic hormone | CPT/HCPCS: 99232 ==

== ENCOUNTER → 2025-06-05 20:51 | Outpatient (BNV) | payer MEDICARE, SELFPAY | PROVIDERS: Admitting Provider Physician Assistant; Emergency Provider Emergency Medicine; PCP Nurse Practitioner Family; Visit Provider Physician Assistant | DX: S52.202A Unspecified fracture of shaft of left ulna, initial encounter for closed fracture (principal); S81.812A Laceration without foreign body, left lower leg, initial encounter | CPT/HCPCS: 99222; 99499 ==

== ENCOUNTER → 2025-06-05 20:51 | Outpatient (BNV) | payer MEDICARE, SELFPAY | PROVIDERS: Admitting Provider Physician Assistant; Emergency Provider Emergency Medicine; PCP Nurse Practitioner Family; Visit Provider Internal Medicine Hypertension Specialist | DX: E87.1 Hypo-osmolality and hyponatremia (principal) | CPT/HCPCS: 99232 ==

== ENCOUNTER → 2025-06-05 20:51 | Outpatient (BNV) | payer MEDICARE, SELFPAY | PROVIDERS: Admitting Provider Physician Assistant; Emergency Provider Emergency Medicine; PCP Nurse Practitioner Family; Visit Provider Family Medicine | DX: E87.1 Hypo-osmolality and hyponatremia (principal); E22.2 Syndrome of inappropriate secretion of antidiuretic hormone; S52.202A Unspecified fracture of shaft of left ulna, initial encounter for closed fracture | CPT/HCPCS: 99232; 99233 ==

== ENCOUNTER 2025-06-18 13:00 | Outpatient (REF) | payer MEDICARE, SELFPAY ==
--- OUTSIDE RECORDS SUMMARY | 2021-02-04 10:39 | XMS_ITS | Encounter Summary ---
Author Organization [facility] Address [address] [place] [address] Phone Care Team Providers Care Milling Machine Set Up Operator Name Role Phone Yareli Lobato GRAIN ELEVATOR MAN Primary Care Provider + Encounter Details Date Type Department Care Team (Late st Contact Info) Description 02/04/2021 11:39 AM EDT Hospital Encounter [facility] [address] [place] [address] Mia Danielle FNP [address] [place] [phone] [email or web address] Social History Tobacco Use Types [...] reportoriginally created by Onel Powers. Mia Danielle PACKER DENTURE IMG XR PELVIS Final Resul t documented in this encounter Visit Diagnoses Not on filedocumented in this encounter Care Teams Milling Machine Set Up Operator Relationship Specialty Start Date End Date Yareli Lobato NP [address] [place] [address] PCP - General Nurse Practitioner 10/11/18 documented as of this encounter Additional Source Comments The information contained in this document represents components of the legal health record. It is not the complete legal health record.[facility]
--- OUTSIDE RECORDS SUMMARY | 2021-02-04 10:39 | XMS_ITS | Encounter Summary ---
Author Organization [facility] Address [address] [place] [address] Phone Care Team Providers Care Build Manager Name Role Phone Yareli Lobato HEAD CHARRER Primary Care Provider + Encounter Details Date Type Department Care Team (Late st Contact Info) Description 02/04/2021 11:39 AM EDT Hospital Encounter [facility] [address] [place] [address] Mia Danielle FNP [address] [place] [phone] JOANNE@[email or web address] Social History Tobacco Use Types Packs/Day [...] reportoriginally created by Onel Powers. Mia Danielle PROJECT MANAGER INTERIOR DESIGN IMG XR UPPER EXTREMITY Ana l Result documented in this encounter Visit Diagnoses Not on filedocumented in this encounter Care Teams Build Manager Relationship Specialty Start Date End Date Yareli Lobato NP [address] [place] [address] PCP - General Nurse Practitioner 10/11/18 documented as of this encounter Additional Source Comments The information contained in this document represents components of the legal health record. It is not the complete legal health record.[facility]
--- OUTSIDE RECORDS SUMMARY | 2024-05-02 09:30 | XMS_ITS ---
Author Organization [facility] Address [address] [place] [address] Care Team Providers Care Station Mechanic Apprentice Name Role Phone Arielle Smith Primary Care Provider Unavailabl Lani Godoy [phone] Encounters Encounter Location Date Provider Diagnosis [address] [address] 05/02/2024 Lani Ricketts Plan Of Treatment No Information Progress Notes * Lainey MORRELL RDOB:[birth year] (85 yo F)Acc No.[id number]:05/02/2024 Progress Note Patient: Lainey MCNAIR Provider: Chanda Ricketts DPM :1940 A ge:84 Y S ex:Female Date:05/02/2024 Address:[address] [place] [phone] Pcp:Arielle Smith Subjective: * Chief Complaints: * [...] 0 05/02/2024 Generated for Printi ng/Fanayg/eTransmitting on: 08/18/2024 03:45 PM EST
--- OUTSIDE RECORDS SUMMARY | 2025-06-09 10:00 | XMS_ITS ---
Author Organization [facility] Address [address] [place] [address] Care Team Providers Care Bricklayer'S Assistant Name Role Phone Arielle Smith Primary Care Provider Unavailabl Lani Godoy [phone] Encounters Encounter Location Date Provider Diagnosis [address] [address] 06/09/2025 Lani Ricketts Plan Of Treatment No Information Progress Notes * Lainey MORRELL RDOB:[birth year] (85 yo F)Acc No.[id number]:06/09/2025 Progress Note Patient: Lainey MCNAIR Provider: Chanda Ricketts DPM :1940 A ge:85 Y S ex:Female Date:06/09/2025 Address:[address] [place] [phone] Pcp:Arielle Smith Subjective: * Chief Complaints: * [...] DPM Date: Generated for Printi ng/Fanayg/eTransmitting on: 08/18/2024 03:45 PM EST
--- NOTE | ~2025-06-18 | XR_ITS ---
EXAMINATION: XR WRIST, LEFT CLINICAL INFORMATION: M25.532 - Pain in left wrist , follow-up ulnar fracture COMPARISON: 06/05/2025 TECHNIQUE: PA, lateral, and oblique views of the left wrist. FINDINGS: There is diffuse osteopenia. There is severe narrowing with sclerosis and marginal osteophytes involving the first carpal metacarpal joint. There is mild subchondral sclerosis and narrowing of the STT joint. There is faint calcification in the triangular fibrocartilage and the soft tissues dorsal and palmar to the carpus.. Again seen is a transverse fracture involving the distal third diaphysis of the ulna with minimal dorsal step off . There is possible faint periosteal new bone formation. XR/XR wrist LT min 3V IMPRESSION: Stable fracture of the distal diaphysis of the left ulna with possible early signs of healing. Degenerative changes involving the STT and CMC joints with chondrocalcinosis. Osteopenia. Electronically signed by: Simon Cam MD 06/18/2025 02:23 PM [facility]
--- OUTSIDE RECORDS SUMMARY | 2025-06-18 15:44 | XMS_ITS | Encounter Summary ---
Author Organization [facility] Address [address] [place] [address] Care Team Providers Care Escort Car Driver Name Role Phone Lalito Sanchez MD Primary Care Provider [phone]- [phone] Encounter Details Date Type Department Care Team (Late st Contact Info) Description 06/13/2025 Lab Requisition [facility] - Main Lab [address] [facility] [place] [address] Lalito Sanchez MD [address] [place] [address] Unspecified atrial fibrillation (CMS/HCC V24, CMS/HCC V28); Gastro-esophageal reflux disease without esophagitis; Unspecified asthma, uncomplicated; Essential (primary) hypertension Social History Tobacco Use Types Packs/Day Years Used Date Smoking Tobacco: Never Smokeless Tobacco: Never Comments Unknown Sex and Gender Information Value Date Recorded Sex Assigned at Not on file Legal Sex Female 11:41 PM EST Gender Identity Not on file Sexual Orientation Not on file documented as of this encounter Plan of Treatment Not on file documented as of this encounter Procedures Procedure Name Priority Date/Time Associated Diagnosis Comments COMPLETE BLOOD COUNT Routine 06/16/2025 8:29 AM EST Unspecified atrial fibrillation (CMS/HCC V24, CMS/HCC V28) Gastro-esophageal reflux disease without esophagitis Unspecified asthma, uncomplicated Essential (primary) hypertension BASIC METABOLIC PANEL Routine 06/16/2025 8:29 AM EST Unspecified atrial fibrillation (CMS/HCC V24, CMS/HCC V28) Gastro-esophageal reflux disease without esophagitis Unspecified asthma, uncomplicated Essential (primary) hypertension documented in this encounter Results * Basic metabolic panel (06/16/2025 8:29 AM EST) Sodium 133 133 - 145 mmol/L LAB CHEMISTRY METHOD 06/16/2025 2:06 PM [facility] Potassium 4.3 3.5 - 5.5 mmol/L LAB CHEMISTRY METHOD 06/16/2025 2:06 PM [facility] Chloride 98 96 - 110 mmol/L LAB CHEMISTRY METHOD 06/16/2025 2:06 PM [facility] CO2 27 21 - 32 mmol/L LAB CHEMISTRY METHOD 06/16/2025 2:06 PM [facility] Anion Gap 8 3 - 11 LAB CHEMISTRY METHOD 06/16/2025 2:06 PM [facility] Glucose 82 70 - 100 mg/dL LAB CHEMISTRY METHOD 06/16/2025 2:06 PM [facility] BUN 15 5 - 25 mg/dL LAB CHEMISTRY METHOD 06/16/2025 2:06 PM [facility] Creatinine 0.50 0.50 - 1.10 mg/dL LAB CHEMISTRY METHOD 06/16/2025 2:06 PM [facility] eGFR 93 >=60 mL/min/1. 73m2 LAB CHEMISTRY METHOD 06/16/2025 2:06 PM [facility] Comment:Calculation based on the Chronic Kidney Disease Epidemiology Collaboration (CKD-EPI) equation refit without adjustment for race. BUN/Creatinine Ratio 30.0 LAB CHEMISTRY METHOD 06/16/2025 2:06 PM [facility] Calcium 9.0 8.5 - 10.5 mg/dL LAB CHEMISTRY METHOD 06/16/2025 2:06 PM [facility] Blood Venous blood specimen / Unknown Venipuncture / Unknown 06/16/2025 8:29 AM EST 06/16/2025 11:17 AM EST us Lalito Snachez MD LAB BLOOD ORDERABLES Final Result [facility] [address] [place] [address], * (ABNORMAL) Complete blood count (06/16/2025 8:29 AM EST) [facility] WBC 9.3 4.8 - 10.8 K/mcL LAB HEMETOLOGY METHOD 06/16/2025 1:55 PM EST [facility] RBC 3.80 3.80 - 4.80 M/mcL LAB HEMETOLOGY METHOD 06/16/2025 1:55 PM EST [facility] Hemoglobin 11.0(L) 11.5 - 16.0 g/dL LAB HEMETOLOGY METHOD 06/16/2025 1:55 PM EST [facility] Hematocrit 35.3 35.0 - 47.0 % LAB HEMETOLOGY METHOD 06/16/2025 1:55 PM EST [facility] MCV 92.4 79.0 - 98.0 FL LAB HEMETOLOGY METHOD 06/16/2025 1:55 PM EST [facility] MCH 28.8 27.0 - 32.0 pcg LAB HEMETOLOGY METHOD 06/16/2025 1:55 PM EST [facility] MCHC 31.2(L) 32.0 - 37.0 g/dL LAB HEMETOLOGY METHOD 06/16/2025 1:55 PM EST [facility] RDW 15.2(H) 11.0 - 15.0 % LAB HEMETOLOGY METHOD 06/16/2025 1:55 PM EST [facility] Platelets 544(H) 130 - 400 K/mcL LAB HEMETOLOGY METHOD 06/16/2025 1:55 PM [facility] MPV 8.2 7.0 - 11.0 FL LAB HEMETOLOGY METHOD 06/16/2025 1:55 PM EST [facility] NRBC 0.0 <1.0 % LAB HEMETOLOGY METHOD 06/16/2025 1:55 PM EST [facility] NRBC Absolute 0.00 <0.10 K/mcL LAB HEMETOLOGY METHOD 06/16/2025 1:55 PM EST [facility] Blood Venous blood specimen / Unknown Venipuncture / Unknown 06/16/2025 8:29 AM EST 06/16/2025 11:17 AM EST us Lalito Sanchez MD LAB BLOOD ORDERABLES Final Result [facility] [address] [place] [address], documented in this encounter Visit Diagnoses Diagnosis Unspecified atrial fibrillation (CMS/HCC V24, CMS/HCC V28) Gastro-esophageal reflux disease without esophagitis Unspecified asthma, uncomplicated Essential (primary) hypertension Unspecified essential hypertension documented in this encounter Care Teams Escort Car Driver Relationship Specialty Start Date End Date Lalito Sanchez MD [address] [place] [id number] PCP - General Internal Medicine 06/12/25 documented as of this encounter
--- OUTSIDE RECORDS SUMMARY | 2025-06-18 15:44 | XMS_ITS | Encounter Summary ---
Author Organization [facility] Address [address] [place] [address] Care Team Providers Care Computer Architect Name Role Phone Lalito Sanchez MD Primary Care Provider [phone]- [phone] Encounter Details Date Type Department Care Team (Late st Contact Info) Description 06/12/2025 Lab Requisition [facility] - Main Lab [address] [facility] [place] [address] Lalito Sanchez MD [address] [place] [address] Unspecified atrial fibrillation (CMS/HCC V24, CMS/HCC V28); Essential (primary) hypertension; Gastro-esophageal reflux disease without esophagitis; Other asthma; Repeated falls Social History Tobacco Use Types Packs/Day Years [...] Associated Diagnosis Comments COMPLETE BLOOD COUNT Routine 06/12/2025 4:41 AM EDT Unspecified atrial fibrillation (CMS/HCC V24, CMS/HCC V28) Essential (primary) hypertension Gastro-esophageal reflux disease without esophagitis Other asthma Repeated falls COMPREHENSIVE METABOLIC PANEL Routine 06/12/2025 4:41 AM EDT Unspecified atrial fibrillation (CMS/HCC V24, CMS/HCC V28) Essential (primary) hypertension Gastro-esophageal reflux disease without esophagitis Other asthma Repeated falls documented in this encounter Results * (ABNORMAL) Comprehensive metabolic panel (06/12/2025 4:41 AM EDT) Sodium 133 133 - 145 mmol/L LAB CHEMISTRY METHOD 06/12/2025 10:38 AM [facility] Potassium 4.3 3.5 - 5.5 mmol/L LAB CHEMISTRY METHOD 06/12/2025 10:38 AM [facility] Chloride 100 96 - 110 mmol/L LAB CHEMISTRY METHOD 06/12/2025 10:38 AM [facility] CO2 25 21 - 32 mmol/L LAB CHEMISTRY METHOD 06/12/2025 10:38 AM [facility] Anion Gap 8 3 - 11 LAB CHEMISTRY METHOD 06/12/2025 10:38 AM [facility] Glucose 86 70 - 100 mg/dL LAB CHEMISTRY METHOD 06/12/2025 10:38 AM [facility] BUN 17 5 - 25 mg/dL LAB CHEMISTRY METHOD 06/12/2025 10:38 AM [facility] Creatinine 0.53 0.50 - 1.10 mg/dL LAB CHEMISTRY METHOD 06/12/2025 10:38 AM [facility] eGFR 92 >=60 mL/min/1. 73m2 LAB CHEMISTRY METHOD 06/12/2025 10:38 AM [facility] Comment:Calculation based on the Chronic Kidney Disease Epidemiology Collaboration (CKD-EPI) equation refit without adjustment for race. BUN/Creatinine Ratio 32.1 LAB CHEMISTRY METHOD 06/12/2025 10:38 AM [facility] Calcium 8.2(L) 8.5 - 10.5 mg/dL LAB CHEMISTRY METHOD 06/12/2025 10:38 AM [facility] AST (SGOT) 70(H) 10 - 42 unit/L LAB CHEMISTRY METHOD 06/12/2025 10:38 AM [facility] ALT (SGPT) 48 10 - 60 unit/L LAB CHEMISTRY METHOD 06/12/2025 10:38 AM EDT [facility] Alkaline Phosphatase 104 42 - 121 unit/L LAB CHEMISTRY METHOD 06/12/2025 10:38 AM EDT [facility] Total Protein 4.9(L) 6.0 - 8.0 g/dL LAB CHEMISTRY METHOD 06/12/2025 10:38 AM T [facility] Albumin 2.0(L) 3.2 - 5.0 g/dL LAB CHEMISTRY METHOD 06/12/2025 10:38 AM EDT [facility] Total Bilirubin 0.4 0.0 - 1.4 mg/dL LAB CHEMISTRY METHOD 06/12/2025 10:38 AM [facility] Blood Venous blood specimen / Unknown Venipuncture / Unknown 06/12/2025 4:41 AM EDT 06/12/2025 9:23 AM EDT Lalito Sanchez MD LAB BLOOD ORDERABLES Final Result [facility] [address] [place] [address], * (ABNORMAL) Complete blood count (06/12/2025 4:41 AM EDT) WBC 7.1 4.8 - 10.8 K/mcL LAB HEMETOLOGY METHOD 06/12/2025 9:46 AM EDT [facility] RBC 3.20(L) 3.80 - 4.80 M/[facility] LAB HEMETOLOGY METHOD 06/12/2025 9:46 AM EDT [facility] Hemoglobin 9.5(L) 11.5 - 16.0 g/dL LAB HEMETOLOGY METHOD 06/12/2025 9:46 AM T [facility] Hematocrit 29.1(L) 35.0 - 47.0 % LAB HEMETOLOGY METHOD 06/12/2025 9:46 AM EDT [facility] MCV 91.2 79.0 - 98.0 FL LAB HEMETOLOGY METHOD 06/12/2025 9:46 AM EDT [facility] MCH 29.8 27.0 - 32.0 pcg LAB HEMETOLOGY METHOD 06/12/2025 9:46 AM EDT [facility] MCHC 32.6 32.0 - 37.0 g/dL LAB HEMETOLOGY METHOD 06/12/2025 9:46 AM EDT [facility] RDW 15.9(H) 11.0 - 15.0 % LAB HEMETOLOGY METHOD 06/12/2025 9:46 AM EDT [facility] Platelets 391 130 - 400 K/mcL LAB HEMETOLOGY METHOD 06/12/2025 9:46 AM EDT [facility] MPV 8.2 7.0 - 11.0 FL LAB HEMETOLOGY METHOD 06/12/2025 9:46 AM EDT [facility] NRBC 0.0 <1.0 % LAB HEMETOLOGY METHOD 06/12/2025 9:46 AM EDT [facility] NRBC Absolute 0.00 <0.10 K/mcL LAB HEMETOLOGY METHOD 06/12/2025 9:46 AM [facility] Blood Venous blood specimen / Unknown Venipuncture / Unknown 06/12/2025 4:41 AM EDT 06/12/2025 9:23 AM EDT us Lalito Sanchez MD LAB BLOOD ORDERABLES Final Result [facility] [address] [place] [address], documented in this encounter Visit Diagnoses Diagnosis Unspecified atrial fibrillation (CMS/HCC V24, CMS/HCC V28) Essential (primary) hypertension Unspecified essential hypertension Gastro-esophageal reflux disease without esophagitis Other asthma Repeated falls documented in this encounter Care Teams Computer Architect Relationship Specialty Start Date End Date Lalito Sanchez MD [address] [place] [address] PCP - General Internal Medicine 06/12/25 documented as of this encounter
--- OUTSIDE RECORDS SUMMARY | 2025-06-18 15:44 | XMS_ITS | Clinical Summary ---
Author Organization [address] [facility] Address [address] [place] [address] Phone Care Team Providers Care Dioramist Name Role Phone Lalito Sanchez MD Primary Care Provider +1- [phone] Encounters Date Type Department Care Team Description 06/13/2025 Lab Requisition [facility] Lab [address] [place] [id number] Lalito Sanchez MD Unspecified atrial fibrillation ([facility] V24, [facility] V28); Gastro-esophageal reflux disease without esophagitis; Unspecified asthma, uncomplicated; Essential (primary) hypertension 06/12/2025 Lab Requisition [facility] [address] [place] [phone] Lalito Sanchez MD Unspecified atrial fibrillation ([facility] V24, [facility] V28); Essential (primary) hypertension; Gastro-esophageal reflux disease without esophagitis; Other asthma; Repeated falls from Last 3 Months Social History Tobacco Use Types Packs/Day Years Used Date Smoking Tobacco: Never Smokeless Tobacco: Never Comments Unknown Sex and Gender Information Value Date Recorded Sex Assigned at Not on file Legal Sex Female 11:41 PM EST Gender Identity Not on file Sexual Orientation Not on file Obstetrics History Plan of Treatment Health Maintenance Due Date Last Done Comments DTaP,Tdap,and Td Vaccines (1 - Tdap) 1961 Pneumococcal Vaccine: 50+ Years (1 of 2 - PCV) 1961 Zoster Vaccines (1 of 2) 1992 RSV Immunization Adult Patients (1 - 1-dose 75+ series) 2017 Cholesterol Screening (Lipid Panel) 09/13/2023 Falls Risk Assessment 09/13/2023 Medicare Annual Wellness Visit 09/13/2023 Osteoporosis Screening (Bone Density Screening) 09/13/2023 Social Influencers of Health Screening 09/13/2023 Depression Screening 08/14/2024 COVID-19 Vaccine ( - 2023-2 5 season) 2025 Influenza Vaccine (#1) 2025 Hypertension/CHF/CAD Annual BMP Blood Test 06/16/2026 06/16/2025, 06/12/2025 HIB Vaccines Aged Out No longer eligi ble based on patient's age to complete this topic HPV Vaccines Aged Out No longer eligi ble based on patient's age to complete this topic Hepatitis A Vaccines Aged Out No long er eligible based on patient's age to complete this topic Hepatitis B Vaccines Aged Out No long er eligible based on patient's age to complete this topic IPV Vaccines Aged Out No longer eligi ble based on patient's age to complete this topic MMR Vaccines Aged Out No longer eligi ble based on patient's age to complete this topic Meningococcal ACWY Vaccine Aged Out N o longer eligible based on patient's age to complete this topic Meningococcal B Vaccine Aged Out No l onger eligible based on patient's age to complete this topic RSV Immunization Patients Under 20 months Aged Out No longer eligible b ased on patient's age to complete this topic Varicella Vaccines Aged Out No longer eligible based on patient's age to complete this topic Procedures Procedure Name Priority Date/Time Associated Diagnosis Comments BASIC METABOLIC PANEL Routine 06/16/2025 8:29 AM EST Unspecified atrial fibrillation (CMS/HCC V24, CMS/HCC V28) Gastro-esophageal reflux disease without esophagitis Unspecified asthma, uncomplicated Essential (primary) hypertension COMPLETE BLOOD COUNT Routine 06/16/2025 8:29 AM EST Unspecified atrial fibrillation (CMS/HCC V24, CMS/HCC V28) Gastro-esophageal reflux disease without esophagitis Unspecified asthma, uncomplicated Essential (primary) hypertension COMPREHENSIVE METABOLIC PANEL Routine 06/12/2025 4:41 AM EDT Unspecified atrial fibrillation (CMS/HCC V24, CMS/HCC V28) Essential (primary) hypertension Gastro-esophageal reflux disease without esophagitis Other asthma Repeated falls COMPLETE BLOOD COUNT Routine 06/12/2025 4:41 AM EDT Unspecified atrial fibrillation (CMS/HCC V24, CMS/HCC V28) Essential (primary) hypertension Gastro-esophageal reflux disease without esophagitis Other asthma Repeated falls from Last 3 Months Results * (ABNORMAL) Complete blood count (06/16/2025 8:29 AM EST) Only the most recent of2 resultswithin the time period is included. WBC 9.3 4.8 - 10.8 K/mcL LAB HEMETOLOGY METHOD 06/16/2025 1:55 PM [facility] RBC 3.80 3.80 - 4.80 M/mcL LAB HEMETOLOGY METHOD 06/16/2025 1:55 PM [facility] Hemoglobin 11.0(L) 11.5 - 16.0 g/dL LAB HEMETOLOGY METHOD 06/16/2025 1:55 PM [facility] Hematocrit 35.3 35.0 - 47.0 % LAB HEMETOLOGY METHOD 06/16/2025 1:55 PM [facility] MCV 92.4 79.0 - 98.0 FL LAB HEMETOLOGY METHOD 06/16/2025 1:55 PM [facility] MCH 28.8 27.0 - 32.0 pcg LAB HEMETOLOGY METHOD 06/16/2025 1:55 PM [facility] MCHC 31.2(L) 32.0 - 37.0 g/dL LAB HEMETOLOGY METHOD 06/16/2025 1:55 PM [facility] RDW 15.2(H) 11.0 - 15.0 % LAB HEMETOLOGY METHOD 06/16/2025 1:55 PM [facility] Platelets 544(H) 130 - 400 K/mcL LAB HEMETOLOGY METHOD 06/16/2025 1:55 PM [facility] MPV 8.2 7.0 - 11.0 FL LAB HEMETOLOGY METHOD 06/16/2025 1:55 PM [facility] NRBC 0.0 <1.0 % LAB HEMETOLOGY METHOD 06/16/2025 1:55 PM [facility] NRBC Absolute 0.00 <0.10 K/mcL LAB HEMETOLOGY METHOD 06/16/2025 1:55 PM [facility] Blood Venous blood specimen / Unknown Venipuncture / Unknown 06/16/2025 8:29 AM EST 06/16/2025 11:17 AM EST Lalito Sanchez MD LAB BLOOD ORDERABLES Final Result [facility] [address] [place] [address], * Basic metabolic panel (06/16/2025 8:29 AM EST) Sodium 133 133 - 145 mmol/L LAB CHEMISTRY METHOD 06/16/2025 2:06 PM [facility] Potassium 4.3 3.5 - 5.5 mmol/L LAB CHEMISTRY METHOD 06/16/2025 2:06 PM [facility] Chloride 98 96 - 110 mmol/L LAB CHEMISTRY METHOD 06/16/2025 2:06 PM [facility] CO2 27 21 - 32 mmol/L LAB CHEMISTRY METHOD 06/16/2025 2:06 PM [facility] Anion Gap 8 3 - 11 LAB CHEMISTRY METHOD 06/16/2025 2:06 PM [facility] Glucose 82 70 - 100 mg/dL LAB CHEMISTRY METHOD 06/16/2025 2:06 PM [facility] BUN 15 5 - 25 mg/dL LAB CHEMISTRY METHOD 06/16/2025 2:06 PM [facility] Creatinine 0.50 0.50 - 1.10 mg/dL LAB CHEMISTRY METHOD 06/16/2025 2:06 PM EST [facility] eGFR 93 >=60 mL/min/1. 73m2 LAB CHEMISTRY METHOD 06/16/2025 2:06 PM [facility] Comment:Calculation based on the Chronic Kidney Disease Epidemiology Collaboration (CKD-EPI) equation refit without adjustment for race. BUN/Creatinine Ratio 30.0 LAB CHEMISTRY METHOD 06/16/2025 2:06 PM [facility] Calcium 9.0 8.5 - 10.5 mg/dL LAB CHEMISTRY METHOD 06/16/2025 2:06 PM [facility] Blood Venous blood specimen / Unknown Venipuncture / Unknown 06/16/2025 8:29 AM EST 06/16/2025 11:17 AM EST Lalito Sanchez MD LAB BLOOD ORDERABLES Final Result [facility] [address] [place] [address], [place] [phone] * (ABNORMAL) Comprehensive metabolic panel (06/12/2025 4:41 AM EDT) Sodium 133 133 - 145 mmol/L LAB CHEMISTRY METHOD 06/12/2025 10:38 AM [facility] Potassium 4.3 3.5 - 5.5 mmol/L LAB CHEMISTRY METHOD 06/12/2025 10:38 AM T [facility] Chloride 100 96 - 110 mmol/L LAB CHEMISTRY METHOD 06/12/2025 10:38 AM [facility] CO2 25 21 - 32 mmol/L LAB CHEMISTRY METHOD 06/12/2025 10:38 AM [facility] Anion Gap 8 3 - 11 LAB CHEMISTRY METHOD 06/12/2025 10:38 AM [facility] Glucose 86 70 - 100 mg/dL LAB CHEMISTRY METHOD 06/12/2025 10:38 AM [facility] BUN 17 5 - 25 mg/dL LAB CHEMISTRY METHOD 06/12/2025 10:38 AM [facility] Creatinine 0.53 0.50 - 1.10 mg/dL LAB CHEMISTRY METHOD 06/12/2025 10:38 AM [facility] eGFR 92 >=60 mL/min/1. 73m2 LAB CHEMISTRY METHOD 06/12/2025 10:38 AM [facility] Comment:Calculation based on the Chronic Kidney Disease Epidemiology Collaboration (CKD-EPI) equation refit without adjustment for race. BUN/Creatinine Ratio 32.1 LAB CHEMISTRY METHOD 06/12/2025 10:38 AM [facility] Calcium 8.2(L) 8.5 - 10.5 mg/dL LAB CHEMISTRY METHOD 06/12/2025 10:38 AM [facility] AST (SGOT) 70(H) 10 - 42 unit/L LAB CHEMISTRY METHOD 06/12/2025 10:38 AM [facility] ALT (SGPT) 48 10 - 60 unit/L LAB CHEMISTRY METHOD 06/12/2025 10:38 AM [facility] Alkaline Phosphatase 104 42 - 121 unit/L LAB CHEMISTRY METHOD 06/12/2025 10:38 AM [facility] Total Protein 4.9(L) 6.0 - 8.0 g/dL LAB CHEMISTRY METHOD 06/12/2025 10:38 AM [facility] Albumin 2.0(L) 3.2 - 5.0 g/dL LAB CHEMISTRY METHOD 06/12/2025 10:38 AM [facility] Total Bilirubin 0.4 0.0 - 1.4 mg/dL LAB CHEMISTRY METHOD 06/12/2025 10:38 AM [facility] Blood Venous blood specimen / Unknown Venipuncture / Unknown 06/12/2025 4:41 AM EDT 06/12/2025 9:23 AM EDT us Lalito Sanchez MD LAB BLOOD ORDERABLES Final Result [facility] [address] [place] [address], [place] [phone] from Last 3 Months Insurance [address]ICARE [facility] Care Teams Dioramist Relationship Specialty Start Date End Date Lalito Sanchez MD [address] [place] [address] PCP - General Internal Medicine 06/12/25
--- OUTSIDE RECORDS SUMMARY | 2025-06-18 15:45 | XMS_ITS | Patient Health Record ---
Author Organization [facility] Address [address] [place] [address] Care Team Providers Care Foreign Broadcast Specialist Name Role Phone Sarah Arielle Primary Care Provider Unavailabl e Black, Lani Unavailable [phone] Allergies No Known Allergies Reason For Referral [...] Ordered Date Performed Result Body Sit e 20596-KTWMTZH NAIL, 6 OR MORE 08/26/2024 N/A 99532-Zgvkszqo Plate 08/26/2024 N/A 97792-UNHURBB NAIL, 6 OR MORE 11/25/2024 N/A 67371,T1408-CTE TENDON SHEATH/LIGAMENT 11/25/2024 N/A 99756-MZNAUWU NAIL, 6 OR MORE 03/03/2025 N/A Encounters Encounter Location Date Provider Diagnosis [facility] [address] [address] 08/26/2024 Lani Black Tinea unguium B35.1 ; Pressure injury of right heel, unstageable L89.610 ; Pain in right toe(s) M79.674 ; Pain in left toe(s) M79.675 and Ingrown nail L60.0 [facility] [address] [address] 11/25/2024 Lani Black Tinea unguium B35.1 ; Bursitis of right foot M77.51 ; Pain in right toe(s) M79.674 ; Pain in left toe(s) M79.675 ; Pain in right foot M79.671 ; Plantar fasciitis of right foot M72.2 and 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 [facility] [address] [place] [address] 03/03/2025 Lani Black Tinea unguium B35.1 ; Bursitis of right foot M77.51 ; Pain in right toe(s) M79.674 ; Pain in left toe(s) M79.675 ; Pain in right foot M79.671 ; Plantar fasciitis of right foot M72.2 and 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 [facility] [address] [address] 06/06/2025 Lani Ricketts Assessments Encounter Date Diagnosis (ICD [...] X ray : Foot, right 3V 06/25/2013 21222-TMDOSPI NAIL, 6 OR MORE 06/21/2021 60750-EDPVCGM NAIL, 6 OR MORE 10/11/2021 12499-HXXZPTZ NAIL, 6 OR MORE 01/20/2022 51395-YOWVLMF NAIL, 6 OR MORE 04/28/2022 11502-FTEUHCS NAIL, 6 OR MORE 06/01/2020 15640-QRHLASP NAIL, 6 OR MORE 11/23/2020 10938-ATORDMK NAIL, 6 OR MORE 03/01/2021 68085-JDCEOLL NAIL, 6 OR MORE 05/06/2024 45364-FPCRYOZ NAIL, 6 OR MORE 08/26/2024 79966-KLUIHFC NAIL, 6 OR MORE 11/25/2024 14972-WMGSMGU NAIL, 6 OR MORE 03/03/2025 02494-XUEABOJ NAIL, 6 OR MORE 08/25/2022 27174-FIIRZDR NAIL, 6 OR MORE 12/01/2022 92301-JCQLOWV NAIL, 6 OR MORE 03/13/2023 46191-SLSOSZS NAIL, 6 OR MORE 06/26/2023 66351-KUETXRP NAIL, 6 OR MORE 10/05/2023 36066-QHJMRZZ NAIL, 6 OR MORE 01/11/2024 54826-IGZWDVC NAIL, 6 OR MORE 05/12/2014 10941-DTDWWYM NAIL, 6 OR MORE 08/18/2014 01645-YFLQTPL NAIL, 6 OR MORE 12/02/2014 28601-YHJMBKC NAIL, 6 OR MORE 05/06/2015 73581-FGANIVZ NAIL, 6 OR MORE 09/07/2015 14122-MGJYVGC NAIL, 6 OR MORE 02/08/2016 06477-DVBXEVQ NAIL, 6 OR MORE 06/09/2016 06056-ABADTGK NAIL, 6 OR MORE 11/02/2016 03491-TYTCWPD NAIL, 6 OR MORE 03/07/2017 86232-EPURLSM NAIL, 6 OR MORE 05/15/2017 97069-PRTPNKV NAIL, 6 OR MORE 08/21/2017 09081-DJCIDYX NAIL, 6 OR MORE 11/23/2017 07428-LOGPPCC NAIL, 6 OR MORE 02/05/2018 12217-KMAWRMJ NAIL, 6 OR MORE 05/07/2018 72191-QWARRIH NAIL, 6 OR MORE 08/20/2018 64388-QKWAZTC NAIL, 6 OR MORE 06/08/2011 75203-UZTFAJQ NAIL, 6 OR MORE 09/07/2011 23580-SFRPTIT NAIL, 6 OR MORE 11/16/2011 74934-BCLDUXE NAIL, 6 OR MORE 02/01/2012 41139-LINFFAG NAIL, 6 OR MORE 04/11/2012 07191-BCIATCC NAIL, 6 OR MORE 05/07/2012 90795-FVUVYAP NAIL, 6 OR MORE 07/11/2012 43903-LLBLMZQ NAIL, 6 OR MORE 10/10/2012 44967-QOEZDBY NAIL, 6 OR MORE 12/17/2012 09265-DRASPHI NAIL, 6 OR MORE 04/08/2013 40355-WBJFWCU NAIL, 6 OR MORE 06/25/2013 51510-GELPSON NAIL, 6 OR MORE 07/29/2013 20275-MFJTIHZ NAIL, 6 OR MORE 09/24/2013 19281-MYMNVPE NAIL, 6 OR MORE 12/09/2013 71667-CDNBMLE NAIL, 6 OR MORE 02/24/2014 39214-EDJHLSY NAIL, 6 OR MORE 11/19/2018 03977-ZBUAYZC NAIL, 6 OR MORE 02/25/2019 46162-UXIQNIK NAIL, 6 OR MORE 06/03/2019 52068-DCZRSDQ NAIL, 6 OR MORE 08/26/2019 03756-SXIQDDF NAIL, 6 OR MORE 03/04/2020 97245-Eqrhjlro Plate 08/20/2018 70365-Qdpzmtpa Plate 08/26/2024 27049-Ddtcyrgd Plate 03/01/2021 03851-Yyyndzlq Plate 06/21/2021 48484- Debride <25 sq cm 08/19/2021 89755- Debride <25 sq cm 10/11/2021 24255- Debride <25 sq cm 08/25/2022 49328- Debride <25 sq cm 06/21/2021 48058- Debride <25 sq cm 05/30/2024 96896- Debride <25 sq cm 12/14/2023 22458- Debride <25 sq cm 06/26/2023 40741- Debride <25 sq cm 03/04/2020 48005- Debride <25 sq cm 06/01/2020 79531 I&D ABSCESS- SIMPLE,SINGLE 024 87634, Y1436-CUIVZ/INJECT, JOINT/BURSA 1 08/25/201224654,Y1087-QCS TENDON SHEATH/LIGAMENT 0 11/25/2024 Insurance Providers Payer Name Payer Address Payer Phone Subscriber Number Group Number Insured Name Patient Relationship to Insured Coverage Start Date Coverage End Date Medicare National [employer] [address] [facility] [address] [id number] Lainey Floyd Self - patient is the insured 7 [employer] [address] [place] [address] [id number] Lainey Floyd Self - patient is the insured Medical (General) History Medical History History ICD Code chicken pox asthma Surgical History Surgery Date(Month/Year) appendectomy 1957 carpal tunnel release 04/10/2017 Left Knee replacement 02/02 carpal tunnel surgery 01/04 Hospitalization History Reason Date(Month/Year)
--- OUTSIDE RECORDS SUMMARY | 2025-06-18 15:45 | XMS_ITS | Encounter Summary ---
Author Organization [facility] Address [address] [place] [phone] Phone Care Team Providers Care Merry Go Round Attendant Name Role Phone Yareli Lobato DIRECTOR VOLUNTEER SERVICES Primary Care Provider + Reason for Referral * Physical Therapy (Routine) - Closed Specialty Diagnoses / Procedures Referred By Stu quijano Referred To Contact Physical Therapy Diagnoses Encounter for rehabilitation System, Provider Not In, [facility] [phone] [place] [address] Phone: tel: Referral ID Status Reason Start Date Expiration Date Visits Re quested Visits Authorized [id number] Closed 10/30/2018 08/13/2019 99 99 Encounter Details Date Type Department Care Team (Latest Contact Info) Description 10/11/2018 Transcribe Orders [facility] [address] [place] [phone] Yareli Lobato, DIRECTOR VOLUNTEER SERVICES [address] [place] [address] Encounter for rehabilitation (Primary Dx) Social History [...] Diagnoses Orde r Schedule Ambulatory referral to [facility] Physical Therapy Outpatient Referral Routine Encounter for rehabilitation Ordered: 10/11/2018 documented as of this encounter Visit Diagnoses Diagnosis Encounter for rehabilitation- Primary documented in this encounter Care Teams Merry Go Round Attendant Relationship Specialty Start Date End Date Yareli Lobato NP [address] [place] [address] PCP - General Nurse Practitioner 10/11/18 documented as of this encounter Additional Source Comments The information contained in this document represents components of the legal health record. It is not the complete legal health record.[facility]
--- OUTSIDE RECORDS SUMMARY | 2025-06-18 15:46 | XMS_ITS | Clinical Summary ---
Author Organization [facility] Address [address] [facility] [address] [place] [address] Phone Care Team Providers Care Prosthetist Name Role Phone Yareli Lobato NP Primary [...] Department Care Team Description 04/15/2025 Transcribe Orders [facility] [address] [place] [address] [place] [address] Jennifer Kuhn Encounter for rehabilitation (Primary Dx) from Last 3 Months Social History Tobacco Use Types Packs/Day Years Used Date Smoking Tobacco: Never Smokeless Tobacco: Never Education Answer Date Recorded Are you interested in more education? Not on cm e 12/09/2022 Are you concerned about learning? [...] file Insurance MEDICARE PART A & B [employer] MEDEX SUPPLEMENT MEDICARE PART A & B [employer] MEDEX SUPPLEMENT MEDICARE PART A & B [employer] MEDEX SUPPLEMENT MEDICARE PART A & B [employer] MEDEX SUPPLEMENT MEDICARE PART A & B [employer] MEDEX SUPPLEMENT MEDICARE PART A & B [employer] MEDEX SUPPLEMENT MEDICARE PART A & B MEDEX SUPPLEMENT MEDICARE PART A & B [place] [employer] MEDEX SUPPLEMENT MEDICARE PART A & B [employer] MEDEX SUPPLEMENT Care Teams Prosthetist Relationship Specialty Start Date End Date Yareli Lobato NP [address] [place] [address] PCP - General Nurse Practitioner 10/11/18 Additional Source Comments The information contained in this document represents components of the legal health record. It is not the complete legal health record.[facility]
== END 2025-06-18 13:01 | disposition home or self-care (01) ==
LOC: HO.HOSX 13:00
DX: S81.811A Laceration without foreign body, right lower leg, initial encounter (principal); S81.012A Laceration without foreign body, left knee, initial encounter; S51.812A Laceration without foreign body of left forearm, initial encounter; W19.XXXA Unspecified fall, initial encounter; Y92.090 Kitchen in other non-institutional residence as the place of occurrence of the external cause
CPT/HCPCS: 73110; 99212

== ENCOUNTER 2025-06-18 13:51 | Outpatient (AMB) | payer MEDICARE, SELFPAY ==
--- NOTE | 2025-06-18 14:10 | MHC.OFFVIS ---
Vital Signs 06/18/25 14:14 Height 5 ft 3 in Weight 170 lb BMI 30.1 Intake Visit Reasons: ED FU-Left distal ulnar fx 06/06/25 Intake Note: Lainey is a 85 year old female who presents today as a ED follow up for her Left distal ulnar fx 06/06/25. At today's visit she states that she fell in her kitchen at home and does not remember how she fell. Patient states that that her left wrist into her forearm has a dull pain. She noted that her left hand is still swollen and due to the swelling her fingers have sores/redness. Allergies gabapentin Allergy (Intermediate, Verified 06/18/25 14:17) Unknown tramadol Allergy (Intermediate, Verified 06/18/25 14:17) Nausea atorvastatin Adverse Reaction (Severe, Verified 06/05/25 14:53) muscle aches simvastatin Adverse Reaction (Severe, Verified 06/05/25 14:53) Muscles Aches HPI HPI ED FU-Left distal ulnar fx 06/06/25: Details: Lainey is a 85 year old female who presents today as a ED follow up for her Left distal ulnar fx 06/06/25. At today's visit she states that she fell in her kitchen at home and does not remember how she fell. Patient states that that her left wrist into her forearm has a dull pain. She noted that her left hand is still swollen and due to the swelling her fingers have sores/redness. Patient also reports that the skin tear on the L forearm has not been evaluated since hospital admission, and that she is getting wound care on the skin tears on bilateral knees. [facility] Medical History Rash Bronchiectasis Pseudomonal pneumonia Abnormal chest x-ray Statin intolerance Essential hypertension Atherosclerotic cardiovascular disease PAF (paroxysmal atrial fibrillation) Non-rheumatic aortic stenosis Murmur, heart GERD (gastroesophageal reflux disease) Cough Asthma-COPD overlap syndrome Bronchitis Surgical History History of left knee replacement History of carpal tunnel release Family History Mother Breast cancer Father Heart attack Other Allergies Social History Household Members: Spouse Housing: House Do you presently have visiting nurse or other home services: No Alcohol intake: former Comment: stiffness Patient Tobacco Use Status: Never used Tobacco service: No Review of Systems Const All systems reviewed & are unremarkable except as noted in HPI and below Physical Exam Vital Signs: BMI result Body Mass Index 30.1 Extrem Other: Patient's [R/L] [body part] normal to inspection No erythema, ecchymosis, edema noted No lacerations, abrasions, open areas No evidence of infection Patient reports no tenderness to palpation of the [] [Special Tests] Distal sensation intact Capillary refill brisk Office Procedures AMB Fracture Care Fracture Billing Code: Fracture Billing Code Assessment & Plan Assessment & Plan (1) Noninfected skin tear of right lower extremity: Code(s): S81.811A - Laceration without foreign body, right lower leg, initial encounter Category: Medical (2) Fracture of left ulna: Code(s): S52.202A - Unspecified fracture of shaft of left ulna, initial encounter for closed fracture Category: Medical (3) Fall: Code(s): W19.XXXA - Unspecified fall, initial encounter Category: Medical (4) Laceration of skin of left knee without complication: Code(s): S81.012A - Laceration without foreign body, left knee, initial encounter Category: Medical (5) Skin tear of forearm without complication: Code(s): S51.819A - Laceration without foreign body of unspecified forearm, initial encounter Category: Medical Plan 1. Left ulna fracture 2. Skin tear of the left forearm 3. Skin tears of bilateral knees Date of injury 06/06/2025 Patient is educated about this condition Patient is educated about the typical recovery course At this time, patient is placed in a thermal molded wrist splint to be worn like a cast except when receiving wound care on the left forearm Patient is also referred to wound care for treatment of the skin tears of her left forearm and bilateral knees, as these are quite significant Nonweightbearing in left upper extremity Follow-up in 1 week with repeat x-rays for skin check, sooner with any acute concerns Orders: Orders XR wrist LT min 3V 06/18/25 M25.532 - Pain in left wrist Referrals Wound Care Referral S51.819A - Laceration without foreign body of unspecified forearm, initial encounter, S81.012A - Laceration without foreign body, left knee, initial encounter, S81.811A - Laceration without foreign body, right lower leg, initial encounter, S81.812A - Laceration without foreign body, left lower leg, initial encounter Coding Level of Care Code Est Pt Level 3 (60665) Diagnoses Noninfected skin tear of right lower extremity S81.811A Fracture of left ulna S52.202A Fall W19.XXXA Laceration of skin of left knee without complication S81.012A Skin tear of forearm without complication S51.819A CPT Codes Fracture Care - Fracture Billing Code: Fracture Billing Code ([id number])
[2025-06-18 14:14] VITALS: BMI 30.1
== END 2025-06-18 15:29 | disposition home or self-care (01) ==
LOC: HO.HOS 13:51
PROVIDERS: PCP Nurse Practitioner Family
DX: S81.811A Laceration without foreign body, right lower leg, initial encounter (principal); S52.202A Unspecified fracture of shaft of left ulna, initial encounter for closed fracture; W19.XXXA Unspecified fall, initial encounter; S81.012A Laceration without foreign body, left knee, initial encounter; S51.819A Laceration without foreign body of unspecified forearm, initial encounter
CPT/HCPCS: 99213

== ENCOUNTER → 2025-06-18 13:53 | Outpatient (BNV) | payer MEDICARE, SELFPAY | PROVIDERS: Visit Provider Radiology Diagnostic Radiology | DX: S52.222D Displaced transverse fracture of shaft of left ulna, subsequent encounter for closed fracture with routine healing (principal); M19.032 Primary osteoarthritis, left wrist; M11.232 Other chondrocalcinosis, left wrist; M85.842 Other specified disorders of bone density and structure, left hand | CPT/HCPCS: 73110 ==

== ENCOUNTER 2025-06-25 13:25 | Outpatient (REF) | payer MEDICARE, SELFPAY ==
--- OUTSIDE RECORDS SUMMARY | 2021-02-04 10:39 | XMS_ITS | Encounter Summary ---
Author Organization [facility] Address [address] [place] [address] Phone Care Team Providers Care Heel Slugger Name Role Phone Yareli Lobato NETWORK PROGRAM MANAGER Primary Care Provider + Encounter Details Date Type Department Care Team (Late st Contact Info) Description 02/04/2021 11:39 AM EDT Hospital Encounter [facility] [address] [place] [address] Mia Danielle FNP [address] [place] [phone] [email or web address] Social History Tobacco Use [...] reportoriginally created by Onel Powers. Mia Danielle ELL TUTOR IMG XR UPPER EXTREMITY Ana l Result documented in this encounter Visit Diagnoses Not on filedocumented in this encounter Care Teams Heel Slugger Relationship Specialty Start Date End Date Yareli Lobato NP [address] [place] [phone] PCP - General Nurse Practitioner 10/11/18 documented as of this encounter Additional Source Comments The information contained in this document represents components of the legal health record. It is not the complete legal health record.[facility]
--- OUTSIDE RECORDS SUMMARY | 2021-02-04 10:39 | XMS_ITS | Encounter Summary ---
Author Organization [facility] Address [address] [place] [address] Phone Care Team Providers Care Lugger Name Role Phone Yareli Lobato CIGAR HEAD PUNCHER Primary Care Provider + Encounter Details Date Type Department Care Team (Late st Contact Info) Description 02/04/2021 11:39 AM EDT Hospital Encounter [facility] [address] [place] [address] Mia Danielle FNP [address] [place] [phone] JOANNE@[email or web address] Social History Tobacco Use Types Packs/Day [...] reportoriginally created by Onel Powers. Mia Danielle OIL MIXER IMG XR PELVIS Final Resul t documented in this encounter Visit Diagnoses Not on filedocumented in this encounter Care Teams Lugger Relationship Specialty Start Date End Date Yareli Lobato NP [address] [place] [phone] PCP - General Nurse Practitioner 10/11/18 documented as of this encounter Additional Source Comments The information contained in this document represents components of the legal health record. It is not the complete legal health record.[facility]
--- OUTSIDE RECORDS SUMMARY | 2024-05-02 09:30 | XMS_ITS ---
Author Organization [facility] Address [address] [place] [address] Care Team Providers Care Java Groovy Developer Name Role Phone Arielle Smith Primary Care Provider Unavailabl Lani Goody [phone] Encounters Encounter Location Date Provider Diagnosis [address] [address] 05/02/2024 Lani Ricketts Plan Of Treatment No Information Progress Notes * Lainey MORRELL RDOB:[birth year] (85 yo F)Acc No.[id number]:05/02/2024 Progress Note Patient: Lainey MCNAIR Provider: Chanda Ricketts DPM :1940 A ge:84 Y S ex:Female Date:05/02/2024 Address:[address] [place] [phone] Pcp:Arielle Smith Subjective: * Chief Complaints: * [...] 0 05/02/2024 Generated for Printi ng/Fanayg/eTransmitting on: 08/25/2024 04:17 PM EST
--- OUTSIDE RECORDS SUMMARY | 2025-06-09 10:00 | XMS_ITS ---
Author Organization [facility] Address [address] [place] [address] Care Team Providers Care Cma Or Lpn Name Role Phone Arielle Smith Primary Care Provider Unavailabl Lani Godoy [phone] Encounters Encounter Location Date Provider Diagnosis [address] [address] 06/09/2025 Lani Ricketts Plan Of Treatment No Information Progress Notes * Lainey MORRELL RDOB:[birth year] (85 yo F)Acc No.[id number]:06/09/2025 Progress Note Patient: Lainey MCNAIR Provider: Chanda Ricketts DPM :1940 A ge:85 Y S ex:Female Date:06/09/2025 Address:[address] [place] [id number] Pcp:Arielle Smith Subjective: * Chief Complaints: * [...] DPM Date: Generated for Printi ng/Fanayg/eTransmitting on: 08/25/2024 04:17 PM EST
--- NOTE | ~2025-06-25 | XR_ITS ---
EXAMINATION: XR FOREARM, LEFT CLINICAL INFORMATION: Follow-up distal left ulnar fracture COMPARISON: None available. TECHNIQUE: AP and lateral views of the left forearm were obtained. FINDINGS: Again seen is an oblique fracture involving the distal third diaphysis of the ulna. There is increasing periosteal new bone formation and minimal cancellous new bone. There appears to be increase step-off of the cortex in a radial direction distal to the fracture on one image, but this could be projectional. There is increasing disuse osteopenia. There is chondrocalcinosis in the triangular fibrocartilage and lunotriquetral ligament.. There is moderate degenerative change involving the STT joint and first CMC joint. XR/XR forearm LT 2V IMPRESSION: Healing distal ulnar fracture. Increased step-off on one view could be projectional in nature. Electronically signed by: Simon Cam MD 06/25/2025 02:48 PM EST
--- OUTSIDE RECORDS SUMMARY | 2025-06-25 16:18 | XMS_ITS | Encounter Summary ---
Author Organization [facility] Address [address] [place] [phone] Phone Care Team Providers Care Fireboat Operator Name Role Phone Yareli Lobato DYNAMITE PACKING MACHINE FEEDER Primary Care Provider + Reason for Referral * Physical Therapy (Routine) - Closed Specialty Diagnoses / Procedures Referred By Stu quijano Referred To Contact Physical Therapy Diagnoses Encounter for rehabilitation System, Provider Not In, [facility] [id number] [place] [phone] Phone: tel: Referral ID Status Reason Start Date Expiration Date Visits Re quested Visits Authorized [id number] Closed 10/30/2018 08/13/2019 99 99 Encounter Details Date Type Department Care Team (Latest Contact Info) Description 10/11/2018 Transcribe Orders [facility] [address] [place] [phone] Yareli Lobato, DYNAMITE PACKING MACHINE FEEDER [address] [place] [address] Encounter for rehabilitation (Primary Dx) Social History [...] Diagnoses Orde r Schedule Ambulatory referral to [facility] Physical Therapy Outpatient Referral Routine Encounter for rehabilitation Ordered: 10/11/2018 documented as of this encounter Visit Diagnoses Diagnosis Encounter for rehabilitation- Primary documented in this encounter Care Teams Fireboat Operator Relationship Specialty Start Date End Date Yareli Lobato NP [address] [place] [phone] PCP - General Nurse Practitioner 10/11/18 documented as of this encounter Additional Source Comments The information contained in this document represents components of the legal health record. It is not the complete legal health record.[facility]
--- OUTSIDE RECORDS SUMMARY | 2025-06-25 16:18 | XMS_ITS | Encounter Summary ---
Author Organization [facility] Address [address] [place] [address] Care Team Providers Care Assault Amphibious Vehicle Crewman Name Role Phone Lalito Sanchez MD Primary Care Provider +1- [phone] Encounter Details Date Type Department Care Team (Late st Contact Info) Description 06/13/2025 Lab Requisition [facility] - Main Lab [address] [facility] [place] [address] Lalito Sanchez MD [address] [place] [address] Unspecified atrial fibrillation (CMS/HCC V24, CMS/HCC V28); [...] mmol/L LAB CHEMISTRY METHOD 06/16/2025 2:06 PM [facility] Potassium 4.3 3.5 - 5.5 mmol/L LAB CHEMISTRY METHOD 06/16/2025 2:06 PM [facility] Chloride 98 96 - 110 mmol/L LAB CHEMISTRY METHOD 06/16/2025 2:06 PM [facility] CO2 27 21 - 32 mmol/L LAB CHEMISTRY METHOD 06/16/2025 2:06 PM [facility] Anion Gap 8 3 - 11 LAB CHEMISTRY METHOD 06/16/2025 2:06 PM [facility] Glucose 82 70 - 100 mg/dL LAB CHEMISTRY METHOD 06/16/2025 2:06 PM [facility] BUN 15 5 - 25 mg/dL LAB CHEMISTRY METHOD 06/16/2025 2:06 PM [facility] Creatinine 0.50 0.50 - 1.10 mg/dL LAB CHEMISTRY METHOD 06/16/2025 2:06 PM [facility] eGFR 93 >=60 mL/min/1. 73m2 LAB CHEMISTRY METHOD 06/16/2025 2:06 PM [facility] Comment:Calculation based on the Chronic Kidney Disease Epidemiology Collaboration (CKD-EPI) equation refit without adjustment for race. BUN/Creatinine Ratio 30.0 LAB CHEMISTRY METHOD 06/16/2025 2:06 PM [facility] Calcium 9.0 8.5 - 10.5 mg/dL LAB CHEMISTRY METHOD 06/16/2025 2:06 PM [facility] Blood Venous blood specimen / Unknown Venipuncture / Unknown 06/16/2025 8:29 AM EST 06/16/2025 11:17 AM EST us Lalito Sanchez MD LAB BLOOD ORDERABLES Final Result [facility] [address] [place] [address], * (ABNORMAL) Complete blood count (06/16/2025 8:29 AM EST) [facility] WBC 9.3 4.8 - 10.8 K/mcL LAB HEMETOLOGY METHOD 06/16/2025 1:55 PM EST [facility] RBC 3.80 3.80 - 4.80 M/mcL LAB HEMETOLOGY METHOD 06/16/2025 1:55 PM EST [facility] Hemoglobin 11.0(L) 11.5 - 16.0 g/dL LAB HEMETOLOGY METHOD 06/16/2025 1:55 PM EST [facility] Hematocrit 35.3 35.0 - 47.0 % LAB HEMETOLOGY METHOD 06/16/2025 1:55 PM EST [facility] MCV 92.4 79.0 - 98.0 FL LAB HEMETOLOGY METHOD 06/16/2025 1:55 PM EST [facility] MCH 28.8 27.0 - 32.0 pcg LAB HEMETOLOGY METHOD 06/16/2025 1:55 PM EST [facility] MCHC 31.2(L) 32.0 - 37.0 g/dL LAB HEMETOLOGY METHOD 06/16/2025 1:55 PM EST [facility] RDW 15.2(H) 11.0 - 15.0 % LAB HEMETOLOGY METHOD 06/16/2025 1:55 PM EST [facility] Platelets 544(H) 130 - 400 K/mcL LAB HEMETOLOGY METHOD 06/16/2025 1:55 PM [facility] MPV 8.2 7.0 - 11.0 FL LAB HEMETOLOGY METHOD 06/16/2025 1:55 PM EST [facility] NRBC 0.0 <1.0 % LAB HEMETOLOGY METHOD 06/16/2025 1:55 PM EST [facility] NRBC Absolute 0.00 <0.10 K/mcL LAB HEMETOLOGY METHOD 06/16/2025 1:55 PM EST [facility] Blood Venous blood specimen / Unknown Venipuncture / Unknown 06/16/2025 8:29 AM EST 06/16/2025 11:17 AM EST us Lalito Sanchez MD LAB BLOOD ORDERABLES Final Result [facility] [address] [place] [address], documented in this encounter Visit Diagnoses Diagnosis Unspecified atrial fibrillation (CMS/HCC V24, CMS/HCC V28) Gastro-esophageal reflux disease without esophagitis Unspecified asthma, uncomplicated Essential (primary) hypertension Unspecified essential hypertension documented in this encounter Care Teams Assault Amphibious Vehicle Crewman Relationship Specialty Start Date End Date Lalito Sanchez MD [address] [place] [address] PCP - General Internal Medicine 06/12/25 documented as of this encounter
--- OUTSIDE RECORDS SUMMARY | 2025-06-25 16:18 | XMS_ITS | Clinical Summary ---
Author Organization [facility] Address [address] [facility] [address] [place] [address] Phone Care Team Providers Care Medical Office Receptionist Name Role Phone Yareli Lobato NP Primary [...] Department Care Team Description 04/15/2025 Transcribe Orders [facility] [address] [place] [address] [place] [address] Jennifer Kuhn Encounter for rehabilitation (Primary Dx) [...] patient's age to complete this topic IPV VACCINES Aged Out No longer eligi ble based on patient's age to complete this topic MENINGOCOCCAL VACCINES (ACWY) Aged Out No longer eligible based on patient's age to complete this topic MENINGOCOCCAL VACCINES (B) Aged Out N o longer eligible based on patient's age to complete this topic Medical Devices Not on file Insurance MEDICARE PART A & B [employer] MEDEX SUPPLEMENT MEDICARE PART A & B [employer] MEDEX SUPPLEMENT MEDICARE PART A & B [employer] MED[employer] SUPPLEMENT MEDICARE PART A & B [employer] MED[employer] SUPPLEMENT MEDICARE PART A & B [employer] MED[employer] SUPPLEMENT MEDICARE PART A & B [employer] MEDEX SUPPLEMENT MEDICARE PART A & B [facility] MEDEX SUPPLEMENT MEDICARE PART A & B [employer] MEDEX SUPPLEMENT MEDICARE PART A & B [employer] SUPPLEMENT Care Teams Medical Office Receptionist Relationship Specialty Start Date End Date Yareli Lobato NP [address] [place] [address] PCP - General Nurse Practitioner 10/11/18 Additional Source Comments The information contained in this document represents components of the legal health record. It is not the complete legal health record.[facility]
--- OUTSIDE RECORDS SUMMARY | 2025-06-25 16:18 | XMS_ITS | Patient Health Record ---
Author Organization [facility] Address [address] [place] [address] Care Team Providers Care Cement Gun Operator Name Role Phone Sarah Arielle Primary Care Provider Unavailabl e Black, Lani Unavailable [phone] Allergies No Known Allergies Reason For Referral [...] Ordered Date Performed Result Body Sit e 44356-TAIGAZW NAIL, 6 OR MORE 08/26/2024 N/A 39614-Xatjgucb Plate 08/26/2024 N/A 73983-YXLLKNE NAIL, 6 OR MORE 11/25/2024 N/A 75463,Z1458-KAF TENDON SHEATH/LIGAMENT 11/25/2024 N/A 20361-XRKOLIQ NAIL, 6 OR MORE 03/03/2025 N/A Encounters Encounter Location Date Provider Diagnosis [facility] [address] [address] 08/26/2024 Lani Black Tinea unguium B35.1 ; Pressure injury of right heel, unstageable L89.610 ; Pain in right toe(s) M79.674 ; Pain in left toe(s) M79.675 and Ingrown nail L60.0 [facility] [address] [address] 11/25/2024 Lani Black Tinea unguium B35.1 ; Bursitis of right foot M77.51 ; Pain in right toe(s) M79.674 ; Pain in left toe(s) M79.675 ; Pain in right foot M79.671 ; Plantar fasciitis of right foot M72.2 and 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 [facility] [address] [place] [address] 03/03/2025 Lani Black Tinea unguium B35.1 ; Bursitis of right foot M77.51 ; Pain in right toe(s) M79.674 ; Pain in left toe(s) M79.675 ; Pain in right foot M79.671 ; Plantar fasciitis of right foot M72.2 and 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 [facility] [address] [address] 06/06/2025 Lani Ricketts Assessments Encounter Date Diagnosis [...] X ray : Foot, right 3V 06/25/2013 14181-MXQZUIU NAIL, 6 OR MORE 06/21/2021 86101-CKWYIFO NAIL, 6 OR MORE 10/11/2021 08005-OCCMVWR NAIL, 6 OR MORE 01/20/2022 91239-ONPCXBO NAIL, 6 OR MORE 04/28/2022 69590-OUFZSRI NAIL, 6 OR MORE 06/01/2020 21538-PZSOCPJ NAIL, 6 OR MORE 11/23/2020 25661-JRUZAVF NAIL, 6 OR MORE 03/01/2021 04810-RQRKPNQ NAIL, 6 OR MORE 05/06/2024 30042-PXWGTON NAIL, 6 OR MORE 08/26/2024 89922-GHAYGCH NAIL, 6 OR MORE 11/25/2024 74898-JHRSYQZ NAIL, 6 OR MORE 03/03/2025 07197-DGRRHAM NAIL, 6 OR MORE 08/25/2022 89905-HHFMADG NAIL, 6 OR MORE 12/01/2022 74287-LMTMFRT NAIL, 6 OR MORE 03/13/2023 91181-HOTQPDQ NAIL, 6 OR MORE 06/26/2023 59992-UPLXPWN NAIL, 6 OR MORE 10/05/2023 17498-EEYFDIZ NAIL, 6 OR MORE 01/11/2024 89352-HDEXFFL NAIL, 6 OR MORE 05/12/2014 42716-WWNYWDB NAIL, 6 OR MORE 08/18/2014 88799-KKSWOAT NAIL, 6 OR MORE 12/02/2014 74397-XUHBYUN NAIL, 6 OR MORE 05/06/2015 83240-XWLSKAN NAIL, 6 OR MORE 09/07/2015 36736-SEKJXJX NAIL, 6 OR MORE 02/08/2016 55553-FZSSYDO NAIL, 6 OR MORE 06/09/2016 72705-HHVAFOB NAIL, 6 OR MORE 11/02/2016 89522-HUUQGSC NAIL, 6 OR MORE 03/07/2017 50983-KAZQCUZ NAIL, 6 OR MORE 05/15/2017 75919-KEBXBRG NAIL, 6 OR MORE 08/21/2017 76564-MBLVIIH NAIL, 6 OR MORE 11/23/2017 73961-VEAEYAZ NAIL, 6 OR MORE 02/05/2018 89865-UAJZKZT NAIL, 6 OR MORE 05/07/2018 01523-SXBOGBP NAIL, 6 OR MORE 08/20/2018 46524-POTUECR NAIL, 6 OR MORE 06/08/2011 90501-ILPRYPB NAIL, 6 OR MORE 09/07/2011 91163-PDCEZTD NAIL, 6 OR MORE 11/16/2011 91451-RCSDCDN NAIL, 6 OR MORE 02/01/2012 00895-JPHWTOA NAIL, 6 OR MORE 04/11/2012 87048-TKGQVUT NAIL, 6 OR MORE 05/07/2012 58448-IIHOASR NAIL, 6 OR MORE 07/11/2012 10960-ZRBPKBZ NAIL, 6 OR MORE 10/10/2012 81832-LELYBVE NAIL, 6 OR MORE 12/17/2012 80388-JMLIMSH NAIL, 6 OR MORE 04/08/2013 97564-GHANBCI NAIL, 6 OR MORE 06/25/2013 87897-WXNUOIQ NAIL, 6 OR MORE 07/29/2013 50649-ITZDPBR NAIL, 6 OR MORE 09/24/2013 16657-GFYRLOX NAIL, 6 OR MORE 12/09/2013 66686-IDOGUTH NAIL, 6 OR MORE 02/24/2014 70038-DGZBERJ NAIL, 6 OR MORE 11/19/2018 88371-QKIQJNN NAIL, 6 OR MORE 02/25/2019 10867-BPWMIEI NAIL, 6 OR MORE 06/03/2019 18053-BSMEAMV NAIL, 6 OR MORE 08/26/2019 64721-HKXZUVO NAIL, 6 OR MORE 03/04/2020 78839-Ejmzrksn Plate 08/20/2018 09574-Nasetdnz Plate 08/26/2024 72402-Gjbgjyku Plate 03/01/2021 19600-Bretgpwj Plate 06/21/2021 41024- Debride <25 sq cm 08/19/2021 09032- Debride <25 sq cm 10/11/2021 46557- Debride <25 sq cm 08/25/2022 97776- Debride <25 sq cm 06/21/2021 45115- Debride <25 sq cm 05/30/2024 35801- Debride <25 sq cm 12/14/2023 78658- Debride <25 sq cm 06/26/2023 94566- Debride <25 sq cm 03/04/2020 27619- Debride <25 sq cm 06/01/2020 89827 I&D ABSCESS- SIMPLE,SINGLE 024 59495, E3858-QINHT/INJECT, JOINT/BURSA 1 08/25/[id number],B7909-JNW TENDON SHEATH/LIGAMENT 0 11/25/2024 Insurance Providers Payer Name Payer Address Payer Phone Subscriber Number Group Number Insured Name Patient Relationship to Insured Coverage Start Date Coverage End Date Medicare National [employer] [address] [place] [address] [id number] Lainey Floyd Self - patient is the insured 7 [employer] [address] [place] [address] [id number] Lainey Floyd Self - patient is the insured Medical (General) History Medical History History ICD Code chicken pox asthma Surgical History Surgery Date(Month/Year) appendectomy 1957 carpal tunnel release 04/10/2017 Left Knee replacement 02/02 carpal tunnel surgery 01/04 Hospitalization History Reason Date(Month/Year)
--- OUTSIDE RECORDS SUMMARY | 2025-06-25 16:18 | XMS_ITS | Encounter Summary ---
Author Organization [facility] Address [address] [place] [address] Care Team Providers Care Slasher Tender Name Role Phone Lalito Sanchez MD Primary Care Provider +1- [phone] Encounter Details Date Type Department Care Team (Late st Contact Info) Description 06/12/2025 Lab Requisition [facility] - Main Lab [address] [facility] [place] [address] Lalito Sanchez MD [address] [place] [address] Unspecified atrial fibrillation (CMS/HCC V24, CMS/HCC V28); [...] mmol/L LAB CHEMISTRY METHOD 06/12/2025 10:38 AM [facility] Potassium 4.3 3.5 - 5.5 mmol/L LAB CHEMISTRY METHOD 06/12/2025 10:38 AM [facility] Chloride 100 96 - 110 mmol/L LAB CHEMISTRY METHOD 06/12/2025 10:38 AM [facility] CO2 25 21 - 32 mmol/L LAB CHEMISTRY METHOD 06/12/2025 10:38 AM [facility] Anion Gap 8 3 - 11 LAB CHEMISTRY METHOD 06/12/2025 10:38 AM [facility] Glucose 86 70 - 100 mg/dL LAB CHEMISTRY METHOD 06/12/2025 10:38 AM [facility] BUN 17 5 - 25 mg/dL LAB CHEMISTRY METHOD 06/12/2025 10:38 AM [facility] Creatinine 0.53 0.50 - 1.10 mg/dL LAB CHEMISTRY METHOD 06/12/2025 10:38 AM [facility] eGFR 92 >=60 mL/min/1. 73m2 LAB CHEMISTRY METHOD 06/12/2025 10:38 AM [facility] Comment:Calculation based on the Chronic Kidney Disease Epidemiology Collaboration (CKD-EPI) equation refit without adjustment for race. BUN/Creatinine Ratio 32.1 LAB CHEMISTRY METHOD 06/12/2025 10:38 AM [facility] Calcium 8.2(L) 8.5 - 10.5 mg/dL LAB CHEMISTRY METHOD 06/12/2025 10:38 AM [facility] AST (SGOT) 70(H) 10 - 42 unit/L LAB CHEMISTRY METHOD 06/12/2025 10:38 AM [facility] ALT (SGPT) 48 10 - 60 [...] mg/dL LAB CHEMISTRY METHOD 06/12/2025 10:38 AM [facility] Blood Venous blood specimen / Unknown Venipuncture / Unknown 06/12/2025 4:41 AM EDT 06/12/2025 9:23 AM EDT Lalito Sanchez MD LAB BLOOD ORDERABLES Final Result [facility] [address] [place] [address], * (ABNORMAL) Complete blood count (06/12/2025 4:41 AM EDT) WBC 7.1 4.8 - 10.8 K/mcL LAB HEMETOLOGY METHOD 06/12/2025 9:46 AM EDT [facility] RBC 3.20(L) 3.80 - 4.80 M/[facility] LAB HEMETOLOGY METHOD 06/12/2025 9:46 AM EDT [...] K/mcL LAB HEMETOLOGY METHOD 06/12/2025 9:46 AM [facility] Blood Venous blood specimen / Unknown Venipuncture / Unknown 06/12/2025 4:41 AM EDT 06/12/2025 9:23 AM EDT us Lalito Sanchez MD LAB BLOOD ORDERABLES Final Result [facility] [address] [place] [address], documented in this encounter Visit Diagnoses Diagnosis Unspecified atrial fibrillation (CMS/HCC V24, CMS/HCC V28) Essential (primary) hypertension Unspecified essential hypertension Gastro-esophageal reflux disease without esophagitis Other asthma Repeated falls documented in this encounter Care Teams Slasher Tender Relationship Specialty Start Date End Date Lalito Sanchez MD [address] [place] [address] PCP - General Internal Medicine 06/12/25 documented as of this encounter
--- OUTSIDE RECORDS SUMMARY | 2025-06-25 16:18 | XMS_ITS | Clinical Summary ---
Author Organization [address] [facility] Address [address] [place] [address] Phone Care Team Providers Care Boss Dyer Name Role Phone Lalito Sanchez MD Primary Care Provider +1- [phone] Encounters Date Type Department Care Team Description 06/21/[address] [facility] [address] [place] [phone] Lalito Sanchez MD Unspecified atrial fibrillation ([facility] V24, CMS/[facility]ER[facility] V28); Gastro-esophageal reflux disease without esophagitis; Unspecified asthma, uncomplicated; Essential (primary) hypertension 06/13/[address] [facility] [address] [place] [phone] Lalito Sanchez MD Unspecified atrial fibrillation (CMS/HCC V24, CMS/HCC V28); Gastro-esophageal reflux disease without esophagitis; Unspecified asthma, uncomplicated; Essential (primary) hypertension 06/12/[address] [facility] [address] [place] [phone] Lalito Sanchez MD Unspecified atrial fibrillation ([facility]/HCC V24, CMS/HCC V28); Essential (primary) hypertension; Gastro-esophageal [...] Screening 09/13/2023 Depression Screening 08/14/2024 COVID-19 Vaccine (1 - 2024-2 6 season) 2025 Influenza Vaccine (#1) 2025 Hypertension/CHF/CAD Annual BMP Blood Test 06/23/2026 06/23/2025, 06/16/2025, 06/12/2025 HIB Vaccines Aged Out No [...] Associated Diagnosis Comments BASIC METABOLIC PANEL Routine 06/23/2025 6:47 AM EST Unspecified atrial fibrillation (CMS/HCC V24, CMS/HCC V28) Gastro-esophageal reflux disease without esophagitis Unspecified asthma, uncomplicated Essential (primary) hypertension COMPLETE BLOOD COUNT Routine 06/23/2025 6:47 AM EST Unspecified atrial fibrillation (CMS/HCC V24, [...] Months Results * (ABNORMAL) Complete blood count (06/23/2025 6:47 AM EST) Only the most recent of3 resultswithin the time period is included. WBC 8.2 4.8 - 10.8 K/mcL LAB HEMETOLOGY METHOD 06/23/2025 10:33 AM [facility] RBC 3.50(L) 3.80 - 4.80 M/mcL LAB HEMETOLOGY METHOD 06/23/2025 10:33 AM [facility] Hemoglobin 10.3(L) 11.5 - 16.0 g/dL LAB HEMETOLOGY METHOD 06/23/2025 10:33 AM [facility] Hematocrit 32.3(L) 35.0 - 47.0 % LAB HEMETOLOGY METHOD 06/23/2025 10:33 AM [facility] MCV 93.4 79.0 - 98.0 FL LAB HEMETOLOGY METHOD 06/23/2025 10:33 AM EST [facility] MCH 29.8 27.0 - 32.0 pcg LAB HEMETOLOGY METHOD 06/23/2025 10:33 AM [facility] MCHC 31.9(L) 32.0 - 37.0 g/dL LAB HEMETOLOGY METHOD 06/23/2025 10:33 AM EST [facility] RDW 15.2(H) 11.0 - 15.0 % LAB HEMETOLOGY METHOD 06/23/2025 10:33 AM [facility] Platelets 490(H) 130 - 400 K/mcL LAB HEMETOLOGY METHOD 06/23/2025 10:33 AM EST [facility] MPV 8.4 7.0 - 11.0 FL LAB HEMETOLOGY METHOD 06/23/2025 10:33 AM EST [facility] NRBC 0.0 <1.0 % LAB HEMETOLOGY METHOD 06/23/2025 10:33 AM [facility] NRBC Absolute 0.00 <0.10 K/mcL LAB HEMETOLOGY METHOD 06/23/2025 10:33 AM [facility] Blood Venous blood specimen / Unknown Venipuncture / Unknown 06/23/2025 6:47 AM EST 06/23/2025 10:12 AM EST us Lalito Sanchez MD LAB BLOOD ORDERABLES Final Result [facility] [address] [place] [address], * Basic metabolic panel (06/23/2025 6:47 AM EST) Only the most recent of2 resultswithin the time period is included. [facility] Sodium 135 133 - 145 mmol/L LAB CHEMISTRY METHOD 06/23/2025 10:54 AM [facility] Potassium 4.4 3.5 - 5.5 mmol/L LAB CHEMISTRY METHOD 06/23/2025 10:54 AM [facility] Chloride 100 96 - 110 mmol/L LAB CHEMISTRY METHOD 06/23/2025 10:54 AM [facility] CO2 28 21 - 32 mmol/L LAB CHEMISTRY METHOD 06/23/2025 10:54 AM [facility] Anion Gap 7 3 - 11 LAB CHEMISTRY METHOD 06/23/2025 10:54 AM [facility] Glucose 82 70 - 100 mg/dL LAB CHEMISTRY METHOD 06/23/2025 10:54 AM [facility] BUN 16 5 - 25 mg/dL LAB CHEMISTRY METHOD 06/23/2025 10:54 AM [facility] Creatinine 0.57 0.50 - 1.10 mg/dL LAB CHEMISTRY METHOD 06/23/2025 10:54 AM [facility] eGFR 90 >=60 mL/min/1. 73m2 LAB CHEMISTRY METHOD 06/23/2025 10:54 AM [facility] Comment:Calculation based on the Chronic Kidney Disease Epidemiology Collaboration (CKD-EPI) equation refit without adjustment for race. BUN/Creatinine Ratio 28.1 LAB CHEMISTRY METHOD 06/23/2025 10:54 AM [facility] Calcium 8.8 8.5 - 10.5 mg/dL LAB CHEMISTRY METHOD 06/23/2025 10:54 AM [facility] Blood Venous blood specimen / Unknown Venipuncture / Unknown 06/23/2025 6:47 AM EST 06/23/2025 10:12 AM EST us Lalito Sanchez MD LAB BLOOD ORDERABLES Final Result [facility] [address] [place] [address], [place] [phone] * (ABNORMAL) Comprehensive metabolic panel (06/12/2025 4:41 AM EDT) Sodium 133 133 - 145 mmol/L LAB CHEMISTRY METHOD 06/12/2025 10:38 AM [facility] Potassium 4.3 3.5 - 5.5 mmol/L LAB CHEMISTRY METHOD 06/12/2025 10:38 AM [facility] Chloride 100 96 - 110 [...] LAB CHEMISTRY METHOD 06/12/2025 10:38 AM EDT [facility] ALT (SGPT) 48 10 - 60 unit/L LAB CHEMISTRY METHOD 06/12/2025 10:38 AM EDT [facility] Alkaline Phosphatase 104 42 - 121 unit/L LAB CHEMISTRY METHOD 06/12/2025 10:38 AM EDT [facility] Total Protein 4.9(L) 6.0 - 8.0 g/dL LAB CHEMISTRY METHOD 06/12/2025 10:38 AM EDT [facility] Albumin 2.0(L) 3.2 - 5.0 g/dL LAB CHEMISTRY METHOD 06/12/2025 10:38 AM T [facility] Total Bilirubin 0.4 0.0 - 1.4 mg/dL LAB CHEMISTRY METHOD 06/12/2025 10:38 AM EDT [facility] Blood Venous blood specimen / Unknown Venipuncture / Unknown 06/12/2025 4:41 AM EDT 06/12/2025 9:23 AM EDT Lalito Sanchez MD LAB BLOOD ORDERABLES Final Result [facility] [address] [place] [address], [place] [phone] from Last 3 Months Insurance MEDICARE [facility] Care Teams Boss Dyer Relationship Specialty Start Date End Date Lalito Sanchez MD [address] [place] [id number] PCP - General Internal Medicine 06/12/25
--- OUTSIDE RECORDS SUMMARY | 2025-06-25 16:18 | XMS_ITS | Encounter Summary ---
Author Organization [facility] Address [address] [place] [address] Care Team Providers Care Stator Winder Name Role Phone Lalito Sanchez MD Primary Care Provider +1- [phone] Encounter Details Date Type Department Care Team (Late st Contact Info) Description 06/21/2025 Lab Requisition [facility] [address] [facility] [place] [address] Lalito Sanchez MD [address] [place] [address] Unspecified atrial fibrillation (CMS/HCC V24, CMS/HCC V28); [...] Associated Diagnosis Comments COMPLETE BLOOD COUNT Routine 06/23/2025 6:47 AM EST Unspecified atrial fibrillation (CMS/HCC V24, CMS/HCC V28) Gastro-esophageal reflux disease without esophagitis Unspecified asthma, uncomplicated Essential (primary) hypertension BASIC METABOLIC PANEL Routine 06/23/2025 6:47 AM EST Unspecified atrial fibrillation (CMS/HCC V24, CMS/HCC V28) Gastro-esophageal reflux disease without esophagitis Unspecified asthma, uncomplicated Essential (primary) hypertension documented in this encounter Results * Basic metabolic panel (06/23/2025 6:47 AM EST) Sodium 135 133 - 145 mmol/L LAB CHEMISTRY METHOD 06/23/2025 10:54 AM [facility] Potassium 4.4 3.5 - 5.5 mmol/L LAB CHEMISTRY METHOD 06/23/2025 10:54 AM [facility] Chloride 100 96 - 110 mmol/L LAB CHEMISTRY METHOD 06/23/2025 10:54 AM [facility] CO2 28 21 - 32 mmol/L LAB CHEMISTRY METHOD 06/23/2025 10:54 AM [facility] Anion Gap 7 3 - 11 LAB CHEMISTRY METHOD 06/23/2025 10:54 AM [facility] Glucose 82 70 - 100 mg/dL LAB CHEMISTRY METHOD 06/23/2025 10:54 AM [facility] BUN 16 5 - 25 mg/dL LAB CHEMISTRY METHOD 06/23/2025 10:54 AM [facility] Creatinine 0.57 0.50 - 1.10 mg/dL LAB CHEMISTRY METHOD 06/23/2025 10:54 AM [facility] eGFR 90 >=60 mL/min/1. 73m2 LAB CHEMISTRY METHOD 06/23/2025 10:54 AM [facility] Comment:Calculation based on the Chronic Kidney Disease Epidemiology Collaboration (CKD-EPI) equation refit without adjustment for race. BUN/Creatinine Ratio 28.1 LAB CHEMISTRY METHOD 06/23/2025 10:54 AM [facility] Calcium 8.8 8.5 - 10.5 mg/dL LAB CHEMISTRY METHOD 06/23/2025 10:54 AM [facility] Blood Venous blood specimen / Unknown Venipuncture / Unknown 06/23/2025 6:47 AM EST 06/23/2025 10:12 AM EST us Lalito Sanchez MD LAB BLOOD ORDERABLES Final Result [facility] [address] [place] [address], * (ABNORMAL) Complete blood count (06/23/2025 6:47 AM EST) [facility] WBC 8.2 4.8 - 10.8 K/mcL LAB HEMETOLOGY METHOD 06/23/2025 10:33 AM EST [facility] RBC 3.50(L) 3.80 - 4.80 M/mcL LAB HEMETOLOGY METHOD 06/23/2025 10:33 AM [facility] Hemoglobin 10.3(L) 11.5 - 16.0 g/dL LAB HEMETOLOGY METHOD 06/23/2025 10:33 AM [facility] Hematocrit 32.3(L) 35.0 - 47.0 % LAB HEMETOLOGY METHOD 06/23/2025 10:33 AM [facility] MCV 93.4 79.0 - 98.0 FL LAB HEMETOLOGY METHOD 06/23/2025 10:33 AM [facility] MCH 29.8 27.0 - 32.0 pcg LAB HEMETOLOGY METHOD 06/23/2025 10:33 AM [facility] MCHC 31.9(L) 32.0 - 37.0 g/dL LAB HEMETOLOGY METHOD 06/23/2025 10:33 AM [facility] RDW 15.2(H) 11.0 - 15.0 % LAB HEMETOLOGY METHOD 06/23/2025 10:33 AM [facility] Platelets 490(H) 130 - 400 K/mcL LAB HEMETOLOGY METHOD 06/23/2025 10:33 AM [facility] MPV 8.4 7.0 - 11.0 FL LAB HEMETOLOGY METHOD 06/23/2025 10:33 AM [facility] NRBC 0.0 <1.0 % LAB HEMETOLOGY METHOD 06/23/2025 10:33 AM EST [facility] NRBC Absolute 0.00 <0.10 K/mcL LAB HEMETOLOGY METHOD 06/23/2025 10:33 AM EST [facility] Blood Venous blood specimen / Unknown Venipuncture / Unknown 06/23/2025 6:47 AM EST 06/23/2025 10:12 AM EST us Lalito Sanchez MD LAB BLOOD ORDERABLES Final Result [facility] [address] [place] [address], documented in this encounter Visit Diagnoses Diagnosis Unspecified atrial fibrillation (CMS/HCC V24, CMS/HCC V28) Gastro-esophageal reflux disease without esophagitis Unspecified asthma, uncomplicated Essential (primary) hypertension Unspecified essential hypertension documented in this encounter Care Teams Stator Winder Relationship Specialty Start Date End Date Lalito Sanchez MD [address] [place] [id number] PCP - General Internal Medicine 06/12/25 documented as of this encounter
== END 2025-06-25 13:26 | disposition home or self-care (01) ==
LOC: HO.HOSX 13:25
DX: S81.811D Laceration without foreign body, right lower leg, subsequent encounter (principal); S52.602D Unspecified fracture of lower end of left ulna, subsequent encounter for closed fracture with routine healing; S81.012D Laceration without foreign body, left knee, subsequent encounter; S81.011D Laceration without foreign body, right knee, subsequent encounter; W19.XXXD Unspecified fall, subsequent encounter
CPT/HCPCS: 73090; 99212

== ENCOUNTER 2025-06-25 14:00 | Outpatient (AMB) | payer MEDICARE, SELFPAY ==
[2025-06-25 14:10] VITALS: BMI 30.1
--- NOTE | 2025-06-25 14:10 | A.OFFVIS_ITS ---
Vital Signs 06/25/25 14:10 Height 5 ft 3 in Weight 170 lb BMI 30.1 Intake Visit Reasons: OV-Left distal ulnar fx 06/06/25-w/xrays Intake Note: Lainey is an 85 year old - hand dominant female who presents today for a Skin Check status post Left Ulnar Fracture & Skin Tear of the Left Forearm, DOI: 06/06/2025. At her last visit, she was placed in a thermal molded wrist splint to be worn like a cast except when receiving wound care on the left forearm. A referral to Wound Care was placed. Patient is expected to be non-weight bearing in her left upper extremity. Patient reports today she continues using her thermal molded splint and receiving wound care at the Rehab ever 2 days. Allergies gabapentin Allergy (Intermediate, Verified 06/25/25 14:26) Unknown tramadol Allergy (Intermediate, Verified 06/25/25 14:26) Nausea atorvastatin Adverse Reaction (Severe, Verified 06/25/25 14:26) muscle aches simvastatin Adverse Reaction (Severe, Verified 06/25/25 14:26) Muscles Aches HPI HPI OV-Left distal ulnar fx 06/06/25-w/xrays: Details: Lainey is an 85 year old - hand dominant female who presents today for a Skin Check status post Left Ulnar Fracture & Skin Tear of the Left Forearm, DOI: 06/06/2025. At her last visit, she was placed in a thermal molded wrist splint to be worn like a cast except when receiving wound care on the left forearm. A referral to Wound Care was placed. Patient is expected to be non-weight bearing in her left upper extremity. Patient reports today she continues using her thermal molded splint and receiving wound care at the Rehab ever 2 days. [facility] Medical History Rash Bronchiectasis Pseudomonal pneumonia Abnormal chest x-ray Statin intolerance Essential hypertension Atherosclerotic cardiovascular disease PAF (paroxysmal atrial fibrillation) Non-rheumatic aortic stenosis Murmur, heart GERD (gastroesophageal reflux disease) Cough Asthma-COPD overlap syndrome Bronchitis Surgical History History of left knee replacement History of carpal tunnel release Family History Mother Breast cancer Father Heart attack Other Allergies Social History Household Members: Spouse Housing: House Do you presently have visiting nurse or other home services: No Alcohol intake: former Comment: stiffness Patient Tobacco Use Status: Never used Tobacco service: No Review of Systems Const All systems reviewed & are unremarkable except as noted in HPI and below Physical Exam Vital Signs: BMI result Body Mass Index 30.1 Extrem Other: Patient is alert, oriented, and in no acute distress. Neuro: Normal sensation of the tips of all digits of the left hand at this time Vascular: Cap refill brisk Pain: Minimal tenderness to palpation about the skin tear at the level of the fracture of the left ulna ROM: Patient is able to make a closed fist and extend all digits of the left hand fully Skin: Significant skin tear noted of the left forearm with significant healing that has taken place since previous evaluation and only small area of granulation tissue still noted, with good skin coverage elsewhere General: No ecchymosis, erythema, or evidence of infection. Psych: Appears grossly normal Affect normal Attitude cooperative Assessment & Plan Assessment & Plan (1) Noninfected skin tear of right lower extremity: Code(s): S81.811A - Laceration without foreign body, right lower leg, initial encounter Category: Medical (2) Fracture of left ulna: Code(s): S52.A - Unspecified fracture of shaft of left ulna, initial encounter for closed fracture Category: Medical (3) Fall: Code(s): W19.XXXA - Unspecified fall, initial encounter Category: Medical (4) Laceration of skin of left knee without complication: Code(s): S81.012A - Laceration without foreign body, left knee, initial encounter Category: Medical (5) Skin tear of forearm without complication: Code(s): S51.819A - Laceration without foreign body of unspecified forearm, initial encounter Category: Medical Plan 1. Left ulna fracture 2. Skin tear of the left forearm 3. Skin tears of bilateral knees Date of injury 06/06/2025 Patient is educated about this condition Patient is educated about the typical recovery course Continue to wear thermal molded splint like a cast only removing for bathing and wound care for a further 2 weeks Continue following up with wound care as needed 2 lb weight limit in left upper extremity Follow-up in 2 week with repeat x-rays for skin check, sooner with any acute concerns Orders: Orders XR forearm LT 2V Today S52.209A - Unspecified fracture of shaft of unspecified ulna, initial encounter for closed fracture, S52.90XA - Unspecified fracture of unspecified forearm, initial encounter for closed fracture Coding Level of Care Code Global (66319) Diagnoses Noninfected skin tear of right lower extremity S81.811A Fracture of left ulna S52.202A Fall W19.XXXA Laceration of skin of left knee without complication S81.012A Skin tear of forearm without complication S51.819A
== END 2025-06-25 14:56 | disposition home or self-care (01) ==
LOC: HO.HOS 14:00
DX: S81.811A Laceration without foreign body, right lower leg, initial encounter (principal); S52.202A Unspecified fracture of shaft of left ulna, initial encounter for closed fracture; W19.XXXA Unspecified fall, initial encounter; S81.012A Laceration without foreign body, left knee, initial encounter; S51.819A Laceration without foreign body of unspecified forearm, initial encounter
CPT/HCPCS: 99024

== ENCOUNTER → 2025-06-25 14:04 | Outpatient (BNV) | payer MEDICARE, SELFPAY | PROVIDERS: Visit Provider Radiology Diagnostic Radiology | DX: S52.602D Unspecified fracture of lower end of left ulna, subsequent encounter for closed fracture with routine healing (principal) | CPT/HCPCS: 73090 ==

== ENCOUNTER 2025-07-09 07:10 | Outpatient (REF) | payer MEDICARE, SELFPAY ==
--- OUTSIDE RECORDS SUMMARY | 2021-02-04 10:39 | XMS_ITS | Encounter Summary ---
Author Organization [facility] Address [address] [place] [phone] Phone Care Team Providers Care Core Machine Tender Name Role Phone Yareli Lobato BLIND INSTALLER Primary Care Provider + Encounter Details Date Type Department Care Team (Late st Contact Info) Description 02/04/2021 11:39 AM EDT Hospital Encounter [facility] [address] [place] [phone] Mia Danielle FNP [address] [place] [phone] [email or web address] Social History Tobacco Use Types Packs/Day Years Used Date Smoking Tobacco: Never Smokeless Tobacco: Never Education Answer Date Recorded Are you interested in more education? Not on mc e 12/09/2022 Are you concerned about learning? Not on file 12/09/2022 No 12/09/2022 No 12/09/2022 Digital Access Answer Date Recorded No 01/07/2023 No 01/07/2023 No 01/07/2023 Reliable internet access at home? Not on file 01/07/2023 Device with a working camera? Not on file Comments Unknown Sex and Gender Information Value Date Recorded Sex Assigned at Not on file Legal Sex Female 10:11 PM EDT Gender Identity Not on file Sexual Orientation Not on file documented as of this encounter Plan of Treatment Not on file documented as of this encounter Procedures Procedure Name Priority Date/Time Associated Diagnosis Comments XR HIP 2 VW LEFT PLUS PELVIS Urgent/patient waiting 02/04/2021 11:54 AM EDT Fall, initial encounter documented in this encounter Results * XR HIP 2 VW LEFT PLUS PELVIS (02/04/2021 11:54 AM EDT) Anatomical Region Laterality Modality Hip, Pelvis Computed Radiogr aphy 02/04/2021 12:0 7 PM EDT Impressions 02/04/2021 12:34 PM EDT No acute displaced fracture. Diffuse osteopenia. If patient has significant pain or cannot bear weight, occult fracture is not excluded. ATTESTATION: Janeth Tirado as teaching physician, have reviewed the images for this case and if necessary edited the report originally created by Onel Powers. Narrative 02/04/2021 12:34 PM EDT XR HIP 2 VW LEFT PLUS PELVIS COMPARISON: None FINDINGS: Pelvis: No acute displaced fracture. Bowel gas and stool partially obscures the visualization of the sacrum. The sacral arcuate lines are otherwise maintained. Degenerative changes noted at the visualized spine and bilateral sacroiliac joint. Frontal evaluation of the right hip demonstrates severe degenerative change. Diffuse osteopenia. Left hip: No acute displaced fracture or dislocation. Moderate degenerative changes. Diffuse osseous demineralization. Procedure Note Laura Guerrier MD - 02/04/2021 XR HIP 2 VW LEFT PLUS PELVIS COMPARISON: None FINDINGS: Pelvis: No acute displaced fracture. Bowel gas and stool partiallyobscures the visualization of the sacrum. The sacral arcuate lines areotherwise maintained. Degenerative changes noted at the visualized spineand bilateral sacroiliac joint. Frontal evaluation of the right hipdemonstrates severe degenerative change. Diffuse osteopenia. Left hip: No acute displaced fracture or dislocation. Moderatedegenerative changes. Diffuse osseous demineralization. IMPRESSION: No acute displaced fracture. Diffuse osteopenia. If patient has significant pain or cannot bear weight, occult fracture isnot excluded. ATTESTATION: Janeth Tirado as teaching physician, havereviewed the images for this case and if necessary edited the reportoriginally created by Onel Powers. Mia Danielle URBAN DESIGNER IMG XR PELVIS Final Resul t documented in this encounter Visit Diagnoses Not on filedocumented in this encounter Care Teams Core Machine Tender Relationship Specialty Start Date End Date Yareli Lobato NP [address] [place] [phone] PCP - General Nurse Practitioner 10/11/18 documented as of this encounter Additional Source Comments The information contained in this document represents components of the legal health record. It is not the complete legal health record.[facility]
--- OUTSIDE RECORDS SUMMARY | 2021-02-04 10:39 | XMS_ITS | Encounter Summary ---
Author Organization [facility] Address [address] [place] [phone] Phone Care Team Providers Care Armored Truck Driver Name Role Phone Yareli Lobato CURRICULUM DESIGNER Primary Care Provider + Encounter Details Date Type Department Care Team (Late st Contact Info) Description 02/04/2021 11:39 AM EDT Hospital Encounter [facility] [address] [place] [phone] Mia Danielle FNP [address] [place] [phone] [email or web address] Social History Tobacco Use Types Packs/Day Years [...] Name Priority Date/Time Associated Diagnosis Comments XR HUMERUS (LEFT) Urgent/patient waiting 02/04/2021 11:53 AM EDT Fall, initial encounter documented in this encounter Results * XR Humerus (Left) (02/04/2021 11:53 AM EDT) Anatomical Region Laterality Modality Arm Left Computed Radiogr aphy 02/04/2021 12:0 6 PM EDT Impressions 02/04/2021 12:26 PM EDT 1. No acute displaced fracture or dislocation of the left humerus. Diffuse osteopenia. 2. Mild deformity of the lateral arch of seventh left rib. Needs clinical correlation if focal tenderness ATTESTATION: Janeth Tirado as teaching physician, have reviewed the images for this case and if necessary edited the report originally created by Onel Powers. Narrative 02/04/2021 12:26 PM EDT XR HUMERUS (LEFT) COMPARISON: None FINDINGS: No acute displaced fracture. Alignment is maintained. No lytic or blastic lesion. Visualized portions of the shoulder and elbow appear preserved. Diffuse osteopenia. Mild deformity of the lateral arch of seventh left rib.. Procedure Note Laura Guerrier MD - 02/04/2021 XR HUMERUS (LEFT) COMPARISON: None FINDINGS: No acute displaced fracture. Alignment is maintained. No lytic or blasticlesion. Visualized portions of the shoulder and elbow appear preserved.Diffuse osteopenia. Mild deformity of the lateral arch of seventh left rib.. IMPRESSION: 1. No acute displaced fracture or dislocation of the left humerus. Diffuseosteopenia. 2. Mild deformity of the lateral arch of seventh left rib. Needs clinicalcorrelation if focal tenderness ATTESTATION: Janeth Tirado as teaching physician, havereviewed the images for this case and if necessary edited the reportoriginally created by Onel Powers. Mia Danielle CITY ASSESSOR IMG XR UPPER EXTREMITY Ana l Result documented in this encounter Visit Diagnoses Not on filedocumented in this encounter Care Teams Armored Truck Driver Relationship Specialty Start Date End Date Yareli Loabto NP [address] [place] [phone] PCP - General Nurse Practitioner 10/11/18 documented as of this encounter Additional Source Comments The information contained in this document represents components of the legal health record. It is not the complete legal health record.[facility]
--- OUTSIDE RECORDS SUMMARY | 2024-05-02 09:30 | XMS_ITS ---
Author Organization [facility] Address [address] [place] [address] Care Team Providers Care Superintendent Track Name Role Phone Arielle Smith Primary Care Provider Unavailabl Lani Godoy [phone] Encounters Encounter Location Date Provider Diagnosis [address] [address] 05/02/2024 Lani Ricketts Plan Of Treatment No Information Progress Notes * Lainey MORRELL RDOB:[birth year] (85 yo F)Acc No.[id number]:05/02/2024 Progress Note Patient: Lainey MCNAIR Provider: Chanda Ricketts DPM :1940 A ge:84 Y S ex:Female Date:05/02/2024 Address:[address] [place] [phone] Pcp:Arielle Smith Subjective: * Chief Complaints: * [...] 0 05/02/2024 Generated for Printi ng/Fanayg/eTransmitting on: 09/11/2024 07:14 AM EST
--- OUTSIDE RECORDS SUMMARY | 2025-06-09 10:00 | XMS_ITS ---
Author Organization [facility] Address [address] [place] [address] Care Team Providers Care Sap Bw Bi Developer Name Role Phone Arielle Smith Primary Care Provider Unavailabl Lani Godoy [phone] Encounters Encounter Location Date Provider Diagnosis [address] [address] 06/09/2025 Lani Ricketts Plan Of Treatment No Information Progress Notes * Lainey MORRELL RDOB:[birth year] (85 yo F)Acc No.[id number]:06/09/2025 Progress Note Patient: Lainey MCNAIR Provider: Chanda Ricketts DPM :1940 A ge:85 Y S ex:Female Date:06/09/2025 Address:[address] [place] [id number] Pcp:Arielle Smith Subjective: * Chief Complaints: * [...] DPM Date: Generated for Printi ng/Fanayg/eTransmitting on: 09/11/2024 07:14 AM EST
--- NOTE | ~2025-07-09 | XR_ITS ---
EXAMINATION: XR FOREARM, LEFT CLINICAL INFORMATION: S52.90XA - Unspecified fracture of unspecified forearm, initial encounte... COMPARISON: Radiographs of the left forearm on June 25, 2025 TECHNIQUE: AP and lateral views of the left forearm were obtained. FINDINGS: Healing oblique fracture of the distal third diaphysis of the ulna, with mild interval progression of the periosteal new bone formation. Redemonstration of minimal step-off of the cortex, however, with improvement of the alignment between the fracture fragments. XR/XR forearm LT 2V IMPRESSION: Healing distal ulnar fracture. Unchanged similar minimally step-off of the cortex, but with improvement of the alignment. Electronically signed by: Ziggy Dunham MD 07/09/2025 01:47 PM [facility]
--- OUTSIDE RECORDS SUMMARY | 2025-07-12 07:14 | XMS_ITS | Encounter Summary ---
Author Organization [facility] Address [address] [place] [address] Care Team Providers Care Branch Office Administrator Name Role Phone Lalito Sanchez MD Primary Care Provider +1- [phone] Encounter Details Date Type Department Care Team (Late st Contact Info) Description 06/21/[address] [facility] - Main Lab [address] [facility] [place] [address] Lalito Sanchez MD [address] [place] [address] Unspecified atrial fibrillation (CMS/HCC V24, CMS/HCC V28); [...] mmol/L LAB CHEMISTRY METHOD 06/23/2025 10:54 AM [facility] Potassium 4.4 3.5 - 5.5 mmol/L LAB CHEMISTRY METHOD 06/23/2025 10:54 AM [facility] Chloride 100 96 - 110 mmol/L LAB CHEMISTRY METHOD 06/23/2025 10:54 AM [facility] CO2 28 21 - 32 mmol/L LAB CHEMISTRY METHOD 06/23/2025 10:54 AM [facility] Anion Gap 7 3 - 11 LAB CHEMISTRY METHOD 06/23/2025 10:54 AM [facility] Glucose 82 70 - 100 mg/dL LAB CHEMISTRY METHOD 06/23/2025 10:54 AM [facility] BUN 16 5 - 25 mg/dL LAB CHEMISTRY METHOD 06/23/2025 10:54 AM [facility] Creatinine 0.57 0.50 - 1.10 mg/dL LAB CHEMISTRY METHOD 06/23/2025 10:54 AM [facility] eGFR 90 >=60 mL/min/1. 73m2 LAB CHEMISTRY METHOD 06/23/2025 10:54 AM [facility] Comment:Calculation based on the Chronic Kidney Disease Epidemiology Collaboration (CKD-EPI) equation refit without adjustment for race. BUN/Creatinine Ratio 28.1 LAB CHEMISTRY METHOD 06/23/2025 10:54 AM [facility] Calcium 8.8 8.5 - 10.5 mg/dL LAB CHEMISTRY METHOD 06/23/2025 10:54 AM [facility] Blood Venous blood specimen / Unknown Venipuncture / Unknown 06/23/2025 6:47 AM EST 06/23/2025 10:12 AM EST us Lalito Sanchez MD LAB BLOOD ORDERABLES Final Result [facility] [address] [place] [address], * (ABNORMAL) Complete blood count (06/23/2025 6:47 AM EST) [facility] WBC 8.2 4.8 - 10.8 K/mcL LAB HEMETOLOGY METHOD 06/23/2025 10:33 AM EST [facility] RBC 3.50(L) 3.80 - 4.80 M/mcL LAB HEMETOLOGY METHOD 06/23/2025 10:33 AM [facility] Hemoglobin 10.3(L) 11.5 - 16.0 g/dL LAB HEMETOLOGY METHOD 06/23/2025 10:33 AM [facility] Hematocrit 32.3(L) 35.0 - 47.0 % LAB HEMETOLOGY METHOD 06/23/2025 10:33 AM [facility] MCV 93.4 79.0 - 98.0 FL LAB HEMETOLOGY METHOD 06/23/2025 10:33 AM [facility] MCH 29.8 27.0 - 32.0 pcg LAB HEMETOLOGY METHOD 06/23/2025 10:33 AM [facility] MCHC 31.9(L) 32.0 - 37.0 g/dL LAB HEMETOLOGY METHOD 06/23/2025 10:33 AM [facility] RDW 15.2(H) 11.0 - 15.0 % LAB HEMETOLOGY METHOD 06/23/2025 10:33 AM [facility] Platelets 490(H) 130 - 400 K/mcL LAB HEMETOLOGY METHOD 06/23/2025 10:33 AM [facility] MPV 8.4 7.0 - 11.0 FL LAB HEMETOLOGY METHOD 06/23/2025 10:33 AM [facility] NRBC 0.0 <1.0 % LAB HEMETOLOGY METHOD 06/23/2025 10:33 AM EST [facility] NRBC Absolute 0.00 <0.10 K/mcL LAB HEMETOLOGY METHOD 06/23/2025 10:33 AM EST [facility] Blood Venous blood specimen / Unknown Venipuncture / Unknown 06/23/2025 6:47 AM EST 06/23/2025 10:12 AM EST us Lalito Sanchez MD LAB BLOOD ORDERABLES Final Result [facility] [address] [place] [address], documented in this encounter Visit Diagnoses Diagnosis Unspecified atrial fibrillation (CMS/HCC V24, CMS/HCC V28) Gastro-esophageal reflux disease without esophagitis Unspecified asthma, uncomplicated Essential (primary) hypertension Unspecified essential hypertension documented in this encounter Care Teams Branch Office Administrator Relationship Specialty Start Date End Date Lalito Sanchez MD [address] [place] [id number] PCP - General Internal Medicine 06/12/25 documented as of this encounter
--- OUTSIDE RECORDS SUMMARY | 2025-07-12 07:14 | XMS_ITS | Encounter Summary ---
Author Organization [facility] Address [address] [place] [address] Care Team Providers Care Tire Molder Name Role Phone Lalito Sanchez MD Primary Care Provider +1- [phone] Encounter Details Date Type Department Care Team (Late st Contact Info) Description 06/12/2025 Lab Requisition [facility] - Main Lab [address] [facility] [place] [address] Lalito Sanchez MD [address] [place] [address] Unspecified atrial fibrillation (CMS/HCC V24, CMS/HCC V28); [...] mmol/L LAB CHEMISTRY METHOD 06/12/2025 10:[address] [facility] Potassium 4.3 3.5 - 5.5 mmol/L LAB CHEMISTRY METHOD 06/12/2025 10:[address] [facility] Chloride 100 96 - 110 mmol/L LAB CHEMISTRY METHOD 06/12/2025 10:[address] [facility] CO2 25 21 - 32 mmol/L LAB CHEMISTRY METHOD 06/12/2025 10:[address] [facility] Anion Gap 8 3 - 11 LAB CHEMISTRY METHOD 06/12/2025 10:[address] [facility] Glucose 86 70 - 100 mg/dL LAB CHEMISTRY METHOD 06/12/2025 10:[address] [facility] BUN 17 5 - 25 mg/dL LAB CHEMISTRY METHOD 06/12/2025 10:[address] [facility] Creatinine 0.53 0.50 - 1.10 mg/dL LAB CHEMISTRY METHOD 06/12/2025 10:[address] [facility] eGFR 92 >=60 mL/min/1. 73m2 LAB CHEMISTRY METHOD 06/12/2025 10:[address] [facility] Comment:Calculation based on the Chronic Kidney Disease Epidemiology Collaboration (CKD-EPI) equation refit without adjustment for race. BUN/Creatinine Ratio 32.1 LAB CHEMISTRY METHOD 06/12/2025 10:[address] [facility] Calcium 8.2(L) 8.5 - 10.5 mg/dL LAB CHEMISTRY METHOD 06/12/2025 10:[address] [facility] AST (SGOT) 70(H) 10 - 42 unit/L LAB CHEMISTRY METHOD 06/12/2025 10:[address] [facility] ALT (SGPT) 48 10 - 60 unit/L LAB CHEMISTRY METHOD 06/12/2025 10:38 AM EDT [facility] Alkaline Phosphatase 104 42 - 121 unit/L LAB CHEMISTRY METHOD 06/12/2025 10:38 AM EDT [facility] Total Protein 4.9(L) 6.0 - 8.0 g/dL LAB CHEMISTRY METHOD 06/12/2025 10:38 AM T [facility] Albumin 2.0(L) 3.2 - 5.0 g/dL LAB CHEMISTRY METHOD 06/12/2025 10:38 AM EDT [facility] Total Bilirubin 0.4 0.0 - 1.4 mg/dL LAB CHEMISTRY METHOD 06/12/2025 10:[address] [facility] Blood Venous blood specimen / Unknown Venipuncture / Unknown 06/12/2025 4:41 AM EDT 06/12/2025 9:23 AM EDT Lalito Sanchez MD LAB BLOOD ORDERABLES Final Result [facility] [address] [place] [address], * (ABNORMAL) Complete blood count (06/12/2025 4:41 AM EDT) WBC 7.1 4.8 - 10.8 K/mcL LAB HEMETOLOGY METHOD 06/12/2025 9:46 AM EDT [facility] RBC 3.20(L) 3.80 - 4.80 M/[facility] LAB HEMETOLOGY METHOD 06/12/2025 9:46 AM EDT [facility] Hemoglobin 9.5(L) 11.5 - 16.0 g/dL LAB HEMETOLOGY METHOD 06/12/2025 9:46 AM T [facility] Hematocrit 29.1(L) 35.0 - 47.0 % LAB HEMETOLOGY METHOD 06/12/2025 9:46 AM EDT [facility] MCV 91.2 79.0 - 98.0 FL LAB HEMETOLOGY METHOD 06/12/2025 9:46 AM EDT [facility] MCH 29.8 27.0 - 32.0 pcg LAB HEMETOLOGY METHOD 06/12/2025 9:46 AM EDT [facility] MCHC 32.6 32.0 - 37.0 g/dL LAB HEMETOLOGY METHOD 06/12/2025 9:46 AM EDT [facility] RDW 15.9(H) 11.0 - 15.0 % LAB HEMETOLOGY METHOD 06/12/2025 9:46 AM EDT [facility] Platelets 391 130 - 400 K/mcL LAB HEMETOLOGY METHOD 06/12/2025 9:46 AM EDT [facility] MPV 8.2 7.0 - 11.0 FL LAB HEMETOLOGY METHOD 06/12/2025 9:46 AM EDT [facility] NRBC 0.0 <1.0 % LAB HEMETOLOGY METHOD 06/12/2025 9:46 AM EDT [facility] NRBC Absolute 0.00 <0.10 K/mcL LAB HEMETOLOGY METHOD 06/12/2025 9:[address] [facility] Blood Venous blood specimen / Unknown Venipuncture / Unknown 06/12/2025 4:41 AM EDT 06/12/2025 9:23 AM EDT us Lalito Sanchez MD LAB BLOOD ORDERABLES Final Result [facility] [address] [place] [address], documented in this encounter Visit Diagnoses Diagnosis Unspecified atrial fibrillation (CMS/HCC V24, CMS/HCC V28) Essential (primary) hypertension Unspecified essential hypertension Gastro-esophageal reflux disease without esophagitis Other asthma Repeated falls documented in this encounter Care Teams Tire Molder Relationship Specialty Start Date End Date Lalito Sanchez MD [address] [place] [id number] PCP - General Internal Medicine 06/12/25 documented as of this encounter
--- OUTSIDE RECORDS SUMMARY | 2025-07-12 07:14 | XMS_ITS | Encounter Summary ---
Author Organization [facility] Address [address] [place] [address] Care Team Providers Care Iv Rn Name Role Phone Lalito Sanchez MD Primary Care Provider +1- [phone] Encounter Details Date Type Department Care Team (Late st Contact Info) Description 07/08/2025 Lab Requisition [facility] - Main Lab [address] [facility] [address] Lalito Sanchez MD [address] [place] [address] Elevated white blood cell count, unspecified Social History Tobacco Use Types Packs/Day Years Used Date Smoking Tobacco: Never Smokeless Tobacco: Never Comments Unknown Sex and Gender Information Value Date Recorded Sex Assigned at Not on file Legal Sex Female 11:41 PM EST Gender Identity Not on file Sexual Orientation Not on file documented as of this encounter Plan of Treatment Pending Results Name Type Priority Associated Diagnoses Date /Time Culture blood Microbiology Routine Elevated white blood cell count, unspecified 07/08/2025 5:32 AM EST documented as of this encounter Procedures Procedure Name Priority Date/Time Associated Diagnosis Comments CULTURE BLOOD Routine 07/08/2025 5:32 AM EST Elevated white blood cell count, unspecified documented in this encounter Visit Diagnoses Diagnosis Elevated white blood cell count, unspecified documented in this encounter Care Teams Iv Rn Relationship Specialty Start Date End Date Lalito Sanchez MD [address] [place] [address] PCP - General Internal Medicine 06/12/25 documented as of this encounter
--- OUTSIDE RECORDS SUMMARY | 2025-07-12 07:14 | XMS_ITS | Encounter Summary ---
Author Organization [facility] [address] Address [address] [place] [address] Care Team Providers Care Front End Ui Developer Name Role Phone Lalito Sanchez MD Primary Care Provider +1- [phone] Encounter Details Date Type Department Care Team (Late st Contact Info) Description 06/28/2025 Lab Requisition [facility] - Main Lab [address] [facility] [place] [address] Lalito Sanchez MD [address] [place] [address] Essential (primary) hypertension; Unspecified atrial fibrillation (CMS/HCC V24, CMS/HCC V28); Unspecified asthma, uncomplicated; Gastro-esophageal reflux disease without esophagitis Social History Tobacco Use Types Packs/Day Years [...] Associated Diagnosis Comments COMPLETE BLOOD COUNT Routine 06/30/2025 6:50 AM EST Essential (primary) hypertension Unspecified atrial fibrillation (CMS/HCC V24, CMS/HCC V28) Unspecified asthma, uncomplicated Gastro-esophageal reflux disease without esophagitis BASIC METABOLIC PANEL Routine 06/30/2025 6:50 AM EST Essential (primary) hypertension Unspecified atrial fibrillation (CMS/HCC V24, CMS/HCC V28) Unspecified asthma, uncomplicated Gastro-esophageal reflux disease without esophagitis documented in this encounter Results * Basic metabolic panel (06/30/2025 6:50 AM EST) Sodium 137 133 - 145 mmol/L LAB CHEMISTRY METHOD 06/30/2025 1:13 PM [facility] Potassium 4.1 3.5 - 5.5 mmol/L LAB CHEMISTRY METHOD 06/30/2025 1:13 PM [facility] Chloride 104 96 - 110 mmol/L LAB CHEMISTRY METHOD 06/30/2025 1:13 PM [facility] CO2 27 21 - 32 mmol/L LAB CHEMISTRY METHOD 06/30/2025 1:13 PM [facility] Anion Gap 6 3 - 11 LAB CHEMISTRY METHOD 06/30/2025 1:13 PM [facility] Glucose 79 70 - 100 mg/dL LAB CHEMISTRY METHOD 06/30/2025 1:13 PM [facility] BUN 15 5 - 25 mg/dL LAB CHEMISTRY METHOD 06/30/2025 1:13 PM [facility] Creatinine 0.55 0.50 - 1.10 mg/dL LAB CHEMISTRY METHOD 06/30/2025 1:13 PM [facility] eGFR 91 >=60 mL/min/1. 73m2 LAB CHEMISTRY METHOD 06/30/2025 1:13 PM [facility] Comment:Calculation based on the Chronic Kidney Disease Epidemiology Collaboration (CKD-EPI) equation refit without adjustment for race. BUN/Creatinine Ratio 27.3 LAB CHEMISTRY METHOD 06/30/2025 1:13 PM [facility] Calcium 8.8 8.5 - 10.5 mg/dL LAB CHEMISTRY METHOD 06/30/2025 1:13 PM [facility] Blood Venous blood specimen / Unknown Venipuncture / Unknown 06/30/2025 6:50 AM EST 06/30/2025 11:10 AM EST us Lalito Sanchez MD LAB BLOOD ORDERABLES Final Result [facility] [address] [place] [address], * (ABNORMAL) Complete blood count (06/30/2025 6:50 AM EST) [facility] WBC 6.9 4.8 - 10.8 K/mcL LAB HEMETOLOGY METHOD 06/30/2025 11:53 AM EST [facility] RBC 3.50(L) 3.80 - 4.80 M/mcL LAB HEMETOLOGY METHOD 06/30/2025 11:53 AM EST [facility] Hemoglobin 10.3(L) 11.5 - 16.0 g/dL LAB HEMETOLOGY METHOD 06/30/2025 11:53 AM [facility] Hematocrit 31.8(L) 35.0 - 47.0 % LAB HEMETOLOGY METHOD 06/30/2025 11:53 AM EST [facility] MCV 91.6 79.0 - 98.0 FL LAB HEMETOLOGY METHOD 06/30/2025 11:53 AM [facility] MCH 29.7 27.0 - 32.0 pcg LAB HEMETOLOGY METHOD 06/30/2025 11:53 AM [facility] MCHC 32.4 32.0 - 37.0 g/dL LAB HEMETOLOGY METHOD 06/30/2025 11:53 AM EST [facility] RDW 15.7(H) 11.0 - 15.0 % LAB HEMETOLOGY METHOD 06/30/2025 11:53 AM [facility] Platelets 414(H) 130 - 400 K/mcL LAB HEMETOLOGY METHOD 06/30/2025 11:53 AM [facility] MPV 8.5 7.0 - 11.0 FL LAB HEMETOLOGY METHOD 06/30/2025 11:53 AM [facility] NRBC 0.0 <1.0 % LAB HEMETOLOGY METHOD 06/30/2025 11:53 AM EST [facility] NRBC Absolute 0.00 <0.10 K/mcL LAB HEMETOLOGY METHOD 06/30/2025 11:53 AM EST [facility] Blood Venous blood specimen / Unknown Venipuncture / Unknown 06/30/2025 6:50 AM EST 06/30/2025 11:10 AM EST us Lalito Sanchez MD LAB BLOOD ORDERABLES Final Result [facility] [address] [place] [address], documented in this encounter Visit Diagnoses Diagnosis Essential (primary) hypertension Unspecified essential hypertension Unspecified atrial fibrillation (CMS/HCC V24, CMS/HCC V28) Unspecified asthma, uncomplicated Gastro-esophageal reflux disease without esophagitis documented in this encounter Care Teams Front End Ui Developer Relationship Specialty Start Date End Date Lalito Sanchez MD [address] [place] [id number] PCP - General Internal Medicine 06/12/25 documented as of this encounter
--- OUTSIDE RECORDS SUMMARY | 2025-07-12 07:14 | XMS_ITS | Clinical Summary ---
Author Organization [address] Address [address] [place] [address] Phone Care Team Providers Care [employer] Steward/Stewardess Name Role Phone Lalito Sanchez MD Primary Care Provider [phone]- [phone] Encounters Date Type Department Care Team Description 07/11/2025 Lab Requisition [facility] [address] [place] [address] Lalito Sanchez MD Essential (primary) hypertension; Unspecified atrial fibrillation (CMS/HCC V24, CMS/HCC V28); Unspecified asthma, uncomplicated; Gastro-esophageal reflux disease without esophagitis 07/10/2025 Lab Requisition [facility] [address] [place] [address] Lalito Sanchez MD Other abnormal findings in urine 07/10/2025 Lab Requisition [facility] [address] [place] [address] Lalito Sanchez MD Altered mental status, unspecified 07/08/2025 Lab Requisition [facility] [address] [place] [address] Lalito Sanchez MD Elevated white blood cell count, unspecified 07/08/2025 Lab Requisition [facility] [address] [place] [address] Lalito Sanchez MD Elevated white blood cell count, unspecified 07/04/2025 Lab Requisition [facility] [address] [place] [address] Lalito Sanchez MD Essential (primary) hypertension; Unspecified atrial fibrillation ([facility]/HCC V24, CMS/HCC V28); Unspecified asthma, uncomplicated; Gastro-esophageal reflux disease without esophagitis 06/28/[address] [facility] [address] [place] [phone] Lalito Sanchez MD Essential (primary) hypertension; Unspecified atrial fibrillation (CMS/HCC V24, CMS/[facility] V28); Unspecified asthma, uncomplicated; Gastro-esophageal reflux disease without esophagitis 06/21/2025 Lab Requisition [facility] [address] [place] [phone] Lalito Sanchez MD Unspecified atrial fibrillation (CMS/[facility] V24, CMS/[facility] V28); Gastro-esophageal reflux disease without esophagitis; Unspecified asthma, uncomplicated; Essential (primary) hypertension 06/13/2025 Lab Requisition [facility] [address] [place] [phone] Lalito Sanchez MD Unspecified atrial fibrillation ([facility]/HCC V24, CMS/[facility] V28); Gastro-esophageal reflux disease without esophagitis; Unspecified asthma, uncomplicated; Essential (primary) hypertension 06/12/2025 Lab Requisition [facility] [address] [place] [phone] Lalito Sanchez MD Unspecified atrial fibrillation ([facility] V24, [facility] V28); Essential (primary) hypertension; Gastro-esophageal reflux disease [...] Depression Screening 08/14/2024 COVID-19 Vaccine ( - season) 2025 Influenza Vaccine (#1) 2025 Hypertension/CHF/CAD Annual BMP Blood Test 07/07/2026 07/07/2025, 06/30/2025, 06/23/2025, Additional history exists HIB Vaccines Aged Out No longer eligi [...] 20 months Aged Out No longer eligible based on patient's age to complete this topic Varicella Vaccines Aged Out No longer eligible based on patient's age to complete this topic Procedures Procedure Name Priority Date/Time Associated Diagnosis Comments URINALYSIS WITH REFLEX MICROSCOPIC Routine 07/09/2025 9:00 PM EST Other abnormal findings in urine URINALYSIS WITH REFLEX MICROSCOPIC Routine 07/09/2025 9:00 PM EST Other abnormal findings in urine CULTURE URINE Routine 07/08/2025 1:10 PM EST Altered mental status, unspecified CBC WITH AUTO DIFFERENTIAL Routine 07/08/2025 5:32 AM EST Elevated white blood cell count, unspecified CBC AND DIFFERENTIAL Routine 07/08/2025 5:32 AM EST Elevated white blood cell count, unspecified COMPLETE BLOOD COUNT Routine 07/08/2025 5:32 AM EST Elevated white blood cell count, unspecified CULTURE BLOOD Routine 07/08/2025 5:32 AM EST Elevated white blood cell count, unspecified CULTURE BLOOD Routine 07/08/2025 5:32 AM EST Elevated white blood cell count, unspecified BASIC METABOLIC PANEL Routine 07/07/2025 10:30 AM EST Essential (primary) hypertension Unspecified atrial fibrillation (CMS/HCC V24, CMS/HCC V28) Unspecified asthma, uncomplicated Gastro-esophageal reflux disease without esophagitis COMPLETE BLOOD COUNT Routine 07/07/2025 10:30 AM EST Essential (primary) hypertension Unspecified atrial fibrillation (CMS/HCC V24, CMS/HCC V28) Unspecified asthma, uncomplicated Gastro-esophageal reflux disease without esophagitis BASIC METABOLIC PANEL Routine 06/30/2025 6:50 AM EST Essential (primary) hypertension Unspecified atrial fibrillation (CMS/HCC V24, CMS/HCC V28) Unspecified asthma, uncomplicated Gastro-esophageal reflux disease without esophagitis COMPLETE BLOOD COUNT Routine 06/30/2025 6:50 AM EST Essential (primary) hypertension Unspecified atrial fibrillation (CMS/HCC V24, CMS/HCC V28) Unspecified asthma, uncomplicated Gastro-esophageal reflux disease without esophagitis BASIC METABOLIC PANEL Routine 06/23/2025 6:47 AM [...] from Last 3 Months Results * (ABNORMAL) Urinalysis with reflex microscopic (07/09/2025 9:00 PM EST) Specific [place] Urine 1.029 1.003 - 1.030 LAB URINALYSIS - AUTOMATED METHOD 07/10/2025 12:14 PM [facility] pH, Urine 5.0 5.0 - 8.0 pH LAB URINALYSIS - AUTOMATED METHOD 07/10/2025 12:14 PM [facility] Leukocytes, Urine Small(A) Negative LAB URINALYSIS - AUTOMATED METHOD 07/10/2025 12:14 PM [facility] Nitrite, Urine Negative Negative LAB URINALYSIS - AUTOMATED METHOD 07/10/2025 12:14 PM [facility] Protein, Urine Trace <=Trace mg/dL LAB URINALYSIS - AUTOMATED METHOD 07/10/2025 12:14 PM [facility] Glucose, Urine Negative Negative mg/dL LAB URINALYSIS - AUTOMATED METHOD 07/10/2025 12:14 PM [facility] Ketones, Urine Trace(A) Negative mg/dL LAB URINALYSIS - AUTOMATED METHOD 07/10/2025 12:14 PM [facility] Urobilinogen , Urine 1.0 0.2 - 1.0 mg/dL LAB URINALYSIS - AUTOMATED METHOD 07/10/2025 12:14 PM [facility] Bilirubin, Urine Small(A) Negative LAB URINALYSIS - AUTOMATED METHOD 07/10/2025 12:14 PM [facility] Blood, Urine Negative Negative LAB URINALYSIS - AUTOMATED METHOD 07/10/2025 12:14 PM [facility] RBC, Urine 2 0 - 4 /HPF 07/10/2025 12:14 PM [facility] WBC, Urine 6(H) 0 - 4 /HPF 07/10/2025 12:14 PM [facility] Squamous Epithelial, Urine >100(H) 0 - 60 /LPF 07/10/2025 12:14 PM [facility] Bacteria, Urine Moderate(A) Negative /HPF 07/10/2025 12:14 PM [facility] Urine Urine specimen obtained by clean catch procedure / Unknown Non-blood Collection / Unknown 07/09/2025 9:00 PM EST 07/10/2025 11:20 AM EST us Lalito Sanchez MD LAB URINE ORDERABLES Final Result [facility] [address] [place] [address], * Culture urine (07/08/2025 1:10 PM EST) Culture, Urine No growth 07/11/2025 10:49 AM EST [facility] Urine Urine specimen obtained by clean catch procedure / Unknown Non-blood Collection / Unknown 07/08/2025 1:10 PM EST 07/10/2025 11:10 AM EST Lalito Sanchez MD LAB MICROBIOLOGY - GENERAL ORDERABLES Final Result [facility] [address] [place] [address], * (ABNORMAL) CBC auto differential (07/08/2025 5:32 AM EST) WBC 12.3(H) 4.8 - 10.8 K/mcL LAB HEMETOLOGY METHOD 07/08/2025 11:59 AM [facility] Comment:This is an appended report. These results have been appended to a previously final verified report. RBC 3.40(L) 3.80 - 4.80 M/mcL LAB HEMETOLOGY METHOD 07/08/2025 11:59 AM EST [facility] Comment:This is an appended report. These results have been appended to a previously final verified report. Hemoglobin 10.0(L) 11.5 - 16.0 g/dL LAB HEMETOLOGY METHOD 07/08/2025 11:59 AM EST [facility] Comment:This is an appended report. These results have been appended to a previously final verified report. Hematocrit 31.1(L) 35.0 - 47.0 % LAB HEMETOLOGY METHOD 07/08/2025 11:59 AM EST [facility] Comment:This is an appended report. These results have been appended to a previously final verified report. MCV 91.5 79.0 - 98.0 FL LAB [facility] 07/08/2025 11:59 AM [facility] Comment:This is an appended report. These results have been appended to a previously final verified report. MCH 29.4 27.0 - 32.0 pcg LAB HEMETOLOGY METHOD 07/08/2025 11:59 AM [facility] Comment:This is an appended report. These results have been appended to a previously final verified report. MCHC 32.2 32.0 - 37.0 g/dL LAB HEMETOLOGY METHOD 07/08/2025 11:59 AM [facility] Comment:This is an appended report. These results have been appended to a previously final verified report. RDW 15.9(H) 11.0 - 15.0 % LAB HEMETOLOGY METHOD 07/08/2025 11:59 AM [facility] Comment:This is an appended report. These results have been appended to a previously final verified report. Platelets 330 130 - 400 K/mcL LAB HEMETOLOGY METHOD 07/08/2025 11:59 AM [facility] Comment:This is an appended report. These results have been appended to a previously final verified report. MPV 8.4 7.0 - 11.0 FL LAB HEMETOLOGY METHOD 07/08/2025 11:59 AM [facility] Comment:This is an appended report. These results have been appended to a previously final verified report. NRBC 0.0 <1.0 % LAB HEMETOLOGY METHOD 07/08/2025 11:59 AM [facility] Comment:This is an appended report. These results have been appended to a previously final verified report. NRBC Absolute 0.00 <0.10 K/mcL LAB HEMETOLOGY METHOD 07/08/2025 11:59 AM [facility] Comment:This is an appended report. These results have been appended to a previously final verified report. Neutrophils Relative 69.0 % LAB HEMETOLOGY METHOD 07/08/2025 11:59 AM [facility] Lymphocytes Relative 18.4 % LAB HEMETOLOGY METHOD 07/08/2025 11:59 AM [facility] Monocytes Relative 10.6 % LAB HEMETOLOGY METHOD 07/08/2025 11:59 AM [facility] Eosinophils Relative 1.3 % LAB HEMETOLOGY METHOD 07/08/2025 11:59 AM [facility] Basophils Relative 0.2 % LAB HEMETOLOGY METHOD 07/08/2025 11:59 AM [facility] Immature Granulocytes Relative 0.5 % LAB HEMETOLOGY METHOD 07/08/2025 11:59 AM [facility] Neutrophils Absolute 8.72(H) 1.50 - 7.00 K/mcL LAB HEMETOLOGY METHOD 07/08/2025 11:59 AM [facility] Lymphocytes Absolute 2.33 1.00 - 5.00 K/mcL LAB HEMETOLOGY METHOD 07/08/2025 11:59 AM [facility] Monocytes Absolute 1.34(H) 0.20 - 1.00 K/mcL LAB HEMETOLOGY METHOD 07/08/2025 11:59 AM [facility] Eosinophils Absolute 0.16 0.00 - 0.50 K/mcL LAB HEMETOLOGY METHOD 07/08/2025 11:59 AM [facility] Basophils Absolute 0.02 0.00 - 0.20 K/mcL LAB HEMETOLOGY METHOD 07/08/2025 11:59 AM [facility] Immature Granulocytes Absolute 0.06(H) 0.00 - 0.03 K/mcL LAB HEMETOLOGY METHOD 07/08/2025 11:59 AM [facility] Blood Venous blood specimen / Unknown Venipuncture / Unknown 07/08/2025 5:32 AM EST 07/08/2025 10:42 AM EST us Lalito Sanchez MD LAB BLOOD ORDERABLES Edite d Result - Final [facility] [address] [place], [place] [address] [phone] * (ABNORMAL) Complete blood count (07/08/2025 5:32 AM EST) Only the most recent of6 resultswithin the time period is included. WBC 12.3(H) 4.8 - 10.8 K/mcL LAB HEMETOLOGY METHOD 07/08/2025 11:58 AM [facility] RBC 3.40(L) 3.80 - 4.80 M/mcL LAB HEMETOLOGY METHOD 07/08/2025 11:58 AM [facility] Hemoglobin 10.0(L) 11.5 - 16.0 g/dL LAB HEMETOLOGY METHOD 07/08/2025 11:58 AM [facility] Hematocrit 31.1(L) 35.0 - 47.0 % LAB HEMETOLOGY METHOD 07/08/2025 11:58 AM [facility] MCV 91.5 79.0 - 98.0 FL LAB HEMETOLOGY METHOD 07/08/2025 11:58 AM [facility] MCH 29.4 27.0 - 32.0 pcg LAB HEMETOLOGY METHOD 07/08/2025 11:58 AM [facility] MCHC 32.2 32.0 - 37.0 g/dL LAB HEMETOLOGY METHOD 07/08/2025 11:58 AM [facility] RDW 15.9(H) 11.0 - 15.0 % LAB HEMETOLOGY METHOD 07/08/2025 11:58 AM [facility] Platelets 330 130 - 400 K/mcL LAB HEMETOLOGY METHOD 07/08/2025 11:58 AM [facility] MPV 8.4 7.0 - 11.0 FL LAB HEMETOLOGY METHOD 07/08/2025 11:58 AM [facility] NRBC 0.0 <1.0 % LAB HEMETOLOGY METHOD 07/08/2025 11:58 AM [facility] NRBC Absolute 0.00 <0.10 K/mcL LAB HEMETOLOGY METHOD 07/08/2025 11:58 AM [facility] Blood Venous blood specimen / Unknown Venipuncture / Unknown 07/08/2025 5:32 AM EST 07/08/2025 10:42 AM EST us Lalito Sanchez MD LAB BLOOD ORDERABLES Edite d Result - Final [facility] [address] [place] [address], * (ABNORMAL) Basic metabolic panel (07/07/2025 10:30 AM EST) Only the most recent of4 resultswithin the time period is included. Sodium 136 133 - 145 mmol/L 07/07/2025 1:50 PM [facility] Potassium 4.4 3.5 - 5.5 mmol/L 07/07/2025 1:50 PM [facility] Chloride 100 96 - 110 mmol/L 07/07/2025 1:50 PM [facility] CO2 27 21 - 32 mmol/L 07/07/2025 1:50 PM [facility] Anion Gap 9 3 - 11 07/07/2025 1:50 PM [facility] Glucose 75 70 - 100 mg/dL 07/07/2025 1:50 PM [facility] BUN 20 5 - 25 mg/dL 07/07/2025 1:50 PM [facility] Creatinine 0.63 0.50 - 1.10 mg/dL 07/07/2025 1:50 PM [facility] eGFR 88 >=60 mL/min/1. 73m2 07/07/2025 1:50 PM [facility] Comment:Calculation based on the Chronic Kidney Disease Epidemiology Collaboration (CKD-EPI) equation refit without adjustment for race. BUN/Creatinine Ratio 31.7 07/07/2025 1:50 PM EST [facility] Calcium 8.3(L) 8.5 - 10.5 mg/dL 07/07/2025 1:50 PM EST [facility] Blood Venous blood specimen / Unknown Venipuncture / Unknown 07/07/2025 10:30 AM EST 07/07/2025 11:32 AM EST us Lalito Sanchez MD LAB BLOOD ORDERABLES Final Result [facility] [address] [place] [address], [place] [phone] * (ABNORMAL) Comprehensive metabolic panel (06/12/2025 4:41 AM EDT) Sodium 133 133 - 145 mmol/L LAB CHEMISTRY METHOD 06/12/2025 10:38 AM [facility] Potassium 4.3 3.5 - 5.5 mmol/L LAB CHEMISTRY METHOD 06/12/2025 10:38 AM [facility] Chloride 100 96 - 110 mmol/L LAB CHEMISTRY METHOD 06/12/2025 10:38 AM [facility] CO2 25 21 - 32 mmol/L LAB CHEMISTRY METHOD 06/12/2025 10:38 AM [facility] Anion Gap 8 3 - 11 LAB CHEMISTRY METHOD 06/12/2025 10:38 AM [facility] Glucose 86 70 - 100 mg/dL LAB CHEMISTRY METHOD 06/12/2025 10:38 AM [facility] BUN 17 5 - 25 mg/dL LAB CHEMISTRY METHOD 06/12/2025 10:38 AM [facility] Creatinine 0.53 0.50 - 1.10 mg/dL LAB CHEMISTRY METHOD 06/12/2025 10:38 AM [facility] eGFR 92 >=60 mL/min/1. 73m2 LAB CHEMISTRY METHOD 06/12/2025 10:38 AM [facility] Comment:Calculation based on the Chronic Kidney Disease Epidemiology Collaboration (CKD-EPI) equation refit without adjustment for race. BUN/Creatinine Ratio 32.1 LAB CHEMISTRY METHOD 06/12/2025 10:38 AM [facility] Calcium 8.2(L) 8.5 - 10.5 mg/dL LAB CHEMISTRY METHOD 06/12/2025 10:38 AM [facility] AST (SGOT) 70(H) 10 - 42 unit/L LAB CHEMISTRY METHOD 06/12/2025 10:38 AM [facility] ALT (SGPT) 48 10 - 60 unit/L LAB CHEMISTRY METHOD 06/12/2025 10:38 AM [facility] Alkaline Phosphatase 104 42 - 121 unit/L LAB CHEMISTRY METHOD 06/12/2025 10:38 AM [facility] Total Protein 4.9(L) 6.0 - 8.0 g/dL LAB CHEMISTRY METHOD 06/12/2025 10:38 AM [facility] Albumin 2.0(L) 3.2 - 5.0 g/dL LAB CHEMISTRY METHOD 06/12/2025 10:38 AM [facility] Total Bilirubin 0.4 0.0 - 1.4 mg/dL LAB CHEMISTRY METHOD 06/12/2025 10:38 AM [facility] Blood Venous blood specimen / Unknown Venipuncture / Unknown 06/12/2025 4:41 AM EDT 06/12/2025 9:23 AM EDT us Lalito Sanchez MD LAB BLOOD ORDERABLES Final Result [facility] [address] [place] [address], [place] [phone] from Last 3 Months Insurance MEDICARE [facility] Care Teams [employer] Steward/Stewardess Relationship Specialty Start Date End Date Lalito Sanchez MD [address] [place] [id number] PCP - General Internal Medicine 06/12/25
--- OUTSIDE RECORDS SUMMARY | 2025-07-12 07:14 | XMS_ITS | Encounter Summary ---
Author Organization [facility] Address [address] [place] [address] Care Team Providers Care Telecommunicator Name Role Phone Lalito Sanchez MD Primary Care Provider +1- [phone] Encounter Details Date Type Department Care Team (Late st Contact Info) Description 07/08/2025 Lab Requisition [facility] - Main Lab [address] [facility] [email or web address] [address] Lalito Sanchez MD [address] [place] [address] Elevated white blood cell count, unspecified Social [...] Procedure Name Priority Date/Time Associated Diagnosis Comments CBC WITH AUTO DIFFERENTIAL Routine 07/08/2025 5:32 AM EST Elevated white blood cell count, unspecified CULTURE BLOOD Routine 07/08/2025 5:32 AM EST Elevated white blood cell count, unspecified COMPLETE BLOOD COUNT Routine 07/08/2025 5:32 AM EST Elevated white blood cell count, unspecified CBC AND DIFFERENTIAL Routine 07/08/2025 5:32 AM EST Elevated white blood cell count, unspecified documented in this encounter Results * (ABNORMAL) CBC auto differential (07/08/2025 5:32 AM EST) [facility] Signature WBC 12.3(H) 4.8 - 10.8 K/mcL LAB HEMETOLOGY METHOD 07/08/2025 11:59 AM [facility] Comment:This is an appended report. These results have been appended to a previously final verified report. RBC 3.40(L) 3.80 - 4.80 M/mcL LAB HEMETOLOGY METHOD 07/08/2025 11:59 AM [facility] Comment:This is an appended report. These results have been appended to a previously final verified report. Hemoglobin 10.0(L) 11.5 - 16.0 g/dL LAB HEMETOLOGY METHOD 07/08/2025 11:59 AM [facility] Comment:This is an appended report. These results have been appended to a previously final verified report. Hematocrit 31.1(L) 35.0 - 47.0 % LAB HEMETOLOGY METHOD 07/08/2025 11:59 AM [facility] Comment:This is an appended report. These results have been appended to a previously final verified report. MCV 91.5 79.0 - 98.0 FL LAB HEMETOLOGY METHOD 07/08/2025 11:59 AM [facility] Comment:This is an appended report. These results have been appended to a previously final verified report. MCH 29.4 27.0 - 32.0 pcg LAB HEMETOLOGY METHOD 07/08/2025 11:59 AM [facility] Comment:This is an appended report. These results have been appended to a previously final verified report. MCHC 32.2 32.0 - 37.0 g/dL LAB HEMETOLOGY METHOD 07/08/2025 11:59 AM [facility] Comment:This is an appended report. These results have been appended to a previously final verified report. RDW 15.9(H) 11.0 - 15.0 % LAB HEMETOLOGY METHOD 07/08/2025 11:59 AM [facility] Comment:This is an appended report. These results have been appended to a previously final verified report. Platelets 330 130 - 400 K/mcL LAB HEMETOLOGY METHOD 07/08/2025 11:59 AM [facility] Comment:This is an appended report. These results have been appended to a previously final verified report. MPV 8.4 7.0 - 11.0 FL LAB HEMETOLOGY METHOD 07/08/2025 11:59 AM [facility] Comment:This is an appended report. These results have been appended to a previously final verified report. NRBC 0.0 <1.0 % LAB HEMETOLOGY METHOD 07/08/2025 11:59 AM [facility] Comment:This is an appended report. These results have been appended to a previously final verified report. NRBC Absolute 0.00 <0.10 K/mcL LAB HEMETOLOGY METHOD 07/08/2025 11:59 AM [facility] Comment:This is an appended report. These results have been appended to a previously final verified report. Neutrophils Relative 69.0 % LAB HEMETOLOGY METHOD 07/08/2025 11:59 AM [facility] Lymphocytes Relative 18.4 % LAB HEMETOLOGY METHOD 07/08/2025 11:59 AM [facility] Monocytes Relative 10.6 % LAB HEMETOLOGY METHOD 07/08/2025 11:59 AM [facility] Eosinophils Relative 1.3 % LAB HEMETOLOGY METHOD 07/08/2025 11:59 AM [facility] Basophils Relative 0.2 % LAB HEMETOLOGY METHOD 07/08/2025 11:59 AM [facility] Immature Granulocytes Relative 0.5 % LAB HEMETOLOGY METHOD 07/08/2025 11:59 AM [facility] Neutrophils Absolute 8.72(H) 1.50 - 7.00 K/mcL LAB HEMETOLOGY METHOD 07/08/2025 11:59 AM EST [facility] Lymphocytes Absolute 2.33 1.00 - 5.00 K/[facility] LAB HEMETOLOGY METHOD 07/08/2025 11:59 AM EST [facility] Monocytes Absolute 1.34(H) 0.20 - 1.00 K/[facility] LAB HEMETOLOGY METHOD 07/08/2025 11:59 AM EST [facility] Eosinophils Absolute 0.16 0.00 - 0.50 K/[facility] LAB HEMETOLOGY METHOD 07/08/2025 11:59 AM EST [facility] Basophils Absolute 0.02 0.00 - 0.20 K/[facility] LAB HEMETOLOGY METHOD 07/08/2025 11:59 AM [facility] Immature Granulocytes Absolute 0.06(H) 0.00 - 0.03 K/[facility] LAB HEMETOLOGY METHOD 07/08/2025 11:59 AM [facility] Blood Venous blood specimen / Unknown Venipuncture / Unknown 07/08/2025 5:32 AM EST 07/08/2025 10:42 AM EST us Lalito Sanchez MD LAB BLOOD ORDERABLES Edite d Result - Final [facility] [address] [place] [address], * (ABNORMAL) Complete blood count (07/08/2025 5:32 AM EST) WBC 12.3(H) 4.8 - 10.8 K/mcL LAB HEMETOLOGY METHOD 07/08/2025 11:58 AM EST [facility] RBC 3.40(L) 3.80 - 4.80 M/mcL LAB HEMETOLOGY METHOD 07/08/2025 11:58 AM EST [facility] Hemoglobin 10.0(L) 11.5 - 16.0 g/dL LAB HEMETOLOGY METHOD 07/08/2025 11:58 AM [facility] Hematocrit 31.1(L) 35.0 - 47.0 % LAB HEMETOLOGY METHOD 07/08/2025 11:58 AM [facility] MCV 91.5 79.0 - 98.0 FL LAB HEMETOLOGY METHOD 07/08/2025 11:58 AM [facility] MCH 29.4 27.0 - 32.0 pcg LAB HEMETOLOGY METHOD 07/08/2025 11:58 AM [facility] MCHC 32.2 32.0 - 37.0 g/dL LAB HEMETOLOGY METHOD 07/08/2025 11:58 AM [facility] RDW 15.9(H) 11.0 - 15.0 % LAB HEMETOLOGY METHOD 07/08/2025 11:58 AM [facility] Platelets 330 130 - 400 K/mcL LAB HEMETOLOGY METHOD 07/08/2025 11:58 AM [facility] MPV 8.4 7.0 - 11.0 FL LAB HEMETOLOGY METHOD 07/08/2025 11:58 AM [facility] NRBC 0.0 <1.0 % LAB HEMETOLOGY METHOD 07/08/2025 11:58 AM [facility] NRBC Absolute 0.00 <0.10 K/mcL LAB HEMETOLOGY METHOD 07/08/2025 11:58 AM [facility] Blood Venous blood specimen / Unknown Venipuncture / Unknown 07/08/2025 5:32 AM EST 07/08/2025 10:42 AM EST us Lalito Sanchez MD LAB BLOOD ORDERABLES Edite d Result - Final [facility] LAB [address] [place] [address], documented in this encounter Visit Diagnoses Diagnosis Elevated white blood cell count, unspecified documented in this encounter Care Teams Telecommunicator Relationship Specialty Start Date End Date Lalito Sanchez MD [address] [place] [address] PCP - General Internal Medicine 06/12/25 documented as of this encounter
--- OUTSIDE RECORDS SUMMARY | 2025-07-12 07:14 | XMS_ITS | Encounter Summary ---
Author Organization [facility] Address [address] [place] [address] Care Team Providers Care Vacuum Cleaner Operator Name Role Phone Lalito Sanchez MD Primary Care Provider +1- [phone] Encounter Details Date Type Department Care Team (Late st Contact Info) Description 07/10/2025 Lab Requisition [facility] - Main Lab [address] [place] [address] Lalito Sanchez MD [address] [place] [address] Other abnormal findings in urine Social History Tobacco Use Types Packs/Day Years [...] PM EST Other abnormal findings in urine documented in this encounter Results * (ABNORMAL) Urinalysis with reflex microscopic (07/09/2025 9:00 PM EST) Specific [place] Urine 1.029 1.003 - 1.030 LAB URINALYSIS - AUTOMATED METHOD 07/10/2025 12:14 PM EST [facility] pH, Urine 5.0 5.0 - 8.0 pH LAB URINALYSIS - AUTOMATED METHOD 07/10/2025 12:14 PM [facility] Leukocytes, Urine Small(A) Negative LAB URINALYSIS - AUTOMATED METHOD 07/10/2025 12:14 PM [facility] Nitrite, Urine Negative Negative LAB URINALYSIS - AUTOMATED METHOD 07/10/2025 12:14 PM [facility] Protein, Urine Trace <=Trace mg/dL LAB URINALYSIS - AUTOMATED METHOD 07/10/2025 12:14 PM [facility] Glucose, Urine Negative Negative mg/dL LAB URINALYSIS - AUTOMATED METHOD 07/10/2025 12:14 PM [facility] Ketones, Urine Trace(A) Negative mg/dL LAB URINALYSIS - AUTOMATED METHOD 07/10/2025 12:14 PM [facility] Urobilinogen , Urine 1.0 0.2 - 1.0 mg/dL LAB URINALYSIS - AUTOMATED METHOD 07/10/2025 12:14 PM [facility] Bilirubin, Urine Small(A) Negative LAB URINALYSIS - AUTOMATED METHOD 07/10/2025 12:14 PM [facility] Blood, Urine Negative Negative LAB URINALYSIS - AUTOMATED METHOD 07/10/2025 12:14 PM [facility] RBC, Urine 2 0 - 4 /HPF 07/10/2025 12:14 PM [facility] WBC, Urine 6(H) 0 - 4 /HPF 07/10/2025 12:14 PM [facility] Squamous Epithelial, Urine >100(H) 0 - 60 /LPF 07/10/2025 12:14 PM [facility] Bacteria, Urine Moderate(A) Negative /HPF 07/10/2025 12:14 PM [facility] Urine Urine specimen obtained by clean catch procedure / Unknown Non-blood Collection / Unknown 07/09/2025 9:00 PM EST 07/10/2025 11:20 AM EST us Lalito Sanchez MD LAB URINE ORDERABLES Final Result [facility] [address] [place] [address], documented in this encounter Visit Diagnoses Diagnosis Other abnormal findings in urine documented in this encounter Care Teams Vacuum Cleaner Operator Relationship Specialty Start Date End Date Lalito Sanchez MD [address] [place] [address] PCP - General Internal Medicine 06/12/25 documented as of this encounter
--- OUTSIDE RECORDS SUMMARY | 2025-07-12 07:14 | XMS_ITS | Encounter Summary ---
Author Organization [facility] Address [address] [place] [address] Care Team Providers Care Professor Of Economics Name Role Phone Lalito Sanchez MD Primary Care Provider +1- [phone] Encounter Details Date Type Department Care Team (Late st Contact Info) Description 07/10/2025 Lab Requisition [facility] - Main Lab [address] [place] [address] Lalito Sanchez MD [address] [place] [address] Altered mental status, unspecified Social History Tobacco Use Types Packs/Day [...] Name Priority Date/Time Associated Diagnosis Comments CULTURE URINE Routine 07/08/2025 1:10 PM EST Altered mental status, unspecified documented in this encounter Results * Culture urine (07/08/2025 1:10 PM EST) Culture, Urine No growth 07/11/2025 10:49 AM EST [facility] Urine Urine specimen obtained by clean catch procedure / Unknown Non-blood Collection / Unknown 07/08/2025 1:10 PM EST 07/10/2025 11:10 AM EST Lalito Sanchez MD LAB MICROBIOLOGY - GENERAL ORDERABLES Final Result [facility] H[facility] LAB [address] [place] [address], documented in this encounter Visit Diagnoses Diagnosis Altered mental status, unspecified documented in this encounter Care Teams Professor Of Economics Relationship Specialty Start Date End Date Lalito Sanchez MD [address] [place] [address] PCP - General Internal Medicine 06/12/25 documented as of this encounter
--- OUTSIDE RECORDS SUMMARY | 2025-07-12 07:14 | XMS_ITS | Encounter Summary ---
Author Organization [facility] Address [address] [place] [address] Care Team Providers Care Chainsaw Mechanic Name Role Phone Lalito Sanchez MD Primary Care Provider +1- [phone] Encounter Details Date Type Department Care Team (Late st Contact Info) Description 07/04/2025 Lab Requisition [facility] - Main Lab [address] [facility] [place] [address] Lalito Sanchez MD [address] [place] [address] Essential (primary) hypertension; Unspecified atrial fibrillation (CMS/HCC [...] Associated Diagnosis Comments COMPLETE BLOOD COUNT Routine 07/07/2025 10:30 AM EST Essential (primary) hypertension Unspecified atrial fibrillation (CMS/HCC V24, CMS/HCC V28) Unspecified asthma, uncomplicated Gastro-esophageal reflux disease without esophagitis BASIC METABOLIC PANEL Routine 07/07/2025 10:30 AM EST Essential (primary) hypertension Unspecified atrial fibrillation (CMS/HCC V24, CMS/HCC V28) Unspecified asthma, uncomplicated Gastro-esophageal reflux disease without esophagitis documented in this encounter Results * (ABNORMAL) Basic metabolic panel (07/07/2025 10:30 AM EST) Sodium 136 133 - 145 mmol/L 07/07/2025 1:50 PM [facility] Potassium 4.4 3.5 - 5.5 mmol/L 07/07/2025 1:50 PM [facility] Chloride 100 96 - 110 mmol/L 07/07/2025 1:50 PM [facility] CO2 27 21 - 32 mmol/L 07/07/2025 1:50 PM [facility] Anion Gap 9 3 - 11 07/07/2025 1:50 PM [facility] Glucose 75 70 - 100 mg/dL 07/07/2025 1:50 PM [facility] BUN 20 5 - 25 mg/dL 07/07/2025 1:50 PM [facility] Creatinine 0.63 0.50 - 1.10 mg/dL 07/07/2025 1:50 PM [facility] eGFR 88 >=60 mL/min/1. 73m2 07/07/2025 1:50 PM [facility] Comment:Calculation based on the Chronic Kidney Disease Epidemiology Collaboration (CKD-EPI) equation refit without adjustment for race. BUN/Creatinine Ratio 31.7 07/07/2025 1:50 PM [facility] Calcium 8.3(L) 8.5 - 10.5 mg/dL 07/07/2025 1:50 PM [facility] Blood Venous blood specimen / Unknown Venipuncture / Unknown 07/07/2025 10:30 AM EST 07/07/2025 11:32 AM EST us Lalito Sanchez MD LAB BLOOD ORDERABLES Final Result [facility] [address] [place] [address], [place] [phone] * (ABNORMAL) Complete blood count (07/07/2025 10:30 AM EST) [facility] WBC 14.6(H) 4.8 - 10.8 K/mcL LAB HEMETOLOGY METHOD 07/07/2025 2:03 PM [facility] RBC 3.80 3.80 - 4.80 M/mcL LAB HEMETOLOGY METHOD 07/07/2025 2:03 PM [facility] Hemoglobin 11.4(L) 11.5 - 16.0 g/dL LAB HEMETOLOGY METHOD 07/07/2025 2:03 PM [facility] Hematocrit 34.8(L) 35.0 - 47.0 % LAB HEMETOLOGY METHOD 07/07/2025 2:03 PM [facility] MCV 92.6 79.0 - 98.0 FL LAB HEMETOLOGY METHOD 07/07/2025 2:03 PM [facility] MCH 30.3 27.0 - 32.0 pcg LAB HEMETOLOGY METHOD 07/07/2025 2:03 PM [facility] MCHC 32.8 32.0 - 37.0 g/dL LAB HEMETOLOGY METHOD 07/07/2025 2:03 PM [facility] RDW 15.9(H) 11.0 - 15.0 % LAB HEMETOLOGY METHOD 07/07/2025 2:03 PM [facility] Platelets 402(H) 130 - 400 K/mcL LAB HEMETOLOGY METHOD 07/07/2025 2:03 PM [facility] MPV 8.5 7.0 - 11.0 FL LAB HEMETOLOGY METHOD 07/07/2025 2:03 PM [facility] NRBC 0.0 <1.0 % LAB HEMETOLOGY METHOD 07/07/2025 2:03 PM [facility] NRBC Absolute 0.00 <0.10 K/[facility] LAB HEMETOLOGY METHOD 07/07/2025 2:03 PM EST [facility] Blood Venous blood specimen / Unknown Venipuncture / Unknown 07/07/2025 10:30 AM EST 07/07/2025 11:32 AM EST us Lalito Sanchez MD LAB BLOOD ORDERABLES Final Result [facility] [address] [place] [address], documented in this encounter Visit Diagnoses Diagnosis Essential (primary) hypertension Unspecified essential hypertension Unspecified atrial fibrillation (CMS/HCC V24, CMS/HCC V28) Unspecified asthma, uncomplicated Gastro-esophageal reflux disease without esophagitis documented in this encounter Care Teams Chainsaw Mechanic Relationship Specialty Start Date End Date Lalito Sanchez MD [address] [place] [address] PCP - General Internal Medicine 06/12/25 documented as of this encounter
--- OUTSIDE RECORDS SUMMARY | 2025-07-12 07:14 | XMS_ITS | Encounter Summary ---
Author Organization [facility] Address [address] [place] [address] Care Team Providers Care Bottle Capping Machine Operator Name Role Phone Lalito Sanchez MD Primary Care Provider +1- [phone] Encounter Details Date Type Department Care Team (Late st Contact Info) Description 06/13/2025 Lab Requisition [facility] - Main Lab [address] [facility] [place] [address] Lalito Sanchez MD [address] [place] [address] Unspecified atrial fibrillation (CMS/HCC V24, CMS/HCC V28); [...] mmol/L LAB CHEMISTRY METHOD 06/16/2025 2:06 PM [facility] Potassium 4.3 3.5 - 5.5 mmol/L LAB CHEMISTRY METHOD 06/16/2025 2:06 PM [facility] Chloride 98 96 - 110 mmol/L LAB CHEMISTRY METHOD 06/16/2025 2:06 PM [facility] CO2 27 21 - 32 mmol/L LAB CHEMISTRY METHOD 06/16/2025 2:06 PM [facility] Anion Gap 8 3 - 11 LAB CHEMISTRY METHOD 06/16/2025 2:06 PM [facility] Glucose 82 70 - 100 mg/dL LAB CHEMISTRY METHOD 06/16/2025 2:06 PM [facility] BUN 15 5 - 25 mg/dL LAB CHEMISTRY METHOD 06/16/2025 2:06 PM [facility] Creatinine 0.50 0.50 - 1.10 mg/dL LAB CHEMISTRY METHOD 06/16/2025 2:06 PM [facility] eGFR 93 >=60 mL/min/1. 73m2 LAB CHEMISTRY METHOD 06/16/2025 2:06 PM [facility] Comment:Calculation based on the Chronic Kidney Disease Epidemiology Collaboration (CKD-EPI) equation refit without adjustment for race. BUN/Creatinine Ratio 30.0 LAB CHEMISTRY METHOD 06/16/2025 2:06 PM [facility] Calcium 9.0 8.5 - 10.5 mg/dL LAB CHEMISTRY METHOD 06/16/2025 2:06 PM [facility] Blood Venous blood specimen / Unknown Venipuncture / Unknown 06/16/2025 8:29 AM EST 06/16/2025 11:17 AM EST us Lalito Sanchez MD LAB BLOOD ORDERABLES Final Result [facility] [address] [place] [address], * (ABNORMAL) Complete blood count (06/16/2025 8:29 AM EST) [facility] WBC 9.3 4.8 - 10.8 K/mcL LAB HEMETOLOGY METHOD 06/16/2025 1:55 PM EST [facility] RBC 3.80 3.80 - 4.80 M/mcL LAB HEMETOLOGY METHOD 06/16/2025 1:55 PM EST [facility] Hemoglobin 11.0(L) 11.5 - 16.0 g/dL LAB HEMETOLOGY METHOD 06/16/2025 1:55 PM EST [facility] Hematocrit 35.3 35.0 - 47.0 % LAB HEMETOLOGY METHOD 06/16/2025 1:55 PM EST [facility] MCV 92.4 79.0 - 98.0 FL LAB HEMETOLOGY METHOD 06/16/2025 1:55 PM EST [facility] MCH 28.8 27.0 - 32.0 pcg LAB HEMETOLOGY METHOD 06/16/2025 1:55 PM EST [facility] MCHC 31.2(L) 32.0 - 37.0 g/dL LAB HEMETOLOGY METHOD 06/16/2025 1:55 PM EST [facility] RDW 15.2(H) 11.0 - 15.0 % LAB HEMETOLOGY METHOD 06/16/2025 1:55 PM EST [facility] Platelets 544(H) 130 - 400 K/mcL LAB HEMETOLOGY METHOD 06/16/2025 1:55 PM [facility] MPV 8.2 7.0 - 11.0 FL LAB HEMETOLOGY METHOD 06/16/2025 1:55 PM EST [facility] NRBC 0.0 <1.0 % LAB HEMETOLOGY METHOD 06/16/2025 1:55 PM EST [facility] NRBC Absolute 0.00 <0.10 K/mcL LAB HEMETOLOGY METHOD 06/16/2025 1:55 PM EST [facility] Blood Venous blood specimen / Unknown Venipuncture / Unknown 06/16/2025 8:29 AM EST 06/16/2025 11:17 AM EST us Lalito Sanchez MD LAB BLOOD ORDERABLES Final Result [facility] [address] [place] [address], documented in this encounter Visit Diagnoses Diagnosis Unspecified atrial fibrillation (CMS/HCC V24, CMS/HCC V28) Gastro-esophageal reflux disease without esophagitis Unspecified asthma, uncomplicated Essential (primary) hypertension Unspecified essential hypertension documented in this encounter Care Teams Bottle Capping Machine Operator Relationship Specialty Start Date End Date Lalito Sanchez MD [address] [place] [address] PCP - General Internal Medicine 06/12/25 documented as of this encounter
--- OUTSIDE RECORDS SUMMARY | 2025-07-12 07:14 | XMS_ITS | Encounter Summary ---
Author Organization [facility] Address [address] [place] [address] Care Team Providers Care Sexual Health Physician Name Role Phone Lalito Sanchez MD Primary Care Provider +1- [phone] Encounter Details Date Type Department Care Team (Late st Contact Info) Description 07/11/2025 Lab Requisition [facility] - Main Lab [address] [facility] [place] [address] Lalito Sanchez MD [address] [place] [address] Essential (primary) hypertension; Unspecified atrial fibrillation (CMS/HCC [...] of this encounter Plan of Treatment Scheduled Orders Name Type Priority Associated Diagnoses Orde r Schedule Complete blood count Lab Routine Essential (primary) hypertension Unspecified atrial fibrillation (CMS/HCC V24, CMS/HCC V28) Unspecified asthma, uncomplicated Gastro-esophageal reflux disease without esophagitis Ordered: 07/11/2025 Basic metabolic panel Lab Routine Essential (primary) hypertension Unspecified atrial fibrillation (CMS/HCC V24, CMS/HCC V28) Unspecified asthma, uncomplicated Gastro-esophageal reflux disease without esophagitis Ordered: 07/11/2025 documented as of this encounter Visit Diagnoses Diagnosis Essential (primary) hypertension Unspecified essential hypertension Unspecified atrial fibrillation (CMS/HCC V24, CMS/HCC V28) Unspecified asthma, uncomplicated Gastro-esophageal reflux disease without esophagitis documented in this encounter Care Teams Sexual Health Physician Relationship Specialty Start Date End Date Lalito Sanchez MD [address] [place] [address] PCP - General Internal Medicine 06/12/25 documented as of this encounter
--- OUTSIDE RECORDS SUMMARY | 2025-07-12 07:14 | XMS_ITS | Patient Health Record ---
Author Organization [facility] Address [address] [place] [address] Care Team Providers Care Front End Architect Name Role Phone Sarah Arielle Primary Care Provider Unavailabl e Black, Lani Unavailable [phone] Allergies No Known Allergies Reason For Referral [...] Ordered Date Performed Result Body Sit e 60014-IITKTXM NAIL, 6 OR MORE 08/26/2024 N/A 37693-Koknlqpr Plate 08/26/2024 N/A 29736-NMKIILK NAIL, 6 OR MORE 11/25/2024 N/A 55965,S8215-XVJ TENDON SHEATH/LIGAMENT 11/25/2024 N/A 45209-GWQUKZB NAIL, 6 OR MORE 03/03/2025 N/A Encounters Encounter Location Date [facility] [address] [address] 08/26/2024 Lani Black Tinea unguium B35.1 ; Pressure injury of right heel, unstageable L89.610 ; Pain in right toe(s) M79.674 ; Pain in left toe(s) M79.675 and Ingrown nail L60.0 [facility] [address] [address] 11/25/2024 Lani Black Tinea unguium B35.1 ; Bursitis of right foot M77.51 ; Pain in right toe(s) M79.674 ; Pain in left toe(s) M79.675 ; Pain in right foot M79.671 ; Plantar fasciitis of right foot M72.2 and 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 [facility] [address] [place] [address] 03/03/2025 Lani Black Tinea unguium B35.1 ; Bursitis of right foot M77.51 ; Pain in right toe(s) M79.674 ; Pain in left toe(s) M79.675 ; Pain in right foot M79.671 ; Plantar fasciitis of right foot M72.2 and 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 [facility] [address] [address] 06/06/2025 Lani Ricketts Assessments Encounter Date Diagnosis [...] X ray : Foot, right 3V 06/25/2013 84978-MWWWAKB NAIL, 6 OR MORE 06/21/2021 30430-ALLZAHR NAIL, 6 OR MORE 10/11/2021 40683-IMHQXKR NAIL, 6 OR MORE 01/20/2022 87273-TQIZBPI NAIL, 6 OR MORE 04/28/2022 58488-EAMTDUH NAIL, 6 OR MORE 06/01/2020 12466-SLXMJGN NAIL, 6 OR MORE 11/23/2020 03198-VKNAUNO NAIL, 6 OR MORE 03/01/2021 53730-WNUNOCX NAIL, 6 OR MORE 05/06/2024 77444-OGJYIKS NAIL, 6 OR MORE 08/26/2024 19561-SOGWJSZ NAIL, 6 OR MORE 11/25/2024 81624-SPAGUJV NAIL, 6 OR MORE 03/03/2025 85937-IKVECLP NAIL, 6 OR MORE 08/25/2022 64842-QTAHHMV NAIL, 6 OR MORE 12/01/2022 88126-STMMKYO NAIL, 6 OR MORE 03/13/2023 47473-CDPNUKJ NAIL, 6 OR MORE 06/26/2023 97582-DJSSACD NAIL, 6 OR MORE 10/05/2023 98979-GDHUUPD NAIL, 6 OR MORE 01/11/2024 15629-NVRGBDV NAIL, 6 OR MORE 05/12/2014 85493-FSGIZDY NAIL, 6 OR MORE 08/18/2014 74432-GKQKZRC NAIL, 6 OR MORE 12/02/2014 75188-BHAJCXQ NAIL, 6 OR MORE 05/06/2015 91467-BRYMDLG NAIL, 6 OR MORE 09/07/2015 69761-DRUNTQZ NAIL, 6 OR MORE 02/08/2016 67845-LBEUPKS NAIL, 6 OR MORE 06/09/2016 45755-OJSPYEC NAIL, 6 OR MORE 11/02/2016 28268-VFLJUGZ NAIL, 6 OR MORE 03/07/2017 42019-LYKBLRS NAIL, 6 OR MORE 05/15/2017 44574-RCDTAQE NAIL, 6 OR MORE 08/21/2017 34876-VLSZJCE NAIL, 6 OR MORE 11/23/2017 75110-CMMYOFZ NAIL, 6 OR MORE 02/05/2018 87990-MUYYMFX NAIL, 6 OR MORE 05/07/2018 39199-HJBYGPG NAIL, 6 OR MORE 08/20/2018 32469-KBJNPJZ NAIL, 6 OR MORE 06/08/2011 21202-BVSTGRH NAIL, 6 OR MORE 09/07/2011 07873-EVDBCUP NAIL, 6 OR MORE 11/16/2011 26358-GXIOJAS NAIL, 6 OR MORE 02/01/2012 00453-BLBRIHD NAIL, 6 OR MORE 04/11/2012 94534-AMJEBSH NAIL, 6 OR MORE 05/07/2012 15374-IMGGKHA NAIL, 6 OR MORE 07/11/2012 58569-OFBVIHO NAIL, 6 OR MORE 10/10/2012 71834-UYGHLIC NAIL, 6 OR MORE 12/17/2012 11546-SBPRYMK NAIL, 6 OR MORE 04/08/2013 28321-UGAOWGG NAIL, 6 OR MORE 06/25/2013 75413-DFSZHHE NAIL, 6 OR MORE 07/29/2013 87141-NRWVTBJ NAIL, 6 OR MORE 09/24/2013 48913-XTCNPXX NAIL, 6 OR MORE 12/09/2013 43722-CXBOLAB NAIL, 6 OR MORE 02/24/2014 07588-ITHNERB NAIL, 6 OR MORE 11/19/2018 85612-TERCDDQ NAIL, 6 OR MORE 02/25/2019 22628-ZVOSENO NAIL, 6 OR MORE 06/03/2019 62240-EGMGKAM NAIL, 6 OR MORE 08/26/2019 66371-ABMAJWC NAIL, 6 OR MORE 03/04/2020 16463-Biabhhyb Plate 08/20/2018 09159-Wixjwlct Plate 08/26/2024 18542-Iuysfzbc Plate 03/01/2021 64427-Jhefwjzx Plate 06/21/2021 59316- Debride <25 sq cm 08/19/2021 56414- Debride <25 sq cm 10/11/2021 85515- Debride <25 sq cm 08/25/2022 86440- Debride <25 sq cm 06/21/2021 26429- Debride <25 sq cm 05/30/2024 39177- Debride <25 sq cm 12/14/2023 92115- Debride <25 sq cm 06/26/2023 25183- Debride <25 sq cm 03/04/2020 42051- Debride <25 sq cm 06/01/2020 56777 I&D ABSCESS- SIMPLE,SINGLE 024 95134, W9723-HLADE/INJECT, JOINT/BURSA 1 08/25/201228703,F6942-XHR TENDON SHEATH/LIGAMENT 0 11/25/2024 Insurance Providers Payer Name Payer Address Payer Phone Subscriber Number Group Number Insured Name Patient Relationship to Insured Coverage Start Date Coverage End Date Medicare National Govt Svcs Inc [address] [place] [address] [id number] Lainey Floyd Self - patient is the insured 7 [employer] Blue Shield [address] [place] [address] [id number] Lainey Floyd Self - patient is the insured Medical (General) History Medical History History ICD Code chicken pox asthma Surgical History Surgery Date(Month/Year) appendectomy 1957 carpal tunnel release 04/10/2017 Left Knee replacement 02/02 carpal tunnel surgery 01/04 Hospitalization History Reason Date(Month/Year)
--- OUTSIDE RECORDS SUMMARY | 2025-07-12 07:15 | XMS_ITS | Encounter Summary ---
Author Organization [facility] Address [address] [place] [address] Phone Care Team Providers Care Raise Miner Name Role Phone Yareli Lobato CHEMICAL RESEARCH ENGINEER Primary Care Provider + Reason for Referral * Physical Therapy (Routine) - Closed Specialty Diagnoses / Procedures Referred By Stu quijano Referred To Contact Physical Therapy Diagnoses Encounter for rehabilitation System, Provider Not In, [facility] [id number] [place] [address] Phone: tel: Referral ID Status Reason Start Date Expiration Date Visits Re quested Visits Authorized [id number] Closed 10/30/2018 08/13/2019 99 99 Encounter Details Date Type Department Care Team (Latest Contact Info) Description 10/11/2018 Transcribe Orders [facility] [address] [place] [address] Yareli Lobato, CHEMICAL RESEARCH ENGINEER [address] [place] [address] Encounter for rehabilitation (Primary Dx) Social History [...] Diagnoses Orde r Schedule [facility] Outpatient Referral Routine Encounter for rehabilitation Ordered: 10/11/2018 documented as of this encounter Visit Diagnoses Diagnosis Encounter for rehabilitation- Primary documented in this encounter Care Teams Raise Miner Relationship Specialty Start Date End Date Yareli Lobato NP [address] [place] [address] PCP - General Nurse Practitioner 10/11/18 documented as of this encounter Additional Source Comments The information contained in this document represents components of the legal health record. It is not the complete legal health record.[facility]
--- OUTSIDE RECORDS SUMMARY | 2025-07-12 07:15 | XMS_ITS | Clinical Summary ---
Author Organization [facility] Address [address] [place] [address] Phone Care Team Providers Care Scraper Operator Name Role Phone Yareli Lobato NP Primary [...] Department Care Team Description 04/15/2025 Transcribe Orders [facility] Rehabilitation Services [address] [place] [address] [place] [address] Jennifer Kuhn Encounter for rehabilitation (Primary Dx) [...] file Insurance MEDICARE PART A & B [employer] CROSS MEDEX SUPPLEMENT MEDICARE PART A & B [employer]OSS MEDEX SUPPLEMENT MEDICARE PART A & B [employer] CROSS MEDEX SUPPLEMENT MEDICARE PART A & B [employer] MEDEX SUPPLEMENT MEDICARE PART A & B [employer] MEDEX SUPPLEMENT MEDICARE PART A & B [employer] MEDEX SUPPLEMENT MEDICARE PART A & B MEDEX SUPPLEMENT MEDICARE PART A & B [employer] CROSS MEDEX SUPPLEMENT MEDICARE PART A & B [employer] CROSS MEDEX SUPPLEMENT Care Teams Scraper Operator Relationship Specialty Start Date End Date Yareli Lobato NP [address] [place] [address] PCP - General Nurse Practitioner 10/11/18 Additional Source Comments The information contained in this document represents components of the legal health record. It is not the complete legal health record.[facility]
== END 2025-07-09 07:11 | disposition home or self-care (01) ==
LOC: HO.HOSX 07:10
DX: S52.202A Unspecified fracture of shaft of left ulna, initial encounter for closed fracture (principal); S81.811A Laceration without foreign body, right lower leg, initial encounter; S81.012A Laceration without foreign body, left knee, initial encounter; W19.XXXA Unspecified fall, initial encounter
CPT/HCPCS: 73090; 99212

== ENCOUNTER 2025-07-09 13:06 | Outpatient (AMB) | payer MEDICARE, SELFPAY ==
--- OUTSIDE RECORDS SUMMARY | 2021-02-04 10:39 | XMS_ITS | Encounter Summary ---
Author Organization [facility] Address [address] [place] [address] Phone Care Team Providers Care Mail Sorting Supervisor Name Role Phone Yareli Lobato TWX OPERATOR Primary Care Provider + Encounter Details Date Type Department Care Team (Late st Contact Info) Description 02/04/2021 11:39 AM EDT Hospital Encounter [facility] [address] [place] [address] Mia Danielle FNP [address] [place] [phone] [email or web address] Social History Tobacco Use Types Packs/Day [...] reportoriginally created by Onel Powers. Mia Danielle FOOD EQUIPMENT SERVICE TECHNICIAN IMG XR UPPER EXTREMITY Ana l Result documented in this encounter Visit Diagnoses Not on filedocumented in this encounter Care Teams Mail Sorting Supervisor Relationship Specialty Start Date End Date Yareli Lobato NP [address] [place] [phone] PCP - General Nurse Practitioner 10/11/18 documented as of this encounter Additional Source Comments The information contained in this document represents components of the legal health record. It is not the complete legal health record.[facility]
--- OUTSIDE RECORDS SUMMARY | 2021-02-04 10:39 | XMS_ITS | Encounter Summary ---
Author Organization [facility] Address [address] [place] [address] Phone Care Team Providers Care Model And Pattern Supervisor Name Role Phone Yareli Lobato FIXTURE RELAMPER Primary Care Provider + Encounter Details Date Type Department Care Team (Late st Contact Info) Description 02/04/2021 11:39 AM EDT Hospital Encounter [facility] [address] [place] [address] Mia Danielle FNP [address] [place] [phone] JOANNE@[email or web address] Social History Tobacco Use Types Packs/Day [...] reportoriginally created by Onel Powers. Mia Danielle KNITTING MACHINE MECHANIC IMG XR PELVIS Final Resul t documented in this encounter Visit Diagnoses Not on filedocumented in this encounter Care Teams Model And Pattern Supervisor Relationship Specialty Start Date End Date Yareli Lobato NP [address] [place] [phone] PCP - General Nurse Practitioner 10/11/18 documented as of this encounter Additional Source Comments The information contained in this document represents components of the legal health record. It is not the complete legal health record.[facility]
--- NOTE | 2025-07-09 13:28 | MHC.OFFVIS ---
Vital Signs 07/09/25 13:29 Height 5 ft 3 in Weight 170 lb BMI 30.1 Intake Visit Reasons: OV-Left distal ulnar fx 06/06/25-w/xrays Intake Note: Lainey is an 85 year old right hand dominant female who presents today for a Skin Check status post Left Ulnar Fracture & Skin Tear of the Left Forearm, DOI: 06/06/2025. At her last visit, she was advised to continue wearing her thermal molded splint like a cast, only removing for bathing and wound care, for 2 more weeks. She was further advised to continue following up with wound care as needed and to remain at a 2 lb weight limit in left upper extremity. Today, she reports she is doing well. She denies any pain, numbness, or tingling. Allergies gabapentin Allergy (Intermediate, Verified 07/09/25 13:30) Unknown tramadol Allergy (Intermediate, Verified 07/09/25 13:30) Nausea atorvastatin Adverse Reaction (Severe, Verified 07/09/25 13:30) muscle aches simvastatin Adverse Reaction (Severe, Verified 07/09/25 13:30) Muscles Aches HPI HPI OV-Left distal ulnar fx 06/06/25-w/xrays: Details: Lainey is an 85 year old right hand dominant female who presents today for a Skin Check status post Left Ulnar Fracture & Skin Tear of the Left Forearm, DOI: 06/06/2025. At her last visit, she was advised to continue wearing her thermal molded splint like a cast, only removing for bathing and wound care, for 2 more weeks. She was further advised to continue following up with wound care as needed and to remain at a 2 lb weight limit in left upper extremity. Today, she reports she is doing well. She denies any pain, numbness, or tingling. Patient inquires whether or not she has fully healed at this point. [facility] Medical History Rash Bronchiectasis Pseudomonal pneumonia Abnormal chest x-ray Statin intolerance Essential hypertension Atherosclerotic cardiovascular disease PAF (paroxysmal atrial fibrillation) Non-rheumatic aortic stenosis Murmur, heart GERD (gastroesophageal reflux disease) Cough Asthma-COPD overlap syndrome Bronchitis Surgical History History of left knee replacement History of carpal tunnel release Family History Mother Breast cancer Father Heart attack Other Allergies Social History Household Members: Spouse Housing: House Do you presently have visiting nurse or other home services: No Alcohol intake: former Comment: stiffness Patient Tobacco Use Status: Never used Tobacco service: No Review of Systems Const All systems reviewed & are unremarkable except as noted in HPI and below Physical Exam Vital Signs: BMI result Body Mass Index 30.1 Extrem Other: Patient is alert, oriented, and in no acute distress. Neuro: Normal sensation of the tips of all digits of the left hand at this time Vascular: Cap refill brisk Pain: No tenderness to palpation about the skin tear at the level of the fracture of the left ulna ROM: Patient is able to make a closed fist and extend all digits of the left hand fully Skin: Skin tear well healed at this time General: No ecchymosis, erythema, or evidence of infection. Psych: Appears grossly normal Affect normal Attitude cooperative Results Reviewed Results Reviewed: X-rays obtained in the office today and independently reviewed by me, Edgar Brooke PA-C, demonstrate nondisplaced fracture of the right ulnar shaft with evidence of good interval bony healing. Assessment & Plan Assessment & Plan (1) Noninfected skin tear of right lower extremity: Code(s): S81.811A - Laceration without foreign body, right lower leg, initial encounter Category: Medical (2) Fracture of left ulna: Code(s): S52.202A - Unspecified fracture of shaft of left ulna, initial encounter for closed fracture Category: Medical (3) Fall: Code(s): W19.XXXA - Unspecified fall, initial encounter Category: Medical (4) Laceration of skin of left knee without complication: Code(s): S81.012A - Laceration without foreign body, left knee, initial encounter Category: Medical (5) Skin tear of forearm without complication: Code(s): S51.819A - Laceration without foreign body of unspecified forearm, initial encounter Category: Medical Plan 1. Left ulna fracture 2. Skin tear of the left forearm 3. Skin tears of bilateral knees Date of injury 06/06/2025 Patient is educated about this condition Patient is educated about the typical recovery course Thermal molded splint to be worn with daytime activities She patient should remove this splint while at rest to work on early range of motion of the left wrist and for wound care Continue following up with wound care as needed 2 lb weight limit in left upper extremity Follow-up in 4 week with repeat x-rays for skin check, sooner with any acute concerns Orders: Orders XR forearm LT 2V Today S52.209A - Unspecified fracture of shaft of unspecified ulna, initial encounter for closed fracture, S52.90XA - Unspecified fracture of unspecified forearm, initial encounter for closed fracture Coding Level of Care Code Global (27828) Diagnoses Noninfected skin tear of right lower extremity S81.811A Fracture of left ulna S52.202A Fall W19.XXXA Laceration of skin of left knee without complication S81.012A Skin tear of forearm without complication S51.819A
[2025-07-09 13:29] VITALS: BMI 30.1
--- OUTSIDE RECORDS SUMMARY | 2025-07-09 16:13 | XMS_ITS | Encounter Summary ---
Author Organization [facility] Address [address] [place] [id number] Phone Care Team Providers Care Geoscience Professor Name Role Phone Yareli Lobato [employer] Primary Care Provider + Reason for Referral * Physical Therapy (Routine) - Closed Specialty Diagnoses / Procedures Referred By Stu quijano Referred To Contact Physical Therapy Diagnoses Encounter for rehabilitation System, Provider Not In, [facility] [id number] [place] [address] Phone: tel: Referral ID Status Reason Start Date Expiration Date Visits Re quested Visits Authorized [id number] Closed 10/30/2018 08/13/2019 99 99 Encounter Details Date Type Department Care Team (Latest Contact Info) Description 10/11/2018 Transcribe Orders [facility] [address] [place] [address] Yareli Lobato, [employer] [address] [place] [address] Encounter for rehabilitation (Primary Dx) Social History [...] Diagnoses Orde r Schedule Ambulatory referral to [facility] Physical Therapy Outpatient Referral Routine Encounter for rehabilitation Ordered: 10/11/2018 documented as of this encounter Visit Diagnoses Diagnosis Encounter for rehabilitation- Primary documented in this encounter Care Teams Geoscience Professor Relationship Specialty Start Date End Date Yareli Lobato NP [address] [place] [phone] PCP - General Nurse Practitioner 10/11/18 documented as of this encounter Additional Source Comments The information contained in this document represents components of the legal health record. It is not the complete legal health record.[facility]
--- OUTSIDE RECORDS SUMMARY | 2025-07-09 16:13 | XMS_ITS | Clinical Summary ---
Author Organization [facility] Address [address] [facility] [address] [place] [address] Phone Care Team Providers Care Director Electronics Name Role Phone Yareli Lobato NP Primary [...] Department Care Team Description 04/15/2025 Transcribe Orders [facility] [address] [place] [address] [place] [address] Jennifer Kuhn Encounter for rehabilitation (Primary Dx) [...] file Insurance MEDICARE PART A & B [employer] SUPPLEMENT MEDICARE PART A & B [employer] SUPPLEMENT MEDICARE PART A & B [employer] SUPPLEMENT MEDICARE PART A & B [employer] MED[employer] SUPPLEMENT MEDICARE PART A & B [employer] MED[employer] SUPPLEMENT MEDICARE PART A & B [employer] MED[employer] SUPPLEMENT MEDICARE PART A & B MEDEX SUPPLEMENT MEDICARE PART A & B [facility] SUPPLEMENT MEDICARE PART A & B [employer] SUPPLEMENT Care Teams Director Electronics Relationship Specialty Start Date End Date Yareli Lobato NP [address] [place] [address] PCP - General Nurse Practitioner 10/11/18 Additional Source Comments The information contained in this document represents components of the legal health record. It is not the complete legal health record.[facility]
== END 2025-07-09 14:12 | disposition home or self-care (01) ==
LOC: HO.HOS 13:06
DX: S81.811A Laceration without foreign body, right lower leg, initial encounter (principal); S52.202A Unspecified fracture of shaft of left ulna, initial encounter for closed fracture; W19.XXXA Unspecified fall, initial encounter; S81.012A Laceration without foreign body, left knee, initial encounter; S51.819A Laceration without foreign body of unspecified forearm, initial encounter
CPT/HCPCS: 99213

== ENCOUNTER → 2025-07-09 13:09 | Outpatient (BNV) | payer MEDICARE, SELFPAY | PROVIDERS: Visit Provider Radiology Body Imaging | DX: S52.602D Unspecified fracture of lower end of left ulna, subsequent encounter for closed fracture with routine healing (principal) | CPT/HCPCS: 73090 ==

== ENCOUNTER 2025-08-05 08:33 | Outpatient (REF) | payer MEDICARE, SELFPAY ==
--- OUTSIDE RECORDS SUMMARY | 2021-02-04 10:39 | XMS_ITS | Encounter Summary ---
Author Organization [facility] Address [address] [place] [phone] Phone Care Team Providers Care Quality Control Tech Raw Materials Name Role Phone Yareli Lobato CORE CUTTER Primary Care Provider + Encounter Details Date Type Department Care Team (Late st Contact Info) Description 02/04/2021 11:39 AM EDT Hospital Encounter [facility] [address] [place] [phone] Mia Danielle FNP [address] [place] [phone] [email or web address] Social History Tobacco Use Types Packs/Day Years [...] reportoriginally created by Onel Powers. Mia Danielle INSTRUMENT AND ELECTRICAL TECHNICIAN IMG XR UPPER EXTREMITY Ana l Result documented in this encounter Visit Diagnoses Not on filedocumented in this encounter Care Teams Quality Control Tech Raw Materials Relationship Specialty Start Date End Date Yareli Lobato NP [address] [place] [phone] PCP - General Nurse Practitioner 10/11/18 documented as of this encounter Additional Source Comments The information contained in this document represents components of the legal health record. It is not the complete legal health record.[facility]
--- OUTSIDE RECORDS SUMMARY | 2021-02-04 10:39 | XMS_ITS | Encounter Summary ---
Author Organization [facility] Address [address] [place] [address] Phone Care Team Providers Care Taxi Proprietor Name Role Phone Yareli Lobato SENIOR MICROSOFT CONSULTANT Primary Care Provider + Encounter Details Date Type Department Care Team (Late st Contact Info) Description 02/04/2021 11:39 AM EDT Hospital Encounter [facility] [address] [place] [address] Mia Danielle FNP [address] [place] [phone] JOANNE@[email or web address] Social History Tobacco Use Types Packs/Day [...] reportoriginally created by Onel Powers. Mia Danielle THIRD COOK IMG XR PELVIS Final Resul t documented in this encounter Visit Diagnoses Not on filedocumented in this encounter Care Teams Taxi Proprietor Relationship Specialty Start Date End Date Yareli Lobato NP [address] [place] [address] PCP - General Nurse Practitioner 10/11/18 documented as of this encounter Additional Source Comments The information contained in this document represents components of the legal health record. It is not the complete legal health record.[facility]
--- OUTSIDE RECORDS SUMMARY | 2024-05-02 09:30 | XMS_ITS ---
Author Organization [facility] Address [address] [place] [address] Care Team Providers Care Roadmaster Name Role Phone Arielle Smith Primary Care Provider Unavailabl Lani Godoy [phone] Encounters Encounter Location Date Provider Diagnosis [address] [address] 05/02/2024 Lani Ricketts Plan Of Treatment No Information Progress Notes * Lainey MORRELL RDOB:[birth year] (85 yo F)Acc No.[id number]:05/02/2024 Progress Note Patient: Lainey MCNAIR Provider: Chanda Ricketts DPM :1940 A ge:84 Y S ex:Female Date:05/02/2024 Address:[address] [place] [id number] Pcp:Arielle Smith Subjective: * Chief Complaints: * * Medical History: Objective: * Vitals: Assessment: Plan: * Treatment: * Images: * The named appointment provid er may or may not be the originator of this progress note, and it is not deemed complete until electronically signed by the appointment provider. Sign off status: Pending * Provider: Chanda Ricketts DPM Date: 0 05/02/2024 Generated for Printi ng/Fanayg/eTransmitting on: 1 10/06/2024 08:45 AM EST
--- OUTSIDE RECORDS SUMMARY | 2025-06-09 10:00 | XMS_ITS ---
Author Organization [facility] Address [address] [place] [address] Care Team Providers Care Bus Driver Supervisor Name Role Phone Arielle Smith Primary Care Provider Unavailabl Lani Godoy [phone] Encounters Encounter Location Date Provider Diagnosis [address] [address] 06/09/2025 Lani Ricketts Plan Of Treatment No Information Progress Notes * Lainey MORRELL RDOB:[birth year] (85 yo F)Acc No.[id number]:06/09/2025 Progress Note Patient: Lainey MCNAIR Provider: Chanda Ricketts DPM :1940 A ge:85 Y S ex:Female Date:06/09/2025 Address:[address] [place] [id number] Pcp:Arielle Smith Subjective: * Chief Complaints: * * Medical History: Objective: * Vitals: Assessment: Plan: * Treatment: * Images: * The named appointment provid er may or may not be the originator of this progress note, and it is not deemed complete until electronically signed by the appointment provider. Sign off status: Pending * Provider: Chanda Ricketts DPM Date: Generated for Printi ng/Fanayg/eTransmitting on: 10/06/2024 08:45 AM EST
--- NOTE | ~2025-08-05 | XR_ITS ---
EXAMINATION: XR FOREARM 2 VIEWS LEFT HISTORY: S52.90XA - Unspecified fracture of unspecified forearm, initial encounter... COMPARISON: Comparison is made with the prior examination dated 07/09/2025. FINDINGS: AP and lateral views of the left forearm are submitted. The bones are osteopenic. Again seen is a fracture of the distal ulnar diaphysis. There is greater callus formation seen, consistent with healing. The fracture line remains visible. The visualized wrist and elbow joint spaces are preserved. The soft tissues are unremarkable. XR/XR forearm LT 2V IMPRESSION: Osteopenia. Healing fracture of the distal ulnar diaphysis. Electronically signed by: Douglas Montgomery MD 08/05/2025 12:29 PM EST
--- OUTSIDE RECORDS SUMMARY | 2025-08-05 08:45 | XMS_ITS | Encounter Summary ---
Author Organization [facility] Address [address] [place] [address] Care Team Providers Care Projection Printer Name Role Phone Lalito Sanchez MD Primary Care Provider +1- [phone] Encounter Details Date Type Department Care Team (Late st Contact Info) Description 06/21/2025 Lab Requisition [facility] - Main Lab [address] [place] [address] Lalito Sanchez MD [address] [place] [address] Unspecified atrial fibrillation (CMS/HCC V24, CMS/HCC V28); [...] mmol/L LAB CHEMISTRY METHOD 06/23/2025 10:54 AM [facility] Potassium 4.4 3.5 - 5.5 mmol/L LAB CHEMISTRY METHOD 06/23/2025 10:54 AM [facility] Chloride 100 96 - 110 mmol/L LAB CHEMISTRY METHOD 06/23/2025 10:54 AM [facility] CO2 28 21 - 32 mmol/L LAB CHEMISTRY METHOD 06/23/2025 10:54 AM [facility] Anion Gap 7 3 - 11 LAB CHEMISTRY METHOD 06/23/2025 10:54 AM [facility] Glucose 82 70 - 100 mg/dL LAB CHEMISTRY METHOD 06/23/2025 10:54 AM [facility] BUN 16 5 - 25 mg/dL LAB CHEMISTRY METHOD 06/23/2025 10:54 AM [facility] Creatinine 0.57 0.50 - 1.10 mg/dL LAB CHEMISTRY METHOD 06/23/2025 10:54 AM [facility] eGFR 90 >=60 mL/min/1. 73m2 LAB CHEMISTRY METHOD 06/23/2025 10:54 AM [facility] Comment:Calculation based on the Chronic Kidney Disease Epidemiology Collaboration (CKD-EPI) equation refit without adjustment for race. BUN/Creatinine Ratio 28.1 LAB CHEMISTRY METHOD 06/23/2025 10:54 AM [facility] Calcium 8.8 8.5 - 10.5 mg/dL LAB CHEMISTRY METHOD 06/23/2025 10:54 AM [facility] Blood Venous blood specimen / Unknown Venipuncture / Unknown 06/23/2025 6:47 AM EST 06/23/2025 10:12 AM EST Lalito Sanchez MD LAB BLOOD ORDERABLES Final Result [facility] [address] [place] [address], * (ABNORMAL) Complete blood count (06/23/2025 6:47 AM EST) [facility] Signature WBC 8.2 4.8 - 10.8 K/mcL LAB HEMETOLOGY METHOD 06/23/2025 10:33 AM EST [facility] RBC 3.50(L) 3.80 - 4.80 M/mcL LAB HEMETOLOGY METHOD 06/23/2025 10:33 AM [facility] Hemoglobin 10.3(L) 11.5 - 16.0 g/dL LAB HEMETOLOGY METHOD 06/23/2025 10:33 AM [facility] Hematocrit 32.3(L) 35.0 - 47.0 % LAB HEMETOLOGY METHOD 06/23/2025 10:33 AM [facility] MCV 93.4 79.0 - 98.0 FL LAB HEMETOLOGY METHOD 06/23/2025 10:33 AM [facility] MCH 29.8 27.0 - 32.0 pcg LAB HEMETOLOGY METHOD 06/23/2025 10:33 AM [facility] MCHC 31.9(L) 32.0 - 37.0 g/dL LAB HEMETOLOGY METHOD 06/23/2025 10:33 AM [facility] RDW 15.2(H) 11.0 - 15.0 % LAB HEMETOLOGY METHOD 06/23/2025 10:33 AM [facility] Platelets 490(H) 130 - 400 K/mcL LAB HEMETOLOGY METHOD 06/23/2025 10:33 AM [facility] MPV 8.4 7.0 - 11.0 FL LAB HEMETOLOGY METHOD 06/23/2025 10:33 AM [facility] NRBC 0.0 <1.0 % LAB HEMETOLOGY METHOD 06/23/2025 10:33 AM EST [facility] NRBC Absolute 0.00 <0.10 K/mcL LAB HEMETOLOGY METHOD 06/23/2025 10:33 AM EST [facility] Blood Venous blood specimen / Unknown Venipuncture / Unknown 06/23/2025 6:47 AM EST 06/23/2025 10:12 AM EST us Lalito Sanchez MD LAB BLOOD ORDERABLES Final Result [facility] [address] [place] [address], documented in this encounter Visit Diagnoses Diagnosis Unspecified atrial fibrillation (CMS/HCC V24, CMS/HCC V28) Gastro-esophageal reflux disease without esophagitis Unspecified asthma, uncomplicated Essential (primary) hypertension Unspecified essential hypertension documented in this encounter Care Teams Projection Printer Relationship Specialty Start Date End Date Lalito Sanchez MD [address] [place] [address] PCP - General Internal Medicine 06/12/25 documented as of this encounter
--- OUTSIDE RECORDS SUMMARY | 2025-08-05 08:45 | XMS_ITS | Encounter Summary ---
Author Organization [facility] Address [address] [place] [address] Care Team Providers Care Alteration Manager Name Role Phone Lalito Sanchez MD Primary Care Provider +1- [phone] Encounter Details Date Type Department Care Team (Late st Contact Info) Description 06/12/2025 Lab Requisition [facility] - Main Lab [address] [facility] [place] [address] Lalito Sanchez MD [address] [place] [address] Unspecified atrial fibrillation (CMS/HCC V24, CMS/HCC V28); [...] mmol/L LAB CHEMISTRY METHOD 06/12/2025 10:38 AM [facility] Potassium 4.3 3.5 - 5.5 mmol/L LAB CHEMISTRY METHOD 06/12/2025 10:38 AM [facility] Chloride 100 96 - 110 mmol/L LAB CHEMISTRY METHOD 06/12/2025 10:38 AM [facility] CO2 25 21 - 32 mmol/L LAB CHEMISTRY METHOD 06/12/2025 10:38 AM [facility] Anion Gap 8 3 - 11 LAB CHEMISTRY METHOD 06/12/2025 10:38 AM [facility] Glucose 86 70 - 100 mg/dL LAB CHEMISTRY METHOD 06/12/2025 10:38 AM [facility] BUN 17 5 - 25 mg/dL LAB CHEMISTRY METHOD 06/12/2025 10:38 AM [facility] Creatinine 0.53 0.50 - 1.10 mg/dL LAB CHEMISTRY METHOD 06/12/2025 10:38 AM [facility] eGFR 92 >=60 mL/min/1. 73m2 LAB CHEMISTRY METHOD 06/12/2025 10:38 AM [facility] Comment:Calculation based on the Chronic Kidney Disease Epidemiology Collaboration (CKD-EPI) equation refit without adjustment for race. BUN/Creatinine Ratio 32.1 LAB CHEMISTRY METHOD 06/12/2025 10:38 AM [facility] Calcium 8.2(L) 8.5 - 10.5 mg/dL LAB CHEMISTRY METHOD 06/12/2025 10:38 AM [facility] AST (SGOT) 70(H) 10 - 42 unit/L LAB CHEMISTRY METHOD 06/12/2025 10:38 AM [facility] ALT (SGPT) 48 10 - 60 unit/L LAB CHEMISTRY METHOD 06/12/2025 10:38 AM EDT [facility] Alkaline Phosphatase 104 42 - 121 unit/L LAB CHEMISTRY METHOD 06/12/2025 10:38 AM EDT [facility] Total Protein 4.9(L) 6.0 - 8.0 g/dL LAB CHEMISTRY METHOD 06/12/2025 10:38 AM T [facility] Albumin 2.0(L) 3.2 - 5.0 g/dL LAB CHEMISTRY METHOD 06/12/2025 10:38 AM EDT [facility] Total Bilirubin 0.4 0.0 - 1.4 mg/dL LAB CHEMISTRY METHOD 06/12/2025 10:38 AM [facility] Blood Venous blood specimen / Unknown Venipuncture / Unknown 06/12/2025 4:41 AM EDT 06/12/2025 9:23 AM EDT Lalito Sanchez MD LAB BLOOD ORDERABLES Final Result [facility] [address] [place] [address], * (ABNORMAL) Complete blood count (06/12/2025 4:41 AM EDT) WBC 7.1 4.8 - 10.8 K/mcL LAB HEMETOLOGY METHOD 06/12/2025 9:46 AM EDT [facility] RBC 3.20(L) 3.80 - 4.80 M/mcL LAB HEMETOLOGY METHOD 06/12/2025 9:46 AM EDT [facility] Hemoglobin 9.5(L) 11.5 - 16.0 g/dL LAB HEMETOLOGY METHOD 06/12/2025 9:46 AM EDT [facility] Hematocrit 29.1(L) 35.0 - 47.0 % LAB HEMETOLOGY METHOD 06/12/2025 9:46 AM EDT [facility] MCV 91.2 79.0 - 98.0 FL LAB HEMETOLOGY METHOD 06/12/2025 9:46 AM EDT [facility] MCH 29.8 27.0 - 32.0 pcg LAB HEMETOLOGY METHOD 06/12/2025 9:46 AM EDT [facility] MCHC 32.6 32.0 - 37.0 g/dL LAB HEMETOLOGY METHOD 06/12/2025 9:46 AM EDT [facility] RDW 15.9(H) 11.0 - 15.0 % LAB HEMETOLOGY METHOD 06/12/2025 9:46 AM EDT [facility] Platelets 391 130 - 400 K/mcL LAB HEMETOLOGY METHOD 06/12/2025 9:46 AM EDT [facility] MPV 8.2 7.0 - 11.0 FL LAB HEMETOLOGY METHOD 06/12/2025 9:46 AM EDT [facility] NRBC 0.0 <1.0 % LAB HEMETOLOGY METHOD 06/12/2025 9:46 AM EDT [facility] NRBC Absolute 0.00 <0.10 K/mcL LAB HEMETOLOGY METHOD 06/12/2025 9:46 AM EDT [facility] Blood Venous blood specimen / Unknown Venipuncture / Unknown 06/12/2025 4:41 AM EDT 06/12/2025 9:23 AM EDT us Lalito Sanchez MD LAB BLOOD ORDERABLES Final Result [facility] [address] [place] [address], documented in this encounter Visit Diagnoses Diagnosis Unspecified atrial fibrillation (CMS/HCC V24, CMS/HCC V28) Essential (primary) hypertension Unspecified essential hypertension Gastro-esophageal reflux disease without esophagitis Other asthma Repeated falls documented in this encounter Care Teams Alteration Manager Relationship Specialty Start Date End Date Lalito Sanchez MD [address] [place] [address] PCP - General Internal Medicine 06/12/25 documented as of this encounter
--- OUTSIDE RECORDS SUMMARY | 2025-08-05 08:45 | XMS_ITS | Patient Health Record ---
Author Organization [facility] Address [address] [place] [address] Care Team Providers Care Boarder Steam Name Role Phone Sarah Arielle Primary Care Provider Unavailabl e Black, Lani Unavailable [phone] Allergies No Known Allergies Reason For Referral [...] Ordered Date Performed Result Body Sit e 79863-PWXROLD NAIL, 6 OR MORE 08/26/2024 N/A 08087-Pjrubhdt Plate 08/26/2024 N/A 88343-QQEAIMM NAIL, 6 OR MORE 11/25/2024 N/A 85981,P9887-HRB TENDON SHEATH/LIGAMENT 11/25/2024 N/A 10898-SGXBDNT NAIL, 6 OR MORE 03/03/2025 N/A Encounters Encounter [facility] Date [facility] [address] [address] 08/26/2024 Lani Black Tinea unguium B35.1 ; Pressure injury of right heel, unstageable L89.610 ; Pain in right toe(s) M79.674 ; Pain in left toe(s) M79.675 and Ingrown nail L60.0 [facility] [address] [address] 11/25/2024 Lani Black Tinea unguium B35.1 ; Bursitis of right foot M77.51 ; Pain in right toe(s) M79.674 ; Pain in left toe(s) M79.675 ; Pain in right foot M79.671 ; Plantar fasciitis of right foot M72.2 and 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 [facility] [address] [place] [address] 03/03/2025 Lani Black Tinea unguium B35.1 ; Bursitis of right foot M77.51 ; Pain in right toe(s) M79.674 ; Pain in left toe(s) M79.675 ; Pain in right foot M79.671 ; Plantar fasciitis of right foot M72.2 and 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 [facility] [address] [address] 06/06/2025 Lani Ricketts Assessments Encounter Date Diagnosis [...] X ray : Foot, right 3V 06/25/2013 94036-YLENFEI NAIL, 6 OR MORE 06/21/2021 45531-RRLLLQA NAIL, 6 OR MORE 10/11/2021 93430-RFXXQEN NAIL, 6 OR MORE 01/20/2022 28923-XWVGXML NAIL, 6 OR MORE 04/28/2022 87985-CVCRQAY NAIL, 6 OR MORE 06/01/2020 58802-NXVJWTT NAIL, 6 OR MORE 11/23/2020 47590-SOMUUPW NAIL, 6 OR MORE 03/01/2021 08794-GIDEPOF NAIL, 6 OR MORE 05/06/2024 55385-RDXUNEN NAIL, 6 OR MORE 08/26/2024 97752-ZAGPYRC NAIL, 6 OR MORE 11/25/2024 28147-DVMLGRJ NAIL, 6 OR MORE 03/03/2025 65360-ELLTBTA NAIL, 6 OR MORE 08/25/2022 57805-NXZMFPJ NAIL, 6 OR MORE 12/01/2022 45260-OXZLUZX NAIL, 6 OR MORE 03/13/2023 94632-DVOIAFT NAIL, 6 OR MORE 06/26/2023 94485-UZVWUVO NAIL, 6 OR MORE 10/05/2023 07578-LZLKZMK NAIL, 6 OR MORE 01/11/2024 77559-ABFGQPI NAIL, 6 OR MORE 05/12/2014 31612-EHZTLAP NAIL, 6 OR MORE 08/18/2014 02335-CUNOHHL NAIL, 6 OR MORE 12/02/2014 94520-KFKSWCG NAIL, 6 OR MORE 05/06/2015 81975-JAQERRF NAIL, 6 OR MORE 09/07/2015 39336-LOWUQDB NAIL, 6 OR MORE 02/08/2016 66377-FVGOXRZ NAIL, 6 OR MORE 06/09/2016 55663-HDVSZVZ NAIL, 6 OR MORE 11/02/2016 11571-TODRQTN NAIL, 6 OR MORE 03/07/2017 08233-HUFFXLL NAIL, 6 OR MORE 05/15/2017 80892-IFDYKZN NAIL, 6 OR MORE 08/21/2017 58390-XUYHRLX NAIL, 6 OR MORE 11/23/2017 01024-XWIYJTS NAIL, 6 OR MORE 02/05/2018 14574-STXWUNE NAIL, 6 OR MORE 05/07/2018 97864-BETSEAY NAIL, 6 OR MORE 08/20/2018 78885-TSDZOHU NAIL, 6 OR MORE 06/08/2011 26986-UIUJPWD NAIL, 6 OR MORE 09/07/2011 90607-IIAPUAB NAIL, 6 OR MORE 11/16/2011 46631-WJXVREG NAIL, 6 OR MORE 02/01/2012 98581-WZXFCEH NAIL, 6 OR MORE 04/11/2012 61168-BBJRZYI NAIL, 6 OR MORE 05/07/2012 90610-XYJLHWP NAIL, 6 OR MORE 07/11/2012 87907-GVUXOGX NAIL, 6 OR MORE 10/10/2012 46958-GAFFCIA NAIL, 6 OR MORE 12/17/2012 11265-UEVFSEF NAIL, 6 OR MORE 04/08/2013 91985-TJDACDV NAIL, 6 OR MORE 06/25/2013 34420-FJNSAPG NAIL, 6 OR MORE 07/29/2013 22806-ZWFSNZH NAIL, 6 OR MORE 09/24/2013 34600-NSQKAMG NAIL, 6 OR MORE 12/09/2013 88533-DAXSLLA NAIL, 6 OR MORE 02/24/2014 09309-SDTCWNQ NAIL, 6 OR MORE 11/19/2018 34897-RFWVKEB NAIL, 6 OR MORE 02/25/2019 99880-OJCSAPH NAIL, 6 OR MORE 06/03/2019 18465-PLXZWQY NAIL, 6 OR MORE 08/26/2019 34662-NMSEPMR NAIL, 6 OR MORE 03/04/2020 20121-Jxtmswmz Plate 08/20/2018 99326-Ibrtlura Plate 08/26/2024 79344-Cvequlvf Plate 03/01/2021 06096-Xggktkiu Plate 06/21/2021 54817- Debride <25 sq cm 08/19/2021 45673- Debride <25 sq cm 10/11/2021 38849- Debride <25 sq cm 08/25/2022 37420- Debride <25 sq cm 06/21/2021 94746- Debride <25 sq cm 05/30/2024 57127- Debride <25 sq cm 12/14/2023 82138- Debride <25 sq cm 06/26/2023 97943- Debride <25 sq cm 03/04/2020 29331- Debride <25 sq cm 06/01/2020 68259 I&D ABSCESS- SIMPLE,SINGLE 024 52362, X8201-DZMOF/INJECT, JOINT/BURSA 1 08/25/201269875,S8265-JXR TENDON SHEATH/LIGAMENT 0 11/25/2024 Insurance Providers Payer Name Payer Address Payer Phone Subscriber Number Group Number Insured Name Patient Relationship to Insured Coverage Start Date Coverage End Date Medicare National Govt Svcs Inc [address] [place] [address] [id number] Lainey Folyd Self - patient is the insured 7 [employer] Blue Shield [address] [place] [address] [id number] Lainey Floyd Self - patient is the insured Medical (General) History Medical History History ICD Code chicken pox asthma Surgical History Surgery Date(Month/Year) appendectomy 1957 carpal tunnel release 04/10/2017 Left Knee replacement 02/02 carpal tunnel surgery 01/04 Hospitalization History Reason Date(Month/Year)
--- OUTSIDE RECORDS SUMMARY | 2025-08-05 08:46 | XMS_ITS | Encounter Summary ---
Author Organization [facility] Address [address] [place] [address] Care Team Providers Care Cytogenetic Technologist Name Role Phone Lalito Sanchez MD Primary Care Provider +1- [phone] Encounter Details Date Type Department Care Team (Late st Contact Info) Description 07/11/2025 Lab Requisition [facility] - Main Lab [address] [facility] [place] [address] Lalito Sanchez MD [address] [place] [address] Essential (primary) hypertension; Unspecified atrial fibrillation (CMS/HCC [...] Associated Diagnosis Comments COMPLETE BLOOD COUNT Routine 07/14/2025 9:32 AM EST Essential (primary) hypertension Unspecified atrial fibrillation (CMS/HCC V24, CMS/HCC V28) Unspecified asthma, uncomplicated Gastro-esophageal reflux disease without esophagitis BASIC METABOLIC PANEL Routine 07/14/2025 9:32 AM EST Essential (primary) hypertension Unspecified atrial fibrillation (CMS/HCC V24, CMS/HCC V28) Unspecified asthma, uncomplicated Gastro-esophageal reflux disease without esophagitis documented in this encounter Results * (ABNORMAL) Basic metabolic panel (07/14/2025 9:32 AM EST) Sodium 135 133 - 145 mmol/L 07/14/2025 1:12 PM [facility] Potassium 4.2 3.5 - 5.5 mmol/L 07/14/2025 1:12 PM [facility] Chloride 100 96 - 110 mmol/L 07/14/2025 1:12 PM [facility] CO2 25 21 - 32 mmol/L 07/14/2025 1:12 PM [facility] Anion Gap 10 3 - 11 07/14/2025 1:12 PM [facility] Glucose 112(H) 70 - 100 mg/dL 07/14/2025 1:12 PM [facility] BUN 13 5 - 25 mg/dL 07/14/2025 1:12 PM [facility] Creatinine 0.62 0.50 - 1.10 mg/dL 07/14/2025 1:12 PM [facility] eGFR 88 >=60 mL/min/1. 73m2 07/14/2025 1:12 PM [facility] Comment:Calculation based on the Chronic Kidney Disease Epidemiology Collaboration (CKD-EPI) equation refit without adjustment for race. BUN/Creatinine Ratio 21.0 07/14/2025 1:12 PM [facility] Calcium 7.8(L) 8.5 - 10.5 mg/dL 07/14/2025 1:12 PM [facility] Blood Venous blood specimen / Unknown Venipuncture / Unknown 07/14/2025 9:32 AM EST 07/14/2025 10:57 AM EST us Lalito Sanchez MD LAB BLOOD ORDERABLES Final Result [facility] [address] [place] [address], * (ABNORMAL) Complete blood count (07/14/2025 9:32 AM EST) [facility] WBC 8.3 4.8 - 10.8 K/mcL LAB HEMETOLOGY METHOD 07/14/2025 12:33 PM [facility] RBC 3.60(L) 3.80 - 4.80 M/mcL LAB HEMETOLOGY METHOD 07/14/2025 12:33 PM [facility] Hemoglobin 10.7(L) 11.5 - 16.0 g/dL LAB HEMETOLOGY METHOD 07/14/2025 12:33 PM [facility] Hematocrit 33.3(L) 35.0 - 47.0 % LAB HEMETOLOGY METHOD 07/14/2025 12:33 PM [facility] MCV 92.5 79.0 - 98.0 FL LAB HEMETOLOGY METHOD 07/14/2025 12:33 PM [facility] MCH 29.7 27.0 - 32.0 pcg LAB HEMETOLOGY METHOD 07/14/2025 12:33 PM [facility] MCHC 32.1 32.0 - 37.0 g/dL LAB HEMETOLOGY METHOD 07/14/2025 12:33 PM [facility] RDW 15.9(H) 11.0 - 15.0 % LAB HEMETOLOGY METHOD 07/14/2025 12:33 PM [facility] Platelets 337 130 - 400 K/mcL LAB HEMETOLOGY METHOD 07/14/2025 12:33 PM [facility] MPV 8.6 7.0 - 11.0 FL LAB HEMETOLOGY METHOD 07/14/2025 12:33 PM [facility] NRBC 0.0 <1.0 % LAB HEMETOLOGY METHOD 07/14/2025 12:[address] [facility] NRBC Absolute 0.00 <0.10 K/mcL LAB HEMETOLOGY METHOD 07/14/2025 12:[address] [facility] Blood Venous blood specimen / Unknown Venipuncture / Unknown 07/14/2025 9:32 AM EST 07/14/2025 10:57 AM EST us Lalito Sanchez MD LAB BLOOD ORDERABLES Final Result [facility] [address] [place] [address], documented in this encounter Visit Diagnoses Diagnosis Essential (primary) hypertension Unspecified essential hypertension Unspecified atrial fibrillation (CMS/HCC V24, CMS/HCC V28) Unspecified asthma, uncomplicated Gastro-esophageal reflux disease without esophagitis documented in this encounter Care Teams Cytogenetic Technologist Relationship Specialty Start Date End Date Lalito Sanchez MD [address] [place] [id number] PCP - General Internal Medicine 06/12/25 documented as of this encounter
--- OUTSIDE RECORDS SUMMARY | 2025-08-05 08:46 | XMS_ITS | Encounter Summary ---
Author Organization [facility] Address [address] [place] [address] Care Team Providers Care Crepe Sole Scourer Name Role Phone Lalito Sanchez MD Primary Care Provider +1- [phone] Encounter Details Date Type Department Care Team (Late st Contact Info) Description 07/16/2025 Lab Requisition [facility] - Main Lab [address] [facility] [place] [address] Lalito Sanchez MD [address] [place] [address] Unspecified fracture of lower end of left ulna, subsequent encounter for closed fracture with routine healing; Chronic kidney disease, unspecified; Essential (primary) hypertension Social History Tobacco Use [...] Associated Diagnosis Comments COMPLETE BLOOD COUNT Routine 07/16/2025 5:56 AM EST Unspecified fracture of lower end of left ulna, subsequent encounter for closed fracture with routine healing Chronic kidney disease, unspecified Essential (primary) hypertension COMPREHENSIVE METABOLIC PANEL Routine 07/16/2025 5:56 AM EST Unspecified fracture of lower end of left ulna, subsequent encounter for closed fracture with routine healing Chronic kidney disease, unspecified Essential (primary) hypertension documented in this encounter Results * (ABNORMAL) Comprehensive metabolic panel (07/16/2025 5:56 AM EST) Sodium 138 133 - 145 mmol/L 07/16/2025 12:07 PM [facility] Potassium 4.4 3.5 - 5.5 mmol/L 07/16/2025 12:07 PM [facility] Chloride 101 96 - 110 mmol/L 07/16/2025 12:07 PM [facility] CO2 27 21 - 32 mmol/L 07/16/2025 12:07 PM [facility] Anion Gap 10 3 - 11 07/16/2025 12:07 PM [facility] Glucose 76 70 - 100 mg/dL 07/16/2025 12:07 PM [facility] BUN 12 5 - 25 mg/dL 07/16/2025 12:07 PM [facility] Creatinine 0.65 0.50 - 1.10 mg/dL 07/16/2025 12:07 PM [facility] eGFR 87 >=60 mL/min/1. 73m2 07/16/2025 12:07 PM [facility] Comment:Calculation based on the Chronic Kidney Disease Epidemiology Collaboration (CKD-EPI) equation refit without adjustment for race. BUN/Creatinine Ratio 18.5 07/16/2025 12:07 PM [facility] Calcium 8.6 8.5 - 10.5 mg/dL 07/16/2025 12:07 PM [facility] AST (SGOT) 17 10 - 42 unit/L 07/16/2025 12:07 PM [facility] ALT (SGPT) 9(L) 10 - 60 unit/L 07/16/2025 12:07 PM [facility] Alkaline Phosphatase 90 42 - 121 unit/L 07/16/2025 12:07 PM [facility] Total Protein 5.0(L) 6.0 - 8.0 g/dL 07/16/2025 12:07 PM [facility] Albumin 3.0(L) 3.2 - 5.0 g/dL 07/16/2025 12:07 PM [facility] Total Bilirubin 0.2 0.0 - 1.4 mg/dL 07/16/2025 12:07 PM [facility] Blood Venous blood specimen / Unknown Venipuncture / Unknown 07/16/2025 5:56 AM EST 07/16/2025 10:46 AM EST us Lalito Sanchez MD LAB BLOOD ORDERABLES Final Result [facility] [address] [place] [address], [place] [phone] * (ABNORMAL) Complete blood count (07/16/2025 5:56 AM EST) WBC 6.1 4.8 - 10.8 K/mcL LAB HEMETOLOGY METHOD 07/16/2025 11:17 AM [facility] RBC 3.40(L) 3.80 - 4.80 M/[facility] LAB HEMETOLOGY METHOD 07/16/2025 11:17 AM [facility] Hemoglobin 10.1(L) 11.5 - 16.0 g/dL LAB HEMETOLOGY METHOD 07/16/2025 11:17 AM [facility] Hematocrit 31.1(L) 35.0 - 47.0 % LAB HEMETOLOGY METHOD 07/16/2025 11:17 AM [facility] MCV 92.3 79.0 - 98.0 FL LAB HEMETOLOGY METHOD 07/16/2025 11:17 AM [facility] MCH 30.0 27.0 - 32.0 pcg LAB HEMETOLOGY METHOD 07/16/2025 11:17 AM [facility] MCHC 32.5 32.0 - 37.0 g/dL LAB HEMETOLOGY METHOD 07/16/2025 11:17 AM [facility] RDW 15.9(H) 11.0 - 15.0 % LAB HEMETOLOGY METHOD 07/16/2025 11:17 AM [facility] Platelets 342 130 - 400 K/mcL LAB HEMETOLOGY METHOD 07/16/2025 11:17 AM [facility] MPV 8.6 7.0 - 11.0 FL LAB HEMETOLOGY METHOD 07/16/2025 11:17 AM [facility] NRBC 0.0 <1.0 % LAB HEMETOLOGY METHOD 07/16/2025 11:17 AM [facility] NRBC Absolute 0.00 <0.10 K/mcL LAB HEMETOLOGY METHOD 07/16/2025 11:17 AM [facility] Blood Venous blood specimen / Unknown Venipuncture / Unknown 07/16/2025 5:56 AM EST 07/16/2025 10:46 AM EST Lalito Sanchez MD LAB BLOOD ORDERABLES Final Result [facility] [address] [place] [address], documented in this encounter Visit Diagnoses Diagnosis Unspecified fracture of lower end of left ulna, subsequent encounter for closed fracture with routine healing Chronic kidney disease, unspecified Essential (primary) hypertension Unspecified essential hypertension documented in this encounter Care Teams Crepe Sole Scourer Relationship Specialty Start Date End Date Lalito Sanchez MD [address] [place] [address] PCP - General Internal Medicine 06/12/25 documented as of this encounter
--- OUTSIDE RECORDS SUMMARY | 2025-08-05 08:46 | XMS_ITS | Encounter Summary ---
Author Organization [facility] Address [address] [place] [address] Care Team Providers Care Baby Registry Sales Consultant Name Role Phone Lalito Sanchez MD Primary Care Provider +1- [phone] Encounter Details Date Type Department Care Team (Late st Contact Info) Description 07/08/[address] [facility] - Main Lab [address] [facility] [place] [address] Lalito Sanchez MD [address] [place] [address] Elevated white blood cell count, unspecified Social [...] CBC auto differential (07/08/2025 5:32 AM EST) [facility] WBC 12.3(H) 4.8 - 10.8 K/mcL LAB HEMETOLOGY METHOD 07/08/2025 11:59 AM [facility] Comment:This is an appended report. These results have been appended to a previously final verified report. RBC 3.40(L) 3.80 - 4.80 M/mcL LAB HEMETOLOGY METHOD 07/08/2025 11:59 AM [facility] Comment:This is an appended report. These results have been appended to a previously final verified report. Hemoglobin 10.0(L) 11.5 - 16.0 g/dL LAB HEMETOLOGY METHOD 07/08/2025 11:59 AM [facility] Comment:This is an appended report. These results have been appended to a previously final verified report. Hematocrit 31.1(L) 35.0 - 47.0 % LAB HEMETOLOGY METHOD 07/08/2025 11:59 AM [facility] Comment:This is an appended report. These results have been appended to a previously final verified report. MCV 91.5 79.0 - 98.0 FL LAB HEMETOLOGY METHOD 07/08/2025 11:59 AM [facility] Comment:This is an appended report. These results have been appended to a previously final verified report. MCH 29.4 27.0 - 32.0 pcg LAB HEMETOLOGY METHOD 07/08/2025 11:59 AM [facility] Comment:This is an appended report. These results have been appended to a previously final verified report. MCHC 32.2 32.0 - 37.0 g/dL LAB HEMETOLOGY METHOD 07/08/2025 11:59 AM [facility] Comment:This is an appended report. These results have been appended to a previously final verified report. RDW 15.9(H) 11.0 - 15.0 % LAB HEMETOLOGY METHOD 07/08/2025 11:59 AM [facility] Comment:This is an appended report. These results have been appended to a previously final verified report. Platelets 330 130 - 400 K/mcL LAB HEMETOLOGY METHOD 07/08/2025 11:59 AM [facility] Comment:This is an appended report. These results have been appended to a previously final verified report. MPV 8.4 7.0 - 11.0 FL LAB HEMETOLOGY METHOD 07/08/2025 11:59 AM [facility] Comment:This is an appended report. These results have been appended to a previously final verified report. NRBC 0.0 <1.0 % LAB HEMETOLOGY METHOD 07/08/2025 11:59 AM [facility] Comment:This is an appended report. These results have been appended to a previously final verified report. NRBC Absolute 0.00 <0.10 K/mcL LAB HEMETOLOGY METHOD 07/08/2025 11:59 AM [facility] Comment:This is an appended report. These results have been appended to a previously final verified report. Neutrophils Relative 69.0 % LAB HEMETOLOGY METHOD 07/08/2025 11:59 AM [facility] Lymphocytes Relative 18.4 % LAB HEMETOLOGY METHOD 07/08/2025 11:59 AM [facility] Monocytes Relative 10.6 % LAB HEMETOLOGY METHOD 07/08/2025 11:59 AM [facility] Eosinophils Relative 1.3 % LAB HEMETOLOGY METHOD 07/08/2025 11:59 AM [facility] Basophils Relative 0.2 % LAB HEMETOLOGY METHOD 07/08/2025 11:59 AM [facility] Immature Granulocytes Relative 0.5 % LAB HEMETOLOGY METHOD 07/08/2025 11:59 AM [facility] Neutrophils Absolute 8.72(H) 1.50 - 7.00 K/mcL LAB HEMETOLOGY METHOD 07/08/2025 11:59 AM EST [facility] Lymphocytes Absolute 2.33 1.00 - 5.00 K/[facility] LAB HEMETOLOGY METHOD 07/08/2025 11:59 AM EST [facility] Monocytes Absolute 1.34(H) 0.20 - 1.00 K/[facility] LAB HEMETOLOGY METHOD 07/08/2025 11:59 AM EST [facility] Eosinophils Absolute 0.16 0.00 - 0.50 K/[facility] HEMETOLOGY METHOD 07/08/2025 11:59 AM EST [facility] Basophils Absolute 0.02 0.00 - 0.20 K/[facility] HEMETOLOGY METHOD 07/08/2025 11:59 AM [facility] Immature Granulocytes Absolute 0.06(H) 0.00 - 0.03 K/[facility] HEMETOLOGY METHOD 07/08/2025 11:59 AM EST [facility] Blood Venous blood specimen / Unknown Venipuncture / Unknown 07/08/2025 5:32 AM EST 07/08/2025 10:42 AM EST Lalito Sanchez MD LAB BLOOD ORDERABLES Edite d Result - Final [facility] [address] [place] [address], [place] [phone] * Culture blood (07/08/2025 5:32 AM EST) Culture, Blood No growth at 5 days 07/13/2025 12:01 PM EST [facility] Blood Venipuncture / Unknown 07/08/2025 5:32 AM EST 07/08/2025 10:42 AM EST us Lalito Sanchez MD LAB MICROBIOLOGY - GENERAL ORDERABLES Final Result [facility] [address] [place] [address], * (ABNORMAL) Complete blood count (07/08/2025 5:32 AM EST) WBC 12.3(H) 4.8 - 10.8 K/mcL LAB HEMETOLOGY METHOD 07/08/2025 11:58 AM [facility] RBC 3.40(L) 3.80 - 4.80 M/mcL LAB HEMETOLOGY METHOD 07/08/2025 11:58 AM [facility] Hemoglobin 10.0(L) 11.5 - 16.0 g/dL LAB HEMETOLOGY METHOD 07/08/2025 11:58 AM [facility] Hematocrit 31.1(L) 35.0 - 47.0 % LAB HEMETOLOGY METHOD 07/08/2025 11:58 AM [facility] MCV 91.5 79.0 - 98.0 FL LAB HEMETOLOGY METHOD 07/08/2025 11:58 AM [facility] MCH 29.4 27.0 - 32.0 pcg LAB HEMETOLOGY METHOD 07/08/2025 11:58 AM [facility] MCHC 32.2 32.0 - 37.0 g/dL LAB HEMETOLOGY METHOD 07/08/2025 11:58 AM [facility] RDW 15.9(H) 11.0 - 15.0 % LAB HEMETOLOGY METHOD 07/08/2025 11:58 AM [facility] Platelets 330 130 - 400 K/mcL LAB HEMETOLOGY METHOD 07/08/2025 11:58 AM [facility] MPV 8.4 7.0 - 11.0 FL LAB HEMETOLOGY METHOD 07/08/2025 11:58 AM [facility] NRBC 0.0 <1.0 % LAB HEMETOLOGY METHOD 07/08/2025 11:58 AM EST [facility] NRBC Absolute 0.00 <0.10 K/mcL LAB HEMETOLOGY METHOD 07/08/2025 11:58 AM EST [facility] Blood Venous blood specimen / Unknown Venipuncture / Unknown 07/08/2025 5:32 AM EST 07/08/2025 10:42 AM EST us Lalito Sanchez MD LAB BLOOD ORDERABLES Edite d Result - Final [facility] [address] [place] [address], documented in this encounter Visit Diagnoses Diagnosis Elevated white blood cell count, unspecified documented in this encounter Care Teams Baby Registry Sales Consultant Relationship Specialty Start Date End Date Lalito Sanchez MD [address] [place] [id number] PCP - General Internal Medicine 06/12/25 documented as of this encounter
--- OUTSIDE RECORDS SUMMARY | 2025-08-05 08:46 | XMS_ITS | Encounter Summary ---
Author Organization [facility] Address [address] [place] [address] Care Team Providers Care Footwear Stitcher Name Role Phone Lalito Sanchez MD Primary Care Provider +1- [phone] Encounter Details Date Type Department Care Team (Late st Contact Info) Description 07/10/2025 Lab Requisition [facility] - Main Lab [address] [place] [address] Lalito Sanchez MD [address] [place] [address] Altered mental status, unspecified Social History Tobacco [...] Urine No growth 07/11/2025 10:49 AM EST [facility] Urine Urine specimen obtained by clean catch procedure / Unknown Non-blood Collection / Unknown 07/08/2025 1:10 PM EST 07/10/2025 11:10 AM EST Lalito Sanchez MD LAB MICROBIOLOGY - GENERAL ORDERABLES Final Result [facility] [address] [place] [address], documented in this encounter Visit Diagnoses Diagnosis Altered mental status, unspecified documented in this encounter Care Teams Footwear Stitcher Relationship Specialty Start Date End Date Lalito Sanchez MD [address] [place] [address] PCP - General Internal Medicine 06/12/25 documented as of this encounter
--- OUTSIDE RECORDS SUMMARY | 2025-08-05 08:46 | XMS_ITS | Encounter Summary ---
Author Organization [facility] Address [address] [place] [address] Care Team Providers Care Advertising Sales Associate Name Role Phone Lalito Sanchez MD Primary Care Provider +1- [phone] Encounter Details Date Type Department Care Team (Late st Contact Info) Description 07/10/2025 Lab Requisition [facility] - Main Lab [address] [place] [address] Lalito Sanchez MD [address] [place] [address] Other abnormal findings in urine Social History [...] reflex microscopic (07/09/2025 9:00 PM EST) Specific [place] Urine 1.029 1.003 - 1.030 LAB URINALYSIS - AUTOMATED METHOD 07/10/2025 12:14 PM EST [facility] pH, Urine 5.0 5.0 - 8.0 pH LAB URINALYSIS - AUTOMATED METHOD 07/10/2025 12:14 PM [facility] Leukocytes, Urine Small(A) Negative LAB URINALYSIS - AUTOMATED METHOD 07/10/2025 12:14 PM [facility] Nitrite, Urine Negative Negative LAB URINALYSIS - AUTOMATED METHOD 07/10/2025 12:14 PM [facility] Protein, Urine Trace <=Trace mg/dL LAB URINALYSIS - AUTOMATED METHOD 07/10/2025 12:14 PM [facility] Glucose, Urine Negative Negative mg/dL LAB URINALYSIS - AUTOMATED METHOD 07/10/2025 12:14 PM [facility] Ketones, Urine Trace(A) Negative mg/dL LAB URINALYSIS - AUTOMATED METHOD 07/10/2025 12:14 PM [facility] Urobilinogen , Urine 1.0 0.2 - 1.0 mg/dL LAB URINALYSIS - AUTOMATED METHOD 07/10/2025 12:14 PM [facility] Bilirubin, Urine Small(A) Negative LAB URINALYSIS - AUTOMATED METHOD 07/10/2025 12:14 PM [facility] Blood, Urine Negative Negative LAB URINALYSIS - AUTOMATED METHOD 07/10/2025 12:14 PM [facility] RBC, Urine 2 0 - 4 /HPF 07/10/2025 12:14 PM [facility] WBC, Urine 6(H) 0 - 4 /HPF 07/10/2025 12:14 PM [facility] Squamous Epithelial, Urine >100(H) 0 - 60 /LPF 07/10/2025 12:14 PM [facility] Bacteria, Urine Moderate(A) Negative /HPF 07/10/2025 12:14 PM [facility] Urine Urine specimen obtained by clean catch procedure / Unknown Non-blood Collection / Unknown 07/09/2025 9:00 PM EST 07/10/2025 11:20 AM EST us Lalito Sanchez MD LAB URINE ORDERABLES Final Result [facility] [address] [place] [address], documented in this encounter Visit Diagnoses Diagnosis Other abnormal findings in urine documented in this encounter Care Teams Advertising Sales Associate Relationship Specialty Start Date End Date Lalito Sanchez MD [address] [place] [id number] PCP - General Internal Medicine 06/12/25 documented as of this encounter
--- OUTSIDE RECORDS SUMMARY | 2025-08-05 08:46 | XMS_ITS | Encounter Summary ---
Author Organization [facility] Address [address] [place] [address] Care Team Providers Care Wet Chemistry Analyst Name Role Phone Lalito Sanchez MD Primary Care Provider +1- [phone] Encounter Details Date Type Department Care Team (Late st Contact Info) Description 07/04/2025 Lab Requisition [facility] - Main Lab [address] [facility] [place] [address] Lalito Sanchez MD [address] [place] [address] Essential (primary) hypertension; Unspecified atrial fibrillation (CMS/HCC [...] 133 - 145 mmol/L 07/07/2025 1:[address] [facility] Potassium 4.4 3.5 - 5.5 mmol/L 07/07/2025 1:[address] [facility] Chloride 100 96 - 110 mmol/L 07/07/2025 1:[address] [facility] CO2 27 21 - 32 mmol/L 07/07/2025 1:[address] [facility] Anion Gap 9 3 - 11 07/07/2025 1:[address] [facility] Glucose 75 70 - 100 mg/dL 07/07/2025 1:[address] [facility] BUN 20 5 - 25 mg/dL 07/07/2025 1:[address] [facility] Creatinine 0.63 0.50 - 1.10 mg/dL 07/07/2025 1:[address] [facility] eGFR 88 >=60 mL/min/1. 73m2 07/07/2025 1:[address] [facility] Comment:Calculation based on the Chronic Kidney Disease Epidemiology Collaboration (CKD-EPI) equation refit without adjustment for race. BUN/Creatinine Ratio 31.7 07/07/2025 1:[address] [facility] Calcium 8.3(L) 8.5 - 10.5 mg/dL 07/07/2025 1:[address] [facility] Blood Venous blood specimen / Unknown Venipuncture / Unknown 07/07/2025 10:30 AM EST 07/07/2025 11:32 AM EST us Lalito Sanchez MD LAB BLOOD ORDERABLES Final Result [facility] [address] [place] [address], * (ABNORMAL) Complete blood count (07/07/2025 10:30 AM EST) [facility] WBC 14.6(H) 4.8 - 10.8 K/mcL LAB HEMETOLOGY METHOD 07/07/2025 2:[address] [facility] RBC 3.80 3.80 - 4.80 M/mcL LAB HEMETOLOGY METHOD 07/07/2025 2:[address] [facility] Hemoglobin 11.4(L) 11.5 - 16.0 g/dL LAB HEMETOLOGY METHOD 07/07/2025 2:[address] [facility] Hematocrit 34.8(L) 35.0 - 47.0 % LAB HEMETOLOGY METHOD 07/07/2025 2:[address] [facility] MCV 92.6 79.0 - 98.0 FL LAB HEMETOLOGY METHOD 07/07/2025 2:[address] [facility] MCH 30.3 27.0 - 32.0 pcg LAB HEMETOLOGY METHOD 07/07/2025 2:[address] [facility] MCHC 32.8 32.0 - 37.0 g/dL LAB HEMETOLOGY METHOD 07/07/2025 2:[address] [facility] RDW 15.9(H) 11.0 - 15.0 % LAB HEMETOLOGY METHOD 07/07/2025 2:[address] [facility] Platelets 402(H) 130 - 400 K/mcL LAB HEMETOLOGY METHOD 07/07/2025 2:[address] [facility] MPV 8.5 7.0 - 11.0 FL LAB HEMETOLOGY METHOD 07/07/2025 2:[address] [facility] NRBC 0.0 <1.0 % LAB HEMETOLOGY METHOD 07/07/2025 2:03 PM EST [facility] NRBC Absolute 0.00 <0.10 K/mcL LAB HEMETOLOGY METHOD 07/07/2025 2:03 PM EST [facility] Blood Venous blood specimen / Unknown Venipuncture / Unknown 07/07/2025 10:30 AM EST 07/07/2025 11:32 AM EST us Lalito Sanchez MD LAB BLOOD ORDERABLES Final Result [facility] [address] [place] [address], documented in this encounter Visit Diagnoses Diagnosis Essential (primary) hypertension Unspecified essential hypertension Unspecified atrial fibrillation (CMS/HCC V24, CMS/HCC V28) Unspecified asthma, uncomplicated Gastro-esophageal reflux disease without esophagitis documented in this encounter Care Teams Wet Chemistry Analyst Relationship Specialty Start Date End Date Lalito Sanchez MD [address] [place] [id number] PCP - General Internal Medicine 06/12/25 documented as of this encounter
--- OUTSIDE RECORDS SUMMARY | 2025-08-05 08:46 | XMS_ITS | Clinical Summary ---
Author Organization [address] Address [address] [place] [phone] Phone Care Team Providers Care Credit Card Interviewer Name Role Phone Lalito Sanchez MD Primary Care Provider +1- [phone] Encounters Date Type Department Care Team Description 07/29/2025 Lab Requisition [facility] [address] [place] [phone] Lalito Sanchez MD Hypo-osmolality and hyponatremia; Unspecified atrial fibrillation (CMS/HCC V24, CMS/HCC V28); Anemia, unspecified; Chronic kidney disease, stage 4 (severe) (CMS/HCC V24, CMS/HCC V28) 07/19/2025 Lab Requisition [facility] [address] [place] [phone] Lalito Sanchez MD Essential (primary) hypertension; Unspecified atrial fibrillation (CMS/HCC V24, CMS/HCC V28); Unspecified asthma, uncomplicated; Gastro-esophageal reflux disease without esophagitis 07/16/2025 Lab Requisition [facility] [address] [place] [phone] Lalito Sanchez MD Unspecified fracture of lower end of left ulna, subsequent encounter for closed fracture with routine healing; Chronic kidney disease, unspecified; Essential (primary) hypertension 07/11/2025 Lab Requisition [facility] [address] [place] [phone] Lalito Sanchez MD Essential (primary) hypertension; Unspecified atrial fibrillation (CMS/HCC V24, CMS/HCC V28); Unspecified asthma, uncomplicated; Gastro-esophageal reflux disease without esophagitis 07/10/2025 Lab Requisition [facility] [address] [place] [phone] Lalito Sanchez MD Other abnormal findings in urine 07/10/2025 Lab Requisition [facility] [address] [place] [phone] Lalito Sanchez MD Altered mental status, unspecified 07/08/2025 Lab Requisition [facility] [address] [place] [phone] Lalito Sanchez MD Elevated white blood cell count, unspecified 07/08/2025 Lab Requisition [facility] [address] [place] [phone] Lalito Sanchez MD Elevated white blood cell count, unspecified 07/04/2025 Lab Requisition [facility] [address] [place] [phone] Lalito Sanchez MD Essential (primary) hypertension; Unspecified atrial fibrillation (CMS/HCC V24, CMS/HCC V28); Unspecified asthma, uncomplicated; Gastro-esophageal reflux disease without esophagitis 06/28/2025 Lab Requisition [facility] [address] [place] [phone] Lalito Sanchez MD Essential (primary) hypertension; Unspecified atrial fibrillation (CMS/HCC V24, CMS/HCC V28); Unspecified asthma, uncomplicated; Gastro-esophageal reflux disease without esophagitis 06/21/2025 Lab Requisition [facility] [address] [place] [phone] Lalito Sanchez MD Unspecified atrial fibrillation (CMS/HCC V24, CMS/HCC V28); Gastro-esophageal reflux disease without esophagitis; Unspecified asthma, uncomplicated; Essential (primary) hypertension 06/13/2025 Lab Requisition [facility] [address] [facility] [place] [address] Lalito Sanchez MD Unspecified atrial fibrillation (CMS/HCC V24, [facility] V28); Gastro-esophageal reflux disease without esophagitis; Unspecified asthma, uncomplicated; Essential (primary) hypertension 06/12/2025 Lab Requisition [facility] [address] [facility] [place] [address] Lalito Sanchez MD Unspecified atrial fibrillation (CMS/HCC V24, CMS/[facility] V28); Essential (primary) hypertension; Gastro-esophageal reflux [...] on file Sexual Orientation Not on file Plan of Treatment Health Maintenance Due Date [...] 09/13/2023 Depression Screening 08/14/2024 COVID-19 Vaccine ( season) 2025 Influenza Vaccine (#1) 2025 Hypertension/CHF/CAD Annual BMP Blood Test 07/16/2026 07/29/2025, 07/16/2025, 07/14/2025, Additional history exists HIB Vaccines Aged Out [...] Associated Diagnosis Comments BASIC METABOLIC PANEL Routine 07/29/2025 5:39 AM EST Hypo-osmolality and hyponatremia Unspecified atrial fibrillation (CMS/HCC V24, CMS/HCC V28) Anemia, unspecified Chronic kidney disease, stage 4 (severe) (CMS/HCC V24, CMS/HCC V28) COMPLETE BLOOD COUNT Routine 07/29/2025 5:39 AM EST Hypo-osmolality and hyponatremia Unspecified atrial fibrillation (CMS/HCC V24, CMS/HCC V28) Anemia, unspecified Chronic kidney disease, stage 4 (severe) (CMS/HCC V24, CMS/HCC V28) COMPREHENSIVE METABOLIC PANEL Routine 07/16/2025 5:56 AM EST Unspecified fracture of lower end of left ulna, subsequent encounter for closed fracture with routine healing Chronic kidney disease, unspecified Essential (primary) hypertension COMPLETE BLOOD COUNT Routine 07/16/2025 5:56 AM EST Unspecified fracture of lower end of left ulna, subsequent encounter for closed fracture with routine healing Chronic kidney disease, unspecified Essential (primary) hypertension BASIC METABOLIC PANEL Routine 07/14/2025 9:32 AM EST Essential (primary) hypertension Unspecified atrial fibrillation (CMS/HCC V24, CMS/HCC V28) Unspecified asthma, uncomplicated Gastro-esophageal reflux disease without esophagitis COMPLETE BLOOD COUNT Routine 07/14/2025 9:32 AM EST Essential (primary) hypertension Unspecified atrial fibrillation (CMS/HCC V24, CMS/HCC V28) Unspecified asthma, uncomplicated Gastro-esophageal reflux disease without esophagitis URINALYSIS WITH REFLEX MICROSCOPIC Routine 07/09/2025 9:00 [...] Months Results * (ABNORMAL) Complete blood count (07/29/2025 5:39 AM EST) Only the most recent of9 resultswithin the time period is included. WBC 5.2 4.8 - 10.8 K/[facility] HEMETOLOGY METHOD 07/29/2025 10:13 AM [facility] RBC 3.30(L) 3.80 - 4.80 M/mcL LAB HEMETOLOGY METHOD 07/29/2025 10:13 AM [facility] Hemoglobin 10.0(L) 11.5 - 16.0 g/dL LAB HEMETOLOGY METHOD 07/29/2025 10:13 AM [facility] Hematocrit 30.7(L) 35.0 - 47.0 % LAB HEMETOLOGY METHOD 07/29/2025 10:13 AM [facility] MCV 92.2 79.0 - 98.0 FL LAB HEMETOLOGY METHOD 07/29/2025 10:13 AM [facility] MCH 30.0 27.0 - 32.0 pcg LAB HEMETOLOGY METHOD 07/29/2025 10:13 AM [facility] MCHC 32.6 32.0 - 37.0 g/dL LAB HEMETOLOGY METHOD 07/29/2025 10:13 AM [facility] RDW 16.5(H) 11.0 - 15.0 % LAB HEMETOLOGY METHOD 07/29/2025 10:13 AM [facility] Platelets 376 130 - 400 K/mcL LAB HEMETOLOGY METHOD 07/29/2025 10:13 AM [facility] MPV 8.6 7.0 - 11.0 FL LAB HEMETOLOGY METHOD 07/29/2025 10:13 AM [facility] NRBC 0.0 <1.0 % LAB HEMETOLOGY METHOD 07/29/2025 10:13 AM [facility] NRBC Absolute 0.00 <0.10 K/mcL LAB HEMETOLOGY METHOD 07/29/2025 10:13 AM [facility] Blood Venous blood specimen / Unknown Venipuncture / Unknown 07/29/2025 5:39 AM EST 07/29/2025 9:29 AM EST Lalito Sanchez MD LAB BLOOD ORDERABLES Final Result [facility] [address] [place] [address], [place] [phone] * (ABNORMAL) Basic metabolic panel (07/29/2025 5:39 AM EST) Only the most recent of6 resultswithin the time period is included. Sodium 135 133 - 145 mmol/L 07/29/2025 10:29 AM [facility] Potassium 4.5 3.5 - 5.5 mmol/L 07/29/2025 10:29 AM [facility] Chloride 98 96 - 110 mmol/L 07/29/2025 10:29 AM [facility] CO2 29 21 - 32 mmol/L 07/29/2025 10:29 AM [facility] Anion Gap 8 3 - 11 07/29/2025 10:29 AM [facility] Glucose 83 70 - 100 mg/dL 07/29/2025 10:29 AM [facility] BUN 15 5 - 25 mg/dL 07/29/2025 10:29 AM [facility] Creatinine 0.65 0.50 - 1.10 mg/dL 07/29/2025 10:29 AM [facility] eGFR 87 >=60 mL/min/1. 73m2 07/29/2025 10:29 AM [facility] Comment:Calculation based on the Chronic Kidney Disease Epidemiology Collaboration (CKD-EPI) equation refit without adjustment for race. BUN/Creatinine Ratio 23.1 07/29/2025 10:29 AM [facility] Calcium 8.3(L) 8.5 - 10.5 mg/dL 07/29/2025 10:29 AM [facility] Blood Venous blood specimen / Unknown Venipuncture / Unknown 07/29/2025 5:39 AM EST 07/29/2025 9:29 AM EST us Lalito Sanchez MD LAB BLOOD ORDERABLES Final Result [facility] [address] [place] [address], [place] [phone] * (ABNORMAL) Comprehensive metabolic panel (07/16/2025 5:56 AM EST) Only the most recent of2 resultswithin the time period is included. Sodium 138 133 - 145 mmol/L 07/16/2025 12:07 PM [facility] Potassium 4.4 3.5 - 5.5 mmol/L 07/16/2025 12:07 PM [facility] Chloride 101 96 - 110 mmol/L 07/16/2025 12:07 PM [facility] CO2 27 21 - 32 mmol/L 07/16/2025 12:07 PM [facility] Anion Gap 10 3 - 11 07/16/2025 12:07 PM [facility] Glucose 76 70 - 100 mg/dL 07/16/2025 12:07 PM [facility] BUN 12 5 - 25 mg/dL 07/16/2025 12:07 PM [facility] Creatinine 0.65 0.50 - 1.10 mg/dL 07/16/2025 12:07 PM [facility] eGFR 87 >=60 mL/min/1. 73m2 07/16/2025 12:07 PM [facility] Comment:Calculation based on the Chronic Kidney Disease Epidemiology Collaboration (CKD-EPI) equation refit without adjustment for race. BUN/Creatinine Ratio 18.5 07/16/2025 12:07 PM [facility] Calcium 8.6 8.5 - 10.5 mg/dL 07/16/2025 12:07 PM [facility] AST (SGOT) 17 10 - 42 unit/L 07/16/2025 12:07 PM [facility] ALT (SGPT) 9(L) 10 - 60 unit/L 07/16/2025 12:07 PM [facility] Alkaline Phosphatase 90 42 - 121 unit/L 07/16/2025 12:07 PM [facility] Total Protein 5.0(L) 6.0 - 8.0 g/dL 07/16/2025 12:07 PM [facility] Albumin 3.0(L) 3.2 - 5.0 g/dL 07/16/2025 12:07 PM [facility] Total Bilirubin 0.2 0.0 - 1.4 mg/dL 07/16/2025 12:07 PM [facility] Blood Venous blood specimen / Unknown Venipuncture / Unknown 07/16/2025 5:56 AM EST 07/16/2025 10:46 AM EST us Lalito Sanchez MD LAB BLOOD ORDERABLES Final Result [facility] [address] [place] [address], * (ABNORMAL) Urinalysis with reflex microscopic (07/09/2025 9:00 PM EST) Specific [place] Urine 1.029 1.003 - 1.030 LAB URINALYSIS - AUTOMATED METHOD 07/10/2025 12:14 PM [facility] pH, Urine 5.0 5.0 - 8.0 pH LAB URINALYSIS - AUTOMATED METHOD 07/10/2025 12:14 PM [facility] Leukocytes, Urine Small(A) Negative LAB URINALYSIS - AUTOMATED METHOD 07/10/2025 12:14 PM [facility] Nitrite, Urine Negative Negative LAB URINALYSIS - AUTOMATED METHOD 07/10/2025 12:14 PM [facility] Protein, Urine Trace <=Trace mg/dL LAB URINALYSIS - AUTOMATED METHOD 07/10/2025 12:14 PM [facility] Glucose, Urine Negative Negative mg/dL LAB URINALYSIS - AUTOMATED METHOD 07/10/2025 12:14 PM [facility] Ketones, Urine Trace(A) Negative mg/dL LAB URINALYSIS - AUTOMATED METHOD 07/10/2025 12:14 PM [facility] Urobilinogen , Urine 1.0 0.2 - 1.0 mg/dL LAB URINALYSIS - AUTOMATED METHOD 07/10/2025 12:14 PM [facility] Bilirubin, Urine Small(A) Negative LAB URINALYSIS - AUTOMATED METHOD 07/10/2025 12:14 PM [facility] Blood, Urine Negative Negative LAB URINALYSIS - AUTOMATED METHOD 07/10/2025 12:14 PM [facility] RBC, Urine 2 0 - 4 /HPF 07/10/2025 12:14 PM [facility] WBC, Urine 6(H) 0 - 4 /HPF 07/10/2025 12:14 PM [facility] Squamous Epithelial, Urine >100(H) 0 - 60 /LPF 07/10/2025 12:14 PM [facility] Bacteria, Urine Moderate(A) Negative /HPF 07/10/2025 12:14 PM [facility] Urine Urine specimen obtained by clean catch procedure / Unknown Non-blood Collection / Unknown 07/09/2025 9:00 PM EST 07/10/2025 11:20 AM EST us Lalito Sanchez MD LAB URINE ORDERABLES Final Result [facility] [address] [place] [address], [place] [phone] * Culture urine (07/08/2025 1:10 PM EST) Culture, Urine No growth 07/11/2025 10:49 AM [facility] Urine Urine specimen obtained by clean catch procedure / Unknown Non-blood Collection / Unknown 07/08/2025 1:10 PM EST 07/10/2025 11:10 AM EST us Lalito Sanchez MD LAB MICROBIOLOGY - GENERAL ORDERABLES Final Result Performing Organization Address City/[facility]/ZIP Co de Phone Number [facility] [address] [place] [address], [place] [phone] * (ABNORMAL) CBC auto differential (07/08/2025 5:32 AM EST) Pathologist [facility] WBC 12.3(H) 4.8 - 10.8 K/[facility] HEMETOLOGY METHOD 07/08/2025 11:59 AM [facility] Comment:This is an appended report. These results have been appended to a previously final verified report. RBC 3.40(L) 3.80 - 4.80 /[facility] HEMETOLOGY METHOD 07/08/2025 11:59 AM [facility] Comment:This is an appended report. These results have been appended to a previously final verified report. Hemoglobin 10.0(L) 11.5 - 16.0 g/dL LAB HEMETOLOGY METHOD 07/08/2025 11:59 AM [facility] Comment:This is an appended report. These results have been appended to a previously final verified report. Hematocrit 31.1(L) 35.0 - 47.0 % LAB HEMETOLOGY METHOD 07/08/2025 11:59 AM [facility] Comment:This is an appended report. These results have been appended to a previously final verified report. MCV 91.5 79.0 - 98.0 FL LAB HEMETOLOGY METHOD 07/08/2025 11:59 AM [facility] Comment:This is an appended report. These results have been appended to a previously final verified report. MCH 29.4 27.0 - 32.0 pcg LAB HEMETOLOGY METHOD 07/08/2025 11:59 AM [facility] Comment:This is an appended report. These results have been appended to a previously final verified report. MCHC 32.2 32.0 - 37.0 g/dL LAB HEMETOLOGY METHOD 07/08/2025 11:59 AM [facility] Comment:This is an appended report. These results have been appended to a previously final verified report. RDW 15.9(H) 11.0 - 15.0 % LAB HEMETOLOGY METHOD 07/08/2025 11:59 AM [facility] Comment:This is an appended report. These results have been appended to a previously final verified report. Platelets 330 130 - 400 K/mcL LAB HEMETOLOGY METHOD 07/08/2025 11:59 AM [facility] Comment:This is an appended report. These results have been appended to a previously final verified report. MPV 8.4 7.0 - 11.0 FL LAB HEMETOLOGY METHOD 07/08/2025 11:59 AM [facility] Comment:This is an appended report. These results have been appended to a previously final verified report. NRBC 0.0 <1.0 % LAB HEMETOLOGY METHOD 07/08/2025 11:59 AM [facility] Comment:This is an appended report. These results have been appended to a previously final verified report. NRBC Absolute 0.00 <0.10 K/mcL LAB HEMETOLOGY METHOD 07/08/2025 11:59 AM [facility] Comment:This is an appended report. These results have been appended to a previously final verified report. Neutrophils Relative 69.0 % LAB HEMETOLOGY METHOD 07/08/2025 11:59 AM [facility] Lymphocytes Relative 18.4 % LAB HEMETOLOGY METHOD 07/08/2025 11:59 AM [facility] Monocytes Relative 10.6 % LAB HEMETOLOGY METHOD 07/08/2025 11:59 AM [facility] Eosinophils Relative 1.3 % LAB HEMETOLOGY METHOD 07/08/2025 11:59 AM [facility] Basophils Relative 0.2 % LAB HEMETOLOGY METHOD 07/08/2025 11:59 AM [facility] Immature Granulocytes Relative 0.5 % LAB HEMETOLOGY METHOD 07/08/2025 11:59 AM [facility] Neutrophils Absolute 8.72(H) 1.50 - 7.00 K/mcL LAB HEMETOLOGY METHOD 07/08/2025 11:59 AM [facility] Lymphocytes Absolute 2.33 1.00 - 5.00 K/mcL LAB HEMETOLOGY METHOD 07/08/2025 11:59 AM [facility] Monocytes Absolute 1.34(H) 0.20 - 1.00 K/mcL LAB HEMETOLOGY METHOD 07/08/2025 11:59 AM [facility] Eosinophils Absolute 0.16 0.00 - 0.50 K/mcL LAB HEMETOLOGY METHOD 07/08/2025 11:59 AM [facility] Basophils Absolute 0.02 0.00 - 0.20 K/mcL LAB HEMETOLOGY METHOD 07/08/2025 11:59 AM [facility] Immature Granulocytes Absolute 0.06(H) 0.00 - 0.03 K/mcL LAB HEMETOLOGY METHOD 07/08/2025 11:59 AM EST [facility] Blood Venous blood specimen / Unknown Venipuncture / Unknown 07/08/2025 5:32 AM EST 07/08/2025 10:42 AM EST Lalito Sanchez MD LAB BLOOD ORDERABLES Edite d Result - Final Performing Organization Address City/[facility]/ZIP Co de Phone Number [facility] [address] [place] [address], [place] [phone] * Culture blood (07/08/2025 5:32 AM EST) Only the most recent of2 resultswithin the time period is included. Culture, Blood No growth at 5 days 07/13/2025 12:01 PM EST [facility] Blood 07/08/2025 5:32 AM EST 07/08/2025 10:44 AM EST Lalito Sanchez MD LAB MICROBIOLOGY - GENERAL ORDERABLES Final Result Performing Organization Address [facility] Co de Phone Number [facility] [address] [place] [address], [place] [phone] from Last 3 Months Insurance MEDICARE [facility] Care Teams Credit Card Interviewer Relationship Specialty Start Date End Date Lalito Sanchez MD [address] [place] [phone] PCP - General Internal Medicine 06/12/25
--- OUTSIDE RECORDS SUMMARY | 2025-08-05 08:46 | XMS_ITS | Encounter Summary ---
Author Organization [facility] Address [address] [place] [phone] Phone Care Team Providers Care Marquetry Worker Name Role Phone Yareli Lobato CLOUD ARCHITECT Primary Care Provider + Reason for Referral * Physical Therapy (Routine) - Closed Specialty Diagnoses / Procedures Referred By Stu quijano Referred To Contact Physical Therapy Diagnoses Encounter for rehabilitation System, Provider Not In, [facility] [id number] [place] [phone] Phone: tel: Referral ID Status Reason Start Date Expiration Date Visits Re quested Visits Authorized [id number] Closed 10/30/2018 08/13/2019 99 [phone] Encounter Details Date Type Department Care Team (Latest Contact Info) Description 10/11/2018 Transcribe Orders [facility] [address] [place] [id number] Yareli Lobato, CLOUD ARCHITECT [address] [place] [address] Encounter for rehabilitation (Primary Dx) Social History [...] Diagnoses Orde r Schedule Ambulatory referral to [facility] Physical Therapy Outpatient Referral Routine Encounter for rehabilitation Ordered: 10/11/2018 documented as of this encounter Visit Diagnoses Diagnosis Encounter for rehabilitation- Primary documented in this encounter Care Teams Marquetry Worker Relationship Specialty Start Date End Date Yareli Lobato NP [address] [place] [phone] PCP - General Nurse Practitioner 10/11/18 documented as of this encounter Additional Source Comments The information contained in this document represents components of the legal health record. It is not the complete legal health record.[facility]
--- OUTSIDE RECORDS SUMMARY | 2025-08-05 08:46 | XMS_ITS | Encounter Summary ---
Author Organization [facility] Address [address] [place] [address] Care Team Providers Care [employer] Professional Name Role Phone Lalito Sanchez MD Primary Care Provider +1- [phone] Encounter Details Date Type Department Care Team (Late st Contact Info) Description 07/29/2025 Lab Requisition [facility] - Main Lab [address] [facility] [place] [address] Lalito Sanchez MD [address] [place] [address] Hypo-osmolality and hyponatremia; Unspecified atrial fibrillation (CMS/HCC V24, CMS/HCC V28); Anemia, unspecified; Chronic kidney disease, stage 4 (severe) (CMS/HCC V24, CMS/HCC V28) Social History Tobacco Use Types Packs/Day Years [...] Associated Diagnosis Comments COMPLETE BLOOD COUNT Routine 07/29/2025 5:39 AM EST Hypo-osmolality and hyponatremia Unspecified atrial fibrillation (CMS/HCC V24, CMS/HCC V28) Anemia, unspecified Chronic kidney disease, stage 4 (severe) (CMS/HCC V24, CMS/HCC V28) BASIC METABOLIC PANEL Routine 07/29/2025 5:39 AM EST Hypo-osmolality and hyponatremia Unspecified atrial fibrillation (CMS/HCC V24, CMS/HCC V28) Anemia, unspecified Chronic kidney disease, stage 4 (severe) ([facility] V[facility], [facility] V28) documented in this encounter Results * (ABNORMAL) Basic metabolic panel (07/29/2025 5:39 AM EST) Sodium 135 133 - 145 mmol/L 07/29/2025 10:29 AM [facility] Potassium 4.5 3.5 - 5.5 mmol/L 07/29/2025 10:29 AM [facility] Chloride 98 96 - 110 mmol/L 07/29/2025 10:29 AM [facility] CO2 29 21 - 32 mmol/L 07/29/2025 10:29 AM [facility] Anion Gap 8 3 - 11 07/29/2025 10:29 AM [facility] Glucose 83 70 - 100 mg/dL 07/29/2025 10:29 AM [facility] BUN 15 5 - 25 mg/dL 07/29/2025 10:29 AM [facility] Creatinine 0.65 0.50 - 1.10 mg/dL 07/29/2025 10:29 AM [facility] eGFR 87 >=60 mL/min/1. 73m2 07/29/2025 10:29 AM [facility] Comment:Calculation based on the Chronic Kidney Disease Epidemiology Collaboration (CKD-EPI) equation refit without adjustment for race. BUN/Creatinine Ratio 23.1 07/29/2025 10:29 AM [facility] Calcium 8.3(L) 8.5 - 10.5 mg/dL 07/29/2025 10:29 AM [facility] Blood Venous blood specimen / Unknown Venipuncture / Unknown 07/29/2025 5:39 AM EST 07/29/2025 9:29 AM EST Lalito Sanchez MD LAB BLOOD ORDERABLES Final Result [facility] [address] [place] [address], * (ABNORMAL) Complete blood count (07/29/2025 5:39 AM EST) WBC 5.2 4.8 - 10.8 K/mcL LAB HEMETOLOGY METHOD 07/29/2025 10:13 AM [facility] RBC 3.30(L) 3.80 - 4.80 M/mcL LAB HEMETOLOGY METHOD 07/29/2025 10:13 AM [facility] Hemoglobin 10.0(L) 11.5 - 16.0 g/dL LAB HEMETOLOGY METHOD 07/29/2025 10:13 AM [facility] Hematocrit 30.7(L) 35.0 - 47.0 % LAB HEMETOLOGY METHOD 07/29/2025 10:13 AM [facility] MCV 92.2 79.0 - 98.0 FL LAB HEMETOLOGY METHOD 07/29/2025 10:13 AM [facility] MCH 30.0 27.0 - 32.0 pcg LAB HEMETOLOGY METHOD 07/29/2025 10:13 AM [facility] MCHC 32.6 32.0 - 37.0 g/dL LAB HEMETOLOGY METHOD 07/29/2025 10:13 AM [facility] RDW 16.5(H) 11.0 - 15.0 % LAB HEMETOLOGY METHOD 07/29/2025 10:13 AM [facility] Platelets 376 130 - 400 K/mcL LAB HEMETOLOGY METHOD 07/29/2025 10:13 AM [facility] MPV 8.6 7.0 - 11.0 FL LAB HEMETOLOGY METHOD 07/29/2025 10:13 AM EST [facility] NRBC 0.0 <1.0 % LAB HEMETOLOGY METHOD 07/29/2025 10:13 AM EST [facility] NRBC Absolute 0.00 <0.10 K/mcL LAB HEMETOLOGY METHOD 07/29/2025 10:13 AM EST [facility] Blood Venous blood specimen / Unknown Venipuncture / Unknown 07/29/2025 5:39 AM EST 07/29/2025 9:29 AM EST us Lalito Sanchez MD LAB BLOOD ORDERABLES Final Result [facility] [address] [place] [address], documented in this encounter Visit Diagnoses Diagnosis Hypo-osmolality and hyponatremia Unspecified atrial fibrillation (CMS/HCC V24, CMS/HCC V28) Anemia, unspecified Chronic kidney disease, stage 4 (severe) (CMS/HCC V24, CMS/HCC V28) documented in this encounter Care Teams [employer] Professional Relationship Specialty Start Date End Date Lalito Sanchez MD [address] [place] [id number] PCP - General Internal Medicine 06/12/25 documented as of this encounter
--- OUTSIDE RECORDS SUMMARY | 2025-08-05 08:46 | XMS_ITS | Encounter Summary ---
Author Organization [facility] Address [address] [place] [address] Care Team Providers Care Line Assigner Name Role Phone Lalito Sanchez MD Primary Care Provider +1- [phone] Encounter Details Date Type Department Care Team (Late st Contact Info) Description 06/28/[address] [facility] - Main Lab [address] [facility] [place] [address] Lalito Sanchez MD [address] [place] [address] Essential (primary) hypertension; Unspecified atrial fibrillation (CMS/HCC [...] mmol/L LAB CHEMISTRY METHOD 06/30/2025 1:13 PM [facility] Potassium 4.1 3.5 - 5.5 mmol/L LAB CHEMISTRY METHOD 06/30/2025 1:13 PM [facility] Chloride 104 96 - 110 mmol/L LAB CHEMISTRY METHOD 06/30/2025 1:13 PM [facility] CO2 27 21 - 32 mmol/L LAB CHEMISTRY METHOD 06/30/2025 1:13 PM [facility] Anion Gap 6 3 - 11 LAB CHEMISTRY METHOD 06/30/2025 1:13 PM [facility] Glucose 79 70 - 100 mg/dL LAB CHEMISTRY METHOD 06/30/2025 1:13 PM [facility] BUN 15 5 - 25 mg/dL LAB CHEMISTRY METHOD 06/30/2025 1:13 PM [facility] Creatinine 0.55 0.50 - 1.10 mg/dL LAB CHEMISTRY METHOD 06/30/2025 1:13 PM [facility] eGFR 91 >=60 mL/min/1. 73m2 LAB CHEMISTRY METHOD 06/30/2025 1:13 PM [facility] Comment:Calculation based on the Chronic Kidney Disease Epidemiology Collaboration (CKD-EPI) equation refit without adjustment for race. BUN/Creatinine Ratio 27.3 LAB CHEMISTRY METHOD 06/30/2025 1:13 PM [facility] Calcium 8.8 8.5 - 10.5 mg/dL LAB CHEMISTRY METHOD 06/30/2025 1:13 PM [facility] Blood Venous blood specimen / Unknown Venipuncture / Unknown 06/30/2025 6:50 AM EST 06/30/2025 11:10 AM EST us Lalito Sanchez MD LAB BLOOD ORDERABLES Final Result [facility] [address] [place] [address], * (ABNORMAL) Complete blood count (06/30/2025 6:50 AM EST) [facility] Signature WBC 6.9 4.8 - 10.8 K/mcL LAB HEMETOLOGY METHOD 06/30/2025 11:53 AM EST [facility] RBC 3.50(L) 3.80 - 4.80 M/mcL LAB HEMETOLOGY METHOD 06/30/2025 11:53 AM [facility] Hemoglobin 10.3(L) 11.5 - 16.0 g/dL LAB HEMETOLOGY METHOD 06/30/2025 11:53 AM [facility] Hematocrit 31.8(L) 35.0 - 47.0 % LAB HEMETOLOGY METHOD 06/30/2025 11:53 AM [facility] MCV 91.6 79.0 - 98.0 FL LAB HEMETOLOGY METHOD 06/30/2025 11:53 AM [facility] MCH 29.7 27.0 - 32.0 pcg LAB HEMETOLOGY METHOD 06/30/2025 11:53 AM [facility] MCHC 32.4 32.0 - 37.0 g/dL LAB HEMETOLOGY METHOD 06/30/2025 11:53 AM [facility] RDW 15.7(H) 11.0 - 15.0 % LAB HEMETOLOGY METHOD 06/30/2025 11:53 AM [facility] Platelets 414(H) 130 - 400 K/mcL LAB HEMETOLOGY METHOD 06/30/2025 11:53 AM [facility] MPV 8.5 7.0 - 11.0 FL LAB HEMETOLOGY METHOD 06/30/2025 11:53 AM [facility] NRBC 0.0 <1.0 % LAB HEMETOLOGY METHOD 06/30/2025 11:53 AM EST [facility] NRBC Absolute 0.00 <0.10 K/mcL LAB HEMETOLOGY METHOD 06/30/2025 11:53 AM EST [facility] Blood Venous blood specimen / Unknown Venipuncture / Unknown 06/30/2025 6:50 AM EST 06/30/2025 11:10 AM EST us Lalito Sanchez MD LAB BLOOD ORDERABLES Final Result [facility] [address] [place] [address], documented in this encounter Visit Diagnoses Diagnosis Essential (primary) hypertension Unspecified essential hypertension Unspecified atrial fibrillation (CMS/HCC V24, CMS/HCC V28) Unspecified asthma, uncomplicated Gastro-esophageal reflux disease without esophagitis documented in this encounter Care Teams Line Assigner Relationship Specialty Start Date End Date Lalito Sanchez MD [address] [place] [id number] PCP - General Internal Medicine 06/12/25 documented as of this encounter
--- OUTSIDE RECORDS SUMMARY | 2025-08-05 08:46 | XMS_ITS | Encounter Summary ---
Author Organization [facility] Address [address] [place] [address] Care Team Providers Care Mailmaster Name Role Phone Lalito Sanchez MD Primary Care Provider +1- [phone] Encounter Details Date Type Department Care Team (Late st Contact Info) Description 07/19/2025 Lab Requisition [facility] - Main Lab [address] [facility] [address] Lalito Sanchez MD [address] [place], [place] [id number] Essential (primary) hypertension; Unspecified atrial fibrillation (CMS/HCC [...] on file documented as of this encounter Visit Diagnoses Diagnosis Essential (primary) hypertension Unspecified essential hypertension Unspecified atrial fibrillation (CMS/HCC V24, CMS/HCC V28) Unspecified asthma, uncomplicated Gastro-esophageal reflux disease without esophagitis documented in this encounter Care Teams Mailmaster Relationship Specialty Start Date End Date Lalito Sanchez MD [address] [place] [address] PCP - General Internal Medicine 06/12/25 documented as of this encounter
--- OUTSIDE RECORDS SUMMARY | 2025-08-05 08:46 | XMS_ITS | Encounter Summary ---
Author Organization [facility] Address [address] [place] [address] Care Team Providers Care Microsoft Systems Engineer Name Role Phone Lalito Sanchez MD Primary Care Provider +1- [phone] Encounter Details Date Type Department Care Team (Late st Contact Info) Description 06/13/2025 Lab Requisition [facility] - Main Lab [address] [facility] [place] [address] Lalito Sanchez MD [address] [place] [address] Unspecified atrial fibrillation (CMS/HCC V24, CMS/HCC V28); [...] mmol/L LAB CHEMISTRY METHOD 06/16/2025 2:[address] [facility] Potassium 4.3 3.5 - 5.5 mmol/L LAB CHEMISTRY METHOD 06/16/2025 2:[address] [facility] Chloride 98 96 - 110 mmol/L LAB CHEMISTRY METHOD 06/16/2025 2:[address] [facility] CO2 27 21 - 32 mmol/L LAB CHEMISTRY METHOD 06/16/2025 2:[address] [facility] Anion Gap 8 3 - 11 LAB CHEMISTRY METHOD 06/16/2025 2:[address] [facility] Glucose 82 70 - 100 mg/dL LAB CHEMISTRY METHOD 06/16/2025 2:[address] [facility] BUN 15 5 - 25 mg/dL LAB CHEMISTRY METHOD 06/16/2025 2:[address] [facility] Creatinine 0.50 0.50 - 1.10 mg/dL LAB CHEMISTRY METHOD 06/16/2025 2:[address] [facility] eGFR 93 >=60 mL/min/1. 73m2 LAB CHEMISTRY METHOD 06/16/2025 2:[address] [facility] Comment:Calculation based on the Chronic Kidney Disease Epidemiology Collaboration (CKD-EPI) equation refit without adjustment for race. BUN/Creatinine Ratio 30.0 LAB CHEMISTRY METHOD 06/16/2025 2:[address] [facility] Calcium 9.0 8.5 - 10.5 mg/dL LAB CHEMISTRY METHOD 06/16/2025 2:[address] [facility] Blood Venous blood specimen / Unknown Venipuncture / Unknown 06/16/2025 8:29 AM EST 06/16/2025 11:17 AM EST us Lalito Sanchez MD LAB BLOOD ORDERABLES Final Result [facility] [address] [place] [address], * (ABNORMAL) Complete blood count (06/16/2025 8:29 AM EST) [facility] Signature WBC 9.3 4.8 - 10.8 K/mcL LAB HEMETOLOGY METHOD 06/16/2025 1:55 PM EST [facility] RBC 3.80 3.80 - 4.80 M/mcL LAB HEMETOLOGY METHOD 06/16/2025 1:55 PM EST [facility] Hemoglobin 11.0(L) 11.5 - 16.0 g/dL LAB HEMETOLOGY METHOD 06/16/2025 1:[address] [facility] Hematocrit 35.3 35.0 - 47.0 % LAB HEMETOLOGY METHOD 06/16/2025 1:55 PM EST [facility] MCV 92.4 79.0 - 98.0 FL LAB HEMETOLOGY METHOD 06/16/2025 1:55 PM EST [facility] MCH 28.8 27.0 - 32.0 pcg LAB HEMETOLOGY METHOD 06/16/2025 1:55 PM EST [facility] MCHC 31.2(L) 32.0 - 37.0 g/dL LAB HEMETOLOGY METHOD 06/16/2025 1:55 PM EST [facility] RDW 15.2(H) 11.0 - 15.0 % LAB HEMETOLOGY METHOD 06/16/2025 1:55 PM EST [facility] Platelets 544(H) 130 - 400 K/mcL LAB HEMETOLOGY METHOD 06/16/2025 1:55 PM EST [facility] MPV 8.2 7.0 - 11.0 FL LAB HEMETOLOGY METHOD 06/16/2025 1:55 PM EST [facility] NRBC 0.0 <1.0 % LAB HEMETOLOGY METHOD 06/16/2025 1:55 PM EST [facility] NRBC Absolute 0.00 <0.10 K/mcL LAB HEMETOLOGY METHOD 06/16/2025 1:55 PM EST [facility] Blood Venous blood specimen / Unknown Venipuncture / Unknown 06/16/2025 8:29 AM EST 06/16/2025 11:17 AM EST us Lalito Sanchez MD LAB BLOOD ORDERABLES Final Result [facility] [address] [place] [address], documented in this encounter Visit Diagnoses Diagnosis Unspecified atrial fibrillation (CMS/HCC V24, CMS/HCC V28) Gastro-esophageal reflux disease without esophagitis Unspecified asthma, uncomplicated Essential (primary) hypertension Unspecified essential hypertension documented in this encounter Care Teams Microsoft Systems Engineer Relationship Specialty Start Date End Date Lalito Sanchez MD [address] [place] [address] PCP - General Internal Medicine 06/12/25 documented as of this encounter
--- OUTSIDE RECORDS SUMMARY | 2025-08-05 08:46 | XMS_ITS | Encounter Summary ---
Author Organization [facility] Address [address] [place] [address] Care Team Providers Care Reception Name Role Phone Lalito Sanchez MD Primary Care Provider +1- [phone] Encounter Details Date Type Department Care Team (Late st Contact Info) Description 07/08/2025 Lab Requisition [facility] - Main Lab [address] [place] [address] Lalito Sanchez MD [address] [place] [address] Elevated white blood cell count, unspecified Social [...] documented in this encounter Results * Culture blood (07/08/2025 5:32 AM EST) Culture, Blood No growth at 5 days 07/13/2025 12:01 PM EST [facility] Blood 07/08/2025 5:32 AM EST 07/08/2025 10:44 AM EST us Lalito Sanchez MD LAB MICROBIOLOGY - GENERAL ORDERABLES Final Result [facility] [address] [place] [address], documented in this encounter Visit Diagnoses Diagnosis Elevated white blood cell count, unspecified documented in this encounter Care Teams Reception Relationship Specialty Start Date End Date Lalito Sanchez MD [address] [place] [address] PCP - General Internal Medicine 06/12/25 documented as of this encounter
--- OUTSIDE RECORDS SUMMARY | 2025-08-05 08:46 | XMS_ITS | Clinical Summary ---
Author Organization [facility] Address [address] [facility] [address] [place] [address] Phone Care Team Providers Care Final Inspector And Tester Name Role Phone Yareli Lobato NP Primary [...] hyperlipidemia 10/22/2019 Other asthma 10/22/2019 Osteoarthritis 10/22/2019 Social History Tobacco Use Types Packs/Day Years [...] file Insurance MEDICARE PART A & B Member Subscriber Plan / Payer (Ef fective 2007-Present) Name:Lainey Floyd Member ID:[id number] Relation to Subscriber:Self Name:Lainey Floyd Subscriber ID:[id number] Payer ID:[id number] Group ID:Not on file Type:Medicare Address: [facility] [employer] [facility]. [address] [facility] [place] [address] [facility] [employer] SUPPLEMENT MEDICARE PART A & B [facility] MED[employer] SUPPLEMENT MEDICARE PART A & B [employer] SUPPLEMENT MEDICARE PART A & B [employer] SUPPLEMENT MEDICARE PART A & B [employer] SUPPLEMENT MEDICARE PART A & B [employer] SUPPLEMENT MEDICARE PART A & B [employer] SUPPLEMENT MEDICARE PART A & B [employer] MED[employer] SUPPLEMENT MEDICARE PART A & B [facility] MED[employer] SUPPLEMENT Care Teams Final Inspector And Tester Relationship Specialty Start Date End Date Yareli Lobato NP [address] [place] [id number] PCP - General Nurse Practitioner 10/11/18 Additional Source Comments The information contained in this document represents components of the legal health record. It is not the complete legal health record.[facility]
== END 2025-08-05 08:34 | disposition home or self-care (01) ==
LOC: HO.HOSX 08:33
DX: S52.202D Unspecified fracture of shaft of left ulna, subsequent encounter for closed fracture with routine healing (principal); S81.811D Laceration without foreign body, right lower leg, subsequent encounter; S81.012D Laceration without foreign body, left knee, subsequent encounter; S43.109D Unspecified dislocation of unspecified acromioclavicular joint, subsequent encounter; W19.XXXD Unspecified fall, subsequent encounter
CPT/HCPCS: 73090

== ENCOUNTER 2025-08-05 11:20 | Outpatient (AMB) | payer MEDICARE, SELFPAY ==
--- NOTE | 2025-08-05 11:38 | A.OFFVIS_ITS ---
Vital Signs 08/05/25 11:49 Height 5 ft 3 in Weight 170 lb BMI 30.1 Intake Visit Reasons: OV-Left distal ulnar fx 06/06/25-w/xrays Intake Note: Lainey is an 85 year old right hand dominant female who presents today for a Skin Check status post Left Ulnar Fracture & Skin Tear of the Left Forearm, DOI: 06/06/2025. Patient in a thermal molded splint worn with daytime activities. 2 lb weight limit. Patient reports ongoing swelling in her hand. She was seen by OT yesterday and was provided with at home exercises. Patient also complains of ongoing shoulder pain since her fall. States that her pain is located just below her shoulder. States performing the at home hand exercises aggravates her shoulder pain. Allergies gabapentin Allergy (Intermediate, Verified 08/05/25 11:49) Unknown tramadol Allergy (Intermediate, Verified 08/05/25 11:49) Nausea atorvastatin Adverse Reaction (Severe, Verified 08/05/25 11:49) muscle aches simvastatin Adverse Reaction (Severe, Verified 08/05/25 11:49) Muscles Aches HPI HPI OV-Left distal ulnar fx 06/06/25-w/xrays: Details: Lainey is an 85 year old right hand dominant female who presents today for a Skin Check status post Left Ulnar Fracture & Skin Tear of the Left Forearm, DOI: 06/06/2025. Patient in a thermal molded splint worn with daytime activities. 2 lb weight limit. Patient reports ongoing swelling in her hand. She was seen by OT yesterday and was provided with at home exercises. Patient also complains of ongoing shoulder pain since her fall. States that her pain is located just below her shoulder. Patient was told that she had a mild AC joint separation of the shoulder, and that there is no acute intervention indicated for this, but she is wondering what she can do help with her pain. States performing the at home hand exercises aggravates her shoulder pain. [facility] Medical History Rash Bronchiectasis Pseudomonal pneumonia Abnormal chest x-ray Statin intolerance Essential hypertension Atherosclerotic cardiovascular disease PAF (paroxysmal atrial fibrillation) Non-rheumatic aortic stenosis Murmur, heart GERD (gastroesophageal reflux disease) Cough Asthma-COPD overlap syndrome Bronchitis Surgical History History of left knee replacement History of carpal tunnel release Family History Mother Breast cancer Father Heart attack Other Allergies Social History Household Members: Spouse Housing: House Do you presently have visiting nurse or other home services: No Alcohol intake: former Comment: stiffness Patient Tobacco Use Status: Never used Tobacco service: No Physical Exam Vital Signs: BMI result Body Mass Index 30.1 Extrem Other: Patient is alert, oriented, and in no acute distress. Neuro: Normal sensation of the tips of all digits of the left hand at this time Vascular: Cap refill brisk Pain: No tenderness to palpation about the skin tear at the level of the fracture of the left ulna No tenderness to palpation about left ulnar shaft that level of fracture ROM: Patient is able to make a closed fist and extend all digits of the left hand fully Skin: Skin tear well healed at this time General: No ecchymosis, erythema, or evidence of infection. Psych: Appears grossly normal Affect normal Attitude cooperative Results Reviewed Results Reviewed: X-rays obtained in the office today and independently reviewed by me, Edgar Brooke PA-C, demonstrate nondisplaced fracture of the right ulnar shaft with evidence of good interval bony healing. Assessment & Plan Assessment & Plan (1) Noninfected skin tear of right lower extremity: Code(s): S81.811A - Laceration without foreign body, right lower leg, initial encounter Category: Medical (2) Fracture of left ulna: Code(s): S52.202A - Unspecified fracture of shaft of left ulna, initial encounter for closed fracture Category: Medical (3) Fall: Code(s): W19.XXXA - Unspecified fall, initial encounter Category: Medical (4) Laceration of skin of left knee without complication: Code(s): S81.012A - Laceration without foreign body, left knee, initial encounter Category: Medical (5) Skin tear of forearm without complication: Code(s): S51.819A - Laceration without foreign body of unspecified forearm, initial encounter Category: Medical (6) Acromioclavicular joint separation, type 1: Code(s): S43.109A - Unspecified dislocation of unspecified acromioclavicular joint, initial encounter Category: Medical Plan 1. Left ulna fracture 2. Left grade 1 AC joint separation 3. . Skin tear of the left forearm 4. . Skin tears of bilateral knees Date of injury 06/06/2025 Patient is educated about this condition Patient is educated about the typical recovery course Patient is a this time is provided with a Velcro wrist splint to be worn with high-risk daytime activities She patient should remove this splint while at rest to work on range of motion of the left wrist Continue following up with wound care as needed 2 lb weight limit in left upper extremity increasing to 5 lb over the next 4 weeks Of note, patient is cleared for physical therapy to begin working on the left shoulder for range of motion and stabilization of the left shoulder in the setting of grade 1 AC joint separation Follow-up in 4 week for reassessment, sooner with any acute concerns Orders: Orders XR forearm LT 2V Today S52.209A - Unspecified fracture of shaft of unspecified ulna, initial encounter for closed fracture, S52.90XA - Unspecified fracture of unspecified forearm, initial encounter for closed fracture Coding Level of Care Code Global (08118) Diagnoses Noninfected skin tear of right lower extremity S81.811A Fracture of left ulna S52.A Fall W19.XXXA Laceration of skin of left knee without complication S81.012A Skin tear of forearm without complication S51.819A Acromioclavicular joint separation, type 1 S43.109A
[2025-08-05 11:49] VITALS: BMI 30.1
== END 2025-08-05 12:13 | disposition home or self-care (01) ==
LOC: HO.HOS 11:21
DX: S81.811A Laceration without foreign body, right lower leg, initial encounter (principal); S52.202A Unspecified fracture of shaft of left ulna, initial encounter for closed fracture; W19.XXXA Unspecified fall, initial encounter; S81.012A Laceration without foreign body, left knee, initial encounter; S51.819A Laceration without foreign body of unspecified forearm, initial encounter; S43.109A Unspecified dislocation of unspecified acromioclavicular joint, initial encounter
CPT/HCPCS: 99213

== ENCOUNTER → 2025-08-05 11:29 | Outpatient (BNV) | payer MEDICARE, SELFPAY | PROVIDERS: Visit Provider Radiology Diagnostic Radiology | DX: S52.202A Unspecified fracture of shaft of left ulna, initial encounter for closed fracture (principal); M85.831 Other specified disorders of bone density and structure, right forearm | CPT/HCPCS: 73090 ==